=== PATIENT | female | born 1945 | race Caucasian/White ===

== ENCOUNTER → 2016-08-16 | Outpatient (CLI) | payer OTHER, MEDICARE ==
[~2016-08-16] MED LIST: ADVIN50050; ALBUAER2; ALL60; AMLO-110; ASPEC325; ATOR-26 PO; CARV12.52 PO; CHOL1000 PO; CLOP1TAB15 PO; CRDCD180; CZR50; EZET10TA38; HYDC25; HYDR25TA4 PO; INSU1INJ SC; INSUINJ; INSUINJ17; LSX20; LVMI; MAGN400T6; METH4PAK PO; NIAC1TAB59; NIFE30TA83 PO; POTASSIUM; PRLSR20 PO; SPIR25TA PO; SYN112
[2016-08-16 14:18] LABS: ALT/SGPT 31 U/L (12-78); AST/SGOT 19 U/L (15-37); BLOOD UREA NITROGEN 24 mg/dl (7-18); BUN/CREATININE RATIO 18.4 (10-20); CALCIUM 8.9 mg/dl (8.5-10.1); CARBON DIOXIDE 25 mmol/L (21-32); CHLORIDE 108 mmol/L (98-107); GLUCOSE 158 mg/dl (70-99); POTASSIUM 4.2 mmol/L (3.5-5.1); SODIUM 141 mmol/L (136-145)
[2016-08-16 14:29] LABS: ALB/GLOB RATIO 1.1 (0.9-2); ALKALINE PHOSPHATASE 123 U/L (45-117); CHOLESTEROL 162 mg/dl (0-200); CHOLESTEROL/HDL RATIO 3.6; HDL CHOLESTEROL 45 mg/dl; LDL CHOLESTEROL CALCULATED 88 mg/dl; TRIGLYCERIDES 143 mg/dl (0-150); VERY LOW DENSITY LIPOPROT CALC 29 mg/dl
[2016-08-16 14:35] LABS: ESTIMATED AVERAGE GLUCOSE 203 mg/dl; HA1C FLAG Normal (Normal)
== END | disposition home or self-care (01) ==
LOC: C.LABMFLN 08:12
PROVIDERS: ATTEND Family Medicine
DX: E11.51 Type 2 diabetes mellitus with diabetic peripheral angiopathy without gangrene (principal); E11.42 Type 2 diabetes mellitus with diabetic polyneuropathy; N18.3 Chronic kidney disease, stage 3 (moderate); I12.9 Hypertensive chronic kidney disease with stage 1 through stage 4 chronic kidney disease, or unspecified chronic kidney disease; E78.00 Pure hypercholesterolemia, unspecified; E03.9 Hypothyroidism, unspecified; E11.22 Type 2 diabetes mellitus with diabetic chronic kidney disease

== ENCOUNTER → 2016-09-17 | Outpatient (CLI) | payer OTHER, MEDICARE ==
[~2016-09-17] MED LIST changes: +AMOX875T PO; +CIPR-255 PO; +DOXY100C76 PO; +OXYC-57 PO
[2016-09-17 13:32] LABS: URINE APPEARANCE CLEAR (CLEAR); URINE BILIRUBIN NEG (NEG); URINE COLOR YELLOW; URINE NITRITE NEG (NEG); URINE SPECIFIC GRAVITY 1.013 (1.000-1.030); UROBILINOGEN NEG (NEG)
[2016-09-17 13:33] LABS: HEMATOCRIT 36.7 % (37-47); MEAN CELL VOLUME 93.9 fL (80-100); MEAN CORPUSCULAR HEMOGLOBIN 30.4 pg (25-34); MEAN CORPUSCULAR HGB CONC 32.4 g/dl (32-36); MEAN PLATELET VOLUME 10.9 fL (7.4-10.4); PLATELET COUNT 268 K/uL (130-400); RED BLOOD COUNT 3.91 M/uL (4.2-5.4); WHITE BLOOD COUNT 9.93 K/uL (4.8-10.8)
[2016-09-17 13:41] LABS: URINE PROTIEN/CREAT RATIO 0.1 (0-0.2); URINE TOTAL PROTEIN 10.9 mg/dl (0-11.9)
[2016-09-17 13:57] LABS: MANUAL MICROSCOPIC REQUIRED? NO; REVIEW REQ? NO
[2016-09-17 14:33] LABS: BLOOD UREA NITROGEN 28 mg/dl (7-18); BUN/CREATININE RATIO 20.3 (10-20); CALCIUM 9.1 mg/dl (8.5-10.1); CARBON DIOXIDE 23 mmol/L (21-32); CHLORIDE 105 mmol/L (98-107); GLUCOSE 206 mg/dl (70-99); PHOSPHORUS 3.8 mg/dl (2.5-4.9); POTASSIUM 4.3 mmol/L (3.5-5.1); SODIUM 139 mmol/L (136-145)
== END | disposition home or self-care (01) ==
LOC: C.LABMFLN 09:35
PROVIDERS: ATTEND Internal Medicine Nephrology
DX: N18.3 Chronic kidney disease, stage 3 (moderate) (principal)

== ENCOUNTER → 2016-12-03 | Outpatient (CLI) | payer OTHER, MEDICARE ==
[~2016-12-03] MED LIST changes: -AMOX875T PO; -CIPR-255 PO; -DOXY100C76 PO; -OXYC-57 PO
[2016-12-03 13:37] LABS: ESTIMATED AVERAGE GLUCOSE 192 mg/dl; HA1C FLAG Normal (Normal)
[2016-12-03 13:55] LABS: BLOOD UREA NITROGEN 26 mg/dl (7-18); BUN/CREATININE RATIO 19.8 (10-20); CARBON DIOXIDE 25 mmol/L (21-32); CHLORIDE 110 mmol/L (98-107); GLUCOSE 161 mg/dl (70-99); POTASSIUM 4.8 mmol/L (3.5-5.1); SODIUM 142 mmol/L (136-145)
== END | disposition home or self-care (01) ==
LOC: C.LABMFLN 08:36
PROVIDERS: ATTEND Family Medicine
DX: E11.9 Type 2 diabetes mellitus without complications (principal); E78.00 Pure hypercholesterolemia, unspecified; E03.9 Hypothyroidism, unspecified; E55.9 Vitamin D deficiency, unspecified

== ENCOUNTER → 2016-12-05 | Outpatient (CLI) | payer OTHER, MEDICARE ==
--- NOTE | 2016-12-05 15:51 | MAMMOGRAPHY REPORT ---
BILATERAL DIGITAL SCREENING MAMMOGRAM WITH CAD: 12/05/2016 CLINICAL HISTORY: Routine screening. Patient has no complaints. TECHNIQUE: Bilateral CC and MLO views were obtained. Current study was also evaluated with a Compute r Aided Detection (CAD) system. COMPARISON: Comparison is made to exams dated: 12/01/2015 mammogram, 11/09/2014 mammogram, 04/07/2013 ma mmogram, 04/03/2012 mammogram, 03/15/2011 mammogram, and 02/08/2010 mammogram - [facility] nter. BREAST COMPOSITION: There are scattered areas of fibroglandular density in both breasts. FINDINGS: There is mild vascular calcification in the breasts. Scattered benign-appearing coarse mumtaz cifications. No new suspicious mass, architectural distortion or cluster of microcalcifications is s een. IMPRESSION: ACR BI-RADS CATEGORY 1: NEGATIVE There is no mammographic evidence of malignancy. A 1 year screening mammogram is recommended. The pa tient will receive written notification of the results. Approximately 10% of breast cancers are not detected with mammography. A negative mammographic report should not delay biopsy if a clinically suggestive mass is present. Britt Akbar M.D. ay/:12/05/2016 12:49:10 Pesticide Use Medical Coordinator: Patricia BARRERA(R)(M), [facility] letter sent: Normal 1/2 BI-RADS Code: ACR BI-RADS Category 1: Negative
== END | disposition home or self-care (01) ==
LOC: C.MAMM 10:39
PROVIDERS: ATTEND Family Medicine
DX: Z12.31 Encounter for screening mammogram for malignant neoplasm of breast (principal)

== ENCOUNTER → 2016-12-06 | Outpatient (CLI) | payer OTHER, MEDICARE ==
[2016-12-06 13:34] LABS: BASO % 0.2 %; BASO ABS # 0.01 K/uL (0-0.2); COMPLETE YES; EOS % 3.2 %; HEMATOCRIT 35.3 % (37-47); IG% 0.2 %; LYMPH % 20.6 %; LYMPH ABS # 1.36 K/uL (1.2-3.4); MEAN CELL VOLUME 93.6 fL (80-100); MEAN CORPUSCULAR HEMOGLOBIN 30.8 pg (25-34); MEAN CORPUSCULAR HGB CONC 32.9 g/dl (32-36); MONO % 6.8 %; PLATELET COUNT 183 K/uL (130-400); RED BLOOD COUNT 3.77 M/uL (4.2-5.4)
[2016-12-06 14:25] LABS: AMYLASE 81 U/L (25-115)
== END | disposition home or self-care (01) ==
LOC: C.LABMFLN 09:34
PROVIDERS: ATTEND Family Medicine
DX: R10.12 Left upper quadrant pain (principal); R59.0 Localized enlarged lymph nodes

== ENCOUNTER → 2016-12-11 | Outpatient (CLI) | payer OTHER, MEDICARE ==
--- NOTE | 2016-12-11 07:44 | DIAGNOSTIC IMAGING REPORT ---
SOFT TISSUE NECK WITHOUT HISTORY:71 [id number] Cervical lymphadenopathy. Patient complains of pain within the region of the mandible for approximately 2 months. COMPARISON: Brain MR 01/30/2016. TECHNIQUE: Multiple axial CT images of the soft tissues of the neck were obtained without IV contrast. FINDINGS: There is a 2 x 2 mm calculus within the superficial lobe of the anterior left parotid gland nicely seen on image 28 of the axial series compatible with sialolith. No obstructing calculus is seen within Stensen's duct. No inflammatory changes or mass identified. Bilateral submandibular and sublingual glands appear unremarkable. The nasopharynx, oropharynx and hypopharynx appear unremarkable. The preglottic fat is maintained and appears normal. The vallecula and piriform sinuses are symmetric. No pathologic adenopathy of the neck identified. Extensive atherosclerotic plaquing of the bilateral carotid bulbs is seen. Thyroid is homogeneous. There is mild biapical centrilobular emphysema. There is a 4 mm groundglass nodule of the apical posterior segment left upper lobe. 4 mm ground glass nodule in the apical segment right upper lobe also noted. Moderate ethmoid and maxillary mucosal thickening is present. Bubbly secretions are present within the left sphenoid sinus. The sella appears to be partially empty. There is prominent atherosclerotic plaquing of the vertebral arteries. Prior bilateral cataract repair. Multilevel facet arthropathy and intervertebral disc space narrowing is seen within the cervical spine. Disc space narrowing is most pronounced at the C5-C6 and C6-C7 levels. There is 4 mm anterolisthesis of C4 on C5 which is likely degenerative. IMPRESSION: 1. 2 x 2 mm sialolith involves the superficial lobe of the anterior left parotid gland without obstructing calculus seen within the parotid duct. No associated inflammatory changes identified. 2. No adenopathy of the neck. 3. Moderate paranasal sinus disease as above. 4. Extensive atherosclerotic plaquing of the bilateral carotid bulbs. 5. Multilevel degenerative changes of the cervical spine, most pronounced at C5-C6 and C6-C7. The above report was generated using voice recognition software. It may contain grammatical, syntax or spelling errors. Electronically signed by: Nathan Bell 12/11/2016 7:43 AM Dictated Date/Time: 12/11/2016 7:29 AM
--- NOTE | 2016-12-11 07:47 | DIAGNOSTIC IMAGING REPORT ---
GI SERIES W/AIR ROUTINE CLINICAL HISTORY: R10.12 Abdominal pain, [facility] [phone] [id number] [id number] E [id number]. Nausea. COMPARISON STUDY: None FLUOROSCOPY TIME: 2.3 minutes. FINDINGS: Patient initiates swallowing function well. The esophagus is normal in course and caliber. Gas esophageal junction is normal. Size and configuration stomach are normal. Duodenal bulb fills well. Duodenal sweep is unremarkable. IMPRESSION: Normal study Electronically signed by: Hussain Wing M.D. 12/11/2016 7:46 AM Dictated Date/Time: 12/11/2016 7:39 AM
== END | disposition home or self-care (01) ==
LOC: C.CTS 06:36
PROVIDERS: ATTEND Family Medicine
DX: R59.0 Localized enlarged lymph nodes (principal); R10.12 Left upper quadrant pain; I65.23 Occlusion and stenosis of bilateral carotid arteries; M47.892 Other spondylosis, cervical region; K11.5 Sialolithiasis

== ENCOUNTER → 2016-12-18 | Outpatient (CLI) | payer OTHER, MEDICARE ==
[2016-12-18 13:22] LABS: HEMATOCRIT 38.3 % (37-47)
[2016-12-18 13:40] LABS: TOTAL IRON BINDING CAPACITY 286 mcg/dl (250-450)
--- NOTE | 2016-12-27 07:01 | CODING QUERY MEDICAL NECESSITY ---
CQSUPPORTING DIAGNOSIS NEEDED A supporting diagnosis is required for the test/procedure performed on this patient in order for us to be reimbursed by the patient's insurance. Please provide a supporting diagnosis for the following test/procedure listed below next to the test name along with your signature. *If there is no additional diagnosis for this patient that would support the following test/procedure please document that below next to the test/procedure. Test(s)/Procedure(s) that require a supporting diagnosis: DOS 12/18/16 VITAMIN B12 TEST FOLIC ACID TEST Provider Signature: Date: Thank you Concepcion Griffith Health Information Management Once completed, please kindly fax back to [phone] For questions please call [phone]
== END | disposition home or self-care (01) ==
LOC: C.LABMFLN 08:57
PROVIDERS: ATTEND Family Medicine
DX: D64.9 Anemia, unspecified (principal)

== ENCOUNTER → 2017-01-29 | Outpatient (CLI) | payer OTHER, MEDICARE ==
[~2017-01-29] MED LIST changes: +CLOPIDOGREL BISULFATE 300 MG TAB PO ONE; +HYDROCORTISONE SOD SUCCINATE 100 MG/2 ML VIAL ONE
--- NOTE | 2017-01-29 11:22 | DIAGNOSTIC IMAGING REPORT ---
(CHEST) THORAX WITHOUT CT DOSE: 317.63 mGycm HISTORY: SCLERODERMA-PT WENT TO [facility] TECHNIQUE: Multiaxial CT images of the chest were performed without contrast. A dose lowering technique was utilized adhering to the principles of ALARA. COMPARISON: Abdomen and pelvis CT 12/03/2006. FINDINGS: The central airways are patent. No pleural effusions. No pneumothorax. There are innumerable scattered pulmonary nodules most pronounced within the lower lobes. The majority of these are groundglass. Some of the groundglass nodules demonstrate central cavitation. Minimal nodular thickening along the fissures. Dominant solid nodule is seen within the left lower lobe on image 188 and measures 7 mm. Mild subpleural reticulation is seen within the lungs most pronounced within the lower lobes. No suspicious lytic or blastic osseous lesions. No mediastinal or hilar lymphadenopathy. The heart is normal in size. Limited views of the upper abdomen demonstrate a normal liver and spleen. The visualized adrenal glands are unremarkable. Cholecystectomy. Slightly distended and partially fluid-filled mid to distal esophagus. Mild calcified plaque within the normal caliber thoracic aorta. Densely calcified left axillary lymph node. IMPRESSION: 1. There are innumerable scattered subcentimeter pulmonary nodules most pronounced within the lower lobes. The majority of these are groundglass and some of these demonstrate central cavitation. These are nonspecific but favor chronic inflammatory/infectious change given the relative stability from a [address] The dominant solid nodule within the left lower lobe measures 7 mm. Please refer to the chart below for recommended follow-up. 2. Mildly distended and fluid-filled esophagus which is typically seen in a patient with a history of scleroderma. 3. Mild subpleural reticulation within the lungs and a few subpleural nodular densities suggestive of a nonspecific interstitial pneumonitis (NSIP). Please refer to below summary of Fleischner criteria recommendations for follow-up of incidental CT nodules (Sherry Adams, Guidelines for management of small pulmonary nodules detected on CT scans: A statement from the Fleischner Society, Radiology 237: [phone].) SOLID NODULES Solitary nodule size: <6 mm * Low risk patients: no follow-up needed * high risk patients: optional CT at 12 months Solitary nodule size: 6-8 mm * Low risk patients: follow-up at 6-12 months, then consider further follow-up at 18-24 months * high risk patients: initial follow-up CT at 6-12 months and then at 18-24 months if no change Solitary nodule size: >8 mm * either low or high risk patients - consider follow-up CT at 3 months, and/or CT-PET, and/or biopsy Multiple nodules size: <6 mm * Low risk patients: no routine follow-up * high risk patients: optional CT at 12 months Multiple nodules size: 6-8 mm * Low risk patients: follow-up at 3-6 months, then consider further follow-up at 18-24 months * high risk patients: follow-up at 3-6 months, then at 18-24 months if no change Multiple nodules size: >8 mm * Low risk patients: follow-up at 3-6 months, then consider further follow-up at 18-24 months * high risk patients: follow-up at 3-6 months, then at 18-24 months if no change Note: newly detected indeterminate nodule in persons 35 years of age or older. * Low risk patients: minimal or absent history of smoking and/or other known risk factors * high risk patients: history of smoking or of other known risk factors (e.g. first degree relative with lung cancer, or exposure to asbestos, radon, uranium) * if a nodule up to 8 mm is partly solid or is ground glass further follow-up is required after 24 months to exclude possible slow growing adenocarcinoma (ANUPAMA) SUBSOLID NODULES Solitary pure ground-glass nodule * nodule size <6 mm - no CT follow-up required * nodule size >=6 mm - follow-up CT at 6-12 months, then every 2 years until 5 years Solitary part-solid nodule * nodule size <6 mm - no CT follow-up required * nodule size >=6 mm - follow-up CT at 3-6 months. If unchanged, and solid component remains <6 mm, then annual follow-up for 5 years Multiple subsolid nodules * nodule size <6 mm - follow-up CT at 3-6 months, consider further follow-up at 2 and 4 years if stable * nodule size >=6 mm - follow-up CT at 3-6 months, subsequent management based on the most suspicious nodule(s) Electronically signed by: Severiano Brown M.D. 01/29/2017 2:10 PM Dictated Date/Time: 01/29/2017 11:13 AM
--- NOTE | 2017-01-29 17:40 | ECHOCARDIOGRAM REPORT ---
*NOTICE TO RECEIVING DEMOCRAT AGENCY This information is strictly Confidential and protected under [place] law. [place] law prohibits you from making any further disclosure of this information unless further disclosure is expressly permitted by the written consent of the person to whom it pertains or is authorized by law. A general authorization for the release of medical or other information is not sufficient for this purpose. Hospital accepts no responsibility if the information is made available to any other person, INCLUDING THE PATIENT. Interpretation Summary * Name: BARRON BOND Study Date: 01/29/2017 11:36 AM BP: 170/57 mmHg * Patient Location: [facility] HR: 59 * : 1945 (M/d/yyyy) Gender: Female Height: 65 in * Age: 71 yrs Ethnicity: CA Weight: 175 lb * Ordering Physician: Agustín Jarvis * Referring Physician: Agustín Jarvis * Performed By: Radha Krishnan RCS * * Reason For Study: SCLERADERMA * BSA: 1.9 m2 * Normal left ventricular systolic function. * Moderate concentric left venntricular hypertrophy. * Type II LV diastolic dysfunction. * Trace pulmonic, mitral, and tricuspid regurgitation. * -- Conclusions -- * Aortic valve sclerosis moderate, without significant aortic valvular stenosis. Procedure Details * A complete two-dimensional transthoracic echocardiogram was performed (2D, M-mode, Doppler and color flow Doppler). Left Ventricle * The left ventricle is normal in size. * There is moderate concentric left ventricular hypertrophy. * Left ventricular systolic function is normal. * Ejection Fraction = 55-60%. * A full diastolic examination was done with clinical findings of Class II diastolic dysfunction. * The left ventricular wall motion is normal. Right Ventricle * The right ventricle is normal in size and function. Atria * The left atrium is moderately dilated. * Right atrial size is normal. * No ASD detected; PFO is not assessed. Mitral Valve * The mitral valve is normal. * There is no mitral valve stenosis. * There is trace mitral regurgitation. Tricuspid Valve * The tricuspid valve is normal. * There is no tricuspid stenosis. * There is trace tricuspid regurgitation. Aortic Valve * Aortic valve sclerosis moderate, without significant aortic valvular stenosis. * No hemodynamically significant valvular aortic stenosis. * No aortic regurgitation is present. Pulmonic Valve * The pulmonary valve is inadequately visualized, but the Doppler data is adequate for interpretation. * There is no pulmonic valvular stenosis. * Trace pulmonic valvular regurgitation. Great Vessels * The aortic root is normal size. Pericardium/Pleural * There is no pericardial effusion. Great Vessels * Normal inferior vena cava diameter and respiratory variation suggests normal central venous pressure. MMode 2D Measurements and Calculations IVSd 1.6 cm IVSs 1.7 cm LVIDd 4.8 cm LVIDs 3.3 cm LVPWd 1.5 cm LVPWs 1.5 cm IVS/LVPW 1.1 FS 32.1 % EDV(Teich) 107.4 ml ESV(Teich) 42.7 ml EF(Teich) 60.2 % EDV(cubed) 110.5 ml ESV(cubed) 34.5 ml EF(cubed) 68.8 % % IVS thick 4.8 % % LVPW thick 1.1 % LV mass(C)d 323.9 grams LV mass(C)dI 173.3 grams/m\S\2 LV mass(C)s 198.6 grams LV mass(C)sI 106.3 grams/m\S\2 SV(Teich) 64.7 ml SI(Teich) 34.6 ml/m\S\2 SV(cubed) 75.9 ml SI(cubed) 40.6 ml/m\S\2 Ao root diam 3.0 cm Ao root area 6.9 cm\S\2 ACS 1.8 cm LA dimension 4.9 cm LA/Ao 1.6 LVOT diam 1.8 cm LVOT area 2.6 cm\S\2 LVAd ap4 33.9 cm\S\2 LVLd ap4 8.6 cm EDV(MOD-sp4) 113.6 ml EDV(sp4-el) 113.9 ml LVAs ap4 22.6 cm\S\2 LVLs ap4 7.1 cm ESV(MOD-sp4) 59.2 ml ESV(sp4-el) 61.2 ml EF(MOD-sp4) 47.9 % EF(sp4-el) 46.3 % LVAd ap2 31.0 cm\S\2 LVLd ap2 7.7 cm EDV(MOD-sp2) 100.1 ml EDV(sp2-el) 106.0 ml LVAs ap2 19.9 cm\S\2 LVLs ap2 6.7 cm ESV(MOD-sp2) 51.0 ml ESV(sp2-el) 50.7 ml EF(MOD-sp2) 49.0 % EF(sp2-el) 52.2 % LVLd %diff -11.11 % EDV(MOD-bp) 109.8 ml LVLs %diff -6.49 % ESV(MOD-bp) 56.4 ml EF(MOD-bp) 48.6 % SV(MOD-sp4) 54.4 ml SI(MOD-sp4) 29.1 ml/m\S\2 SV(MOD-sp2) 49.1 ml SI(MOD-sp2) 26.3 ml/m\S\2 SV(MOD-bp) 53.4 ml SI(MOD-bp) 28.5 ml/m\S\2 SV(sp4-el) 52.7 ml SI(sp4-el) 28.2 ml/m\S\2 SV(sp2-el) 55.3 ml SI(sp2-el) 29.6 ml/m\S\2 Doppler Measurements and Calculations MV E max elana 120.2 cm/sec MV A max elana 105.7 cm/sec MV E/A 1.1 MV P1/2t max elana 118.9 cm/sec MV P1/2t 71.2 msec MVA(P1/2t) 3.1 cm\S\2 MV dec slope 488.9 cm/sec\S\2 MV dec time 0.19 sec Ao V2 max 136.3 cm/sec Ao max PG 7.4 mmHg Ao max PG (full) 3.9 mmHg CHIQUI(V,A) 1.8 cm\S\2 CHIQUI(V,D) 1.8 cm\S\2 LV V1 max PG 3.6 mmHg LV V1 max 94.4 cm/sec PA V2 max 93.0 cm/sec PA max PG 3.5 mmHg
--- NOTE | 2017-01-30 16:52 | PULMONARY FUNCTION TEST ---
CLINICAL DATA: The patient is a 71-year-old female with height of 65 inches and a weight of [address] Agustín Jarvis for evaluation of scleroderma. Spirometry pre- and post-bronchodilator, lung volumes, and DLCO were performed. FINDINGS: Pre-bronchodilator spirometry demonstrates mild obstructive airways disease. FVC was 85% of predicted. FEV1 was 75% of predicted. [id number] was 46% of predicted. There was improvement after inhaled bronchodilator. FVC improved 2% to 87% predicted. FEV1 improved 1% to 76% of predicted. [id number] improved 19% to 55% of predicted. Lung volumes did not show significant restrictive lung disease. Residual volume is 93% of predicted. Diffusion capacity is moderately reduced at 58% of predicted with a normal DLCO/VA of 100% of predicted. IMPRESSION: Mild obstructive airways disease with improvement in smaller airway after inhaled bronchodilator. No evidence of restrictive lung disease on lung volumes. Moderate reduction in diffusion capacity. MTDD
== END | disposition home or self-care (01) ==
LOC: C.RC 09:49
PROVIDERS: ATTEND Family Medicine
DX: M34.9 Systemic sclerosis, unspecified (principal)

== ENCOUNTER 2017-02-15 06:56 | Inpatient (IN) | payer OTHER, MEDICARE ==
[~2017-02-15] VITALS: Ht 165.1 cm; Wt 79.3 kg
[2017-02-15] VITALS (20 sets, daily range): BP systolic 139–179; BP diastolic 66–96; PULSE 52–80; TEMP 36.4–36.7; O2SAT 92–99; Ht 165.1 cm; Wt 79.3 kg
[~2017-02-15 06:56] MED LIST changes: -ATOR-26 PO; -CARV12.52 PO; -CHOL1000 PO; -CLOP1TAB15 PO; -CLOPIDOGREL BISULFATE 300 MG TAB PO ONE; -HYDR25TA4 PO; -HYDROCORTISONE SOD SUCCINATE 100 MG/2 ML VIAL ONE; -INSU1INJ SC; -LVMI; -METH4PAK PO; -NIFE30TA83 PO; -PRLSR20 PO; -SPIR25TA PO
[2017-02-15] MEDS ORDERED: SODIUM CHLORIDE 0.9% 1000ML 1,000 ML IV SCH (07:19)
[2017-02-15] MEDS ORDERED: CEFAZOLIN 1000MG/55 ML D5W 55 ML IV SCH (07:30)
[2017-02-15] MEDS ORDERED: HYDR25TA4 PO (07:49)
[2017-02-15] MEDS ORDERED: ATOR-26 PO (07:49)
[2017-02-15] MEDS ORDERED: SPIR25TA PO ×2 (07:49→07:51)
[2017-02-15] MEDS ORDERED: NIFE30TA83 PO (07:49)
[2017-02-15] MEDS ORDERED: CHOL1000 PO (07:49)
[2017-02-15] MEDS ORDERED: LVMI (07:49)
[2017-02-15] MEDS ORDERED: CARV12.52 PO (07:49)
[2017-02-15] MEDS ORDERED: PRLSR20 PO (07:49)
[2017-02-15] MEDS ORDERED: CLOP1TAB15 PO (07:49)
[2017-02-15] MEDS ORDERED: INSU1INJ SC (07:53)
[2017-02-15] MEDS ORDERED: ATROPINE SULFATE 0.1 MG/ML 5ML SYR IV PRN (08:00)
[2017-02-15] MEDS ORDERED: FENTANYL CITRATE INJ 50 MCG/1 ML 2 ML VIAL IV PRN (08:00)
[2017-02-15] MEDS ORDERED: EpHEDrine SULFATE INJ 50 MG/ML AMP IV PRN (08:00)
[2017-02-15] MEDS ORDERED: ONDANSETRON INJ 2 MG/ML 2 ML VIAL IV PRN ×2 (08:00→11:30)
[2017-02-15 08:10] LABS: CREATININE 1.5 mg/dl (0.60-1.20)
--- NOTE | 2017-02-15 08:26 | History and Physical ---
History & Physical Date Feb 15, 2017. (Marzena Pastor, EDILIA) Chief Complaint RLE PAD with rest pain (Marzena Pastor, EDILIA) History of Present Illness The patient is a 71 year old female with hx of scleroderma, HTN, DMII on insulin , hx of L CEA and LLE fem-pop bypass in remote past, seen today for RLE PAD with rest pain. Pt has known PAD and underwent LLE fem-pop bypass at [facility] by Dr Radha Lopez. Pt states RLE became painful with ambulation about 2-3 weeks ago, but worsened to severe pain that has been keeping her awake at night for past few days, so she called our office. Pt denies QUINTERO, fever, chills, chest pain, SOB, abd pain, N/V, other ulcerations. Arterial US in office demonstrates severe disease RLE and ARABELLA of 0.2. (Marzena Pastor, EDILIA) Allergies Coded Allergies: Iodinated Diagnostic Agents (Verified Allergy, Intermediate, HIVES - IVP DYE, 02/15/17) CHECO Inhibitors (Unverified Allergy, Mild, 02/15/17) Insulin Aspart (Verified Allergy, Mild, UNKNOWN, 02/15/17) Insulin Glargine (Verified Allergy, Mild, UNKNOWN, 02/15/17) Enflurane (Verified Allergy, Unknown, 02/15/17) Home Medications Scheduled Atorvastatin (Lipitor), 80 MG PO DAILY Carvedilol (Coreg), 1 TAB PO BID Cholecalciferol (Vitamin D3), 1 TAB PO DAILY Clopidogrel (Plavix), 75 MG PO DAILY Hydrochlorothiazide (Hctz), 1 TAB PO DAILY Omeprazole (Prilosec), 20 MG PO DAILY Spironolactone (Aldactone), 25 MG PO BID Miscellaneous Medications Albuterol (Ventolin) Fluticasone Prop/Salmeterol (Advair Diskus 500/50 Mcg *) Furosemide (Lasix *) Insulin Detemir (Levemir), 32 Insulin Isophan/Regular (Humulin 70/30), 0 SC Levothyroxine (Synthroid *) Losartan Potassium (Cozaar *) Nifedipine Ext Rel (Procardia Xl Ext Rel), 30 MG PO Surgical / Medical History Past Medical/Surgical History: Diabetes, Hypertension (Marzena Pastor PA-C) Family History + DMII, HTN (Marzena Pastor PA-C) Social History Smoking Status: Never Smoker (Marzena Pastor PA-C) Review of Systems Constitutional: No chills, No fever, No malaise Skin: No change in color Eyes: No visual changes ENMT: No sore throat Respiratory: No cough, No PRATHER Cardiovascular: + intermittent claudication, No chest pain, No edema Gastrointestinal: No abdominal pain, No nausea, No vomiting Genitourinary - Female: No dysuria, No hematuria Neurologic: No dizziness, No headache, No numbness, No tingling (Marzena Pastor PA-C) Physical Exam Constitutional: General Apperance: heathly-appearing, well-nourished, well-developed Level of Distress: NAD Psychiatric: Mental Status: active & alert, normal mood, normal affect Orientation: oriented except where noted, to time, to place, to person Memory: recent memory normal, remote memory normal Head: normocephalic, atraumatic Eyes: EOM: EOMI ENMT: normal ENT inspection, hearing grossly normal Neck: supple, trachea midline Lungs: Respiratory effort: no dyspnea Auscultation: no rales/crackles, no rhonchi, decreased breath sounds Cardiovascular: Apical Impulse: not displaced Heart Auscultation: RRR, no rubs, no gallops Peripheral Pulses: Pulses: full and equal, in all extremities except if noted Bruits: none appreciated Carotid Pulse: normal on the left, normal on the right Brachial Pulses: normal on the left, normal on the right Radial Pulse: normal on the left, normal on the right Femoral Pulse: normal on the left, normal on the right Posterior Tibialis Pulse: decreased on the left, absent on the right Dorsalis Pedis Pulse: decreased on the left, absent on the right Abdomen: Bowel Sounds: normal Inspection & Palpation: soft, non-distended, no tenderness, guarding & rebound Musculoskeletal: normal strength (5/5 throughout), normal tone Extremities: Upper Right: no cyanosis, no edema, no varicosities Upper Left: no cyanosis, no edema, no varicosities Lower Right: no cyanosis, no edema, no varicosities Lower Left: no cyanosis, no edema, no varicosities Neurologic: Cranial Nerves: grossly intact (Marzena Pastor, PA-C) Assessment and Plan ASSESSMENT and PLAN: Severe PAD with rest pain RLE Pt for RLE angiogram with intervention and possible fem-pop bypass by Dr Christianson today. Procedure, risks, benefits, and alternatives discussed with pt, she expresses understanding and agreement. (Marzena Pastor, PA-C) Patient was seen, examined, and chart reviewed. Agree with exam and treatment plan of the Vascular PA. Patient for revascularization of the right lower extremity. I have discussed the risks options and benefits of the procedure with the patient. The patient understands the risks options and benefits and agrees to the procedure. (Wesley Christianson M.D.)
[2017-02-15 08:36] LABS: COMPLETE YES; EOS % 4.7 %; HEMATOCRIT 35.4 % (37-47); IG% 0.4 %; LYMPH % 32.1 %; LYMPH ABS # 1.71 K/uL (1.2-3.4); MEAN CELL VOLUME 93.9 fL (80-100); MEAN CORPUSCULAR HEMOGLOBIN 30.8 pg (25-34); MEAN CORPUSCULAR HGB CONC 32.8 g/dl (32-36); MEAN PLATELET VOLUME 10.5 fL (7.4-10.4); MONO % 8.6 %; NEUT % 54.2 %; PLATELET COUNT 164 K/uL (130-400); RED BLOOD COUNT 3.77 M/uL (4.2-5.4); WHITE BLOOD COUNT 5.32 K/uL (4.8-10.8)
[2017-02-15] MEDS ORDERED: DiphenhydrAMINE HCL 50 MG/ML VIAL ONE (08:36)
[2017-02-15] MEDS ORDERED: HYDROCORTISONE SOD SUCCINATE 100 MG/2 ML VIAL ONE (08:37)
[2017-02-15 08:45] LABS: BUN/CREATININE RATIO 20.3 (10-20); CALCIUM 9.5 mg/dl (8.5-10.1); CREATININE 1.5 mg/dl (0.60-1.20); POTASSIUM 4.4 mmol/L (3.5-5.1)
[2017-02-15] MEDS ORDERED: DiphenhydrAMINE INJ 50 MG in SYRINGE 0 ML IV SCH ×2 (08:45→14:00)
[2017-02-15] MEDS ORDERED: PROPOFOL IV EMULSION 10 MG/ML 20 ML VIAL IV ONE (09:12)
[2017-02-15] MEDS ORDERED: FENTANYL CITRATE INJ 50 MCG/1 ML 2 ML VIAL ONE (09:12)
[2017-02-15] MEDS ORDERED: LIDOCAINE HCL 2% 2 ML VIAL (20MG/ML) ONE (09:12)
[2017-02-15] MEDS ORDERED: MIDAZOLAM HCL 1 MG/ML 2ML VIAL ONE (09:12)
[2017-02-15] MEDS ORDERED: ROCURONIUM BROMIDE 10 MG/ML 5 ML VIAL IV ONE (09:12)
[2017-02-15] MEDS ORDERED: SCOPOLAMINE 1.5 MG TDSY TD ONE (09:14)
[2017-02-15] MEDS ORDERED: LIDOCAINE HCL 1% 20 ML VIAL ONE (09:20)
[2017-02-15] MEDS ORDERED: GELATIN SPONGE SZ 100 ONE (09:20)
[2017-02-15] MEDS ORDERED: IODIXANOL (VISIPAQUE) 270 MG/ML 50ML ONE (09:20)
[2017-02-15] MEDS ORDERED: BUPIVACAINE/EPINEPHRINE 0.5% MPF 1:200,000 30 ML VIAL ONE (09:20)
[2017-02-15] MEDS ORDERED: PAPAVERINE HCL INJ 30 MG/ML 2 ML VIAL ONE (09:21)
[2017-02-15] MEDS ORDERED: HEPARIN SOD (PORCINE) 1000 UNIT/ML 10 ML VIAL ONE ×2 (09:21→11:22)
[2017-02-15] MEDS ORDERED: THROMBIN 5000 UNITS KIT ONE (09:21)
[2017-02-15] MEDS ORDERED: CEFAZOLIN SOD 1 GM VIAL ONE (09:21)
[2017-02-15] MEDS ORDERED: NURSING VERBAL MED ORDER ONE (09:30)
[2017-02-15] MEDS ORDERED: HYDROCORTISONE IV 100 MG in SYRINGE 0 ML IV SCH ×2 (09:45→14:00)
[2017-02-15] MEDS ORDERED: HEPARIN 25000 UNIT/500 ML D5W ONE (10:57)
[2017-02-15] MEDS ORDERED: GLYCOPYRROLATE INJ 0.2 MG/ML VIAL ONE (11:01)
[2017-02-15] MEDS ORDERED: NEOSTIGMINE METHYLSULFATE 5 MG/5 ML SYR ONE (11:01)
[2017-02-15] MEDS ORDERED: ONDANSETRON INJ 2 MG/ML 2 ML VIAL ONE (11:01)
[2017-02-15] MEDS ORDERED: IODIXANOL (VISIPAQUE) 270 MG/ML 150ML IV ONE (11:16)
[2017-02-15] MEDS ORDERED: ALTEPLASE, RECOMBINANT 0 MG in SODIUM CHLORIDE 0.9% 250ML 250 ML IV ONE ×2 (11:20)
--- NOTE | 2017-02-15 11:20 | [facility] Post Operative Brief Note ---
Immediate Operative Summary Operative Date Feb 15, 2017. Pre-Operative Diagnosis Severe PAD with rest pain RLE Post-Operative Diagnosis Same Procedure(s) Performed Right Lower Extremity Angiogram Mechanical Atherectomy right popliteal Percutaneous Angioplasty Popliteal Artery Insertion of Infusion Catheter for Thrombolysis Surgeon Lyndsay Driller Helper Surgeon(s) None Estimated Blood Loss 10 Findings right pop occlusion, no residual stenosis, distal lower leg occlusion of all three vessels Specimens None Anesthesia Gen Complication(s) None Disposition Surgical ICU
[2017-02-15] MEDS ORDERED: GLUCOSE 40% GEL 15 GM TUBE PO PRN (11:30)
[2017-02-15] MEDS ORDERED: DEXTROSE 50% 50 ML SYR IV PRN (11:30)
[2017-02-15] MEDS ORDERED: GLUCAGON FOR INJ 1 MG VIAL SQ PRN (11:30)
[2017-02-15] MEDS ORDERED: GLUCOSE 10 TABS/TUBE PO PRN (11:30)
[2017-02-15] MEDS ORDERED: MoRPHine SULFATE 2 MG/ML CARP IV PRN (11:30)
--- NOTE | 2017-02-15 11:59 | Anesthesiology Progress Note ---
Anesthesia Post Op Note Date & Time Feb 15, 2017 at 11:58 Vital Signs Pain Intensity: 0 Vital Signs Past 12 Hours Date Time Temp Pulse Resp B/P (MAP) Pulse Ox O2 Delivery O2 Flow Rate FiO2 02/15/17 11:49 36.6 59 17 163/66 98 Oxymask 10 02/15/17 11:40 36.6 60 17 165/67 98 Oxymask 10 02/15/17 11:31 36.4 60 18 155/66 98 Oxymask 10 02/15/17 07:33 36.5 52 18 146/67 (93) 99 Room Air Notes Mental Status: alert / awake / arousable, participated in evaluation Pt Amnestic to Procedure: Yes Nausea / Vomiting: adequately controlled Pain: adequately controlled Airway Patency, RR, SpO2: stable & adequate BP & HR: stable & adequate Hydration State: stable & adequate Anesthetic Complications: no major complications apparent Pt was being taken straight to ICU for TPA management. Pt was stable intra- operatively. Pt was transported to the ICU with O2 and monitors. Report was given to the mold yarn supervisor. Care was transferred to the ICU team.
[2017-02-15 12:07] LABS: COMPLETE YES; EOS % 2.3 %; HEMATOCRIT 35.3 % (37-47); IG% 0.3 %; LYMPH % 20.8 %; LYMPH ABS # 1.25 K/uL (1.2-3.4); MEAN CELL VOLUME 93.4 fL (80-100); MEAN CORPUSCULAR HGB CONC 33.1 g/dl (32-36); MEAN PLATELET VOLUME 10.9 fL (7.4-10.4); MONO % 2.8 %; NEUT % 73.8 %; PLATELET COUNT 148 K/uL (130-400); RED BLOOD COUNT 3.78 M/uL (4.2-5.4)
[2017-02-15 12:43] LABS: PARTIAL THROMBOPLASTIN RATIO 4.7
[2017-02-15] MEDS ORDERED: RECOMBINANT IV SCH ×2 (13:00)
[2017-02-15] MEDS ORDERED: HEPARIN 25,000 UNIT/500ML D5W 500 ML IV SCH (13:00)
[2017-02-15] MEDS ORDERED: SODIUM CHLORIDE 0.9% IV SCH ×2 (13:00)
[2017-02-15] MEDS ORDERED: MoRPHine SULFATE 4 MG/ML 1 ML CARP\\VIAL IV PRN (13:00)
[2017-02-15] MEDS ORDERED: ALTEPLASE IV SCH ×2 (13:00)
--- NOTE | 2017-02-15 13:27 | Critical Care Consultation ---
Critical Care Consultation Date of Consultation: Feb 15, 2017. Attending Physician: Wesley Umana M.D. Reason for Consultation: Catheter directed TPA to the RLE Popliteal s/p RLE Angiogram with Mechanical Atherectomy to the RIGHT Popliteal Artery History of Present Illness Patient is a 71-year-old female admitted to the ICU status post RIGHT lower extremity angiogram with mechanical atherectomy with catheter placement for catheter directed TPA administration. Patient has a significant past medical history of coronary artery disease as well as peripheral artery disease. She has undergone bilateral CEA as well as femoropopliteal bypass to the LEFT lower extremity in the past. She reports no history of DC, ACS, or stenting of the coronary vessels. The patient has been experiencing claudication at rest to the RIGHT lower extremity which prompted evaluation and treatment. The patient was evaluated under general anesthesia with mechanical atherectomy of the RIGHT popliteal. In addition, catheter was placed for catheter directed TPA. She has regained some pulses to the RIGHT lower extremity. Upon arrival to the ICU, the patient denies any pain. She does report feeling drowsy from anesthesia. She denies any headaches, dizziness, lightheadedness, palpitations, shortness of breath, nausea, vomiting, abdominal pain, or extremity pain. Past Medical/Surgical History CAD PAD GERD Diabetes Hypertension Hypothyroidism Asthma Scleroderma Vertigo Ligament renal neoplasm with subsequent nephrectomy CEA (Bilateral) LEFT femoropopliteal bypass Social History Smoking Status: Never Smoker Smokeless Tobacco Use: No Alcohol Use: none Drug Use: none Marital Status: Housing Status: lives with family Occupation Status: retired Allergies Coded Allergies: Iodinated Diagnostic Agents (Verified Allergy, Intermediate, HIVES - IVP DYE, 02/15/17) CHECO Inhibitors (Unverified Allergy, Mild, 02/15/17) Insulin Aspart (Verified Allergy, Mild, UNKNOWN, 02/15/17) Insulin Glargine (Verified Allergy, Mild, UNKNOWN, 02/15/17) Enflurane (Verified Allergy, Unknown, 02/15/17) Home Medications Scheduled Atorvastatin (Lipitor), 80 MG PO DAILY Carvedilol (Coreg), 1 TAB PO BID Cholecalciferol (Vitamin D3), 1 TAB PO DAILY Clopidogrel (Plavix), 75 MG PO DAILY Hydrochlorothiazide (Hctz), 1 TAB PO DAILY Omeprazole (Prilosec), 20 MG PO DAILY Spironolactone (Aldactone), 25 MG PO BID Miscellaneous Medications Albuterol (Ventolin) Fluticasone Prop/Salmeterol (Advair Diskus 500/50 Mcg *) Furosemide (Lasix *) Insulin Detemir (Levemir), 32 Insulin Isophan/Regular (Humulin 70/30), 0 SC Levothyroxine (Synthroid *) Losartan Potassium (Cozaar *) Nifedipine Ext Rel (Procardia Xl Ext Rel), 30 MG PO Current Inpatient Medications Current Inpatient Medications Medications (Trade) Dose Ordered Sig/González Route Start Time Stop Time Status Last Admin Dose Admin Sodium Chloride 1,000 ml @ 100 mls/hr Q10H IV 02/15/17 07:19 02/15/17 17:18 02/15/17 07:31 100 MLS/HR Morphine Sulfate (MoRPHine SULFATE INJ) SEE LABEL COMMENTS Q2H PRN IV 02/15/17 11:30 03/01/17 11:29 Ondansetron HCl (Zofran Inj) 4 mg Q6H PRN IV 02/15/17 11:30 03/17/17 11:29 Heparin Sodium/ Dextrose 500 ml @ 12 mls/hr Q24H IV 02/15/17 13:00 03/17/17 11:29 Miscellaneous Information (Order Awaiting Action) 1 ea QS N/A 02/15/17 16:00 03/17/17 15:59 Atorvastatin Calcium (Lipitor Tab) 80 mg DAILY PO 02/16/17 09:00 03/18/17 08:59 Carvedilol (Coreg Tab) 12.5 mg BID PO 02/15/17 21:00 03/17/17 20:59 Cholecalciferol (Vitamin D Tab) 1,000 inter.unit DAILY PO 02/16/17 09:00 03/18/17 08:59 Clopidogrel Bisulfate (plAVix TAB) 75 mg DAILY PO 02/16/17 09:00 03/18/17 08:59 Miscellaneous Information (Order Awaiting Action) 1 ea QS N/A 02/15/17 16:00 03/17/17 15:59 Furosemide (Lasix Tab) 20 mg DAILY PO 02/16/17 09:00 03/18/17 08:59 Hydrochlorothiazide (Hydrochlorothiazide Tab) 25 mg DAILY PO 02/16/17 09:00 03/18/17 08:59 Levothyroxine Sodium (Synthroid Tab) 112 mcg DAILYBB PO 02/16/17 06:00 03/18/17 05:59 Losartan Potassium (coZAAR TAB) 100 mg DAILY PO 02/16/17 09:00 03/18/17 08:59 Nifedipine (Procardia Xl Tab) 30 mg DAILY PO 02/16/17 09:00 03/18/17 08:59 Spironolactone (Aldactone Tab) 25 mg BID PO 02/15/17 21:00 03/17/17 20:59 Pantoprazole Sodium (Protonix Tab) 40 mg QAM PO 02/16/17 09:00 03/18/17 08:59 Glucose (Glucose 40% Gel) 15-30 GRAMS 15 GRAMS... UD PRN PO 02/15/17 11:30 03/17/17 11:29 Glucose (Glucose Chew Tab) 4-8 Tablets 4 Tabl... UD PRN PO 02/15/17 11:30 03/17/17 11:29 Dextrose (Dextrose 50% 50ML Syringe) 25-50ML OF 50% DW IV FOR... UD PRN IV 02/15/17 11:30 03/17/17 11:29 Glucagon (Glucagon Inj) 1 mg UD PRN SQ 02/15/17 11:30 03/17/17 11:29 Insulin Human Regular (novoLIN-R) SLIDING SCALE IF C... ACHS SC 02/15/17 16:00 03/17/17 15:59 Alteplase, Recombinant 25 mg/ Sodium Chloride 250 ml @ 20 mls/hr [id number] IV 02/15/17 13:00 02/15/17 16:59 Miscellaneous (Stop Order) 1 ea TODAY@1659 ONCE N/A 02/15/17 16:59 02/15/17 17:00 Morphine Sulfate (MoRPHine SULFATE INJ) SEE LABEL COMMENTS Q2H PRN IV 02/15/17 13:00 03/01/17 12:59 Review of Systems A complete 10-point Review of Systems was discussed with the patient, with pertinent positives and negatives listed in the History of Present Illness. All remaining Review of Systems questions can be considered negative unless otherwise specified. Physical Exam Date Time Temp Pulse Resp B/P (MAP) Pulse Ox O2 Delivery O2 Flow Rate FiO2 02/15/17 12:31 36.6 61 16 164/74 (104) 92 Nasal Cannula 2.0 02/15/17 12:26 59 15 163/75 (104) 96 Nasal Cannula 2.0 02/15/17 12:21 60 21 157/69 (98) 94 Nasal Cannula 2.0 02/15/17 12:16 36.6 60 16 156/70 (98) 93 Nasal Cannula 2.0 02/15/17 12:10 36.7 62 18 168/71 92 Nasal Cannula 2 02/15/17 12:04 36.6 63 17 155/67 93 Nasal Cannula 2 02/15/17 11:58 36.7 59 13 159/68 92 Nasal Cannula 2 02/15/17 11:49 36.6 59 17 163/66 98 Oxymask 10 02/15/17 11:40 36.6 60 17 165/67 98 Oxymask 10 02/15/17 11:31 36.4 60 18 155/66 98 Oxymask 10 02/15/17 07:33 36.5 52 18 146/67 (93) 99 Room Air VITAL SIGNS - Vital signs and nursing notes were reviewed. GENERAL - 71-year-old female appearing her stated age who is in no acute distress. Communicates well with provider and answers questions appropriately. SKIN - Without rashes. HEAD - NC/AT. EYES - PERRL with EOMI bilaterally. Sclera anicteric. Palpebral conjunctiva pink and moist with no injection noted. EARS - No deformities of external structures noted on gross examination bilaterally. No pain elicited with palpation of the tragus bilaterally. External auditory canals without discharge or otorrhea. Tympanic membranes pearly celaya without retraction or bulging. No fluid or purulent material visualized behind the TM. Handle of malleus, umbo, cone of light, pars tensa/ flaccid all easily visualized. NOSE - Midline and without cyanosis. No epistaxis or purulent drainage noted. Septum midline without deviation or septal hematoma noted. MOUTH/OROPHARYNX - Without perioral cyanosis. Buccal mucosa pink and moist and without leukoplakia. Tongue midline with equal elevation of palate bilaterally. No tonsillar hypertrophy, erythema, or exudates noted. Good dentition noted. NECK - Neck with FROM. Supple to palpation. LUNGS - Chest wall symmetric without accessory muscle use, intercostals retractions, or central cyanosis. Normal vesicular breath sounds CTA B/L. No wheezes, rales, or rhonchi appreciated. CARDIAC - RRR with S1/S2. No murmur, rubs, or gallops appreciated. ABDOMEN - Abdominal contour flat without pulsations or visible masses. BS normoactive all four quadrants. No tenderness, palpable masses, hepatosplenomegaly, or ascites noted. EXTREMITIES - No clubbing or peripheral cyanosis. No pretibial edema present. Catheter in place to the LEFT groin. +3/5 dorsalis pedis pulses palpated to the LLE. Pulses Dopplered to the dorsalis pedis and posterior tibial areas. +5/5 strength noted in UE/LE bilaterally. NEUROLOGIC - Cranial nerves II through XII grossly intact. Sensory intact to light touch throughout. PSYCH - A&Ox3 and cooperates fully with examiner. Pt is very pleasant and interacts well with examiner. Laboratory Results Last 24 Hours Test 02/15/17 07:24 02/15/17 07:28 02/15/17 08:28 02/15/17 11:54 Bedside Glucose 175 mg/dl Sodium Level 140 mmol/L Potassium Level 4.4 mmol/L Chloride Level 108 mmol/L Carbon Dioxide Level 26 mmol/L Anion Gap 6.0 mmol/L Blood Urea Nitrogen 30 mg/dl Creatinine 1.50 mg/dl Est Creatinine Clear Calc Drug Dose 36.3 ml/min Estimated GFR () 40.5 Estimated GFR (Non- 34.9 BUN/Creatinine Ratio 20.3 Random Glucose 137 mg/dl Calcium Level 9.5 mg/dl White Blood Count 5.32 K/uL 6.00 K/uL Red Blood Count 3.77 M/uL 3.78 M/uL Hemoglobin 11.6 g/dL 11.7 g/dL Hematocrit 35.4 % 35.3 % Mean Corpuscular Volume 93.9 fL 93.4 fL Mean Corpuscular Hemoglobin 30.8 pg 31.0 pg Mean Corpuscular Hemoglobin Concent 32.8 g/dl 33.1 g/dl Platelet Count 164 K/uL 148 K/uL Mean Platelet Volume 10.5 fL 10.9 fL Neutrophils (%) (Auto) 54.2 % 73.8 % Lymphocytes (%) (Auto) 32.1 % 20.8 % Monocytes (%) (Auto) 8.6 % 2.8 % Eosinophils (%) (Auto) 4.7 % 2.3 % Basophils (%) (Auto) 0.0 % 0.0 % Neutrophils # (Auto) 2.88 K/uL 4.42 K/uL Lymphocytes # (Auto) 1.71 K/uL 1.25 K/uL Monocytes # (Auto) 0.46 K/uL 0.17 K/uL Eosinophils # (Auto) 0.25 K/uL 0.14 K/uL Basophils # (Auto) 0.00 K/uL 0.00 K/uL RDW Standard Deviation 44.9 fL 44.8 fL RDW Coefficient of Variation 13.2 % 13.1 % Immature Granulocyte % (Auto) 0.4 % 0.3 % Immature Granulocyte # (Auto) 0.02 K/uL 0.02 K/uL Activated Partial Thromboplast Time 121.1 SECONDS Partial Thromboplastin Ratio 4.7 Fibrinogen 332 mg/dl Test 02/15/17 12:41 Bedside Glucose 115 mg/dl Assessment & Plan Reason Critically Ill: 71-year-old female with significant peripheral arterial disease with multiple interventions who is status post RIGHT lower extremity angiogram with mechanical atherectomy with catheter directed TPA to the RLE. Neuro - * CAM ICU: NEGATIVE. * Pain s/p Surgery: Morphine as needed. * Neuro check per nursing protocol in the setting of catheter directed TPA. Cardiac - * History of Hypertension and CAD: * Continue home Rx. * Monitor on Telemetry. * EKGs for any chest pain. Respiratory - * History of asthma. * Monitor for any s/s. Would recommend rescue inhaler as needed. * Continue to monitor pulse oximetry. GI - * History of GERD. Meds as needed. RENAL/LYTES - * Monitor daily lytes - replace appropriately. - * Lassiter Catheter. * Remove when able to ambulate. ENDO - * DM: * Requires insulin at home. * ISS at this point. * Insulin gtt w/ BSGs >249. * Hypothyroidism: * Continue Levothyroxine. HEME - * Stable H&H in the outpatient setting. * Will monitor. * Catheter Directed TPA to the RIGHT Lower Extremity: * Will monitor closely for any bleeding. ID - * No concern for infection at this time. * Monitor fever curve. LINES/IV ACCESS - * PIVs. * LEFT Femoral Cath - TPA. DVT PROPHYLAXIS - * Currently receiving catheter directed TPA. * Received Heparin bolus in surgery. * Defer to attending surgeon. Thank you for this consultation allow us to be part of this patient's care. Please refer to my attending physician's documentation for any further recommendations. Assessment and Plan Asked to be aware of patient's status in the ICU. Undergoing TPN infusion secondary to worsening vascular status. I spoke with vascular surgery and anesthesia about the case. She is doing ok. No cardiopulmonary concerns. No GI/ concerns. She is tolerating Rx well. Right leg pain is about the same at the time of my interview PMHx-- -PVD -CREST -Asthma -CKD PE: HEENT--sclera pale Pulmonary--exchange is good Cardio--rate and volume ok GI--functional and nontender Neuro--no focal changes Musculo/vascular--right LE warm Imp/Rec:--Will track patient status while in the ICU. Patient is stable from cardiopulmonary standpoint.
[2017-02-15] MEDS ORDERED: HYDROCORTISONE SOD SUCCINATE 100 MG/2 ML VIAL IV STA (15:33)
[2017-02-15] MEDS ORDERED: LIDOCAINE HCL 1% 20 ML VIAL INFIL ONE (15:34)
[2017-02-15] MEDS ORDERED: IODIXANOL (VISIPAQUE) 270 MG/ML 50ML IV ONE (15:34)
--- NOTE | 2017-02-15 15:40 | [facility] Post Operative Brief Note ---
Immediate Operative Summary Operative Date Feb 15, 2017. Pre-Operative Diagnosis Ischemic Right Leg TPA Infusion Post-Operative Diagnosis Same Procedure(s) Performed Recheck of TPA infusion and completion Mechanical Closure of Left Femoral Artery Surgeon Lyndsay Manager Employment Surgeon(s) None Estimated Blood Loss 2 Findings patent peroneal to distal leg, reconstitution of ant tib mid calf to dp Specimens None Anesthesia Local Complication(s) None Disposition Surgical ICU
[2017-02-15] MEDS ORDERED: OXYCODONE/ACETAMINOPHEN 5-325 TAB PO PRN (15:45)
[2017-02-15] MEDS ORDERED: LACTATED RINGER'S 1000ML 1,000 ML IV SCH (15:45)
[2017-02-15] MEDS ORDERED: CLOPIDOGREL BISULFATE 300 MG TAB PO STA (15:50)
[2017-02-15] MEDS ORDERED: METH4PAK PO (15:51)
--- NOTE | 2017-02-15 15:53 | Discharge Instructions ---
Discharge Instructions Date of Service Feb 15, 2017. Visit Reason for Visit: Right Superficial Femoral Artery & Popliteal Occlu Discharge Discharge Diagnosis / Problem: Ischemic right foot with popliteal artery and infrapopliteal artery occlusi Discharge Goals Goal(s): Therapeutic intervention Activity Recommendations Activity Limitations: per Instructions/Follow-up section Anesthesia . Post Anesthesia Instructions: If you have had General Anesthesia or IV Sedation: * Do not drive today. * Resume driving when surgeon permits. * Do not make important decisions or sign legal documents today. * Call surgeon for: 1. Temperature elevations greater than 101 degrees F. 2. Uncontrollable pain. 3. Excessive bleeding. 4. Persistent nausea and vomiting. 5. Medication intolerance (nausea, vomiting or rash). * For nausea and vomiting use only clear liquids such as: tea, soda, bouillon until nausea subsides, then gradually increase diet as tolerated. * If you have any concerns or questions, call your surgeon's office. If physician is unavailable and it is an emergency, call 911 or go to the nearest emergency room. . Instructions / Follow-Up Instructions / Follow-Up Call [phone] to schedule a follow up appointment if one not already scheduled. SPECIAL CARE INSTRUCTIONS: Medications: * Continue to take your medications as directed. If you have been given a prescription for Plavix, please fill it immediately and take as directed. Incision Care: * Your puncture site may have some bruising and minor swelling for about one week. * You will have a small dressing covering your puncture site. You may remove the dressing after 24 hours and shower. You may let the warm soapy water run over it, but be sure to dry the puncture site well and keep it dry. * DO NOT IMMERSE THE INCISION IN A TUB/POOL/etc. UNTIL HEALED. * Puncture sites should be kept covered with a band-aid until it begins to heal. Restrictions: * Depending on whether you leg or arm was punctured to access the arteries, you will be required to lay flat, hold your arm still, or both, for about 4 hours after the procedure to prevent bleeding. * Limit your activity for the first 48 hours. You may walk and go up and down steps. Avoid excessive bending or movement at the puncture site. Possible Complications: * Excessive Swelling - after blood flow is improved you may notice increased swelling in the lower legs. This is a normal response. This usually depends on the amount of blockages in the leg, how long they have been there prior to your procedure and how much blood flow was restored. Elevating your legs will help to improve this. Please notify our office ([phone] ) if the swelling does not go away after lying in bed overnight. * Infection/Drainage/Bleeding - Drainage or bleeding from the puncture site should be minimal. If you have excessive bleeding or drainage, call our office ([phone]) right away. * Pain - You may experience some mild pain or soreness at your puncture site. If your pain does not improve, please contact our office ([phone]). Call your doctor and seek emergent treatment if you develop: * Temperature above 101 degrees * Any fever or chills * Any redness or purulent drainage from the puncture site * Any new dusky/blue colored toes or feet with coolness or sharp or aching pain. SKIN IRRITATION: * You may experience some redness and/or swelling in the area where radiation was administered. If any skin irritation occurs, please contact your family physician. FOLLOW UP VISIT: Keep any scheduled doctor appointments. Diet Recommendations Recommended Home Diet: resume previous diet Procedures Procedures Performed: Mechanical atherectomy right popliteal artery, SOCIAL WORK MSW of right popliteal artery, TPA infusion right infrapopliteal arteries Recheck of TPA infusion and completion Mechanical Closure of Left Femoral Artery Pending Studies Studies pending at discharge: no Medical Emergencies . Who to Call and When: Medical Emergencies: If at any time you feel your situation is an emergency, please call 911 immediately. . Non-Emergent Contact Non-Emergency issues call your: Surgeon . . "Provider Documentation" section prepared by Wesley Umana. .
[2017-02-15] MEDS ORDERED: INSULIN HUMAN REGULAR SC SCH (16:00)
[2017-02-15] MEDS ORDERED: CARVEDILOL 12.5 MG TAB PO SCH (21:00)
[2017-02-15] MEDS ORDERED: SPIRONOLACTONE 25 MG TAB PO SCH (21:00)
[2017-02-16] MEDS ORDERED: LEVOTHYROXINE 112 MCG TAB PO SCH (06:00)
[2017-02-16] MEDS ORDERED: PANTOprazole SOD 40 MG TAB PO SCH (09:00)
[2017-02-16] MEDS ORDERED: ATORVASTATIN 40 MG TAB PO SCH (09:00)
[2017-02-16] MEDS ORDERED: FUROSEMIDE 20 MG TAB PO SCH (09:00)
[2017-02-16] MEDS ORDERED: LOSARTAN POTASSIUM 50 MG TAB PO SCH (09:00)
[2017-02-16] MEDS ORDERED: NIFEdipine 30 MG CR TAB PO SCH (09:00)
[2017-02-16] MEDS ORDERED: HYDROCHLOROTHIAZIDE 25 MG TAB PO SCH (09:00)
[2017-02-16] MEDS ORDERED: CHOLECALCIFEROL 1000 INTER.UNIT TAB PO SCH (09:00)
[2017-02-16] MEDS ORDERED: CLOPIDOGREL BISULFATE 75 MG TAB PO SCH (09:00)
--- NOTE | 2017-02-22 15:48 | DISCHARGE SUMMARY ---
ADMISSION DIAGNOSIS: Right lower extremity ischemia and rest pain. DISCHARGE DIAGNOSES: 1. Status post right lower extremity angiography with mechanical atherectomy of the right popliteal and percutaneous angioplasty of the right popliteal as well as thrombolysis via a TPA infusion. 2. Severe ischemia of the right lower extremity with rest pain. DISCHARGE CONDITION: Stable. CONSULTATIONS IN THE HOSPITAL: Included critical care during her short ICU stay. PROCEDURES IN THE HOSPITAL: Included her right lower extremity angiography with mechanical atherectomy and OUTPATIENT COORDINATOR of the right popliteal artery. An insertion of an infusion catheter for thrombolysis. Few hours later, she underwent a recheck of her TPA infusion and completion study. HISTORY OF PRESENT ILLNESS: Mrs. Almaraz is a 71-year-old female with a history of significant peripheral arterial disease, having undergone carotid endarterectomy and left lower extremity fem-pop bypass in the past, who is followed by Dr. Umana for her peripheral arterial disease. She called the office, stating that she had significant discomfort in her right lower extremity about 2-3 weeks prior, which worsened 1-2 days prior to calling the office. She underwent an ultrasound evaluation which demonstrated an ARABELLA of 0.2 and a near complete occlusion of her lower extremity distal arteries. At that point, she was recommended to come to the hospital to undergo urgent revascularization. HOSPITAL COURSE: The patient was admitted on 02/15/2017 after undergoing her initial procedure of right leg angiography and mechanical atherectomy and OUTPATIENT COORDINATOR of the popliteal artery. She had the infusion catheter for thrombolysis inserted at the time and was admitted for the infusion. She was monitored closely in the ICU and remained essentially stable. She then underwent a recheck of the right lower extremity after the TPA infusion, which demonstrated patent distal artery. Her discomfort in her right foot was relieved and as she continued to do well perioperatively, she was felt to be stable enough for discharge. PHYSICAL EXAMINATION: VITAL SIGNS: On day of discharge, her vital signs were as follows: Pulse 75, respiratory rate of 19, blood pressure of 175/89 with pulse oximetry of 93% on room air. CONSTITUTIONAL AND GENERAL: The patient is a chronically ill appearing elderly female in no acute distress. She ambulated without assistance and was active, alert and oriented x4. HEAD: Normocephalic and atraumatic. EYES: EOMI. ENMT: Exam demonstrated no rhinorrhea or erythema. NECK: Supple, nontender with midline trachea. HEART: Demonstrates a regular rate and rhythm. LUNGS: Decreased somewhat but clear. ABDOMEN: Soft, nontender with normoactive bowel sounds in all 4 quadrants. EXTREMITIES: Right lower extremity puncture site had the dressing in place. There was no sign of large hematoma. Her left groin puncture site also did well. Her left lower extremity distal pulses were +1 brisk capillary refill. Her right foot demonstrated dopplerable distal pulses. Her foot was warm and pink with brisk capillary refill to the toes. There was no sign of distal ischemia at the time. Bilateral upper extremities demonstrate no cyanosis, edema, clubbing, varicosities or ulcers. Bilateral lower extremities demonstrate no cyanosis, edema, clubbing, varicosities or ulcers. NEUROLOGIC: She had grossly intact cranial nerves and grossly intact sensation. DIET UPON DISCHARGE: Should be a low-cholesterol AHA diet. MEDICATIONS: Reconciled on the chart and are as per her discharge instructions. FOLLOWUP: Should be with Dr. Umana or his PA Marzena Pastor, within 2 weeks for reevaluation. She is advised to call the office with any other questions.
== END 2017-02-15 19:20 | disposition home or self-care (01) | DRG 272 ==
LOC: C.ACU 06:56 → C.MSICU 11:38
PROVIDERS: ADMIT Surgery Vascular Surgery; ATTEND Surgery Vascular Surgery
PROC: 3E05317 Introduction of Other Thrombolytic into Peripheral Artery, Percutaneous Approach (ICD-10-PCS; principal; 2017-02-15 09:45)
PROC: 04CM3ZZ Extirpation of Matter from Right Popliteal Artery, Percutaneous Approach (ICD-10-PCS; principal; 2017-02-15 09:45)
PROC: 047M3ZZ Dilation of Right Popliteal Artery, Percutaneous Approach (ICD-10-PCS; principal; 2017-02-15 09:45)
DX: I70.221 Atherosclerosis of native arteries of extremities with rest pain, right leg (principal); I25.10 Atherosclerotic heart disease of native coronary artery without angina pectoris; I65.29 Occlusion and stenosis of unspecified carotid artery; M34.1 CR(E)ST syndrome; I12.9 Hypertensive chronic kidney disease with stage 1 through stage 4 chronic kidney disease, or unspecified chronic kidney disease; E11.42 Type 2 diabetes mellitus with diabetic polyneuropathy; E11.22 Type 2 diabetes mellitus with diabetic chronic kidney disease; N18.9 Chronic kidney disease, unspecified; D64.9 Anemia, unspecified; J45.909 Unspecified asthma, uncomplicated; K21.9 Gastro-esophageal reflux disease without esophagitis; E78.5 Hyperlipidemia, unspecified; E03.9 Hypothyroidism, unspecified; Z95.820 Peripheral vascular angioplasty status with implants and grafts; Z90.5 Acquired absence of kidney; Z79.02 Long term (current) use of antithrombotics/antiplatelets; Z79.51 Long term (current) use of inhaled steroids; Z79.4 Long term (current) use of insulin; Z79.899 Other long term (current) drug therapy

== ENCOUNTER → 2017-03-12 | Outpatient (CLI) | payer OTHER, MEDICARE ==
[~2017-03-12] MED LIST changes: -ALL60; -AMLO-110; -ASPEC325; +ATOR-26 PO; +CARV12.52 PO; +CHOL1000 PO; +CLOP1TAB15 PO; -CRDCD180; -EZET10TA38; -HYDC25; +HYDR25TA4 PO; +INSU1INJ SC; -INSUINJ; -INSUINJ17; +LVMI; -MAGN400T6; -NIAC1TAB59; +NIFE30TA83 PO; -POTASSIUM; +PRLSR20 PO; +SPIR25TA PO
[2017-03-12 13:14] LABS: ESTIMATED AVERAGE GLUCOSE 192 mg/dl; HA1C FLAG Normal (Normal)
[2017-03-12 13:59] LABS: ALT/SGPT 28 U/L (12-78); AST/SGOT 19 U/L (15-37); BLOOD UREA NITROGEN 22 mg/dl (7-18); BUN/CREATININE RATIO 18.7 (10-20); CALCIUM 8.9 mg/dl (8.5-10.1); CARBON DIOXIDE 25 mmol/L (21-32); CHLORIDE 109 mmol/L (98-107); GLUCOSE 82 mg/dl (70-99); SODIUM 141 mmol/L (136-145)
[2017-03-12 14:10] LABS: CHOLESTEROL 152 mg/dl (0-200); CHOLESTEROL/HDL RATIO 3.5; HDL CHOLESTEROL 44 mg/dl; LDL CHOLESTEROL CALCULATED 77 mg/dl; PHOSPHORUS 3.5 mg/dl (2.5-4.9); THYROID STIMULATING HORMONE 0.058 uIu/ml (0.300-4.500); TRIGLYCERIDES 153 mg/dl (0-150); VERY LOW DENSITY LIPOPROT CALC 31 mg/dl
== END | disposition home or self-care (01) ==
LOC: C.LABMFLN 09:13
PROVIDERS: ATTEND Internal Medicine Nephrology
DX: I12.9 Hypertensive chronic kidney disease with stage 1 through stage 4 chronic kidney disease, or unspecified chronic kidney disease (principal); E03.9 Hypothyroidism, unspecified; E10.22 Type 1 diabetes mellitus with diabetic chronic kidney disease; N18.3 Chronic kidney disease, stage 3 (moderate)

== ENCOUNTER → 2017-04-16 | Outpatient (CLI) | payer OTHER, MEDICARE ==
[~2017-04-16] MED LIST changes: +DOXY100C76 PO
--- NOTE | 2017-04-16 16:27 | DIAGNOSTIC IMAGING REPORT ---
R FOOT MIN 3 VIEWS ROUTINE CLINICAL HISTORY: 71 years-old Female presenting with NON-HEALING WOUND. TECHNIQUE: Frontal, oblique, and lateral views of the right foot were obtained. COMPARISON: None. FINDINGS: Heterogeneity of bone marrow in the mid tarsus primarily involving the navicular and cuneiforms. Osteophytosis is suggested along the medial aspect of the midfoot. Overall osteopenia noted. No acute fracture or malalignment. A focal site of the reported nonhealing wound is suggested over the lateral aspect of the foot at the level of the fifth metatarsophalangeal joint. No subjacent osseous dissolution or periosteal reaction to suggest osteomyelitis. IMPRESSION: 1. No radiographic findings of osteomyelitis subjacent to the nonhealing ulceration over the fifth metatarsophalangeal joint. If there is continuing clinical concern, noncontrast MR could be obtained. 2. Severe degenerative change in the medial midfoot. Electronically signed by: Gustavo Macedo M.D. 04/16/2017 4:26 PM Dictated Date/Time: 04/16/2017 4:23 PM
== END | disposition home or self-care (01) ==
LOC: C.RAD 15:47
PROVIDERS: ATTEND Emergency Medicine
DX: S91.301A Unspecified open wound, right foot, initial encounter (principal); X58.XXXA Exposure to other specified factors, initial encounter; M19.071 Primary osteoarthritis, right ankle and foot

== ENCOUNTER → 2017-04-22 | Outpatient (CLI) | payer OTHER, MEDICARE ==
--- NOTE | 2017-04-22 21:03 | DIAGNOSTIC IMAGING REPORT ---
R LOWER EXT NONJOINT W/O CLINICAL HISTORY: R LATERAL FT NON HEALING WOUND infection TECHNIQUE: Multiaxial MRI acquisition COMPARISON STUDY: Routine right foot 04/16/2017 FINDINGS: Moderate generalized soft tissue edema and/or cellulitis involving the mid to distal aspect of the foot. This is seen primarily laterally. Bony mineralization is somewhat heterogeneous throughout. This primarily is a degenerative configuration. A significant component of bone marrow marrow replacement at the lateral point of ulceration is at not felt to be present. There is no evidence for drainable abscess or collection. There are diffuse degenerative changes of the metatarsophalangeal joints as well as intertarsal and tarsometatarsal joints. All findings again are felt to be primarily degenerative. No well-defined bony erosive changes appreciated. All major ligamentous and tendinous structures appear to be intact. IMPRESSION: 1. Generalized degenerative change 2. Mild generalized mid and lateral foot cellulitis. 3. No evidence for osteomyelitis based on the current exam. 4. No evidence for abscess or drainable collection. The above report was generated using voice recognition software. It may contain grammatical, syntax or spelling errors. Electronically signed by: Hussain Wing M.D. 04/22/2017 9:02 PM Dictated Date/Time: 04/22/2017 8:59 PM
== END | disposition home or self-care (01) ==
LOC: C.MRI 19:34
PROVIDERS: ATTEND Emergency Medicine
DX: S91.301A Unspecified open wound, right foot, initial encounter (principal); X58.XXXA Exposure to other specified factors, initial encounter; M19.071 Primary osteoarthritis, right ankle and foot

== ENCOUNTER → 2017-04-23 | Outpatient (CLI) | payer OTHER, MEDICARE ==
--- NOTE | 2017-04-23 15:43 | DIAGNOSTIC IMAGING REPORT ---
RIGHT LOWER EXTREMITY ARTERIAL DOPPLER STUDY CLINICAL HISTORY: RT LEG NON HEALING WOUND EXPOSED BONE COMPARISON STUDY: None. FINDINGS: The right ankle-brachial index was unable to be obtained. However, the right digit waveforms are diffusely dampened consistent with peripheral arterial disease. The left ankle-brachial measure with the posterior tibial artery was 0.62 and the dorsalis pedis artery was 0.80. Calcified plaque within the right common femoral artery with a peak systolic velocity of 198 cm/s. There are areas of 50-70% stenosis within the right common femoral artery on the provided images. There are triphasic waveforms but elevated peak systolic velocities within the proximal superficial femoral artery measuring 256 cm/s. This is consistent with an area of stenosis. Normal velocity monophasic waveform seen within the proximal and mid popliteal artery. The distal posterior artery is now well-visualized due to the calcified plaque. There are monophasic normal to low velocity waveforms seen within the posterior tibial, anterior tibial, peroneal, and dorsalis pedis arteries. IMPRESSION: 1. There are areas of hemodynamically significant stenosis seen within the common femoral artery and proximal superficial femoral artery. 2. The distal popliteal artery is not well visualized due to the calcified plaque but likely represents an additional area of stenosis. This likely accounts for the monophasic waveforms throughout the right calf vessels. Electronically signed by: Severiano Brown M.D. 04/23/2017 3:41 PM Dictated Date/Time: 04/23/2017 3:33 PM
== END | disposition home or self-care (01) ==
LOC: C.ULTR 12:58
PROVIDERS: ATTEND Emergency Medicine
DX: S91.301A Unspecified open wound, right foot, initial encounter (principal); X58.XXXA Exposure to other specified factors, initial encounter; I70.335 Atherosclerosis of unspecified type of bypass graft(s) of the right leg with ulceration of other part of foot

== ENCOUNTER → 2017-04-29 | Outpatient (CLI) | payer OTHER, MEDICARE ==
[2017-04-29 16:32] LABS: COMPLETE YES; EOS % 0.9 %; HEMATOCRIT 34.1 % (37-47); IG% 0.3 %; LYMPH ABS # 1.72 K/uL (1.2-3.4); MEAN CELL VOLUME 93.4 fL (80-100); MEAN CORPUSCULAR HEMOGLOBIN 31.5 pg (25-34); MEAN CORPUSCULAR HGB CONC 33.7 g/dl (32-36); MEAN PLATELET VOLUME 11.6 fL (7.4-10.4); MONO % 5.8 %; PLATELET COUNT 218 K/uL (130-400); RED BLOOD COUNT 3.65 M/uL (4.2-5.4); WHITE BLOOD COUNT 11.44 K/uL (4.8-10.8)
[2017-04-29 16:40] LABS: INR 1.1 (0.9-1.1); PARTIAL THROMBOPLASTIN RATIO 1.2; PROTHROMBIN TIME (PATIENT) 11.5 SECONDS (9.0-12.0)
[2017-04-29 16:57] LABS: BLOOD UREA NITROGEN 26 mg/dl (7-18); BUN/CREATININE RATIO 17.6 (10-20); CALCIUM 9.1 mg/dl (8.5-10.1); CARBON DIOXIDE 25 mmol/L (21-32); CHLORIDE 102 mmol/L (98-107); CREATININE 1.45 mg/dl (0.60-1.20); GLUCOSE 122 mg/dl (70-99); POTASSIUM 4.2 mmol/L (3.5-5.1); SODIUM 136 mmol/L (136-145)
== END | disposition home or self-care (01) ==
LOC: C.CPL 15:07
PROVIDERS: ATTEND Surgery Vascular Surgery
DX: Z01.810 Encounter for preprocedural cardiovascular examination (principal); Z01.812 Encounter for preprocedural laboratory examination; E03.9 Hypothyroidism, unspecified

== ENCOUNTER 2017-06-14 07:20 | Day surgery (SDC) | payer OTHER, MEDICARE ==
[2017-06-13 15:40] VITALS: BMI 28.0
[~2017-06-14] VITALS: Ht 162.6 cm; Wt 75.0 kg
[2017-06-14] VITALS (7 sets, daily range): BP systolic 147–168; BP diastolic 63–74; PULSE 68–79; TEMP 36.6–36.8; O2SAT 96–99; Ht 162.6 cm; Wt 75.0 kg
--- NOTE | 2017-06-14 05:59 | History and Physical ---
History & Physical Date of Service Jun 14, 2017. History & Physical Chief Complaint RLE PAD with gangrene plantar aspect of right foot History of Present Illness The patient is a 71 year old female with hx of scleroderma, HTN, DMII on insulin , hx of L CEA and LLE fem-pop bypass in remote past, who underwent limb salvage intervention in Feb. She developed a gangrenous ulcer on the plantar aspect of her right foot and underwent an open 5th toe amputation. The amputation site is now nonhealing and has gangrenous changes. 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 Pt denies QUINTERO , fever, chills, chest pain, SOB, abd pain, N/V, other ulcerations. Home Medications Scheduled Atorvastatin (Lipitor), 80 MG PO DAILY Carvedilol (Coreg), 1 TAB PO BID Cholecalciferol (Vitamin D3), 1 TAB PO DAILY Clopidogrel (Plavix), 75 MG PO DAILY Hydrochlorothiazide (Hctz), 1 TAB PO DAILY Omeprazole (Prilosec), 20 MG PO DAILY Spironolactone (Aldactone), 25 MG PO BID Miscellaneous Medications Albuterol (Ventolin) Fluticasone Prop/Salmeterol (Advair Diskus 500/50 Mcg *) Furosemide (Lasix *) Insulin Detemir (Levemir), 32 Insulin Isophan/Regular (Humulin 70/30), 0 SC Levothyroxine (Synthroid *) Losartan Potassium (Cozaar *) Nifedipine Ext Rel (Procardia Xl Ext Rel), 30 MG PO Allergies: eflurane alejo inhibitors contrast Surgical / Medical History Past Medical/Surgical History: Diabetes, Hypertension Family History + DMII, HTN Social History Smoking Status: Never Smoker Review of Systems Constitutional: No chills, No fever, No malaise Skin: No change in color Eyes: No visual changes ENMT: No sore throat Respiratory: No cough, No PRATHER Cardiovascular: + intermittent claudication, No chest pain, No edema Gastrointestinal: No abdominal pain, No nausea, No vomiting Genitourinary - Female: No dysuria, No hematuria Neurologic: No dizziness, No headache, No numbness, No tingling Physical Exam Constitutional: General Apperance: heathly-appearing, well-nourished, well-developed Level of Distress: NAD Psychiatric: Mental Status: active & alert, normal mood, normal affect Orientation: oriented except where noted, to time, to place, to person Memory: recent memory normal, remote memory normal Head: normocephalic, atraumatic Eyes: EOM: EOMI ENMT: normal ENT inspection, hearing grossly normal Neck: supple, trachea midline Lungs: Respiratory effort: no dyspnea Auscultation: no rales/crackles, no rhonchi, decreased breath sounds Cardiovascular: Apical Impulse: not displaced Heart Auscultation: RRR, no rubs, no gallops Peripheral Pulses: Pulses: full and equal, in all extremities except if noted Bruits: none appreciated Carotid Pulse: normal on the left, normal on the right Brachial Pulses: normal on the left, normal on the right Radial Pulse: normal on the left, normal on the right Femoral Pulse: normal on the left, normal on the right Posterior Tibialis Pulse: decreased on the left, absent on the right Dorsalis Pedis Pulse: decreased on the left, absent on the right Abdomen: Bowel Sounds: normal Inspection & Palpation: soft, non-distended, no tenderness, guarding & rebound Musculoskeletal: normal strength (5/5 throughout), normal tone Extremities: Upper Right: no cyanosis, no edema, no varicosities Upper Left: no cyanosis, no edema, no varicosities Lower Right: no cyanosis, no edema, no varicosities, gangrenous ulcer plantar aspect of foot Lower Left: no cyanosis, no edema, no varicosities Neurologic: Cranial Nerves: grossly intact Assessment and Plan ASSESSMENT: Severe PAD with nonhealing and gangrenous amputation site of the right foot Plan: Patient is admitted for arteriography with possible intervention. I have discussed the risks options and benefits of the procedure with the patient. The patient understands the risks options and benefits and agrees to the procedure.
[~2017-06-14 07:20] MED LIST changes: +ADVIN25/60 INH; -ADVIN50050; -ALBUAER2; +ALBUTEROL; +AMOX1TAB42 PO; +CIMETIDINE 300 MG TAB PO SCH; +CIPR1TAB11 PO; -CZR50; -DOXY100C76 PO; +INSU100I SC; -INSU1INJ SC; +LACTATED RINGER'S 1000ML 1,000 ML IV SCH; +LEVO112T4 PO; +LOSA1TAB38 PO; -LSX20; -LVMI; +LVMI SC; +MISCCAP80 PO; +OXYC-57 PO; +PRED50TA PO; +SODIUM CHLORIDE 0.9% 1000ML IV SCH; -SYN112; +VNTHFA/IN INH
[2017-06-14 08:00] LABS: HEMATOCRIT 32.8 % (37-47); HEMOGLOBIN 11.1 g/dL (12.0-16.0); MEAN CELL VOLUME 90.4 fL (80-100); MEAN CORPUSCULAR HEMOGLOBIN 30.6 pg (25-34); MEAN PLATELET VOLUME 10.9 fL (7.4-10.4); PLATELET COUNT 258 K/uL (130-400); RED CELL DISTRIBUTION WIDTH CV 13.4 % (11.5-14.5); RED CELL DISTRIBUTION WIDTH SD 44.5 fL (36.4-46.3); WHITE BLOOD COUNT 14.67 K/uL (4.8-10.8)
[2017-06-14] MEDS ORDERED: ATROPINE SULFATE 0.1 MG/ML 5ML SYR IV PRN (08:15)
[2017-06-14] MEDS ORDERED: PHENYLEPHRINE 100MCG/ML 5ML SYR IV PRN (08:15)
[2017-06-14] MEDS ORDERED: EpHEDrine SULFATE INJ 50 MG/ML AMP IV PRN (08:15)
[2017-06-14] MEDS ORDERED: MEPERIDINE HCL 25 MG/ML CARP IV PRN (08:15)
[2017-06-14] MEDS ORDERED: NALOXONE HCL 0.4 MG/1 ML VIAL/CARP IV PRN (08:15)
[2017-06-14] MEDS ORDERED: FENTANYL CITRATE INJ 50 MCG/1 ML 2 ML VIAL IV PRN (08:15)
[2017-06-14] MEDS ORDERED: LABETALOL HCL IV 5 MG/ML 20ML IV PRN (08:15)
[2017-06-14] MEDS ORDERED: HYDROmorphone INJ 2 MG/ML SYR/VIAL IV PRN (08:15)
[2017-06-14] MEDS ORDERED: ONDANSETRON INJ 2 MG/ML 2 ML VIAL IV PRN (08:15)
[2017-06-14] MEDS ORDERED: FLUMAZENIL 0.1 MG/1 ML 10 ML VIAL IV PRN (08:15)
[2017-06-14 08:21] LABS: CALCIUM 9.5 mg/dl (8.5-10.1); CREATININE 1.5 mg/dl (0.60-1.20); POTASSIUM 4.1 mmol/L (3.5-5.1)
[2017-06-14] MEDS ORDERED: NovoLIN-R INSULIN PER UNIT CHARGE ONE ×5 (08:24→10:42)
[2017-06-14] MEDS ORDERED: NURSING VERBAL MED ORDER ONE ×4 (08:30→10:45)
[2017-06-14 08:38] LABS: MEAN CORPUSCULAR HGB CONC 33.8 g/dl (32-36)
[2017-06-14] MEDS ORDERED: FENTANYL CITRATE INJ 50 MCG/1 ML 2 ML VIAL ONE ×2 (09:39→11:53)
[2017-06-14] MEDS ORDERED: MIDAZOLAM HCL 1 MG/ML 2ML VIAL ONE (09:39)
--- NOTE | 2017-06-14 10:35 | History & Physical Bridge Note ---
H&P Re-Evaluation Bridge Note: I have examined the patient, reviewed the History & Physical and in the interval since the performance of the History & Physical I have noted the following changes of clinical significance: No changes noted
[2017-06-14] MEDS: CEFAZOLIN 1000MG IV PUSH 5 ML IV SCH ×3 (10:56→11:14)
[2017-06-14] MEDS ORDERED: PROPOFOL IV EMULSION 10 MG/ML 20 ML VIAL IV ONE (11:05)
[2017-06-14] MEDS ORDERED: LIDOCAINE HCL 1% 20 ML VIAL INFIL ONE (11:11)
[2017-06-14] MEDS ORDERED: HEPARIN SOD (PORCINE) 1000 UNIT/ML 10 ML VIAL ONE (11:33)
[2017-06-14] MEDS ORDERED: OXYCODONE/ACETAMINOPHEN 5-325 TAB PO PRN (12:00)
--- NOTE | 2017-06-14 12:00 | [facility] Post Operative Brief Note ---
Immediate Operative Summary Operative Date Jun 14, 2017. Pre-Operative Diagnosis Severe PAD with nonhealing and gangrenous amputation site of the right foot Post-Operative Diagnosis Same Procedure(s) Performed Right Lower Extremity Angiogram Percutaneous Transluminal Angioplasty/Stent Right Popliteal Percutaneous Transluminal Angioplasty Peroneal Mechanical Closure of Left Femoral Artery. Surgeon Lyndsay Pai Gow Manager Surgeon(s) None Estimated Blood Loss 10 Findings steonsis of popliteal artery and peroneal origin Specimens None Anesthesia Local with sedation Complication(s) None Disposition
[2017-06-14] MEDS ORDERED: IODIXANOL (VISIPAQUE) 270 MG/ML 150ML XX ONE (12:03)
--- NOTE | 2017-06-14 12:04 | Discharge Instructions ---
Discharge Instructions Date of Service Jun 14, 2017. Visit Reason for Visit: Peripheral Arterial Disease Discharge Discharge Diagnosis / Problem: Gangrenous wound right foot Discharge Goals Goal(s): Therapeutic intervention Activity Recommendations Activity Limitations: per Instructions/Follow-up section Call [phone] to schedule a follow up appointment if one not already scheduled. SPECIAL CARE INSTRUCTIONS: Medications: * Continue to take your medications as directed. If you have been given a prescription for Plavix, please fill it immediately and take as directed. Incision Care: * Your puncture site may have some bruising and minor swelling for about one week. * You will have a small dressing covering your puncture site. You may remove the dressing after 24 hours and shower. You may let the warm soapy water run over it, but be sure to dry the puncture site well and keep it dry. * DO NOT IMMERSE THE INCISION IN A TUB/POOL/etc. UNTIL HEALED. * Puncture sites should be kept covered with a band-aid until it begins to heal. Restrictions: * Depending on whether you leg or arm was punctured to access the arteries, you will be required to lay flat, hold your arm still, or both, for about 4 hours after the procedure to prevent bleeding. * Limit your activity for the first 48 hours. You may walk and go up and down steps. Avoid excessive bending or movement at the puncture site. Possible Complications: * Excessive Swelling - after blood flow is improved you may notice increased swelling in the lower legs. This is a normal response. This usually depends on the amount of blockages in the leg, how long they have been there prior to your procedure and how much blood flow was restored. Elevating your legs will help to improve this. Please notify our office ([phone] ) if the swelling does not go away after lying in bed overnight. * Infection/Drainage/Bleeding - Drainage or bleeding from the puncture site should be minimal. If you have excessive bleeding or drainage, call our office ([phone]) right away. * Pain - You may experience some mild pain or soreness at your puncture site. If your pain does not improve, please contact our office ([phone]). Call your doctor and seek emergent treatment if you develop: * Temperature above 101 degrees * Any fever or chills * Any redness or purulent drainage from the puncture site * Any new dusky/blue colored toes or feet with coolness or sharp or aching pain. SKIN IRRITATION: * You may experience some redness and/or swelling in the area where radiation was administered. If any skin irritation occurs, please contact your family physician. FOLLOW UP VISIT: Keep any scheduled doctor appointments. Anesthesia . Post Anesthesia Instructions: If you have had General Anesthesia or IV Sedation: * Do not drive today. * Resume driving when surgeon permits. * Do not make important decisions or sign legal documents today. * Call surgeon for: 1. Temperature elevations greater than 101 degrees F. 2. Uncontrollable pain. 3. Excessive bleeding. 4. Persistent nausea and vomiting. 5. Medication intolerance (nausea, vomiting or rash). * For nausea and vomiting use only clear liquids such as: tea, soda, bouillon until nausea subsides, then gradually increase diet as tolerated. * If you have any concerns or questions, call your surgeon's office. If physician is unavailable and it is an emergency, call 911 or go to the nearest emergency room. . Diet Recommendations Recommended Home Diet: resume previous diet Procedures Procedures Performed: Right Lower Extremity Angiogram Percutaneous Transluminal Angioplasty/Stent Right Popliteal Percutaneous Transluminal Angioplasty Peroneal Mechanical Closure of Left Femoral Artery. Pending Studies Studies pending at discharge: no Medical Emergencies . Who to Call and When: Medical Emergencies: If at any time you feel your situation is an emergency, please call 911 immediately. . Non-Emergent Contact Non-Emergency issues call your: Surgeon . . "Provider Documentation" section prepared by Wesley Umana. .
--- NOTE | 2017-06-14 12:12 | [facility] Operative Report ---
Operative Report Operative Date Jun 14, 2017. Pre-Operative Diagnosis Severe PAD with nonhealing and gangrenous amputation site of the right foot Post-Operative Diagnosis Same Procedure(s) Performed Right Lower Extremity Angiogram Percutaneous Transluminal Angioplasty/Stent Right Popliteal Percutaneous Transluminal Angioplasty Peroneal Mechanical Closure of Left Femoral Artery. Surgeon Lyndsay Cracker Sprayer Surgeon(s) None Estimated Blood Loss 10 Findings stenosis of peroneal artery and popliteal artery Specimens None Anesthesia Local with sedation Complication(s) None Disposition Indications This is a 71-year-old female who had an open amputation of her right fifth toe. She is developed gangrene of the amputation site as well as the plantar surface of the foot. Duplex showed a popliteal artery stenoses. Arteriography with intervention was recommended. I have discussed the risks options and benefits of the procedure with the patient. The patient understands the risks options and benefits and agrees to the procedure. Description of Procedure The patient was taken to the angiogram suite and placed in the supine position. Local anesthetic was administered to the left groin after it was prepped and draped. A puncture was made a left common femoral artery and an 035 wire was passed centrally. A 5 Yemeni sheath was inserted over the wire. Using a rim catheter and an 035 wire the right iliac was cannulated from left side and the rim catheter passed down to the common femoral artery. Arteriography showed the common femoral artery and the distal external iliac to be widely patent. The profunda and superficial femoral arteries are patent. The superficial femoral artery was patent down to the popliteal artery where a severe stenosis was noted for an approximately 8 cm length. There was a short total occlusion of the peroneal artery origin. Anterior tibial and posterior tibial arteries were not seen. Next the stiffened 035 wire was insertied. This was passed down through the right side through the lesion into the peroneal artery. A 6 Yemeni destination sheath was then exchanged for a 5 Yemeni sheath over the stiffened Glidewire. A quickcross was inserted. This passed all the way down to the peroneal. Confirmation was done with hand injection which showed the quick cross to be in the peroneal artery and in the true lumen. At that point an 014 command wire was inserted and the quick cross was removed. Using a 3 x 120 balloon the peroneal artery was ballooned. without difficulty. Good results were seen. We then used a 6 x 100 balloon on the popliteal artery. An area of narrowing persisted in the mid popliteal. This area was stented with a 6 x 10 Vivatron Post stenting diliatation of the stent with a 6 x 100 balloon was done. Completion anginography showed excellent results with no residual stenosis in the popliteal and good flow down through the peroneal. The destination was pulled over to left side. Hand injection showed the puncture to be in the common femoral artery. An 035 wire was then inserted into the destination after the 014 was removed. The puncture site was then closed with a Star closure device without difficulty. Adequate hemostasis was noted. The wound was then dressed in a sterile manner. Patient left the Angio suite in good condition and tolerated the procedure well. I attest to the content of the Intraoperative Record and any orders documented therein. Any exceptions are noted below.
--- NOTE | 2017-06-14 12:17 | Anesthesiology Progress Note ---
Anesthesia Post Op Note Date & Time Jun 14, 2017 at 12:17 Vital Signs Pain Intensity: 1 Vital Signs Past 12 Hours Date Time Temp Pulse Resp B/P (MAP) Pulse Ox O2 Delivery O2 Flow Rate FiO2 06/14/17 08:36 36.8 68 20 147/68 (94) 98 Room Air Notes Mental Status: alert / awake / arousable, participated in evaluation Pt Amnestic to Procedure: Yes Nausea / Vomiting: adequately controlled Pain: adequately controlled Airway Patency, RR, SpO2: stable & adequate BP & HR: stable & adequate Hydration State: stable & adequate Anesthetic Complications: no major complications apparent The patient did well. She received preoperative insulin due to hyperglycemia. Her postop BSG was 136.
[2017-06-17] MEDS ORDERED: VNTHFA/IN INH (16:14)
[2017-06-17] MEDS ORDERED: SYMIN160 INH (16:16)
[2017-07-01] MEDS ORDERED: AMOX1TAB42 PO (14:50)
[2017-07-01] MEDS ORDERED: CIPR1TAB11 PO (14:50)
[2017-07-03] MEDS ORDERED: AMOX1TAB42 PO (09:54)
== END 2017-06-14 15:15 | disposition home or self-care (01) ==
LOC: C.ACU 07:20
PROVIDERS: ATTEND Surgery Vascular Surgery
DX: I70.261 Atherosclerosis of native arteries of extremities with gangrene, right leg (principal); L97.511 Non-pressure chronic ulcer of other part of right foot limited to breakdown of skin; I10 Essential (primary) hypertension; E11.9 Type 2 diabetes mellitus without complications; Z79.4 Long term (current) use of insulin; Z89.421 Acquired absence of other right toe(s); Z83.3 Family history of diabetes mellitus; Z82.49 Family history of ischemic heart disease and other diseases of the circulatory system; Z90.49 Acquired absence of other specified parts of digestive tract; J44.9 Chronic obstructive pulmonary disease, unspecified; I25.10 Atherosclerotic heart disease of native coronary artery without angina pectoris; K21.9 Gastro-esophageal reflux disease without esophagitis; E03.9 Hypothyroidism, unspecified; Z90.5 Acquired absence of kidney; Z85.528 Personal history of other malignant neoplasm of kidney; E66.9 Obesity, unspecified

== ENCOUNTER 2017-06-19 10:25 | Inpatient (IN) | payer OTHER, MEDICARE ==
[2017-06-17 16:17] VITALS: BMI 28.0
[~2017-06-19] VITALS: Ht 162.6 cm; Wt 75.0 kg
[2017-06-19] VITALS (8 sets, daily range): BP systolic 133–211; BP diastolic 58–81; PULSE 60–79; TEMP 36.4–37.1; O2SAT 94–99; BMI 28.0
--- NOTE | 2017-06-19 08:22 | History and Physical ---
History & Physical Date of Service Jun 19, 2017. History & Physical Chief Complaint RLE PAD with gangrene plantar aspect of right foot History of Present Illness The patient is a 71 year old female with hx of scleroderma, HTN, DMII on insulin , hx of L CEA and LLE fem-pop bypass in remote past, who underwent limb salvage intervention in Feb. She developed a gangrenous ulcer on the plantar aspect of her right foot and underwent an open 5th toe amputation. The amputation site is now nonhealing and has gangrenous changes. 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 She underwent endovascular intervention on these lesions last week with good results. Pt denies QUINTERO, fever, chills, chest pain, SOB, abd pain, N/V, other ulcerations. Home Medications Scheduled Atorvastatin (Lipitor), 80 MG PO DAILY Carvedilol (Coreg), 1 TAB PO BID Cholecalciferol (Vitamin D3), 1 TAB PO DAILY Clopidogrel (Plavix), 75 MG PO DAILY Hydrochlorothiazide (Hctz), 1 TAB PO DAILY Omeprazole (Prilosec), 20 MG PO DAILY Spironolactone (Aldactone), 25 MG PO BID Miscellaneous Medications Albuterol (Ventolin) Fluticasone Prop/Salmeterol (Advair Diskus 500/50 Mcg *) Furosemide (Lasix *) Insulin Detemir (Levemir), 32 Insulin Isophan/Regular (Humulin 70/30), 0 SC Levothyroxine (Synthroid *) Losartan Potassium (Cozaar *) Nifedipine Ext Rel (Procardia Xl Ext Rel), 30 MG PO Allergies: eflurane alejo inhibitors contrast Surgical / Medical History Past Medical/Surgical History: Diabetes, Hypertension Family History + DMII, HTN Social History Smoking Status: Never Smoker Review of Systems Constitutional: No chills, No fever, No malaise Skin: No change in color Eyes: No visual changes ENMT: No sore throat Respiratory: No cough, No PRATHER Cardiovascular: + intermittent claudication, No chest pain, No edema Gastrointestinal: No abdominal pain, No nausea, No vomiting Genitourinary - Female: No dysuria, No hematuria Neurologic: No dizziness, No headache, No numbness, No tingling Physical Exam Constitutional: General Apperance: heathly-appearing, well-nourished, well-developed Level of Distress: NAD Psychiatric: Mental Status: active & alert, normal mood, normal affect Orientation: oriented except where noted, to time, to place, to person Memory: recent memory normal, remote memory normal Head: normocephalic, atraumatic Eyes: EOM: EOMI ENMT: normal ENT inspection, hearing grossly normal Neck: supple, trachea midline Lungs: Respiratory effort: no dyspnea Auscultation: no rales/crackles, no rhonchi, decreased breath sounds Cardiovascular: Apical Impulse: not displaced Heart Auscultation: RRR, no rubs, no gallops Peripheral Pulses: Pulses: full and equal, in all extremities except if noted Bruits: none appreciated Carotid Pulse: normal on the left, normal on the right Brachial Pulses: normal on the left, normal on the right Radial Pulse: normal on the left, normal on the right Femoral Pulse: normal on the left, normal on the right Posterior Tibialis Pulse: decreased on the left, absent on the right Dorsalis Pedis Pulse: decreased on the left, absent on the right Abdomen: Bowel Sounds: normal Inspection & Palpation: soft, non-distended, no tenderness, guarding & rebound Musculoskeletal: normal strength (5/5 throughout), normal tone Extremities: Upper Right: no cyanosis, no edema, no varicosities Upper Left: no cyanosis, no edema, no varicosities Lower Right: no cyanosis, no edema, no varicosities, gangrenous ulcer plantar aspect of foot Lower Left: no cyanosis, no edema, no varicosities Neurologic: Cranial Nerves: grossly intact Assessment and Plan ASSESSMENT: Severe PAD with nonhealing and gangrenous amputation site of the right foot Plan: Patient is admitted for debridement of her right foot. I have discussed the risks options and benefits of the procedure with the patient. The patient understands the risks options and benefits and agrees to the procedure.
[~2017-06-19 10:25] MED LIST changes: -ADVIN25/60 INH; -ALBUTEROL; +CEFAZOLIN 1000MG IV PUSH 5 ML IV SCH; -CIMETIDINE 300 MG TAB PO SCH; -PRED50TA PO; +SYMIN160 INH
[2017-06-19] MEDS ORDERED: LIDOCAINE HCL 1% 20 ML VIAL ONE (12:12)
[2017-06-19] MEDS ORDERED: EpINEphrine HCL INJ 1 MG/ML 5ML SYRINGE ONE (12:14)
[2017-06-19] MEDS ORDERED: BUPIVACAINE 0.5 % 5 MG/1 ML MPF 30ML VIAL ONE (12:14)
[2017-06-19] MEDS ORDERED: FENTANYL CITRATE INJ 50 MCG/1 ML 2 ML VIAL ONE (12:40)
[2017-06-19] MEDS ORDERED: PROPOFOL IV EMULSION 10 MG/ML 20 ML VIAL IV ONE (12:40)
[2017-06-19] MEDS ORDERED: MIDAZOLAM HCL 1 MG/ML 2ML VIAL ONE (12:40)
[2017-06-19] MEDS ORDERED: SCOPOLAMINE 1.5 MG TDSY TD ONE (13:16)
[2017-06-19] MEDS ORDERED: ONDANSETRON INJ 2 MG/ML 2 ML VIAL ONE ×2 (13:40→13:57)
[2017-06-19] MEDS ORDERED: SUCCINYLCHOLINE 100MG/5ML SYR IV ONE (13:40)
[2017-06-19] MEDS ORDERED: ROCURONIUM BROMIDE 10 MG/ML 5 ML VIAL IV ONE (13:40)
[2017-06-19] MEDS ORDERED: EpHEDrine SULFATE INJ 50 MG/ML AMP ONE (13:46)
--- NOTE | 2017-06-19 14:01 | [facility] Post Operative Brief Note ---
Immediate Operative Summary Operative Date Jun 19, 2017. Pre-Operative Diagnosis Non Healing and Gangrenous Amputation Site of Right Foot Post-Operative Diagnosis Non Healing and Gangrenous Amputation Site of Right Foot Procedure(s) Performed Debridement Right Foot Wound; Transmetatarsal Amputation of Right Fourth Toe; Excision of Third Metatarsal and proximal phanlynx Surgeon Dr Umana Sign Letterer Surgeon(s) None Estimated Blood Loss 50CC Findings good bleeding tissue beneath Specimens A: Right Foot Tissue Anesthesia Gen Complication(s) None Disposition Recovery Room / PACU
[2017-06-19] MEDS ORDERED: ONDANSETRON INJ 2 MG/ML 2 ML VIAL IV PRN ×2 (14:15→15:00)
[2017-06-19] MEDS ORDERED: OXYCODONE/ACETAMINOPHEN 5-325 TAB PO PRN ×2 (14:15)
[2017-06-19] MEDS ORDERED: DEXTROSE 50% 50 ML SYR IV PRN (14:15)
[2017-06-19] MEDS ORDERED: GLUCOSE 40% GEL 15 GM TUBE PO PRN (14:15)
[2017-06-19] MEDS ORDERED: BUDESONIDE/FORMOTEROL FUMARATE 160/4.5 60 PUFFS/INHALER INH PRN (14:15)
[2017-06-19] MEDS ORDERED: MoRPHine SULFATE 2 MG/ML CARP IV PRN (14:15)
[2017-06-19] MEDS ORDERED: GLUCAGON FOR INJ 1 MG VIAL SQ PRN (14:15)
[2017-06-19] MEDS ORDERED: ALBUTEROL HFA 8 GM INHALER INH PRN (14:15)
[2017-06-19] MEDS ORDERED: GLUCOSE 10 TABS/TUBE PO PRN (14:15)
--- NOTE | 2017-06-19 14:50 | Anesthesiology Progress Note ---
Anesthesia Post Op Note Date & Time Jun 19, 2017 at 14:50 Vital Signs Pain Intensity: 0 Vital Signs Past 12 Hours Date Time Temp Pulse Resp B/P (MAP) Pulse Ox O2 Delivery O2 Flow Rate FiO2 06/19/17 14:40 66 14 168/71 98 Room Air 06/19/17 14:30 65 16 148/84 98 Room Air 06/19/17 14:20 65 18 172/73 100 Oxymask 8 06/19/17 14:14 36 66 16 172/69 100 Oxymask 8 06/19/17 11:02 37.1 62 20 153/58 (89) 98 Room Air Notes Mental Status: alert / awake / arousable, participated in evaluation Pt Amnestic to Procedure: Yes Nausea / Vomiting: adequately controlled Pain: adequately controlled Airway Patency, RR, SpO2: stable & adequate BP & HR: stable & adequate Hydration State: stable & adequate Anesthetic Complications: no major complications apparent
--- NOTE | 2017-06-19 14:59 | OPERATIVE REPORT ---
DATE OF OPERATION: 06/19/2017 PREOPERATIVE DIAGNOSIS: Nonhealing gangrenous amputation site, right foot. POSTOPERATIVE DIAGNOSIS: Same. PROCEDURE: Debridement of right foot wound of skin and subcutaneous tissue, transmetatarsal amputation right fourth toe and excision of third metatarsal head and proximal phalanx. SURGEON: Dr. Umana. ANESTHETIC: General endotracheal. PROCEDURE INDICATIONS: The patient is a 71-year-old female who had gangrene in her right foot and had amputation of fifth toe. The wound worsened to include the entire lateral aspect of the foot. This was from the metatarsal forward. She underwent endovascular revascularization and now is here for debridement of the foot. I also recommend that we take any exposed bone. She understood the risks, options and benefits and agreed to have this procedure. The patient was taken to the operating room and placed in supine position, general anesthesia was accomplished. The right foot was then prepped and draped in a sterile manner. An incision was made along the entire eschar that was present. The eschar was lifted up. There was good viable tissue beneath. The eschar was totally removed. The fourth digit was necrotic and gangrenous. We ended up taking the fourth toe along with the metatarsal bone. The third metatarsal head was exposed as well as the proximal portion of the proximal phalanx of the 3rd toe. The proximal phalanx of the third toe along with the metatarsal of the third toe were also removed. Good bleeding was seen. We then loosely approximated the wound so that we could eliminate the space in the deep parts of the wound. Sterile dressings were then applied. The patient left the operating room in satisfactory condition and tolerated the procedure well. I attest to the content of the Intraoperative Record and any orders documented therein. Any exception s are noted below.
[2017-06-19] MEDS ORDERED: FENTANYL CITRATE INJ 50 MCG/1 ML 2 ML VIAL IV PRN (15:00)
[2017-06-19] MEDS ORDERED: ATROPINE SULFATE 0.1 MG/ML 5ML SYR IV PRN (15:00)
[2017-06-19] MEDS ORDERED: EpHEDrine SULFATE INJ 50 MG/ML AMP IV PRN (15:00)
[2017-06-19] MEDS ORDERED: MoRPHine SULFATE 4 MG/ML 1 ML CARP\\VIAL IV PRN (16:00)
[2017-06-19] MEDS: INSULIN HUMAN REGULAR SC SCH ×2 (18:09→21:00)
[2017-06-19 18:40] LABS: INR 1.1 (0.9-1.1)
[2017-06-19 19:05] LABS: CREATININE 1.33 mg/dl (0.60-1.20)
[2017-06-19] MEDS ORDERED: NURSING VERBAL MED ORDER ONE (21:00)
[2017-06-19] MEDS ORDERED: LORAZEPAM 0.5 MG TAB PO PRN (21:15)
[2017-06-19] MEDS: PANTOprazole SOD 40 MG TAB PO SCH (21:48)
[2017-06-19] MEDS: CHOLECALCIFEROL 1000 INTER.UNIT TAB PO SCH (21:48)
[2017-06-19] MEDS: SPIRONOLACTONE 25 MG TAB PO SCH (21:49)
[2017-06-19] MEDS: NIFEdipine 30 MG CR TAB PO SCH (21:49)
[2017-06-19] MEDS: AMOXICILLIN/CLAVULANATE TAB 875 MG TAB PO SCH (21:49)
[2017-06-19] MEDS: ATORVASTATIN 40 MG TAB PO SCH (21:50)
[2017-06-19] MEDS: CIPROFLOXACIN 500 MG TAB PO SCH (21:50)
[2017-06-19] MEDS: CARVEDILOL 12.5 MG TAB PO SCH (21:51)
[2017-06-20 03:41] VITALS: BP 132/72; PULSE 58; TEMP 36.8; O2SAT 95
[2017-06-20] MEDS: LEVOTHYROXINE 112 MCG TAB PO SCH (05:38)
[2017-06-20 07:10] VITALS: BP 126/67; PULSE 61; TEMP 36.7; O2SAT 93
[2017-06-20 07:23] LABS: BASO % 0.1 %; BASO ABS # 0.01 K/uL (0-0.2); EOS % 1.6 %; EOS ABS # 0.12 K/uL (0-0.5); HEMATOCRIT 28.1 % (37-47); HEMOGLOBIN 9.2 g/dL (12.0-16.0); IG# 0.11 K/uL (0.00-0.02); LYMPH % 20.5 %; LYMPH ABS # 1.51 K/uL (1.2-3.4); MEAN CELL VOLUME 92.4 fL (80-100); MEAN CORPUSCULAR HEMOGLOBIN 30.3 pg (25-34); MEAN CORPUSCULAR HGB CONC 32.7 g/dl (32-36); MEAN PLATELET VOLUME 10.5 fL (7.4-10.4); MONO % 8.4 %; MONO ABS # 0.62 K/uL (0.11-0.59); NEUT % 67.9 %; NEUT ABS # 5.01 K/uL (1.4-6.5); PLATELET COUNT 234 K/uL (130-400); RED CELL DISTRIBUTION WIDTH CV 13.7 % (11.5-14.5); RED CELL DISTRIBUTION WIDTH SD 45.7 fL (36.4-46.3); WHITE BLOOD COUNT 7.38 K/uL (4.8-10.8)
[2017-06-20 07:41] LABS: CALCIUM 8.5 mg/dl (8.5-10.1); CREATININE 1.34 mg/dl (0.60-1.20); POTASSIUM 4.1 mmol/L (3.5-5.1)
[2017-06-20] MEDS: CHOLECALCIFEROL 1000 INTER.UNIT TAB PO SCH ×2 (09:36→22:04)
[2017-06-20] MEDS: AMOXICILLIN/CLAVULANATE TAB 875 MG TAB PO SCH ×2 (09:36→22:11)
[2017-06-20] MEDS: PANTOprazole SOD 40 MG TAB PO SCH ×2 (09:36→22:10)
[2017-06-20] MEDS: CARVEDILOL 12.5 MG TAB PO SCH ×2 (09:37→22:04)
[2017-06-20] MEDS: LACTOBACILLUS ACIDOPHILUS (FLORANEX) TAB PO SCH (09:37)
[2017-06-20] MEDS: SPIRONOLACTONE 25 MG TAB PO SCH ×2 (09:37→22:10)
[2017-06-20] MEDS: CLOPIDOGREL BISULFATE 75 MG TAB PO SCH (09:37)
[2017-06-20] MEDS: ENOXAPARIN 30 MG/0.3 ML SYR SQ SCH ×2 (09:38→22:08)
[2017-06-20] MEDS: HYDROCHLOROTHIAZIDE 25 MG TAB PO SCH (09:38)
[2017-06-20] MEDS: CIPROFLOXACIN 500 MG TAB PO SCH ×2 (09:38→22:11)
[2017-06-20] MEDS: LOSARTAN POTASSIUM 50 MG TAB PO SCH (09:38)
[2017-06-20] MEDS: INSULIN HUMAN REGULAR SC SCH ×5 (09:45→22:08)
--- NOTE | 2017-06-20 10:57 | Anesthesiology Progress Note ---
Anesthesia Post Op Note Date & Time Jun 20, 2017 at 10:56 Vital Signs Vital Signs Past 12 Hours Date Time Temp Pulse Resp B/P (MAP) Pulse Ox O2 Delivery O2 Flow Rate FiO2 06/20/17 10:33 Room Air 06/20/17 07:10 36.7 61 16 126/67 (86) 93 Room Air 06/20/17 03:41 36.8 58 16 132/72 (92) 95 Room Air 06/19/17 23:10 Room Air 06/19/17 23:10 36.8 65 16 133/75 (94) 94 Room Air Notes Mental Status: alert / awake / arousable, participated in evaluation Pt Amnestic to Procedure: Yes Nausea / Vomiting: adequately controlled Pain: adequately controlled Airway Patency, RR, SpO2: stable & adequate BP & HR: stable & adequate Hydration State: stable & adequate Anesthetic Complications: no major complications apparent
[2017-06-20 12:22] VITALS: BP 117/67; PULSE 68; O2SAT 97
--- NOTE | 2017-06-20 13:57 | Wound Progress Note: Inpatient ---
Wound Progress Note Date of Service Jun 20, 2017. Subjective Pt evaluation today including: conversation w/ patient, physical exam, chart review, conversation w/ business analysis consultant Patient seen today for postoperative evaluation following surgical removal for gangrenous changes to the right foot. Patient is well-known to the wound center and has been under our care prior to recent hospitalization. Patient denies any significant pain today. Patient denies any fever chills or night sweats. Patient denies any chest pain shortness of breath abdominal discomfort nausea or vomiting. Patient denies any other systemic complaints. Objective Vital Signs Date Time Temp Pulse Resp B/P (MAP) Pulse Ox O2 Delivery O2 Flow Rate FiO2 06/20/17 10:33 Room Air 06/20/17 07:10 36.7 61 16 126/67 (86) 93 Room Air 06/20/17 03:41 36.8 58 16 132/72 (92) 95 Room Air 06/19/17 23:10 Room Air 06/19/17 23:10 36.8 65 16 133/75 (94) 94 Room Air 06/19/17 21:07 36.8 72 18 136/64 (88) 96 Room Air 06/19/17 20:02 36.8 73 16 136/70 (92) 95 Room Air 06/19/17 18:57 36.8 77 18 156/71 (99) 97 Room Air 06/19/17 17:52 36.7 79 18 211/81 (124) 98 Room Air 06/19/17 17:24 36.4 60 18 165/74 (104) 99 Room Air 06/19/17 16:50 96 Room Air 06/19/17 16:50 36.7 66 16 171/70 (103) 96 Room Air 06/19/17 16:50 96 Room Air 06/19/17 16:30 63 20 173/68 96 Room Air 06/19/17 16:15 64 14 117/63 92 Room Air 06/19/17 16:00 60 15 151/71 100 Room Air 06/19/17 15:45 64 14 163/59 100 Room Air 06/19/17 15:30 61 18 136/65 95 Room Air 06/19/17 15:15 63 18 153/70 100 Room Air 06/19/17 15:05 36.7 62 16 150/73 98 Room Air 06/19/17 14:50 62 15 152/72 98 Room Air 06/19/17 14:40 66 14 168/71 98 Room Air 06/19/17 14:30 65 16 148/84 98 Room Air 06/19/17 14:20 65 18 172/73 100 Oxymask 8 06/19/17 14:14 36 66 16 172/69 100 Oxymask 8 Physical Exam Notes: Patients vital signs were reviewed and found to be unremarkable patient is afebrile the wound site today measures 11.5 x 3 x 0.7 cm. There are [address] No active drainage or bleeding noted. No periwound erythema or edema noted. Improved capillary refill is noted. Laboratory Results Last 24 Hours Test 06/19/17 14:14 06/19/17 17:14 06/19/17 17:53 06/19/17 20:44 Bedside Glucose 113 mg/dl 96 mg/dl 149 mg/dl Prothrombin Time 11.3 SECONDS Prothromb Time International Ratio 1.1 Creatinine 1.33 mg/dl Est Creatinine Clear Calc Drug Dose 39.0 ml/min Estimated GFR () 46.8 Estimated GFR (Non- 40.4 Test 06/20/17 06:42 06/20/17 08:08 06/20/17 12:14 White Blood Count 7.38 K/uL Red Blood Count 3.04 M/uL Hemoglobin 9.2 g/dL Hematocrit 28.1 % Mean Corpuscular Volume 92.4 fL Mean Corpuscular Hemoglobin 30.3 pg Mean Corpuscular Hemoglobin Concent 32.7 g/dl Platelet Count 234 K/uL Mean Platelet Volume 10.5 fL Neutrophils (%) (Auto) 67.9 % Lymphocytes (%) (Auto) 20.5 % Monocytes (%) (Auto) 8.4 % Eosinophils (%) (Auto) 1.6 % Basophils (%) (Auto) 0.1 % Neutrophils # (Auto) 5.01 K/uL Lymphocytes # (Auto) 1.51 K/uL Monocytes # (Auto) 0.62 K/uL Eosinophils # (Auto) 0.12 K/uL Basophils # (Auto) 0.01 K/uL RDW Standard Deviation 45.7 fL RDW Coefficient of Variation 13.7 % Immature Granulocyte % (Auto) 1.5 % Immature Granulocyte # (Auto) 0.11 K/uL Sodium Level 137 mmol/L Potassium Level 4.1 mmol/L Chloride Level 105 mmol/L Carbon Dioxide Level 26 mmol/L Anion Gap 6.0 mmol/L Blood Urea Nitrogen 25 mg/dl Creatinine 1.34 mg/dl Est Creatinine Clear Calc Drug Dose 38.8 ml/min Estimated GFR () 46.4 Estimated GFR (Non- 40.0 BUN/Creatinine Ratio 18.3 Random Glucose 126 mg/dl Calcium Level 8.5 mg/dl Bedside Glucose 134 mg/dl 247 mg/dl Assessment and Plan Assessment: Postoperative nonhealing wound to right foot Peripheral vascular disease Plan: Following dressing removal no debridement is indicated. The site will continue be dressed with Aquacel Ag and gauze changed on a daily basis. Patient 's therapy was discussed with Dr. Umana and it is felt best to leave the sutures in place at the current time as they help to cover the underlying bone found during surgery. No evidence of any osteolytic changes in that bone. We will continue to monitor the patient and evaluate and treat on an outpatient basis upon discharge.
--- NOTE | 2017-06-20 14:16 | Progress Note ---
Progress Note Date of Service: Jun 20, 2017. Subjective No complaints Objective Vital Signs Vital Signs Past 12 Hours Date Time Temp Pulse Resp B/P (MAP) Pulse Ox O2 Delivery O2 Flow Rate FiO2 06/20/17 10:33 Room Air 06/20/17 07:10 36.7 61 16 126/67 (86) 93 Room Air 06/20/17 03:41 36.8 58 16 132/72 (92) 95 Room Air Exam Awake and alert VSS Afebrile Dressing intact Changed by wound care earlier today Intake & Output 8-Hour Column 06/20/17 06/21/17 06/21/17 16:00 00:00 08:00 Intake Total 275 ml Balance 275 ml 24-Hour Column 06/21/17 08:00 Intake Total 275 ml Balance 275 ml Laboratory and Microbiology Results Past 24 Hours Test 06/19/17 17:14 06/19/17 17:53 06/19/17 20:44 06/20/17 06:42 Range/Units Bedside Glucose 96 149 70-90 mg/dl Prothrombin Time 11.3 9.0-12.0 SECONDS Prothromb Time International Ratio 1.1 0.9-1.1 Creatinine 1.33 1.34 0.60-1.20 mg/dl Est Creatinine Clear Calc Drug Dose 39.0 38.8 ml/min Estimated GFR () 46.8 46.4 Estimated GFR (Non- 40.4 40.0 White Blood Count 7.38 4.8-10.8 K/uL Red Blood Count 3.04 4.2-5.4 M/uL Hemoglobin 9.2 12.0-16.0 g/dL Hematocrit 28.1 37-47 % Mean Corpuscular Volume 92.4 80-100 fL Mean Corpuscular Hemoglobin 30.3 25-34 pg Mean Corpuscular Hemoglobin Concent 32.7 32-36 g/dl Platelet Count 234 130-400 K/uL Mean Platelet Volume 10.5 7.4-10.4 fL Neutrophils (%) (Auto) 67.9 % Lymphocytes (%) (Auto) 20.5 % Monocytes (%) (Auto) 8.4 % Eosinophils (%) (Auto) 1.6 % Basophils (%) (Auto) 0.1 % Neutrophils # (Auto) 5.01 1.4-6.5 K/uL Lymphocytes # (Auto) 1.51 1.2-3.4 K/uL Monocytes # (Auto) 0.62 0.11-0.59 K/uL Eosinophils # (Auto) 0.12 0-0.5 K/uL Basophils # (Auto) 0.01 0-0.2 K/uL RDW Standard Deviation 45.7 36.4-46.3 fL RDW Coefficient of Variation 13.7 11.5-14.5 % Immature Granulocyte % (Auto) 1.5 % Immature Granulocyte # (Auto) 0.11 0.00-0.02 K/uL Sodium Level 137 136-145 mmol/L Potassium Level 4.1 3.5-5.1 mmol/L Chloride Level 105 98-107 mmol/L Carbon Dioxide Level 26 21-32 mmol/L Anion Gap 6.0 3-11 mmol/L Blood Urea Nitrogen 25 7-18 mg/dl BUN/Creatinine Ratio 18.3 10-20 Random Glucose 126 70-99 mg/dl Calcium Level 8.5 8.5-10.1 mg/dl Test 06/20/17 08:08 06/20/17 12:14 Range/Units Bedside Glucose 134 247 70-90 mg/dl Imp: Post right foot debridement Plan: Will do local wound care. Can d/c tomorrow if home health care arranged.
[2017-06-20 15:49] VITALS: BP 138/64; PULSE 69; TEMP 36.9; O2SAT 94
[2017-06-20 15:57] VITALS: Ht 162.6 cm; Wt 75.0 kg
[2017-06-20] MEDS: NIFEdipine 30 MG CR TAB PO SCH (21:00)
[2017-06-20] MEDS: ATORVASTATIN 40 MG TAB PO SCH (21:00)
[2017-06-20 23:05] VITALS: BP 126/65; PULSE 65; TEMP 36.7; O2SAT 96
[2017-06-21] MEDS: LEVOTHYROXINE 112 MCG TAB PO SCH (05:18)
[2017-06-21 06:57] VITALS: BP 158/70; PULSE 63; TEMP 36.8; O2SAT 96
[2017-06-21] MEDS ORDERED: AMOX1TAB42 PO (09:16)
[2017-06-21] MEDS ORDERED: MISC-573 (09:16)
--- NOTE | 2017-06-21 09:22 | Discharge Instructions ---
Discharge Instructions Date of Service Jun 21, 2017. Admission Reason for Admission: Gangrene Right Foot Wound Discharge Discharge Diagnosis / Problem: post R foot debridement and 4th toe amputation, R foot gangrene Discharge Goals Goal(s): Therapeutic intervention, Prevent Disease Progression Activity Recommendations Activity Limitations: per Instructions/Follow-up section Use post op boot when ambulating. Elevate R foot when resting. . Instructions / Follow-Up Instructions / Follow-Up Do not get R foot wet when showering or bathing. Current Hospital Diet Patient's current hospital diet: Diabetes Type 2 Diet, AHA Diet (Heart Healthy) Discharge Diet Recommended Diet: AHA Diet (Heart Healthy), Diabetes Type 2 Diet Procedures Procedures Performed: Debridement Right Foot Wound; Transmetatarsal Amputation of Right Fourth Toe; Excision of Third Metatarsal and proximal phanlynx Pending Studies Studies pending at discharge: no Medical Emergencies . Who to Call and When: Medical Emergencies: If at any time you feel your situation is an emergency, please call 911 immediately. . Non-Emergent Contact Non-Emergency issues call your: Primary Care Provider . "Provider Documentation" section prepared by Marzena Pastor. . VTE Core Measure Inpt VTE Proph given/why not?: Enoxaparin (Lovenox)SQ
--- NOTE | 2017-06-21 09:44 | Progress Note ---
Progress Note Date of Service: Jun 21, 2017. Subjective 71 yo f s/p R foot debridement and 4h toe amputation, seen in f/u today. Pt states pain well controlled, minimal medication requirement. Ambulating in room with walker and cam boot. Denies other complaints. Objective Vital Signs Vital Signs Past 12 Hours Date Time Temp Pulse Resp B/P (MAP) Pulse Ox O2 Delivery O2 Flow Rate FiO2 06/21/17 06:57 36.8 63 18 158/70 (99) 96 Room Air 06/20/17 23:45 Room Air 06/20/17 23:05 36.7 65 16 126/65 (85) 96 Room Air Exam CONST: A&O x3, NAD, mildly chronically ill appearing female CHEST: RRR lungs ctab ABD: soft, nontender, + bs x 4 quad EXT: RLE debridement site with healthy, pink granulation noted in shallow wound bed. Minimal bloody drainage noted. Remaining toes with brisk cap refill. Laboratory and Microbiology Results Past 24 Hours Test 06/20/17 12:14 06/20/17 16:55 06/20/17 20:49 Range/Units Bedside Glucose 247 195 233 70-90 mg/dl ASSESSMENT and PLAN: s/p RLE foot debridement and 4th toe amputation R foot wound gangrene Pt doing well post op. OK for d/c home with home nursing for dressing changes daily. Dylan see in office next week. ALso to see wound clinic next week.
[2017-06-21] MEDS: LACTOBACILLUS ACIDOPHILUS (FLORANEX) TAB PO SCH (10:51)
[2017-06-21] MEDS: LOSARTAN POTASSIUM 50 MG TAB PO SCH (10:51)
[2017-06-21] MEDS: INSULIN HUMAN REGULAR SC SCH (10:52)
[2017-06-21] MEDS: CLOPIDOGREL BISULFATE 75 MG TAB PO SCH (10:52)
[2017-06-21] MEDS: CHOLECALCIFEROL 1000 INTER.UNIT TAB PO SCH (10:52)
[2017-06-21] MEDS: ENOXAPARIN 30 MG/0.3 ML SYR SQ SCH (10:53)
[2017-06-21] MEDS: HYDROCHLOROTHIAZIDE 25 MG TAB PO SCH (10:53)
[2017-06-21 11:50] VITALS: BP 158/70; PULSE 63; TEMP 36.8; O2SAT 96
== END 2017-06-21 12:16 | disposition home health service (06) | DRG 504 ==
LOC: C.ACU 10:25 → C.MSW 11:00 → EDBEDREQ 15:04 → ENRESERV 15:14 → CANRESERV 15:14 → ENRESERV 16:33
PROVIDERS: ADMIT Surgery Vascular Surgery; ATTEND Surgery Vascular Surgery
PROC: 0Y6T0Z2 Detachment at Right 3rd Toe, Mid, Open Approach (ICD-10-PCS; principal; 2017-06-19 13:00)
DX: T87.89 Other complications of amputation stump (principal); I70.268 Atherosclerosis of native arteries of extremities with gangrene, other extremity; I10 Essential (primary) hypertension; E11.9 Type 2 diabetes mellitus without complications; Z79.4 Long term (current) use of insulin; Z83.3 Family history of diabetes mellitus; Z82.49 Family history of ischemic heart disease and other diseases of the circulatory system

== ENCOUNTER 2017-07-12 09:34 | Day surgery (SDC) | payer OTHER, MEDICARE ==
[2017-07-10 08:16] VITALS: BMI 28.0
[~2017-07-12] VITALS: Ht 162.6 cm; Wt 75.0 kg
--- NOTE | 2017-07-12 06:01 | History and Physical ---
History & Physical Date of Service Jul 12, 2017. History & Physical Chief Complaint RLE PAD with slowly healing wound of right foot History of Present Illness The patient is a 71 year old female with hx of scleroderma, HTN, DMII on insulin , hx of L CEA and LLE fem-pop bypass in remote past, who underwent limb salvage intervention in Feb. She developed a gangrenous ulcer on the plantar aspect of her right foot and underwent an open 5th toe amputation. The amputation site is now nonhealing and has gangrenous changes. 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 She underwent endovascular intervention on these lesions last week with good results. She underwent amputation of the 5th and 4th toes along with debridement of the lateral aspect of the foot with removal of the 3rd metatarsal. She is being treated with a wound vac however due to the floppy 3rd toe the wound vac is not getting a good seal. It was recommended to remove the third toe to get better results from the vac. Pt denies QUINTERO, fever, chills, chest pain, SOB, abd pain, N/V, other ulcerations. Home Medications Scheduled Atorvastatin (Lipitor), 80 MG PO DAILY Carvedilol (Coreg), 1 TAB PO BID Cholecalciferol (Vitamin D3), 1 TAB PO DAILY Clopidogrel (Plavix), 75 MG PO DAILY Hydrochlorothiazide (Hctz), 1 TAB PO DAILY Omeprazole (Prilosec), 20 MG PO DAILY Spironolactone (Aldactone), 25 MG PO BID Miscellaneous Medications Albuterol (Ventolin) Fluticasone Prop/Salmeterol (Advair Diskus 500/50 Mcg *) Furosemide (Lasix *) Insulin Detemir (Levemir), 32 Insulin Isophan/Regular (Humulin 70/30), 0 SC Levothyroxine (Synthroid *) Losartan Potassium (Cozaar *) Nifedipine Ext Rel (Procardia Xl Ext Rel), 30 MG PO Allergies: eflurane alejo inhibitors contrast Surgical / Medical History Past Medical/Surgical History: Diabetes, Hypertension Family History + DMII, HTN Social History Smoking Status: Never Smoker Review of Systems Constitutional: No chills, No fever, No malaise Skin: No change in color Eyes: No visual changes ENMT: No sore throat Respiratory: No cough, No PRATHER Cardiovascular: + intermittent claudication, No chest pain, No edema Gastrointestinal: No abdominal pain, No nausea, No vomiting Genitourinary - Female: No dysuria, No hematuria Neurologic: No dizziness, No headache, No numbness, No tingling Physical Exam Constitutional: General Apperance: heathly-appearing, well-nourished, well-developed Level of Distress: NAD Psychiatric: Mental Status: active & alert, normal mood, normal affect Orientation: oriented except where noted, to time, to place, to person Memory: recent memory normal, remote memory normal Head: normocephalic, atraumatic Eyes: EOM: EOMI ENMT: normal ENT inspection, hearing grossly normal Neck: supple, trachea midline Lungs: Respiratory effort: no dyspnea Auscultation: no rales/crackles, no rhonchi, decreased breath sounds Cardiovascular: Apical Impulse: not displaced Heart Auscultation: RRR, no rubs, no gallops Peripheral Pulses: Pulses: full and equal, in all extremities except if noted Bruits: none appreciated Carotid Pulse: normal on the left, normal on the right Brachial Pulses: normal on the left, normal on the right Radial Pulse: normal on the left, normal on the right Femoral Pulse: normal on the left, normal on the right Posterior Tibialis Pulse: decreased on the left, absent on the right Dorsalis Pedis Pulse: decreased on the left, absent on the right Abdomen: Bowel Sounds: normal Inspection & Palpation: soft, non-distended, no tenderness, guarding & rebound Musculoskeletal: normal strength (5/5 throughout), normal tone Extremities: Upper Right: no cyanosis, no edema, no varicosities Upper Left: no cyanosis, no edema, no varicosities Lower Right: no cyanosis, no edema, no varicosities, healing wound of plantar aspect of foot, floppy third toe Lower Left: no cyanosis, no edema, no varicosities Neurologic: Cranial Nerves: grossly intact Assessment and Plan ASSESSMENT: Severe PAD with healing amputation site of the right foot Plan: Patient is admitted for third toe amputation of her right foot. I have discussed the risks options and benefits of the procedure with the patient. The patient understands the risks options and benefits and agrees to the procedure.
[~2017-07-12 09:34] MED LIST changes: -CEFAZOLIN 1000MG IV PUSH 5 ML IV SCH; +Cysto-Conray II 17.2% 250ML BOTTLE ONE; -OXYC-57 PO; +SODIUM CHLORIDE 0.9% 1000ML 1,000 ML IV SCH; -SODIUM CHLORIDE 0.9% 1000ML IV SCH
[2017-07-12] MEDS ORDERED: CIPR1TAB11 PO (10:10)
[2017-07-12] MEDS ORDERED: AMOX1TAB43 PO (10:10)
[2017-07-12 10:20] VITALS: BP 147/71; PULSE 59; TEMP 36.7; O2SAT 97; Ht 162.6 cm; Wt 75.0 kg
[2017-07-12] MEDS ORDERED: LIDOCAINE HCL 1% 20 ML VIAL ONE (10:29)
--- NOTE | 2017-07-12 10:55 | [facility] Post Operative Brief Note ---
Immediate Operative Summary Operative Date Jul 12, 2017. Pre-Operative Diagnosis Open right foot wound Post-Operative Diagnosis Open right foot wound Procedure(s) Performed Amputation right 3rd toe Surgeon julien Bike Mechanic Surgeon(s) Vanesa Neumann MD, Marzena Pastor,PAC Estimated Blood Loss 0 Findings Consistent with Post-Op Diagnosis Specimens right third toe Drains None Anesthesia Type Local Complication(s) none Disposition Accompanied Pt To Recover: no Disposition:
--- NOTE | 2017-07-12 11:02 | Discharge Instructions ---
Discharge Instructions Date of Service Jul 12, 2017. Visit Reason for Visit: Non-Healing Right Foot 3RD Toe Ulcer Discharge Discharge Diagnosis / Problem: Third toe amputation Discharge Goals Goal(s): Therapeutic intervention Activity Recommendations Activity Limitations: per Instructions/Follow-up section Anesthesia . Post Anesthesia Instructions: If you have had General Anesthesia or IV Sedation: * Do not drive today. * Resume driving when surgeon permits. * Do not make important decisions or sign legal documents today. * Call surgeon for: 1. Temperature elevations greater than 101 degrees F. 2. Uncontrollable pain. 3. Excessive bleeding. 4. Persistent nausea and vomiting. 5. Medication intolerance (nausea, vomiting or rash). * For nausea and vomiting use only clear liquids such as: tea, soda, bouillon until nausea subsides, then gradually increase diet as tolerated. * If you have any concerns or questions, call your surgeon's office. If physician is unavailable and it is an emergency, call 911 or go to the nearest emergency room. . Instructions / Follow-Up Instructions / Follow-Up Call [phone] to schedule a follow up appointment if one not already scheduled. ACTIVITY RECOMMENDATIONS: See Above SPECIAL CARE INSTRUCTIONS: Call your doctor if: * Temperature above 101 degrees * Pain not relieved by pain medicine ordered * There is increased drainage or redness from any incision * You have any unanswered questions or concerns. Diet Recommendations Recommended Home Diet: resume previous diet Procedures Procedures Performed: Amputation right 3rd toe Pending Studies Studies pending at discharge: no Medical Emergencies . Who to Call and When: Medical Emergencies: If at any time you feel your situation is an emergency, please call 911 immediately. . Non-Emergent Contact Non-Emergency issues call your: Surgeon . . "Provider Documentation" section prepared by Wesley Umana. .
[2017-07-12 11:05] VITALS: BP 151/73; PULSE 63; TEMP 37.1; O2SAT 96
[2017-07-12 11:35] VITALS: BP 171/68; PULSE 60; TEMP 36.6; O2SAT 95
--- NOTE | 2017-07-12 18:17 | OPERATIVE REPORT ---
DATE OF OPERATION: 07/12/2017 PREOPERATIVE DIAGNOSIS: Open right foot wound. POSTOPERATIVE DIAGNOSIS: Open right foot wound. PROCEDURE: Amputation of right third toe. SURGEON: Dr. Wesley Umana. DAIRY NUTRITION SPECIALIST: Dr. Vanesa Neumann and Marzena Pastor PA-C. ESTIMATED BLOOD LOSS: 0 mL SPECIMEN: Right third toe. ANESTHESIA: Local. COMPLICATIONS: None. INDICATIONS: Mrs. Trista Almaraz is a 71-year-old woman with history of scleroderma, hypertension, type 2 diabetes, peripheral arterial disease, status post left carotid endarterectomy and left lower extremity femoral popliteal bypass. She developed a gangrenous ulcer on the plantar aspect of her right foot and underwent amputations of her fourth and fifth toes. She has undergone several debridements of her right lateral foot including removal of the third metatarsal. The wound was being treated with a wound VAC; however, after removal of the third metatarsal, increased mobility in the right third toe made wound VAC difficult to apply. For this reason, she was recommended to undergo a right third toe amputation. Risks, benefits and alternatives were discussed with the patient and she consented to the procedure. DESCRIPTION OF PROCEDURE: The patient was taken to the operating room and placed in supine position. The right foot was prepped and draped in the usual sterile fashion. A safety timeout was performed, and the patient, procedure and sidedness were correctly identified. Local anesthesia was used to perform digital nerve block of the right third toe. A 15 blade scalpel was then used to remove the third toe in its entirety. The incision was extended to the previous site of metatarsal removal. Hemostasis was achieved with electrocautery. Wound was irrigated. A piece of Aquacel was cut to fit the area of the wound and applied. 4 x 4's and Kerlix were used to dress the wound. The patient tolerated the procedure well and there were no immediate complications. She was transferred to the recovery area in stable condition. Dr. Wesley Umana was present for the entire procedure. I attest to the content of the Intraoperative Record and any orders documented therein. Any exception s are noted below.
== END 2017-07-12 11:44 | disposition home or self-care (01) ==
LOC: C.ACU 09:34
PROVIDERS: ATTEND Surgery Vascular Surgery
DX: I73.9 Peripheral vascular disease, unspecified (principal); E11.51 Type 2 diabetes mellitus with diabetic peripheral angiopathy without gangrene; I10 Essential (primary) hypertension; Z79.02 Long term (current) use of antithrombotics/antiplatelets; Z79.4 Long term (current) use of insulin; Z79.899 Other long term (current) drug therapy

== ENCOUNTER → 2017-08-06 | Outpatient (CLI) | payer OTHER, MEDICARE ==
[~2017-08-06] MED LIST changes: -AMOX1TAB42 PO; +AMOX1TAB43 PO; -Cysto-Conray II 17.2% 250ML BOTTLE ONE; -LACTATED RINGER'S 1000ML 1,000 ML IV SCH; -SODIUM CHLORIDE 0.9% 1000ML 1,000 ML IV SCH
[2017-08-06 13:33] LABS: HEMOGLOBIN A1C 7.7 % (4.5-5.6)
[2017-08-06 14:07] LABS: ALBUMIN 3.2 gm/dl (3.4-5.0); ALKALINE PHOSPHATASE 149 U/L (45-117); ALT/SGPT 18 U/L (12-78); AST/SGOT 14 U/L (15-37); BLOOD UREA NITROGEN 21 mg/dl (7-18); CALCIUM 9.2 mg/dl (8.5-10.1); CARBON DIOXIDE 28 mmol/L (21-32); CHOLESTEROL 162 mg/dl (0-200); CREATININE 0.99 mg/dl (0.60-1.20); GLUCOSE 100 mg/dl (70-99); POTASSIUM 3.8 mmol/L (3.5-5.1); SODIUM 137 mmol/L (136-145); TOTAL PROTEIN 7.4 gm/dl (6.4-8.2)
[2017-08-06 14:08] LABS: LDL CHOLESTEROL CALCULATED 93 mg/dl
== END | disposition home or self-care (01) ==
LOC: C.LABMFLN 09:20
PROVIDERS: ATTEND Family Medicine
DX: I10 Essential (primary) hypertension (principal); E03.9 Hypothyroidism, unspecified; E10.21 Type 1 diabetes mellitus with diabetic nephropathy; E55.9 Vitamin D deficiency, unspecified

== ENCOUNTER → 2017-08-08 | Outpatient (CLI) | payer OTHER, MEDICARE ==
[2017-08-15 02:30] LABS: ANA SCREEN TC 249X POSITIVE (NEGATIVE); ANTI-SS-A <1.0 NEG AI (<1.0 NEG); ANTI-SS-B <1.0 NEG AI (<1.0 NEG); COMPLEMENT C3 TC 44859W 145 MG/DL (90-180); COMPLEMENT C4 TC 44982E 24 MG/DL (16-47)
[2017-08-16 14:33] LABS: ANA TITER > OR = 1:1280 TITER (<1:40)
== END | disposition home or self-care (01) ==
LOC: C.LABMFLN 10:57
PROVIDERS: ATTEND Internal Medicine Rheumatology
DX: I73.00 Raynaud's syndrome without gangrene (principal)

== ENCOUNTER → 2017-09-06 | Outpatient (CLI) | payer OTHER, MEDICARE ==
[2017-09-06 15:03] LABS: ALBUMIN 3.2 gm/dl (3.4-5.0); BLOOD UREA NITROGEN 20 mg/dl (7-18); CALCIUM 9.1 mg/dl (8.5-10.1); CARBON DIOXIDE 25 mmol/L (21-32); CREATININE 1.05 mg/dl (0.60-1.20); GLUCOSE 208 mg/dl (70-99); PHOSPHORUS 3.3 mg/dl (2.5-4.9); SODIUM 137 mmol/L (136-145)
== END | disposition home or self-care (01) ==
LOC: C.LABMFLN 09:10
PROVIDERS: ATTEND Internal Medicine Nephrology
DX: N18.3 Chronic kidney disease, stage 3 (moderate) (principal)

== ENCOUNTER → 2017-09-16 | Day surgery (SDC) | payer OTHER, MEDICARE ==
[~2017-09-16] VITALS: Ht 165.1 cm; Wt 72.8 kg
[2017-09-16] VITALS (10 sets, daily range): BP systolic 119–171; BP diastolic 58–82; PULSE 67–84; TEMP 36.4–37; O2SAT 95–99; Ht 165.1 cm; Wt 72.8 kg
[~2017-09-16] MED LIST changes: +CEFAZOLIN 1000MG IV PUSH 7.5 ML IV SCH; +CIMETIDINE 300 MG TAB PO SCH; +FENTANYL CITRATE INJ 50 MCG/1 ML 2 ML VIAL IV ONE; +FENTANYL CITRATE INJ 50 MCG/1 ML 2 ML VIAL ONE; +HEPARIN SOD (PORCINE) 1000 UNIT/ML 10 ML VIAL IV ONE; +HEPARIN SOD (PORCINE) 1000 UNIT/ML 10 ML VIAL ONE; +IODIXANOL (VISIPAQUE) 270 MG/ML 150ML FLUSH ONE; +MIDAZOLAM HCL 1 MG/ML 2ML VIAL IV ONE; +MIDAZOLAM HCL 1 MG/ML 2ML VIAL ONE; +NURSING VERBAL MED ORDER ONE; +NovoLIN-R INSULIN PER UNIT CHARGE ONE; +NovoLIN-R INSULIN PER UNIT CHARGE SQ ONE; +NovoLOG PER UNIT CHARGE SC ONE; +OXYCODONE/ACETAMINOPHEN 5-325 TAB PO PRN; +SODIUM CHLORIDE 0.9% 1000ML IV SCH
--- NOTE | 2017-09-16 06:27 | History and Physical ---
History & Physical Date of Service Sep 16, 2017. History & Physical Chief Complaint RLE PAD with nonhealing wound of right foot History of Present Illness Ms. Almaraz is a 72 year old female who with treated for occlusive disease of her right leg in the past. Her wounds are progressing nicely but extremely slow; however, on noninvasive, she has an occlusion of her distal popliteal proximal peroneal artery. The stent above there is widely patent. This area is most likely the area of prior dilatation. Her index in that leg is only 0.51. She has no rest pain and does not walk far or fast enough to claudicate. Pt denies QUINTERO, fever, chills, chest pain, SOB, abd pain, N/V, other ulcerations. Home Medications Scheduled Atorvastatin (Lipitor), 80 MG PO DAILY Carvedilol (Coreg), 1 TAB PO BID Cholecalciferol (Vitamin D3), 1 TAB PO DAILY Clopidogrel (Plavix), 75 MG PO DAILY Hydrochlorothiazide (Hctz), 1 TAB PO DAILY Omeprazole (Prilosec), 20 MG PO DAILY Spironolactone (Aldactone), 25 MG PO BID Miscellaneous Medications Albuterol (Ventolin) Fluticasone Prop/Salmeterol (Advair Diskus 500/50 Mcg *) Furosemide (Lasix *) Insulin Detemir (Levemir), 32 Insulin Isophan/Regular (Humulin 70/30), 0 SC Levothyroxine (Synthroid *) Losartan Potassium (Cozaar *) Nifedipine Ext Rel (Procardia Xl Ext Rel), 30 MG PO Allergies: eflurane alejo inhibitors contrast Surgical / Medical History Past Medical/Surgical History: Diabetes, Hypertension Family History + DMII, HTN Social History Smoking Status: Never Smoker Review of Systems Constitutional: No chills, No fever, No malaise Skin: No change in color Eyes: No visual changes ENMT: No sore throat Respiratory: No cough, No PRATHER Cardiovascular: + intermittent claudication, No chest pain, No edema Gastrointestinal: No abdominal pain, No nausea, No vomiting Genitourinary - Female: No dysuria, No hematuria Neurologic: No dizziness, No headache, No numbness, No tingling Physical Exam Constitutional: General Apperance: heathly-appearing, well-nourished, well-developed Level of Distress: NAD Psychiatric: Mental Status: active & alert, normal mood, normal affect Orientation: oriented except where noted, to time, to place, to person Memory: recent memory normal, remote memory normal Head: normocephalic, atraumatic Eyes: EOM: EOMI ENMT: normal ENT inspection, hearing grossly normal Neck: supple, trachea midline Lungs: Respiratory effort: no dyspnea Auscultation: no rales/crackles, no rhonchi, decreased breath sounds Cardiovascular: Apical Impulse: not displaced Heart Auscultation: RRR, no rubs, no gallops Peripheral Pulses: Pulses: full and equal, in all extremities except if noted Bruits: none appreciated Carotid Pulse: normal on the left, normal on the right Brachial Pulses: normal on the left, normal on the right Radial Pulse: normal on the left, normal on the right Femoral Pulse: normal on the left, normal on the right Posterior Tibialis Pulse: decreased on the left, absent on the right Dorsalis Pedis Pulse: decreased on the left, absent on the right Abdomen: Bowel Sounds: normal Inspection & Palpation: soft, non-distended, no tenderness, guarding & rebound Musculoskeletal: normal strength (5/5 throughout), normal tone Extremities: Upper Right: no cyanosis, no edema, no varicosities Upper Left: no cyanosis, no edema, no varicosities Lower Right: no cyanosis, no edema, no varicosities, gangrenous ulcer plantar aspect of foot Lower Left: no cyanosis, no edema, no varicosities Neurologic: Cranial Nerves: grossly intact Assessment and Plan ASSESSMENT: Severe PAD with nonhealing wound of the right foot Plan: Patient is admitted for arteriography with possible intervention. I have discussed the risks options and benefits of the procedure with the patient. The patient understands the risks options and benefits and agrees to the procedure.
[2017-09-16 06:59] LABS: CREATININE 1.38 mg/dl (0.60-1.20)
--- NOTE | 2017-09-16 07:39 | Pre Sedation Assessment ---
Pre Sedation Assessment General Date of Sedation: Sep 16, 2017. Vital Signs Past 12 Hours Date Time Temp Pulse Resp B/P (MAP) Pulse Ox O2 Delivery O2 Flow Rate FiO2 09/16/17 06:29 36.4 67 18 119/58 (78) 98 Room Air Review Cardiovascular: regular rate, rhythm Lungs: lungs clear Pre-Sedation Airway Assessment Smoking Status: Never Smoker Hx of Sleep Apnea: No Short Thick Neck: No Thyro-mental Distance: > 3 Finger Breadths Oral Cavity: Capped Teeth Mallampati Classification: Class II ASA Classification: Class III NPO Status Date of Last Intake of Fluids: Sep 15, 2017 Time of Last Intake of Fluids: 2200 Date of Last Intake of Solids: Sep 15, 2017 Time of Last Intake of Solids: 1700 Procedure Planning Contraindications for Sedation: None Current Medications Reviewed: Yes Notes The planned sedation has been discussed with the patient. Informed Consent was obtained. I have identified the patient, determined the appropriateness of sedation and have assessed the patient immediately prior to the procedure. All medicine(s) and interventions are by my order.
--- NOTE | 2017-09-16 09:42 | Post Sedation Assessment ---
Post Sedation Assessment General Date of Sedation Sep 16, 2017. Vital Signs: Vital Signs Past 12 Hours Date Time Temp Pulse Resp B/P (MAP) Pulse Ox O2 Delivery O2 Flow Rate FiO2 09/16/17 09:35 69 18 126/55 98 Room Air 09/16/17 09:30 Mask 4 09/16/17 09:25 Mask 4 09/16/17 09:20 Mask 4 09/16/17 09:15 Mask 4 09/16/17 09:10 Mask 4 09/16/17 09:05 Mask 4 09/16/17 09:00 Mask 4 09/16/17 08:55 Mask 4 09/16/17 08:50 Mask 4 09/16/17 08:45 72 18 Mask 4 09/16/17 08:37 72 18 163/77 100 Mask 4 09/16/17 06:29 36.4 67 18 119/58 (78) 98 Room Air Post Procedure Recovery Score Activity: (2) Moves 4 extremities * Respiration: (2) Deep breath/cough Circulation: (1) +/-20-49% PreAnes Jessenia Consciousness: (2) Fully Awake Oxygen Saturation: (2) > 92% On Room Air Post Anesthesia Score: 9 Discharge Sedation Level of Care: Fast Track Phase II Post Sedation Plan On clinical assessment, the patient appears to have tolerated the sedation without complications. Patient is recovering as anticipated. Patient will continue to be monitored by nursing and may be discharged when sedation discharge criteria are met per below protocol. Upon Completions of procedure and additional 15 minutes continue every 5 minute vital signs and the P.A.R. score; then discharge to a Phase I or Fast Track to Phase II per the following guidelines: * Discharge Patient to appropriate Phase II area if PAR is 8 or greater or return to pre- procedure baseline. The post - procedure orders will be as directed. * If PAR score is less than 8 or not return to pre-procedure baseline then patient will follow Phase I monitoring till PAR is reached for Phase II. The Phase I may be done in procedure room or may call to secure a Phase I area. * If naloxone or flumazenil are used for reversal, hold in Phase I for an additional 60 -120 minutes before discharge to Phase II. Please call the Sedation Physician to re-evaluate and complete post-note for discharge to Phase II area. Do NOT discharge from procedure sedation or Phase 1 until post- sedation evaluation note is complete by procedure /sedation MD Sedation Discharge Instructions to be given to the patient at discharge to home.
--- NOTE | 2017-09-16 09:42 | [facility] Post Operative Brief Note ---
Immediate Operative Summary Operative Date Sep 16, 2017. Pre-Operative Diagnosis Right Lower Extremity Peripheral Arterial Disease with nonhealing wound of right foot Post-Operative Diagnosis Right peroneal artery occlusion Procedure(s) Performed Right Lower Extremity Angiogram, percutaneous balloon angioplasty of peroneal and popliteal artery right lower extremity, Mechanical closure left femoral artery, Moderate conscious sedation ([id number]) Surgeon Dr. Umana Biological Technician Surgeon(s) Dr. Neumann Estimated Blood Loss 5cc Findings Consistent with Post-Op Diagnosis Specimens None Drains None Anesthesia Type IV Sedat Cons RN Only Complication(s) none Disposition Accompanied Pt To Recover: no Disposition:
--- NOTE | 2017-09-16 09:44 | Discharge Instructions ---
Discharge Instructions Date of Service Sep 16, 2017. Visit Reason for Visit: Right Peroneal Occlusion Discharge Discharge Diagnosis / Problem: Right peroneal artery occlusion Discharge Goals Goal(s): Therapeutic intervention Activity Recommendations Activity Limitations: per Instructions/Follow-up section Anesthesia . Post Anesthesia Instructions: If you have had General Anesthesia or IV Sedation: * Do not drive today. * Resume driving when surgeon permits. * Do not make important decisions or sign legal documents today. * Call surgeon for: 1. Temperature elevations greater than 101 degrees F. 2. Uncontrollable pain. 3. Excessive bleeding. 4. Persistent nausea and vomiting. 5. Medication intolerance (nausea, vomiting or rash). * For nausea and vomiting use only clear liquids such as: tea, soda, bouillon until nausea subsides, then gradually increase diet as tolerated. * If you have any concerns or questions, call your surgeon's office. If physician is unavailable and it is an emergency, call 911 or go to the nearest emergency room. . Instructions / Follow-Up Instructions / Follow-Up Call [phone] to schedule a follow up appointment if one not already scheduled. SPECIAL CARE INSTRUCTIONS: Medications: * Continue to take your medications as directed. If you have been given a prescription for Plavix, please fill it immediately and take as directed. Incision Care: * Your puncture site may have some bruising and minor swelling for about one week. * You will have a small dressing covering your puncture site. You may remove the dressing after 24 hours and shower. You may let the warm soapy water run over it, but be sure to dry the puncture site well and keep it dry. * DO NOT IMMERSE THE INCISION IN A TUB/POOL/etc. UNTIL HEALED. * Puncture sites should be kept covered with a band-aid until it begins to heal. Restrictions: * Depending on whether you leg or arm was punctured to access the arteries, you will be required to lay flat, hold your arm still, or both, for about 4 hours after the procedure to prevent bleeding. * Limit your activity for the first 48 hours. You may walk and go up and down steps. Avoid excessive bending or movement at the puncture site. Possible Complications: * Excessive Swelling - after blood flow is improved you may notice increased swelling in the lower legs. This is a normal response. This usually depends on the amount of blockages in the leg, how long they have been there prior to your procedure and how much blood flow was restored. Elevating your legs will help to improve this. Please notify our office ([phone] ) if the swelling does not go away after lying in bed overnight. * Infection/Drainage/Bleeding - Drainage or bleeding from the puncture site should be minimal. If you have excessive bleeding or drainage, call our office ([phone]) right away. * Pain - You may experience some mild pain or soreness at your puncture site. If your pain does not improve, please contact our office ([phone]). Call your doctor and seek emergent treatment if you develop: * Temperature above 101 degrees * Any fever or chills * Any redness or purulent drainage from the puncture site * Any new dusky/blue colored toes or feet with coolness or sharp or aching pain. SKIN IRRITATION: * You may experience some redness and/or swelling in the area where radiation was administered. If any skin irritation occurs, please contact your family physician. FOLLOW UP VISIT: Keep any scheduled doctor appointments. Diet Recommendations Recommended Home Diet: resume previous diet Procedures Procedures Performed: Right Lower Extremity Angiogram, percutaneous balloon angioplasty of peroneal and popliteal artery right lower extremity, Mechanical closure left femoral artery, Moderate conscious sedation ([id number]) Pending Studies Studies pending at discharge: no Medical Emergencies . Who to Call and When: Medical Emergencies: If at any time you feel your situation is an emergency, please call 911 immediately. . Non-Emergent Contact Non-Emergency issues call your: Surgeon . . "Provider Documentation" section prepared by Wesley Umana. .
--- NOTE | 2017-09-16 11:26 | DIAGNOSTIC IMAGING REPORT ---
DATE OF PROCEDURE: 09/16/2017 PREOPERATIVE DIAGNOSIS: Right lower extremity peripheral arterial disease with a nonhealing right foot wound. POSTOPERATIVE DIAGNOSIS: Right lower extremity peripheral arterial disease with a nonhealing right foot wound and right peroneal artery occlusion. PROCEDURES: Left femoral access, right lower extremity angiogram, percutaneous angioplasty of right peroneal, tibioperoneal trunk, and below-knee popliteal artery. Mechanical closure of the femoral artery, moderate sedation 49 minutes. SURGEON: Dr. Wesley Umana COSMETIC SALES: Dr. Vanesa Neumann ESTIMATED BLOOD LOSS: 5 mL. ANESTHESIA: Monitored sedation plus local. SPECIMENS: None. COMPLICATIONS: None. INDICATIONS: Mrs. Trista Almaraz is a 72-year-old woman with a history of peripheral vascular disease and a nonhealing wound of her right lower extremity. She has previously undergone several toe amputations. She underwent a duplex which showed an occlusion of the distal popliteal and proximal peroneal arteries. For this reason, she was recommended to undergo a right lower extremity angiogram for limb salvage and to assist with wound healing. The risks, benefits, and alternatives were discussed with the patient and she consented to the procedure. DESCRIPTION OF PROCEDURE: The patient was taken to the endovascular suite and placed in supine position. Her bilateral groins were prepped and draped in the usual sterile fashion. A safety timeout was performed and the patient, procedure, and sidedness were correctly identified. The left femoral artery was identified with palpation and had a strong palpable pulse. Hemostat was placed over the area where the pulse was appreciated and imaging confirmed this to be over the femoral head. Local anesthesia was used to anesthetize the skin overlying the left femoral artery. The left femoral artery was accessed with an 18-gauge access needle and a short J-wire was placed through the needle and into the left iliac system. A small skin fabiano was made. The wire was removed and a 5-Slovenian sheath was placed over the wire up the left side. The dilator and wire were removed. An 0.035 Glidewire was placed up the left side into the distal aorta. A rim catheter was placed over the wire and used to cross the aortic bifurcation. This was advanced down the right iliac system. A right lower extremity angiogram was obtained and showed the previously placed right popliteal stent to be patent. There was an area of the peroneal occlusion at the proximal aspect of the peroneal and tibioperoneal trunk. The right SFA was then selected with a 0.035 Glidewire. A long 0.035 Glidewire and a 6 x 45 destination sheath were placed. The wire was advanced into the distal popliteal artery. An 0.035 Quick-Cross catheter was placed over the wire and the wire was advanced across the peroneal occlusion and into the portion of the peroneal artery that reconstituted. The Quick-Cross was advanced across the occlusion and the wire was removed. An angiogram was obtained and confirmed our positioning in the peroneal artery. An 0.014 Command wire was then placed through the Quick-Cross catheter and down to the distal peroneal artery. The Quick-Cross was removed and a 3 x 60 angioplasty balloon was brought onto the sterile field. This was advanced over the wire into the area of proximal peroneal occlusion. This was inflated across the proximal peroneal, tibioperoneal trunk, and distal below-knee popliteal artery. A completion angiogram was obtained and showed resolution of the occlusion following angioplasty. All wires, sheaths, and catheters were removed and a StarClose closure device was used to close the left femoral arterial access. Manual pressure was held over the access site following the StarClose deployment for several minutes with good hemostasis. The patient had a strong Doppler DP and peroneal signal in the right at the completion of the case. The patient was transferred to the recovery area in stable condition and there were no immediate complications. She tolerated the procedure well. Dr. Wesley Umana was present for the entire procedure.
== END | disposition home or self-care (01) ==
LOC: C.ACU 05:40
PROVIDERS: ATTEND Surgery Vascular Surgery
DX: I70.234 Atherosclerosis of native arteries of right leg with ulceration of heel and midfoot (principal); L97.511 Non-pressure chronic ulcer of other part of right foot limited to breakdown of skin; E11.52 Type 2 diabetes mellitus with diabetic peripheral angiopathy with gangrene; E11.621 Type 2 diabetes mellitus with foot ulcer; I10 Essential (primary) hypertension; Z79.02 Long term (current) use of antithrombotics/antiplatelets; Z79.899 Other long term (current) drug therapy; Z79.4 Long term (current) use of insulin; Z88.8 Allergy status to other drugs, medicaments and biological substances; Z83.3 Family history of diabetes mellitus; Z82.49 Family history of ischemic heart disease and other diseases of the circulatory system

== ENCOUNTER → 2018-01-07 | Outpatient (CLI) | payer OTHER, MEDICARE ==
[~2018-01-07] MED LIST changes: -AMOX1TAB43 PO; -CEFAZOLIN 1000MG IV PUSH 7.5 ML IV SCH; -CIMETIDINE 300 MG TAB PO SCH; -CIPR1TAB11 PO; -FENTANYL CITRATE INJ 50 MCG/1 ML 2 ML VIAL IV ONE; -FENTANYL CITRATE INJ 50 MCG/1 ML 2 ML VIAL ONE; -HEPARIN SOD (PORCINE) 1000 UNIT/ML 10 ML VIAL IV ONE; -HEPARIN SOD (PORCINE) 1000 UNIT/ML 10 ML VIAL ONE; -IODIXANOL (VISIPAQUE) 270 MG/ML 150ML FLUSH ONE; -MIDAZOLAM HCL 1 MG/ML 2ML VIAL IV ONE; -MIDAZOLAM HCL 1 MG/ML 2ML VIAL ONE; -NURSING VERBAL MED ORDER ONE; -NovoLIN-R INSULIN PER UNIT CHARGE ONE; -NovoLIN-R INSULIN PER UNIT CHARGE SQ ONE; -NovoLOG PER UNIT CHARGE SC ONE; -OXYCODONE/ACETAMINOPHEN 5-325 TAB PO PRN; -SODIUM CHLORIDE 0.9% 1000ML IV SCH
--- NOTE | 2018-01-07 12:46 | DIAGNOSTIC IMAGING REPORT ---
L-SPINE MIN 4 VIEWS ROUTINE HISTORY: Pain R10.9 Right flank [id number] COMPARISON: None. FINDINGS: Mild wedge deformity superior endplate L3 considered old. Mild degenerative disc change throughout. Moderate degenerative change posterior elements. Mild scoliosis. Atherosclerotic change abdominal aorta as well as iliac vasculature. No subluxation. Disc spaces are preserved. IMPRESSION: Mild scoliosis. Moderate degenerative disc change throughout. Slight wedge deformity superior endplate L3 considered old. The above report was generated using voice recognition software. It may contain grammatical, syntax or spelling errors. Electronically signed by: Hussain Wing M.D. 01/07/2018 12:45 PM Dictated Date/Time: 01/07/2018 12:44 PM
[2018-01-07 14:18] LABS: BASO % 0.1 %; BASO ABS # 0.01 K/uL (0-0.2); EOS % 2.1 %; EOS ABS # 0.17 K/uL (0-0.5); IG# 0.02 K/uL (0.00-0.02); LYMPH % 26.7 %; LYMPH ABS # 2.16 K/uL (1.2-3.4); MEAN CELL VOLUME 88.6 fL (80-100); MEAN CORPUSCULAR HGB CONC 31.6 g/dl (32-36); MEAN PLATELET VOLUME 11.4 fL (7.4-10.4); MONO % 5.4 %; MONO ABS # 0.44 K/uL (0.11-0.59); NEUT % 65.5 %; NEUT ABS # 5.28 K/uL (1.4-6.5); PLATELET COUNT 251 K/uL (130-400); RED CELL DISTRIBUTION WIDTH CV 14.8 % (11.5-14.5); RED CELL DISTRIBUTION WIDTH SD 47.8 fL (36.4-46.3); WHITE BLOOD COUNT 8.08 K/uL (4.8-10.8)
[2018-01-07 14:33] LABS: ALBUMIN 3.4 gm/dl (3.4-5.0); ALKALINE PHOSPHATASE 144 U/L (45-117); ALT/SGPT 27 U/L (12-78); AST/SGOT 24 U/L (15-37); BLOOD UREA NITROGEN 22 mg/dl (7-18); CALCIUM 9.3 mg/dl (8.5-10.1); CARBON DIOXIDE 25 mmol/L (21-32); CREATININE 1.15 mg/dl (0.60-1.20); GLUCOSE 97 mg/dl (70-99); LIPASE 177 U/L (73-393); SODIUM 137 mmol/L (136-145); TOTAL PROTEIN 6.9 gm/dl (6.4-8.2)
--- NOTE | 2018-01-07 14:49 | DIAGNOSTIC IMAGING REPORT ---
ABD/PELVIS ORAL CONT ONLY CLINICAL HISTORY: 72 years-old Female presenting with R10.9 Right flank painR10.811 Abdominal tenderness, right upper. TECHNIQUE: Multidetector CT of the abdomen and pelvis was performed after the administration of oral contrast only. IV contrast: None. A dose lowering technique was used consistent with the principles of ALARA (as low as reasonably achievable). COMPARISON: 05/20/2007. CT DOSE (mGy.cm): The estimated cumulative dose is 310.03 mGy.cm. FINDINGS: [employer] topogram: Cholecystectomy clips. Lung bases: Centrilobular groundglass nodules dependently at the lung bases. Additionally, solid peripheral 4 mm nodule in the lateral basal right lower lobe (series 3 image 29). Solid peripheral 4 mm nodule in the medial basal left lower lobe (series 3 image 29). Normal heart size. Coronary artery and aortic valve calcification. No pericardial or pleural effusion. Liver: Normal morphology. Normal density. Biliary: Mild biliary ductal prominence likely a reservoir effect in the post cholecystectomy state. Gallbladder surgically absent. Pancreas: Normal noncontrast appearance. Spleen: Normal noncontrast appearance. Adrenal glands: Normal noncontrast appearance. Kidneys and ureters: Right kidney absent. No suspicious nodular soft tissue in the right nephrectomy bed allowing for the absence of intravenous contrast. Allowing for the lack of intravenous contrast, normal appearance of the left kidney. No hydronephrosis. Normal left ureter. Bladder: Incompletely evaluated secondary to underdistention. Pelvic organs: Uterus surgically absent. No adnexal masses. Low-density focus at the left aspect of the vaginal cuff (series 3 image 372), unchanged. Bowel: Limited diverticulosis of the proximal to mid sigmoid colon. Mild diffuse colonic wall thickening primarily involving the transverse colon to the rectum. Pericolonic inflammatory change. No bowel obstruction. Peritoneal cavity: No free fluid or intraperitoneal gas. Lymph nodes: No gross lymphadenopathy allowing for noncontrast technique. Vasculature: Dense calcified atherosclerotic plaque throughout the abdominal aorta and origins of the major branch vessels. Abdominal wall: Calcified nodular abnormal soft tissue in the bilateral ventral abdominal wall has increased since the prior exam and is likely related to medication administration. Musculoskeletal: Concavity of the superior endplate of L3. This is unchanged since 2006. IMPRESSION: 1. Mild diffuse colonic wall thickening may indicate mild colitis though this could be due to underdistention. No other evidence of acute intra-abdominal pathology. 2. Postsurgical changes of right nephrectomy. Allowing for the absence of intravenous contrast, no evidence of recurrent disease. 3. Chronic peripheral and basilar predominant centrilobular groundglass nodularity at the lung bases, which could indicate chronic aspiration among other etiologies. 4. Solid 4 mm lower lobe nodules. Attention on follow-up. Fay Society 2017 recommendations do not apply in setting of known malignancy. Electronically signed by: Gustavo Macedo M.D. 01/07/2018 2:48 PM Dictated Date/Time: 01/07/2018 2:37 PM
== END | disposition home or self-care (01) ==
LOC: C.CTS 11:53
PROVIDERS: ATTEND Family Medicine
DX: M51.36 Other intervertebral disc degeneration, lumbar region (principal); Z90.5 Acquired absence of kidney; R10.811 Right upper quadrant abdominal tenderness

== ENCOUNTER 2018-01-15 09:09 | Emergency (ER) | payer OTHER, MEDICARE ==
[~2018-01-15] VITALS: Ht 165.1 cm; Wt 69.9 kg
[2018-01-15 09:16] VITALS: TEMP 36.6; Ht 165.1 cm; Wt 69.9 kg
[2018-01-15] MEDS ORDERED: ONDANSETRON INJ 2 MG/ML 2 ML VIAL IV STA (09:33)
[2018-01-15] MEDS ORDERED: HYDROmorphone INJ 0.5 MG/0.5 ML SYR IV STA ×2 (09:33→12:25)
--- NOTE | 2018-01-15 09:34 | EMERGENCY ROOM VISIT NOTE ---
History Report prepared by Bowen: Sis Hernández Under the Supervision of: Dr. Cristofer Young M.D. First contact with patient: 09:25 Chief Complaint: FLANK PAIN Stated Complaint: RIGHT BACK - FLANK PAIN History of Present Illness The patient is a 72 year old female who presents to the Emergency Room with complaints of persistent right lower back pain that started 2 weeks ago. The patient rates her pain a 10/10 in severity. She states she saw her PCP and was sent to the ED for a CT scan. She notes she was told it may be diverticulitis and was prescribed Flagyl and Cipro. She reports she went back to her PCP because her pain was not any better. She states she was scheduled for a MRI of her lower spine and a MRA of abdomen next week. The patient denies rash or abdominal pain. She reports she takes Plavix. The patient is a non-smoker. Source of History: patient Onset: 2 weeks ago Position: back (lower) Symptom Intensity: 10/10 Timing: other (persistent) Associated Symptoms: No abdominal pain, No rash Review of Systems See HPI for pertinent positives & negatives. A total of 10 systems reviewed and were otherwise negative. Past Medical & Surgical Medical Problems: (1) Diabetic foot ulcer associated with type 1 diabetes mellitus (2) Diabetic peripheral neuropathy associated with type 1 diabetes mellitus (3) Foot deformity (4) Gangrene of right foot (5) Gangrene of toe of left foot (6) Gangrene of toe of right foot (7) Ischemic pain of foot at rest (8) Loss of sensation (9) Peripheral vascular disease (10) Status post partial amputation of foot Family History Cancer Diabetes mellitus Heart disease Hypertension Lung disease Social History Smoking Status: Never Smoker Drug Use: none Marital Status: Housing Status: lives with family Occupation Status: retired Current/Historical Medications Scheduled Atorvastatin (Lipitor), 80 MG PO QPM Carvedilol (Coreg), 1 TAB PO BID Cholecalciferol (Vitamin D3), 1 TAB PO BID Clopidogrel (Plavix), 75 MG PO QAM Docusate Sodium (Colace), 1 CAP PO BID Hydrochlorothiazide (Hctz), 1 TAB PO QAM Insulin Detemir (Levemir), 36 UNITS SC QPM Levothyroxine Sodium (Levothyroxine Sodium), 1 TAB PO QAM Losartan Potassium (Cozaar), 100 MG PO QAM Nifedipine Ext Rel (Procardia Xl Ext Rel), 30 MG PO QPM Omeprazole (Prilosec), 20 MG PO QPM Probiotic Product (Probiotic), 1 TAB PO QAM Sennosides (Senokot), 8.6 MG PO HS Spironolactone (Aldactone), 25 MG PO BID Scheduled PRN Albuterol Hfa (Ventolin Hfa), 2-4 PUFFS INH Q6H PRN for SOB/Wheezing Budesonide/Formoterol Fumarate (Symbicort 160/4.5 Inhaler ), 2 PUFFS INH BID PRN for SOB/Wheezing Oxycodone Immediate Rel Tab (Roxicodone Ir), 1-2 TAB PO Q4H PRN for Severe Pain Miscellaneous Medications Insulin Lispro (Human) (Humalog), SC Allergies Coded Allergies: Enflurane (Verified Allergy, Intermediate, sick, jaundiced, 11/25/17) Iodinated Diagnostic Agents (Verified Allergy, Intermediate, HIVES - IVP DYE, 11/25/17) CHECO Inhibitors (Verified Allergy, Mild, hives, 11/25/17) Physical Exam Vital Signs Date Time Temp Pulse Resp B/P (MAP) Pulse Ox O2 Delivery O2 Flow Rate FiO2 01/15/18 12:54 60 16 156/66 96 Room Air 01/15/18 12:24 64 20 170/74 97 Room Air 01/15/18 10:55 56 20 149/66 95 Room Air 01/15/18 10:25 56 01/15/18 10:15 62 18 162/76 99 Room Air 01/15/18 09:16 36.6 74 20 166/77 96 Room Air Physical Exam GENERAL: Awake, alert, well-appearing, in no acute distress HENT: Normocephalic, atraumatic. Oropharynx unremarkable. EYES: Normal conjunctiva. Sclera non-icteric. NECK: Supple. No nuchal rigidity. FROM. No JVD. RESPIRATORY: Clear to auscultation. CARDIAC: Regular rate, normal rhythm. Extremities warm and well perfused. Pulses equal. ABDOMEN: Soft, non-distended. No tenderness to palpation. No rebound or guarding. No masses. RECTAL: Deferred. MUSCULOSKELETAL: Chest examination reveals no tenderness. The back is symmetrical on inspection without obvious abnormality. There is no CVA tenderness to palpation. No joint edema. Patient is complaining of pain in right side. LOWER EXTREMITIES: Calves are equal size bilaterally and non-tender. No edema. No discoloration. NEURO: Normal sensorium. No sensory or motor deficits noted. SKIN: No rash or jaundice noted. Medical Decision & Procedures ER Provider Diagnostic Interpretation: Radiology results as stated below per my review and radiologist interpretation: SINGLE VIEW CHEST CLINICAL HISTORY: Right flank pain. FINDINGS: An AP, portable, upright chest radiograph is compared to study dated 06/12/2006 and correlated with chest CT dated 07/24/2017. The examination is degraded by portable technique and patient rotation. The cardiomediastinal silhouette is unremarkable noting atherosclerotic calcification of the thoracic aorta. The lungs and pleural spaces are clear. No pneumothorax is seen. The skeletal structures are osteopenic. The bony thorax is grossly intact. A calcified left axillary lymph node is similar to previous. IMPRESSION: No active disease in the chest. Electronically signed by: Agustín Gregg M.D. 01/15/2018 9:51 AM Dictated Date/Time: 01/15/2018 9:50 AM MRI OF THE LUMBAR SPINE WITHOUT IV CONTRAST CLINICAL HISTORY: Right flank pain. COMPARISON STUDY: Radiographs of the lumbar spine dated 01/07/2018. Abdominal CT dated 01/07/2018. TECHNIQUE: MRI of the lumbar spine is performed utilizing various T1 and T2-weighted sequences in the axial and sagittal planes. IV contrast was not administered for this examination. FINDINGS: Lumbar spine: There is a mild chronic superior endplate compression deformity of L3. Vertebral body height is otherwise maintained throughout the lumbar spine. Alignment is preserved. Tiny anterior osteophytes are seen throughout. The transverse and spinous processes appear intact. There is no evidence of spondylolysis. No destructive bony lesion is seen. Chronic degenerative endplate change/sclerosis and a small Schmorl's node are present in the inferior endplate of L2. Mild degenerative endplate edema is noted at L4-L5. Intervertebral discs: There is degenerative disc desiccation and minimal loss of height seen throughout the lumbar spine. Spinal cord: The visualized spinal cord is normal in morphology and signal intensity. The conus medullaris terminates at the L1-L2 interspace. The nerve roots of the cauda equina are normal in morphology. L1-L2: Unremarkable. L2-L3: There is broad-based posterior disc bulge with annular fissure. In conjunction with hypertrophy of the ligamentum flavum, there is mild central canal stenosis at this level with a minimum AP diameter of 8.5 mm. There is bilateral subarticular stenosis. The disc bulge abuts the exiting bilateral L2 and the transiting bilateral L3 nerve roots. The neural foramina are patent. L3-L4: There is minimal posterior disc bulge eccentric to the left with annular fissure. In conjunction with hypertrophy of the ligamentum flavum, there is minimal acquired compromise of the central canal with a minimum AP diameter of 10.5 mm. There is bilateral subarticular stenosis, left greater than left. The disc bulge likely abuts the exiting left L3 and the transiting bilateral L4 nerve roots. Facet arthropathy causes minimal bilateral neural foraminal stenosis. L4-L5: There is minimal posterior disc bulge. The central canal is clear. There is bilateral subarticular stenosis, and the disc bulge likely abuts the transiting bilateral L5 nerve roots. Facet arthropathy causes mild bilateral neural foraminal stenosis. L5-S1: Unremarkable. Sacrum: The visualized sacrum is normal in morphology and signal intensity. Soft tissues: There is fatty atrophy of the paraspinous musculature. The right kidney is surgically absent. A small cyst is noted in the left kidney. No retroperitoneal adenopathy is seen. IMPRESSION: 1. There is a mild chronic superior endplate compression deformity of L3. 2. No acute bony abnormality is identified. 3. Lumbosacral spondylosis as detailed above with minimal acquired compromise in the central canal at L2-L3 and L3-L4. See discussion for detailed [id number] analysis. Dictated: 01/15/2018 12:20 PM Transcribed: 01/15/2018 12:33 PM [facility] MRA ABDOMEN COMBO CLINICAL HISTORY: 72 years-old Female presenting with peripheral artery disease, right flank pain for 2 weeks, history of renal cancer status post right nephrectomy. TECHNIQUE: MR angiography of the abdomen was performed before and after the administration of intravenous contrast. 3-D volumetric and/or maximum intensity projection (MIP) images were subsequently reconstructed for review. IV contrast: 7 mL of Gadavist. Stenosis measurements were based on NASCET-like criteria. COMPARISON: 01/07/2018. FINDINGS: Localizer images: Unremarkable. Lung bases: Lungs and pleural spaces clear. Normal heart size. No pericardial or pleural effusion. Liver: Normal morphology. No liver lesion. Patent hepatic vasculature. Biliary: Mild biliary ductal prominence likely a reservoir effect in the post cholecystectomy state. Gallbladder surgically absent. Pancreas: Normal. Spleen: Normal. Adrenal glands: Normal. Kidneys and ureters: Right kidney absent. No suspicious soft tissue nodularity in the operative bed. Left kidney normal. No hydronephrosis. Parapelvic cysts suggested at the lower pole of the left kidney in addition to few small cortical cysts. Bowel: Normal. No bowel obstruction. Peritoneal cavity: No free fluid. Lymph nodes: No enlarged lymph nodes in the abdomen. Vasculature: Significant atherosclerotic plaque throughout the normal caliber abdominal aorta results in luminal irregularity. Origin of the celiac artery appears patent. Conventional hepatic arterial anatomy. At least 50% stenosis of the origin of the superior mesenteric artery. Atherosclerotic plaque along the proximal left renal artery suggested by irregularity of the lumen. At least 50% stenosis of the bilateral common iliac arteries noted in a very proximal location on the right (series 901 image 47), and the proximal to mid portion on the left (series 901 image 56). On the left is multifocal with a second lesser degree of stenosis in the mid to distal left common iliac artery (series 901 image 62). IVC patent. Abdominal wall: Postsurgical changes of the right mid abdominal wall. Nodularity in the anterior abdominal wall likely from medication administration. Musculoskeletal: Degenerative changes of the spine. IMPRESSION: 1. Significant atherosclerotic disease with at least 50% stenosis of the bilateral common iliac arteries as well as at least 50% stenosis of the origin of the superior mesenteric artery. No abdominal aortic aneurysm. 2. Suspected stenosis of the proximal left renal artery. This may be better characterized with Doppler ultrasound of the left renal artery. 3. Postsurgical changes of right nephrectomy. Electronically signed by: Gustavo Macedo M.D. 01/15/2018 12:30 PM Dictated Date/Time: 01/15/2018 12:21 PM Laboratory Results 01/15/18 10:00 Red Blood Count 4.21, Mean Corpuscular Volume 89.1, Mean Corpuscular Hemoglobin 30.2, Mean Corpuscular Hemoglobin Concent 33.9, Mean Platelet Volume 10.7, Neutrophils (%) (Auto) 79.2, Lymphocytes (%) (Auto) 15.1, Monocytes (%) (Auto) 4.6, Eosinophils (%) (Auto) 0.7, Basophils (%) (Auto) 0.1, Neutrophils # (Auto) 7.86, Lymphocytes # (Auto) 1.50, Monocytes # (Auto) 0.46, Eosinophils # (Auto) 0.07, Basophils # (Auto) 0.01 01/15/18 10:00 Test 01/15/18 09:50 01/15/18 10:00 Urine Color DK YELLOW Urine Appearance CLEAR (CLEAR) Urine pH 5.0 (4.5-7.5) Urine Specific [place] 1.026 (1.000-1.030) Urine Protein NEG (NEG) Urine Glucose (UA) 3+ (NEG) Urine Ketones 1+ (NEG) Urine Occult Blood NEG (NEG) Urine Nitrite NEG (NEG) Urine Bilirubin NEG (NEG) Urine Urobilinogen NEG (NEG) Urine Leukocyte Esterase TRACE (NEG) Urine WBC (Auto) 1-5 /hpf (0-5) Urine RBC (Auto) 0-4 /hpf (0-4) Urine Hyaline Casts (Auto) 1-5 /lpf (0-5) Urine Epithelial Cells (Auto) 10-20 /lpf (0-5) Urine Bacteria (Auto) NEG (NEG) White Blood Count 9.93 K/uL (4.8-10.8) Red Blood Count 4.21 M/uL (4.2-5.4) Hemoglobin 12.7 g/dL (12.0-16.0) Hematocrit 37.5 % (37-47) Mean Corpuscular Volume 89.1 fL (80-100) Mean Corpuscular Hemoglobin 30.2 pg (25-34) Mean Corpuscular Hemoglobin Concent 33.9 g/dl (32-36) Platelet Count 264 K/uL (130-400) Mean Platelet Volume 10.7 fL (7.4-10.4) Neutrophils (%) (Auto) 79.2 % Lymphocytes (%) (Auto) 15.1 % Monocytes (%) (Auto) 4.6 % Eosinophils (%) (Auto) 0.7 % Basophils (%) (Auto) 0.1 % Neutrophils # (Auto) 7.86 K/uL (1.4-6.5) Lymphocytes # (Auto) 1.50 K/uL (1.2-3.4) Monocytes # (Auto) 0.46 K/uL (0.11-0.59) Eosinophils # (Auto) 0.07 K/uL (0-0.5) Basophils # (Auto) 0.01 K/uL (0-0.2) RDW Standard Deviation 48.4 fL (36.4-46.3) RDW Coefficient of Variation 14.8 % (11.5-14.5) Immature Granulocyte % (Auto) 0.3 % Immature Granulocyte # (Auto) 0.03 K/uL (0.00-0.02) Anion Gap 10.0 mmol/L (3-11) Est Creatinine Clear Calc Drug Dose 37.5 ml/min Estimated GFR () 45.7 Estimated GFR (Non- 39.4 BUN/Creatinine Ratio 15.2 (10-20) Calcium Level 9.2 mg/dl (8.5-10.1) Total Bilirubin 0.5 mg/dl (0.2-1) Direct Bilirubin 0.2 mg/dl (0-0.2) Aspartate Amino Transf (AST/SGOT) 36 U/L (15-37) Alanine Aminotransferase (ALT/SGPT) 44 U/L (12-78) Alkaline Phosphatase 211 U/L (45-117) Total Protein 7.6 gm/dl (6.4-8.2) Albumin 3.6 gm/dl (3.4-5.0) Lipase 187 U/L (73-393) Labs reviewed by ED physician. Medications Administered Medications (Trade) Dose Ordered Sig/González Route Start Time Stop Time Status Last Admin Dose Admin Hydromorphone HCl (Dilaudid Inj) 0.5 mg NOW STAT IV 01/15/18 09:33 01/15/18 09:35 DC 01/15/18 10:13 0.5 MG Ondansetron HCl (Zofran Inj) 4 mg NOW STAT IV 01/15/18 09:33 01/15/18 09:36 DC 01/15/18 10:15 4 MG Lidocaine (Lidoderm Patch 5%) 1 patch NOW STAT TD 01/15/18 09:37 01/15/18 09:38 DC 01/15/18 10:14 1 PATCH Sodium Chloride 500 ml @ 999 mls/hr Q31M STAT IV 01/15/18 12:25 01/15/18 12:55 DC 01/15/18 12:58 999 MLS/HR Hydromorphone HCl (Dilaudid Inj) 0.5 mg NOW STAT IV 01/15/18 12:25 01/15/18 12:26 DC 01/15/18 12:58 0.5 MG Acetaminophen (Tylenol Tab) 1,000 mg NOW STAT PO 01/15/18 12:25 01/15/18 12:26 DC 01/15/18 12:58 1,000 MG ED Course 0925: Past medical records reviewed. The patient was evaluated in room A10. A complete history and physical examination was performed. 0105: Upon reexamination the patient is resting comfortably. I discussed results and treatment plan with the patient. She verbalizes agreement and understanding. The patient is ready for discharge. Medical Decision Differential diagnosis: Etiologies such as musculoskeletal, disc herniation, fracture, aortic disease, metastatic disease, cord compression, discitis, infection, renal colic, gastrointestinal, acute exacerbation of chronic back pain, sciatica, cauda equina, as well as others were entertained. This is a 72-year-old female who presents emergency department complaining of flank pain. The patient was sent into the emergency department for an MRI of her back as well as an MRA due to the fact that she is allergic to contrast from CT. MRA shows stenosis of some vessels however I do not feel that the patient is experiencing any ischemic gut. MRI of her lower back shows several slipped disks and I believe she may be experiencing some nerve pain from this. Her pain was controlled with Dilaudid here in the emergency department. I do feel that the patient is well enough to be discharged home for follow-up with her primary care physician. Patient was in agreement with the treatment plan. Medication Reconcilliation Current Medication List: was personally reviewed by me Blood Pressure Screening Patient's blood pressure: Elevated blood pressure Blood pressure disposition: Elevated BP felt to be situational Impression Primary Impression: Flank pain Scribe Attestation The scribe's documentation has been prepared under my direction and personally reviewed by me in its entirety. I confirm that the note above accurately reflects all work, treatment, procedures, and medical decision making performed by me. Departure Information Dispostion Home / Self-Care Prescriptions Docusate Sodium (COLACE) 100 Mg Cap 1 CAP PO BID for 30 Days, #60 CAP Prov: Cristofer Young MD 01/15/18 Sennosides (SENOKOT) 8.6 Mg Tab 8.6 MG PO HS for 30 Days, #30 TAB Prov: Cristofer Young MD 01/15/18 Oxycodone Immediate Rel Tab (ROXICODONE IR) 5 Mg Tab 1-2 TAB PO Q4H Y for Severe Pain, #24 TAB Prov: Cristofer Young MD 01/15/18 Referrals Agustín Jarvis M.D. (PCP) Patient Instructions [facility] Additional Instructions Follow up with Dr Garcia's office You received narcotic or benzodiazepene medication while in the emergency room today. This is an addictive medication that may cause drowziness as well as constipation. Do not drive, operate heavy machinery, or drink alcohol under the influence of this medication. Take 1000 mg Tylenol every 6 hours Take Oxy IR for breakthrough pain You have been examined and treated today on an emergency basis only. This is not a substitute for, or an effort to provide, complete comprehensive medical care. It is impossible to recognize and treat all injuries or illnesses in a single emergency department visit. It is therefore important that you follow up closely with Dr Jarvis. Call as soon as possible for an appointment. Thank you for your time and consideration. I look forward to speaking with you again soon. Please don't hesitate to call us if you have any questions.
[2018-01-15] MEDS ORDERED: LIDODERM (LIDOCAINE) PATCH 5% TD STA (09:37)
--- NOTE | 2018-01-15 09:52 | DIAGNOSTIC IMAGING REPORT ---
SINGLE VIEW CHEST CLINICAL HISTORY: Right flank pain. FINDINGS: An AP, portable, upright chest radiograph is compared to study dated 06/12/2006 and correlated with chest CT dated 07/24/2017. The examination is degraded by portable technique and patient rotation. The cardiomediastinal silhouette is unremarkable noting atherosclerotic calcification of the thoracic aorta. The lungs and pleural spaces are clear. No pneumothorax is seen. The skeletal structures are osteopenic. The bony thorax is grossly intact. A calcified left axillary lymph node is similar to previous. IMPRESSION: No active disease in the chest. Electronically signed by: Agustín Gregg M.D. 01/15/2018 9:51 AM Dictated Date/Time: 01/15/2018 9:50 AM
[2018-01-15 10:21] LABS: BASO % 0.1 %; BASO ABS # 0.01 K/uL (0-0.2); EOS % 0.7 %; EOS ABS # 0.07 K/uL (0-0.5); HEMATOCRIT 37.5 % (37-47); HEMOGLOBIN 12.7 g/dL (12.0-16.0); IG# 0.03 K/uL (0.00-0.02); LYMPH % 15.1 %; MEAN CELL VOLUME 89.1 fL (80-100); MEAN CORPUSCULAR HEMOGLOBIN 30.2 pg (25-34); MEAN CORPUSCULAR HGB CONC 33.9 g/dl (32-36); MEAN PLATELET VOLUME 10.7 fL (7.4-10.4); MONO % 4.6 %; MONO ABS # 0.46 K/uL (0.11-0.59); NEUT % 79.2 %; NEUT ABS # 7.86 K/uL (1.4-6.5); PLATELET COUNT 264 K/uL (130-400); RED CELL DISTRIBUTION WIDTH CV 14.8 % (11.5-14.5); RED CELL DISTRIBUTION WIDTH SD 48.4 fL (36.4-46.3); WHITE BLOOD COUNT 9.93 K/uL (4.8-10.8)
[2018-01-15 10:43] LABS: ALBUMIN 3.6 gm/dl (3.4-5.0); CALCIUM 9.2 mg/dl (8.5-10.1); CREATININE 1.35 mg/dl (0.60-1.20); POTASSIUM 4.3 mmol/L (3.5-5.1); TOTAL PROTEIN 7.6 gm/dl (6.4-8.2)
[2018-01-15] MEDS ORDERED: GADAVIST IV PRN (12:15)
[2018-01-15] MEDS ORDERED: ACETAMINOPHEN 500 MG TAB PO STA (12:25)
[2018-01-15] MEDS ORDERED: SODIUM CHLORIDE 0.9% 500ML 500 ML IV STA (12:25)
--- NOTE | 2018-01-15 12:31 | DIAGNOSTIC IMAGING REPORT ---
MRA ABDOMEN COMBO CLINICAL HISTORY: 72 years-old Female presenting with peripheral artery disease, right flank pain for 2 weeks, history of renal cancer status post right nephrectomy. TECHNIQUE: MR angiography of the abdomen was performed before and after the administration of intravenous contrast. 3-D volumetric and/or maximum intensity projection (MIP) images were subsequently reconstructed for review. IV contrast: 7 mL of Gadavist. Stenosis measurements were based on NASCET-like criteria. COMPARISON: 01/07/2018. FINDINGS: Localizer images: Unremarkable. Lung bases: Lungs and pleural spaces clear. Normal heart size. No pericardial or pleural effusion. Liver: Normal morphology. No liver lesion. Patent hepatic vasculature. Biliary: Mild biliary ductal prominence likely a reservoir effect in the post cholecystectomy state. Gallbladder surgically absent. Pancreas: Normal. Spleen: Normal. Adrenal glands: Normal. Kidneys and ureters: Right kidney absent. No suspicious soft tissue nodularity in the operative bed. Left kidney normal. No hydronephrosis. Parapelvic cysts suggested at the lower pole of the left kidney in addition to few small cortical cysts. Bowel: Normal. No bowel obstruction. Peritoneal cavity: No free fluid. Lymph nodes: No enlarged lymph nodes in the abdomen. Vasculature: Significant atherosclerotic plaque throughout the normal caliber abdominal aorta results in luminal irregularity. Origin of the celiac artery appears patent. Conventional hepatic arterial anatomy. At least 50% stenosis of the origin of the superior mesenteric artery. Atherosclerotic plaque along the proximal left renal artery suggested by irregularity of the lumen. At least 50% stenosis of the bilateral common iliac arteries noted in a very proximal location on the right (series 901 image 47), and the proximal to mid portion on the left (series 901 image 56). On the left is multifocal with a second lesser degree of stenosis in the mid to distal left common iliac artery (series 901 image 62). IVC patent. Abdominal wall: Postsurgical changes of the right mid abdominal wall. Nodularity in the anterior abdominal wall likely from medication administration. Musculoskeletal: Degenerative changes of the spine. IMPRESSION: 1. Significant atherosclerotic disease with at least 50% stenosis of the bilateral common iliac arteries as well as at least 50% stenosis of the origin of the superior mesenteric artery. No abdominal aortic aneurysm. 2. Suspected stenosis of the proximal left renal artery. This may be better characterized with Doppler ultrasound of the left renal artery. 3. Postsurgical changes of right nephrectomy. Electronically signed by: Gustavo Macedo M.D. 01/15/2018 12:30 PM Dictated Date/Time: 01/15/2018 12:21 PM
--- NOTE | 2018-01-15 12:33 | DIAGNOSTIC IMAGING REPORT ---
MRI OF THE LUMBAR SPINE WITHOUT IV CONTRAST CLINICAL HISTORY: Right flank pain. COMPARISON STUDY: Radiographs of the lumbar spine dated 01/07/2018. Abdominal CT dated 01/07/2018. TECHNIQUE: MRI of the lumbar spine is performed utilizing various T1 and T2-weighted sequences in the axial and sagittal planes. IV contrast was not administered for this examination. FINDINGS: Lumbar spine: There is a mild chronic superior endplate compression deformity of L3. Vertebral body height is otherwise maintained throughout the lumbar spine. Alignment is preserved. Tiny anterior osteophytes are seen throughout. The transverse and spinous processes appear intact. There is no evidence of spondylolysis. No destructive bony lesion is seen. Chronic degenerative endplate change/sclerosis and a small Schmorl's node are present in the inferior endplate of L2. Mild degenerative endplate edema is noted at L4-L5. Intervertebral discs: There is degenerative disc desiccation and minimal loss of height seen throughout the lumbar spine. Spinal cord: The visualized spinal cord is normal in morphology and signal intensity. The conus medullaris terminates at the L1-L2 interspace. The nerve roots of the cauda equina are normal in morphology. L1-L2: Unremarkable. L2-L3: There is broad-based posterior disc bulge with annular fissure. In conjunction with hypertrophy of the ligamentum flavum, there is mild central canal stenosis at this level with a minimum AP diameter of 8.5 mm. There is bilateral subarticular stenosis. The disc bulge abuts the exiting bilateral L2 and the transiting bilateral L3 nerve roots. The neural foramina are patent. L3-L4: There is minimal posterior disc bulge eccentric to the left with annular fissure. In conjunction with hypertrophy of the ligamentum flavum, there is minimal acquired compromise of the central canal with a minimum AP diameter of 10.5 mm. There is bilateral subarticular stenosis, left greater than right. The disc bulge likely abuts the exiting left L3 and the transiting bilateral L4 nerve roots. Facet arthropathy causes minimal bilateral neural foraminal stenosis. L4-L5: There is minimal posterior disc bulge. The central canal is clear. There is bilateral subarticular stenosis, and the disc bulge likely abuts the transiting bilateral L5 nerve roots. Facet arthropathy causes mild bilateral neural foraminal stenosis. L5-S1: Unremarkable. Sacrum: The visualized sacrum is normal in morphology and signal intensity. Soft tissues: There is fatty atrophy of the paraspinous musculature. The right kidney is surgically absent. A small cyst is noted in the left kidney. No retroperitoneal adenopathy is seen. IMPRESSION: 1. There is a mild chronic superior endplate compression deformity of L3. 2. No acute bony abnormality is identified. 3. Lumbosacral spondylosis as detailed above with minimal acquired compromise in the central canal at L2-L3 and L3-L4. See discussion for detailed qyozs-ol-gyois analysis. Dictated: 01/15/2018 12:20 PM Transcribed: 01/15/2018 12:33 PM [facility] Electronically signed by: Agustín Gregg M.D. 01/15/2018 12:41 PM Dictated Date/Time: 01/15/2018 12:20 PM
[2018-01-15 12:54] VITALS: BP 156/66; PULSE 60; O2SAT 96
[2018-01-15] MEDS ORDERED: DOCU-94 PO (12:56)
[2018-01-15] MEDS ORDERED: SENN1TAB77 PO (12:56)
[2018-01-15] MEDS ORDERED: OXYC-737 PO (12:56)
== END 2018-01-15 13:20 | disposition home or self-care (01) ==
LOC: C.EDB 09:10 → C.EDA 13:20
DX: R10.9 Unspecified abdominal pain (principal); R03.0 Elevated blood-pressure reading, without diagnosis of hypertension; E10.43 Type 1 diabetes mellitus with diabetic autonomic (poly)neuropathy; Z79.899 Other long term (current) drug therapy; Z91.041 Radiographic dye allergy status; Z88.8 Allergy status to other drugs, medicaments and biological substances

== ENCOUNTER → 2018-01-24 | Outpatient (CLI) | payer OTHER, MEDICARE ==
[~2018-01-24] MED LIST changes: +DOCU-94 PO; +OXYC-737 PO; +SENN1TAB77 PO
== END | disposition home or self-care (01) ==
LOC: C.LABMFLN 07:28
PROVIDERS: ATTEND Family Medicine
DX: E03.9 Hypothyroidism, unspecified (principal)

== ENCOUNTER → 2018-01-27 | Outpatient (CLI) | payer OTHER, MEDICARE ==
--- NOTE | 2018-01-27 16:59 | DIAGNOSTIC IMAGING REPORT ---
RIGHT LOWER EXTREMITY VENOUS DOPPLER CLINICAL HISTORY: Right calf pain. COMPARISON STUDY: Right lower extremity venous Doppler November 25 2017. TECHNIQUE: Sonography of the deep venous system of the right lower extremity was performed. Compression and augmentation were evaluated. FINDINGS: The right common femoral, superficial femoral and popliteal veins are patent. Minimal echogenic material within the right popliteal vein favors minimal chronic thrombus. One of 2 right anterior tibial veins is noncompressible. The sonographic appearance favors chronic thrombus however this thrombus was not evident on exam of November 25, 2017. IMPRESSION: 1. Deep venous thrombus within the right anterior tibial vein. The sonographic appearance favors chronic thrombus however this thrombus was not evident on ultrasound of November 25, 2017 and is therefore age indeterminate. 2. Minimal thrombus within the right popliteal vein which suggests minimal chronic thrombus. Electronically signed by: Wing Coughlin M.D. 01/27/2018 4:57 PM Dictated Date/Time: 01/27/2018 4:53 PM
--- NOTE | 2018-01-27 17:23 | DIAGNOSTIC IMAGING REPORT ---
R ART DOP DUPLEX LWR EXT UNI HISTORY: 72 years-old Female M79.[address] Jarvis at [phone] with resu acute right calf pain COMPARISON: Duplex venous Doppler study of the right lower extremity of same day TECHNIQUE: Multiple real-time sonographic images of the right lower extremity arterial structures were obtained assessing grayscale appearance, color and spectral flow. Segmental pressures about the right lower extremity were also obtained. FINDINGS: SEGMENTAL PRESSURES: Brachial-175 (index) Posterior tibial artery-114 (0.65) Dorsalis pedis-94 (0.54) Triphasic waveforms within the common femoral artery with peak systolic velocities measuring up to 163 cm/s. Moderate atherosclerosis noted within the common femoral artery. The profunda femoris is patent with triphasic waveforms. Elevated peak systolic velocities measuring up to 204 cm/s are noted within the superficial femoral artery. Mildly blunted biphasic waveforms are noted within the proximal SFA. Patent arterial stent within the popliteal artery demonstrating blunted monophasic waveforms with diminished peak systolic velocities measuring as low as 19 cm/s. No flow identified within the proximal or distal portions of the posterior tibial artery. Blunted monophasic waveforms are seen within the mid posterior tibial artery with diminished peak systolic velocity measuring up to 19 cm/s. Patent peroneal artery demonstrating monophasic waveforms. Monophasic waveforms are also noted within the anterior tibial and dorsalis pedis arteries with spectral broadening and blunted waveforms within the anterior tibial artery. IMPRESSION: 1. Patent popliteal arterial stent graft with blunted monophasic waveforms and diminished peak systolic velocities suggesting stent stenosis. 2. Inflow disease with elevated peak systolic velocities about the patent superficial femoral artery. 3. No flow identified within the proximal or distal posterior tibial artery with minimal flow seen within the midportion of the vessel suggesting high-grade stenosis. 4. Monophasic waveforms noted throughout the right lower extremity as above with decreased ankle-brachial indices. The above report was generated using voice recognition software. It may contain grammatical, syntax or spelling errors. Electronically signed by: Nathan Bell M.D. 01/27/2018 5:21 PM Dictated Date/Time: 01/27/2018 5:12 PM
== END | disposition home or self-care (01) ==
LOC: C.ULTR 15:24
PROVIDERS: ATTEND Family Medicine
DX: M79.661 Pain in right lower leg (principal)

== ENCOUNTER 2019-04-17 06:28 | Inpatient (IN) ==
--- NOTE | 2019-04-07 12:06 | Anesthesiology Consultation ---
Date of Service April 07, 2019 Assessment & Plan (1) Encounter for pre-operative examination: Chart Review Chart Review: Acceptable Risk for Surgery and Patient NOT seen in Pre Admission Testing will order ECG, BMP and CBC for AM of surgery unless patient gets this done today. Consults Requested none History Surgery Operation Date: 04/08/19 13:00 Proposed Procedures p Right Femoral Anterior Tibial Insitu [facility] - Wesley Umana MD Height/Weight Height: 5 ft 5 in Weight: 68.039 kg Allergies Allergy/AdvReac Type Severity Reaction Status Date / Time CHECO Inhibitors Allergy Unknown hives Verified 04/06/19 13:58 enflurane Allergy Unknown NAUSEA, Verified 04/06/19 13:58 jaundiced Iodinated Contrast Media Allergy Unknown HIVES - Verified 04/06/19 13:58 IVP DYE nickel Allergy Unknown REDNESS Verified 04/06/19 13:58 AND ITCHING liraglutide [From Victoza] AdvReac Unknown SEVERE Verified 04/06/19 13:58 NAUSEA Medications Home Medications Medication Instructions Recorded Confirmed Last Taken albuterol sulfate HFA 90 2 puffs INHALATION Q4H PRN #18 gm 12/08/18 04/06/19 Unknown mcg/actuation aerosol inhaler atorvastatin 80 mg tablet 80 mg PO QAM #90 tab 12/08/18 04/06/19 04/06/19 carvedilol 25 mg tablet 25 mg PO HS #90 tab 12/08/18 04/06/19 04/02/19 21:00 clopidogrel 75 mg tablet 75 mg PO QAM #90 tab 12/08/18 04/06/19 04/05/19 losartan 100 mg tablet 100 mg PO QAM #90 tab 12/08/18 04/06/19 04/06/19 nifedipine ER 30 mg 30 mg PO HS #90 tab 12/08/18 04/06/19 04/05/19 tablet,extended release budesonide-formoterol 2 puffs INHALATION BID PRN 12/31/18 04/06/19 Unknown carvedilol 12.5 mg PO QAM 12/31/18 04/06/19 04/06/19 insulin detemir (U- 100) 100 30 units SQ QPM #30 ml 02/18/19 04/06/19 04/05/19 unit/mL subcutaneous solution insulin lispro (U- 100) 100 See Rx Instructions .ROUTE 02/27/19 04/06/19 04/02/19 18:00 unit/mL subcutaneous solution .COMPLEX #40 ml 10 units spironolactone 25 mg tablet 25 mg PO BID #180 tab 03/02/19 04/06/19 04/06/19 cholecalciferol (vitamin D3) 1 unit PO DAILY 04/03/19 04/06/19 04/02/19 09:00 [Vitamin D3] oxycodone-acetaminophen [Percocet] 1 tab PO Q6H PRN 04/03/19 04/06/19 04/02/19 15:00 levothyroxine 175 mcg PO QAM 04/06/19 04/06/19 04/06/19 omeprazole 40 mg PO QAM 04/06/19 04/06/19 04/06/19 Past Medical History Medical History History of amputation of right great toe (Acute) PAD (peripheral artery disease) (Acute) Anemia CHRONIC; BASELINE HGB STABLE AT 9-10 RANGE PER CHART REVIEW Asthma CONTROLLED/LAST USE OF INHALER 1 YR AGO CREST syndrome Chronic kidney disease STAGE III Coronary artery disease NON-OBSTRUCTIVE Diverticular disease GERD (gastroesophageal reflux disease) History of MRSA infection [id number] RIGHT FOOT Hx of carotid stenosis BOTH SIDES - HAD CORRECTIVE SURGERY Hx of deep venous thrombosis 2017 R LE - NO LONGER ON XARALTO Hx of renal cell cancer R RENAL (2012) S/O R NEPHRECTOMY - NO RADIATION NO CHEMO Hyperlipidemia Hypertension Hypothyroidism Peripheral neuropathy BILATERAL FEET AND LEGS Peripheral vascular disease Renal artery stenosis RIGHT KIDNEY STENT ATTEMPTED 2010; S/P RIGHT NEPHRECTOMY 2012 Type II diabetes mellitus Ulcer of right midfoot CURRENT OPEN ULCER - DENIES KNOWN INFECTION OF Past Family History Family History Father Family hx of colon cancer Family history of diabetes mellitus Past Surgical History Surgical History H/O carotid endarterectomy LEFT (2002), RIGHT (1995) History of amputation of lesser toe of right foot MULTIPLE TOE AMPUTATIONS/I&D (RIGHT 4TH TOE, 3RD METATARSAL EXCISION) History of angioplasty MULTIPLE History of appendectomy OPEN History of atherectomy (Unknown) LEFT (02/2017) History of cardiac cath 2011= NO STENTS History of cataract surgery BILATERAL History of cholecystectomy OPEN History of colonoscopy History of endoscopic sinus surgery History of hysterectomy MERYL W/ BSO History of nephrectomy RIGHT (2012) History of procedure for peripheral vascular disease LEFT POPLITEAL S/P PERONEAL ARTERY BYPASS 2010; RLE ANGIO WITH INTERVENTION 06/2017 History of tonsillectomy Hx of lumpectomy LEFT BREAST (BENIGN) Nausea and vomiting after administration of anesthetic agent Revision amputation 11/2018. LMA #4 with SEVO. no issues. Social History Smoking Status: Never smoker Do You Dip or Chew Tobacco: No Hx Alcohol Use: No Hx Substance Use: No substance use type: prescription drug Testing Electrocardiogram Date: 02/27/18 NSR at 63bpm. PRWP, consider anterior NM vs. lead placement vs. LVH. No significant change compared to 02/15/17 per cardio. Echocardiogram 02/24/2019: Normal ventricular size with hyperdynamic systolic function. EF >70%. No RWMA. Moderate LVH No
--- NOTE | 2019-04-08 06:34 | History & Physical Report ---
Date of Service April 08, 2019 History of Present Illness Primary Care Provider: Agustín Jarvis MD Date of Service April 03, 2019 Assessment & Plan (1) Peripheral vascular disease: Patient is admitted for arteriography with possible intervention. I have discussed the risks options and benefits of the procedure with the patient. The patient understands the risks options and benefits and agrees to the procedure. History of Present Illness Chief Complaint: Open wound right foot, occluded femoral artery stents Primary Care Provider: Agustín Jarvis MD Patient is a 73 year old female who had stents of her right leg for non healing amputation of her right foot. The foot had almost healed but now has gotten worse since her stents have occluded. She is admitted today for reintervention of her right lower extremity. Allergies Allergy/AdvReac Type Severity Reaction Status Date / Time enflurane Allergy Intermediate sick, Verified 03/30/19 11:00 jaundiced Iodinated Contrast Media Allergy Intermediate HIVES - Verified 03/30/19 11:00 IVP DYE CHECO Inhibitors Allergy Mild hives Verified 03/30/19 11:00 nickel Allergy Mild REDNESS Verified 03/30/19 11:00 AND ITCHING liraglutide [From Victoza] AdvReac Intermediate SEVERE Verified 03/30/19 11:00 NAUSEA Home Medications Home Medications Medication Instructions Recorded Confirmed Type albuterol sulfate HFA 90 2 puffs INHALATION Q4H PRN #18 gm 12/08/18 03/31/19 Rx mcg/actuation aerosol inhaler atorvastatin 80 mg tablet 80 mg PO QAM #90 tab 12/08/18 03/31/19 Rx carvedilol 25 mg tablet 25 mg PO HS #90 tab 12/08/18 03/31/19 Rx clopidogrel 75 mg tablet 75 mg PO QAM #90 tab 12/08/18 03/31/19 Rx losartan 100 mg tablet 100 mg PO QAM #90 tab 12/08/18 03/31/19 Rx nifedipine ER 30 mg 30 mg PO HS #90 tab 12/08/18 03/31/19 Rx tablet,extended release omeprazole 40 mg capsule,delayed 40 mg PO DAILY #90 cap 12/08/18 03/31/19 Rx release budesonide-formoterol 2 puffs INHALATION BID PRN 12/31/18 03/31/19 History carvedilol 12.5 mg PO QAM 12/31/18 03/31/19 History levothyroxine 175 mcg tablet 175 mcg PO DAILY #30 tab 01/07/19 03/31/19 Rx insulin detemir (U- 100) 100 30 units SQ QPM #30 ml 02/18/19 03/31/19 Rx unit/mL subcutaneous solution insulin lispro (U- 100) 100 See Rx Instructions .ROUTE 02/27/19 03/31/19 Rx unit/mL subcutaneous solution .COMPLEX #40 ml spironolactone 25 mg tablet 25 mg PO BID #180 tab 03/02/19 03/31/19 Rx Past Med/Surg History Medical History Osteomyelitis REASON FOR UPCOMING SURGERY Asthma Hypertension Hyperlipidemia Peripheral neuropathy BILATERAL FEET AND LEGS Chronic kidney disease STAGE III Hypothyroidism GERD (gastroesophageal reflux disease) Diverticular disease Renal artery stenosis RIGHT KIDNEY STENT ATTEMPTED 2010; S/P RIGHT NEPHRECTOMY 2012 History of MRSA infection [id number] RIGHT FOOT PAD (peripheral artery disease) (Acute) Type II diabetes mellitus Coronary artery disease NON-OBSTRUCTIVE CREST syndrome Peripheral vascular disease Acquired claw toe of left foot (Acute) Diabetes mellitus with diabetic polyneuropathy (Acute) History of amputation of right great toe (Acute) Type 2 diabetes mellitus with diabetic peripheral angiopathy without gangrene (Acute) Anemia CHRONIC; BASELINE HGB STABLE AT 9-10 RANGE PER CHART REVIEW Hx of carotid stenosis BOTH SIDES - HAD CORRECTIVE SURGERY Hx of deep venous thrombosis 2018 R LE - NO LONGER ON XARALTO Hx of renal cell cancer R RENAL (2012) S/O R NEPHRECTOMY - NO RADIATION NO CHEMO Ulcer of right midfoot Surgical History History of tonsillectomy History of cataract surgery BILATERAL History of endoscopic sinus surgery History of colonoscopy History of cholecystectomy OPEN History of appendectomy OPEN History of nephrectomy RIGHT (2012) History of hysterectomy MERYL W/ BSO Hx of lumpectomy LEFT BREAST (BENIGN) Nausea and vomiting after administration of anesthetic agent History of cardiac cath 2011= NO STENTS History of amputation of lesser toe of right foot MULTIPLE TOE AMPUTATIONS/I&D (RIGHT 4TH TOE, 3RD METATARSAL EXCISION) History of atherectomy (Unknown) LEFT (02/2017) H/O carotid endarterectomy LEFT (2002), RIGHT (1995) History of procedure for peripheral vascular disease LEFT POPLITEAL S/P PERONEAL ARTERY BYPASS 2010; RLE ANGIO WITH INTERVENTION 06/2017 Family History Father Family hx of colon cancer Family history of diabetes mellitus Social History Preferred Language: [place] Communication Ability: Effective Visual Impairment: No Limitations Electric Wheelchair Repairer Required: No Beliefs That Will Affect Care: None marital status: Current Living Situation: Spouse current occupational status: retired Feels Safe at Home: Yes Smoking Status: Never smoker Second Hand Exposure: No ; Hx Alcohol Use: No Hx Substance Use: No during the past year weight has: remained stable Review of Systems All systems reviewed & are unremarkable except as noted in HPI & below Physical Exam Physical Exam: Constitutional: WD/WN, vitals as above Respiratory: normal respiratory effort, lungs clear to auscultation Cardiovascular: RRR, no murmur, no edema, weak doppler pulse right foot Gastrointestinal (Abdomen): normal bowel sounds, soft, nontender, no hepatosplenomegaly Musculoskeletal: open wound of lateral aspect of right foot Neurologic: patellar DTR's 2+ bilat, sensation intact and PERRL, EOMI, accommodation nl, no face palsy, no dysarthria Psychiatric: A+Ox3, euthymic affect Signed By: <Electronically signed by Wesley Umana MD> 04/03/19615 Created: 04/03/19610 The status of this report is Signed. Draft = Not yet reviewed or approved by Medical Physician. Signed = Reviewed and approved by Medical Physician. Allergies Allergy/AdvReac Type Severity Reaction Status Date / Time CHECO Inhibitors Allergy Unknown hives Verified 04/06/19 13:58 enflurane Allergy Unknown NAUSEA, Verified 04/06/19 13:58 jaundiced Iodinated Contrast Media Allergy Unknown HIVES - Verified 04/06/19 13:58 IVP DYE nickel Allergy Unknown REDNESS Verified 04/06/19 13:58 AND ITCHING liraglutide [From Victoza] AdvReac Unknown SEVERE Verified 04/06/19 13:58 NAUSEA Home Medications Home Medications Medication Instructions Recorded Confirmed Type albuterol sulfate HFA 90 2 puffs INHALATION Q4H PRN #18 gm 12/08/18 04/06/19 Rx mcg/actuation aerosol inhaler atorvastatin 80 mg tablet 80 mg PO QAM #90 tab 12/08/18 04/06/19 Rx carvedilol 25 mg tablet 25 mg PO HS #90 tab 12/08/18 04/06/19 Rx clopidogrel 75 mg tablet 75 mg PO QAM #90 tab 12/08/18 04/06/19 Rx losartan 100 mg tablet 100 mg PO QAM #90 tab 12/08/18 04/06/19 Rx nifedipine ER 30 mg 30 mg PO HS #90 tab 12/08/18 04/06/19 Rx tablet,extended release budesonide-formoterol 2 puffs INHALATION BID PRN 12/31/18 04/06/19 History carvedilol 12.5 mg PO QAM 12/31/18 04/06/19 History insulin detemir (U- 100) 100 30 units SQ QPM #30 ml 02/18/19 04/06/19 Rx unit/mL subcutaneous solution insulin lispro (U- 100) 100 See Rx Instructions .ROUTE 02/27/19 04/06/19 Rx unit/mL subcutaneous solution .COMPLEX #40 ml spironolactone 25 mg tablet 25 mg PO BID #180 tab 03/02/19 04/06/19 Rx cholecalciferol (vitamin D3) 1 unit PO DAILY 04/03/19 04/06/19 History [Vitamin D3] oxycodone-acetaminophen [Percocet] 1 tab PO Q6H PRN 04/03/19 04/06/19 History levothyroxine 175 mcg PO QAM 04/06/19 04/06/19 History omeprazole 40 mg PO QAM 04/06/19 04/06/19 History Past Med/Surg History Medical History History of amputation of right great toe (Acute) PAD (peripheral artery disease) (Acute) Anemia CHRONIC; BASELINE HGB STABLE AT 9-10 RANGE PER CHART REVIEW Asthma CONTROLLED/LAST USE OF INHALER 1 YR AGO CREST syndrome Chronic kidney disease STAGE III Coronary artery disease NON-OBSTRUCTIVE Diverticular disease GERD (gastroesophageal reflux disease) History of MRSA infection [id number] RIGHT FOOT Hx of carotid stenosis BOTH SIDES - HAD CORRECTIVE SURGERY Hx of deep venous thrombosis 2018 R LE - NO LONGER ON XARALTO Hx of renal cell cancer R RENAL (2012) S/O R NEPHRECTOMY - NO RADIATION NO CHEMO Hyperlipidemia Hypertension Hypothyroidism Peripheral neuropathy BILATERAL FEET AND LEGS Peripheral vascular disease Renal artery stenosis RIGHT KIDNEY STENT ATTEMPTED 2010; S/P RIGHT NEPHRECTOMY 2012 Type II diabetes mellitus Ulcer of right midfoot CURRENT OPEN ULCER - DENIES KNOWN INFECTION OF Surgical History H/O carotid endarterectomy LEFT (2002), RIGHT (1995) History of amputation of lesser toe of right foot MULTIPLE TOE AMPUTATIONS/I&D (RIGHT 4TH TOE, 3RD METATARSAL EXCISION) History of angioplasty MULTIPLE History of appendectomy OPEN History of atherectomy (Unknown) LEFT (02/2017) History of cardiac cath 2012= NO STENTS History of cataract surgery BILATERAL History of cholecystectomy OPEN History of colonoscopy History of endoscopic sinus surgery History of hysterectomy MERYL W/ BSO History of nephrectomy RIGHT (2012) History of procedure for peripheral vascular disease LEFT POPLITEAL S/P PERONEAL ARTERY BYPASS 2010; RLE ANGIO WITH INTERVENTION 06/2017 History of tonsillectomy Hx of lumpectomy LEFT BREAST (BENIGN) Nausea and vomiting after administration of anesthetic agent Family History Father Family hx of colon cancer Family history of diabetes mellitus Social History Preferred Language: [place] Communication Ability: Effective Visual Impairment: No Limitations Electric Wheelchair Repairer Required: No Beliefs That Will Affect Care: None marital status: Current Living Situation: Spouse current occupational status: retired Other Information That Helps Us Care for You: No Feels Safe at Home: Yes Smoking Status: Never smoker Do You Dip or Chew Tobacco: No ; Second Hand Exposure: No ; Hx Alcohol Use: No Hx Substance Use: No during the past year weight has: remained stable
--- NOTE | 2019-04-17 06:20 | History & Physical Report ---
Date of Service April 17, 2019 History of Present Illness Primary Care Provider: Agustín Jarvis MD Addendum April 08, 2019 06:34 Patient did undergo arteriography and was found to have severe infrapopliteal and popliteal occlusions. The stents were patent. Due to the location and extent of the occlusions, endovascular intervention could not be done. She is therefore admitted at this time for a bypass of the right lower extremity for worsening ulcers of her right foot. Rest of the H and P is unchanged. Addendum Signed By: <Electronically signed by Wesley Umana MD> 04/08/19635 Addendum Cosigned By: Created: 04/08/1911/20/635 Date of Service April 08, 2019 History of Present Illness Primary Care Provider: Agustín Jarvis MD Date of Service April 03, 2019 Assessment & Plan (1) Peripheral vascular disease: Patient is admitted for arteriography with possible intervention. I have discussed the risks options and benefits of the procedure with the patient. The patient understands the risks options and benefits and agrees to the procedure. History of Present Illness Chief Complaint: Open wound right foot, occluded femoral artery stents Primary Care Provider: Agustín Jarvis MD Patient is a 73 year old female who had stents of her right leg for non healing amputation of her right foot. The foot had almost healed but now has gotten worse since her stents have occluded. She is admitted today for reintervention of her right lower extremity. Allergies Allergy/AdvReac Type Severity Reaction Status Date / Time enflurane Allergy Intermediate sick, Verified 03/30/19 11:00 jaundiced Iodinated Contrast Media Allergy Intermediate HIVES - Verified 03/30/19 11:00 IVP DYE CHECO Inhibitors Allergy Mild hives Verified 03/30/19 11:00 nickel Allergy Mild REDNESS Verified 03/30/19 11:00 AND ITCHING liraglutide [From Victoza] AdvReac Intermediate SEVERE Verified 03/30/19 11:00 NAUSEA Home Medications Home Medications Medication Instructions Recorded Confirmed Type albuterol sulfate HFA 90 2 puffs INHALATION Q4H PRN #18 gm 12/08/18 03/31/19 Rx mcg/actuation aerosol inhaler atorvastatin 80 mg tablet 80 mg PO QAM #90 tab 12/08/18 03/31/19 Rx carvedilol 25 mg tablet 25 mg PO HS #90 tab 12/08/18 03/31/19 Rx clopidogrel 75 mg tablet 75 mg PO QAM #90 tab 12/08/18 03/31/19 Rx losartan 100 mg tablet 100 mg PO QAM #90 tab 12/08/18 03/31/19 Rx nifedipine ER 30 mg 30 mg PO HS #90 tab 12/08/18 03/31/19 Rx tablet,extended release omeprazole 40 mg capsule,delayed 40 mg PO DAILY #90 cap 12/08/18 03/31/19 Rx release budesonide-formoterol 2 puffs INHALATION BID PRN 12/31/18 03/31/19 History carvedilol 12.5 mg PO QAM 12/31/18 03/31/19 History levothyroxine 175 mcg tablet 175 mcg PO DAILY #30 tab 01/07/19 03/31/19 Rx insulin detemir (U- 100) 100 30 units SQ QPM #30 ml 02/18/19 03/31/19 Rx unit/mL subcutaneous solution insulin lispro (U- 100) 100 See Rx Instructions .ROUTE 02/27/19 03/31/19 Rx unit/mL subcutaneous solution .COMPLEX #40 ml spironolactone 25 mg tablet 25 mg PO BID #180 tab 03/02/19 03/31/19 Rx Past Med/Surg History Medical History Osteomyelitis REASON FOR UPCOMING SURGERY Asthma Hypertension Hyperlipidemia Peripheral neuropathy BILATERAL FEET AND LEGS Chronic kidney disease STAGE III Hypothyroidism GERD (gastroesophageal reflux disease) Diverticular disease Renal artery stenosis RIGHT KIDNEY STENT ATTEMPTED 2010; S/P RIGHT NEPHRECTOMY 2012 History of MRSA infection [id number] RIGHT FOOT PAD (peripheral artery disease) (Acute) Type II diabetes mellitus Coronary artery disease NON-OBSTRUCTIVE CREST syndrome Peripheral vascular disease Acquired claw toe of left foot (Acute) Diabetes mellitus with diabetic polyneuropathy (Acute) History of amputation of right great toe (Acute) Type 2 diabetes mellitus with diabetic peripheral angiopathy without gangrene (Acute) Anemia CHRONIC; BASELINE HGB STABLE AT 9-10 RANGE PER CHART REVIEW Hx of carotid stenosis BOTH SIDES - HAD CORRECTIVE SURGERY Hx of deep venous thrombosis 2018 R LE - NO LONGER ON XARALTO Hx of renal cell cancer R RENAL (2012) S/O R NEPHRECTOMY - NO RADIATION NO CHEMO Ulcer of right midfoot Surgical History History of tonsillectomy History of cataract surgery BILATERAL History of endoscopic sinus surgery History of colonoscopy History of cholecystectomy OPEN History of appendectomy OPEN History of nephrectomy RIGHT (2012) History of hysterectomy MERYL W/ BSO Hx of lumpectomy LEFT BREAST (BENIGN) Nausea and vomiting after administration of anesthetic agent History of cardiac cath 2011= NO STENTS History of amputation of lesser toe of right foot MULTIPLE TOE AMPUTATIONS/I&D (RIGHT 4TH TOE, 3RD METATARSAL EXCISION) History of atherectomy (Unknown) LEFT (02/2017) H/O carotid endarterectomy LEFT (2002), RIGHT (1995) History of procedure for peripheral vascular disease LEFT POPLITEAL S/P PERONEAL ARTERY BYPASS 2010; RLE ANGIO WITH INTERVENTION 06/2017 Family History Father Family hx of colon cancer Family history of diabetes mellitus Social History Preferred Language: Turkmen Communication Ability: Effective Visual Impairment: No Limitations Marketing Analytics Analyst Required: No Beliefs That Will Affect Care: None marital status: Current Living Situation: Spouse current occupational status: retired Feels Safe at Home: Yes Smoking Status: Never smoker Second Hand Exposure: No ; Hx Alcohol Use: No Hx Substance Use: No during the past year weight has: remained stable Review of Systems All systems reviewed & are unremarkable except as noted in HPI & below Physical Exam Physical Exam: Constitutional: WD/WN, vitals as above Respiratory: normal respiratory effort, lungs clear to auscultation Cardiovascular: RRR, no murmur, no edema, weak doppler pulse right foot Gastrointestinal (Abdomen): normal bowel sounds, soft, nontender, no hepatosplenomegaly Musculoskeletal: open wound of lateral aspect of right foot Neurologic: patellar DTR's 2+ bilat, sensation intact and PERRL, EOMI, accommodation nl, no face palsy, no dysarthria Psychiatric: A+Ox3, euthymic affect Signed By: <Electronically signed by Wesley Umana MD> 04/03/19615 Created: 04/03/19610 The status of this report is Signed. Draft = Not yet reviewed or approved by Medical Physician. Signed = Reviewed and approved by Medical Physician. Allergies Allergy/AdvReac Type Severity Reaction Status Date / Time CHECO Inhibitors Allergy Unknown hives Verified 04/06/19 13:58 enflurane Allergy Unknown NAUSEA, Verified 04/06/19 13:58 jaundiced Iodinated Contrast Media Allergy Unknown HIVES - Verified 04/06/19 13:58 IVP DYE nickel Allergy Unknown REDNESS Verified 04/06/19 13:58 AND ITCHING liraglutide [From Victoza] AdvReac Unknown SEVERE Verified 04/06/19 13:58 NAUSEA Home Medications Home Medications Medication Instructions Recorded Confirmed Type albuterol sulfate HFA 90 2 puffs INHALATION Q4H PRN #18 gm 12/08/18 04/06/19 Rx mcg/actuation aerosol inhaler atorvastatin 80 mg tablet 80 mg PO QAM #90 tab 12/08/18 04/06/19 Rx carvedilol 25 mg tablet 25 mg PO HS #90 tab 12/08/18 04/06/19 Rx clopidogrel 75 mg tablet 75 mg PO QAM #90 tab 12/08/18 04/06/19 Rx losartan 100 mg tablet 100 mg PO QAM #90 tab 12/08/18 04/06/19 Rx nifedipine ER 30 mg 30 mg PO HS #90 tab 12/08/18 04/06/19 Rx tablet,extended release budesonide-formoterol 2 puffs INHALATION BID PRN 12/31/18 04/06/19 History carvedilol 12.5 mg PO QAM 12/31/18 04/06/19 History insulin detemir (U- 100) 100 30 units SQ QPM #30 ml 02/18/19 04/06/19 Rx unit/mL subcutaneous solution insulin lispro (U- 100) 100 See Rx Instructions .ROUTE 02/27/19 04/06/19 Rx unit/mL subcutaneous solution .COMPLEX #40 ml spironolactone 25 mg tablet 25 mg PO BID #180 tab 03/02/19 04/06/19 Rx cholecalciferol (vitamin D3) 1 unit PO DAILY 04/03/19 04/06/19 History [Vitamin D3] oxycodone-acetaminophen [Percocet] 1 tab PO Q6H PRN 04/03/19 04/06/19 History levothyroxine 175 mcg PO QAM 04/06/19 04/06/19 History omeprazole 40 mg PO QAM 04/06/19 04/06/19 History Past Med/Surg History Medical History History of amputation of right great toe (Acute) PAD (peripheral artery disease) (Acute) Anemia CHRONIC; BASELINE HGB STABLE AT 9-10 RANGE PER CHART REVIEW Asthma CONTROLLED/LAST USE OF INHALER 1 YR AGO CREST syndrome Chronic kidney disease STAGE III Coronary artery disease NON-OBSTRUCTIVE Diverticular disease GERD (gastroesophageal reflux disease) History of MRSA infection [id number] RIGHT FOOT Hx of carotid stenosis BOTH SIDES - HAD CORRECTIVE SURGERY Hx of deep venous thrombosis 2018 R LE - NO LONGER ON XARALTO Hx of renal cell cancer R RENAL (2012) S/O R NEPHRECTOMY - NO RADIATION NO CHEMO Hyperlipidemia Hypertension Hypothyroidism Peripheral neuropathy BILATERAL FEET AND LEGS Peripheral vascular disease Renal artery stenosis RIGHT KIDNEY STENT ATTEMPTED 2010; S/P RIGHT NEPHRECTOMY 2012 Type II diabetes mellitus Ulcer of right midfoot CURRENT OPEN ULCER - DENIES KNOWN INFECTION OF Surgical History H/O carotid endarterectomy LEFT (2002), RIGHT (1995) History of amputation of lesser toe of right foot MULTIPLE TOE AMPUTATIONS/I&D (RIGHT 4TH TOE, 3RD METATARSAL EXCISION) History of angioplasty MULTIPLE History of appendectomy OPEN History of atherectomy (Unknown) LEFT (02/2017) History of cardiac cath 2011= NO STENTS History of cataract surgery BILATERAL History of cholecystectomy OPEN History of colonoscopy History of endoscopic sinus surgery History of hysterectomy MERYL W/ BSO History of nephrectomy RIGHT (2012) History of procedure for peripheral vascular disease LEFT POPLITEAL S/P PERONEAL ARTERY BYPASS 2010; RLE ANGIO WITH INTERVENTION 06/2017 History of tonsillectomy Hx of lumpectomy LEFT BREAST (BENIGN) Nausea and vomiting after administration of anesthetic agent Family History Father Family hx of colon cancer Family history of diabetes mellitus Social History Preferred Language: Turkmen Communication Ability: Effective Visual Impairment: No Limitations Marketing Analytics Analyst Required: No Beliefs That Will Affect Care: None marital status: Current Living Situation: Spouse current occupational status: retired Other Information That Helps Us Care for You: No Feels Safe at Home: Yes Smoking Status: Never smoker Do You Dip or Chew Tobacco: No ; Second Hand Exposure: No ; Hx Alcohol Use: No Hx Substance Use: No during the past year weight has: remained stable Signed By: <Electronically signed by Wesley Umana MD> 04/08/19633 Created: 04/08/19 0633 The status of this report is Signed. Draft = Not yet reviewed or approved by Medical Physician. Signed = Reviewed and approved by Medical Physician. Allergies Allergy/AdvReac Type Severity Reaction Status Date / Time CHECO Inhibitors Allergy Unknown hives Verified 04/06/19 13:58 enflurane Allergy Unknown NAUSEA, Verified 04/06/19 13:58 jaundiced Iodinated Contrast Media Allergy Unknown HIVES - Verified 04/06/19 13:58 IVP DYE nickel Allergy Unknown REDNESS Verified 04/06/19 13:58 AND ITCHING liraglutide [From Victoza] AdvReac Unknown SEVERE Verified 04/06/19 13:58 NAUSEA Home Medications Home Medications Medication Instructions Recorded Confirmed Type albuterol sulfate 90 mcg/actuation 2 puffs INHALATION Q4H PRN #18 gm 12/08/18 04/06/19 Rx aerosol inhaler atorvastatin 80 mg tablet 80 mg PO QAM #90 tab 12/08/18 04/06/19 Rx carvedilol 25 mg tablet 25 mg PO HS #90 tab 12/08/18 04/06/19 Rx clopidogrel 75 mg tablet 75 mg PO QAM #90 tab 12/08/18 04/06/19 Rx losartan 100 mg tablet 100 mg PO QAM #90 tab 12/08/18 04/06/19 Rx nifedipine 30 mg tablet,extended 30 mg PO HS #90 tab 12/08/18 04/06/19 Rx release budesonide-formoterol 2 puffs INHALATION BID PRN 12/31/18 04/06/19 History carvedilol 12.5 mg PO QAM 12/31/18 04/06/19 History insulin detemir U-100 100) 100 30 units SQ QPM #30 ml 02/18/19 04/06/19 Rx unit/mL subcutaneous solution insulin lispro 100) 100 unit/mL See Rx Instructions .ROUTE 02/27/19 04/06/19 Rx subcutaneous solution .COMPLEX #40 ml spironolactone 25 mg tablet 25 mg PO BID #180 tab 03/02/19 04/06/19 Rx cholecalciferol (vitamin D3) 1 unit PO DAILY 04/03/19 04/06/19 History [Vitamin D3] oxycodone-acetaminophen [Percocet] 1 tab PO Q6H PRN 04/03/19 04/06/19 History omeprazole 40 mg PO QAM 04/06/19 04/06/19 History levothyroxine 175 mcg tablet 175 mcg PO QAM #90 tab 04/09/19 Rx Past Med/Surg History Medical History History of amputation of right great toe (Acute) PAD (peripheral artery disease) (Acute) Anemia CHRONIC; BASELINE HGB STABLE AT 9-10 RANGE PER CHART REVIEW Asthma CONTROLLED/LAST USE OF INHALER 1 YR AGO CREST syndrome Chronic kidney disease STAGE III Coronary artery disease NON-OBSTRUCTIVE Diverticular disease GERD (gastroesophageal reflux disease) History of MRSA infection [id number] RIGHT FOOT Hx of carotid stenosis BOTH SIDES - HAD CORRECTIVE SURGERY Hx of deep venous thrombosis 2017 R LE - NO LONGER ON XARALTO Hx of renal cell cancer R RENAL (2012) S/O R NEPHRECTOMY - NO RADIATION NO CHEMO Hyperlipidemia Hypertension Hypothyroidism Peripheral neuropathy BILATERAL FEET AND LEGS Peripheral vascular disease Renal artery stenosis RIGHT KIDNEY STENT ATTEMPTED 2010; S/P RIGHT NEPHRECTOMY 2012 Type II diabetes mellitus Ulcer of right midfoot CURRENT OPEN ULCER - DENIES KNOWN INFECTION OF Surgical History H/O carotid endarterectomy LEFT (2002), RIGHT (1995) History of amputation of lesser toe of right foot MULTIPLE TOE AMPUTATIONS/I&D (RIGHT 4TH TOE, 3RD METATARSAL EXCISION) History of angioplasty MULTIPLE History of appendectomy OPEN History of atherectomy (Unknown) LEFT (02/2017) History of cardiac cath 2012= NO STENTS History of cataract surgery BILATERAL History of cholecystectomy OPEN History of colonoscopy History of endoscopic sinus surgery History of hysterectomy MERYL W/ BSO History of nephrectomy RIGHT (2012) History of procedure for peripheral vascular disease LEFT POPLITEAL S/P PERONEAL ARTERY BYPASS 2010; RLE ANGIO WITH INTERVENTION 06/2017 History of tonsillectomy Hx of lumpectomy LEFT BREAST (BENIGN) Nausea and vomiting after administration of anesthetic agent Family History Father Family hx of colon cancer Family history of diabetes mellitus Social History Preferred Language: Turkmen Communication Ability: Effective Visual Impairment: No Limitations Marketing Analytics Analyst Required: No Beliefs That Will Affect Care: None marital status: Current Living Situation: Spouse current occupational status: retired Other Information That Helps Us Care for You: No Feels Safe at Home: Yes Smoking Status: Never smoker Do You Dip or Chew Tobacco: No ; Second Hand Exposure: No ; Hx Alcohol Use: No Hx Substance Use: No during the past year weight has: remained stable
[~2019-04-17 06:28] MED LIST changes: -ATOR-26 PO; -CARV12.52 PO; +CEFAZOLIN 1000MG 1,000 MG/7.5 ML SYR IV SCH; -CHOL1000 PO; -CLOP1TAB15 PO; -DOCU-94 PO; -HYDR25TA4 PO; +HYDROCORTISONE SOD 100 MG in SYRINGE 0 ML IV SCH; +HYDROCORTISONE SOD SUCCINATE 100 MG/2 ML VIAL IV SCH; -INSU100I SC; -LEVO112T4 PO; -LOSA1TAB38 PO; +LR 15ML/HR IV SCH; -LVMI SC; -MISCCAP80 PO; -NIFE30TA83 PO; -OXYC-737 PO; -PRLSR20 PO; -SENN1TAB77 PO; +SODIUM CHLORIDE 0.9% 1000ML IV SCH; -SPIR25TA PO; -SYMIN160 INH; -VNTHFA/IN INH; +raNITIdine HCl 25 MG/ML VIAL IV SCH
[2019-04-17 07:14] LABS: Hematocrit (blood only) 33.5 % (37-47); Hemoglobin 10.8 g/dL (12.0-16.0); Mean Corpuscular Hemoglobin 28.3 pg (25-34); Mean Corpuscular Volume 87.9 fL (80-100); Mean Platelet Volume 10.5 fL (7.4-10.4); Platelet Count 210 K/uL (130-400); RDW Coefficient of Variation 14.3 % (11.5-14.5); RDW Standard Deviation 45.7 fL (36.4-46.3); Red Blood Count 3.81 M/uL (4.2-5.4); White Blood Count 10.49 K/uL (4.8-10.8)
[2019-04-17] MEDS ORDERED: ONDANSETRON INJ 2 MG/ML 2 ML VIAL ONE (07:17)
[2019-04-17] MEDS ORDERED: GLYCOPYRROLATE 0.2 MG/ML VIAL ONE (07:17)
[2019-04-17] MEDS ORDERED: DEXAMETHASONE SOD INJ 4 MG/ML VIAL ONE (07:17)
[2019-04-17] MEDS ORDERED: ROCURONIUM BROMIDE 10 MG/ML 5 ML VIAL ONE ×2 (07:17→14:17)
[2019-04-17] MEDS ORDERED: LIDOCAINE HCL 2% 2 ML VIAL/AMP(20MG/ML) INFIL ONE (07:17)
[2019-04-17] MEDS ORDERED: fentaNYL citrate 100 MCG/2 ML VIAL ONE ×3 (07:17→14:10)
[2019-04-17] MEDS ORDERED: PROPOFOL IV EMULSION 10 MG/ML 20 ML VIAL IV ONE (07:17)
[2019-04-17] MEDS ORDERED: NEOSTIGMINE METHYLSULFATE 5 MG/5 ML SYR ONE (07:17)
[2019-04-17 07:23] LABS: Mean Corpuscular Hgb Conc 32.2 g/dL (32-36)
[2019-04-17] MEDS ORDERED: PAPAVERINE HCL INJ 30 MG/ML 2 ML VIAL ONE (07:23)
[2019-04-17] MEDS ORDERED: HEPARIN (PORCINE) 1000 UNIT/ML 10 ML (CATH LAB USE ONLY) ONE (07:23)
[2019-04-17] MEDS ORDERED: IODIXANOL (VISIPAQUE) 270 MG/ML 50ML ONE (07:24)
[2019-04-17] MEDS ORDERED: LIDOCAINE HCL 1% 20 ML VIAL ONE (07:24)
[2019-04-17] MEDS ORDERED: CEFAZOLIN 250 MG/ML 1 GM VIAL ONE ×2 (07:24→14:08)
[2019-04-17] MEDS ORDERED: GELATIN SPONGE SZ 100 ONE (07:24)
[2019-04-17] MEDS ORDERED: THROMBIN FOR SOLN 20000 UNIT KIT ONE (07:25)
[2019-04-17] MEDS ORDERED: BUPIVACAINE 0.5 % 5 MG/1 ML MPF 30ML VIAL ONE (07:25)
[2019-04-17 07:27] LABS: INR 1.1 (0.9-1.1); Partial Thromboplastin Time 27.4 Seconds (21.0-31.0)
[2019-04-17 07:44] LABS: BUN Creatinine Ratio 21.9 (10-20); Calcium 9.5 mg/dl (8.5-10.1); Creatinine Clr Calc Pharmacy 40.1 ml/min; Est GFR (African American) 55.6; Potassium 4.3 mmol/L (3.5-5.1)
--- NOTE | 2019-04-17 07:46 | History & Physical Bridge Note ---
Date of Service April 17, 2019 History & Physical Bridge Note I have examined the patient, reviewed the History & Physical and in the interval since the performance of the History & Physical I have noted the following changes of clinical significance: no changes noted
[2019-04-17] MEDS ORDERED: PROMETHAZINE HCL 12.5 MG in SODIUM CHLORIDE 0.9% 50 ML IV PRN (08:52)
[2019-04-17] MEDS ORDERED: FLUMAZENIL 0.1 MG/1 ML 10 ML VIAL IV PRN (08:52)
[2019-04-17] MEDS ORDERED: NALOXONE HCL 0.4 MG/1 ML VIAL/CARP IV PRN (08:52)
[2019-04-17] MEDS ORDERED: LABETALOL HCL IV 5 MG/ML 20ML IV PRN (08:52)
[2019-04-17] MEDS ORDERED: ATROPINE SULFATE 0.1 MG/ML 10ML SYR IV PRN (08:52)
[2019-04-17] MEDS ORDERED: ePHEDrine sulfate 50 MG/ML AMP IV PRN (08:52)
[2019-04-17] MEDS ORDERED: ONDANSETRON INJ 2 MG/ML 2 ML VIAL IV PRN ×2 (08:52→16:23)
[2019-04-17] MEDS ORDERED: HEPARIN SOD (PORCINE) 1000 UNIT/ML 10 ML VIAL ONE ×2 (10:46→12:47)
--- NOTE | 2019-04-17 13:46 | Post Operative Brief Note ---
Immediate Post Op Note v1 Date of Surgery April 17, 2019 Pre & Post Diagnosis Operation Date: 04/17/19 08:00 Pre-Op Diagnosis: Non healing ulcer right foot, right popliteal and infrapopliteal artery occlusion Post-Op Diagnosis: Non healing ulcer right foot, right popliteal and infrapopliteal artery occlusion I identified the patient and participated in the time-out.: Yes Procedure Operation Date: 04/17/19 08:00 Actual Procedures p Right Common Femoral Endartectomy with patch, Right Femoral to Distal Anterior Tibial Insitu Bybass, Insertion of Stent Distal Bypass(Right) - Wesley Umana MD Surgeon Wesley Umana MD Trim Setter Devante,PAC Estimated Blood Loss 250 Findings Consistent with Post-Op Diagnosis Drains Lassiter Catheter Anesthesia Type General Complications none Disposition Accompanied Patient To Recovery: No Disposition: Recovery Room
[2019-04-17] MEDS: fentaNYL citrate 100 MCG/2 ML VIAL IV PRN ×4 (14:10→14:25)
[2019-04-17] MEDS ORDERED: HYDROmorphone INJ 1 MG/ML SYRINGE ONE (14:10)
[2019-04-17] MEDS: HYDROmorphone INJ 1 MG/ML SYRINGE IV PRN ×8 (14:30→15:05)
[2019-04-17 14:58] LABS: Hemoglobin 8.9 g/dL (12.0-16.0); Immature Granulocytes # (auto) 0.04 K/uL (0.00-0.02); Immature Granulocytes % (auto) 0.4 %; Lymphocytes # (auto) 1.33 K/uL (1.2-3.4); Mean Corpuscular Volume 87.9 fL (80-100); Mean Platelet Volume 10.2 fL (7.4-10.4); Monocytes # (auto) 0.12 K/uL (0.11-0.59); Monocytes % (auto) 1.1 %; Neutrophils # (auto) 9.61 K/uL (1.4-6.5); Neutrophils % (auto) 86.5 %; Platelet Count 177 K/uL (130-400); RDW Coefficient of Variation 14.2 % (11.5-14.5); RDW Standard Deviation 45.7 fL (36.4-46.3); Red Blood Count 3.07 M/uL (4.2-5.4)
[2019-04-17] MEDS: HYDROmorphone INJ 0.5 MG/0.5 ML SYR IV PRN ×3 (15:10→15:20)
--- NOTE | 2019-04-17 15:33 | Anesthesiology Progress Note ---
Date of Service April 17, 2019 Anesthesia Post Procedure Vital Signs Vital Signs: Temp Pulse Pulse Resp BP Pulse Ox 04/17/19 15:20 36.8 C 60 16 123/51 L 100 04/17/19 15:10 60 16 131/59 L 100 04/17/19 15:00 58 L 16 148/58 H 100 04/17/19 14:50 60 16 157/65 H 100 04/17/19 14:40 59 L 16 161/60 H 100 04/17/19 14:30 60 14 145/62 H 100 04/17/19 14:20 60 14 154/58 H 100 04/17/19 14:10 61 14 169/63 H 100 04/17/19 14:02 36.5 C 63 14 171/63 H 100 04/17/19 07:08 36.8 C 55 L 18 148/65 H 97 Pain Intensity Right Foot: Pain Intensity: 4 Transfer of Care Handoff Completed per policy Notes Mental Status: alert / awake / arousable Patient Amnestic to Procedure: Yes Nausea / Vomiting: adequately controlled Pain: adequately controlled Airway Patency, RR, SpO2: stable & adequate BP & HR: stable & adequate Hydration State: stable & adequate Anesthetic Complications: no major complications apparent
[2019-04-17] MEDS ORDERED: ALBUTEROL HFA 8 GM INHALER INH PRN (16:23)
[2019-04-17] MEDS ORDERED: BUDESONIDE/FORMOTEROL FUMARATE 160/4.5 60 PUFFS/INHALER INH PRN (16:23)
[2019-04-17] MEDS: MoRPHine SULFATE 4 MG/ML 1 ML CARP\\VIAL IV PRN ×3 (17:28→22:18)
[2019-04-17] MEDS ORDERED: GLUCOSE 40% GEL 15 GM TUBE PO PRN (17:30)
[2019-04-17] MEDS ORDERED: GLUCOSE 10 TABS/TUBE PO PRN (17:30)
[2019-04-17] MEDS ORDERED: GLUCAGON FOR INJ 1 MG VIAL IM PRN (17:30)
[2019-04-17] MEDS ORDERED: DEXTROSE 50% 50 ML SYRINGE IV PRN (17:30)
[2019-04-17] MEDS: SODIUM CHLORIDE 0.9% 1000ML 1,000 ML IV SCH (17:32)
[2019-04-17] MEDS: INSULIN ASPART 100 UNITS/ML 3 ML PEN SC SCH ×2 (18:04→21:00)
[2019-04-17] MEDS: OXYCODONE/ACETAMINOPHEN 5mg/325mg TAB PO PRN ×2 (18:10→23:35)
[2019-04-17] MEDS: CEFAZOLIN 1000MG 1,000 MG/7.5 ML SYR IV SCH (19:03)
[2019-04-17] MEDS: SPIRONOLACTONE 25 MG TAB PO SCH (20:11)
[2019-04-17] MEDS: ATORVASTATIN 40 MG TAB PO SCH (20:11)
[2019-04-17] MEDS: NIFEdipine EXTENDED REL 30 MG TABCR PO SCH (20:11)
[2019-04-17] MEDS: carvediloL 25 MG TAB PO SCH (20:11)
[2019-04-17] MEDS: INSULIN DETEMIR FLEXPEN/FLEX TOUCH 100 UNITS/ML 3ML SQ SCH (21:00)
[2019-04-18] MEDS: MoRPHine SULFATE 4 MG/ML 1 ML CARP\\VIAL IV PRN ×5 (00:11→08:45)
[2019-04-18] MEDS: SODIUM CHLORIDE 0.9% 1000ML 1,000 ML IV SCH (01:30)
[2019-04-18] MEDS: CEFAZOLIN 1000MG 1,000 MG/7.5 ML SYR IV SCH (02:11)
[2019-04-18] MEDS: OXYCODONE/ACETAMINOPHEN 5mg/325mg TAB PO PRN ×3 (05:27→23:36)
[2019-04-18] MEDS ORDERED: INFLUENZA ADMINISTRATION CHARGE ONE (05:30)
[2019-04-18] MEDS ORDERED: INFLUENZA VACCINE HIGH DOSE 65+ 0.5 ML SYR IM ONE (05:30)
[2019-04-18] MEDS: LEVOTHYROXINE SODIUM 175 MCG TABLET PO SCH (06:26)
[2019-04-18 06:47] LABS: Hematocrit (blood only) 18.2 % (37-47); Mean Corpuscular Volume 87.9 fL (80-100); Mean Platelet Volume 10.2 fL (7.4-10.4); Platelet Count 210 K/uL (130-400); RDW Coefficient of Variation 14.4 % (11.5-14.5); RDW Standard Deviation 46.4 fL (36.4-46.3); Red Blood Count 2.07 M/uL (4.2-5.4); White Blood Count 10.16 K/uL (4.8-10.8)
[2019-04-18] MEDS ORDERED: SODIUM CHLORIDE 0.9% 250 ML IV PRN (06:52)
[2019-04-18 07:02] LABS: Basophils # (auto) 0.01 K/uL (0-0.2); Basophils % (auto) 0.1 %; Eosinophils # (auto) 0.01 K/uL (0-0.5); Eosinophils % (auto) 0.1 %; Immature Granulocytes # (auto) 0.03 K/uL (0.00-0.02); Immature Granulocytes % (auto) 0.3 %; Lymphocytes # (auto) 2.64 K/uL (1.2-3.4); Monocytes # (auto) 1.02 K/uL (0.11-0.59); Neutrophils # (auto) 6.45 K/uL (1.4-6.5); Neutrophils % (auto) 63.5 %; RBC Morphology Unremarkable
[2019-04-18 07:12] LABS: BUN Creatinine Ratio 25.2 (10-20); Calcium 7.7 mg/dl (8.5-10.1); Creatinine Clr Calc Pharmacy 36.9 ml/min; Est GFR (African American) 50.3; Est GFR (Non-African American) 43.4; Potassium 4.6 mmol/L (3.5-5.1)
--- NOTE | 2019-04-18 07:18 | Surgery Progress Note ---
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 Hemoglobin was low today. This was secondary to blood loss anemia from surgery. She will be transfused 2 units of blood today. We will repeat the hemoglobin in the a.m. Subjective Patient is complaining of some incisional pain in the right lower extremity. It was worse during the night but improving this morning. It is responding to the pain medication. Physical Exam Physical Exam: On exam the dressings are intact in the lower extremities. There there is not been any significant bleeding. There is a Doppler signal heard in the dorsalis pedis of the right foot. Constitutional: WD/WN, vitals as above Results & Data Vital Signs (Past 12 Hours) Vital Signs Temp Pulse Resp BP Pulse Ox 04/18/19 04:27 36.7 C 79 15 134/63 95 04/17/19 23:24 36.6 C 79 18 147/68 H 95
[2019-04-18] MEDS: SPIRONOLACTONE 25 MG TAB PO SCH ×2 (08:43→21:01)
[2019-04-18] MEDS: CLOPIDOGREL BISULFATE 75 MG TAB PO SCH (08:44)
[2019-04-18] MEDS: carvediloL 12.5 MG TAB PO SCH (08:44)
[2019-04-18] MEDS: LOSARTAN POTASSIUM 50 MG TAB PO SCH (08:44)
[2019-04-18] MEDS: PANTOprazole 40 MG TAB PO SCH (08:44)
[2019-04-18] MEDS: CHOLECALCIFEROL 1,000 UNITS TAB PO SCH (08:45)
[2019-04-18] MEDS: INSULIN ASPART 100 UNITS/ML 3 ML PEN SC SCH ×4 (08:59→21:04)
[2019-04-18] MEDS: ATORVASTATIN 40 MG TAB PO SCH (21:01)
[2019-04-18] MEDS: NIFEdipine EXTENDED REL 30 MG TABCR PO SCH (21:01)
[2019-04-18] MEDS: carvediloL 25 MG TAB PO SCH (21:01)
[2019-04-18] MEDS: INSULIN DETEMIR FLEXPEN/FLEX TOUCH 100 UNITS/ML 3ML SQ SCH (21:02)
[2019-04-19] MEDS: LEVOTHYROXINE SODIUM 175 MCG TABLET PO SCH (05:34)
[2019-04-19] MEDS: OXYCODONE/ACETAMINOPHEN 5mg/325mg TAB PO PRN ×3 (05:35→21:36)
[2019-04-19] MEDS: MoRPHine SULFATE 4 MG/ML 1 ML CARP\\VIAL IV PRN ×3 (07:42→23:48)
[2019-04-19] MEDS ORDERED: SODIUM CHLORIDE 0.9% 250 ML IV PRN (08:33)
--- NOTE | 2019-04-19 08:33 | Surgery Progress Note ---
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 Wound shows no sign of necrosis. Her acute blood loss anemia still persists after 2 units. Hemoglobin today is 7.8 and we will transfuse her with another 2 units. Subjective Patient is complaining of calf discomfort. Is controlled with the morphine. She denies any pain in her foot. Physical Exam Physical Exam: Incisions are well approximated. There is a Doppler signal heard in the right foot. The foot wound itself has good granulation tissue and may have decreased in size. Edges are viable. Constitutional: WD/WN, vitals as above Results & Data Vital Signs (Past 12 Hours) Vital Signs Temp Pulse Resp BP Pulse Ox 04/19/19 07:20 37 C 60 16 104/57 L 92 04/18/19 22:55 37.0 C 64 17 153/64 H 91 04/18/19 21:01 143/69 H
[2019-04-19] MEDS: INSULIN ASPART 100 UNITS/ML 3 ML PEN SC SCH ×4 (09:40→21:38)
[2019-04-19] MEDS: SPIRONOLACTONE 25 MG TAB PO SCH ×2 (09:41→21:46)
[2019-04-19] MEDS: PANTOprazole 40 MG TAB PO SCH (09:41)
[2019-04-19] MEDS: CHOLECALCIFEROL 1,000 UNITS TAB PO SCH (09:42)
[2019-04-19] MEDS: CLOPIDOGREL BISULFATE 75 MG TAB PO SCH (09:42)
[2019-04-19] MEDS: carvediloL 12.5 MG TAB PO SCH (13:00)
[2019-04-19] MEDS: LOSARTAN POTASSIUM 50 MG TAB PO SCH (13:00)
[2019-04-19] MEDS: INSULIN DETEMIR FLEXPEN/FLEX TOUCH 100 UNITS/ML 3ML SQ SCH (21:38)
[2019-04-19] MEDS: ATORVASTATIN 40 MG TAB PO SCH (21:46)
[2019-04-19] MEDS: carvediloL 25 MG TAB PO SCH (21:46)
[2019-04-19] MEDS: NIFEdipine EXTENDED REL 30 MG TABCR PO SCH (21:46)
[2019-04-20 05:27] LABS: Basophils # (auto) 0.01 K/uL (0-0.2); Basophils % (auto) 0.1 %; Eosinophils # (auto) 0.07 K/uL (0-0.5); Eosinophils % (auto) 0.8 %; Hematocrit (blood only) 29.2 % (37-47); Hemoglobin 9.8 g/dL (12.0-16.0); Immature Granulocytes # (auto) 0.02 K/uL (0.00-0.02); Immature Granulocytes % (auto) 0.2 %; Lymphocytes # (auto) 1.92 K/uL (1.2-3.4); Lymphocytes % (auto) 22.6 %; Mean Corpuscular Hemoglobin 29.6 pg (25-34); Mean Corpuscular Hgb Conc 33.6 g/dL (32-36); Mean Corpuscular Volume 88.2 fL (80-100); Mean Platelet Volume 10.5 fL (7.4-10.4); Monocytes # (auto) 0.99 K/uL (0.11-0.59); Monocytes % (auto) 11.6 %; Neutrophils # (auto) 5.49 K/uL (1.4-6.5); Neutrophils % (auto) 64.7 %; Platelet Count 135 K/uL (130-400); RDW Coefficient of Variation 14.6 % (11.5-14.5); RDW Standard Deviation 47.4 fL (36.4-46.3); Red Blood Count 3.31 M/uL (4.2-5.4)
[2019-04-20 05:31] LABS: BUN Creatinine Ratio 20.2 (10-20); Calcium 8.1 mg/dl (8.5-10.1); Creatinine Clr Calc Pharmacy 39.1 ml/min; Est GFR (African American) 53.9; Est GFR (Non-African American) 46.5; Potassium 4.5 mmol/L (3.5-5.1)
[2019-04-20] MEDS: LEVOTHYROXINE SODIUM 175 MCG TABLET PO SCH (06:13)
[2019-04-20] MEDS: OXYCODONE/ACETAMINOPHEN 5mg/325mg TAB PO PRN ×2 (08:11→14:08)
[2019-04-20] MEDS: PANTOprazole 40 MG TAB PO SCH (08:12)
[2019-04-20] MEDS: CLOPIDOGREL BISULFATE 75 MG TAB PO SCH (08:12)
[2019-04-20] MEDS: carvediloL 12.5 MG TAB PO SCH (08:12)
[2019-04-20] MEDS: CHOLECALCIFEROL 1,000 UNITS TAB PO SCH (08:12)
[2019-04-20] MEDS: LOSARTAN POTASSIUM 50 MG TAB PO SCH (08:12)
[2019-04-20] MEDS: SPIRONOLACTONE 25 MG TAB PO SCH ×2 (08:13→22:00)
--- NOTE | 2019-04-20 09:33 | Surgery Progress Note ---
Date of Service April 20, 2019 Assessment & Plan (1) S/P femoral-tibial bypass: Pt doing well post op. Incisions looking well. Doppler pulse in ant tib. Anemia improved since transfusion, hgb 9.8 today. Will continue PT/OT and pain control. Consult wound care provider and RN for foot wound, as they had been following as outpt. Present on Admission?: Yes Supervising Physician Co-Signing Physician Notes I was added to this document BY EHR and IS is unable to remove my name from the document. My consult is separate from this document. I am not cosigning for Dr. Umana. I am signing this document to remove it from the sign que. Subjective 73 yo f POD #3 after RLE comm fem endarterectomy and fem-ant tib in situ bypass, seen in follow up today. Pt states she has pain in RLE, at incisions as well as occasional pain in R calf and foot. Pain relieved with medications. Pt admits fatigue/malaise. Denies N/V, chest pain, SOB, abd pain, other complaints. Review of Systems Review of Systems: All systems reviewed & are unremarkable except as noted in HPI & below Physical Exam Constitutional: WD/WN, vitals as above Respiratory: normal respiratory effort, lungs clear to auscultation Cardiovascular: Rate/Rhythm: regular rate and regular rhythm Vessels: posterior tibial pulses present (in RLE with doppler) and dorsalis pedis pulses present (NO DP signal, however, distal ant tib excellent doppler signal.); + abnormal peripheral pulses Extremities: normal capillary refill and + edema (RLE +2, soft) Gastrointestinal (Abdomen): normal bowel sounds, soft, nontender, no hepatosplenomegaly Musculoskeletal: Extremities: strength 5/5 throughout Skin: + wound (RLE foot wound with slough and granulation) and + incision (C/D/I with talita, +tender, -erythema/ecchymosis) Psychiatric: A+Ox3, euthymic affect Results & Data Vital Signs (Past 12 Hours) Vital Signs Temp Pulse Pulse Resp BP Pulse Ox 04/20/19 08:10 95 04/20/19 07:45 37.4 C 68 18 148/60 H 95 04/20/19 03:31 37.3 C 63 16 141/59 H 95 04/19/19 23:57 37.5 C 68 15 159/61 H 95 04/19/19 22:55 37.8 C H 74 16 153/56 H 91 04/19/19 21:43 64 167/64 H
[2019-04-20] MEDS: INSULIN ASPART 100 UNITS/ML 3 ML PEN SC SCH ×4 (09:41→22:08)
--- NOTE | 2019-04-20 15:02 | Wound Consultation ---
Date of Consultation April 20, 2019 Assessment & Plan (1) Diabetic foot ulcer associated with type 2 diabetes mellitus: Wound needed debridement. After obtaining permission topical Xylocaine was applied. Using scissors callus, fibrin and slough were removed. There is no bleeding. Patient tolerated the procedure well with no complications. This represents a non-excisional debridement less than 20 cm. Wound will be dressed with Grace and changed every other day. We will continue to follow. History of Present Illness Reason for Consultation: diabetic foot ulcer Attending Physician: Wesley Umana MD History of Present Illness This is a 73-year-old female who is well-known to the wound clinic and has a history of crest syndrome, GERD, diabetic neuropathy, dyslipidemia, hypertension, hypothyroidism, rainouts syndrome, renal cell carcinoma, vitamin D deficiency, chronic refractory osteomyelitis, DVT and peripheral arterial disease. She is postop day #3 status post common femoral endarterectomy and femoral - anterior tib in situ bypass by Dr. Umana. I am being consulted for patient's chronic diabetic foot ulcer. Patient denies fevers or chills. Allergies Allergy/AdvReac Type Severity Reaction Status Date / Time CHECO Inhibitors Allergy Unknown hives Verified 04/17/19 06:57 enflurane Allergy Unknown NAUSEA, Verified 04/17/19 06:57 jaundiced Iodinated Contrast Media Allergy Unknown HIVES - Verified 04/17/19 06:57 IVP DYE nickel Allergy Unknown REDNESS Verified 04/17/19 06:57 AND ITCHING liraglutide [From Victoza] AdvReac Unknown SEVERE Verified 04/17/19 06:57 NAUSEA Home Medications Home Medications Medication Instructions Recorded Confirmed Type albuterol sulfate 90 mcg/actuation 2 puffs INHALATION Q4H PRN #18 gm 12/08/18 04/17/19 Rx aerosol inhaler carvedilol 25 mg tablet 25 mg PO HS #90 tab 12/08/18 04/17/19 Rx clopidogrel 75 mg tablet 75 mg PO QAM #90 tab 12/08/18 04/17/19 Rx losartan 100 mg tablet 100 mg PO QAM #90 tab 12/08/18 04/17/19 Rx nifedipine 30 mg tablet,extended 30 mg PO HS #90 tab 12/08/18 04/17/19 Rx release budesonide-formoterol 2 puffs INHALATION BID PRN 12/31/18 04/17/19 History carvedilol 12.5 mg PO QAM 12/31/18 04/17/19 History insulin detemir U-100 100) 100 30 units SQ QPM #30 ml 02/18/19 04/17/19 Rx unit/mL subcutaneous solution insulin lispro 100) 100 unit/mL See Rx Instructions .ROUTE 02/27/19 04/17/19 Rx subcutaneous solution .COMPLEX #40 ml spironolactone 25 mg tablet 25 mg PO BID #180 tab 03/02/19 04/17/19 Rx cholecalciferol (vitamin D3) 1,000 unit PO DAILY 04/03/19 04/17/19 History [Vitamin D3] oxycodone-acetaminophen [Percocet] 1 tab PO Q6H PRN 04/03/19 04/17/19 History omeprazole 20 mg PO QAM 04/06/19 04/17/19 History levothyroxine 175 mcg tablet 175 mcg PO QAM #90 tab 04/09/19 04/17/19 Rx atorvastatin 80 mg PO QPM 04/17/19 04/17/19 History Patient History Medical History Anemia CHRONIC; BASELINE HGB STABLE AT 9-10 RANGE PER CHART REVIEW Asthma CONTROLLED/LAST USE OF INHALER 1 YR AGO Chronic kidney disease STAGE III Coronary artery disease NON-OBSTRUCTIVE CREST syndrome Diverticular disease GERD (gastroesophageal reflux disease) History of amputation of right great toe (Acute) History of MRSA infection [id number] RIGHT FOOT Hx of carotid stenosis BOTH SIDES - HAD CORRECTIVE SURGERY Hx of deep venous thrombosis 2017 R LE - NO LONGER ON XARALTO Hx of renal cell cancer R RENAL (2012) S/O R NEPHRECTOMY - NO RADIATION NO CHEMO Hyperlipidemia Hypertension Hypothyroidism PAD (peripheral artery disease) (Acute) Peripheral neuropathy BILATERAL FEET AND LEGS Peripheral vascular disease Renal artery stenosis RIGHT KIDNEY STENT ATTEMPTED 2010; S/P RIGHT NEPHRECTOMY 2012 Type II diabetes mellitus Ulcer of right midfoot CURRENT OPEN ULCER - DENIES KNOWN INFECTION OF Surgical History H/O carotid endarterectomy LEFT (2002), RIGHT (1995) History of amputation of lesser toe of right foot MULTIPLE TOE AMPUTATIONS/I&D (RIGHT 4TH TOE, 3RD METATARSAL EXCISION) History of angioplasty MULTIPLE History of appendectomy OPEN History of atherectomy (Unknown) LEFT (02/2017) History of cardiac cath 2012= NO STENTS History of cataract surgery BILATERAL History of cholecystectomy OPEN History of colonoscopy History of endoscopic sinus surgery History of hysterectomy MERYL W/ BSO History of nephrectomy RIGHT (2012) History of procedure for peripheral vascular disease LEFT POPLITEAL S/P PERONEAL ARTERY BYPASS 2010; RLE ANGIO WITH INTERVENTION 06/2017 History of tonsillectomy Hx of lumpectomy LEFT BREAST (BENIGN) Nausea and vomiting after administration of anesthetic agent S/P femoral-tibial bypass Family History Father Family hx of colon cancer Family history of diabetes mellitus Social History Preferred Language: Bol[place]ian Communication Ability: Effective Visual Impairment: No Limitations Community Services Officer Required: No Beliefs That Will Affect Care: None marital status: Current Living Situation: Spouse current occupational status: retired Other Information That Helps Us Care for You: No Feels Safe at Home: Yes Smoking Status: Never smoker Do You Dip or Chew Tobacco: No ; Second Hand Exposure: No ; Hx Alcohol Use: No Hx Substance Use: No during the past year weight has: remained stable Review of Systems Review of Systems: All systems reviewed & are unremarkable except as noted in HPI & below Physical Exam Skin: Right lateral plantar foot wound measuring 1.7 x 0.4 x 0.1 cm. Wound is covered with fibrin and slough. Periwound is intact with callus formation. There is minimal drainage and no foul odor. Right plantar foot wound measuring 0.9 x 1.2 x 0.3 cm. Wound is covered with fibrin and slough. Periwound is intact with callus formation. There is minimal drainage no foul odor. Neurologic: awake; not confused Psychiatric: A+Ox3, euthymic affect Results & Data Vital Signs (Past 12 Hours) Vital Signs Temp Pulse Pulse Resp BP Pulse Ox 04/20/19 11:15 37.1 C 04/20/19 09:40 37.7 C H 04/20/19 08:10 95 04/20/19 07:45 37.4 C 68 18 148/60 H 95 04/20/19 03:31 37.3 C 63 16 141/59 H 95 PG Care Time/CCT Total # of Minutes Spent Total Time Spent with Patient: Total time spent is greater than 50% in coordination of care (as documented) at patient's floor/unit and/or counseling patient: (1) Diabetic foot ulcer associated with type 2 diabetes mellitus Diabetic foot ulcer location: midfoot Laterality: right Non-pressure ulcer stage: with other severity Qualified Code(s): E11.621 - Type 2 diabetes mellitus with foot ulcer; L97.418 - Non-pressure chronic ulcer of right heel and midfoot with other specified severity
[2019-04-20] MEDS: carvediloL 25 MG TAB PO SCH (22:00)
[2019-04-20] MEDS: ATORVASTATIN 40 MG TAB PO SCH (22:01)
[2019-04-20] MEDS: NIFEdipine EXTENDED REL 30 MG TABCR PO SCH (22:01)
[2019-04-20] MEDS: INSULIN DETEMIR FLEXPEN/FLEX TOUCH 100 UNITS/ML 3ML SQ SCH (22:04)
[2019-04-21] MEDS: OXYCODONE/ACETAMINOPHEN 5mg/325mg TAB PO PRN ×3 (06:05→22:37)
[2019-04-21] MEDS: LEVOTHYROXINE SODIUM 175 MCG TABLET PO SCH (06:05)
[2019-04-21] MEDS: CARBOHYDRATES FOR HYPOGLYCEMIA PO PRN (08:02)
[2019-04-21] MEDS: carvediloL 12.5 MG TAB PO SCH (09:17)
[2019-04-21] MEDS: PANTOprazole 40 MG TAB PO SCH (09:17)
[2019-04-21] MEDS: CHOLECALCIFEROL 1,000 UNITS TAB PO SCH (09:17)
[2019-04-21] MEDS: LOSARTAN POTASSIUM 50 MG TAB PO SCH (09:17)
[2019-04-21] MEDS: SPIRONOLACTONE 25 MG TAB PO SCH ×2 (09:17→22:32)
[2019-04-21] MEDS: CLOPIDOGREL BISULFATE 75 MG TAB PO SCH (09:17)
[2019-04-21] MEDS: INSULIN ASPART 100 UNITS/ML 3 ML PEN SC SCH ×4 (09:31→22:28)
--- NOTE | 2019-04-21 12:05 | Surgery Progress Note ---
Date of Service April 21, 2019 Assessment & Plan (1) S/P femoral-tibial bypass: Pt doing well post op. Incisions looking well. Doppler pulse in ant tib and in bypass. Will continue PT/OT. Pain control with option for 2 percocet if needed. Pt without BM since admission, no abd pain and is passing some flatus. Will add miralax and colace. Possible d/c in 1-2 days. Present on Admission?: Yes Subjective 73 yo f POD #4 after RLE comm fem endarterectomy and fem-ant tib in situ bypass, seen in follow up today. Pt states she has pain in RLE, at incisions as well as occasional pain in R calf and foot. Pain decreased with single oral percocet, however, not completely relieved. Pt does not want to take IV pain med. Pt admits fatigue/malaise,but has been able to ambulate more today. Passing flatus, but has not had BM since before admission. Denies N/V, chest pain, SOB, abd pain, other complaints. Review of Systems Review of Systems: All systems reviewed & are unremarkable except as noted in HPI & below Physical Exam Constitutional: WD/WN, vitals as above Respiratory: normal respiratory effort, lungs clear to auscultation Cardiovascular: Rate/Rhythm: regular rate and regular rhythm Vessels: posterior tibial pulses present (in RLE with doppler) and dorsalis pedis pulses present (NO DP signal, however, distal ant tib excellent doppler signal.); + abnormal peripheral pulses Extremities: normal capillary refill and + edema (RLE +2, soft) Gastrointestinal (Abdomen): normal bowel sounds, soft, nontender, no hepatosplenomegaly Musculoskeletal: Extremities: strength 5/5 throughout Skin: + wound (RLE foot wound with slough and granulation) and + incision (C/D/I with talita, +tender, -erythema/ecchymosis) Psychiatric: A+Ox3, euthymic affect Results & Data Vital Signs (Past 12 Hours) Vital Signs Temp Pulse Pulse Resp BP Pulse Ox 04/21/19 11:32 37 C 62 16 122/62 91 04/21/19 08:08 36.9 C 62 16 120/60 91 04/21/19 07:43 36.8 C 61 16 119/56 L 91
[2019-04-21] MEDS: DOCUSATE SODIUM 100 MG CAP PO SCH ×2 (13:12→22:29)
[2019-04-21] MEDS: POLYETHYLENE (MIRALAX) 17 GM PACK PO SCH (13:12)
[2019-04-21] MEDS: INSULIN DETEMIR FLEXPEN/FLEX TOUCH 100 UNITS/ML 3ML SQ SCH (22:28)
[2019-04-21] MEDS: ATORVASTATIN 40 MG TAB PO SCH (22:31)
[2019-04-21] MEDS: carvediloL 25 MG TAB PO SCH (22:32)
[2019-04-21] MEDS: NIFEdipine EXTENDED REL 30 MG TABCR PO SCH (22:32)
[2019-04-22] MEDS: LEVOTHYROXINE SODIUM 175 MCG TABLET PO SCH (06:04)
[2019-04-22] MEDS: OXYCODONE/ACETAMINOPHEN 5mg/325mg TAB PO PRN ×2 (09:10→21:33)
[2019-04-22] MEDS: DOCUSATE SODIUM 100 MG CAP PO SCH ×2 (09:12→21:41)
[2019-04-22] MEDS: LOSARTAN POTASSIUM 50 MG TAB PO SCH (09:12)
[2019-04-22] MEDS: CHOLECALCIFEROL 1,000 UNITS TAB PO SCH (09:12)
[2019-04-22] MEDS: CLOPIDOGREL BISULFATE 75 MG TAB PO SCH (09:12)
[2019-04-22] MEDS: SPIRONOLACTONE 25 MG TAB PO SCH ×2 (09:13→21:41)
[2019-04-22] MEDS: PANTOprazole 40 MG TAB PO SCH (09:13)
[2019-04-22] MEDS: POLYETHYLENE (MIRALAX) 17 GM PACK PO SCH (09:13)
[2019-04-22] MEDS: carvediloL 12.5 MG TAB PO SCH (09:13)
[2019-04-22] MEDS: INSULIN ASPART 100 UNITS/ML 3 ML PEN SC SCH ×4 (09:15→21:34)
--- NOTE | 2019-04-22 14:18 | Surgery Progress Note ---
Date of Service April 22, 2019 Assessment & Plan (1) S/P femoral-tibial bypass: Pt doing well post op. Incisions looking well. Doppler pulse in ant tib and in bypass. Will continue PT/OT and stool softeners. D/C to rehab when bed available. Subjective 73 yo f POD #5 after RLE comm fem endarterectomy and fem-ant tib in situ bypass, seen in follow up today. Pt states pain control is improving and she is able to increase activity slightly. Continues to pass flatus, no BM. Denies N/V, chest pain, SOB, abd pain, other complaints. Review of Systems Review of Systems: All systems reviewed & are unremarkable except as noted in HPI & below Physical Exam Constitutional: WD/WN, vitals as above Respiratory: normal respiratory effort, lungs clear to auscultation Cardiovascular: Rate/Rhythm: regular rate and regular rhythm Vessels: posterior tibial pulses present (in RLE with doppler) and dorsalis pedis pulses present (NO DP signal, however, distal ant tib excellent doppler signal.); + abnormal peripheral pulses Extremities: normal capillary refill and + edema (RLE +2, soft) Gastrointestinal (Abdomen): normal bowel sounds, soft, nontender, no hepatosplenomegaly Musculoskeletal: Extremities: strength 5/5 throughout Skin: + wound (RLE foot wound with slough and granulation) and + incision (C/D/I with talita, +tender, -erythema/ecchymosis) Psychiatric: A+Ox3, euthymic affect Results & Data Vital Signs (Past 12 Hours) Vital Signs Temp Pulse Pulse Resp BP Pulse Ox 04/22/19 09:10 63 148/61 H 04/22/19 08:00 36.7 C 60 18 129/62 95
[2019-04-22] MEDS: INSULIN DETEMIR FLEXPEN/FLEX TOUCH 100 UNITS/ML 3ML SQ SCH (21:34)
[2019-04-22] MEDS: NIFEdipine EXTENDED REL 30 MG TABCR PO SCH (21:41)
[2019-04-22] MEDS: carvediloL 25 MG TAB PO SCH (21:41)
[2019-04-22] MEDS: ATORVASTATIN 40 MG TAB PO SCH (21:41)
[2019-04-23] MEDS: LEVOTHYROXINE SODIUM 175 MCG TABLET PO SCH (06:06)
[2019-04-23] MEDS: CARBOHYDRATES FOR HYPOGLYCEMIA PO PRN ×3 (06:33→07:10)
[2019-04-23] MEDS: OXYCODONE/ACETAMINOPHEN 5mg/325mg TAB PO PRN (07:56)
[2019-04-23] MEDS: SPIRONOLACTONE 25 MG TAB PO SCH (07:57)
[2019-04-23] MEDS: carvediloL 12.5 MG TAB PO SCH (07:58)
[2019-04-23] MEDS: DOCUSATE SODIUM 100 MG CAP PO SCH (07:58)
[2019-04-23] MEDS: CLOPIDOGREL BISULFATE 75 MG TAB PO SCH (07:59)
[2019-04-23] MEDS: PANTOprazole 40 MG TAB PO SCH (07:59)
[2019-04-23] MEDS: CHOLECALCIFEROL 1,000 UNITS TAB PO SCH (07:59)
[2019-04-23] MEDS: LOSARTAN POTASSIUM 50 MG TAB PO SCH (07:59)
[2019-04-23] MEDS: INSULIN ASPART 100 UNITS/ML 3 ML PEN SC SCH ×2 (09:00→13:57)
[2019-04-23] MEDS: POLYETHYLENE (MIRALAX) 17 GM PACK PO SCH (13:59)
--- NOTE | 2019-04-23 16:16 | Surgery Progress Note ---
Date of Service April 23, 2019 Assessment & Plan (1) S/P femoral-tibial bypass: Pt doing well post op. Incisions looking well. Doppler pulse in ant tib and in bypass. D/C to rehab when bed available. Subjective 73 yo f POD #6 after RLE comm fem endarterectomy and fem-ant tib in situ bypass, seen in follow up today. Pt states pain control is good and looking forward to D/C. No new complaints. Physical Exam Constitutional: WD/WN, vitals as above Respiratory: normal respiratory effort, lungs clear to auscultation Cardiovascular: Rate/Rhythm: regular rate and regular rhythm Vessels: posterior tibial pulses present (in RLE with doppler) and dorsalis pedis pulses present (NO DP signal, however, distal ant tib excellent doppler signal.); + abnormal peripheral pulses Extremities: normal capillary refill and + edema (RLE +2, soft) Gastrointestinal (Abdomen): normal bowel sounds, soft, nontender, no hepatosplenomegaly Musculoskeletal: Extremities: strength 5/5 throughout Skin: + wound (RLE foot wound with slough and granulation) and + incision (C/D/I with talita, +tender, -erythema/ecchymosis) Psychiatric: A+Ox3, euthymic affect Results & Data Vital Signs (Past 12 Hours) Vital Signs Temp Pulse Pulse Resp BP Pulse Ox 04/23/19 15:29 37.0 C 61 18 157/69 H 93 04/23/19 12:51 36.3 C L 60 70 17 152/65 H 96 04/23/19 11:22 36.3 C L 70 17 152/65 H 96 04/23/19 07:33 36.7 C 62 18 133/66 96
--- NOTE | 2019-04-24 09:48 | Discharge Summary ---
Date of Service April 24, 2019 Admission HPI Per Admitting Provider Addendum April 08, 2019 06:34 Patient did undergo arteriography and was found to have severe infrapopliteal and popliteal occlusions. The stents were patent. Due to the location and extent of the occlusions, endovascular intervention could not be done. She is therefore admitted at this time for a bypass of the right lower extremity for worsening ulcers of her right foot. Rest of the H and P is unchanged. Date of Service April 08, 2019 History of Present Illness Primary Care Provider: Agustín Jarvis MD Date of Service April 03, 2019 Assessment & Plan (1) Peripheral vascular disease: Patient is admitted for arteriography with possible intervention. I have discussed the risks options and benefits of the procedure with the patient. The patient understands the risks options and benefits and agrees to the procedure. History of Present Illness Chief Complaint: Open wound right foot, occluded femoral artery stents Primary Care Provider: Agustín Jarvis MD Patient is a 73 year old female who had stents of her right leg for non healing amputation of her right foot. The foot had almost healed but now has gotten worse since her stents have occluded. She is admitted today for reintervention of her right lower extremity. Allergies Admission Exam Per Admitting Provider Physical Exam: Constitutional: WD/WN, vitals as above Respiratory: normal respiratory effort, lungs clear to auscultation Cardiovascular: RRR, no murmur, no edema, weak doppler pulse right foot Gastrointestinal (Abdomen): normal bowel sounds, soft, nontender, no hepatosplenomegaly Musculoskeletal: open wound of lateral aspect of right foot Neurologic: patellar DTR's 2+ bilat, sensation intact and PERRL, EOMI, accommodation nl, no face palsy, no dysarthria Psychiatric: A+Ox3, euthymic affect Principal Diagnosis 1. s/p RLE common fem endarterectomy with bovine patch and femoral to ant tib in situ bypass 2. Severe PAD with nonhealing wound RLE Discharge Exam Constitutional WD/WN, vitals as above Respiratory normal respiratory effort, lungs clear to auscultation Cardiovascular Rate/Rhythm: regular rate and regular rhythm Vessels: posterior tibial pulses present (in RLE with doppler) and dorsalis pedis pulses present (NO DP signal, however, distal ant tib excellent doppler si gnal.); + abnormal peripheral pulses Extremities: normal capillary refill and + edema (RLE +2, soft) Gastrointestinal (Abdomen) normal bowel sounds, soft, nontender, no hepatosplenomegaly Musculoskeletal Extremities: strength 5/5 throughout Skin + wound (RLE foot wound with slough and granulation) and + incision (C/D/I with talita, +tender, -erythema/ecchymosis) Psychiatric A+Ox3, euthymic affect Discharge Data Allergies Allergy/AdvReac Type Severity Reaction Status Date / Time CHECO Inhibitors Allergy Unknown hives Verified 04/17/19 06:57 enflurane Allergy Unknown NAUSEA, Verified 04/17/19 06:57 jaundiced Iodinated Contrast Media Allergy Unknown HIVES - Verified 04/17/19 06:57 IVP DYE nickel Allergy Unknown REDNESS Verified 04/17/19 06:57 AND ITCHING liraglutide [From Victoza] AdvReac Unknown SEVERE Verified 04/17/19 06:57 NAUSEA Consultations 04/18/19 08:00 Consult Case Management - Discharge Planning Routine 04/20/19 09:18 Consult Wound Care Provider Routine Procedures Performed Operation Date: 04/17/19 08:00 Actual Procedures p Right Common Femoral Endartectomy with patch, Right Femoral to Distal Anterior Tibial Insitu Bybass, Insertion of Stent Distal Bypass(Right) - Wesley Umana MD Ordered Studies 04/17/19 07:54 EV angio LE RT Routine Hospital Course (1) S/P femoral-tibial bypass: Pt doing well post op day #6. Incisions looking well. Doppler pulse in ant tib and in bypass. D/C to rehab when bed available. Total Time Total Time Spent Total Time Spent (In Minutes): 15 minutes Total Time Includes: Examination of the Patient, Discharge Planning and Medication Reconciliation Discharge Plan Discharge Items Patient Disposition: Transfer Longterm Fac Reason For Visit: Popliteal Artery Occlusion Discharge Diagnosis: Non healing ulcer right foot, post right lower extremity bypass Activity: Per Instructions section Lifting: Gradually increase as tolerated Bathing: May shower/bathe in 3 days Exercise/Sports: Gradually increase as tolerated Weightbearing: Full weightbearing Non-emergency contact: Surgeon Call non-emergency contact if: you have any medication questions, your symptoms worsen, your pain is not controlled, your pain is unusual for you, your pain is concerning for you, your temperature is above 101.5, your wound has increased redness, your wound has increased drainage and your wound pain has increased Follow-up/Referrals: Agustín Jarvis MD [Primary Care Provider] - Wesley Umana MD [Physician] - (follow up in one week from now, please call for an appointment) Arjun Ramos DO [Physician] - (follow up with wound care clinic one week) Diet: Carb Consistent or DM2 and Heart Healthy Addtl Attending Provider Instructions: ACTIVITY RECOMMENDATIONS: See Above SPECIAL CARE INSTRUCTIONS: Call your doctor if: * Temperature above 101 degrees * Pain not relieved by pain medicine ordered * There is increased drainage or redness from any incision * You have any unanswered questions or concerns. Call [phone] to schedule a follow up appointment if one not already scheduled. 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 Instructions: daily wound changes with aquacel ag to wound Pending Studies at Discharge: No Stand-Alone Forms: My [employer] Skilled Items Patient informed of condition?: Yes DNR: No Discharge Level of Care: Skilled Communicable Disease: No Discharge Prognosis: Improving Lines: None Urinary Catheter: No Medications and DC Order Prescriptions: New oxycodone-acetaminophen [Percocet] 5-325 mg tablet 1 tab PO Q6H PRN (Reason: pain) Qty: 30 RF: 0 Continued Levemir U-100 Insulin 100 unit/mL solution 30 units SQ QPM Qty: 30 RF: 3 insulin lispro 100 unit/mL solution See Patient Comments .ROUTE .COMPLEX Qty: 40 RF: 3 spironolactone 25 mg tablet 25 mg PO BID Qty: 180 RF: 3 levothyroxine 175 mcg tablet 175 mcg PO QAM Qty: 90 RF: 3 albuterol sulfate 90 mcg/actuation HFA aerosol inhaler 2 puffs inhalation Q4H PRN (Reason: shortness of breath or wheezing) Qty: 18 RF: 3 carvedilol [Coreg] 25 mg tablet 25 mg PO HS Qty: 90 RF: 3 clopidogrel [Plavix] 75 mg tablet 75 mg PO QAM Qty: 90 RF: 3 losartan 100 mg tablet 100 mg PO QAM Qty: 90 RF: 3 nifedipine 30 mg tablet extended release 30 mg PO HS Qty: 90 RF: 3 cholecalciferol (vitamin D3) [Vitamin D3] 1,000 unit Tablet,Chewable 1,000 unit PO DAILY RF: 0 carvedilol 25 mg Tablet 12.5 mg PO QAM RF: 0 budesonide-formoterol 160-4.5 mcg/actuation HFA aerosol inhaler 2 puffs inhalation BID PRN (Reason: Shortness Of Breath Or Wheezing) RF: 0 omeprazole 40 mg capsule,delayed release(DR/EC) 20 mg PO QAM RF: 0 atorvastatin 80 mg tablet 80 mg PO QPM RF: 0 Discontinued oxycodone-acetaminophen [Percocet] 5-325 mg Tablet 1 tab PO Q6H PRN (Reason: Pain) RF: 0 Discharge Orders: Discharge Order (Routine); Ordered 04/23/19 Ordered By: Wesley Umana Admission Data Admit Date/Time: 04/17/19 07:45 Attending Provider: Wesley Umana Admit Provider: Wesley Umana Primary Care Provider: Agustín Jarvis Other Providers: Arjun Ramos Other Interventions: Discharge Summary Assessment (RN) Last Done: 04/23/19 12:51 DC Date/Time DO NOT enter until pt leaves facility: 04/23/19 16:10
--- NOTE | 2019-05-08 07:44 | Operative Report ---
Post Operative Report Pre & Post Diagnosis Operation Date: 04/17/19 08:00 Pre-Op Diagnosis: Non healing ulcer right foot, right popliteal and infrapopliteal artery occlusion Post-Op Diagnosis: Non healing ulcer right foot, right popliteal and infrapopliteal artery occl usion I identified the patient and participated in the time-out.: Yes Procedure Operation Date: 04/17/19 08:00 Actual Procedures p Right Common Femoral Endartectomy with patch, Right Femoral to Distal Anterior Tibial Insitu Bybass, Insertion of Stent Distal Bypass(Right) - Wesley Umana MD Surgeon Wesley Umana MD Cooker Loader Devante,PAC Estimated Blood Loss 250 Findings Consistent with Post-Op Diagnosis Specimens None Anesthesia Type General Complications none Disposition Accompanied Patient To Recovery: No Disposition: Recovery Room Indications This is a 73-year-old female who had multiple procedures on her right lower extremity for nonhealing ulcer of the foot. Her lower extremity arterial system is again occluded. This cannot be treated endovascularly. Bypass was recommended for the nonhealing ulcer of the right TMA site. I have discussed the risks options and benefits of the procedure with the patient. The patient understands the risks options and benefits and agrees to the procedure. Description of Procedure Patient was taken the operating placed in the supine position. After general anesthesia was accomplished the right leg was prepped and draped in a sterile manner. Patient was identified and a timeout was performed. Longitudinal incision was made in the right groin. This carried down through the common femoral artery was identified. It was fairly calcified. Another incision was then made at the distal lateral leg of the anterior tibial artery. Anterior tibial artery was dissected free approximately a third of the distance from the ankle. It was soft and usable at that level. We then made an incision over the saphenous vein in the medial aspect of the calf at the lowest point where it ended from previous harvest. It was freed up from that level up to the knee is of good caliber. We then found the saphenous vein in the groin. This was isolated. The saphenofemoral junction was clamped. Separately was divided and the junction oversewn with 5-0 Prolene. The first valve of the saphenous vein was then dissected and excised under direct vision. The patient was heparinized. The common femoral profundofemoral and superficial femoral arteries were clamped. Longitudinal arteriotomy was started on the common femoral artery extended downward to the origin of the superficial femoral artery there is a fair amount of plaque on the common femoral artery that at that level endarterectomy was then performed. This was done in the appropriate plane we then closed the endarterectomy site with a bovine patch. Once this was completed this abdomen is brought over to the patch with a longitudinal incision was made in the patch and the sinus most was accomplished with a 5-0 Prolene suture in the usual vascular fashion. Clamps were then removed. Excellent flow was seen down to the first valve. The distal end of the saphenous vein was then transected. It was gently dilated with heparinized saline the Intralign valve cutters were then used and the valves of the saphenous vein were then cut without difficulty. Good flow was seen through the valve at that time. The vein was then passed through a tunnel made through the interosseous membrane from the medial to lateral leg. The anterior tibial artery was then clamped. Longitudinal arteriotomy was then performed. A Florastor was placed in the artery and the clamps were removed. Anastomosis was then performed between the saphenous vein and the anterior tibial artery using a running 6-0 Prolene suture in usual vascular fashion. Prior to completing the closure backbleeding for bleeding was allowed to occur to find a few sutures were then placed and secur yanet tied. Clamps were then removed. Good flow was seen distally. We then punctured the sidebranch of the saphenous vein in the groin with a micropuncture technique. Arteriogram was then performed. There were 4 large side branches seen which were marked on the skin. There is also a defect in the distal saphenous vein which showed because the significant narrowing. The micropuncture catheter was then exchanged for a 5 Nigerien sheath. We then inserted a 5 x 4 stent in that area and stented the greater saphenous vein. Completion angios done at that time showed the vein to be widely patent with good flow down to the foot. The sheath removed the same branch was ligated. We then made separate incisions over the large side branches and these were ligated in situ. After hemostasis was noted of all the wounds appear wounds were then closed in usual fashion using running 3-0 Vicryl suture for subcutaneous layer a running 2-0 Vicryl for the femoral sheath and talita for the skin. Sterile dressings were applied to the wound.The patient left the operation room in satisfactory condition and tolerated the procedure well. All needle and sponge counts were correct at the end of the procedure. Marzena Pastor Pac assisted due to lack of resident availability and was necessary for positioning, draping, retraction, wound closure deep layers, subcutaneous tissue, and skin closure and was necessary for assisting with the case. I attest to the content of the Intraoperative Record and any orders documented therein. Any exceptions are noted below.
== END 2019-04-23 16:10 | DRG 253 ==
LOC: ASU 06:28 → 3W 07:45

== ENCOUNTER 2019-09-02 05:52 | Inpatient (IN) ==
--- NOTE | 2019-08-31 08:32 | Anesthesiology Consultation ---
Date of Service August 31, 2019 Assessment & Plan (1) Encounter for pre-operative examination: Chart Review Chart Review: Acceptable Risk for Surgery (pending DOS labs ) and Patient NOT seen in Pre Admission Testing Per Dr. Umana orders, will order preop labs AM of surgery (CBC and BMP ordered by anesthesia). Will leave to anesthesiologist discretion if CXR needed - Check BSG AM DOS Left LE angioplasty with SYSTEM AUDITOR I peroneal and stent I common iliac artery 07/15/19 (by Dr. Umana) Right femoral tibial bypass 04/17/19= GA- Grade 1 view with MAC #3 and ETT # 7.5- no issues per anesthesia record Last seen by PCP 06/12/19- ongoing slowly healing right foot partial amputation- continue with [facility]. Constipation controlled with laxative. Diabetes un tita good control with Hgb A1C of 7.0. Follows with nephro for kidneys. BP controlled. Levothyroxine dose decreased in May. Breathing stable- takes Symbicort. Slight anemia. CREST syndrome had unremarkable Feb 2019 ECHO. F/u three months History Surgery Operation Date: 09/02/19 07:15 Proposed Procedures p Right Lower Extremity Below Knee Amputation - Wesley Umana MD Height/Weight Height: 5 ft 5 in Weight: 63.503 kg Allergies Allergy/AdvReac Type Severity Reaction Status Date / Time enflurane Allergy Severe NAUSEA, Verified 08/28/19 14:16 jaundiced Iodinated Contrast Media Allergy Intermediate HIVES - Verified 08/28/19 14:16 IVP DYE CHECO Inhibitors Allergy Mild hives Verified 08/28/19 14:16 nickel Allergy Mild REDNESS Verified 08/28/19 14:16 AND ITCHING liraglutide [From Victoza] AdvReac Mild SEVERE Verified 08/28/19 14:16 NAUSEA Medications Home Medications Medication Instructions Recorded Confirmed Last Taken albuterol sulfate 90 mcg/actuation 2 puffs INHALATION Q4H PRN #18 gm 12/08/18 08/28/19 Unknown aerosol inhaler insulin lispro 100 unit/mL See Rx Instructions .ROUTE 02/27/19 08/28/19 07/24/19 subcutaneous solution .COMPLEX #40 ml 10 UNITS spironolactone 25 mg tablet 25 mg PO BID #180 tab 03/02/19 08/28/19 07/24/19 cholecalciferol (vitamin D3) 1,000 unit PO DAILY 04/03/19 08/28/19 07/23/19 [Vitamin D3] levothyroxine 150 mcg tablet 150 mcg PO QAM #90 tab 05/18/19 08/28/19 07/24/19 Advair HFA 1 puff INHALATION Q4 PRN 07/06/19 08/28/19 Unknown Levemir U-100 Insulin 30 units SQ QPM 07/06/19 08/28/19 07/23/19 cephalexin 500 mg capsule 500 mg PO qid 14 Days #56 cap 08/28/19 Unknown cholecalciferol (vitamin D3) 25 mcg PO HS 08/28/19 08/28/19 Unknown [Vitamin D3] atorvastatin 80 mg tablet 80 mg PO QPM #90 tab 08/31/19 Unknown carvedilol 25 mg tablet See Rx Instructions PO DAILY #135 08/31/19 Unknown tab clopidogrel 75 mg tablet 75 mg PO QAM #90 tab 08/31/19 Unknown losartan 100 mg tablet 100 mg PO QAM #90 tab 08/31/19 Unknown nifedipine 30 mg tablet,extended 30 mg PO HS #90 tab 08/31/19 Unknown release omeprazole 20 mg capsule,delayed 20 mg PO HS #90 cap 08/31/19 Unknown release Past Medical History Medical History (Updated 08/31/19 @ 08:58 by Cheryl Lao PA-C) Anemia CHRONIC; BASELINE HGB STABLE AT 9-10 RANGE PER CHART REVIEW Asthma CONTROLLED/LAST USE OF INHALER "A LONG TIME AGO" Chronic kidney disease STAGE III - FOLLOWS WITH NEPHRO- CREATINE USUALLY 1.3-1.5 Coronary artery disease NON-OBSTRUCTIVE CREST syndrome Diverticular disease GERD (gastroesophageal reflux disease) History of MRSA infection Hx of carotid stenosis BOTH SIDES - HAD LEFT CEA 2002 AND RIGHT CEA 1995 Hx of deep venous thrombosis 2017 R LE Hx of renal cell cancer R RENAL (2012) S/P R NEPHRECTOMY - NO RADIATION NO CHEMO Hyperlipidemia Hypertension Hypothyroidism PAD (peripheral artery disease) Peripheral neuropathy BILATERAL FEET AND LEGS Peripheral vascular disease Renal artery stenosis RIGHT KIDNEY STENT ATTEMPTED 2010; S/P RIGHT NEPHRECTOMY 2012 Type II diabetes mellitus INSULIN DEPENDENT Unstageable pressure ulcer of left heel (Acute) Wound infection RT FOOT Past Family History Family History Father Family hx of colon cancer Family history of diabetes mellitus Past Surgical History Surgical History (Updated 08/31/19 @ 08:38 by Cheryl Lao PA-C) H/O carotid endarterectomy LEFT (2002), RIGHT (1995) History of amputation of lesser toe of right foot MULTIPLE TOE AMPUTATIONS/I&D (ALL RT TOES) History of angioplasty MULTIPLE OF LE'S WITH STENTS TO LOWER EXTREMITIES PLACED History of appendectomy History of atherectomy LEFT (02/2017) History of cardiac cath 2011= NO STENTS History of cataract surgery RT/LEFT History of cholecystectomy History of colonoscopy History of endoscopic sinus surgery History of hysterectomy MERYL W/ BSO History of nephrectomy RIGHT (2012) History of procedure for peripheral vascular disease LEFT POPLITEAL S/P PERONEAL ARTERY BYPASS 2012; RLE ANGIO WITH INTERVENTION 06/2017 History of tonsillectomy Hx of lumpectomy LEFT BREAST (BENIGN) Nausea and vomiting after administration of anesthetic agent S/P femoral-tibial bypass Social History Smoking Status: Never smoker Do You Dip or Chew Tobacco: No Hx Alcohol Use: No Hx Substance Use: No substance use type: does not use Testing Laboratory Results 07/24/19= WBC: 7.45 H/H: 12.2/37.1 PLATELETS: 215 SODIUM: 140 POTASSIUM: 4.1 CHLORIDE: 109 CO2: 28 BUN: 23 CREATININE: 1.07 GLUCOSE: 57 HGB A1C: 7.0 Electrocardiogram Date: 04/17/19 Findings: + SB @ (55) Compared to EKG from Feb 27, 2018- NS TWA no longer evident in anterior leads Echocardiogram Date: 02/24/19 EF: >70% LV Function: Hyperdynamic RWMA: + none Other Findings: + LVH (Moderate/concentric ) AV sclerosis without significant stenosis. Type I diastolic dysfunction Other Testing Carotid doppler 01/09/16= Patent bilateral carotid endarterectomies with on significant restenosis; less than 50% bilaterally.
--- NOTE | 2019-09-01 12:40 | History & Physical Report ---
Date of Service September 01, 2019 Assessment & Plan (1) Atherosclerosis of artery of extremity with rest pain: Patient is admitted at this time for a right below the knee amputation. I have discussed the risks options and benefits of the procedure with the patient. The patient understands the risks options and benefits and agrees to the procedure. History of Present Illness Chief Complaint: Infected right foot wound with intractable pain Primary Care Provider: Agustín Jarvis MD This is a 74 yo f with multiple medical problems, including CAD, DMII, carotid stenosis, hx of HTN, dyslipidemia, renal cell ca, CREST syndrome, and severe PAD requiring multiple revascularization procedures. She has had multiple procedures of revascularization, most recently with L iliac and peroneal art angio with stenting. Most recent open procedure was RLE fem-tib insitu bypass done in May 2019 which was noted to be occluded at follow up visit at the end of June 2019. Pt has been advised that there are no further options available for revasc of RLE and that local wound care is recommended. She now has developed MRSA infection of the open foot wound and intractable pain. We recommended a right BKA which can not wait due to the intractable pain and infected wound. Pt denies any other complaints Allergies Allergy/AdvReac Type Severity Reaction Status Date / Time enflurane Allergy Severe NAUSEA, Verified 08/28/19 14:16 jaundiced Iodinated Contrast Media Allergy Intermediate HIVES - Verified 08/28/19 14:16 IVP DYE CHECO Inhibitors Allergy Mild hives Verified 08/28/19 14:16 nickel Allergy Mild REDNESS Verified 08/28/19 14:16 AND ITCHING liraglutide [From Victoza] AdvReac Mild SEVERE Verified 08/28/19 14:16 NAUSEA Home Medications Home Medications Medication Instructions Recorded Confirmed Type albuterol sulfate 90 mcg/actuation 2 puffs INHALATION Q4H PRN #18 gm 12/08/18 08/28/19 Rx aerosol inhaler insulin lispro 100 unit/mL See Rx Instructions .ROUTE 02/27/19 08/28/19 Rx subcutaneous solution .COMPLEX #40 ml spironolactone 25 mg tablet 25 mg PO BID #180 tab 03/02/19 08/28/19 Rx cholecalciferol (vitamin D3) 1,000 unit PO DAILY 04/03/19 08/28/19 History [Vitamin D3] levothyroxine 150 mcg tablet 150 mcg PO QAM #90 tab 05/18/19 08/28/19 Rx Advair HFA 1 puff INHALATION Q4 PRN 07/06/19 08/28/19 History Levemir U-100 Insulin 30 units SQ QPM 07/06/19 08/28/19 History cephalexin 500 mg capsule 500 mg PO qid 14 Days #56 cap 08/28/19 Rx cholecalciferol (vitamin D3) 25 mcg PO HS 08/28/19 08/28/19 History [Vitamin D3] atorvastatin 80 mg tablet 80 mg PO QPM #90 tab 08/31/19 Rx carvedilol 25 mg tablet See Rx Instructions PO DAILY #135 08/31/19 Rx tab clindamycin HCl 300 mg capsule 300 mg PO tid #30 cap 08/31/19 08/31/19 Rx clopidogrel 75 mg tablet 75 mg PO QAM #90 tab 08/31/19 Rx losartan 100 mg tablet 100 mg PO QAM #90 tab 08/31/19 Rx nifedipine 30 mg tablet,extended 30 mg PO HS #90 tab 08/31/19 Rx release omeprazole 20 mg capsule,delayed 20 mg PO HS #90 cap 08/31/19 Rx release Past Med/Surg History Medical History (Updated 09/01/19 @ 12:43 by Wesley Umana MD) Anemia CHRONIC; BASELINE HGB STABLE AT 9-10 RANGE PER CHART REVIEW Asthma CONTROLLED/LAST USE OF INHALER "A LONG TIME AGO" Chronic kidney disease STAGE III - FOLLOWS WITH NEPHRO- CREATINE USUALLY 1.3-1.5 Coronary artery disease NON-OBSTRUCTIVE CREST syndrome Diverticular disease GERD (gastroesophageal reflux disease) History of MRSA infection Hx of carotid stenosis BOTH SIDES - HAD LEFT CEA 2002 AND RIGHT CEA 1995 Hx of deep venous thrombosis 2018 R LE Hx of renal cell cancer R RENAL (2012) S/P R NEPHRECTOMY - NO RADIATION NO CHEMO Hyperlipidemia Hypertension Hypothyroidism PAD (peripheral artery disease) Peripheral neuropathy BILATERAL FEET AND LEGS Peripheral vascular disease Renal artery stenosis RIGHT KIDNEY STENT ATTEMPTED 2010; S/P RIGHT NEPHRECTOMY 2012 Type II diabetes mellitus INSULIN DEPENDENT Unstageable pressure ulcer of left heel (Acute) Wound infection RT FOOT Surgical History (Updated 08/31/19 @ 08:38 by Cheryl Lao PA-C) H/O carotid endarterectomy LEFT (2002), RIGHT (1995) History of amputation of lesser toe of right foot MULTIPLE TOE AMPUTATIONS/I&D (ALL RT TOES) History of angioplasty MULTIPLE OF LE'S WITH STENTS TO LOWER EXTREMITIES PLACED History of appendectomy History of atherectomy LEFT (02/2017) History of cardiac cath 2011= NO STENTS History of cataract surgery RT/LEFT History of cholecystectomy History of colonoscopy History of endoscopic sinus surgery History of hysterectomy MERYL W/ BSO History of nephrectomy RIGHT (2012) History of procedure for peripheral vascular disease LEFT POPLITEAL S/P PERONEAL ARTERY BYPASS 2012; RLE ANGIO WITH INTERVENTION 06/2017 History of tonsillectomy Hx of lumpectomy LEFT BREAST (BENIGN) Nausea and vomiting after administration of anesthetic agent S/P femoral-tibial bypass Family History Father Family hx of colon cancer Family history of diabetes mellitus Social History Preferred Language: Armenian Communication Ability: Effective Visual Impairment: No Limitations It Help Desk Technician Required: No Beliefs That Will Affect Care: None marital status: Current Living Situation: Spouse current occupational status: retired Feels Safe at Home: Yes Safety Concerns: Feels Safe At This Time Smoking Status: Never smoker Do You Dip or Chew Tobacco: No ; Second Hand Exposure: Yes ( A CHILD) ; Tobacco Cessation Education Requested by Patient: No Hx Alcohol Use: No Hx Substance Use: No during the past year weight has: remained stable Seatbelt Use: always Review of Systems All systems reviewed & are unremarkable except as noted in HPI & below Physical Exam Physical Exam: Constitutional: WD/WN, vitals as above healthy appearing Respiratory: normal respiratory effort, lungs clear to auscultation Cardiovascular: RRR, no murmur, no edema Vessels: posterior tibial pulses present (with doppler RLE) and dorsalis pedis pulses present (with doppler RLE); + abnormal peripheral pulses Extremities: normal capillary refill; no edema Gastrointestinal (Abdomen): normal bowel sounds, soft, nontender, no hepatosplenomegaly Musculoskeletal: Extremities: strength 5/5 throughout Skin: + wound (R plantar wound dry, pale pink tissue noted. No granualtion tissue seen. Severe local tenderness Heel eschar dry.) Neurologic: moves all extremities; no focal motor deficits Psychiatric: A+Ox3, euthymic affect
[2019-09-02] MEDS ORDERED: CEFAZOLIN 1000MG 1,000 MG/7.5 ML SYR IV SCH (06:00)
[2019-09-02] MEDS ORDERED: SODIUM CHLORIDE 0.9% 1000ML IV SCH (06:00)
--- NOTE | 2019-09-02 06:39 | XRay Report ---
XR chest 1V portable CLINICAL HISTORY: 74 years-old Female presenting with preop. TECHNIQUE: Portable upright AP view of the chest was obtained. COMPARISON: 01/15/[address] from 07/25/2018. FINDINGS: Atherosclerosis of the aortic arch. Cardiac silhouette top normal in size. No focal opacity. The pres ence of subsolid pulmonary nodules is better appreciated on prior chest CT from 07/25/2018. No large e ffusion or pneumothorax. Degenerative changes of the thoracic spine. Calcification in the left axilla unchanged, likely calcified lymph node. Upper abdomen normal. IMPRESSION: 1. No acute cardiopulmonary disease. 2. Subsolid pulmonary nodules on chest CT from 2019 not evident by radiograph. ACT 112: Negative or not required by law. Electronically signed by: Gustavo Macedo M.D. 09/02/2019 6:37 AM
[2019-09-02 06:44] LABS: Hematocrit (blood only) 32.9 % (37-47); Hemoglobin 10.8 g/dL (12.0-16.0); Mean Corpuscular Hemoglobin 30.1 pg (25-34); Mean Corpuscular Volume 91.6 fL (80-100); Mean Platelet Volume 9.8 fL (7.4-10.4); Platelet Count 281 K/uL (130-400); RDW Coefficient of Variation 13.4 % (11.5-14.5); RDW Standard Deviation 44.8 fL (36.4-46.3); Red Blood Count 3.59 M/uL (4.2-5.4); White Blood Count 9.83 K/uL (4.8-10.8)
[2019-09-02 06:59] LABS: BUN Creatinine Ratio 16.6 (10-20); Calcium 9.2 mg/dl (8.5-10.1); Creatinine Clr Calc Pharmacy 39.9 ml/min; Est GFR (African American) 55.8; Est GFR (Non-African American) 48.2; Potassium 4.4 mmol/L (3.5-5.1)
[2019-09-02 07:00] LABS: Mean Corpuscular Hgb Conc 32.8 g/dL (32-36)
[2019-09-02] MEDS ORDERED: ePHEDrine sulfate 50 MG/ML AMP IV PRN (07:00)
[2019-09-02] MEDS ORDERED: MEPERIDINE HCL 25 MG/ML CARP/VIAL IV PRN (07:00)
[2019-09-02] MEDS ORDERED: LABETALOL HCL IV 5 MG/ML 20ML IV PRN (07:00)
[2019-09-02] MEDS ORDERED: ATROPINE SULFATE 0.1 MG/ML 10ML SYR IV PRN (07:00)
[2019-09-02] MEDS ORDERED: fentaNYL citrate 100 MCG/2 ML VIAL IV PRN (07:00)
[2019-09-02] MEDS ORDERED: PHENYLEPHRINE 100MCG/ML 5ML SYR IV PRN (07:00)
[2019-09-02] MEDS ORDERED: ONDANSETRON INJ 2 MG/ML 2 ML VIAL IV PRN ×2 (07:00→10:29)
[2019-09-02] MEDS ORDERED: HYDROmorphone INJ 1 MG/ML SYRINGE IV PRN (07:00)
[2019-09-02] MEDS ORDERED: ROPIVACAINE 0.5% 5 MG/ML 30 ML VIAL ONE (07:02)
[2019-09-02] MEDS ORDERED: MIDAZOLAM HCL 1 MG/ML 2ML VIAL ONE (07:03)
[2019-09-02] MEDS ORDERED: fentaNYL citrate 100 MCG/2 ML VIAL ONE (07:04)
--- NOTE | 2019-09-02 07:09 | History & Physical Bridge Note ---
Date of Service September 02, 2019 History & Physical Bridge Note I have examined the patient, reviewed the History & Physical and in the interval since the performance of the History & Physical I have noted the following changes of clinical significance: no changes noted
[2019-09-02 07:30] LABS: INR 1.1 (0.9-1.1); Prothrombin Time 11.9 Seconds (9.0-12.0)
[2019-09-02] MEDS ORDERED: LIDOCAINE HCL 2% 2 ML VIAL/AMP(20MG/ML) INFIL ONE (08:44)
[2019-09-02] MEDS ORDERED: ONDANSETRON INJ 2 MG/ML 2 ML VIAL ONE (08:44)
[2019-09-02] MEDS ORDERED: ePHEDrine sulfate 50 MG/ML SYR ONE (08:44)
[2019-09-02] MEDS ORDERED: PROPOFOL IV EMULSION 10 MG/ML 20 ML VIAL IV ONE (08:44)
--- NOTE | 2019-09-02 09:03 | Operative Report ---
Post Operative Report Pre & Post Diagnosis Operation Date: 09/02/19 07:30 Pre-Op Diagnosis: Infected right foot wound with intractable pain Post-Op Diagnosis: Infected right foot wound with intractable pain I identified the patient and participated in the time-out.: Yes Procedure Operation Date: 09/02/19 07:30 Actual Procedures p Right Lower Extremity Below Knee Amputation(Right) - Wesley Umana MD Surgeon Wesley Umana MD Jockey Room Custodian None Estimated Blood Loss 100 Findings Consistent with Post-Op Diagnosis Specimens Right lower leg Anesthesia Type General Complications none Disposition Accompanied Patient To Recovery: No Disposition: Recovery Room Indications This is a 74-year-old female with an open wound of the plantar surface of her right foot that we have been treated for the last couple years with multiple vascular interventions and multiple debridements and amputations of the foot. She now has intractable pain and had a MRSA infection of the right foot. Involves most of the plantar aspect. At this point a below-knee amputation was recommended. I have discussed the risks options and benefits of the procedure with the patient. The patient understands the risks options and benefits and agrees to the procedure. Description of Procedure The patient was taken to the operating room and placed in the supine position. After general anesthesia was accomplished the right lower extremity was prepped and draped in a sterile manner. Patient was identified and a timeout was performed. The usual below-knee amputation was then made forming a posterior flap using the gastroc and the soleus muscles. The anterior compartment muscles were divided. They were viable and normal in appearance. The fibula was then divided with the power saw. Peroneal artery was clamped and divided and later tied. Tibia was then transected using a Gigli saw approximately 2 cm below the fibula. The anterior surface of the tibia was beveled upward no sharp edges were felt. Using the amputation knife the posterior flap was then performed using the gastroc and soleus as the flap. The soleus was slightly pale looking and most of this was debrided. Due to viability the flap from posterior was slightly rotated medially. Adequate hemostasis was then obtained. The flap fascia was then approximated to the anterior leg fascia using 3-0 Vicryl's. The medial dogear was then trimmed. This was then closed with 3-0 Vicryl after adequate hemostasis was obtained.. A flat Heather drain was placed in the depths of the wound and brought out through a separate stab wound. Skin edges were then approximated using stapling device. Sterile dressings were then applied. The patient left the operation room in satisfactory condition and tolerated the procedure well. All needle and sponge counts were correct at the end of the procedure. I attest to the content of the Intraoperative Record and any orders documented therein. Any exceptions are noted below.
--- NOTE | 2019-09-02 09:36 | Anesthesiology Progress Note ---
Date of Service September 02, 2019 Anesthesia Post Procedure Vital Signs Vital Signs: Temp Pulse Pulse Resp BP BP Pulse Ox 09/02/19 09:25 62 17 141/64 H 100 09/02/19 09:15 62 16 151/65 H 100 09/02/19 09:06 36.9 C 67 16 153/68 H 100 09/02/19 06:50 146/55 H 09/02/19 06:03 37.1 C 60 18 140/56 L 97 Pain Intensity Right Foot: Pain Intensity: 1 Transfer of Care Handoff Completed per policy Notes Mental Status: alert / awake / arousable Patient Amnestic to Procedure: Yes Nausea / Vomiting: adequately controlled Pain: adequately controlled Airway Patency, RR, SpO2: stable & adequate BP & HR: stable & adequate Hydration State: stable & adequate Anesthetic Complications: no major complications apparent and Pt Satisfied with anesthetic care
[2019-09-02] MEDS ORDERED: ALBUTEROL HFA 8 GM INHALER INH PRN (10:29)
[2019-09-02] MEDS ORDERED: CARBOHYDRATES FOR HYPOGLYCEMIA PO PRN (10:29)
[2019-09-02] MEDS ORDERED: GLUCOSE 10 TABS/TUBE PO PRN (10:29)
[2019-09-02] MEDS ORDERED: PHARMACY GLYCEMIC MGMT CONSULT PRN (10:29)
[2019-09-02] MEDS ORDERED: GLUCOSE 40% GEL 15 GM TUBE PO PRN (10:29)
[2019-09-02] MEDS ORDERED: GLUCAGON FOR INJ 1 MG VIAL SQ PRN (10:29)
[2019-09-02] MEDS ORDERED: DEXTROSE 50% 50 ML SYRINGE IV PRN (10:29)
[2019-09-02] MEDS: SODIUM CHLORIDE 0.9% 1000ML 1,000 ML IV SCH ×2 (10:31→17:37)
--- NOTE | 2019-09-02 11:12 | Pharmacy Report ---
Glycemic Control Consultation - Date of Service September 02, 2019 - Scope Scope: Glycemic Pharmacist consulted for glycemic control and to write orders per [facility] inpatient glycemic control protocol. - Objective Weight: 64.728 kg Accuchecks BSG (last 24hrs): 09/02/19 09/02/19 09/02/19 06:16 06:25 09:09 Glucose 157 H POC Glucose 130 H 169 H Laboratory Data (last 24hrs): 09/02/19 06:25 Potassium 4.4 Carbon Dioxide 26 Anion Gap 5.0 Creatinine 1.13 Est Cr Clr Drug Dosing 39.9 - Recent Pertinent Medications Outpatient Anti-diabetic Regimen: * Levemir 30 units Qpm, Lispro AC with CF of 30 CR of 5-7 * A1c = 7.0 % 05/15/19 Risk Factors for Insulin Resistance: * Recent Surgery: POD 0 * Diet: T2DM - Assessment & Plan Assessment & Plan: ASSESSMENT: * 74 year old with PMHx significant for CAD, DM2, ht, hld, renal cell CA, severe PAD. Now with foot infection requiring BKA. * Pharmacy consulted for glycemic management postop - Patient managed on levemir and lispro at home / confirmed dosing * Will start basal/bolus insulin postop. Patient reports 15 units of basal last evening (half of home dose) - fasting 130 mg/dL * Prior admissions indicate patient typically requires much less insulin while hospitalized. Therefore will hold further basal and add scale for this evening * Will utilize similar novolog parameters for CF/CR based upon other admissions - may need to titrate further PLAN FOR INPATIENT GLYCEMIC CONTROL: * Basal insulin * Levemir HS per scale (15-20 units based upon BSG scale) * Bolus insulin * NovoLog per scale ACHS or Q6hrs while NPO * Goal Range: Low 110 mg/dL - High 150 mg/dL * Correction Factor: 30 mg/dL/unit - loosened to 50 for HS time d/t concern for BSGs dropping overnight * Nutritional / Prandial insulin per carb ratio of 1 unit per 9 grams CHO consumed * Please note that the plan above was derived based on current level of insulin resistance and hospital stress. These recommendations are appropriate for inpatient admission only. Plan of care upon discharge will need to be reassessed to avoid potential outpatient hypo/hyperglycemia. Thank you.
[2019-09-02] MEDS: CLINDAMYCIN HCL 150 MG CAP PO SCH ×2 (12:15→20:18)
[2019-09-02] MEDS: INSULIN ASPART 100 UNITS/ML 3 ML PEN SC SCH ×3 (12:26→21:06)
[2019-09-02] MEDS: SPIRONOLACTONE 25 MG TAB PO SCH (17:11)
[2019-09-02] MEDS: HYDROmorphone INJ 0.5 MG/0.5 ML SYR IV PRN ×2 (17:41→20:15)
[2019-09-02] MEDS: carvediloL 25 MG TAB PO SCH (20:18)
[2019-09-02] MEDS: cephALEXin 500 MG CAP PO SCH (20:19)
[2019-09-02] MEDS: ATORVASTATIN 40 MG TAB PO SCH (20:20)
[2019-09-02] MEDS: NIFEdipine EXTENDED REL 30 MG TABCR PO SCH (20:20)
[2019-09-02] MEDS: PANTOprazole 40 MG TAB PO SCH (20:22)
[2019-09-02] MEDS: CHOLECALCIFEROL 1,000 UNITS 25 MCG TAB PO SCH (20:23)
[2019-09-02] MEDS ORDERED: HYDROmorphone INJ 0.5 MG/0.5 ML SYR ONE (20:45)
[2019-09-02] MEDS ORDERED: INSULIN DETEMIR SQ SCH (21:00)
[2019-09-02] MEDS: INSULIN DETEMIR FLEXPEN/FLEX TOUCH 100 UNITS/ML 3ML SC SCH (21:05)
[2019-09-02] MEDS: HYDROmorphone INJ 1 MG/ML SYRINGE IV PRN (22:51)
[2019-09-03] MEDS: HYDROmorphone INJ 1 MG/ML SYRINGE IV PRN ×9 (01:13→23:52)
[2019-09-03] MEDS ORDERED: HydrALAZINE HCL 20 MG/ML VIAL IV STA (03:32)
[2019-09-03] MEDS: LEVOTHYROXINE SODIUM 150 MCG TABLET PO SCH (06:06)
[2019-09-03 06:59] LABS: Estimated Average Glucose 186 mg/dl; Hemoglobin A1C 8.1 % (4.5-5.6)
[2019-09-03 07:11] LABS: Creatinine Clr Calc Pharmacy 44.2 ml/min; Est GFR (African American) 63.2; Est GFR (Non-African American) 54.5
[2019-09-03] MEDS: LOSARTAN POTASSIUM 50 MG TAB PO SCH (08:21)
[2019-09-03] MEDS: cephALEXin 500 MG CAP PO SCH ×2 (08:21→20:46)
[2019-09-03] MEDS: CLOPIDOGREL BISULFATE 75 MG TAB PO SCH (08:21)
[2019-09-03] MEDS: CLINDAMYCIN HCL 150 MG CAP PO SCH ×3 (08:22→20:46)
[2019-09-03] MEDS: carvediloL 25 MG TAB PO SCH ×2 (08:22→20:52)
[2019-09-03] MEDS: SPIRONOLACTONE 25 MG TAB PO SCH ×2 (08:23→18:02)
[2019-09-03] MEDS: INSULIN ASPART 100 UNITS/ML 3 ML PEN SC SCH ×4 (08:24→20:43)
[2019-09-03] MEDS ORDERED: FLUTICASONE/VILANTEROL 100/25MCG 14 PUFFS/INHALER INH PRN (09:00)
--- NOTE | 2019-09-03 11:57 | Surgery Progress Note ---
Date of Service September 03, 2019 Assessment & Plan (1) Atherosclerosis of artery of extremity with rest pain: This patient is 1 day after below-knee amputation of the right lower extremity. Drain has minimal drainage seen. We will change the dressing tomorrow and examined the incision site. Subjective This patient did have pain immediately postoperative but feels much better today. The pain is tolerable and manageable with her pain medication. Physical Exam Musculoskeletal: Her right stump dressing is intact. There is no evidence of bleeding. It is not tight on exam. Results & Data Vital Signs (Past 12 Hours) Vital Signs Temp Pulse Resp BP BP Pulse Ox 09/03/19 11:19 36.8 C 63 20 132/60 96 09/03/19 07:17 36.9 C 75 18 171/69 H 92 09/03/19 05:00 165/64 H 09/03/19 03:20 196/78 H 09/03/19 03:08 36.7 C 75 16 204/75 H 93
--- NOTE | 2019-09-03 13:06 | Pharmacy Report ---
Pharmacy Glycemic Short Note 2 - Date of Service September 03, 2019 - Glycemic Short BSG Results (Last 24 hours): 09/02/19 09/02/19 09/03/19 16:49 21:04 08:01 POC Glucose 258 H 182 H 262 H 09/03/19 11:59 POC Glucose 184 H OUTPATIENT ANTIDIABETIC REGIMEN: * Insulin Levemir 30 units QPM * Insulin Lispro CF = 30, CR 5-7 before meals ASSESSMENT: * 74 y/o patient admitted for R BKA. Today is post op day 1. Patient w/ history of Type 2 DM managed at home with insulins Levemir and Lispro. * Yesterday, patient received 20 units of basal Levemir and 11 units of bolus Novolog= total 31 units. * Fasting BSG this AM reported to be 262. I checked with the nurse who asked the patient if she had anything to eat before breakfast. Patient denied it. It would have been good to re-check the BSG this morning to confirm the high number, but patient had already eaten her breakfast by the time I called. * Lunch BSG is more reasonable at 184. Post-prandials BSGs were at dinner yesterday was elevated as well. * Novolog carb ratio was tightened to 8 with lunch today. PLAN FOR INPATIENT GLYCEMIC CONTROL: * Basal insulin * Levemir 15 or 20 units SQ HS based on BSG scale. Scale was tightened today. * Bolus insulin: tightened CR * NovoLog per scale ACHS or Q6hrs while NPO * Goal Range: Low 110 mg/dL - High 150 mg/dL * Correction Factor: 30 mg/dL/unit * Nutritional / Prandial insulin per carb ratio of 1 unit per 8 grams CHO consumed PLAN FOR DISCHARGE: * HbA1c = 8.1% on 09/03/19 * Goal A1c can be less than 8% given patient's age and co-morbidities. Recommend continue current anti-diabetic meds with Insulin Levemir at HS and Lispro before meals. * Levemir 20 to 30 units based on a BSG scale. Would emphasize importance of SMBG and taking Lispro doses AC based on BSGs.
[2019-09-03] MEDS: INSULIN DETEMIR FLEXPEN/FLEX TOUCH 100 UNITS/ML 3ML SC SCH (20:42)
[2019-09-03] MEDS: CHOLECALCIFEROL 1,000 UNITS 25 MCG TAB PO SCH (20:46)
[2019-09-03] MEDS: ATORVASTATIN 40 MG TAB PO SCH (20:46)
[2019-09-03] MEDS: PANTOprazole 40 MG TAB PO SCH (20:46)
[2019-09-03] MEDS: NIFEdipine EXTENDED REL 30 MG TABCR PO SCH (20:47)
[2019-09-04] MEDS: HYDROmorphone INJ 1 MG/ML SYRINGE IV PRN ×2 (03:19→07:32)
[2019-09-04 05:46] LABS: Creatinine Clr Calc Pharmacy 41.4 ml/min; Est GFR (African American) 58.3; Est GFR (Non-African American) 50.3
[2019-09-04] MEDS: LEVOTHYROXINE SODIUM 150 MCG TABLET PO SCH (06:30)
[2019-09-04] MEDS: SPIRONOLACTONE 25 MG TAB PO SCH ×2 (08:10→18:00)
[2019-09-04] MEDS: CLOPIDOGREL BISULFATE 75 MG TAB PO SCH (08:10)
[2019-09-04] MEDS: cephALEXin 500 MG CAP PO SCH ×2 (08:10→21:10)
[2019-09-04] MEDS: LOSARTAN POTASSIUM 50 MG TAB PO SCH (08:10)
[2019-09-04] MEDS: carvediloL 25 MG TAB PO SCH ×2 (08:10→21:10)
[2019-09-04] MEDS: CLINDAMYCIN HCL 150 MG CAP PO SCH ×3 (08:11→21:09)
[2019-09-04] MEDS: INSULIN ASPART 100 UNITS/ML 3 ML PEN SC SCH ×4 (08:25→21:17)
--- NOTE | 2019-09-04 09:00 | Pharmacy Report ---
Pharmacy Glycemic Short Note 2 - Date of Service September 04, 2019 - Glycemic Short BSG Results (Last 24 hours): 09/03/19 09/03/19 09/03/19 11:59 17:00 20:32 POC Glucose 184 H 178 H 282 H 09/04/19 08:02 POC Glucose 125 H OUTPATIENT ANTIDIABETIC REGIMEN: * Insulin Levemir 30 units QPM * Insulin Lispro CF = 30, CR 5-7 before meals ASSESSMENT: * 74 y/o patient admitted for R BKA. Today is post op day 2. Patient w/ history of Type 2 DM managed at home with insulins Levemir and Lispro. * Yesterday, patient received 20 units of basal Levemir and 23 units of bolus Novolog= total 43 units. * Fasting BSG this AM rin goal range with current basal orders of Levemir 20 units SQ HS (slightly reduced outpatient dosing d/t controlled CHO intake in house) * Post-prandial BSGs slightly elevated yesterday but Novolog carb ratio was tightened to 8 with lunch yesterday. Should see an improvement today. If not, will further tighten CR to 7. PLAN FOR INPATIENT GLYCEMIC CONTROL: * Basal insulin * Levemir 15 or 20 units SQ HS based on BSG scale. * BSG < 140 give Levemir 15 units * BSG 140 or above give Levemir 20 units * Bolus insulin: will further tighten CR to 7 if lunch BSG > 180 * NovoLog per scale ACHS or Q6hrs while NPO * Goal Range: Low 110 mg/dL - High 150 mg/dL * Correction Factor: 30 mg/dL/unit * Nutritional / Prandial insulin per carb ratio of 1 unit per 8 grams CHO consumed PLAN FOR DISCHARGE: * HbA1c = 8.1% on 09/03/19 * Goal A1c can be less than 8% given patient's age and co-morbidities. Recommend continue current anti-diabetic meds with Insulin Levemir at HS and Lispro before meals. * Levemir 20 to 30 units based on a BSG scale. Would emphasize importance of SMBG and taking Lispro doses AC based on BSGs.
--- NOTE | 2019-09-04 09:37 | Surgery Progress Note ---
Date of Service September 04, 2019 Assessment & Plan (1) Below knee amputation: Stump healing nicely. It is viable with no drainage. J-P drain removed. Will send to rehab tomorrow if she can be on oral pain meds. Subjective Pain improving. Would like to go to rehab when possible Physical Exam Constitutional: WD/WN, vitals as above Respiratory: normal respiratory effort, lungs clear to auscultation Cardiovascular: RRR, no murmur, no edema Musculoskeletal: Right stump incision dry and clean. No ischemia noted. No drainage from drain Results & Data Vital Signs (Past 12 Hours) Vital Signs Temp Pulse Pulse Pulse Resp BP Pulse Ox 09/04/19 07:30 36.7 C 62 16 131/63 94 09/04/19 01:07 62 143/66 H 09/03/19 23:28 37.1 C 63 16 182/66 H 93
[2019-09-04] MEDS ORDERED: HYDROmorphone INJ 1 MG/ML SYRINGE IV PRN (09:40)
[2019-09-04] MEDS: OXYCODONE/ACETAMINOPHEN 5mg/325mg TAB PO PRN ×3 (10:03→17:59)
[2019-09-04] MEDS: ATORVASTATIN 40 MG TAB PO SCH (21:11)
[2019-09-04] MEDS: NIFEdipine EXTENDED REL 30 MG TABCR PO SCH (21:11)
[2019-09-04] MEDS: CHOLECALCIFEROL 1,000 UNITS 25 MCG TAB PO SCH (21:12)
[2019-09-04] MEDS: PANTOprazole 40 MG TAB PO SCH (21:12)
[2019-09-04] MEDS: INSULIN DETEMIR FLEXPEN/FLEX TOUCH 100 UNITS/ML 3ML SC SCH (21:18)
[2019-09-05] MEDS: OXYCODONE/ACETAMINOPHEN 5mg/325mg TAB PO PRN ×3 (01:24→13:12)
[2019-09-05 05:52] LABS: Creatinine Clr Calc Pharmacy 37.6 ml/min; Est GFR (African American) 51.9; Est GFR (Non-African American) 44.8
[2019-09-05] MEDS: LEVOTHYROXINE SODIUM 150 MCG TABLET PO SCH (06:10)
[2019-09-05] MEDS ORDERED: bisacodyL 10 MG SUPP PR STA (08:34)
--- NOTE | 2019-09-05 08:34 | Surgery Progress Note ---
Date of Service September 05, 2019 Assessment & Plan (1) Below knee amputation: Stump healing nicely. To go to rehab today. Subjective Pain improving. Controlled with oral pain meds Physical Exam Constitutional: WD/WN, vitals as above Respiratory: normal respiratory effort, lungs clear to auscultation Cardiovascular: RRR, no murmur, no edema Musculoskeletal: Stump incision dry and clean. Results & Data Vital Signs (Past 12 Hours) Vital Signs Temp Pulse Pulse Resp BP BP Pulse Ox 09/05/19 07:39 36.7 C 58 L 16 122/66 95 09/05/19 00:48 36.7 C 60 15 154/70 H 96
[2019-09-05] MEDS: CLINDAMYCIN HCL 150 MG CAP PO SCH ×2 (10:03→13:12)
[2019-09-05] MEDS: CLOPIDOGREL BISULFATE 75 MG TAB PO SCH (10:04)
[2019-09-05] MEDS: LOSARTAN POTASSIUM 50 MG TAB PO SCH (10:04)
[2019-09-05] MEDS: SPIRONOLACTONE 25 MG TAB PO SCH (10:04)
[2019-09-05] MEDS: cephALEXin 500 MG CAP PO SCH (10:04)
[2019-09-05] MEDS: INSULIN ASPART 100 UNITS/ML 3 ML PEN SC SCH ×2 (10:06→13:13)
[2019-09-05] MEDS: carvediloL 25 MG TAB PO SCH (10:06)
--- NOTE | 2019-09-07 10:12 | Discharge Summary ---
Date of Service September 07, 2019 Admission HPI Per Admitting Provider This is a 74 yo f with multiple medical problems, including CAD, DMII, carotid stenosis, hx of HTN, dyslipidemia, renal cell ca, CREST syndrome, and severe PAD requiring multiple revascularization procedures. She has had multiple procedures of revascularization, most recently with L iliac and peroneal art angio with stenting. Most recent open procedure was RLE fem-tib insitu bypass done in May 2019 which was noted to be occluded at follow up visit at the end of June 2019. Pt has been advised that there are no further options available for revasc of RLE and that local wound care is recommended. She now has developed MRSA infection of the open foot wound and intractable pain. We recommended a right BKA which can not wait due to the intractable pain and infected wound. Pt denies any other complaints Admission Exam Per Admitting Provider Constitutional: WD/WN, vitals as above healthy appearing Respiratory: normal respiratory effort, lungs clear to auscultation Cardiovascular: RRR, no murmur, no edema Vessels: posterior tibial pulses present (with doppler RLE) and dorsalis pedis pulses present (with doppler RLE); + abnormal peripheral pulses Extremities: normal capillary refill; no edema Gastrointestinal (Abdomen): normal bowel sounds, soft, nontender, no hepatosplenomegaly Musculoskeletal: Extremities: strength 5/5 throughout Skin: + wound (R plantar wound dry, pale pink tissue noted. No granualtion tissue seen. Severe local tenderness Heel eschar dry.) Neurologic: moves all extremities; no focal motor deficits Psychiatric: A+Ox3, euthymic affect Principal Diagnosis 1. s/p RLE BKA 2. Severe RLE PAD with rest pain and infected nonhealing wounds Discharge Exam Constitutional WD/WN, vitals as above Respiratory normal respiratory effort, lungs clear to auscultation Cardiovascular Rate/Rhythm: regular rate and regular rhythm Skin + incision (RLE BKA C/I, minimal bloody drainage. +tender, mild local edema) Discharge Data Allergies Allergy/AdvReac Type Severity Reaction Status Date / Time enflurane Allergy Severe NAUSEA, Verified 09/02/19 06:23 jaundiced Iodinated Contrast Media Allergy Intermediate HIVES - Verified 09/02/19 06:23 IVP DYE CHECO Inhibitors Allergy Mild hives Verified 09/02/19 06:23 nickel Allergy Mild REDNESS Verified 09/02/19 06:23 AND ITCHING liraglutide [From Victoza] AdvReac Mild SEVERE Verified 09/02/19 06:23 NAUSEA Consultations 09/02/19 10:29 Consult Case Management - Discharge Planning Routine Procedures Performed Operation Date: 09/02/19 07:30 Actual Procedures p Right Lower Extremity Below Knee Amputation(Right) - Wesley Umana MD Ordered Studies 09/02/19 07:01 US - OR guided needle placemen Routine Hospital Course (1) Below knee amputation: Stump healing nicely. Pt d/c to rehab POD #3. Total Time Total Time Spent Total Time Spent (In Minutes): 0 Discharge Plan Discharge Items Patient Disposition: Transfer Inpatient Rehab Fac Reason For Visit: Right Lower Extremity Infunction/Rest Pain Discharge Diagnosis: Right below the knee amputation Activity: Per Instructions section Lifting: None Bathing: May shower/bathe in 3 days Weightbearing: Full weightbearing Non-emergency contact: Surgeon Call non-emergency contact if: you have any medication questions, your symptoms worsen, your pain is not controlled, your pain is worsening, your pain is concerning for you, your wound has increased redness, your wound has increased drainage and your wound pain has increased Follow-up/Referrals: Agustín Jarvis MD [Primary Care Provider] - Diet: Carb Consistent or DM2 and Heart Healthy Addtl Attending Provider Instructions: ACTIVITY RECOMMENDATIONS: See Above SPECIAL CARE INSTRUCTIONS: Call your doctor if: * Temperature above 101 degrees * Pain not relieved by pain medicine ordered * There is increased drainage or redness from any incision * You have any unanswered questions or concerns. Call [phone] to schedule a follow up appointment if one not already scheduled. Pending Studies at Discharge: No Stand-Alone Forms: [facility] Skilled Items Patient informed of condition?: Yes DNR: No Discharge Level of Care: Acute rehab Communicable Disease: No Discharge Prognosis: Improving Lines: None Urinary Catheter: No Medications and DC Order Prescriptions: New oxycodone-acetaminophen [Percocet] 5-325 mg Tablet 2 tab PO Q4H PRN (Reason: pain) Qty: 60 RF: 0 Continued clindamycin HCl 300 mg capsule 300 mg PO tid Qty: 30 RF: 0 insulin lispro 100 unit/mL solution See Patient Comments .ROUTE .COMPLEX Qty: 40 RF: 3 spironolactone 25 mg tablet 25 mg PO BID Qty: 180 RF: 3 cephalexin [Keflex] 500 mg capsule 500 mg PO qid 14 Days Qty: 56 RF: 0 omeprazole 20 mg capsule,delayed release(DR/EC) 20 mg PO HS Qty: 90 RF: 3 nifedipine 30 mg tablet extended release 30 mg PO HS Qty: 90 RF: 3 clopidogrel [Plavix] 75 mg tablet 75 mg PO QAM Qty: 90 RF: 3 losartan 100 mg tablet 100 mg PO QAM Qty: 90 RF: 3 carvedilol [Coreg] 25 mg tablet See Rx Instructions PO DAILY Qty: 135 RF: 3 atorvastatin 80 mg tablet 80 mg PO QPM Qty: 90 RF: 3 albuterol sulfate 90 mcg/actuation HFA aerosol inhaler 2 puffs inhalation Q4H PRN (Reason: shortness of breath or wheezing) Qty: 18 RF: 3 levothyroxine 150 mcg tablet 150 mcg PO QAM Qty: 90 RF: 3 Advair HFA 45-21 mcg/actuation Hfa Aerosol Inhaler 1 puff INHALATION Q4 PRN (Reason: Shortness Of Breath) RF: 0 Levemir U-100 Insulin 100 unit/mL solution 30 units SQ QPM RF: 0 cholecalciferol (vitamin D3) [Vitamin D3] 25 mcg (1,000 unit) Tablet 25 mcg PO HS RF: 0 Discharge Orders: Discharge Order (Routine); Ordered 09/05/19 Ordered By: Wesley Umana Admission Data Admit Date/Time: 09/02/19 10:41 Attending Provider: Wesley Umana Admit Provider: Wesley Umana Primary Care Provider: Agustín Jarvis Other Providers: Berkley Kenyon Other Interventions: Discharge Summary Assessment (RN) Last Done: 09/05/19 11:17 DC Date/Time DO NOT enter until pt leaves facility: 09/05/19 14:03
== END 2019-09-05 14:03 | DRG 241 ==
LOC: ASU 05:52 → 3E 10:41

== ENCOUNTER 2022-12-20 12:08 | Inpatient (IN) ==
--- NOTE | 2022-12-20 13:17 | Emergency Department Note ---
History of Present Illness General Chief complaint: Leg Injury/Pain Stated complaint: REF BY DOC; LEFT FOOT/LEG PAIN Time Seen by Provider: 12/20/22 13:11 History of Present Illness Maximum Pain Intensity: 8 This 77-year-old female patient presents to the emergency department for evaluation of left foot and leg pain. History of crest syndrome, Raynaud's, diabetes, renal cell carcinoma, chronic refractory osteomyelitis severe PAD with prior BKA amputation on the right. She states that she was sent over from the wound care center. Wounds are currently being dressed with Betadine eschar and Aquacel Ag to open areas. She has been having issues with her left toes, foot, and leg for the past 3 weeks. The patient is concerned for circulation issues or gangrene. The patient has wounds on her left great toe as well as her third, fourth, and fifth toes. The wound care clinic thinks her wounds are worsening per patient. She denies any fevers or chills. There has been some intermittent drainage. She was prescribed clindamycin 2.5 days ago. Noticed mild improvement of the redness to her left leg, but no change in the left foot. Rates her discomfort as 8/10. She has been Tramadol with improvement of her pain. She is on Plavix currently. She denies any chest pain or shortness of breath. No cough or URI symptoms. Denies any abdominal pain, nausea, or vomiting. She follows with Dr. Umana regarding arterial status. Her last arterial ultrasound was October 18, 2022 which showed a 75 to 99% stenosis of the outflow peroneal artery just distal to the anastomosis, but no significant change compared to 06/14/2022. Last note from Dr. Umana's office on 11/13/2022 which r ecommended 6-month repeat ultrasound and follow-up. She states she called Dr. Umana's office regarding the poor healing of her wounds and was seen 2 days ago, but I do not have access to those records at this time. Patient was apparently placed on a course of clindamycin for cellulitis, and is scheduled to follow-up with him again next week. Per the patient, if the wounds do not improve she may need an angiogram. She denies any imaging or vascular studies performed at her visit 2 days ago, but I do not have records to confirm. She was seen by the wound clinic today for her diabetic foot ulcers that have deteriorated in the setting of peripheral arterial disease with development of gangrene of the toes. Per wound care note, they were concerned for limb threatening disease and deterioration of the foot and referred her to the emergency department. Home Medications Medication Instructions Recorded Confirmed Type blood sugar diagnostic (Contour #[id number] ea 08/08/20 12/05/22 Rx Test Strips) glucagon HCl 1 mg solution for 1 mg subcut Q20M PRN hypoglycemia 06/29/21 12/20/22 Rx injection (Glucagon (HCl) #1 ea Emergency Kit) albuterol sulfate 90 mcg/actuation 2 puff inhalation Q4H PRN 07/03/21 12/20/22 Rx aerosol inhaler shortness of breath or wheezing #18 grams insulin detemir U-100 100 unit/mL See Rx Instructions subcut QPM #4 07/05/21 12/20/22 Rx subcutaneous solution (Levemir vials U-100 Insulin) Prosthetic gel liners #2 ea 12/11/21 12/05/22 Rx Suspension sleeves #2 ea 12/11/21 12/05/22 Rx omeprazole 20 mg capsule,delayed 20 mg PO HS #90 caps 01/01/22 12/20/22 Rx release insulin lispro 100 unit/mL 1 sliding scale dose subcut 02/16/22 12/20/22 History subcutaneous solution (Humalog USEASDIRECTD U-100 Insulin) atorvastatin 80 mg tablet 80 mg PO QPM #90 tabs 02/23/22 12/20/22 Rx cholecalciferol (vitamin D3) 25 1,000 unit PO DAILY 06/19/22 12/20/22 History mcg (1,000 unit) capsule (Vitamin D3) losartan 100 mg tablet (Cozaar) 100 mg PO QAM 06/25/22 12/20/22 History clopidogrel 75 mg tablet (Plavix) 75 mg PO QAM #90 tabs 07/12/22 12/20/22 Rx levothyroxine 100 mcg tablet 100 mcg PO DAILY #90 tabs 09/17/22 12/20/22 Rx docusate sodium 100 mg capsule 100 mg PO DAILY 10/25/22 12/20/22 History (Dulcolax Stool Softener (docusate)) nifedipine 60 mg tablet,extended 60 mg PO HS #90 tabs 10/31/22 12/20/22 Rx release tramadol 50 mg tablet See Rx Instructions PO QID PRN 11/14/22 12/20/22 Rx pain #40 tabs R BKA prosthesis S88.111A #1 ea 11/27/22 12/05/22 Rx carvedilol 25 mg tablet (Coreg) 25 mg PO BID 11/28/22 12/20/22 History gabapentin 100 mg capsule 100 mg PO .COMPLEX #270 caps 12/05/22 12/20/22 Rx clindamycin HCl 300 mg capsule 300 mg PO QID 12/20/22 12/20/22 History mometasone-formoterol HFA 200 2 puff inhalation BID PRN Other 12/20/22 12/20/22 History mcg-5 mcg/actuation aerosol inhaler (Dulera) spironolactone 25 mg tablet 25 mg PO BID 12/20/22 12/20/22 History Allergies Allergy/AdvReac Type Severity Reaction Status Date / Time enflurane Allergy Severe NAUSEA, Verified 12/20/22 11:22 jaundiced Iodinated Contrast Media Allergy Intermediate HIVES - Verified 12/20/22 11:22 IVP DYE CHECO Inhibitors Allergy Mild hives Verified 12/20/22 11:22 nickel Allergy Mild REDNESS Verified 12/20/22 11:22 AND ITCHING liraglutide [From Victoza] AdvReac Mild SEVERE Verified 12/20/22 11:22 NAUSEA Past Med/Surg History Medical History Anemia CHRONIC; BASELINE HGB STABLE AT 9-10 RANGE PER CHART REVIEW Asthma CONTROLLED/LAST USE OF INHALER "A LONG TIME AGO" Below-knee amputation of right lower extremity Cerebral aneurysm Chronic kidney disease STAGE III - FOLLOWS WITH NEPHRO- CREATINE USUALLY 1.3-1.5 Conductive hearing loss of right ear Constipation CREST syndrome Deep vein thrombosis RLE DVT DX'D 01/2018; CHRONIC-- ON XARELTO BID (PCP/VASCULAR MONITORING) Diabetes IDDM Diverticular disease GERD (gastroesophageal reflux disease) History of MRSA infection April 2017 (right foot - has since been amputated) --> no active infection. Hx of carotid stenosis BOTH SIDES - HAD LEFT CEA 2002 AND RIGHT CEA 1995 Hx of deep venous thrombosis 2017 R LE Hx of renal cell cancer R RENAL (2012) S/P R NEPHRECTOMY - NO RADIATION NO CHEMO Hyperkalemia Hyperlipidemia Hypertension Hypertensive urgency Hypothyroidism Occlusion and stenosis of carotid artery with cerebral infarction On anticoagulant therapy Osteoporosis Otalgia, left ear PAD (peripheral artery disease) Pressure ulcer of right foot, stage 2 Raynauds syndrome Renal artery stenosis RIGHT KIDNEY STENT ATTEMPTED 2010; S/P RIGHT NEPHRECTOMY 2012 Right lumbar radiculitis S/P angiogram of extremity left leg Scleroderma TMJ derangement Tympanic membrane perforation Vertigo Surgical History H/O carotid endarterectomy LEFT (2002), RIGHT (1995) H/O sinus surgery History of amputation of lesser toe of right foot MULTIPLE TOE AMPUTATIONS/I&D (ALL RT TOES) History of angioplasty MULTIPLE OF LE'S WITH STENTS TO LOWER EXTREMITIES PLACED History of appendectomy History of atherectomy LEFT (02/2017) History of cardiac cath 2011= NO STENTS (C) History of carpal tunnel surgery RIGHT HAND, TRIGGER RIGHT FINGER History of cataract surgery RT/LEFT History of cholecystectomy History of colonoscopy History of endoscopic sinus surgery History of esophagogastroduodenoscopy (EGD) History of hysterectomy MERYL W/ BSO History of left breast biopsy 1998 History of nephrectomy RIGHT (2012) History of oophorectomy B/L OVARIES History of procedure for peripheral vascular disease LEFT POPLITEAL S/P PERONEAL ARTERY BYPASS 2012; RLE ANGIO WITH INTERVENTION 06/2017 History of tonsillectomy Hx of lumpectomy LEFT BREAST (BENIGN) Nausea and vomiting after administration of anesthetic agent S/P amputation right Below the knee amputation Family History Father Family hx of colon cancer Family history of diabetes mellitus Mother Lung cancer Stroke Unknown Rheumatoid arthritis Other No family history of adverse response to anesthesia No family history of bleeding disorder Social History Smoking Status: Never smoker Second Hand Exposure: No; Do You Dip or Chew Tobacco: No; Hx Alcohol Use: No Hx Substance Use: No Preferred Language: Faroese Communication Ability: Effective Visual Impairment: No Limitations Hearing Ability: Normal Pattern Hand Required: No Beliefs That Will Affect Care: None marital status: Current Living Situation: Spouse current occupational status: retired How many Children do You have: 0 How many Children do You have Comment: able to assist with care as needed. Feels Safe at Home: Yes Diet: diabetic during the past year weight has: decreased > 10 lbs Seatbelt Use: always Do you think of yourself as: straight/heterosexual Gender Identity: Female Assistive Devices: Glasses, Prosthesis, Walker and Wheelchair Review of Systems See HPI for pertinent positives & negatives. Physical Exam Vital Signs Vital Signs - 24 hr 12/20/22 12:24 12/20/22 12:29 12/20/22 14:05 Temperature 36.8 C Temperature Source Temporal Artery Scan Pulse Rate 62 59 L 62 Pulse Rate from SpO2 Sensor Pulse Rhythm Regular Pulse Strength Normal Respiratory Rate 18 Respiratory Effort / Characteristics Non-Labored Spontaneous Respiratory Depth Normal Respiratory Pattern Regular Blood Pressure 175/111 H Blood Pressure Mean 132 Blood Pressure Position Sitting Pulse Oximetry 99 Oxygen Delivery Method Room Air Room Air Sepsis Recent Fever Within 48 Hours No Sepsis New/Unexplained Change in Mental Status No Sepsis Action Taken by Nursing No Action Required 12/20/22 13:51 12/20/22 13:52 12/20/22 13:52 Temperature Temperature Source Pulse Rate 60 62 Pulse Rate from SpO2 Sensor Pulse Rhythm Pulse Strength Respiratory Rate 21 14 Respiratory Effort / Characteristics Respiratory Depth Respiratory Pattern Blood Pressure 178/79 H Blood Pressure Mean 141 Blood Pressure Position Pulse Oximetry 95 Oxygen Delivery Method Sepsis Recent Fever Within 48 Hours Sepsis New/Unexplained Change in Mental Status Sepsis Action Taken by Nursing 12/20/22 14:00 12/20/22 14:10 12/20/22 14:20 Temperature Temperature Source Pulse Rate 60 59 L 60 Pulse Rate from SpO2 Sensor 59 L 57 L 58 L Pulse Rhythm Pulse Strength Respiratory Rate 22 10 L 18 Respiratory Effort / Characteristics Respiratory Depth Respiratory Pattern Blood Pressure Blood Pressure Mean Blood Pressure Position Pulse Oximetry 100 97 96 Oxygen Delivery Method Sepsis Recent Fever Within 48 Hours Sepsis New/Unexplained Change in Mental Status Sepsis Action Taken by Nursing 12/20/22 14:30 12/20/22 14:40 12/20/22 15:54 Temperature Temperature Source Pulse Rate 57 L 56 L 60 Pulse Rate from SpO2 Sensor 57 L Pulse Rhythm Pulse Strength Respiratory Rate 22 19 115 H Respiratory Effort / Characteristics Respiratory Depth Respiratory Pattern Blood Pressure Blood Pressure Mean Blood Pressure Position Pulse Oximetry 95 Oxygen Delivery Method Sepsis Recent Fever Within 48 Hours Sepsis New/Unexplained Change in Mental Status Sepsis Action Taken by Nursing 12/20/22 16:00 12/20/22 16:00 12/20/22 16:10 Temperature Temperature Source Pulse Rate 56 L 56 L Pulse Rate from SpO2 Sensor 57 L 56 L Pulse Rhythm Pulse Strength Respiratory Rate 16 15 Respiratory Effort / Characteristics Respiratory Depth Respiratory Pattern Blood Pressure 197/70 H Blood Pressure Mean 95 Blood Pressure Position Pulse Oximetry 96 93 Oxygen Delivery Method Sepsis Recent Fever Within 48 Hours Sepsis New/Unexplained Change in Mental Status Sepsis Action Taken by Nursing 12/20/22 16:20 12/20/22 16:30 12/20/22 16:30 Temperature Temperature Source Pulse Rate 59 L 59 L Pulse Rate from SpO2 Sensor 59 L 60 Pulse Rhythm Pulse Strength Respiratory Rate 18 17 Respiratory Effort / Characteristics Respiratory Depth Respiratory Pattern Blood Pressure 196/96 H Blood Pressure Mean 152 Blood Pressure Position Pulse Oximetry 97 97 Oxygen Delivery Method Sepsis Recent Fever Within 48 Hours Sepsis New/Unexplained Change in Mental Status Sepsis Action Taken by Nursing 12/20/22 16:40 12/20/22 16:50 12/20/22 17:00 Temperature Temperature Source Pulse Rate 64 58 L Pulse Rate from SpO2 Sensor 59 L 59 L Pulse Rhythm Pulse Strength Respiratory Rate 17 19 Respiratory Effort / Characteristics Respiratory Depth Respiratory Pattern Blood Pressure 184/110 H Blood Pressure Mean 141 Blood Pressure Position Pulse Oximetry 96 97 Oxygen Delivery Method Sepsis Recent Fever Within 48 Hours Sepsis New/Unexplained Change in Mental Status Sepsis Action Taken by Nursing 12/20/22 17:00 12/20/22 17:10 12/20/22 17:20 Temperature Temperature Source Pulse Rate 60 70 58 L Pulse Rate from SpO2 Sensor 60 70 58 L Pulse Rhythm Pulse Strength Respiratory Rate 19 13 19 Respiratory Effort / Characteristics Respiratory Depth Respiratory Pattern Blood Pressure Blood Pressure Mean Blood Pressure Position Pulse Oximetry 97 98 95 Oxygen Delivery Method Sepsis Recent Fever Within 48 Hours Sepsis New/Unexplained Change in Mental Status Sepsis Action Taken by Nursing 12/20/22 17:30 12/20/22 17:30 12/20/22 17:40 Temperature Temperature Source Pulse Rate 57 L 60 Pulse Rate from SpO2 Sensor 58 L 60 Pulse Rhythm Pulse Strength Respiratory Rate 17 18 Respiratory Effort / Characteristics Respiratory Depth Respiratory Pattern Blood Pressure 176/70 H Blood Pressure Mean 122 Blood Pressure Position Pulse Oximetry 97 97 Oxygen Delivery Method Sepsis Recent Fever Within 48 Hours Sepsis New/Unexplained Change in Mental Status Sepsis Action Taken by Nursing 12/20/22 17:50 Temperature Temperature Source Pulse Rate 56 L Pulse Rate from SpO2 Sensor 56 L Pulse Rhythm Pulse Strength Respiratory Rate 20 Respiratory Effort / Characteristics Respiratory Depth Respiratory Pattern Blood Pressure Blood Pressure Mean Blood Pressure Position Pulse Oximetry 96 Oxygen Delivery Method Sepsis Recent Fever Within 48 Hours Sepsis New/Unexplained Change in Mental Status Sepsis Action Taken by Nursing VITALS: Vitals are noted on the nurse's note and reviewed by myself. GENERAL: Non toxic, no acute distress, non-diaphoretic. SKIN: The patient has ulcerative infected wounds with blackened coloring to the left first, third, fourth, and fifth toes. Mild ulcerative lesion to the left heel as well. There is also erythema and edema to the majority of the left foot extending into the left lower extremity. No active discharge or obvious abscess noted. Capillary refill <2 sec. EYES: PERRLA. EOMI. Conjunctivae without injection, sclerae without icterus. NOSE: Patent without discharge. MOUTH: Mucous membranes moist. Uvula midline. Airway patent. NECK: Supple without nuchal rigidity. HEART: Regular rate and rhythm without murmurs gallops or rubs. LUNGS: Clear to auscultation bilaterally without wheezes, rales or rhonchi. No retractions or accessory muscle use. ABDOMEN: Positive bowel sounds x 4. Normal tympanic percussion. Soft, nontender, without masses or organomegaly. Glass sign negative. No guarding or rebound tenderness. No focal RLQ or LLQ tenderness. MUSCULOSKELETAL: The patient has decreased sensation of the left lower extremity, but she states that this is not new for her. Decreased range of motion of the left toes. Full range of motion of the left ankle and knee without significant pain. Dorsalis pedis and posterior tibial pulse are faintly palpable and confirmed by Dopplers. Right BKA present. Course Administered Medications Cefepime HCl 2,000 mg/ Syringe 20 mls @ 5 mls/min IV Q12H ANANTH; Protocol Stop: 12/27/22 19:59 Last Admin: 12/20/22 20:14 Dose: 5 mls/min Documented By: MISTI Heparin Sodium/Dextrose (Heparin Sodium/Dextrose) 25,000 units in 500 mls @ 14 mls/hr IV .Q24H ANANTH; Protocol Stop: 01/19/23 18:14 Last Admin: 12/20/22 19:03 Dose: 700 units/hr, 14 mls/hr Documented By: MISTI Co-signed By: NATHALY Insulin Aspart (Insulin Aspart Per Unit Charge) 0 units SC ACHS ANANTH Stop: 01/19/23 18:44 Last Admin: 12/20/22 20:06 Dose: Not Given Documented By: MISTI Co-signed By: BALBIRL Admin: 12/20/22 19:04 Dose: 1 units Documented By: BCN Co-signed By: NATHALY Insulin Glargine (Lantus Per Unit Charge) 15 units SQ HS ANANTH Stop: 01/19/23 20:59 Last Admin: 12/20/22 20:23 Dose: 15 units Documented By: BCN Co-signed By: DML Discontinued Medications Fentanyl Citrate (Fentanyl Citrate Pf 100 Mcg/2 Ml Vial) 50 mcg IV NOW STA Stop: 12/20/22 15:00 Last Admin: 12/20/22 15:58 Dose: 50 mcg Documented By: MISTI Heparin Sodium (Porcine) (Heparin Sod (Porcine) 1000 Unit/Ml) 4,000 units IV NOW ONE Stop: 12/20/22 18:46 Last Admin: 12/20/22 19:03 Dose: 4,000 units Documented By: MARTINN Co-signed By: NATHALY Sodium Chloride (Nss) 500 mls @ 999 mls/hr IV .Q31M ONE Stop: 12/20/22 13:59 Last Infusion: 12/20/22 14:59 Dose: 0 mls/hr Documented By: Admin: 12/20/22 13:55 Dose: 999 mls/hr Documented By: ACC Vancomycin HCl 1,500 mg/ (Sodium Chloride) 530 mls @ 200 mls/hr IV NOW ONE Stop: 12/20/22 19:24 Last Admin: 12/20/22 17:26 Dose: 200 mls/hr Documented By: ACC Ceftriaxone Sodium (Rocephin) 2,000 mg in 70 mls @ 140 mls/hr IV NOW STA Stop: 12/20/22 17:15 Last Infusion: 12/20/22 17:26 Dose: 0 mls/hr Documented By: Admin: 12/20/22 16:56 Dose: 140 mls/hr Documented By: ACC Ondansetron HCl (Ondansetron Inj 2 Mg/Ml 2 Ml Vial) 4 mg IV NOW STA Stop: 12/20/22 15:00 Last Admin: 12/20/22 15:58 Dose: 4 mg Documented By: MISTI Medical Decision Making Differential Diagnosis Differential diagnosis includes arterial occlusion, PAD, DVT, cellulitis, a bscess, osteomyelitis, necrotizing fasciitis, or others Laboratory Data Attestation: I reviewed the patient's lab results. 12/20/22 12:41 12/20/22 12:41 Lab Results 12/20/22 12/20/22 12/20/22 Range/Units 12:41 12:41 12:41 WBC 9.35 (4.8-10.8) K/ul RBC 3.31 L (4.20-5.40) M/uL Hgb 10.0 L (12.0-16.0) g/dl Hct 30.1 L (37.0-47.0) % MCV 90.9 (80.0-100.0) fL MCH 30.2 (25.0-34.0) pg MCHC 33.2 (32.0-36.0) g/dL RDW Std Deviation 47.9 H (36.4-46.3) fL RDW Coeff of Pepper 14.3 (11.5-14.5) % Plt Count 263 (130-400) K/uL MPV 11.1 (9.4-12.4) fL Immature Gran % (Auto) 0.4 % Neut % (Auto) 68.2 % Lymph % (Auto) 21.5 % Archer % (Auto) 7.9 % Eos % (Auto) 1.8 % Baso % (Auto) 0.2 % Neut # (Auto) 6.37 (1.40-6.50) K/uL Lymph # (Auto) 2.01 (1.2-3.4) K/uL Archer # (Auto) 0.74 H (0.11-0.59) K/uL Eos # (Auto) 0.17 (0-0.50) K/uL Baso # (Auto) 0.02 (0-0.2) K/uL Immature Gran # (Auto) 0.04 (0.01-0.20) K/uL PT 11.3 (9.0-12.0) Seconds INR 1.0 (0.9-1.1) APTT 32.1 H (21.0-31.0) Seconds PTT Ratio 1.1 Sodium 135 L (136-145) mmol/L Potassium 4.1 (3.5-5.1) mmol/L Chloride 104 (98-107) mmol/L Carbon Dioxide 23 (21-32) mmol/L Anion Gap 8 (3-11) BUN 23 (6-23) mg/dl Creatinine 1.02 (0.6-1.2) mg/dl Est Cr Clr Drug Dosing 42.2 ml/min Est GFR ( Amer) 61.9 ml/min Est GFR (Non-Af Amer) 53.4 ml/min BUN/Creatinine Ratio 22.5 H (10-20) Glucose 253 H (70-99(Fasting)) mg/dl Lactate (0.4-2.0) mmol/L Calcium 9.1 (8.6-10.3) mg/dl Magnesium 1.4 L (1.7-2.4) mg/dl Total Bilirubin 0.5 (0.2-1.0) mg/dl AST 17 (13-39) U/L ALT 12 (7-52) U/L Alkaline Phosphatase 129 H (34-104) U/L Troponin I High Sens 25.5 H (0-14) pg/ml Total Protein 7.1 (6.0-8.3) gm/dl Albumin 3.7 (3.4-5.0) gm/dl Globulin 3.4 (2.5-4.0) gm/dl Albumin/Globulin Ratio 1.1 (0.9-2) Procalcitonin (0-0.5) ng/ml 12/20/22 12/20/22 12/20/22 Range/Units 12:41 13:18 14:22 WBC (4.8-10.8) K/ul RBC (4.20-5.40) M/uL Hgb (12.0-16.0) g/dl Hct (37.0-47.0) % MCV (80.0-100.0) fL MCH (25.0-34.0) pg MCHC (32.0-36.0) g/dL RDW Std Deviation (36.4-46.3) fL RDW Coeff of Pepper (11.5-14.5) % Plt Count (130-400) K/uL MPV (9.4-12.4) fL Immature Gran % (Auto) % Neut % (Auto) % Lymph % (Auto) % Archer % (Auto) % Eos % (Auto) % Baso % (Auto) % Neut # (Auto) (1.40-6.50) K/uL Lymph # (Auto) (1.2-3.4) K/uL Archer # (Auto) (0.11-0.59) K/uL Eos # (Auto) (0-0.50) K/uL Baso # (Auto) (0-0.2) K/uL Immature Gran # (Auto) (0.01-0.20) K/uL PT (9.0-12.0) Seconds INR (0.9-1.1) APTT (21.0-31.0) Seconds PTT Ratio Sodium (136-145) mmol/L Potassium (3.5-5.1) mmol/L Chloride (98-107) mmol/L Carbon Dioxide (21-32) mmol/L Anion Gap (3-11) BUN (6-23) mg/dl Creatinine (0.6-1.2) mg/dl Est Cr Clr Drug Dosing ml/min Est GFR ( Amer) ml/min Est GFR (Non-Af Amer) ml/min BUN/Creatinine Ratio (10-20) Glucose (70-99(Fasting)) mg/dl Lactate 0.9 (0.4-2.0) mmol/L Calcium (8.6-10.3) mg/dl Magnesium (1.7-2.4) mg/dl Total Bilirubin (0.2-1.0) mg/dl AST (13-39) U/L ALT (7-52) U/L Alkaline Phosphatase (34-104) U/L Troponin I High Sens 21.6 H (0-14) pg/ml Total Protein (6.0-8.3) gm/dl Albumin (3.4-5.0) gm/dl Globulin (2.5-4.0) gm/dl Albumin/Globulin Ratio (0.9-2) Procalcitonin 0.15 (0-0.5) ng/ml Imaging Data Radiologist's Impression: Chest X-Ray 12/20/22 12:29 XR chest 1V portable CLINICAL HISTORY: Sepsis. COMPARISON STUDY: Chest CT July 25, 2018 and chest radiograph September 02, 2019. FINDINGS: Left axillary calcification is incidentally noted. Lung volumes are normal. Lungs are clear. There is no pneumothorax or pleural effusion. Cardiac size is normal. Mediastinal contours are normal. There is no evidence for pulmonary edema. IMPRESSION: No acute cardiopulmonary findings. No change in appearance of the chest. ACT 112: Negative or not required by law. Electronically signed by: Wing Coughlin M.D. 12/20/2022 2:33 PM Duplex Scan Lower Extremity Artery 12/20/22 13:29 LEFT LOWER EXTREMITY ARTERIAL DOPPLER ULTRASOUND CLINICAL HISTORY: Left lower extremity pain, poor wound healing, h/o vascular surg LLE COMPARISON STUDY: Left lower extremity Doppler ultrasound September 07, 2021. TECHNIQUE: Grayscale, color and duplex Doppler sonography of the arterial system of the left lower extremity was performed. FINDINGS: There is extensive atherosclerotic plaque within the left lower extremity. Biphasic flow within the left common femoral artery is noted. There is also biphasic flow within the proximal to mid left superficial femoral artery. [place] left superficial femoral artery and left popliteal artery are occluded, as shown on ultrasound of September 07, 2021. A patent bypass graft from the distal left superficial femoral artery to a calf vessel is patent. Mid to distal left popliteal artery is occluded. In addition, no flow is identified within the mid to distal left posterior tibial artery which represents a change since ultrasound of September 07, 2021. There is minimal flow within the left peroneal artery. There is significantly dampened, monophasic flow within the left anterior tibial artery and left dorsalis pedis. Flow is diminished when compared to ultrasound of September 07, 2021. IMPRESSION: 1. Extensive atherosclerotic plaque within the left lower extremity. 2. Patent bypass graft from the distal left superficial femoral artery to a calf vessel. 3. Occluded [place] left superficial femoral and popliteal arteries. 4. Significantly diminished flow within the left calf vessels, as detailed abov e. The flow is diminished when compared to ultrasound of September 07, 2021 with suspected occlusion of the mid to distal left posterior tibial artery and peroneal arteries with dampened, monophasic flow within the left anterior tibial artery and dorsalis pedis. ACT 112: Negative or not required by law. Electronically signed by: Wing Coughlin M.D. 12/20/2022 3:56 PM Foot X-Ray 12/20/22 13:29 LEFT FOOT 3 VIEWS CLINICAL HISTORY: Left foot pain. Infection. FINDINGS: 3 views of the left foot are obtained. No prior studies are available for comparison at the time of dictation. The skeletal structures are osteopenic. No fracture is seen. Benign-appearing periostitis is seen along the shafts of the second through fourth metatarsals. No erosive change is seen. Mild arthritic she is seen throughout the foot and ankle. There is degenerative spurring along the dorsal aspect of the tarsal bones. There is a dorsal heel spur. Advanced atherosclerotic calcification is noted in the regional arteries. Mild soft tissue swelling seen throughout the foot. IMPRESSION: 1. Mild soft tissue swelling throughout the foot with no acute bony abnormality identified. 2. Osteopenia and degenerative change as above. Electronically signed by: Agustín Gregg M.D. 12/20/2022 2:33 PM Venous Doppler Study 12/20/22 13:29 LEFT LOWER EXTREMITY VENOUS DOPPLER CLINICAL HISTORY: Left lower extremity pain, redness and swelling. COMPARISON STUDY: No previous studies for comparison. TECHNIQUE: Sonography of the deep venous system of the left lower extremity was performed. Compression and augmentation were evaluated. FINDINGS: The left common femoral, superficial femoral and popliteal veins were compressible. Augmentation was normal. Flow was shown within the deep calf vessels. IMPRESSION: No evidence of deep venous thrombus within the left lower extremity. ACT 112: Negative or not required by law. Electronically signed by: Wing Coughlin M.D. 12/20/2022 3:47 PM MDM Narrative I examined the patient. An IV lock was placed and labs were drawn. I reviewed the patient's wound care and vascular visits as summarized above. She was given 500 mL normal saline solution bolus. She was given fentanyl 50 mcg IV and Zofran 4 mg IV for pain. White blood cell count normal at 9.35. Hemoglobin low at 10. Platelet count normal. APTT 32.1, but other coags were normal. Sodium 135, glucose 253, and alk phos 129, but CMP otherwise unremarkable. Magnesium low at 1.4. Lactate and procalcitonin were normal. Blood cultures still pending. High-sensitivity troponin was initially 25.5 with repeat level 21.6. EKG was interpreted by myself as normal sinus rhythm at 61 bpm with no acute ST or T wave changes and no significant changes from her previous EKG. Chest x-ray was interpreted by myself and read by radiology as above and show no acute cardiopulmonary etiology. X-rays of the left foot were interpreted by myself and read by radiology and show mild soft tissue swelling throughout the foot with no acute bony abnormalities. Osteopenia and degenerative changes present. Venous Doppler of the left lower extremity was reviewed by myself and read by radiology as above and shows no evidence for DVT. Arterial ultrasound of the left lower extremity was reviewed by myself and read by radiology as above. It shows extensive atherosclerotic plaque within the left lower extremity. Patent bypass graft from the distal left superficial fe moral artery to calf vessel. Occluded [place] left superficial femoral and popliteal arteries. Significantly diminished flow within the left calf vessels. The flow is diminished when compared to ultrasound of 09/07/2021 with suspected occlusion of the mid to distal left posterior tibial artery and peroneal arteries with dampened monophasic flow within the left anterior tibial artery and dorsalis pedis. The patient does have faint pulses present in the left foot that were confirmed by Dopplers. I spoke with Dr. Umana of vascular surgery who stated the patient may need an angiogram, but would likely not be done until Saturday. He does not feel that the patient needs emergent surgery at this time. He will see the patient on consult while she is admitted. I had a meaningful discussion about this patient with Dr. Ontiveros who agrees with my assessment and the treatment plan. We feel the patient requires admission at this time for further management of the wound infections that are worsening as an outpatient. I spoke with the ED pharmacist who recommended starting the patient on IV vancomycin and Rocephin. I spoke with the on-call hospitalist who agreed to admit the patient for further evaluation and treatment. Please refer to their dictation for further details. The patient's COVID did come back positive prior to admission, but the patient was not complaining of COVID type symptoms. The patient's care was transferred in stable condition. Impression & Plan Gangrene due to arterial insufficiency, Diabetic foot ulcer, PAD (peripheral artery disease) Discharge Plan Visit Data Chief Complaint: Leg Injury/Pain Stated Complaint: REF BY DOC; LEFT FOOT/LEG PAIN ED Provider: Hussain Ontiveros ED Midlevel Provider: Lary Dickson Discharge Problem: Gangrene due to arterial insufficiency, Diabetic foot ulcer, PAD (peripheral artery disease) Patient Disposition: Admitted As Inpatient Condition: Good Discharge Instructions Interventions: ED Discharge Assessment Last Done: 12/20/22 22:38
[2022-12-20 13:23] LABS: Basophils # (auto) 0.02 K/uL (0-0.2); Basophils % (auto) 0.2 %; Eosinophils # (auto) 0.17 K/uL (0-0.50); Eosinophils % (auto) 1.8 %; Hematocrit (blood only) 30.1 % (37.0-47.0); Immature Granulocytes # (auto) 0.04 K/uL (0.01-0.20); Immature Granulocytes % (auto) 0.4 %; Lymphocytes # (auto) 2.01 K/uL (1.2-3.4); Lymphocytes % (auto) 21.5 %; Mean Corpuscular Hemoglobin 30.2 pg (25.0-34.0); Mean Corpuscular Hgb Conc 33.2 g/dL (32.0-36.0); Mean Corpuscular Volume 90.9 fL (80.0-100.0); Mean Platelet Volume 11.1 fL (9.4-12.4); Monocytes # (auto) 0.74 K/uL (0.11-0.59); Monocytes % (auto) 7.9 %; Neutrophils # (auto) 6.37 K/uL (1.40-6.50); Neutrophils % (auto) 68.2 %; Platelet Count 263 K/uL (130-400); RDW Coefficient of Variation 14.3 % (11.5-14.5); RDW Standard Deviation 47.9 fL (36.4-46.3); Red Blood Count 3.31 M/uL (4.20-5.40); White Blood Count 9.35 K/ul (4.8-10.8)
[2022-12-20] MEDS ORDERED: SODIUM CHLORIDE 0.9% 500 ML IV ONE (13:29)
[2022-12-20 13:35] LABS: Albumin Globulin Ratio 1.1 (0.9-2); Albumin Level 3.7 gm/dl (3.4-5.0); BUN Creatinine Ratio 22.5 (10-20); Bilirubin,Total 0.5 mg/dl (0.2-1.0); Calcium 9.1 mg/dl (8.6-10.3); Creatinine Clr Calc Pharmacy 42.2 ml/min; Est GFR (African American) 61.9 ml/min; Est GFR (Non-African American) 53.4 ml/min; Globulin 3.4 gm/dl (2.5-4.0); Magnesium 1.4 mg/dl (1.7-2.4); Potassium 4.1 mmol/L (3.5-5.1); Total Protein 7.1 gm/dl (6.0-8.3)
[2022-12-20 13:41] LABS: Troponin I High Sensitivity 25.5 pg/ml (0-14)
[2022-12-20 13:52] LABS: Partial Thromboplastin Ratio 1.1; Partial Thromboplastin Time 32.1 Seconds (21.0-31.0); Prothrombin Time 11.3 Seconds (9.0-12.0)
--- NOTE | 2022-12-20 14:34 | XRay Report ---
LEFT FOOT 3 VIEWS CLINICAL HISTORY: Left foot pain. Infection. FINDINGS: 3 views of the left foot are obtained. No prior studies are available for comparison at the time of dictation. The skeletal structures are osteopenic. No fracture is seen. Benign-appearing per iostitis is seen along the shafts of the second through fourth metatarsals. No erosive change is seen . Mild arthritic she is seen throughout the foot and ankle. There is degenerative spurring along the dorsal aspect of the tarsal bones. There is a dorsal heel spur. Advanced atherosclerotic calcificatio n is noted in the regional arteries. Mild soft tissue swelling seen throughout the foot. IMPRESSION: 1. Mild soft tissue swelling throughout the foot with no acute bony abnormality identified. 2. Osteopenia and degenerative change as above. Electronically signed by: Agustín Gregg M.D. 12/20/2022 2:33 PM
--- NOTE | 2022-12-20 14:35 | XRay Report ---
XR chest 1V portable CLINICAL HISTORY: Sepsis. COMPARISON STUDY: Chest CT July 25, 2018 and chest radiograph September 02, 2019. FINDINGS: Left axillary calcification is incidentally noted. Lung volumes are normal. Lungs are clear . There is no pneumothorax or pleural effusion. Cardiac size is normal. Mediastinal contours are norm al. There is no evidence for pulmonary edema. IMPRESSION: No acute cardiopulmonary findings. No change in appearance of the chest. ACT 112: Negative or not required by law. Electronically signed by: Wing Coughlin M.D. 12/20/2022 2:33 PM
[2022-12-20] MEDS ORDERED: ONDANSETRON INJ 2 MG/ML 2 ML VIAL IV STA (14:59)
[2022-12-20] MEDS ORDERED: fentaNYL citrate PF 100 MCG/2 ML VIAL IV STA (14:59)
--- NOTE | 2022-12-20 15:48 | Ultrasound Report ---
LEFT LOWER EXTREMITY VENOUS DOPPLER CLINICAL HISTORY: Left lower extremity pain, redness and swelling. COMPARISON STUDY: No previous studies for comparison. TECHNIQUE: Sonography of the deep venous system of the left lower extremity was performed. Compressi on and augmentation were evaluated. FINDINGS: The left common femoral, superficial femoral and popliteal veins were compressible. Augmen tation was normal. Flow was shown within the deep calf vessels. IMPRESSION: No evidence of deep venous thrombus within the left lower extremity. ACT 112: Negative or not required by law. Electronically signed by: Wing Coughlin M.D. 12/20/2022 3:47 PM
--- NOTE | 2022-12-20 15:57 | Ultrasound Report ---
LEFT LOWER EXTREMITY ARTERIAL DOPPLER ULTRASOUND CLINICAL HISTORY: Left lower extremity pain, poor wound healing, h/o vascular surg LLE COMPARISON STUDY: Left lower extremity Doppler ultrasound September 07, 2021. TECHNIQUE: Grayscale, color and duplex Doppler sonography of the arterial system of the left lower ex tremity was performed. FINDINGS: There is extensive atherosclerotic plaque within the left lower extremity. Biphasic flow wi thin the left common femoral artery is noted. There is also biphasic flow within the proximal to mid left superficial femoral artery. The [place] left superficial femoral artery and left popliteal artery are occluded, as shown on ultrasound of September 07, 2021. A patent bypass graft from the distal left [place] perficial femoral artery to a calf vessel is patent. Mid to distal left popliteal artery is occluded. In addition, no flow is identified within the mid to distal left posterior tibial artery which repre sents a change since ultrasound of September 07, 2021. There is minimal flow within the left peroneal franike ry. There is significantly dampened, monophasic flow within the left anterior tibial artery and left dorsalis pedis. Flow is diminished when compared to ultrasound of September 07, 2021. IMPRESSION: 1. Extensive atherosclerotic plaque within the left lower extremity. 2. Patent bypass graft from the distal left superficial femoral artery to a calf vessel. 3. Occluded [place] left superficial femoral and popliteal arteries. 4. Significantly diminished flow within the left calf vessels, as detailed above. The flow is diminis hed when compared to ultrasound of September 07, 2021 with suspected occlusion of the mid to distal left p osterior tibial artery and peroneal arteries with dampened, monophasic flow within the left anterior tibial artery and dorsalis pedis. ACT 112: Negative or not required by law. Electronically signed by: Wing Coughlin M.D. 12/20/2022 3:56 PM
[2022-12-20] MEDS ORDERED: VANCOMYCIN CONSULT ACTIVE PRN ×2 (16:46→17:52)
[2022-12-20] MEDS ORDERED: VANCOMYCIN HCL 1,500 MG in SODIUM CHLORIDE 0.9% 500 ML IV ONE (16:46)
[2022-12-20] MEDS ORDERED: cefTRIAXone SODIUM 2,000 MG/70 ML BAG IV STA (16:46)
--- NOTE | 2022-12-20 17:35 | History & Physical Report ---
Date of Service December 20, 2022 Assessment & Plan (1) Gangrene due to arterial insufficiency: Plan: Left lower extremity diabetic foot ulcer, gangrene with arterial insufficiency,? Osteomyelitis Venous Dopplers: No DVT X-ray left foot: Mild soft tissue swelling throughout the foot with no acute bony abnormality, osteopenia and degenerative change Arterial duplex: 1. Extensive atherosclerotic plaque within the left lower extremity.2. Patent bypass graft from the distal left superficial femoral artery to a calf vessel.3. Occluded [place] left superficial femoral and popliteal arteries. 4. Significantly diminished flow within the left calf vessels, as detailed above. The flow is diminished when compared to ultrasound of September 07, 2021 with suspected occlusion of the mid to distal left posterior tibial artery and peroneal arteries with dampened, monophasic flow within the left anterior tibial artery and dorsalis pedis. - CXR: IMPRESSION: No acute cardiopulmonary findings. No change in appearance of the chest. Patient with some erythema which improved on clindamycin, underlies did not significantly improve Continue broad coverage. Given chronic wound, prior hospitalizations, and severe infection will expand Rocephin to cefepime and continue vancomycin WBC 9.35, CRP ordered, procalcitonin normal Magnesium 1.4, repleted Creatinine 1.02 on admission Last seen by vascular surgery 11/13: PAD with left femoral to peroneal arterial bypass noted previously 06/25: Percutaneous angioplasty of left peroneal artery - Vascular consulted. No operative intervention anticipated until Saturday, may have diet. Heparin GTT started, low-dose nomogram used due to history of anemia CAD Patient denies history of chest pain, MO, heart failure High sensitive troponin 25, repeat 21 without chest pain. Suspect demand Continue Plavix Carvedilol 25 mg twice daily continued on the losartan continued Continue atorvastatin 80 Hypertension Beta-fatemeh as noted Continue nifedipine 60 mg p.o. at bedtime, losartan 100 mg p.o. every morning Hypertensive in the setting of pain, continue pain control. If persistently greater than 180, may add low-dose hydralazine x1. No tachycardia Type I DM with peripheral neuropathy Home insulin detemir converted to Lantus 15 units nightly Home insulin lispro converted to sliding scale based on basal requirement Goal BSG [id number] Glucose checks AC/at bedtime Crest syndrome Continue losartan Breathing stable DVT prophylaxis: Heparinized Diet: Type I DM Disposition: Medical telemetry due to troponin rise until trend complete, limited wall motion echo pending CODE STATUS: Full code (2) Diabetic foot ulcer: (3) Carotid artery stenosis: (4) PAD (peripheral artery disease): (5) CREST syndrome: History of Present Illness Primary Care Provider: Agustín Jarvis MD Trista Almaraz is a 77-year-old female with a past medical history of rainouts, crest syndrome, renal cell carcinoma, osteomyelitis with severe PAD and prior BKA right, diabetic ulcers, and lower extremity wounds seen 11/04/2022 who presents to the ER with worsened left foot and leg pain and was referred from wound care center. Has had 3 weeks of worsening left great toe and third/fourth/fifth toe wounds without fever or chills but with drainage. She is on Plavix. Per wound care note review was concerned about deterioration of the foot and with concern for limb threatening arterial insufficiency and was recomm ended to present to the ER. Last arterial ultrasound 75-99% stenosis of peroneal artery outflow just distal to her prior anastomosis which was stable compared to 2022 She is seen at the bedside. She reports about 3 weeks ago she had progressive worsening and pain in her left toes and redness which has spread to the midfoot. She reports this is continued to worsen, redness did get a little better with clindamycin but otherwise has continued to have worsening pain and wounds of her left lower extremity. Has had some intermittent fevers and chills. Denies chest pain, chest pressure, shortness of breath, difficulty breathing at any point. She does not use tobacco products or alcohol. She does not have any proximal limb pain. No abdominal pain. No nausea/vomiting. Medical History: Reviewed Medications: Reviewed Surgical History: Reviewed Family history: Reviewed Allergies: Reviewed Social History: Reviewed Code Status: Full Allergies Allergy/AdvReac Type Severity Reaction Status Date / Time enflurane Allergy Severe NAUSEA, Verified 12/20/22 11:22 jaundiced Iodinated Contrast Media Allergy Intermediate HIVES - Verified 12/20/22 11:22 IVP DYE CHECO Inhibitors Allergy Mild hives Verified 12/20/22 11:22 nickel Allergy Mild REDNESS Verified 12/20/22 11:22 AND ITCHING liraglutide [From Victoza] AdvReac Mild SEVERE Verified 12/20/22 11:22 NAUSEA Home Medications Medication Instructions Recorded Confirmed Type blood sugar diagnostic (Contour #[id number] ea 08/08/20 12/05/22 Rx Test Strips) glucagon HCl 1 mg solution for 1 mg subcut Q20M PRN hypoglycemia 06/29/21 12/20/22 Rx injection (Glucagon (HCl) #1 ea Emergency Kit) albuterol sulfate 90 mcg/actuation 2 puff inhalation Q4H PRN 07/03/21 12/20/22 Rx aerosol inhaler shortness of breath or wheezing #18 grams insulin detemir U-100 100 unit/mL See Rx Instructions subcut QPM #4 07/05/21 12/20/22 Rx subcutaneous solution (Levemir vials U-100 Insulin) Prosthetic gel liners #2 ea 12/11/21 12/05/22 Rx Suspension sleeves #2 ea 12/11/21 12/05/22 Rx omeprazole 20 mg capsule,delayed 20 mg PO HS #90 caps 01/01/22 12/20/22 Rx release insulin lispro 100 unit/mL 1 sliding scale dose subcut 02/16/22 12/20/22 History subcutaneous solution (Humalog USEASDIRECTD U-100 Insulin) atorvastatin 80 mg tablet 80 mg PO QPM #90 tabs 02/23/22 12/20/22 Rx cholecalciferol (vitamin D3) 25 1,000 unit PO DAILY 06/19/22 12/20/22 History mcg (1,000 unit) capsule (Vitamin D3) losartan 100 mg tablet (Cozaar) 100 mg PO QAM 06/25/22 12/20/22 History clopidogrel 75 mg tablet (Plavix) 75 mg PO QAM #90 tabs 07/12/22 12/20/22 Rx levothyroxine 100 mcg tablet 100 mcg PO DAILY #90 tabs 09/17/22 12/20/22 Rx docusate sodium 100 mg capsule 100 mg PO DAILY 10/25/22 12/20/22 History (Dulcolax Stool Softener (docusate)) nifedipine 60 mg tablet,extended 60 mg PO HS #90 tabs 10/31/22 12/20/22 Rx release tramadol 50 mg tablet See Rx Instructions PO QID PRN 11/14/22 12/20/22 Rx pain #40 tabs R BKA prosthesis S88.111A #1 ea 11/27/22 12/05/22 Rx carvedilol 25 mg tablet (Coreg) 25 mg PO BID 11/28/22 12/20/22 History gabapentin 100 mg capsule 100 mg PO .COMPLEX #270 caps 12/05/22 12/20/22 Rx clindamycin HCl 300 mg capsule 300 mg PO QID 12/20/22 12/20/22 History mometasone-formoterol HFA 200 2 puff inhalation BID PRN Other 12/20/22 12/20/22 History mcg-5 mcg/actuation aerosol inhaler (Dulera) spironolactone 25 mg tablet 25 mg PO BID 12/20/22 12/20/22 History Past Med/Surg History Medical History Anemia CHRONIC; BASELINE HGB STABLE AT 9-10 RANGE PER CHART REVIEW Asthma CONTROLLED/LAST USE OF INHALER "A LONG TIME AGO" Below-knee amputation of right lower extremity Cerebral aneurysm Chronic kidney disease STAGE III - FOLLOWS WITH NEPHRO- CREATINE USUALLY 1.3-1.5 Conductive hearing loss of right ear Constipation CREST syndrome Deep vein thrombosis RLE DVT DX'D 01/2018; CHRONIC-- ON XARELTO BID (PCP/VASCULAR MONITORING) Diabetes IDDM Diverticular disease GERD (gastroesophageal reflux disease) History of MRSA infection April 2017 (right foot - has since been amputated) --> no active infection. Hx of carotid stenosis BOTH SIDES - HAD LEFT CEA 2002 AND RIGHT CEA 1995 Hx of deep venous thrombosis 2017 R LE Hx of renal cell cancer R RENAL (2012) S/P R NEPHRECTOMY - NO RADIATION NO CHEMO Hyperkalemia Hyperlipidemia Hypertension Hypertensive urgency Hypothyroidism Occlusion and stenosis of carotid artery with cerebral infarction On anticoagulant therapy Osteoporosis Otalgia, left ear PAD (peripheral artery disease) Pressure ulcer of right foot, stage 2 Raynauds syndrome Renal artery stenosis RIGHT KIDNEY STENT ATTEMPTED 2010; S/P RIGHT NEPHRECTOMY 2012 Right lumbar radiculitis S/P angiogram of extremity left leg Scleroderma TMJ derangement Tympanic membrane perforation Vertigo Surgical History H/O carotid endarterectomy LEFT (2002), RIGHT (1995) H/O sinus surgery History of amputation of lesser toe of right foot MULTIPLE TOE AMPUTATIONS/I&D (ALL RT TOES) History of angioplasty MULTIPLE OF LE'S WITH STENTS TO LOWER EXTREMITIES PLACED History of appendectomy History of atherectomy LEFT (02/2017) History of cardiac cath 2011= NO STENTS ([facility]) History of carpal tunnel surgery RIGHT HAND, TRIGGER RIGHT FINGER History of cataract surgery RT/LEFT History of cholecystectomy History of colonoscopy History of endoscopic sinus surgery History of esophagogastroduodenoscopy (EGD) History of hysterectomy MERYL W/ BSO History of left breast biopsy 1997 History of nephrectomy RIGHT (2012) History of oophorectomy B/L OVARIES History of procedure for peripheral vascular disease LEFT POPLITEAL S/P PERONEAL ARTERY BYPASS 2012; RLE ANGIO WITH INTERVENTION 06/2017 History of tonsillectomy Hx of lumpectomy LEFT BREAST (BENIGN) Nausea and vomiting after administration of anesthetic agent S/P amputation right Below the knee amputation Family History Father Family hx of colon cancer Family history of diabetes mellitus Mother Lung cancer Stroke Unknown Rheumatoid arthritis Other No family history of adverse response to anesthesia No family history of bleeding disorder Social History Smoking Status: Never smoker Second Hand Exposure: No; Do You Dip or Chew Tobacco: No; Hx Alcohol Use: No Hx Substance Use: No Preferred Language: Pashto Communication Ability: Effective Visual Impairment: No Limitations Hearing Ability: Normal E [employer] 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 Feels Safe at Home: Yes Diet: diabetic during the past year weight has: decreased > 10 lbs Seatbelt Use: always Do you think of yourself as: straight/heterosexual Gender Identity: Female Assistive Devices: Glasses, Prosthesis, Walker and Wheelchair Review of Systems Review of Systems: All systems reviewed & are unremarkable except as noted in HPI & below Physical Exam Physical Exam: General: A&Ox3. NAD. Cooperative. HEENT: Atraumatic, normocephalic. Vision/hearing intact Pulm: CTAB A&P. -wheezes, -rales, -rhonchi. Symmetrical chest rise. No increased work of breathing. No respiratory distress. Cardiac: RRR, -mrg. Radial pulses intact and symmetrical. Abdominal: Nontender, nondistended, soft. BS present. Extremity: Left DP/PT diminisished, monophasic flow to doppler. Not palpable. Sensation to soft touch intact in L foot but diminished. See photos below for skin eval. s/p R BKA, well healed stump without sounds Results & Data Results & Data Vital Signs (Past 12 Hours) Vital Signs Temp Pulse Resp BP Pulse Ox O2 Del Method 12/20/22 16:30 59 L 17 97 12/20/22 16:30 196/96 H 12/20/22 16:20 59 L 18 97 12/20/22 16:10 56 L 15 93 12/20/22 16:00 197/70 H 12/20/22 16:00 56 L 16 96 12/20/22 15:54 60 115 H 12/20/22 14:40 56 L 19 95 12/20/22 14:30 57 L 22 12/20/22 14:20 60 18 96 12/20/22 14:10 59 L 10 L 97 12/20/22 14:00 60 22 100 12/20/22 13:52 62 14 95 12/20/22 13:52 178/79 H 12/20/22 13:51 60 21 12/20/22 14:05 62 12/20/22 12:29 59 L Room Air 12/20/22 12:24 36.8 C 62 18 175/111 H 99 Room Air PG Care Time/CCT Total # of Minutes Spent Total Time Spent with Patient: Total time spent is greater than 50% in coordination of care (as documented) at patient's floor/unit and/or counseling patient: Coding Level of Care Code 44102 INT INP/OBS CARE 3/75MIN Diagnoses Gangrene due to arterial insufficiency I77.1; I96 Diabetic foot ulcer E11.621; L97.509 Carotid artery stenosis I65.29 PAD (peripheral artery disease) I73.9 CREST syndrome M34.1
--- NOTE | 2022-12-20 17:36 | Electrocardiogram Report ---
Test Reason : Blood Pressure : / mmHG Vent. Rate : 061 BPM Atrial Rate : 061 BPM P-R Int : 146 ms QRS Dur : 084 ms QT Int : 438 ms P-R-T Axes : 051 -03 048 degrees QTc Int : 440 ms Normal sinus rhythm Low voltage QRS Borderline ECG When compared with ECG of 25-NOV-2019 09:55, No significant change was found Confirmed by Hermes Acosta ([id number]) on 12/20/2022 5:35:41 PM Referred By: Confirmed By:Varghese Acosta
[2022-12-20] MEDS ORDERED: Heparin IV Adult Wt-Based Low-Dose WITH Bolus Protocol IV STA (17:52)
[2022-12-20] MEDS ORDERED: GLUCAGON FOR INJ 1 MG VIAL SQ PRN (17:52)
[2022-12-20] MEDS ORDERED: GLUCOSE 10 TAB/TUBE PO PRN (17:52)
[2022-12-20] MEDS ORDERED: DEXTROSE 50% 50 ML SYRINGE IV PRN (17:52)
[2022-12-20] MEDS ORDERED: GLUCOSE 40% GEL 15 GM TUBE PO PRN (17:52)
[2022-12-20] MEDS ORDERED: PHARMACY GLYCEMIC MGMT CONSULT PRN (17:52)
[2022-12-20] MEDS ORDERED: HEPARIN SOD (PORCINE) 1000 UNIT/ML IV ONE (18:45)
[2022-12-20] MEDS: HEPARIN SODIUM/DEXTROSE 25,000 UNITS/500 ML BAG IV SCH (19:03)
[2022-12-20] MEDS: INSULIN ASPART PER UNIT CHARGE SC SCH ×2 (19:04→20:06)
--- NOTE | 2022-12-20 20:09 | Pharmacy Report ---
Pharmacy PK ABX Note - Date of Service December 20, 2022 - Assessment and Plan Assessment 77 year old F receiving VANCOMYCIN/CEFEPIME for treatment of DIABETIC FOOT ULCER-LEFT. Of note, patient has a prior below the knee amputation on the right. Pertinent microbiologic data includes: BLOOD CULTURES PENDING. The patient has a history of MRSA from a right foot culture (08/2019). Day # 1/? of antimicrobial therapy. Plan Vancomycin * Loading dose: 1500 mg IV x 1 * Maintenance dose: 1000 mg IV every 18 hours * Regimen is predicted to achieve target AUC/BRENDAN of 400-600 mg/L.hr * Vancomycin level to be ordered if continued beyond 48 hours * Daily serum creatinine ordered Pharmacy will continue to follow and will adjust dose/frequency as necessary. Thank you. Pharmacy has transitioned to AUC monitoring for vancomycin. AUC/BRENDAN is the preferred PK/PD target and is associated with decreased risk of nephrotoxicity compared to traditional trough targets.
[2022-12-20] MEDS: CEFEPIME 2,000 MG in SYRINGE 0 ML IV SCH (20:14)
[2022-12-20] MEDS: LANTUS PER UNIT CHARGE SQ SCH (20:23)
[2022-12-20] MEDS ORDERED: ALBUTEROL HFA 8 GM INHALER INH PRN (22:36)
[2022-12-20] MEDS ORDERED: ONDANSETRON INJ 2 MG/ML 2 ML VIAL IV PRN (22:36)
[2022-12-21] MEDS: ATORVASTATIN 40 MG TAB PO SCH ×2 (00:27→20:21)
[2022-12-21] MEDS: SPIRONOLACTONE 25 MG TAB PO SCH ×3 (00:28→17:25)
[2022-12-21] MEDS: NIFEdipine EXTENDED REL 30 MG TABCR PO SCH ×2 (00:28→20:22)
[2022-12-21] MEDS: PANTOprazole 40 MG TAB PO SCH ×2 (00:28→20:22)
[2022-12-21] MEDS: GABAPENTIN 100 MG CAP PO SCH ×3 (00:28→20:22)
[2022-12-21] MEDS: ACETAMINOPHEN 325 MG TAB PO PRN ×2 (00:38→13:48)
[2022-12-21] MEDS ORDERED: VANCOMYCIN HCL 1,000 MG in SODIUM CHLORIDE 0.9% 500 ML IV SCH (01:00)
[2022-12-21 03:00] LABS: Basophils # (auto) 0.02 K/uL (0-0.2); Basophils % (auto) 0.3 %; Eosinophils # (auto) 0.28 K/uL (0-0.50); Eosinophils % (auto) 4.3 %; Hematocrit (blood only) 26.8 % (37.0-47.0); Hemoglobin 9.2 g/dl (12.0-16.0); Immature Granulocytes # (auto) 0.03 K/uL (0.01-0.20); Immature Granulocytes % (auto) 0.5 %; Lymphocytes # (auto) 1.91 K/uL (1.2-3.4); Lymphocytes % (auto) 29.6 %; Mean Corpuscular Hemoglobin 31.3 pg (25.0-34.0); Mean Corpuscular Hgb Conc 34.3 g/dL (32.0-36.0); Mean Corpuscular Volume 91.2 fL (80.0-100.0); Mean Platelet Volume 11.3 fL (9.4-12.4); Monocytes # (auto) 0.41 K/uL (0.11-0.59); Monocytes % (auto) 6.4 %; Neutrophils % (auto) 58.9 %; Platelet Count 215 K/uL (130-400); RDW Coefficient of Variation 14.2 % (11.5-14.5); RDW Standard Deviation 47.9 fL (36.4-46.3); Red Blood Count 2.94 M/uL (4.20-5.40); White Blood Count 6.45 K/ul (4.8-10.8)
[2022-12-21 03:17] LABS: BUN Creatinine Ratio 19.8 (10-20); C Reactive Protein 6.09 mg/dl (0-0.5); Calcium 8.2 mg/dl (8.6-10.3); Creatinine Clr Calc Pharmacy 42.6 ml/min; Est GFR (African American) 62.6 ml/min; Potassium 3.7 mmol/L (3.5-5.1)
[2022-12-21 03:37] LABS: Partial Thromboplastin Time 56.4 Seconds (21.0-31.0)
[2022-12-21] MEDS: VANCOMYCIN HCL 1,000 MG in SODIUM CHLORIDE 0.9% 250 ML IV SCH ×2 (04:00→21:38)
[2022-12-21] MEDS: LEVOTHYROXINE SODIUM 100 MCG TABLET PO SCH (05:35)
[2022-12-21 07:45] LABS: Estimated Average Glucose 169 mg/dl; Hemoglobin A1C 7.5 % (4.5-5.6)
--- NOTE | 2022-12-21 08:17 | Hospitalist Progress Note ---
Date of Service December 21, 2022 Assessment & Plan (1) Gangrene due to arterial insufficiency: Plan: Trista is a 77 year old female with history of Raynaud syndrome, PAD, HTN, dyslipidemia, T1DM w/ peripheral neuropathy, GERD, CREST syndrome, hypothyroidism, hearing loss, and lumbar radiculitis who presented for evaluation of worsening left foot and leg pain and was admitted for management of gangreene in the setting of PVD and a diabetic foot ulceration. LLE Diabetic Foot Ulcer/Dry Gangrene - Imaging: * Venous Doppler w/o DVT * L Foot XR w/ soft tissue swelling w/o acute bony anomaly, osteopenia, or degenerative change * Arterial Duplex w/ extensive atherosclerotic plaque in LLE, patent bypass graft, but occluded [place] L superficial femoral and popliteal arteries, diminished flow w/in L calf vessels - Antibiotics - broad coverage with Cefepime/Vancomycin - Labs - HbA1c 7.5 12/21, CRP 6.09 12/21, Mg 1.4 (repleted), Creatinine 1.02 (on admission) - Ongoing Heparin ggt (low dose d/t hx of anemia) ---- Vascular Surgery consulted - plannign surgical intervention Saturday CAD Patient denies history of chest pain, NH, heart failure High sensitive troponin 25, repeat 21 without chest pain, possible Continue Plavix Carvedilol 25 mg twice daily continued on the losartan continued Continue atorvastatin 80 Hypertension Beta-fatemeh as noted Continue nifedipine 60 mg p.o. at bedtime, losartan 100 mg p.o. every morning Hypertensive in the setting of pain, continue pain control. * If persistently greater than 180, may add low-dose hydralazine x1. No tachycardia Type I DM with peripheral neuropathy Home insulin detemir converted to Lantus 15 units nightly Home insulin lispro converted to sliding scale based on basal requirement Goal BSG 132570 Glucose checks AC/at bedtime Crest Syndrome Continue losartan Breathing stable DVT prophylaxis: Heparinized Diet: Type I DM Disposition: Medical telemetry due to troponin rise until trend complete, limited wall motion echo pending CODE STATUS: Full code (2) Diabetic foot ulcer: (3) Carotid artery stenosis: (4) PAD (peripheral artery disease): (5) CREST syndrome: Admission and Anticipated Discharge Date Admission Date: December 20, 2022 Supervising Physician Co-Signing Physician Notes I personally examined the patient and verified all [place] points of history and exam, discussed case, and agree with decision making with Dr Awad feeling okay. No pain. Discussed planexpressed good understanding. Answered all questions the best my ability. Vitals noted, left foot with dry gangrene/ black necrotic areas, no tracking erythema vascular insufficiency/dry gangrene/infection - continue broad antibiotics and supportive care. Vascular eval Saturday heparin gtt otherwise as above Subjective 12/21: Patient with no acute concerns, no acute events overnight. See attending attestation for detailed HPI. Physical Exam Physical Exam: See attending attestation for detailed physical exam. Results & Data Results & Data Vital Signs (Past 12 Hours) Vital Signs Temp Pulse Pulse Resp BP BP BP 12/21/22 04:00 12/21/22 04:04 36.5 C 56 L 18 155/70 H 12/21/22 01:10 67 12/21/22 00:00 36.8 C 63 18 197/70 H 12/21/22 00:07 36.8 C 65 18 197/70 H 12/20/22 23:30 64 21 159/70 H 12/20/22 23:00 59 L 20 134/61 12/20/22 22:50 59 L 21 12/20/22 22:40 62 21 12/20/22 22:30 59 L 19 12/20/22 22:30 144/63 H 12/20/22 22:20 59 L 21 12/20/22 22:10 59 L 20 12/20/22 22:00 58 L 20 12/20/22 22:00 126/57 L 12/20/22 22:32 58 L 12/20/22 21:50 58 L 19 12/20/22 21:40 58 L 21 12/20/22 21:30 60 22 12/20/22 21:30 159/73 H 12/20/22 21:20 62 22 12/20/22 21:10 60 20 12/20/22 21:00 60 20 12/20/22 21:00 184/73 H 12/20/22 20:50 61 20 12/20/22 20:40 64 17 12/20/22 20:30 65 22 12/20/22 20:30 194/98 H 12/20/22 20:20 59 L 20 12/20/22 20:19 60 21 12/20/22 20:19 192/77 H Pulse Ox O2 Del Method 12/21/22 04:00 Room Air 12/21/22 04:04 95 12/21/22 01:10 12/21/22 00:00 96 Room Air 12/21/22 00:07 98 Room Air 12/20/22 23:30 92 Room Air 12/20/22 23:00 92 Room Air 12/20/22 22:50 93 12/20/22 22:40 95 12/20/22 22:30 94 12/20/22 22:30 12/20/22 22:20 92 12/20/22 22:10 92 12/20/22 22:00 92 12/20/22 22:00 12/20/22 22:32 12/20/22 21:50 92 12/20/22 21:40 92 12/20/22 21:30 94 12/20/22 21:30 12/20/22 21:20 94 12/20/22 21:10 92 12/20/22 21:00 12/20/22 21:00 12/20/22 20:50 12/20/22 20:40 12/20/22 20:30 12/20/22 20:30 12/20/22 20:20 96 12/20/22 20:19 98 12/20/22 20:19 (2) Diabetic foot ulcer Diabetic foot ulcer location: unspecified part of foot Laterality: left
[2022-12-21] MEDS: CEFEPIME 2,000 MG in SYRINGE 0 ML IV SCH ×2 (08:49→20:16)
[2022-12-21] MEDS: carvediloL 25 MG TAB PO SCH ×2 (08:49→17:24)
[2022-12-21] MEDS: CLOPIDOGREL BISULFATE 75 MG TAB PO SCH (08:49)
[2022-12-21] MEDS: DOCUSATE SODIUM 100 MG CAP PO SCH (08:49)
[2022-12-21] MEDS: CHOLECALCIFEROL 1,000 UNITS 25 MCG TAB PO SCH (08:50)
[2022-12-21] MEDS: LOSARTAN POTASSIUM 50 MG TAB PO SCH (08:50)
[2022-12-21] MEDS: INSULIN ASPART PER UNIT CHARGE SC SCH ×4 (09:01→21:07)
--- NOTE | 2022-12-21 10:50 | Consultation ---
Date of Consultation December 21, 2022 Assessment & Plan (1) Gangrene due to arterial insufficiency: Pt has known hx of severe PAD in BLE, resulting in RLE BKA and remote hx of LLE distal SFA to peroneal art bypass. She now may have occluded her outflow arteries and appears to have dry gangrene of her L toes and pain in her heel. Pt discussed with Dr Umana, planning on angio with intervention on SATURDAY morning. Pt agreeable. Aware of renal insufficiency and dye allergy, will premedicate. History of Present Illness Reason for Consultation: PAD Attending Physician: Hesham Mcclellan DO History of Present Illness 77 yo f with multiple medical problems, including DMII, PAD, TMJ, carotid stenosis s/p CEA, Raynaud's syndrome, HTN, dyslipidemia, hypothyroidism, GERD, CREST syndrome, s/p R BKA, admitted with gangrene of L foot, seen in consultation today. She is well known to Dr Umana's vascular service for longstanding PAD. She has a LLE SFA to peroneal artery BPG done at [facility] [place] the [place] past. This has been maintained by routine US and angiograms when needed. She was seen in office in mid November after a routine US that demonstrated patentcy of her bypass, and she had a healthy foot at the time. Within 2 weeks, she developed sores/wounds to her foot, which have progressed. US imaging done on this admission indicates possible occlusion of her outflow arteries. Pt herself denies any pain in toes, even though they are black. Admits some pain in her heel. Denies QUINTERO, fever, chest pain, SOB, abd pain, N/V, other complaints. She is very anxious and apprehensive regarding the future of her foot. Allergies Allergy/AdvReac Type Severity Reaction Status Date / Time enflurane Allergy Severe NAUSEA, Verified 12/20/22 11:22 jaundiced Iodinated Contrast Media Allergy Intermediate HIVES - Verified 12/20/22 11:22 IVP DYE CHECO Inhibitors Allergy Mild hives Verified 12/20/22 11:22 nickel Allergy Mild REDNESS Verified 12/20/22 11:22 AND ITCHING liraglutide [From Victoza] AdvReac Mild SEVERE Verified 12/20/22 11:22 NAUSEA Home Medications Medication Instructions Recorded Confirmed Type blood sugar diagnostic (Contour #[id number] ea 08/08/20 12/05/22 Rx Test Strips) glucagon HCl 1 mg solution for 1 mg subcut Q20M PRN hypoglycemia 06/29/21 12/20/22 Rx injection (Glucagon (HCl) #1 ea Emergency Kit) albuterol sulfate 90 mcg/actuation 2 puff inhalation Q4H PRN 07/03/21 12/20/22 Rx aerosol inhaler shortness of breath or wheezing #18 grams insulin detemir U-100 100 unit/mL See Rx Instructions subcut QPM #4 07/05/21 12/20/22 Rx subcutaneous solution (Levemir vials U-100 Insulin) Prosthetic gel liners #2 ea 12/11/21 12/05/22 Rx Suspension sleeves #2 ea 12/11/21 12/05/22 Rx omeprazole 20 mg capsule,delayed 20 mg PO HS #90 caps 01/01/22 12/20/22 Rx release insulin lispro 100 unit/mL 1 sliding scale dose subcut 02/16/22 12/20/22 History subcutaneous solution (Humalog USEASDIRECTD U-100 Insulin) atorvastatin 80 mg tablet 80 mg PO QPM #90 tabs 02/23/22 12/20/22 Rx cholecalciferol (vitamin D3) 25 1,000 unit PO DAILY 06/19/22 12/20/22 History mcg (1,000 unit) capsule (Vitamin D3) losartan 100 mg tablet (Cozaar) 100 mg PO QAM 06/25/22 12/20/22 History clopidogrel 75 mg tablet (Plavix) 75 mg PO QAM #90 tabs 07/12/22 12/20/22 Rx levothyroxine 100 mcg tablet 100 mcg PO DAILY #90 tabs 09/17/22 12/20/22 Rx docusate sodium 100 mg capsule 100 mg PO DAILY 10/25/22 12/20/22 History (Dulcolax Stool Softener (docusate)) nifedipine 60 mg tablet,extended 60 mg PO HS #90 tabs 10/31/22 12/20/22 Rx release tramadol 50 mg tablet See Rx Instructions PO QID PRN 11/14/22 12/20/22 Rx pain #40 tabs R BKA prosthesis S88.111A #1 ea 11/27/22 12/05/22 Rx carvedilol 25 mg tablet (Coreg) 25 mg PO BID 11/28/22 12/20/22 History gabapentin 100 mg capsule 100 mg PO .COMPLEX #270 caps 12/05/22 12/20/22 Rx clindamycin HCl 300 mg capsule 300 mg PO QID 12/20/22 12/20/22 History mometasone-formoterol HFA 200 2 puff inhalation BID PRN Other 12/20/22 12/20/22 History mcg-5 mcg/actuation aerosol inhaler (Dulera) spironolactone 25 mg tablet 25 mg PO BID 12/20/22 12/20/22 History Patient History Medical History (Updated 12/22/22 @ 14:42 by Cornelia Espinoza, DO) Anemia CHRONIC; BASELINE HGB STABLE AT 9-10 RANGE PER CHART REVIEW Asthma CONTROLLED/LAST USE OF INHALER "A LONG TIME AGO" Below-knee amputation of right lower extremity Cerebral aneurysm Chronic kidney disease STAGE III - FOLLOWS WITH NEPHRO- CREATINE USUALLY 1.3-1.5 Conductive hearing loss of right ear Constipation CREST syndrome Deep vein thrombosis RLE DVT DX'D 01/2018; CHRONIC-- ON XARELTO BID (PCP/VASCULAR MONITORING) Diabetes IDDM Diverticular disease GERD (gastroesophageal reflux disease) History of MRSA infection April 2017 (right foot - has since been amputated) --> no active infection. Hx of carotid stenosis BOTH SIDES - HAD LEFT CEA 2002 AND RIGHT CEA 1995 Hx of deep venous thrombosis 2017 R LE Hx of renal cell cancer R RENAL (2012) S/P R NEPHRECTOMY - NO RADIATION NO CHEMO Hyperkalemia Hyperlipidemia Hypertension Hypertensive urgency Hypothyroidism Occlusion and stenosis of carotid artery with cerebral infarction On anticoagulant therapy Osteoporosis Otalgia, left ear PAD (peripheral artery disease) Pressure ulcer of right foot, stage 2 Raynauds syndrome Renal artery stenosis RIGHT KIDNEY STENT ATTEMPTED 2010; S/P RIGHT NEPHRECTOMY 2012 Right lumbar radiculitis S/P angiogram of extremity left leg Scleroderma TMJ derangement Tympanic membrane perforation Vertigo Surgical History H/O carotid endarterectomy LEFT (2002), RIGHT (1995) H/O sinus surgery History of amputation of lesser toe of right foot MULTIPLE TOE AMPUTATIONS/I&D (ALL RT TOES) History of angioplasty MULTIPLE OF LE'S WITH STENTS TO LOWER EXTREMITIES PLACED History of appendectomy History of atherectomy LEFT (02/2017) History of cardiac cath 2012= NO STENTS ([facility]) History of carpal tunnel surgery RIGHT HAND, TRIGGER RIGHT FINGER History of cataract surgery RT/LEFT History of cholecystectomy History of colonoscopy History of endoscopic sinus surgery History of esophagogastroduodenoscopy (EGD) History of hysterectomy MERYL W/ BSO History of left breast biopsy 1997 History of nephrectomy RIGHT (2012) History of oophorectomy B/L OVARIES History of procedure for peripheral vascular disease LEFT POPLITEAL S/P PERONEAL ARTERY BYPASS 2012; RLE ANGIO WITH INTERVENTION 06/2017 History of tonsillectomy Hx of lumpectomy LEFT BREAST (BENIGN) Nausea and vomiting after administration of anesthetic agent S/P amputation right Below the knee amputation Family History Father Family hx of colon cancer Family history of diabetes mellitus Mother Lung cancer Stroke Unknown Rheumatoid arthritis Other No family history of adverse response to anesthesia No family history of bleeding disorder Social History Smoking Status: Never smoker Second Hand Exposure: No; Do You Dip or Chew Tobacco: No; Hx Alcohol Use: No Hx Substance Use: No Preferred Language: [place] Communication Ability: Effective Visual Impairment: No Limitations Hearing Ability: 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 Other Information That Helps Us Care for You: No Feels Safe at Home: Yes Safety Concerns: Feels Safe At This Time Diet: diabetic during the past year weight has: decreased > 10 lbs Seatbelt Use: always Do you think of yourself as: straight/heterosexual Gender Identity: Female Assistive Devices: Cane, Walker, Wheelchair and Other Review of Systems Review of Systems: All systems reviewed & are unremarkable except as noted in HPI & below Physical Exam Constitutional: WD/WN, vitals as above cooperative; not in distress Neck: trachea midline Respiratory: normal respiratory effort, lungs clear to auscultation Auscultation: + diminished lung sounds Cardiovascular: Rate/Rhythm: regular rate and regular rhythm Vessels: femoral pulses present, posterior tibial pulses present (RLE BKA, LLE monophasic doppler signal) and radial pulses present; + abnormal peripheral pulses and + dorsalis pedis pulses abnormal (RLE BKA, LLE no dopplerable pulse) Extremities: + abnormal capillary refill Gastrointestinal (Abdomen): Inspection/Auscultation: abdomen normal to inspection and normal bowel sounds Percussion/Palpation: abdomen soft; abdomen nontender Skin: no rashes, warm and dry + eschar (L toes ventral surface, pallor dorsal surface) and + pallor Neurologic: moves all extremities and awake; no focal motor deficits and not confused Psychiatric: Orientation: alert and oriented x 3 Affect: + depressed affect and + anxious affect Results & Data Vital Signs (Past 12 Hours) Vital Signs Temp Pulse Pulse Resp BP BP BP 12/21/22 08:00 51 L 12/21/22 08:00 12/21/22 07:30 36.5 C 56 L 17 129/71 12/21/22 04:00 12/21/22 04:04 36.5 C 56 L 18 155/70 H 12/21/22 01:10 67 12/21/22 00:00 36.8 C 63 18 197/70 H 12/21/22 00:07 36.8 C 65 18 197/70 H 12/20/22 23:30 64 21 159/70 H 12/20/22 23:00 59 L 20 134/61 12/20/22 22:50 59 L 21 12/20/22 22:40 62 21 Pulse Ox O2 Del Method 12/21/22 08:00 12/21/22 08:00 Room Air 12/21/22 07:30 99 Room Air 12/21/22 04:00 Room Air 12/21/22 04:04 95 12/21/22 01:10 12/21/22 00:00 96 Room Air 12/21/22 00:07 98 Room Air 12/20/22 23:30 92 Room Air 12/20/22 23:00 92 Room Air 12/20/22 22:50 93 12/20/22 22:40 95
--- NOTE | 2022-12-21 13:27 | Pharmacy Report ---
Pharmacy Glycemic Short Note 2 - Date of Service December 21, 2022 - Glycemic Short BSG Results (Last 24 hours): 12/20/22 12/20/22 12/21/22 12:41 18:24 00:23 Glucose 253 H POC Glucose 156 H 136 H 12/21/22 12/21/22 12/21/22 02:26 07:49 11:46 Glucose 140 H POC Glucose 108 H 229 H OUTPATIENT ANTIDIABETIC REGIMEN: * Lantus 15 units HS, lispro ASSESSMENT: * Patient admitted with diabetic foot infection. Pharmacy consulted for glycemic management. Received home basal yesterday at HS. * Fasting BSG 108 mg/dl - plan to continue with same basal insulin. Will start stress of 2 for novolog this AM. PLAN FOR INPATIENT GLYCEMIC CONTROL: * Hold outpatient oral diabetes medications * Basal insulin * Lantus 15 units HS * Bolus insulin * NovoLog per scale ACHS or Q6hrs while NPO * Goal Range: Low 110 mg/dL - High 140 mg/dL * Correction Factor: 35 mg/dL/unit * Nutritional / Prandial insulin per carb ratio of 1 unit per 12 grams CHO consumed
--- NOTE | 2022-12-21 13:31 | XCELERA ---
[id number]
[2022-12-21 16:15] LABS: Appearance Urine Clear (Clear); Bacteria Urine Automated Negative (Negative); Bilirubin Urine Negative (Negative); Blood Urine Negative (Negative); Color Urine Yellow; Epithelial Cell Urine Auto 20-30 /lpf (0-5); Glucose Urine UA Trace (Negative); Ketones Urine Negative (Negative); Leukocyte Esterase Urine 2+ (Negative); Nitrite Urine Negative (Negative); Protein Urine Trace (Negative); RBC Urine Automated 0-4 /hpf (0-4); Urobilinogen Urine Negative (Negative); pH Urine 5.5 (4.5-7.5)
[2022-12-21] MEDS: HEPARIN SODIUM/DEXTROSE 25,000 UNITS/500 ML BAG IV SCH (17:15)
--- NOTE | 2022-12-21 19:45 | Billing Data ---
Date of Service December 21, 2022 Coding Level of Care Code 92923 SUB INP/OBS CARE MIN
[2022-12-21] MEDS: LANTUS PER UNIT CHARGE SQ SCH (21:30)
[2022-12-22] MEDS: LEVOTHYROXINE SODIUM 100 MCG TABLET PO SCH (06:09)
--- NOTE | 2022-12-22 07:28 | Hospitalist Progress Note ---
Date of Service December 22, 2022 Assessment & Plan (1) Gangrene due to arterial insufficiency: Plan: 77 year old female Hx Raynaud syndrome, PAD, HTN, dyslipidemia, DM1 w/ peripheral neuropathy, GERD, CREST syndrome, hypothyroidism admitted for gangrene / LLE diabetic foot wound with evidence of arterial insufficiency. LLE Diabetic Foot Ulcer/Dry Gangrene - Venous Doppler w/o DVT - L Foot XR w/ soft tissue swelling w/o acute bony anomaly, osteopenia, or degenerative change - Arterial Duplex w/ extensive atherosclerotic plaque in LLE, patent bypass graft, but occluded [place] L superficial femoral and popliteal arteries, diminished flow within L calf vessels - Continue Vanc/Cefepime - Ongoing Heparin gtt - Continue Plavix - Losartan and Coreg continued - Continue atorvastatin 80mg daily - Fortunately pain not bad when lying in bed, Tylenol as needed, can add on medications as necessary for pain control - Vascular Surgery consulted, for angio Saturday, also ordered prednisone for premedication of Hx renal insufficiency and dye allergy (2) Diabetic foot ulcer: Plan: see above (3) PAD (peripheral artery disease): Plan: - Known Hx severe PAD in bilateral LE, resulting in RLE BKA, and remote Hx of LLE distal SFA to peroneal artery bypass - Evidence of worsening PAD in LLE, see #1 (4) Diabetes: Plan: - Basal/bolus insulin at this time - A1c 7.5% on 12/21/22 (5) Hypertension: Plan: - Beta-fatemeh as noted - Continue nifedipine 60 mg p.o. at bedtime, losartan 100 mg p.o. every morning - Hypertensive in the setting of pain, continue pain control Plan DVT prophylaxis: Heparin gtt Diet: Type I DM Disposition: Tele CODE STATUS: Full code Admission and Anticipated Discharge Date Admission Date: December 20, 2022 Subjective No acute overnight events. Denies complaints save for some left heel pain, mild. No SOB or chest pain. Review of Systems Review of Systems: All systems reviewed & are unremarkable except as noted in Subjective Physical Exam Constitutional: WD/WN, vitals as above Respiratory: normal respiratory effort, lungs clear to auscultation Cardiovascular: RRR, no murmur, no edema Vessels: + abnormal peripheral pulses Extremities: + abnormal capillary refill Gastrointestinal (Abdomen): normal bowel sounds, soft, nontender, no hepatosplenomegaly Skin: no rashes, warm and dry + eschar (L toes ventral surface, pallor dorsal surface) Psychiatric: A+Ox3, euthymic affect Results & Data Results & Data Vital Signs (Past 12 Hours) Vital Signs Temp Pulse Pulse Resp BP Pulse Ox O2 Del Method 12/22/22 03:21 37.1 C 57 L 17 148/67 H 97 Room Air 12/21/22 22:02 62 12/21/22 20:00 Room Air 12/21/22 23:15 36.7 C 67 20 188/67 H 100 Room Air 12/21/22 19:38 36.9 C 63 20 179/71 H 95 Room Air PG Care Time/CCT Total # of Minutes Spent Total Time Spent with Patient: Total time spent is greater than 50% in coordination of care (as documented) at patient's floor/unit and/or counseling patient: Coding Level of Care Code 02134 SUB INP/OBS CARE 2/35MIN Diagnoses Gangrene due to arterial insufficiency I77.1; I96 Diabetic foot ulcer E11.621; L97.509 Diabetic foot ulcer location: unspecified part of foot Laterality: left PAD (peripheral artery disease) I73.9 Diabetes E11.9 Hypertension I10 (2) Diabetic foot ulcer Diabetic foot ulcer location: unspecified part of foot Laterality: left
[2022-12-22 07:46] LABS: Basophils # (auto) 0.02 K/uL (0-0.2); Basophils % (auto) 0.3 %; Eosinophils # (auto) 0.26 K/uL (0-0.50); Eosinophils % (auto) 3.4 %; Hematocrit (blood only) 28.4 % (37.0-47.0); Hemoglobin 9.7 g/dl (12.0-16.0); Immature Granulocytes # (auto) 0.13 K/uL (0.01-0.20); Immature Granulocytes % (auto) 1.7 %; Lymphocytes % (auto) 19.8 %; Mean Corpuscular Hemoglobin 30.6 pg (25.0-34.0); Mean Corpuscular Hgb Conc 34.2 g/dL (32.0-36.0); Mean Corpuscular Volume 89.6 fL (80.0-100.0); Mean Platelet Volume 11.6 fL (9.4-12.4); Monocytes # (auto) 0.43 K/uL (0.11-0.59); Monocytes % (auto) 5.7 %; Neutrophils # (auto) 5.24 K/uL (1.40-6.50); Neutrophils % (auto) 69.1 %; Platelet Count 235 K/uL (130-400); RDW Coefficient of Variation 14.1 % (11.5-14.5); RDW Standard Deviation 46.5 fL (36.4-46.3); Red Blood Count 3.17 M/uL (4.20-5.40); White Blood Count 7.58 K/ul (4.8-10.8)
[2022-12-22 08:25] LABS: Partial Thromboplastin Time 56.1 Seconds (21.0-31.0)
[2022-12-22] MEDS: INSULIN ASPART PER UNIT CHARGE SC SCH ×4 (08:30→20:13)
[2022-12-22] MEDS: CEFEPIME 2,000 MG in SYRINGE 0 ML IV SCH ×2 (08:39→20:20)
[2022-12-22] MEDS: CHOLECALCIFEROL 1,000 UNITS 25 MCG TAB PO SCH (08:43)
[2022-12-22] MEDS: CLOPIDOGREL BISULFATE 75 MG TAB PO SCH (08:43)
[2022-12-22] MEDS: SPIRONOLACTONE 25 MG TAB PO SCH ×2 (08:43→17:25)
[2022-12-22] MEDS: carvediloL 25 MG TAB PO SCH ×2 (08:43→17:26)
[2022-12-22] MEDS: GABAPENTIN 100 MG CAP PO SCH ×2 (08:43→20:38)
[2022-12-22] MEDS: LOSARTAN POTASSIUM 50 MG TAB PO SCH (08:43)
[2022-12-22] MEDS: DOCUSATE SODIUM 100 MG CAP PO SCH (08:45)
[2022-12-22 09:45] LABS: BUN Creatinine Ratio 13.7 (10-20); Calcium 9.1 mg/dl (8.6-10.3); Creatinine Clr Calc Pharmacy 42.2 ml/min; Est GFR (African American) 61.9 ml/min; Est GFR (Non-African American) 53.4 ml/min; Potassium 3.8 mmol/L (3.5-5.1)
--- NOTE | 2022-12-22 11:12 | Pharmacy Report ---
Pharmacy PK ABX Note - Date of Service December 22, 2022 - Assessment and Plan Assessment 77 yo F receiving Vancomycin and Cefepime for left lower extremity diabetic foot ulcer. * Day #3 of antimicrobial therapy. * Afebrile. No leukocytosis. Renal fxn stable. Cultures pending. * Vascular surgery consulted for PVD and planning surgical intervention on December 24. Plan Vancomycin * Current regimen: 1000 mg IV every 18 hours * Random level obtained 12/22/22 resulted as 18.5 mcg/mL. This is supratherapeutic. * Change to 1000 mg IV every 24 hours. Predicted AUC at steady state: 472 mg/L.hr. * Repeat random level ordered for: 12/24/22 Pharmacy will continue to follow and will adjust dose/frequency as necessary. Thank you. Pharmacy has transitioned to AUC monitoring for vancomycin. AUC/BRENDAN is the preferred PK/PD target and is associated with decreased risk of nephrotoxicity compared to traditional trough targets.
[2022-12-22] MEDS: ACETAMINOPHEN 325 MG TAB PO PRN (12:28)
[2022-12-22] MEDS: VANCOMYCIN HCL 1,000 MG in SODIUM CHLORIDE 0.9% 250 ML IV SCH (17:06)
[2022-12-22] MEDS: LANTUS PER UNIT CHARGE SQ SCH (20:16)
[2022-12-22] MEDS: ATORVASTATIN 40 MG TAB PO SCH (20:38)
[2022-12-22] MEDS: NIFEdipine EXTENDED REL 30 MG TABCR PO SCH (20:38)
[2022-12-22] MEDS: PANTOprazole 40 MG TAB PO SCH (20:39)
[2022-12-22] MEDS: HEPARIN SODIUM/DEXTROSE 25,000 UNITS/500 ML BAG IV SCH (23:27)
[2022-12-23] MEDS: LEVOTHYROXINE SODIUM 100 MCG TABLET PO SCH (05:44)
--- NOTE | 2022-12-23 07:41 | Hospitalist Progress Note ---
Date of Service December 23, 2022 Assessment & Plan (1) Gangrene due to arterial insufficiency: Plan: 77 year old female Hx Raynaud syndrome, PAD, HTN, dyslipidemia, DM1 w/ peripheral neuropathy, GERD, CREST syndrome, hypothyroidism admitted for gangrene / LLE diabetic foot wound with evidence of arterial insufficiency, also COVID-19 positive. LLE Diabetic Foot Ulcer/Dry Gangrene - Venous Doppler w/o DVT - L Foot XR w/ soft tissue swelling w/o acute bony anomaly, osteopenia, or degenerative change - Arterial Duplex w/ extensive atherosclerotic plaque in LLE, patent bypass graft, but occluded [place] L superficial femoral and popliteal arteries, diminished flow within L calf vessels - Continue Vanc/Cefepime, Heparin gtt, Plavix - Losartan, Coreg, atorvastatin continued - Fortunately pain not bad when lying in bed, Tylenol as needed, can add on medications as necessary for pain control - Vascular Surgery consulted, for angio tomorrow, also ordered prednisone for premedication given Hx renal insufficiency and dye allergy (2) Diabetic foot ulcer: Plan: see above (3) PAD (peripheral artery disease): Plan: - Known Hx severe PAD in bilateral LE, resulting in RLE BKA, and remote Hx of LLE distal SFA to peroneal artery bypass - Evidence of worsening PAD in LLE, see #1 (4) Diabetes: Plan: - Hx DM1, continue basal/bolus insulin at this time. A1c 7.5% on 12/21/22. (5) Hypertension: Plan: Beta-fateemh as noted. Continue nifedipine 60 mg p.o. at bedtime, losartan 100 mg p.o. every morning. Hypertensive at times in the setting of pain, continue pain control. Plan DVT prophylaxis: Heparin gtt Diet: Type I DM, NPO at midnight for angio Disposition: Tele CODE STATUS: Full code Admission and Anticipated Discharge Date Admission Date: December 20, 2022 Subjective No acute overnight events or patinet complaints, still with some L foot pain, improved with Tylenol. Review of Systems Review of Systems: All systems reviewed & are unremarkable except as noted in Subjective Physical Exam Constitutional: WD/WN, vitals as above Cardiovascular: Vessels: + abnormal peripheral pulses Extremities: + abnormal capillary refill Skin: no rashes, warm and dry + eschar (L toes ventral surface, pallor dorsal surface) Psychiatric: A+Ox3, euthymic affect Results & Data Results & Data Vital Signs (Past 12 Hours) Vital Signs Temp Pulse Pulse Resp BP Pulse Ox O2 Del Method 12/23/22 04:26 36.9 C 58 L 20 125/65 98 Room Air 12/22/22 22:01 56 L 12/22/22 23:36 36.4 C L 57 L 20 174/73 H 97 Room Air 12/22/22 20:00 Room Air 12/22/22 19:48 37.0 C 58 L 20 149/63 H 98 Room Air PG Care Time/CCT Total # of Minutes Spent Total Time Spent with Patient: Total time spent is greater than 50% in coordination of care (as documented) at patient's floor/unit and/or counseling patient: Coding Level of Care Code 38813 SUB INP/OBS CARE 235MIN Diagnoses Gangrene due to arterial insufficiency I77.1; I96 Diabetic foot ulcer E11.621; L97.509 Diabetic foot ulcer location: unspecified part of foot Laterality: left PAD (peripheral artery disease) I73.9 Diabetes E11.9 Hypertension I10 (2) Diabetic foot ulcer Diabetic foot ulcer location: unspecified part of foot Laterality: left
[2022-12-23 07:50] LABS: Basophils # (auto) 0.03 K/uL (0-0.2); Basophils % (auto) 0.3 %; Eosinophils # (auto) 0.28 K/uL (0-0.50); Hematocrit (blood only) 26.8 % (37.0-47.0); Hemoglobin 8.9 g/dl (12.0-16.0); Immature Granulocytes % (auto) 1.1 %; Lymphocytes # (auto) 2.14 K/uL (1.2-3.4); Lymphocytes % (auto) 23.3 %; Mean Corpuscular Hemoglobin 30.5 pg (25.0-34.0); Mean Corpuscular Hgb Conc 33.2 g/dL (32.0-36.0); Mean Corpuscular Volume 91.8 fL (80.0-100.0); Mean Platelet Volume 11.3 fL (9.4-12.4); Monocytes # (auto) 0.64 K/uL (0.11-0.59); Neutrophils # (auto) 6.01 K/uL (1.40-6.50); Neutrophils % (auto) 65.3 %; Platelet Count 234 K/uL (130-400); RDW Standard Deviation 47.6 fL (36.4-46.3); Red Blood Count 2.92 M/uL (4.20-5.40)
[2022-12-23 08:01] LABS: BUN Creatinine Ratio 13.3 (10-20); Calcium 9.1 mg/dl (8.6-10.3); Est GFR (African American) 59.7 ml/min; Est GFR (Non-African American) 51.5 ml/min
[2022-12-23] MEDS: carvediloL 25 MG TAB PO SCH ×2 (08:25→17:53)
[2022-12-23] MEDS: CHOLECALCIFEROL 1,000 UNITS 25 MCG TAB PO SCH (08:26)
[2022-12-23] MEDS: CLOPIDOGREL BISULFATE 75 MG TAB PO SCH (08:26)
[2022-12-23] MEDS: DOCUSATE SODIUM 100 MG CAP PO SCH (08:26)
[2022-12-23] MEDS: SPIRONOLACTONE 25 MG TAB PO SCH ×2 (08:26→17:53)
[2022-12-23] MEDS: LOSARTAN POTASSIUM 50 MG TAB PO SCH (08:26)
[2022-12-23] MEDS: GABAPENTIN 100 MG CAP PO SCH ×3 (08:26→20:26)
[2022-12-23] MEDS: CEFEPIME 2,000 MG in SYRINGE 0 ML IV SCH ×2 (08:27→20:24)
[2022-12-23] MEDS: INSULIN ASPART PER UNIT CHARGE SC SCH ×4 (08:29→20:14)
[2022-12-23 08:31] LABS: Partial Thromboplastin Ratio 1.7
[2022-12-23 08:52] LABS: Partial Thromboplastin Time 47.7 Seconds (21.0-31.0)
--- NOTE | 2022-12-23 13:20 | Pharmacy Report ---
Pharmacy Glycemic Short Note 2 - Date of Service December 23, 2022 - Glycemic Short BSG Results (Last 24 hours): 12/22/22 12/22/22 12/23/22 15:54 20:00 07:10 Glucose 118 H POC Glucose 106 H 110 H 12/23/22 12/23/22 07:39 11:35 Glucose POC Glucose 112 H 123 H OUTPATIENT ANTIDIABETIC REGIMEN: * Lantus 15 units HS, lispro ASSESSMENT: 12/23/22 * Patient's BSGs yesterday were [phone] mg/dL. Patient received 30 units of insulin (17 units of basal and 13 units of bolus). * Patient's BSGs today are 112 (fasting)-123 mg/dL. * Patient to start three doses of prednisone 50 mg today at [phone]. * With 1800 dose will add NPH 0.4 units/kg... this will be expected to cover 1800 and 0200 prednisone doses. * Continue current Lantus and Levemir BACKGROUND * Patient admitted with diabetic foot infection. Pharmacy consulted for glycemic management. Received home basal yesterday at HS. * Fasting BSG 108 mg/dl - plan to continue with same basal insulin. Will start stress of 2 for novolog this AM. PLAN FOR INPATIENT GLYCEMIC CONTROL: * Hold outpatient oral diabetes medications * Basal insulin * Lantus 17 units HS * Bolus insulin * NovoLog per scale ACHS or Q6hrs while NPO * Goal Range: Low 110 mg/dL - High 140 mg/dL * Correction Factor: 35 mg/dL/unit * Nutritional / Prandial insulin per carb ratio of 1 unit per 9 grams CHO consumed
[2022-12-23] MEDS: VANCOMYCIN HCL 1,000 MG in SODIUM CHLORIDE 0.9% 250 ML IV SCH (17:10)
[2022-12-23] MEDS ORDERED: predniSONE 50 MG TAB PO SCH (18:00)
[2022-12-23] MEDS ORDERED: NovoLIN-N (NPH) PER UNIT CHARGE SQ SCH (18:00)
[2022-12-23] MEDS: LANTUS PER UNIT CHARGE SQ SCH (20:14)
[2022-12-23] MEDS: NIFEdipine EXTENDED REL 30 MG TABCR PO SCH (20:25)
[2022-12-23] MEDS: PANTOprazole 40 MG TAB PO SCH (20:26)
[2022-12-23] MEDS: ATORVASTATIN 40 MG TAB PO SCH (20:26)
[2022-12-24] MEDS: predniSONE 50 MG TAB PO SCH ×2 (02:35→09:27)
[2022-12-24 06:15] LABS: Creatinine Clr Calc Pharmacy 37.8 ml/min; Est GFR (African American) 54.1 ml/min; Est GFR (Non-African American) 46.7 ml/min
[2022-12-24] MEDS: LEVOTHYROXINE SODIUM 100 MCG TABLET PO SCH (06:17)
[2022-12-24 06:42] LABS: Partial Thromboplastin Ratio 1.7
[2022-12-24 06:47] LABS: Partial Thromboplastin Time 48.3 Seconds (21.0-31.0)
[2022-12-24] MEDS ORDERED: SODIUM CHLORIDE 0.9% 1000ML 1,000 ML IV SCH ×2 (07:00→11:57)
[2022-12-24] MEDS: HEPARIN SODIUM/DEXTROSE 25,000 UNITS/500 ML BAG IV SCH ×2 (08:04→12:11)
[2022-12-24] MEDS: INSULIN ASPART PER UNIT CHARGE SC SCH ×4 (08:04→21:03)
[2022-12-24] MEDS: DOCUSATE SODIUM 100 MG CAP PO SCH (08:07)
[2022-12-24] MEDS: CEFEPIME 2,000 MG in SYRINGE 0 ML IV SCH ×2 (08:08→21:07)
[2022-12-24] MEDS: carvediloL 25 MG TAB PO SCH ×2 (08:09→17:21)
[2022-12-24] MEDS: CHOLECALCIFEROL 1,000 UNITS 25 MCG TAB PO SCH (08:09)
[2022-12-24] MEDS: GABAPENTIN 100 MG CAP PO SCH ×2 (08:10→21:08)
[2022-12-24] MEDS: LOSARTAN POTASSIUM 50 MG TAB PO SCH (08:11)
[2022-12-24] MEDS: SPIRONOLACTONE 25 MG TAB PO SCH ×2 (08:12→17:20)
[2022-12-24] MEDS: CLOPIDOGREL BISULFATE 75 MG TAB PO SCH (08:12)
[2022-12-24] MEDS ORDERED: FAMOTIDINE 20 MG TAB PO ONE (09:00)
[2022-12-24] MEDS ORDERED: diphenhydrAMINE Capsule 25 MG CAP PO ONE (09:00)
--- NOTE | 2022-12-24 09:59 | History & Physical Bridge Note ---
Date of Service December 24, 2022 History & Physical Bridge Note Patient is for arteriography today with possible intervention. I have discussed the risks options and benefits of the procedure with the patient. The patient understands the risks options and benefits and agrees to the procedure. I have examined the patient, reviewed the History & Physical and in the interval since the performance of the History & Physical I have noted the following changes of clinical significance: no changes noted
[2022-12-24] MEDS ORDERED: NovoLIN-N (NPH) PER UNIT CHARGE SQ SCH (10:00)
[2022-12-24] MEDS ORDERED: fentaNYL citrate PF 100 MCG/2 ML VIAL ONE (10:20)
[2022-12-24] MEDS ORDERED: HEPARIN SOD (PORCINE) 1000 UNIT/ML ONE (10:20)
[2022-12-24] MEDS ORDERED: MIDAZOLAM HCL 1 MG/ML 2ML VIAL ONE (10:20)
[2022-12-24] MEDS ORDERED: LIDOCAINE 1% LOCAL 20 ML VIAL ONE (10:26)
--- NOTE | 2022-12-24 10:26 | Pre Anesthesia Assessment ---
Date of Service December 24, 2022 Pre Sedation Assessment Vital Signs Temp Pulse Pulse Pulse Resp BP BP 12/24/22 09:53 36.5 C 62 18 179/78 H 12/24/22 02:47 36.6 C 58 L 18 123/66 12/23/22 22:05 58 L 12/23/22 23:11 36.8 C 60 18 164/70 H 12/23/22 19:11 37.1 C 62 20 179/73 H 12/23/22 16:45 37.0 C 62 18 149/70 H 12/23/22 16:24 58 L 12/23/22 11:35 37.2 C 58 L 18 136/72 12/23/22 10:43 Pulse Ox O2 Del Method 12/24/22 09:53 100 Room Air 12/24/22 02:47 94 Room Air 12/23/22 22:05 12/23/22 23:11 97 Room Air 12/23/22 19:11 95 Room Air 12/23/22 16:45 90 Room Air 12/23/22 16:24 12/23/22 11:35 95 Room Air 12/23/22 10:43 Room Air Cardiovascular RRR, no murmur, no edema Respiratory normal respiratory effort, lungs clear to auscultation Pre-Sedation Airway Assessment Smoking Status: Never smoker Hx Sleep Apnea: No Short, Thick Neck: No Thyromental Distance: < 3.5 Finger Breadths Oral Cavity: + WNL Mallampati Class: III ASA: ASA3 NPO Status Date of Last Intake of Fluids: 12/23/22 Time of Last Intake of Fluids: 17:00 Last Oral Intake of Fluids Comment: sip with meds Date of Last Intake of Solid Food: 12/23/22 Time of Last Intake of Solid Foods: 17:00 Procedure Planning Contraindications for Sedation: none Current Medications Reviewed: Yes Notes The planned sedation has been discussed with the patient. Informed Consent was obtained. I have identified the patient, determined the appropriateness of sedation and have assessed the patient immediately prior to the procedure. All medicine(s) and interventions are by my order.
[2022-12-24] MEDS ORDERED: VISIPAQUE IV PRN (11:27)
--- NOTE | 2022-12-24 11:41 | Procedure Note ---
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 Post-Op Diagnosis: Gangrene due to arterial insufficiency I identified the patient and participated in the time-out.: Yes Procedure Operation Date: 12/24/22 09:50 Actual Procedures p Left Lower Extremity Angiogram, Interior Tibial Artery, Ultrasound Localization of Right Femoral Artery, Moderate Sedation [id number](Right) - Wesley Umana MD Surgeon Wesley Umana MD Production Supervisor Trainee none Estimated Blood Loss 10 Findings Consistent with Post-Op Diagnosis Specimens none Anesthesia Type RN Sedation Complications none Disposition Accompanied Patient To Recovery: No Disposition: Recovery Room Indications This is a 77-year-old female who had a left femoral to anterior tibial bypass in the past. She is admitted this time with gangrene of the toes of the left foot. She has had multiple procedures in the left lower extremity for graft preservation. Ultrasound showed that there may have been another stenosis and/or occlusion of the outflow vessel of the left leg. Arteriography with possible intervention was recommended. I have discussed the risks options and benefits of the procedure with the patient. The patient understands the risks options and benefits and agrees to the procedure. Description of Procedure Patient was taken the operating placed supine position. After the groins were prepped draped in a sterile manner a timeout was performed and the patient was identified. Local anesthetic was administered to the right groin. Ultrasound was used to locate the common femoral artery and right side. It was of normal size and was patent. Under ultrasound guidance the right common femoral artery was punctured and 5 Vincentian sheath inserted. Using a rim catheter and 035 Glidewire the left side was cannulated from the right side. The rim catheter was advanced to the external iliac and arteriography was performed. This showed the common femoral profundofemoral superficial femoral arteries to be widely patent. The graft was patent with mild narrowing seen proximally just before the anastomosis. Rapid flow was seen through the graft. The distal anastomosis was widely patent however just beyond there approximately 2 to 3 cm was a short occlusion. There was also another short occlusion in the mid third of the anterior tibial artery. There was a longer occlusion approximately 5 cm at the ankle level of the anterior tibial artery. Dorsalis pedis was then seen beyond there and reconstituted. The posterior tibial also reconstituted from the anterior tibial artery. The point we inserted an 035 stiff Glidewire and exchanged the sheath to a 6 Vincentian destination. Using an 014 command ES and an 014 quick cross the 2 lesions in the anterior tibial artery were crossed. The quick cross was removed. We then inserted a 3 x 200 Esmond balloon. This cannot be passed through the second lesion however was abutting against it. The balloon was inflated. There was a proximal waist which dilated nicely. Once we deflated the balloon it was advanced through the next lesion fairly easily. This area was also ballooned with the Esmond balloon. The waist was noted and dilated nicely. Balloon was then removed. Completion angio showed a widely patent anterior tibial artery and the 2 areas that were occluded. We decided not to do anything to the lesion just above the ankle being there was excellent collateral flow filling the posterior tibial artery and distal dorsalis pedis. This lesion was fairly long and totally occluded. No attempt was made to treat this lesion due to the fact that by treating the lesion may disrupt the collateral flow to the foot at this point. Sheath and wire were then removed. Pressure was applied. Adequate hemostasis was noted. Sterile dressings were applied to the wound.The patient left the operation room in satisfactory condition and tolerated the procedure well. All needle and sponge counts were correct at the end of the procedure. I attest to the content of the Intraoperative Record and any orders documented therein. Any exceptions are noted below.
--- NOTE | 2022-12-24 13:20 | Pharmacy Report ---
Pharmacy Glycemic Short Note 2 - Date of Service December 24, 2022 - Glycemic Short BSG Results (Last 24 hours): 12/23/22 12/23/22 12/23/22 16:39 19:36 23:13 POC Glucose 111 H 204 H 215 H 12/24/22 12/24/22 07:41 11:58 POC Glucose 186 H 160 H OUTPATIENT ANTIDIABETIC REGIMEN: * Lantus 15 units HS, lispro ASSESSMENT: 12/24/22 * Patient's BSGs yesterday were [phone] mg/dL. Patient received p rednisone 50 mg at 1800, 0200, and 1000. * Patient received NPH 25 units with 1800 dose and will receive 17 units today with 1000 dose. Patient NPO for angiogram. * Tighten Novolog slightly due to steroids. * Continue lantus as fastings well controlled when not received steroids. 12/23/22 * Patient's BSGs yesterday were [phone] mg/dL. Patient received 30 units of insulin (17 units of basal and 13 units of bolus). * Patient's BSGs today are 112 (fasting)-123 mg/dL. * Patient to start three doses of prednisone 50 mg today at [phone]. * With 1800 dose will add NPH 0.4 units/kg... this will be expected to cover 1800 and 0200 prednisone doses. * Continue current Lantus and Levemir BACKGROUND * Patient admitted with diabetic foot infection. Pharmacy consulted for glycemic management. Received home basal yesterday at HS. * Fasting BSG 108 mg/dl - plan to continue with same basal insulin. Will start stress of 2 for novolog this AM. PLAN FOR INPATIENT GLYCEMIC CONTROL: * Hold outpatient oral diabetes medications * Basal insulin * Lantus 17 units HS * Bolus insulin * NovoLog per scale ACHS or Q6hrs while NPO * Goal Range: Low 110 mg/dL - High 140 mg/dL * Correction Factor: 25 mg/dL/unit * Nutritional / Prandial insulin per carb ratio of 1 unit per 7 grams CHO consumed
--- NOTE | 2022-12-24 13:25 | Pharmacy Report ---
Pharmacy PK ABX Note - Date of Service December 24, 2022 - Assessment and Plan Assessment 77 yo F receiving Vancomycin and Cefepime for left lower extremity diabetic foot ulcer. * Day #5 of antimicrobial therapy. * Afebrile. No leukocytosis. Renal fxn stable. Cultures pending. * Vascular surgery consulted for PVD and had angiogram with IV contrast on 12/24/22. Plan Vancomycin * Current regimen: 1000 mg IV every 24 hours * Random level obtained 12/22/22 resulted as 18.3 mcg/mL. This is supratherapeutic. * Continue 1000 mg IV every 24 hours. Predicted AUC at steady state: 479 mg/L.hr. * Repeat in 3-4 days if continue or if significant change in kidney function Pharmacy will continue to follow and will adjust dose/frequency as necessary. Thank you. Pharmacy has transitioned to AUC monitoring for vancomycin. AUC/BRENDAN is the preferred PK/PD target and is associated with decreased risk of nephrotoxicity compared to traditional trough targets.
--- NOTE | 2022-12-24 16:43 | Hospitalist Progress Note ---
Date of Service December 24, 2022 Assessment & Plan (1) Gangrene due to arterial insufficiency: Plan: Involving left third fourth and fifth toes. She underwent angioplasty procedure of the left anterior tibial artery today, December 24, per Dr. Umana. She remains on a heparin drip. She also is on vancomycin and cefepime. (2) Diabetic foot ulcer: Plan: Local care. 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 Angioplasty procedure to left anterior tibial artery today, December 24, per Dr. Umana (4) Diabetes: Plan: ADA diet. Sliding scale coverage as needed. Continue current medical management (5) Hypertension: Plan: Controlled. Continue current medical management Plan Anticipate eventual discharge to home Admission and Anticipated Discharge Date Admission Date: December 20, 2022 Subjective The patient was seen postangioplasty of the left lower extremity. She is alert and oriented. No distress. She underwent angioplasty of the left anterior tibial artery per Dr. Umana. She remains on a heparin drip. She remains on vancomycin and cefepime. Dry gangrenous changes noted on the third fourth and fifth toes distally of the left foot Review of Systems Review of Systems: Constitutional-no fever or chills ENT-no blurred vision, no double vision, no epistaxis, no sore throat Respiratory-no cough, no wheezing, no shortness of breath Cardiac-no palpitations, no chest pain, no syncope GI-no nausea, vomiting, diarrhea, melena, hematochezia -no urinary retention, no urinary incontinence, no dysuria, no hematuria Musculoskeletal-no joint pain, no muscle tenderness Skin-dry gangrenous changes of the distal aspects of the left third fourth and fifth toes Neuro-no isolated weakness, no paresthesia, no weakness Psych-no depression, no anxiety Physical Exam Physical Exam: General-alert and oriented x3, no fevers, no chills HEENT-head atraumatic and normocephalic, pupils equal and reactive to light, extraocular muscles intact Neck-no lymphadenopathy or thyromegaly, trachea midline Chest-clear to auscultation percussion. No rales wheezing or rhonchi Cardiac-regular rate and rhythm, normal S1 and S2 Abdomen-normal bowel sounds, nontender, no hepatosplenomegaly Extremities-dry gangrenous changes of the left third fourth and fifth toes Neuro-cranial nerves II through XII intact, motor and sensory function within normal limits, strength symmetrical , no focal deficits Psych-normal affect, normal mood Results & Data Results & Data Vital Signs (Past 12 Hours) Vital Signs Temp Pulse Pulse Resp BP BP Pulse Ox 12/24/22 16:06 56 L 12/24/22 13:42 36.6 C 56 L 18 174/74 H 98 12/24/22 13:12 36.5 C 57 L 18 172/75 H 97 12/24/22 12:42 36.4 C L 63 18 188/71 H 98 12/24/22 12:27 36.4 C L 65 18 171/75 H 98 12/24/22 12:12 36.5 C 62 19 180/65 H 96 12/24/22 11:57 36.5 C 62 18 189/69 H 98 12/24/22 11:43 64 16 180/73 H 100 12/24/22 11:38 62 16 174/71 H 100 12/24/22 11:35 62 16 172/72 H 100 12/24/22 11:25 62 16 171/72 H 100 12/24/22 11:20 61 16 170/71 H 100 12/24/22 11:15 61 16 163/70 H 100 12/24/22 11:10 61 16 170/76 H 100 12/24/22 11:30 63 16 180/72 H 100 12/24/22 11:05 62 16 163/75 H 100 12/24/22 11:00 61 16 165/72 H 100 12/24/22 10:55 63 16 176/74 H 100 12/24/22 10:50 66 16 188/74 H 100 12/24/22 10:48 65 16 187/76 H 100 12/24/22 10:26 52 L 12/24/22 09:53 36.5 C 62 18 179/78 H 100 O2 Del Method 12/24/22 16:06 12/24/22 13:42 Room Air 12/24/22 13:12 Room Air 12/24/22 12:42 Room Air 12/24/22 12:27 Room Air 12/24/22 12:12 Room Air 12/24/22 11:57 Room Air 12/24/22 11:43 Oxymask 12/24/22 11:38 Oxymask 12/24/22 11:35 Oxymask 12/24/22 11:25 Oxymask 12/24/22 11:20 Oxymask 12/24/22 11:15 Oxymask 12/24/22 11:10 Oxymask 12/24/22 11:30 Oxymask 12/24/22 11:05 Oxymask 12/24/22 11:00 Oxymask 12/24/22 10:55 Oxymask 12/24/22 10:50 Oxymask 12/24/22 10:48 Oxymask 12/24/22 10:26 12/24/22 09:53 Room Air Laboratory Results 12/23/22 07:10 12/24/22 05:28 PG Care Time/CCT Total # of Minutes Spent Total Time Spent with Patient: Total time spent is greater than 50% in coordination of care (as documented) at patient's floor/unit and/or counseling patient: Coding Level of Care Code 49778 SUB INP/OBS CARE 3/50MIN Diagnoses Gangrene due to arterial insufficiency I77.1; I96 Diabetic foot ulcer E11.621; L97.509 Diabetic foot ulcer location: unspecified part of foot Laterality: left PAD (peripheral artery disease) I73.9 Diabetes E11.9 Hypertension I10 (2) Diabetic foot ulcer Diabetic foot ulcer location: unspecified part of foot Laterality: left
[2022-12-24] MEDS: VANCOMYCIN HCL 1,000 MG in SODIUM CHLORIDE 0.9% 250 ML IV SCH (16:54)
[2022-12-24] MEDS: LANTUS PER UNIT CHARGE SQ SCH (21:03)
[2022-12-24] MEDS: ATORVASTATIN 40 MG TAB PO SCH (21:07)
[2022-12-24] MEDS: NIFEdipine EXTENDED REL 30 MG TABCR PO SCH (21:07)
[2022-12-24] MEDS: PANTOprazole 40 MG TAB PO SCH (21:08)
[2022-12-25] MEDS: LEVOTHYROXINE SODIUM 100 MCG TABLET PO SCH (06:04)
[2022-12-25 07:09] LABS: Basophils # (auto) 0.05 K/uL (0-0.2); Basophils % (auto) 0.2 %; Hematocrit (blood only) 29.1 % (37.0-47.0); Hemoglobin 9.8 g/dl (12.0-16.0); Immature Granulocytes % (auto) 2.9 %; Lymphocytes # (auto) 1.62 K/uL (1.2-3.4); Lymphocytes % (auto) 7.9 %; Mean Corpuscular Hemoglobin 30.5 pg (25.0-34.0); Mean Corpuscular Hgb Conc 33.7 g/dL (32.0-36.0); Mean Corpuscular Volume 90.7 fL (80.0-100.0); Mean Platelet Volume 11.4 fL (9.4-12.4); Monocytes # (auto) 0.83 K/uL (0.11-0.59); Neutrophils # (auto) 17.48 K/uL (1.40-6.50); Platelet Count 284 K/uL (130-400); RDW Coefficient of Variation 14.2 % (11.5-14.5); Red Blood Count 3.21 M/uL (4.20-5.40); White Blood Count 20.58 K/ul (4.8-10.8)
[2022-12-25 07:36] LABS: BUN Creatinine Ratio 18.5 (10-20); Creatinine Clr Calc Pharmacy 39.9 ml/min; Est GFR (African American) 57.7 ml/min; Est GFR (Non-African American) 49.8 ml/min; Potassium 3.9 mmol/L (3.5-5.1)
[2022-12-25 07:57] LABS: Partial Thromboplastin Ratio 1.5
[2022-12-25 08:01] LABS: Partial Thromboplastin Time 43.6 Seconds (21.0-31.0)
[2022-12-25] MEDS: INSULIN ASPART PER UNIT CHARGE SC SCH ×4 (08:07→21:58)
[2022-12-25] MEDS: CEFEPIME 2,000 MG in SYRINGE 0 ML IV SCH ×2 (08:14→20:53)
[2022-12-25] MEDS: LOSARTAN POTASSIUM 50 MG TAB PO SCH (08:15)
[2022-12-25] MEDS: CLOPIDOGREL BISULFATE 75 MG TAB PO SCH (08:15)
[2022-12-25] MEDS: SPIRONOLACTONE 25 MG TAB PO SCH ×2 (08:15→17:04)
[2022-12-25] MEDS: CHOLECALCIFEROL 1,000 UNITS 25 MCG TAB PO SCH (08:15)
[2022-12-25] MEDS: GABAPENTIN 100 MG CAP PO SCH ×2 (08:17→20:56)
[2022-12-25] MEDS: DOCUSATE SODIUM 100 MG CAP PO SCH (08:18)
[2022-12-25] MEDS: carvediloL 25 MG TAB PO SCH ×2 (08:47→17:05)
--- NOTE | 2022-12-25 10:58 | Surgery Progress Note ---
Date of Service December 25, 2022 Assessment & Plan (1) Gangrene due to arterial insufficiency: Plan: Pt has known hx of severe PAD in BLE, resulting in RLE BKA and remote hx of LLE distal SFA to peroneal art bypass. Underwent endovascular intervention yesterday, doing well post op. Foot/toes appear improved, pallor resolved. Demarcated dry gangrene remains. Will order RN to paint with betadine and consult podiatry. Admission and Anticipated Discharge Date Admission Date: December 20, 2022 Subjective 77 yo f POD #1 after LLE angio with intervention, seen inf/u today. Pt states less pain in foot/ankle. No problems with R groin puncture. No new complaints. Review of Systems Review of Systems: All systems reviewed & are unremarkable except as noted in HPI & below Physical Exam Constitutional: WD/WN, vitals as above cooperative; not in distress Cardiovascular: Vessels: femoral pulses present, posterior tibial pulses pr esent (RLE BKA, LLE good doppler) and radial pulses present; + abnormal peripheral pulses (LLE peroneal doppler) and + dorsalis pedis pulses abnormal (RLE BKA, LLE no dopplerable pulse) Skin: no rashes, warm and dry + eschar (L toes ventral surface) Psychiatric: Orientation: alert and oriented x 3 Results & Data Vital Signs (Past 12 Hours) Vital Signs Temp Pulse Pulse Resp BP Pulse Ox O2 Del Method 12/25/22 08:00 58 L 12/25/22 08:20 64 12/25/22 07:57 36.5 C 51 L 18 150/63 H 99 Room Air 12/25/22 03:15 36.3 C L 62 18 156/71 H 97 Room Air
--- NOTE | 2022-12-25 12:16 | Pharmacy Report ---
Pharmacy Glycemic Short Note 2 - Date of Service December 25, 2022 - Glycemic Short BSG Results (Last 24 hours): 12/24/22 12/24/22 12/25/22 15:46 19:49 06:33 Glucose 154 H POC Glucose 191 H 241 H 12/25/22 12/25/22 07:52 11:44 Glucose POC Glucose 132 H 181 H OUTPATIENT ANTIDIABETIC REGIMEN: * Lantus 15 units HS, lispro ASSESSMENT: 12/25/22 * Patient received total of 51 units of insulin yesterday, of which 17 units were NPH (to cover PO prednisone) and 17 units were basal insulin * Fasting BSG 154 mg/dL - continue with same basal insulin * No further steroids ordered, hold further NPH. May scale back slightly on CR at lunch time today as steroids likely worn off 12/24/22 * Patient's BSGs yesterday were [phone] mg/dL. Patient received prednisone 50 mg at 1800, 0200, and 1000. * Patient received NPH 25 units with 1800 dose and will receive 17 units today with 1000 dose. Patient NPO for angiogram. * Tighten Novolog slightly due to steroids. * Continue lantus as fastings well controlled when not received steroids. 12/23/22 * Patient's BSGs yesterday were [phone] mg/dL. Patient received 30 units of insulin (17 units of basal and 13 units of bolus). * Patient's BSGs today are 112 (fasting)-123 mg/dL. * Patient to start three doses of prednisone 50 mg today at [phone]. * With 1800 dose will add NPH 0.4 units/kg... this will be expected to cover 1800 and 0200 prednisone doses. * Continue current Lantus and Levemir BACKGROUND * Patient admitted with diabetic foot infection. Pharmacy consulted for glycemic management. Received home basal yesterday at HS. * Fasting BSG 108 mg/dl - plan to continue with same basal insulin. Will start stress of 2 for novolog this AM. PLAN FOR INPATIENT GLYCEMIC CONTROL: * Hold outpatient oral diabetes medications * Basal insulin * Lantus 17 units HS * Bolus insulin * NovoLog per scale ACHS or Q6hrs while NPO * Goal Range: Low 110 mg/dL - High 140 mg/dL * Correction Factor: 25 mg/dL/unit * Nutritional / Prandial insulin per carb ratio of 1 unit per 9 grams CHO consumed
[2022-12-25] MEDS ORDERED: hydrALAZINE HCL 20 MG/ML VIAL IV STA (12:21)
--- NOTE | 2022-12-25 12:51 | Podiatry Consultation ---
Date of Consultation December 25, 2022 Assessment & Plan (1) Gangrene due to arterial insufficiency: (2) Diabetic foot ulcer: Diabetic foot ulcer location: unspecified part of foot Laterality: left (3) Diabetes: Plan - Patient examined and evaluated. - Discussed need for future amputation, likely in the next week or two. Should wait until gangrene demarcates, though should be performed before infection develops - We will be out of town this week, from to Saturday. I discussed with patient that she may need more urgent care while I am gone and may need surgical intervention sooner, if worsening - Her likely outcome is an outpatient transmetatarsal amputation at the end of next week. We would see her in the office for pre-op discussion on Saturday of next week. - We discussed, at length, that if she remains inpatient for this gangrene or if she worsens at any point, she should not rely on my service, but a new physician/surgeon should be consulted for intervention. - Based on the stability of her gangrene, her foot should not alone keep her inpatient; she could be discharged home with rec. for xeroform and non- compressive kerlix dressings daily. Is already scheduled for outpatient follow- up with wound care on Saturday. - Will sign off for now, but follow-up on her outpatient or next Saturday, if still here, if we're needed. - Thank you for thinking of us for this consult. We're always happy to help and are rarely unavailable, but happen to be out the remainder of this week. History of Present Illness Reason for Consultation: Left forefoot gangrene Requesting Physician: Dr. Umana/Marzena Pastor Attending Physician: Demetrio Campos MD History of Present Illness Patient Is a 77-year-old female who is seen at bedside for consultation of a left forefoot gangrene. She has an extensive history of peripheral arterial disease and diabetic foot infections, leading to a right foot below knee amputation and this current acute left forefoot gangrene. She states that this has developed over a very short time and has been in wound care. Still, her left third through fifth toes are diffusely blackened which brought her to the hospital. Yesterday, she had a revascularization with Dr. Umana which has successfully brought new blood flow to the lower extremity. We were consulted to assess for what the next steps would be as well as for any timeline for surgical intervention. She denies any new or worsening signs or symptoms of infection. She states that she has decreasing pain since the revascularization yesterday. Further, she denies any recent medical history change otherwise. Allergies Allergy/AdvReac Type Severity Reaction Status Date / Time enflurane Allergy Severe NAUSEA, Verified 12/20/22 11:22 jaundiced Iodinated Contrast Media Allergy Intermediate HIVES - Verified 12/20/22 11:22 IVP DYE CHECO Inhibitors Allergy Mild hives Verified 12/20/22 11:22 nickel Allergy Mild REDNESS Verified 12/20/22 11:22 AND ITCHING liraglutide [From Victoza] AdvReac Mild SEVERE Verified 12/20/22 11:22 NAUSEA Home Medications Medication Instructions Recorded Confirmed Type blood sugar diagnostic (Contour #[id number] ea 08/08/20 12/05/22 Rx Test Strips) glucagon HCl 1 mg solution for 1 mg subcut Q20M PRN hypoglycemia 06/29/21 12/20/22 Rx injection (Glucagon (HCl) #1 ea Emergency Kit) albuterol sulfate 90 mcg/actuation 2 puff inhalation Q4H PRN 07/03/21 12/20/22 Rx aerosol inhaler shortness of breath or wheezing #18 grams insulin detemir U-100 100 unit/mL See Rx Instructions subcut QPM #4 07/05/21 12/20/22 Rx subcutaneous solution (Levemir vials U-100 Insulin) Prosthetic gel liners #2 ea 12/11/21 12/05/22 Rx Suspension sleeves #2 ea 12/11/21 12/05/22 Rx omeprazole 20 mg capsule,delayed 20 mg PO HS #90 caps 01/01/22 12/20/22 Rx release insulin lispro 100 unit/mL 1 sliding scale dose subcut 02/16/22 12/20/22 History subcutaneous solution (Humalog USEASDIRECTD U-100 Insulin) atorvastatin 80 mg tablet 80 mg PO QPM #90 tabs 02/23/22 12/20/22 Rx cholecalciferol (vitamin D3) 25 1,000 unit PO DAILY 06/19/22 12/20/22 History mcg (1,000 unit) capsule (Vitamin D3) losartan 100 mg tablet (Cozaar) 100 mg PO QAM 06/25/22 12/20/22 History clopidogrel 75 mg tablet (Plavix) 75 mg PO QAM #90 tabs 07/12/22 12/20/22 Rx levothyroxine 100 mcg tablet 100 mcg PO DAILY #90 tabs 09/17/22 12/20/22 Rx docusate sodium 100 mg capsule 100 mg PO DAILY 10/25/22 12/20/22 History (Dulcolax Stool Softener (docusate)) nifedipine 60 mg tablet,extended 60 mg PO HS #90 tabs 10/31/22 12/20/22 Rx release tramadol 50 mg tablet See Rx Instructions PO QID PRN 11/14/22 12/20/22 Rx pain #40 tabs R BKA prosthesis S88.111A #1 ea 11/27/22 12/05/22 Rx carvedilol 25 mg tablet (Coreg) 25 mg PO BID 11/28/22 12/20/22 History gabapentin 100 mg capsule 100 mg PO .COMPLEX #270 caps 12/05/22 12/20/22 Rx clindamycin HCl 300 mg capsule 300 mg PO QID 12/20/22 12/20/22 History mometasone-formoterol HFA 200 2 puff inhalation BID PRN Other 12/20/22 12/20/22 History mcg-5 mcg/actuation aerosol inhaler (Dulera) spironolactone 25 mg tablet 25 mg PO BID 12/20/22 12/20/22 History Patient History Medical History Anemia CHRONIC; BASELINE HGB STABLE AT 9-10 RANGE PER CHART REVIEW Asthma CONTROLLED/LAST USE OF INHALER "A LONG TIME AGO" Below-knee amputation of right lower extremity Cerebral aneurysm Chronic kidney disease STAGE III - FOLLOWS WITH NEPHRO- CREATINE USUALLY 1.3-1.5 Conductive hearing loss of right ear Constipation CREST syndrome Deep vein thrombosis RLE DVT DX'D 01/2018; CHRONIC-- ON XARELTO BID (PCP/VASCULAR MONITORING) Diabetes IDDM Diverticular disease GERD (gastroesophageal reflux disease) History of MRSA infection April 2017 (right foot - has since been amputated) --> no active infection. Hx of carotid stenosis BOTH SIDES - HAD LEFT CEA 2002 AND RIGHT CEA 1995 Hx of deep venous thrombosis 2017 R LE Hx of renal cell cancer R RENAL (2012) S/P R NEPHRECTOMY - NO RADIATION NO CHEMO Hyperkalemia Hyperlipidemia Hypertension Hypertensive urgency Hypothyroidism Occlusion and stenosis of carotid artery with cerebral infarction On anticoagulant therapy Osteoporosis Otalgia, left ear PAD (peripheral artery disease) Pressure ulcer of right foot, stage 2 Raynauds syndrome Renal artery stenosis RIGHT KIDNEY STENT ATTEMPTED 2010; S/P RIGHT NEPHRECTOMY 2012 Right lumbar radiculitis S/P angiogram of extremity left leg Scleroderma TMJ derangement Tympanic membrane perforation Vertigo Surgical History H/O carotid endarterectomy LEFT (2002), RIGHT (1995) H/O sinus surgery History of amputation of lesser toe of right foot MULTIPLE TOE AMPUTATIONS/I&D (ALL RT TOES) History of angioplasty MULTIPLE OF LE'S WITH STENTS TO LOWER EXTREMITIES PLACED History of appendectomy History of atherectomy LEFT (02/2017) History of cardiac cath 2011= NO STENTS ([facility]) History of carpal tunnel surgery RIGHT HAND, TRIGGER RIGHT FINGER History of cataract surgery RT/LEFT History of cholecystectomy History of colonoscopy History of endoscopic sinus surgery History of esophagogastroduodenoscopy (EGD) History of hysterectomy MERYL W/ BSO History of left breast biopsy 1997 History of nephrectomy RIGHT (2012) History of oophorectomy B/L OVARIES History of procedure for peripheral vascular disease LEFT POPLITEAL S/P PERONEAL ARTERY BYPASS 2012; RLE ANGIO WITH INTERVENTION 06/2017 History of tonsillectomy Hx of lumpectomy LEFT BREAST (BENIGN) Nausea and vomiting after administration of anesthetic agent S/P amputation right Below the knee amputation Family History Father Family hx of colon cancer Family history of diabetes mellitus Mother Lung cancer Stroke Unknown Rheumatoid arthritis Other No family history of adverse response to anesthesia No family history of bleeding disorder Social History Smoking Status: Never smoker Second Hand Exposure: No; Do You Dip or Chew Tobacco: No; Hx Alcohol Use: No Hx Substance Use: No Preferred Language: Burkinan Communication Ability: Effective Visual Impairment: No Limitations Hearing Ability: Normal Job Checker Required: No Beliefs That Will Affect Care: None marital status: Current Living Situation: Spouse current occupational status: retired How many Children do You have: 0 How many Children do You have Comment: able to assist with care as needed. Other Information That Helps Us Care for You: No Feels Safe at Home: Yes Safety Concerns: Feels Safe At This Time Diet: diabetic during the past year weight has: decreased > 10 lbs Seatbelt Use: always Do you think of yourself as: straight/heterosexual Gender Identity: Female Assistive Devices: Cane, Walker, Wheelchair and Other Review of Systems Review of Systems: All systems reviewed & are unremarkable except as noted in HPI & below Constitutional: no fever and no chills Eyes: no eye pain and no problem reported Ear, Nose, Mouth, Throat: no ear pain, no tinnitus, no nasal congestion and no nasal discharge Respiratory: no chest congestion, no pain on inspiration and no problem reported Cardiovascular: as per Subjective / HPI Gastrointestinal: no abdominal pain and no problem reported Genitourinary: no problem reported Musculoskeletal: + joint pain, + limited range of motion and + muscle weakness Integumentary: + new lesions, + non-healing lesions and + skin ulcer Neurologic: + localized weakness and + loss of sensation Psychiatric: no problem reported Physical Exam Physical Exam: Well-healed right below-knee amputation is appreciated. Vascular: DP/PT pulses faint dopplerable. Left lower extremity is warm distally. Dry gangrene is noted to the third through fifth digits with some local necrosis to the lateral aspect of the hallux as well. No evidence of ascending infection noted. No periwound drainage is noted. The third through fifth toes are diffusely hardened with crepitus on range of motion. Derm: again noted is the gangrenous changes to the forefoot. No acute open wound is appreciated. Skin is is diffusely thinned and advanced trophic changes are noted. MSK: Diffuse decrease in strength and range of motion is appreciated. No active range of motion is noted to the digits, specifically the third through fifth toes. Toes are contracted and a hammertoe deformity otherwise. Neuro: diffuse decrease in sensation is noted to the left foot. Touch sensation is decreased with pain sensation intact. No abnormal reflexes appreciated. Constitutional: WD/WN, vitals as above + ill appearing Eyes: PERRL, conjunctivae normal, anicteric sclerae ENMT: external ear and nose normal, oropharynx normal Neck: trachea midline, no thyromegaly Respiratory: normal respiratory effort, lungs clear to auscultation Cardiovascular: Rate/Rhythm: regular rate and regular rhythm Vessels: + abnormal peripheral pulses (Diminished, but improved after her recent procedure) Extremities: + pedal edema; + abnormal capillary refill (Absent capillary fill noted to the third through fifth toes) Gastrointestinal (Abdomen): normal bowel sounds, soft, nontender, no hepatosplenomegaly Musculoskeletal: Extremities: + limited ROM of extremities and + abnormal strength Acute necrosis noted to the Left forefoot, as previously stated.. Skin: + skin atrophy Neurologic: patellar DTR's 2+ bilat, sensation intact (Pain is intact with light touch diminished) Psychiatric: A+Ox3, euthymic affect Results & Data Vital Signs (Past 12 Hours) Vital Signs Temp Pulse Pulse Resp BP Pulse Ox O2 Del Method 12/25/22 11:49 36.5 C 58 L 18 176/68 H 97 Room Air 12/25/22 08:00 58 L 12/25/22 08:20 64 12/25/22 07:57 36.5 C 51 L 18 150/63 H 99 Room Air 12/25/22 03:15 36.3 C L 62 18 156/71 H 97 Room Air
--- NOTE | 2022-12-25 14:35 | Hospitalist Progress Note ---
Date of Service December 25, 2022 Assessment & Plan (1) Gangrene due to arterial insufficiency: Plan: Involving left third fourth and fifth toes. She underwent angioplasty procedure of the left anterior tibial artery on December 24, per Dr. Umana. She remains on a heparin drip. She also is on vancomycin and cefepime. Will await recommendations from vascular surgery and podiatry whether she will need systemic anticoagulation going forward (2) Diabetic foot ulcer: Plan: Local care. Currently on vancomycin and cefepime (3) PAD (peripheral artery disease): Plan: Known Hx severe PAD in bilateral LE, resulting in RLE BKA, and remote Hx of LLE distal SFA to peroneal artery bypass. Angioplasty procedure to left anterior tibial artery completed on December 24, per Dr. Umana (4) Diabetes: Plan: ADA diet. Sliding scale coverage as needed. Continue current medical management (5) Hypertension: Plan: Controlled. Continue current medical management Plan Anticipate eventual discharge to SNF. OT and PT assessments requested Admission and Anticipated Discharge Date Admission Date: December 20, 2022 Subjective Alert and oriented. No new symptoms. She remains on a heparin drip along with intravenous vancomycin and cefepime. Will await vascular surgery and/or podiatry recommendations regarding need for systemic anticoagulation. OT and PT assessments requested. IV hydralazine ordered as needed for elevated blood pressure. She is mildly bradycardic with heart rate 58 Review of Systems Review of Systems: Constitutional-no fever or chills ENT-no blurred vision, no double vision, no epistaxis, no sore throat Respiratory-no cough, no wheezing, no shortness of breath Cardiac-no palpitations, no chest pain, no syncope GI-no nausea, vomiting, diarrhea, melena, hematochezia -no urinary retention, no urinary incontinence, no dysuria, no hematuria Musculoskeletal-no joint pain, no muscle tenderness Skin-dry gangrenous changes of the distal aspects of the left third fourth and fifth toes Neuro-no isolated weakness, no paresthesia, no weakness Psych-no depression, no anxiety Physical Exam Physical Exam: General-alert and oriented x3, no fevers, no chills HEENT-head atraumatic and normocephalic, pupils equal and reactive to light, extraocular muscles intact Neck-no lymphadenopathy or thyromegaly, trachea midline Chest-clear to auscultation percussion. No rales wheezing or rhonchi Cardiac-regular rate and rhythm, normal S1 and S2 Abdomen-normal bowel sounds, nontender, no hepatosplenomegaly Extremities-dry gangrenous changes of the left third fourth and fifth toes Neuro-cranial nerves II through XII intact, motor and sensory function within normal limits, strength symmetrical , no focal deficits Psych-normal affect, normal mood Results & Data Results & Data Vital Signs (Past 12 Hours) Vital Signs Temp Pulse Pulse Pulse Resp BP Pulse Ox 12/25/22 13:05 71 159/68 H 12/25/22 11:49 36.5 C 58 L 18 176/68 H 97 12/25/22 08:00 58 L 12/25/22 08:20 64 12/25/22 07:57 36.5 C 51 L 18 150/63 H 99 12/25/22 03:15 36.3 C L 62 18 156/71 H 97 O2 Del Method 12/25/22 13:05 Room Air 12/25/22 11:49 Room Air 12/25/22 08:00 12/25/22 08:20 12/25/22 07:57 Room Air 12/25/22 03:15 Room Air Laboratory Results 12/25/22 06:33 12/25/22 06:33 PG Care Time/CCT Total # of Minutes Spent Total Time Spent with Patient: Total time spent is greater than 50% in coordination of care (as documented) at patient's floor/unit and/or counseling patient: Coding Level of Care Code 99617 SUB INP/OBS CARE 3/50MIN Diagnoses Gangrene due to arterial insufficiency I77.1; I96 Diabetic foot ulcer E11.621; L97.509 Diabetic foot ulcer location: unspecified part of foot Laterality: left PAD (peripheral artery disease) I73.9 Diabetes E11.9 Hypertension I10 (2) Diabetic foot ulcer Diabetic foot ulcer location: unspecified part of foot Laterality: left
[2022-12-25] MEDS: VANCOMYCIN HCL 1,000 MG in SODIUM CHLORIDE 0.9% 250 ML IV SCH (15:34)
[2022-12-25] MEDS ORDERED: hydrALAZINE HCL 20 MG/ML VIAL IV PRN (15:54)
[2022-12-25] MEDS: CARBOHYDRATES FOR HYPOGLYCEMIA PO PRN ×2 (20:20→20:49)
[2022-12-25] MEDS: ATORVASTATIN 40 MG TAB PO SCH (20:54)
[2022-12-25] MEDS: NIFEdipine EXTENDED REL 30 MG TABCR PO SCH (20:55)
[2022-12-25] MEDS: PANTOprazole 40 MG TAB PO SCH (20:55)
[2022-12-25] MEDS: HEPARIN SODIUM/DEXTROSE 25,000 UNITS/500 ML BAG IV SCH (23:53)
--- NOTE | 2022-12-25 23:59 | Communication Note ---
Date of Service: December 25, 2022 I received a message approximately 11:40 PM stating that the patient was experiencing chest pressure when she got up to use the bathroom. After going into bed, she did not experience relief from the symptoms. Rating it a 4-5 out of 10 as pressure and not pain. Seems to be retrosternal. Not experiencing shortness of breath or radiation. Patient has never had a heart attack or stroke previously. Patient does not smoke. She has never had symptoms like this before which is why she was concerned. An EKG was taken prior to my arrival showing sinus bradycardia without ST abnormalities. Patient was also given 10 mg of hydralazine per order set instructions for systolic blood pressure greater than 180. Patient is on heparin drip currently. Physical exam overall benign but patient does experiencing pressure/pain when palpating the epigastrium. No worsening of retrosternal pressure when palpating the sternum itself or insertion sites of the ribs at the sternum. Lungs clear to auscultation. Patient in no acute distress and appears calm. Nondiaphoretic. Plan: Very low likelihood of OK given patient on heparin drip. Could potentially be angina or GERD related. Even with low likelihood of OK, will order high-sensitivity troponin given that the chest discomfort did not go away with rest. If negative will order a 2-hour recheck.
[2022-12-26] MEDS ORDERED: INSULIN ASPART PER UNIT CHARGE SC SCH (02:00)
[2022-12-26 04:27] LABS: Basophils # (auto) 0.02 K/uL (0-0.2); Basophils % (auto) 0.2 %; Eosinophils # (auto) 0.06 K/uL (0-0.50); Eosinophils % (auto) 0.5 %; Hematocrit (blood only) 27.2 % (37.0-47.0); Hemoglobin 8.9 g/dl (12.0-16.0); Immature Granulocytes # (auto) 0.53 K/uL (0.01-0.20); Immature Granulocytes % (auto) 4.2 %; Lymphocytes # (auto) 3.28 K/uL (1.2-3.4); Mean Corpuscular Hemoglobin 30.4 pg (25.0-34.0); Mean Corpuscular Hgb Conc 32.7 g/dL (32.0-36.0); Mean Corpuscular Volume 92.8 fL (80.0-100.0); Mean Platelet Volume 11.7 fL (9.4-12.4); Monocytes # (auto) 0.87 K/uL (0.11-0.59); Monocytes % (auto) 6.9 %; Neutrophils # (auto) 7.87 K/uL (1.40-6.50); Neutrophils % (auto) 62.2 %; Nucleated RBC # (auto) 0.02 K/uL (0-0.12); Nucleated RBC % (auto) 0.2 %; Platelet Count 241 K/uL (130-400); RDW Coefficient of Variation 14.6 % (11.5-14.5); RDW Standard Deviation 49.4 fL (36.4-46.3); Red Blood Count 2.93 M/uL (4.20-5.40); White Blood Count 12.63 K/ul (4.8-10.8)
[2022-12-26 04:29] LABS: BUN Creatinine Ratio 19.7 (10-20); Calcium 8.5 mg/dl (8.6-10.3); Creatinine Clr Calc Pharmacy 36.8 ml/min; Est GFR (African American) 52.4 ml/min; Est GFR (Non-African American) 45.2 ml/min; Potassium 3.4 mmol/L (3.5-5.1)
[2022-12-26 05:03] LABS: Partial Thromboplastin Ratio 1.6
[2022-12-26 05:11] LABS: Partial Thromboplastin Time 44.7 Seconds (21.0-31.0)
[2022-12-26] MEDS: LEVOTHYROXINE SODIUM 100 MCG TABLET PO SCH (06:05)
[2022-12-26] MEDS: carvediloL 25 MG TAB PO SCH (08:29)
[2022-12-26] MEDS: CLOPIDOGREL BISULFATE 75 MG TAB PO SCH (08:30)
[2022-12-26] MEDS: CEFEPIME 2,000 MG in SYRINGE 0 ML IV SCH (08:30)
[2022-12-26] MEDS: CHOLECALCIFEROL 1,000 UNITS 25 MCG TAB PO SCH (08:30)
[2022-12-26] MEDS: SPIRONOLACTONE 25 MG TAB PO SCH (08:30)
[2022-12-26] MEDS: GABAPENTIN 100 MG CAP PO SCH (08:30)
[2022-12-26] MEDS: LOSARTAN POTASSIUM 50 MG TAB PO SCH (08:31)
[2022-12-26] MEDS: DOCUSATE SODIUM 100 MG CAP PO SCH (08:31)
--- NOTE | 2022-12-26 09:14 | Electrocardiogram Report ---
Test Reason : Blood Pressure : / mmHG Vent. Rate : 056 BPM Atrial Rate : 056 BPM P-R Int : 154 ms QRS Dur : 084 ms QT Int : 436 ms P-R-T Axes : 009 007 049 degrees QTc Int : 420 ms Sinus bradycardia with Premature atrial complexes Prominent U waves(consider hypokalemia,drug effect, etc.) Abnormal ECG When compared with ECG of 20-DEC-2022 12:43, Premature atrial complexes are now Present U waves now present Confirmed by Ryan Muñoz ([id number]) on 12/26/2022 9:13:48 AM Referred By: Agustín Jarvis Confirmed By:Ryan Muñoz
[2022-12-26] MEDS: INSULIN ASPART PER UNIT CHARGE SC SCH ×2 (09:17→12:37)
--- NOTE | 2022-12-26 11:14 | Discharge Summary ---
Date of Service December 26, 2022 Admission HPI Per Admitting Provider Trista Almaraz is a 77-year-old female with a past medical history of rainouts, crest syndrome, renal cell carcinoma, osteomyelitis with severe PAD and prior BKA right, diabetic ulcers, and lower extremity wounds seen 11/04/2022 who presents to the ER with worsened left foot and leg pain and was referred from wound care center. Has had 3 weeks of worsening left great toe and third/fourth/fifth toe wounds without fever or chills but with drainage. She is on Plavix. Per wound care note review was concerned about deterioration of the foot and with concern for limb threatening arterial insufficiency and was recommended to present to the ER. Last arterial ultrasound 75-99% stenosis of peroneal artery outflow just distal to her prior anastomosis which was stable compared to 2022 She is seen at the bedside. She reports about 3 weeks ago she had progressive worsening and pain in her left toes and redness which has spread to the midfoot. She reports this is continued to worsen, redness did get a little better with clindamycin but otherwise has continued to have worsening pain and wounds of her left lower extremity. Has had some intermittent fevers and chills. Denies chest pain, chest pressure, shortness of breath, difficulty breathing at any point. She does not use tobacco products or alcohol. She does not have any proximal limb pain. No abdominal pain. No nausea/vomiting. Medical History: Reviewed Medications: Reviewed Surgical History: Reviewed Family history: Reviewed Allergies: Reviewed Social History: Reviewed Code Status: Full Principal Diagnosis Peripheral vascular insufficiency left lower leg with dry gangrene of the left third, fourth, fifth toes Discharge Exam General-alert and oriented x3, no fevers, no chills HEENT-head atraumatic and normocephalic, pupils equal and reactive to light, extraocular muscles intact Neck-no lymphadenopathy or thyromegaly, trachea midline Chest-clear to auscultation percussion. No rales wheezing or rhonchi Cardiac-regular rate and rhythm, normal S1 and S2 Abdomen-normal bowel sounds, nontender, no hepatosplenomegaly Extremities-dry gangrenous changes of the distal aspects of the left third, fourth and fifth toes Neuro-cranial nerves II through XII intact, motor and sensory function within normal limits, strength symmetrical , no focal deficits Psych-normal affect, normal mood Discharge Data Allergies Allergy/AdvReac Type Severity Reaction Status Date / Time enflurane Allergy Severe NAUSEA, Verified 12/20/22 11:22 jaundiced Iodinated Contrast Media Allergy Intermediate HIVES - Verified 12/20/22 11:22 IVP DYE CHECO Inhibitors Allergy Mild hives Verified 12/20/22 11:22 nickel Allergy Mild REDNESS Verified 12/20/22 11:22 AND ITCHING liraglutide [From Victoza] AdvReac Mild SEVERE Verified 12/20/22 11:22 NAUSEA Consultations 12/20/22 17:27 ED Decision to Admit Stat 12/20/22 22:36 Consult Vascular Surgery Routine 12/25/22 10:53 Consult Podiatry Routine Procedures Performed Operation Date: 12/24/22 09:50 Actual Procedures p Left Lower Extremity Angiogram, Interior Tibial Artery, Ultrasound Localization of Right Femoral Artery, Moderate Sedation [id number](Right) - Wesley Umana MD Ordered Studies 12/20/22 13:29 US arterial duplex LE LT Stat US venous doppler LE LT Stat 12/24/22 07:11 EV angio LE LT Routine Hospital Course (1) Gangrene due to arterial insufficiency: Dry gangrenous changes involving distal left third, fourth and fifth toes. She underwent angioplasty procedure of the left anterior tibial artery on December 24, per Dr. Umana. Treated while hospitalized with heparin drip. She will continue Plavix at discharge. She was also treated with intravenous vancomycin and cefepime. Home on Augmentin. (2) Diabetic foot ulcer: Local care. Treated while hospitalized with vancomycin and cefepime. Home on Augmentin (3) PAD (peripheral artery disease): Known Hx severe PAD in bilateral LE, resulting in RLE BKA, and remote Hx of LLE distal SFA to peroneal artery bypass. Angioplasty procedure to left anterior tibial artery completed on December 24, per Dr. Umana (4) Diabetes: ADA diet. Sliding scale coverage as needed. Continue current medical management (5) Hypertension: Controlled. Continue current medical management Plan Home today, December 26 Total Time Total Time Spent Total Time Spent (In Minutes): 45 minutes Discharge Plan Discharge Items Patient Disposition: Home - Home Health Services Reason For Visit: ARTERIAL INSUFFICIENCY, CELLULITIS Discharge Diagnosis: Peripheral vascular insufficiency left lower extremity with dry gangrene of the distal aspects of the left third, fourth, and fifth toes Condition on Discharge: Good Activity: Per Instructions section Activity Comment: Weightbearing as tolerated left foot Non-emergency contact: Primary Care Provider and Surgeon Call non-emergency contact if: you have any medication questions and your sy mptoms worsen Follow-up/Referrals: Agustín Jarvis MD [Primary Care Provider] - Diet: Carb Consistent or DM2 and Heart Healthy Addtl Attending Provider Instructions: Take Augmentin at discharge as directed. Follow-up with auth specialist in 7 to 10 days to discuss planning for further left foot surgery Pending Studies at Discharge: No Stand-Alone Forms: My [facility] [employer], Smoking Cessation Medications and DC Order Prescriptions: New amoxicillin-pot clavulanate 875-125 mg tablet 1 tab PO BID Qty: 20 0RF Continued carvedilol [Coreg] 25 mg tablet 25 mg PO BID clindamycin HCl 300 mg capsule 300 mg PO QID (DME) Contour Test Strips Strip See Rx Instructions .ROUTE .MEDSUPPLY Qty: 270 3RF Rx Instructions: check 3 times daily E11.9 Glucagon (HCl) Emergency Kit 1 mg recon soln 1 mg subcut Q20M PRN (Reason: hypoglycemia) Qty: 1 0RF Rx Instructions: until target blood sugar attained albuterol sulfate 90 mcg/actuation HFA aerosol inhaler 2 puff inhalation Q4H PRN (Reason: shortness of breath or wheezing) Qty: 18 3RF Patient Comments: AT LEAST A YR AGO, LAST USE (DME) Prosthetic gel liners See Rx Instructions .Route .MEDSUPPLY Qty: 2 11RF Rx Instructions: As directed (DME) Suspension sleeves See Rx Instructions .Route .MEDSUPPLY Qty: 2 11RF Rx Instructions: As directed omeprazole 20 mg capsule,delayed release(DR/EC) 20 mg PO HS Qty: 90 3RF atorvastatin 80 mg tablet 80 mg PO QPM Qty: 90 3RF clopidogrel [Plavix] 75 mg tablet 75 mg PO QAM Qty: 90 3RF levothyroxine 100 mcg tablet 100 mcg PO DAILY Qty: 90 3RF nifedipine 60 mg tablet extended release 60 mg PO HS Qty: 90 3RF (DME) R BKA prosthesis S88.111A See Rx Instructions .Route .MEDSUPPLY Qty: 1 0RF Rx Instructions: As directed tramadol 50 mg tablet See Rx Instructions PO QID PRN (Reason: pain) Qty: 40 0RF Rx Instructions: 1-2 tab orally four times daily PRN; docusate sodium [Dulcolax Stool Softener (dss)] 100 mg capsule 100 mg PO DAILY gabapentin 100 mg capsule 100 mg PO .COMPLEX Qty: 270 3RF Rx Instructions: 100 mg orally 1 in am and 2 in pm; Levemir U-100 Insulin 100 unit/mL solution See Rx Instructions SQ QPM Qty: 4 3RF Rx Instructions: 15 units, at bedtime. insulin lispro [Humalog U-100 Insulin] 100 unit/mL Solution 1 sliding scale dose SUBCUT USEASDIRECTD cholecalciferol (vitamin D3) [Vitamin D3] 25 mcg (1,000 unit) capsule 1,000 unit PO DAILY losartan [Cozaar] 100 mg tablet 100 mg PO QAM spironolactone 25 mg tablet 25 mg PO BID Dulera 200-5 mcg/actuation HFA aerosol inhaler 2 puff inhalation BID PRN (Reason: Other) Discharge Orders: Discharge Order (Routine); Ordered 12/26/22 Ordered By: Demetrio Campos Admission Data Admit Date/Time: 12/20/22 17:52 Attending Provider: Demetrio Campos Admit Provider: Gustavo Henriquez Primary Care Provider: Agustín Jarvis Other Providers: Hesham Mcclellan ; Gustavo Henriquez ; Wesley Umana ; Natalio Balderas Coding Level of Care Code 26487 INP/OBS DISCH >30 MIN Diagnoses Gangrene due to arterial insufficiency I77.1; I96 Diabetic foot ulcer E11.621; L97.509 Diabetic foot ulcer location: unspecified part of foot Laterality: left PAD (peripheral artery disease) I73.9 Diabetes E11.9 Hypertension I10
[2022-12-26] MEDS: ACETAMINOPHEN 325 MG TAB PO PRN (16:08)
[2022-12-26] MEDS ORDERED: LANTUS PER UNIT CHARGE SQ SCH (21:00)
== END 2022-12-26 16:49 | disposition home health service (06) | DRG 299 ==
LOC: ED 12:08 → SUATTDRO 17:52 → EDINP 17:52 → 2S 22:38

== ENCOUNTER 2023-01-30 07:57 | Observation (INO) ==
--- NOTE | 2023-01-30 08:08 | Emergency Department Note ---
History of Present Illness General Chief complaint: Laceration/Cut (Non-Suture) Stated complaint: SURGERY ON FOOT AND THE INCISION POPED OPEN Time Seen by Provider: 01/30/23 08:06 History of Present Illness This is a 77-year-old female that presents to the emergency department via private vehicle with complaints of "surgery on foot and the incision opened". Per review of the EMR, patient underwent left heel ulcer debridement as well as left foot transmetatarsal amputation on 01/09/2023 secondary to left foot gangrene and left heel ulceration. Patient notes wound dehisced and was resutured in the outpatient office on the of this month. Sutures were removed yesterday. She notes that she was doing well and around 3:30 AM while in her wheelchair the wound reopened. She presents to us today for further evaluation and management. She does have associated nausea. No fevers. No pain. Home Medications Medication Instructions Recorded Confirmed Type blood sugar diagnostic (Contour #[id number] ea 08/08/20 01/30/23 Rx Test Strips) glucagon HCl 1 mg solution for 1 mg subcut Q20M PRN hypoglycemia 06/29/21 01/30/23 Rx injection (Glucagon (HCl) #1 ea Emergency Kit) insulin detemir U-100 100 unit/mL See Rx Instructions subcut QPM #4 07/05/21 01/30/23 Rx subcutaneous solution (Levemir vials U-100 Insulin) Prosthetic gel liners #2 ea 12/11/21 01/30/23 Rx Suspension sleeves #2 ea 12/11/21 01/30/23 Rx insulin lispro 100 unit/mL 1 sliding scale dose subcut 02/16/22 01/30/23 History subcutaneous solution (Humalog USEASDIRECTD U-100 Insulin) atorvastatin 80 mg tablet 80 mg PO QPM #90 tabs 02/23/22 01/30/23 Rx cholecalciferol (vitamin D3) 25 1,000 unit PO HS 06/19/22 01/30/23 History mcg (1,000 unit) capsule (Vitamin D3) clopidogrel 75 mg tablet (Plavix) 75 mg PO QAM #90 tabs 07/12/22 01/30/23 Rx docusate sodium 100 mg capsule 100 mg PO DAILY 10/25/22 01/30/23 History (Dulcolax Stool Softener (docusate)) nifedipine 60 mg tablet,extended 60 mg PO HS #90 tabs 10/31/22 01/30/23 Rx release R BKA prosthesis S88.111A #1 ea 11/27/22 01/30/23 Rx mometasone-formoterol HFA 200 2 puff inhalation BID PRN 12/20/22 01/30/23 History mcg-5 mcg/actuation aerosol Shortness Of Breath inhaler (Dulera) spironolactone 25 mg tablet See Rx Instructions .Route .COMPLEX 12/20/22 01/30/23 History ferrous gluconate 324 mg (37.5 mg 324 mg PO DAILY #30 tabs 01/03/23 01/30/23 Rx iron) tablet carvedilol 25 mg tablet (Coreg) 25 mg PO BID #180 tabs 01/23/23 01/30/23 Rx levothyroxine 100 mcg tablet 100 mcg PO DAILY #90 tabs 01/23/23 01/30/23 Rx losartan 100 mg tablet (Cozaar) 100 mg PO QAM #90 tabs 01/23/23 01/30/23 Rx omeprazole 20 mg capsule,delayed 20 mg PO HS #90 caps 01/23/23 01/30/23 Rx release sertraline 50 mg tablet See Rx Instructions .Route .COMPLEX 01/30/23 01/30/23 History Allergies Allergy/AdvReac Type Severity Reaction Status Date / Time enflurane Allergy Severe NAUSEA, Verified 01/23/23 11:07 jaundiced Iodinated Contrast Media Allergy Intermediate HIVES - Verified 01/23/23 11:07 IVP DYE CHECO Inhibitors Allergy Mild hives Verified 01/23/23 11:07 nickel Allergy Mild REDNESS Verified 01/23/23 11:07 AND ITCHING liraglutide [From Victoza] AdvReac Mild SEVERE Verified 01/23/23 11:07 NAUSEA Past Med/Surg History Medical History Anemia CHRONIC; BASELINE HGB STABLE AT 9-10 RANGE PER CHART REVIEW Asthma CONTROLLED/LAST USE OF INHALER "A LONG TIME AGO" Below-knee amputation of right lower extremity Carotid artery stenosis S/P LEFT (2002), RIGHT (1995) Cerebral aneurysm Chronic kidney disease STAGE III - FOLLOWS WITH NEPHRO- CREATINE USUALLY 1.3-1.5 Conductive hearing loss of right ear Constipation CREST syndrome Deep vein thrombosis RLE DVT DX'D 01/2018; CHRONIC-- ON XARELTO BID (PCP/VASCULAR MONITORING) Diabetes IDDM Diabetic foot ulcer Diverticular disease Gangrene due to arterial insufficiency left foot GERD (gastroesophageal reflux disease) History of COVID-19 12/20/22 [facility] - no symptoms History of MRSA infection April 2017 (right foot - has since been amputated) --> no active inf ection. Hx of carotid stenosis BOTH SIDES - HAD LEFT CEA 2002 AND RIGHT CEA 1995 Hx of deep venous thrombosis 2018 R LE Hx of renal cell cancer R RENAL (2012) S/P R NEPHRECTOMY - NO RADIATION NO CHEMO Hyperkalemia Hyperlipidemia Hypertension Hypertensive urgency Hypothyroidism Left carpal tunnel syndrome Occlusion and stenosis of carotid artery with cerebral infarction On anticoagulant therapy Osteoporosis Otalgia, left ear PAD (peripheral artery disease) Pressure ulcer of right foot, stage 2 Raynauds syndrome Renal artery stenosis RIGHT KIDNEY STENT ATTEMPTED 2010; S/P RIGHT NEPHRECTOMY 2012 Right lumbar radiculitis S/P angiogram of extremity left leg Scleroderma TMJ derangement Tympanic membrane perforation Vertigo Surgical History H/O carotid endarterectomy LEFT (2002), RIGHT (1995) H/O sinus surgery History of amputation of lesser toe of right foot MULTIPLE TOE AMPUTATIONS/I&D (ALL RT TOES) History of angioplasty MULTIPLE OF LE'S WITH STENTS TO LOWER EXTREMITIES PLACED History of appendectomy History of atherectomy LEFT (02/2017) History of cardiac cath 2011= NO STENTS ([facility] [place]) History of carpal tunnel surgery RIGHT HAND, TRIGGER RIGHT FINGER History of cataract surgery RT/LEFT History of cholecystectomy History of colonoscopy History of endoscopic sinus surgery History of esophagogastroduodenoscopy (EGD) History of hysterectomy MERYL W/ BSO History of left breast biopsy 1997 History of nephrectomy RIGHT (2012) History of oophorectomy B/L OVARIES History of procedure for peripheral vascular disease LEFT POPLITEAL S/P PERONEAL ARTERY BYPASS 2012; RLE ANGIO WITH INTERVENTION 06/2017 History of tonsillectomy Hx of lumpectomy LEFT BREAST (BENIGN) Nausea and vomiting after administration of anesthetic agent S/P amputation right Below the knee amputation Family History Father Family hx of colon cancer Family history of diabetes mellitus Mother Lung cancer Stroke Unknown Rheumatoid arthritis Other No family history of adverse response to anesthesia No family history of bleeding disorder Social History Smoking Status: Never smoker Second Hand Exposure: No; Do You Dip or Chew Tobacco: No; Hx Alcohol Use: No Hx Substance Use: No Preferred Language: Pashto Communication Ability: Effective Visual Impairment: No Limitations Hearing Ability: Normal [employer] Required: No Beliefs That Will Affect Care: None marital status: Current Living Situation: Spouse current occupational status: retired How many Children do You have: 0 How many Children do You have Comment: able to assist with care as needed. Feels Safe at Home: Yes Diet: diabetic during the past year weight has: decreased > 10 lbs Seatbelt Use: always Do you think of yourself as: straight/heterosexual Gender Identity: Female Assistive Devices: Cane, Glasses and Wheelchair Review of Systems A total of 10 systems reviewed and were otherwise negative Physical Exam Vital Signs Vital Signs - 24 hr 01/30/23 08:03 01/30/23 09:11 01/30/23 09:24 Temperature 36.6 C Temperature Source Temporal Artery Scan Pulse Rate 95 H 57 L Pulse Rate [Apical] 59 L Pulse Rhythm [Apical] Regular Respiratory Rate 20 18 Respiratory Effort / Characteristics Non-Labored Respiratory Depth Normal Normal Blood Pressure 161/76 H Blood Pressure [Left Arm] 197/79 H Blood Pressure Mean 104 Blood Pressure Mean [Left Arm] 118 Pulse Oximetry 100 99 Oxygen Delivery Method Room Air Room Air Sepsis Recent Fever Within 48 Hours No Sepsis New/Unexplained Change in Mental Status N/A Sepsis Action Taken by Nursing No Action Required VITAL SIGNS - Vital signs and nursing notes were reviewed. Hypertensive, otherwise stable. GENERAL -77-year-old female appearing her stated age who is in no acute distress. Communicates well with provider and answers questions appropriately. SKIN -overlying the left lower extremity there is evidence of transmetatarsal amputation distally with overlying soft tissue flap. Flap has dehisced overlying the dorsal aspect over the entire length. Wound is open approximately 1 cm with 1 cm depth. There is a small amount of bleeding noted. No odor to t he wound. No drainage. HEAD - NC/AT. EYES - Sclera anicteric. NECK - No nuchal rigidity. LUNGS -clear to auscultation. CARDIAC - RRR EXTREMITIES -skin as above. The left lower extremity is appropriately warm without evidence of acute neurovascular deficit. +5/5 strength noted in UE/LE bilaterally. PSYCH -patient is alert and oriented. Course Administered Medications Enoxaparin Sodium (Enoxaparin Inj 40 Mg/0.4 Ml Syr) 40 mg SQ Q24H ANANTH Stop: 03/01/23 15:59 Last Admin: 01/30/23 19:43 Dose: 40 mg Documented By: WILMAN Hydralazine HCl (Hydralazine Hcl 20 Mg/Ml Vial) 10 mg IV Q4H PRN PRN Reason: sBP > 180 Stop: 03/01/23 15:35 Last Admin: 01/30/23 16:06 Dose: 10 mg Documented By: BRENDA Insulin Aspart (Insulin Aspart Per Unit Charge) 0 units SC ACHS ANANTH Stop: 03/01/23 16:29 Last Admin: 01/30/23 18:01 Dose: 2 units Documented By: [facility] Co-signed By: KENISHA Medical Decision Making Laboratory Data 01/30/23 09:13 01/30/23 09:13 Lab Results 01/30/23 01/30/23 01/30/23 Range/Units 09:13 09:13 09:13 WBC 7.13 (4.8-10.8) K/ul RBC 3.43 L (4.20-5.40) M/uL Hgb 10.2 L (12.0-16.0) g/dl Hct 31.4 L (37.0-47.0) % MCV 91.5 (80.0-100.0) fL MCH 29.7 (25.0-34.0) pg MCHC 32.5 (32.0-36.0) g/dL RDW Std Deviation 45.3 (36.4-46.3) fL RDW Coeff of Pepper 13.5 (11.5-14.5) % Plt Count 275 (130-400) K/uL MPV 10.5 (9.4-12.4) fL Immature Gran % (Auto) 0.4 % Neut % (Auto) 64.5 % Lymph % (Auto) 26.6 % [place] % (Auto) 7.0 % Eos % (Auto) 1.4 % Baso % (Auto) 0.1 % Neut # (Auto) 4.59 (1.40-6.50) K/uL Lymph # (Auto) 1.90 (1.20-3.40) K/uL [place] # (Auto) 0.50 (0.11-0.59) K/uL Eos # (Auto) 0.10 (0.00-0.50) K/uL Baso # (Auto) 0.01 (0.00-0.20) K/uL Immature Gran # (Auto) 0.03 (0.01-0.20) K/uL Sodium 139 (136-145) mmol/L Potassium 3.9 (3.5-5.1) mmol/L Chloride 105 (98-107) mmol/L Carbon Dioxide 26 (21-32) mmol/L Anion Gap 8 (3-11) BUN 16 (6-23) mg/dl Creatinine 0.89 (0.6-1.2) mg/dl Est Cr Clr Drug Dosing Not Reportable Est GFR ( Amer) 73.0 ml/min Est GFR (Non-Af Amer) 63.0 ml/min BUN/Creatinine Ratio 18.0 (10-20) Glucose 52 L* (70-99(Fasting)) mg/dl POC Glucose (70-99) mg/dl Calcium 9.4 (8.6-10.3) mg/dl Total Bilirubin 0.5 (0.2-1.0) mg/dl AST 12 L (13-39) U/L ALT 7 (7-52) U/L Alkaline Phosphatase 117 H (34-104) U/L Total Protein 6.9 (6.0-8.3) gm/dl Albumin 3.9 (3.4-5.0) gm/dl Globulin 3.0 (2.5-4.0) gm/dl Albumin/Globulin Ratio 1.3 (0.9-2) Procalcitonin < 0.05 (0-0.5) ng/ml 01/30/23 01/30/23 Range/Units 09:35 10:07 WBC (4.8-10.8) K/ul RBC (4.20-5.40) M/uL Hgb (12.0-16.0) g/dl Hct (37.0-47.0) % MCV (80.0-100.0) fL MCH (25.0-34.0) pg MCHC (32.0-36.0) g/dL RDW Std Deviation (36.4-46.3) fL RDW Coeff of Pepper (11.5-14.5) % Plt Count (130-400) K/uL MPV (9.4-12.4) fL Immature Gran % (Auto) % Neut % (Auto) % Lymph % (Auto) % [place] % (Auto) % Eos % (Auto) % Baso % (Auto) % Neut # (Auto) (1.40-6.50) K/uL Lymph # (Auto) (1.20-3.40) K/uL [place] # (Auto) (0.11-0.59) K/uL Eos # (Auto) (0.00-0.50) K/uL Baso # (Auto) (0.00-0.20) K/uL Immature Gran # (Auto) (0.01-0.20) K/uL Sodium (136-145) mmol/L Potassium (3.5-5.1) mmol/L Chloride (98-107) mmol/L Carbon Dioxide (21-32) mmol/L Anion Gap (3-11) BUN (6-23) mg/dl Creatinine (0.6-1.2) mg/dl Est Cr Clr Drug Dosing Est GFR ( Amer) ml/min Est GFR (Non-Af Amer) ml/min BUN/Creatinine Ratio (10-20) Glucose (70-99(Fasting)) mg/dl POC Glucose 55 L* 97 (70-99) mg/dl Calcium (8.6-10.3) mg/dl Total Bilirubin (0.2-1.0) mg/dl AST (13-39) U/L ALT (7-52) U/L Alkaline Phosphatase (34-104) U/L Total Protein (6.0-8.3) gm/dl Albumin (3.4-5.0) gm/dl Globulin (2.5-4.0) gm/dl Albumin/Globulin Ratio (0.9-2) Procalcitonin (0-0.5) ng/ml Imaging Data Radiologist's Impression: Duplex Scan Lower Extremity Artery 01/30/23 11:42 LEFT LOWER EXTREMITY ARTERIAL DOPPLER ULTRASOUND CLINICAL HISTORY: Left calf pain. COMPARISON STUDY: Left lower extremity arterial Doppler ultrasound December 20, 2022. TECHNIQUE: Color and duplex Doppler sonography of the arterial system of the left lower extremity was performed. FINDINGS: There is extensive atherosclerotic plaque within the left lower extremity. There is biphasic flow within left common femoral and proximal superficial femoral arteries. There is a patent bypass graft which extends from the distal left superficial femoral artery to a calf vessel. The point lay ira distal left superficial femoral and popliteal arteries are occluded, as before. The left posterior tibial artery is occluded. There is significantly dampened, monophasic flow within the left anterior tibial artery, similar to prior exam. There is also dampened, monophasic flow within the dorsalis pedis. Portions of the dorsalis pedis appears occluded. There is monophasic flow within the left peroneal artery. This was not confidently identified on prior exam. IMPRESSION: 1. Extensive atherosclerotic plaque within the left lower extremity. 2. Patent bypass grafting the distal left superficial femoral artery to a calf vessel. 3. Occluded point lay ira left superficial femoral and popliteal arteries, unchanged. 4. Significantly diminished flow within the left calf vessels, as detailed above. Occluded left posterior tibial artery with dampened monophasic flow within the remainder of the calf vessels. Minimal change since prior ultrasound. ACT 112: Negative or not required by law. Electronically signed by: Wing Coughlin M.D. 01/30/2023 1:45 PM MDM Narrative Patient was seen and evaluated as above in room A09. Review was performed of triage nursing notes and vital signs. I did review pertinent previous visits and patient history. After obtaining a thorough history and physical examination the above work up was performed. Patient presents to us today for evaluation of wound dehiscence status post left ear ulcer debridement and left transmetatarsal amputation. Patient overall well-appearing and nontoxic. She does note some nausea which is new. Options of care were discussed with the patient. I obtain consent and also sent pictures of the wound to the patient's surgeon, Dr. Balderas. At this time we a gree with culture of the wound, Betadine wet-to-dry dressings followed by blood work and assessment looking for infection. If there is concern for infection we will proceed with inpatient management and if overall well may be discharged home to closely follow-up in the outpatient setting in his office as well as see wound care. IV access was established. Labs were drawn. There is no leukocytosis. Anemia noted with hemoglobin of 10.2. This is stable compared to previous. Hypoglycemic but recheck here appropriately after some juice. Procalcitonin normal. Blood cultures pending. Wound culture pending. I discussed further options with the patient and at bedside. At this time noting the patient's underlying comorbidities, wound dehiscence we will proceed with inpatient management. Although there is no definitive evidence of infection noting the patient's afebrile state, normal white blood cell count, negative procalcitonin, careful trending of the cultures and patient clinical status will be needed. Case discussed with the hospitalist service. Please refer to further documentation regarding her stay. In the evaluation and treatment of this patient the following differential diagnoses were entertained: Cellulitis, abscess, wound dehiscence, among others. Impression & Plan Dehiscence of amputation stump of left lower extremity Discharge Plan Visit Data Chief Complaint: Laceration/Cut (Non-Suture) Stated Complaint: SURGERY ON FOOT AND THE INCISION POPED OPEN ED Provider: Cornel Sinha ED Midlevel Provider: Gabriele Cintron Discharge Problem: Dehiscence of amputation stump of left lower extremity Patient Disposition: Admitted As Inpatient Condition: Good Discharge Instructions Interventions: ED Discharge Assessment Last Done: 01/30/23 14:22
--- NOTE | 2023-01-30 09:29 | Emergency Department Note ---
ED Visit Note Physician Evaluation Note: I have personally evaluated and examined this patient. I agree with assessment and plan of Gabriele Cintron PA-C. Patient independently examined. She is in no distress declines needing anything at this time. Patient with left foot surgery recently that wound has dehisced. Surgeon is involved in care and patient does not appear septic at this time. Cornel Sinha MD
[2023-01-30 09:38] LABS: Basophils # (auto) 0.01 K/uL (0.00-0.20); Basophils % (auto) 0.1 %; Eosinophils % (auto) 1.4 %; Hematocrit (blood only) 31.4 % (37.0-47.0); Hemoglobin 10.2 g/dl (12.0-16.0); Immature Granulocytes # (auto) 0.03 K/uL (0.01-0.20); Immature Granulocytes % (auto) 0.4 %; Lymphocytes % (auto) 26.6 %; Mean Corpuscular Hemoglobin 29.7 pg (25.0-34.0); Mean Corpuscular Hgb Conc 32.5 g/dL (32.0-36.0); Mean Corpuscular Volume 91.5 fL (80.0-100.0); Mean Platelet Volume 10.5 fL (9.4-12.4); Neutrophils # (auto) 4.59 K/uL (1.40-6.50); Neutrophils % (auto) 64.5 %; Platelet Count 275 K/uL (130-400); RDW Coefficient of Variation 13.5 % (11.5-14.5); RDW Standard Deviation 45.3 fL (36.4-46.3); Red Blood Count 3.43 M/uL (4.20-5.40); White Blood Count 7.13 K/ul (4.8-10.8)
[2023-01-30 10:06] LABS: Alanine Aminotransferase 7 U/L (7-52); Albumin Globulin Ratio 1.3 (0.9-2); Albumin Level 3.9 gm/dl (3.4-5.0); Alkaline Phosphatase 117 U/L (34-104); Anion Gap 8 (3-11); Aspartate Aminotransferase 12 U/L (13-39); Bilirubin,Total 0.5 mg/dl (0.2-1.0); Blood Urea Nitrogen 16 mg/dl (6-23); Calcium 9.4 mg/dl (8.6-10.3); Carbon Dioxide 26 mmol/L (21-32); Chloride 105 mmol/L (98-107); Glucose 52 mg/dl (70-99(Fasting)); Potassium 3.9 mmol/L (3.5-5.1); Sodium 139 mmol/L (136-145); Total Protein 6.9 gm/dl (6.0-8.3)
--- NOTE | 2023-01-30 11:54 | History & Physical Report ---
Date of Service January 30, 2023 Assessment & Plan (1) Dehiscence of amputation stump of left lower extremity: Plan: Pt is a 77 yo female with PMH of chronic anemia, asthma, multiple vascular complications (carotid artery stenosis, right DVT, PAD, and BTKA of RLE), IDDM, and scleroderma presenting due to left foot wound dehiscence. Dehiscence of left foot surgical wound - original left foot metatarsal amputation performed 01/09/2023; this is her second dehiscence of the wound; it was previously fixed by podiatry 01/16/2023 - wound does not appear to be acutely infected so will not start ABX; blood cx and wound cx pending - podiatry consulted for further management Left leg pain - per pt, feels similar to past arterial occlusions; pt does have a hx of right LE DVT, she is no longer on anticoagulation- only plavix - doppler ordered to evaluate for possible clot HTN - pt hypertensive upon presentation to the ER - will continue home medications with exception of holding carvedilol for her night time dose d/t bradycardia DM - well controlled; last A1c in December 2022 7.5% - insulin glargine 15 units daily (same as her home regimen) - SSI; goal 100-140, CR 7, CF 50 Diet: carb consistent Code: DNR VTE ppx: lovenox daily Dispo: admit for observation to med/surg (2) Gangrene due to arterial insufficiency: (3) Benign essential hypertension: (4) Anemia: (5) Below-knee amputation of right lower extremity: (6) PAD (peripheral artery disease): (7) Diabetic peripheral neuropathy associated with type 1 diabetes mellitus: (8) Diabetes: History of Present Illness Chief Complaint: left foot wound dehiscence Primary Care Provider: Agustín Jarvis MD Pt is a 77 yo female with PMH of chronic anemia, asthma, multiple vascular complications (carotid artery stenosis, right DVT, PAD, and BTKA of RLE), IDDM, and scleroderma presenting due to left foot wound dehiscence. Pt states she had her left foot operated on 01/09/2023 due to forefoot gangrene. She underwent a left heel ulcer debridement and left transmetatarsal amputation. Per the patient, this wound dehisced on 01/16/2023 and this was sewn back together at the podiatry office. Her wound dehisced again this morning around 3 AM. She was not doing anything at that time to cause her wound to open. In the ER, lab work revealed no leukocytosis, Hgb 10.2 (baseline ~10-11), electrolytes WNL, and Cr 0.89. She was hemodynamically stable with hypertension and mild bradycardia. Allergies Allergy/AdvReac Type Severity Reaction Status Date / Time enflurane Allergy Severe NAUSEA, Verified 01/23/23 11:07 jaundiced Iodinated Contrast Media Allergy Intermediate HIVES - Verified 01/23/23 11:07 IVP DYE CHECO Inhibitors Allergy Mild hives Verified 01/23/23 11:07 nickel Allergy Mild REDNESS Verified 01/23/23 11:07 AND ITCHING liraglutide [From Victoza] AdvReac Mild SEVERE Verified 01/23/23 11:07 NAUSEA Home Medications Medication Instructions Recorded Confirmed Type blood sugar diagnostic (Contour #[id number] ea 08/08/20 01/30/23 Rx Test Strips) glucagon HCl 1 mg solution for 1 mg subcut Q20M PRN hypoglycemia 06/29/21 01/30/23 Rx injection (Glucagon (HCl) #1 ea Emergency Kit) insulin detemir U-100 100 unit/mL See Rx Instructions subcut QPM #4 07/05/21 01/30/23 Rx subcutaneous solution (Levemir vials U-100 Insulin) Prosthetic gel liners #2 ea 12/11/21 01/30/23 Rx Suspension sleeves #2 ea 12/11/21 01/30/23 Rx insulin lispro 100 unit/mL 1 sliding scale dose subcut 02/16/22 01/30/23 History subcutaneous solution (Humalog USEASDIRECTD U-100 Insulin) atorvastatin 80 mg tablet 80 mg PO QPM #90 tabs 02/23/22 01/30/23 Rx cholecalciferol (vitamin D3) 25 1,000 unit PO HS 06/19/22 01/30/23 History mcg (1,000 unit) capsule (Vitamin D3) clopidogrel 75 mg tablet (Plavix) 75 mg PO QAM #90 tabs 07/12/22 01/30/23 Rx docusate sodium 100 mg capsule 100 mg PO DAILY 10/25/22 01/30/23 History (Dulcolax Stool Softener (docusate)) nifedipine 60 mg tablet,extended 60 mg PO HS #90 tabs 10/31/22 01/30/23 Rx release R BKA prosthesis S88.111A #1 ea 11/27/22 01/30/23 Rx mometasone-formoterol HFA 200 2 puff inhalation BID PRN 12/20/22 01/30/23 History mcg-5 mcg/actuation aerosol Shortness Of Breath inhaler (Dulera) spironolactone 25 mg tablet See Rx Instructions .Route .COMPLEX 12/20/22 01/30/23 History ferrous gluconate 324 mg (37.5 mg 324 mg PO DAILY #30 tabs 01/03/23 01/30/23 Rx iron) tablet carvedilol 25 mg tablet (Coreg) 25 mg PO BID #180 tabs 01/23/23 01/30/23 Rx levothyroxine 100 mcg tablet 100 mcg PO DAILY #90 tabs 01/23/23 01/30/23 Rx losartan 100 mg tablet (Cozaar) 100 mg PO QAM #90 tabs 01/23/23 01/30/23 Rx omeprazole 20 mg capsule,delayed 20 mg PO HS #90 caps 01/23/23 01/30/23 Rx release sertraline 50 mg tablet See Rx Instructions .Route .COMPLEX 01/30/23 01/30/23 History Past Med/Surg History Medical History Anemia CHRONIC; BASELINE HGB STABLE AT 9-10 RANGE PER CHART REVIEW Asthma CONTROLLED/LAST USE OF INHALER "A LONG TIME AGO" Below-knee amputation of right lower extremity Carotid artery stenosis S/P LEFT (2002), RIGHT (1995) Cerebral aneurysm Chronic kidney disease STAGE III - FOLLOWS WITH NEPHRO- CREATINE USUALLY 1.3-1.5 Conductive hearing loss of right ear Constipation CREST syndrome Deep vein thrombosis RLE DVT DX'D 01/2018; CHRONIC-- ON XARELTO BID (PCP/VASCULAR MONITORING) Diabetes IDDM Diabetic foot ulcer Diverticular disease Gangrene due to arterial insufficiency left foot GERD (gastroesophageal reflux disease) History of COVID-19 12/20/22 [facility] - no symptoms History of MRSA infection April 2017 (right foot - has since been amputated) --> no active infection. Hx of carotid stenosis BOTH SIDES - HAD LEFT CEA 2002 AND RIGHT CEA 1995 Hx of deep venous thrombosis 2018 R LE Hx of renal cell cancer R RENAL (2012) S/P R NEPHRECTOMY - NO RADIATION NO CHEMO Hyperkalemia Hyperlipidemia Hypertension Hypertensive urgency Hypothyroidism Left carpal tunnel syndrome Occlusion and stenosis of carotid artery with cerebral infarction On anticoagulant therapy Osteoporosis Otalgia, left ear PAD (peripheral artery disease) Pressure ulcer of right foot, stage 2 Raynauds syndrome Renal artery stenosis RIGHT KIDNEY STENT ATTEMPTED 2010; S/P RIGHT NEPHRECTOMY 2012 Right lumbar radiculitis S/P angiogram of extremity left leg Scleroderma TMJ derangement Tympanic membrane perforation Vertigo Surgical History H/O carotid endarterectomy LEFT (2002), RIGHT (1995) H/O sinus surgery History of amputation of lesser toe of right foot MULTIPLE TOE AMPUTATIONS/I&D (ALL RT TOES) History of angioplasty MULTIPLE OF LE'S WITH STENTS TO LOWER EXTREMITIES PLACED History of appendectomy History of atherectomy LEFT (02/2017) [place] of [place] [place] History of carpal tunnel surgery RIGHT HAND, TRIGGER RIGHT FINGER History of cataract surgery RT/LEFT History of cholecystectomy History of colonoscopy History of endoscopic sinus surgery History of esophagogastroduodenoscopy (EGD) History of hysterectomy MERYL W/ BSO History of left breast biopsy 1997 History of nephrectomy RIGHT (2012) History of oophorectomy B/L OVARIES History of procedure for peripheral vascular disease LEFT POPLITEAL S/P PERONEAL ARTERY BYPASS 2012; RLE ANGIO WITH INTERVENTION 06/2017 History of tonsillectomy Hx of lumpectomy LEFT BREAST (BENIGN) Nausea and vomiting after administration of anesthetic agent S/P amputation right Below the knee amputation Family History Father Family hx of colon cancer Family history of diabetes mellitus Mother Lung cancer Stroke Unknown Rheumatoid arthritis Other No family history of adverse response to anesthesia No family history of bleeding disorder Social History Smoking Status: Never smoker Second Hand Exposure: No; Do You Dip or Chew Tobacco: No; Hx Alcohol Use: No Hx Substance Use: No Preferred Language: French Communication Ability: Effective Visual Impairment: No Limitations Hearing Ability: Normal Nursing Faculty Required: No Beliefs That Will Affect Care: None marital status: Current Living Situation: Spouse current occupational status: retired How many Children do You have: 0 How many Children do You have Comment: able to assist with care as needed. Feels Safe at Home: Yes Diet: diabetic during the past year weight has: decreased > 10 lbs Seatbelt Use: always Do you think of yourself as: straight/heterosexual Gender Identity: Female Assistive Devices: Cane, Prosthesis, Walker, Wheelchair and Other Review of Systems Review of Systems: As per HPI Physical Exam Physical Exam: Constitutional: NAD, hypertensive, mildly bradycardic Eyes: Conjunctivae normal. Respiratory: CTA bilaterally. Non labored breathing. No rhonchi, wheezing, or crackles. Cardiovascular: RRR. No murmurs noted. No left LE edema. Gastrointestinal (Abdomen): Nontender. No masses noted. Skin: Open left foot wound with peripheral granulation tissue. No overt signs of infection. Please refer to pictures in the chart. Neurologic: No FND appreciated. Psychiatric: Speech of normal pace and content. Mood and affect congruent. Results & Data Results & Data Vital Signs (Past 12 Hours) Vital Signs Temp Pulse Pulse Resp BP BP Pulse Ox 01/30/23 09:24 57 L 01/30/23 09:11 59 L 18 197/79 H 99 01/30/23 08:03 36.6 C 95 H 20 161/76 H 100 O2 Del Method 01/30/23 09:24 01/30/23 09:11 Room Air 01/30/23 08:03 Room Air Laboratory Results Abnormal lab results 01/30/23 01/30/23 01/30/23 Range/Units 09:13 09:13 09:35 RBC 3.43 L (4.20-5.40) M/uL Hgb 10.2 L (12.0-16.0) g/dl Hct 31.4 L (37.0-47.0) % Glucose 52 L* (70-99(Fasting)) mg/dl POC Glucose 55 L* (70-99) mg/dl AST 12 L (13-39) U/L Alkaline Phosphatase 117 H (34-104) U/L Medications Administered ER Medications Given: None Code Status & VTE Plan VTE Prophylaxis Plan VTE Prophylaxis will be ordered: Yes Supervising Physician Co-Signing Physician Notes I personally saw and examined the patient. I verified all glasgow points and agree with resident physician Dr Isabelle Esparza, with the following exceptions and/or additions: 77 year old female presents to the ER with wound dehiscence from recent left foot gangrene transmetatarsal amputation and left heel ulcer debridement performed by Dr Fernandez on January 09. No fever or chills. O/E HS RRR, no murmurs, Chest CTAB, Abdo SNT, open wound as seen above with granulation tissue and no overt cellulitic changes A/P Wound dehiscence - podiatry and wound care consult to determine next steps with possible wound vac No sign of active infection but clearly remains high risk for this and would consider weekly labs CBC/CRP/ESR as outpatient to monitor her closely. Left leg pain - US arterial doppler with chronic changes only, vascular surgery consult requested by podiatry HTN - Continue her routine medications with hydralazine 10mg IV q4h PRN as needed Resident Activity Tracking Resident Involvement: Resident Care Provided Care Provided: Adult Hospital Medicine
--- NOTE | 2023-01-30 13:47 | Ultrasound Report ---
LEFT LOWER EXTREMITY ARTERIAL DOPPLER ULTRASOUND CLINICAL HISTORY: Left calf pain. COMPARISON STUDY: Left lower extremity arterial Doppler ultrasound December 20, 2022. TECHNIQUE: Color and duplex Doppler sonography of the arterial system of the left lower extremity was performed. FINDINGS: There is extensive atherosclerotic plaque within the left lower extremity. There is biphasi c flow within left common femoral and proximal superficial femoral arteries. There is a patent bypass graft which extends from the distal left superficial femoral artery to a calf vessel. The nikolai dis jasmin left superficial femoral and popliteal arteries are occluded, as before. The left posterior tibia l artery is occluded. There is significantly dampened, monophasic flow within the left anterior tibia l artery, similar to prior exam. There is also dampened, monophasic flow within the dorsalis pedis. P ortions of the dorsalis pedis appears occluded. There is monophasic flow within the left peroneal art cris. This was not confidently identified on prior exam. IMPRESSION: 1. Extensive atherosclerotic plaque within the left lower extremity. 2. Patent bypass grafting the distal left superficial femoral artery to a calf vessel. 3. Occluded nikolai left superficial femoral and popliteal arteries, unchanged. 4. Significantly diminished flow within the left calf vessels, as detailed above. Occluded left poste rior tibial artery with dampened monophasic flow within the remainder of the calf vessels. Minimal ch moris since prior ultrasound. ACT 112: Negative or not required by law. Electronically signed by: Wing Coughlin M.D. 01/30/2023 1:45 PM
[2023-01-30] MEDS ORDERED: CARBOHYDRATES FOR HYPOGLYCEMIA PO PRN (14:21)
[2023-01-30] MEDS ORDERED: GLUCOSE 10 TAB/TUBE PO PRN (14:21)
[2023-01-30] MEDS ORDERED: DEXTROSE 50% 50 ML SYRINGE IV PRN (14:21)
[2023-01-30] MEDS ORDERED: PHARMACY GLYCEMIC MGMT CONSULT PRN (14:21)
[2023-01-30] MEDS ORDERED: FLUTICASONE/VILANTEROL 100/25MCG 14 PUFFS/INHALER INH PRN (14:21)
[2023-01-30] MEDS ORDERED: GLUCOSE 40% GEL 15 GM TUBE PO PRN (14:21)
[2023-01-30] MEDS ORDERED: GLUCAGON FOR INJ 1 MG VIAL SQ PRN (14:21)
[2023-01-30] MEDS ORDERED: hydrALAZINE HCL 20 MG/ML VIAL IV PRN (15:36)
--- NOTE | 2023-01-30 17:52 | Podiatry Consultation ---
Date of Consultation January 30, 2023 Assessment & Plan (1) Dehiscence of amputation stump of left lower extremity: (2) Diabetes: (3) PAD (peripheral artery disease): (4) Gangrene due to arterial insufficiency: Plan - Patient seen in ED while awaiting ultrasound. - Seen outpatient in office yesterday for suture removal. Has done well since surgery, but this is the second time this wound has dehisced, even while non- weightbearing and with minimal tension to the surgical site. - It may still heal with the use of a wound vac and outpatient wound care via secondary intention, but this will be a longer process. - She is unlikely to benefit much from a repeat primary closure; it failed to heal initially when her chance was best. - If wound care does not think she'd be amenable to a wound vac or wound care, we could try an aggressive surgical debridement with another primary closure, I just don't see it having great odds of healing. - Will continue to monitor. History of Present Illness Reason for Consultation: Left foot TMA dehiscence Attending Physician: Edgar Brooks MD History of Present Illness Patient seen in the ED prior to ultrasound. She is known to me and my practice, most recently seen yesterday outpatient. Her sutures were removed uneventfully and dressed with steri-strips and skin adhesive. At around 3:00AM, she noted her surgical site had dehisced. She has a complex history of peripheral arterial disease and prior right lower extremity lower extremity amputation. Now, more recently, we were consulted around a month ago after a left leg revascularization left her with dry gangrene of the toes. She had a transmetatarsal amputation after developing this gangrene with a primary closure. Her sutures were removed after they were noted to have decreased tension across them after surgery. She immediately dehisced, was seen outpatient, and we attempted primary closure again after debriding the surgical site in office. Now, after these sutures were removed two weeks later, her wound has dehisced again. She denies any systemic signs or symptoms of infection, but does not feel good about going home with her wound in its current state. Because of this, she presented to the ED looking for admission and wound suggestions. She denies walking on the foot and denies any trauma or injury. Allergies Allergy/AdvReac Type Severity Reaction Status Date / Time enflurane Allergy Severe NAUSEA, Verified 01/23/23 11:07 jaundiced Iodinated Contrast Media Allergy Intermediate HIVES - Verified 01/23/23 11:07 IVP DYE CHECO Inhibitors Allergy Mild hives Verified 01/23/23 11:07 nickel Allergy Mild REDNESS Verified 01/23/23 11:07 AND ITCHING liraglutide [From Victoza] AdvReac Mild SEVERE Verified 01/23/23 11:07 NAUSEA Home Medications Medication Instructions Recorded Confirmed Type blood sugar diagnostic (Contour #270 ea 08/08/20 01/30/23 Rx Test Strips) glucagon HCl 1 mg solution for 1 mg subcut Q20M PRN hypoglycemia 06/29/21 01/30/23 Rx injection (Glucagon (HCl) #1 ea Emergency Kit) insulin detemir U-100 100 unit/mL See Rx Instructions subcut QPM #4 07/05/21 01/30/23 Rx subcutaneous solution (Levemir vials U-100 Insulin) Prosthetic gel liners #2 ea 12/11/21 01/30/23 Rx Suspension sleeves #2 ea 12/11/21 01/30/23 Rx insulin lispro 100 unit/mL 1 sliding scale dose subcut 02/16/22 01/30/23 History subcutaneous solution (Humalog USEASDIRECTD U-100 Insulin) atorvastatin 80 mg tablet 80 mg PO QPM #90 tabs 02/23/22 01/30/23 Rx cholecalciferol (vitamin D3) 25 1,000 unit PO HS 06/19/22 01/30/23 History mcg (1,000 unit) capsule (Vitamin D3) clopidogrel 75 mg tablet (Plavix) 75 mg PO QAM #90 tabs 07/12/22 01/30/23 Rx docusate sodium 100 mg capsule 100 mg PO DAILY 10/25/22 01/30/23 History (Dulcolax Stool Softener (docusate)) nifedipine 60 mg tablet,extended 60 mg PO HS #90 tabs 10/31/22 01/30/23 Rx release R BKA prosthesis S88.111A #1 ea 11/27/22 01/30/23 Rx mometasone-formoterol HFA 200 2 puff inhalation BID PRN 12/20/22 01/30/23 History mcg-5 mcg/actuation aerosol Shortness Of Breath inhaler (Dulera) spironolactone 25 mg tablet See Rx Instructions .Route .COMPLEX 12/20/22 01/30/23 History ferrous gluconate 324 mg (37.5 mg 324 mg PO DAILY #30 tabs 01/03/23 01/30/23 Rx iron) tablet carvedilol 25 mg tablet (Coreg) 25 mg PO BID #180 tabs 01/23/23 01/30/23 Rx levothyroxine 100 mcg tablet 100 mcg PO DAILY #90 tabs 01/23/23 01/30/23 Rx losartan 100 mg tablet (Cozaar) 100 mg PO QAM #90 tabs 01/23/23 01/30/23 Rx omeprazole 20 mg capsule,delayed 20 mg PO HS #90 caps 01/23/23 01/30/23 Rx release sertraline 50 mg tablet See Rx Instructions .Route .COMPLEX 01/30/23 01/30/23 History Patient History Medical History Anemia CHRONIC; BASELINE HGB STABLE AT 9-10 RANGE PER CHART REVIEW Asthma CONTROLLED/LAST USE OF INHALER "A LONG TIME AGO" Below-knee amputation of right lower extremity Carotid artery stenosis S/P LEFT (2002), RIGHT (1995) Cerebral aneurysm Chronic kidney disease STAGE III - FOLLOWS WITH NEPHRO- CREATINE USUALLY 1.3-1.5 Conductive hearing loss of right ear Constipation CREST syndrome Deep vein thrombosis RLE DVT DX'D 01/2018; CHRONIC-- ON XARELTO BID (PCP/VASCULAR MONITORING) Diabetes IDDM Diabetic foot ulcer Diverticular disease Gangrene due to arterial insufficiency left foot GERD (gastroesophageal reflux disease) History of COVID-19 12/20/22 [facility] - no symptoms History of MRSA infection April 2017 (right foot - has since been amputated) --> no active infection. Hx of carotid stenosis BOTH SIDES - HAD LEFT CEA 2002 AND RIGHT CEA 1995 Hx of deep venous thrombosis 2017 R LE Hx of renal cell cancer R RENAL (2012) S/P R NEPHRECTOMY - NO RADIATION NO CHEMO Hyperkalemia Hyperlipidemia Hypertension Hypertensive urgency Hypothyroidism Left carpal tunnel syndrome Occlusion and stenosis of carotid artery with cerebral infarction On anticoagulant therapy Osteoporosis Otalgia, left ear PAD (peripheral artery disease) Pressure ulcer of right foot, stage 2 Raynauds syndrome Renal artery stenosis RIGHT KIDNEY STENT ATTEMPTED 2010; S/P RIGHT NEPHRECTOMY 2013 Right lumbar radiculitis S/P angiogram of extremity left leg Scleroderma TMJ derangement Tympanic membrane perforation Vertigo Surgical History H/O carotid endarterectomy LEFT (2002), RIGHT (1995) H/O sinus surgery History of amputation of lesser toe of right foot MULTIPLE TOE AMPUTATIONS/I&D (ALL RT TOES) History of angioplasty MULTIPLE OF LE'S WITH STENTS TO LOWER EXTREMITIES PLACED History of appendectomy History of atherectomy LEFT (02/2017) History of cardiac cath 2011= NO [place] [place] History of carpal tunnel surgery RIGHT HAND, TRIGGER RIGHT FINGER History of cataract surgery RT/LEFT History of cholecystectomy History of colonoscopy History of endoscopic sinus surgery History of esophagogastroduodenoscopy (EGD) History of hysterectomy MERYL W/ BSO History of left breast biopsy 1997 History of nephrectomy RIGHT (2012) History of oophorectomy B/L OVARIES History of procedure for peripheral vascular disease LEFT POPLITEAL S/P PERONEAL ARTERY BYPASS 2012; RLE ANGIO WITH INTERVENTION 06/2017 History of tonsillectomy Hx of lumpectomy LEFT BREAST (BENIGN) Nausea and vomiting after administration of anesthetic agent S/P amputation right Below the knee amputation Family History Father Family hx of colon cancer Family history of diabetes mellitus Mother Lung cancer Stroke Unknown Rheumatoid arthritis Other No family history of adverse response to anesthesia No family history of bleeding disorder Social History Smoking Status: Never smoker Second Hand Exposure: No; Do You Dip or Chew Tobacco: No; Hx Alcohol Use: No Hx Substance Use: No Preferred Language: French Communication Ability: Effective Visual Impairment: No Limitations Hearing Ability: Normal Band Teacher Required: No Beliefs That Will Affect Care: None marital status: Current Living Situation: Spouse current occupational status: retired How many Children do You have: 0 How many Children do You have Comment: able to assist with care as needed. Feels Safe at Home: Yes Diet: diabetic during the past year weight has: decreased > 10 lbs Seatbelt Use: always Do you think of yourself as: straight/heterosexual Gender Identity: Female Assistive Devices: Cane, Glasses and Wheelchair Review of Systems Constitutional: no fever, no chills and no body aches Eyes: no discharge and no eye pain Ear, Nose, Mouth, Throat: no dizziness and no nasal congestion Respiratory: no cough and no dyspnea Cardiovascular: no chest pain, no lightheadedness and no edema Gastrointestinal: + nausea; no vomiting Musculoskeletal: + deformity and + limited range of motion; no back pain Integumentary: + non-healing lesions and + skin ulcer Neurologic: + loss of sensation and + numbness; no radiating pain Psychiatric: no behavioral changes and no depression Physical Exam Physical Exam: Acute wound dehiscence noted to the entire TMA site of the left foot. No severe acute bleeding note only minimal serous drainage appreciated. No purulent drainage or cellulitis noted. Soft tissue is well approximateable with no acute necrosis/gangrene. No pain on palpation of the foot aside from some focal acute tenderness on palpation of the lateral aspect of the surgical site. No palpable fluid collection noted here. No obvious abscess noted to the surgical site or proximal, in general Constitutional: WD/WN, vitals as above Eyes: PERRL, conjunctivae normal, anicteric sclerae ENMT: external ear and nose normal, oropharynx normal Neck: trachea midline, no thyromegaly Respiratory: normal respiratory effort, lungs clear to auscultation Cardiovascular: RRR, no murmur, no edema Chest (Breasts): Chest: normal inspection of chest Gastrointestinal (Abdomen): Inspection/Auscultation: abdomen normal to inspection Musculoskeletal: Head/Neck/Chest: normocephalic and head atraumatic Extremities: + foot abnormality Gait: + antalgic gait (Non-ambulatory in wheelchair) Dehisced TMA site as noted previously Skin: + wound, + dry skin and + eschar Trauma: no evidence of skin trauma Neurologic: moves all extremities; + abnormal touch/pain/proprioception Psychiatric: A+Ox3, euthymic affect Results & Data Vital Signs (Past 12 Hours) Vital Signs Temp Pulse Pulse Pulse Resp BP BP 01/30/23 17:00 36.6 C 70 16 182/70 H 01/30/23 16:00 66 17 152/60 H 01/30/23 15:00 65 17 223/85 H 01/30/23 14:12 61 18 01/30/23 13:50 60 01/30/23 09:24 57 L 01/30/23 09:11 59 L 18 197/79 H 01/30/23 08:03 36.6 C 95 H 20 161/76 H Pulse Ox O2 Del Method 01/30/23 17:00 93 Room Air 01/30/23 16:00 96 Room Air 01/30/23 15:00 99 Room Air 01/30/23 14:12 98 Room Air 01/30/23 13:50 01/30/23 09:24 01/30/23 09:11 99 Room Air 01/30/23 08:03 100 Room Air
[2023-01-30] MEDS: INSULIN ASPART PER UNIT CHARGE SC SCH ×2 (18:01→21:51)
[2023-01-30] MEDS: ENOXAPARIN INJ 40 MG/0.4 ML SYR SQ SCH (19:43)
[2023-01-30] MEDS ORDERED: ACETAMINOPHEN 1,000 MG/100 ML VIAL IV PRN (19:43)
[2023-01-30] MEDS ORDERED: ACETAMINOPHEN 325 MG TAB PO PRN (20:31)
[2023-01-30] MEDS ORDERED: traMADol HCL 50 MG TABLET PO PRN (20:31)
[2023-01-30] MEDS ORDERED: LANTUS PER UNIT CHARGE SQ SCH (21:00)
[2023-01-30] MEDS: PANTOprazole 40 MG TAB PO SCH (21:47)
[2023-01-30] MEDS: ATORVASTATIN 40 MG TAB PO SCH (21:48)
[2023-01-30] MEDS: carvediloL 25 MG TAB PO SCH (21:48)
[2023-01-30] MEDS: NIFEdipine EXTENDED REL 30 MG TABCR PO SCH (21:48)
[2023-01-31] MEDS ORDERED: ONDANSETRON INJ 2 MG/ML 2 ML VIAL IV PRN (01:58)
[2023-01-31] MEDS: LEVOTHYROXINE SODIUM 100 MCG TABLET PO SCH (05:54)
[2023-01-31 06:30] LABS: Hematocrit (blood only) 28.9 % (37.0-47.0); Hemoglobin 9.3 g/dl (12.0-16.0); Mean Corpuscular Hemoglobin 29.7 pg (25.0-34.0); Mean Corpuscular Hgb Conc 32.2 g/dL (32.0-36.0); Mean Corpuscular Volume 92.3 fL (80.0-100.0); Mean Platelet Volume 10.8 fL (9.4-12.4); Platelet Count 251 K/uL (130-400); RDW Coefficient of Variation 13.8 % (11.5-14.5); RDW Standard Deviation 46.8 fL (36.4-46.3); Red Blood Count 3.13 M/uL (4.20-5.40); White Blood Count 7.91 K/ul (4.8-10.8)
[2023-01-31 06:49] LABS: BUN Creatinine Ratio 16.4 (10-20); Calcium 8.8 mg/dl (8.6-10.3); Creatinine Clr Calc Pharmacy 39.2 ml/min; Est GFR (African American) 56.5 ml/min; Est GFR (Non-African American) 48.7 ml/min; Potassium 4.7 mmol/L (3.5-5.1)
--- NOTE | 2023-01-31 07:57 | Hospitalist Progress Note ---
Date of Service January 31, 2023 Assessment & Plan (1) Dehiscence of amputation stump of left lower extremity: Plan: Pt is a 77 yo female with PMH of chronic anemia, asthma, multiple vascular complications (carotid artery stenosis, right DVT, PAD, and BTKA of RLE), IDDM, and scleroderma presenting due to left foot wound dehiscence. Dehiscence of left foot surgical wound: - original left foot metatarsal amputation performed 01/09/2023; this is her second dehiscence of the wound; it was previously fixed by Podiatry 01/16/2023 - wound does not appear to be acutely infected so will not start Abx; blood cx and wound cx pending - Hgb stable at 9.3, continue to monitor - podiatry and wound care consulted for further management, will place wound vac likely tomorrow - Vascular Surgery evaluation also requested - tramadol as needed for pain (2) Gangrene due to arterial insufficiency: Plan: - per pt, pain feels similar to past arterial occlusions; pt does have a hx of right LE DVT, she is no longer on anticoagulation, only Plavix - duplex 01/30/23 without significant change but with extensive atherosclerotic plaque in the LLE - Vascular Surgery consulted at request of Podiatry given repeated wound dehiscence (3) Anemia: Plan: - Chronic, with history of iron deficiency - Iron level 01/23/23 improving, continue iron supplement (4) Diabetes: Plan: - well controlled; last A1c in December 2022 7.5% - insulin glargine 15 units daily with SSI (5) Benign essential hypertension: Plan: - continue home regimen, pt normotensive (6) PAD (peripheral artery disease): Plan: - continue clopidogrel, statin, BP control Admission and Anticipated Discharge Date Admission Date: January 30, 2023 Subjective No overnight events, very little pain in right foot, no fevers or chills. Denies chest pain or SOB. Physical Exam Constitutional: WD/WN, vitals as above Respiratory: normal respiratory effort, lungs clear to auscultation Cardiovascular: RRR, no murmur, no edema Gastrointestinal (Abdomen): normal bowel sounds, soft, nontender, no hepatos plenomegaly Skin: dressing in place to left foot, not removed Psychiatric: A+Ox3, euthymic affect Results & Data Results & Data Vital Signs (Past 12 Hours) Vital Signs Temp Pulse Resp BP BP Pulse Ox O2 Del Method 01/31/23 01:36 108/64 01/30/23 21:10 36.9 C 70 16 201/70 H 198/73 H 96 Room Air PG Care Time/CCT Total # of Minutes Spent Total Time Spent with Patient: Total time spent is greater than 50% in coordination of care (as documented) at patient's floor/unit and/or counseling patient: Coding Level of Care Code 58220 SUB INP/OBS CARE 3/50MIN Diagnoses Dehiscence of amputation stump of left lower extremity T87.81 Gangrene due to arterial insufficiency I77.1; I96 Anemia D64.9 Diabetes E11.9 Benign essential hypertension I10 PAD (peripheral artery disease) I73.9
[2023-01-31] MEDS: INSULIN ASPART PER UNIT CHARGE SC SCH ×4 (08:52→21:23)
[2023-01-31] MEDS: carvediloL 25 MG TAB PO SCH ×2 (08:55→21:32)
[2023-01-31] MEDS: CLOPIDOGREL BISULFATE 75 MG TAB PO SCH (08:56)
[2023-01-31] MEDS: DOCUSATE SODIUM 100 MG CAP PO SCH (08:56)
[2023-01-31] MEDS: SPIRONOLACTONE 25 MG TAB PO SCH (08:57)
[2023-01-31] MEDS: LOSARTAN POTASSIUM 50 MG TAB PO SCH (08:57)
[2023-01-31] MEDS ORDERED: carvediloL 25 MG TAB PO SCH (09:00)
[2023-01-31] MEDS: FERROUS GLUCONATE 324 MG TAB PO SCH (09:59)
--- NOTE | 2023-01-31 12:45 | Pharmacy Report ---
Pharmacy Glycemic Short Note 2 - Date of Service January 31, 2023 - Glycemic Short BSG Results (Last 24 hours): 01/30/23 01/30/23 01/31/23 17:29 21:05 06:01 Glucose 99 POC Glucose 110 H 178 H 01/31/23 01/31/23 07:35 12:03 Glucose POC Glucose 104 H 120 H OUTPATIENT ANTIDIABETIC REGIMEN: * Detemir 15 units SQ HS * Lispro SSI ASSESSMENT: * 77 yo female with PMH of chronic anemia, asthma, multiple vascular complications (carotid artery stenosis, right DVT, PAD, and BTKA of RLE), IDDM, and scleroderma presenting due to left foot wound dehiscence. Cultures pending. * Patient on basal bolus insulin at home as above, started home basal dose last night, continue. * Blood sugars at goal, continue CF/CR and titrate as needed. PLAN FOR INPATIENT GLYCEMIC CONTROL: * Hold outpatient diabetes medications * Basal insulin * Lantus 15 units SQ HS * Bolus insulin * NovoLog per scale ACHS or Q6hrs while NPO * Goal Range: Low 110 mg/dL - High 140 mg/dL * Correction Factor: 35 mg/dL/unit * Nutritional / Prandial insulin per carb ratio of 1 unit per 12 grams CHO consumed
--- NOTE | 2023-01-31 13:14 | Billing Data ---
Date of Service January 30, 2023 Coding Level of Care Code 41014 INT INP/OBS CARE
[2023-01-31] MEDS: ENOXAPARIN INJ 40 MG/0.4 ML SYR SQ SCH (17:24)
[2023-01-31] MEDS ORDERED: LANTUS PER UNIT CHARGE SQ SCH (21:00)
[2023-01-31] MEDS: PANTOprazole 40 MG TAB PO SCH (21:22)
[2023-01-31] MEDS: NIFEdipine EXTENDED REL 30 MG TABCR PO SCH (21:23)
[2023-01-31] MEDS: ATORVASTATIN 40 MG TAB PO SCH (21:23)
--- OUTSIDE RECORDS SUMMARY | 2023-01-31 23:07 | External Medical Summary | Continuity of Care Document ---
Author Name Unknown Organization [facility] [address] [facility] Address [address] [place], [place] [id number] Care Team Providers Care Gas Well Pumper Name Role Phone Jarvis, Agustín Sánchez Primary Care Physician [phone] [id number] Date(s): 12/17/22 - 12/17/22 [facility] [address], [address] [place] [address] [phone] Encounter Diagnosis S/P femoral-tibial bypass(Discharge Diagnosis) - 12/17/22 Peripheral vascular disease(Discharge Diagnosis) - 12/17/22 Diabetic foot ulcer(Discharge Diagnosis) - 12/17/22 Gangrene of toe of left foot(Discharge Diagnosis) - 12/17/22 Discharge Disposition: Home or Self Care Attending Physician: MD Lyndsay, [place] Allergies, Adverse Reactions, Alerts Substance Reaction Severity Status rony brito Active IVP dye hives Active CHECO Inhibitors Swelling Hives Active Medications acetaminophen Start: 04/07/20 10:46:00 EST, 500 mg prn pain Start Date: 04/07/20 Status: Ordered Advair Diskus 250 mcg-50 mcg Start: 09/08/12 14:16:00, 1 puff, inhaled, bid, PRN: Wheezing Start Date: 09/08/12 Status: Ordered atorvastatin Start: 03/17/15 15:55:00, 80 mg =, PO, Daily Start Date: 03/17/15 Status: Ordered carvedilol Start: 02/28/16 13:30:00 EDT, 25 mg =, PO, bid Start Date: 02/28/16 Status: Ordered clindamycin 300 mg oral capsule Start: 12/17/22 15:58:00 EDT, 1 cap, PO, qid, Disp# 40 cap, Refills: 0, Pharmacy: [id number] Start Date: 12/17/22 Status: Ordered gabapentin 100 mg oral capsule Start: 12/17/22 15:24:00 EDT, 1 cap, PO, bid Start Date: 12/17/22 Status: Ordered HumaLOG Start: 01/29/14 14:18:00, subQ, qid, sliding scale per BS readings up to 50-60 units daily Start Date: 01/29/14 Status: Ordered Levemir Start: 01/29/14 14:19:00 EDT, See Instructions, 15 units subQ qPM Start Date: 01/29/14 Status: Ordered levothyroxine Start: 01/28/19 13:17:00 EDT, 150 mcg =, PO, Daily Start Date: 01/28/19 Status: Ordered losartan 100 mg oral tablet Start: 09/14/15 11:43:00, 1 tab, PO, Daily, Disp# 90, Refills: 3 Start Date: 09/14/15 Status: Ordered NIFEdipine (Eqv-Procardia XL) 60 mg oral tablet, extended release Start: 10/03/21 13:02:00 EDT, 1 tab, PO, Daily Start Date: 10/03/21 Status: Ordered omeprazole 20 mg oral delayed release tablet Start: 06/12/12 14:01:00, 1 tab, PO, bid Start Date: 06/12/12 Status: Ordered Plavix 75 mg oral tablet Start: 02/28/13 8:34:00, 1 tab, PO, Daily Start Date: 02/28/13 Status: Ordered Probiotic Formula Start: 06/04/17 14:23:00, 1 cap, PO, Daily Start Date: 06/04/17 Status: Ordered spironolactone 50 mg oral tablet Start: 10/23/22 8:47:00 EDT, 1 tab, PO, bid Start Date: 10/23/22 Status: Ordered traMADol 50 mg oral tablet Start: 12/17/22 15:25:00 EDT, 2 tab, PO, q4h, PRN: as needed for pain Start Date: 12/17/22 Status: Ordered traMADol 50 mg oral tablet Start: 12/17/22 16:03:00 EDT, 1 tab, PO, q4h, Disp# 30 tab, PRN: as needed for pain, Pharmacy: [id number] Start Date: 12/17/22 Status: Ordered Vitamin D3 1000 intl units oral tablet Start: 01/29/14 14:20:00, 1 tab, PO, Daily Start Date: 01/29/14 Status: Ordered Problem List Condition Confirmation Course Effective Dates Status Health Status Informant Below knee amputation Confirmed Active Asthma Confirmed Active Atherosclerosis Confirmed Active Carotid stenosis Confirmed Active Carotid artery stenosis Confirmed Active Cataract Confirmed Active CKD (chronic kidney disease), stage III Confirmed Active Diabetic foot ulcer Confirmed Active Pain of right foot Confirmed Active GERD Confirmed Active Hx of amputation Confirmed Active S/P transmetatarsal amputation of foot Confirmed Active S/P amputation of lesser toe Confirmed Active S/P femoral-tibial bypass Confirmed Active S/p bilateral carotid endarterectomy Confirmed Active Hyperlipidemia Confirmed Active HYPERTENSION. Confirmed Active Hypothyroid Confirmed Active Renal cancer Confirmed Active MRSA (methicillin resistant Staphylococcus aureus) Confirmed Active Peripheral artery disease Confirmed Active Peripheral vascular disease Confirmed Active CARMELITA (renal artery stenosis) Confirmed Active Secondary hyperparathyroidism Confirmed Active Postop check Confirmed Active Thyroid disease Confirmed Active Type II diabetes mellitus Confirmed Active Ulcer of heel Confirmed Active Vaginitis Confirmed Active Weight disorder Confirmed Active Diagnosis Diagnosis Type Effective Dates Health Status Clinical Service Informant Peripheral vascular disease Discharge Diagnosis 12/17/22 Non-Specified Diabetic foot ulcer Discharge Diagnosis 12/17/22 Non-Specified S/P femoral-tibial bypass Discharge Diagnosis 12/17/22 Non-Specified Gangrene of toe of left foot Discharge Diagnosis 12/17/22 Non-Specified Procedures Procedure Date Related Diagnosis Body Site Status LLE Angiogram w lithotripsy and CHASSIS WIRER peroneal 06/25/22 Completed LLE Angiogram w/ CHASSIS WIRER peroneal artery 04/21/21 Completed LLE angiogram without intervention 03/25/20 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 09/02/19 Completed lle angio w well logging mud analysis captain l peroneal a nd stent l common iliac art 07/15/19 Completed Abdominal aortogram w/ CHASSIS WIRER/s tent of paulo PONCHO 07/06/19 Completed RLE COMMUTATOR TESTER - Endarterectomy of the common femoral artery wi/ bovine patch and fem-ant tib in situ bypass 04/17/19 Compl eted RLE Angiogram without intervention 04/03/19 Completed Revision RLE transmetatarsal amputation 11/11/18 Completed RLE angiogram w/ CHASSIS WIRER peronea l and popliteal artery 10/10/18 Completed Amputation of left 1st toe a nd metatarsal 02/11/18 Completed RLE angiogram w/ CHASSIS WIRER peroneal 11/22/17 Completed RLE angiogram w/ CHASSIS WIRER peronea l, TP trunk and pop 09/16/17 Completed Amputation of Right 3rd toe 07/12/17 Completed RLE Surgical debridement of foot wound, transmetatarsal amp 4th toe, excision 3rd metatartsal and prox phalnx 06/19/17 Completed RLE angiogram w/ CHASSIS WIRER/stent p opliteal artery, CHASSIS WIRER peroneal 06/14/17 Completed RLE 5th toe amputation 04/30/17 Co mpleted RLE angiogram with intervention 02/15/17 Completed RLE Mechanical Atherectomy a nd CHASSIS WIRER of popliteal, thrombolysis/TPA and recheck 02/15/17 Completed Nephrectomy 1 04/2013 Completed Vascular surgery 02/25/13 Complete d Popliteal artery 2 02/2013 Comple prisca Plantar wart 3 01/2013 Completed Planters Warts Removed From [facility] 2012 Completed Cardiac catheterization 11/21/11 C ompleted Colonoscopy 2011 Completed Attempted Kidney Stent-Right 2010 Completed bilateral cataracts 2009 Compl eted Endoscopy 2009 Completed L carotidendartectomy 2002 Com pleted L breast biopsy 1997 Completed Rt carotidendarterectomy 1995 Completed Cholecystectomy 1988 Completed complete hysterectomy 1976 Com pleted partial oophorectomy 1969 Comp leted sinus polyp 1970 Completed Appendectomy 1960 Completed Tonsillectomy 1950 Completed Duplex Completed Duplex Completed 1right kidney 2bypass 3removal of the left foot Vital Signs Most recent to oldest [Reference Range]: 1 Heart Rate 73 bpm (12/17/22 3:25 PM) Blood Pressure 120/52mmHg (12/17/22 3:25 PM) Cuff Pulse Pressure 68 mmHg (12/17/22 3:25 PM) BP Location # 1 Left Arm (12/17/22 3:25 PM) Social History Social History Type Response Smoking Status Never smoked cigaret robert Sex Female Patient Care team information Care Team Personnel Name: LEONARDO Shepherd Lauren O Position: Nurse Pract - Orthopaedic Surg Member Role: Lifetime Relationship Address: Address: [address] [place] [address] Name: MD Matheus, Agustín Sánchez Position: Referring DIRECT Member Role: Primary Care Provider Address: Address: [address] [place] [id number] Name: EDILIA Pastor Lynn Position: Physician 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
--- OUTSIDE RECORDS SUMMARY | 2023-01-31 23:07 | External Medical Summary ---
Author Name Unknown Address Unknown Organization K1F:[facility] - [address] [place] [address] Laboratory Report Ordering Provider Test Date Status JANKI JOHNSTON 11/10/2022 21:58:53 Final Observation Date Value Abnormality Reference (Units ) Status PT 11/10/2022 21:58:53 13.4 11.6-15.2 (seconds) Final INR 11/10/2022 21:58:53 1.0 0.8-1.2 Final Performing Location [facility] - [address] [place] [address]
--- OUTSIDE RECORDS SUMMARY | 2023-01-31 23:07 | External Medical Summary | Continuity of Care Document ---
Author Name Unknown Organization [place] [address] Address [address] [place], [place] [id number] Care Team Providers Care Design Center Consultant Name Role Phone Agustín Jarvis Primary Care Physician [phone] Encounter [facility] [id number] Date(s): 01/07/23 - 01/07/23 [facility] [address] [place] [address] [phone] Encounter Diagnosis Atherosclerosis(Discharge Diagnosis) - 01/07/23 Discharge Disposition: Home or Self Care Attending Physician: MD Lyndsay, [place] Referring Physician: MD Jarvis Eric K Allergies, Adverse Reactions, Alerts Substance Reaction Severity Status rony almgauer daryl Active IVP dye hives Active CHECO Inhibitors Swelling Hives Active Medications acetaminophen Start: 04/07/20 10:46:00 EST, 500 mg prn pain Start Date: 04/07/20 Status: Ordered Advair Diskus 250 mcg-50 mcg Start: 09/08/12 14:16:00, 1 puff, inhaled, bid, PRN: Wheezing Start Date: 09/08/12 Status: Ordered amoxicillin-clavulanate 875 mg-125 mg oral tablet TAKE 1 TABLET BY MOUTH TWICE DAILY Start Date: 01/07/23 Status: Ordered atorvastatin Start: 03/17/15 15:55:00, 80 mg =, PO, Daily Start Date: 03/17/15 Status: Ordered carvedilol Start: 02/28/16 13:30:00 EDT, 25 mg =, PO, bid Start Date: 02/28/16 Status: Ordered doxycycline hyclate 100 mg oral capsule Start: 01/07/23 15:18:00 EDT, 1 cap, PO, bid Start Date: 01/07/23 Status: Ordered gabapentin 100 mg oral capsule [...] tab, PRN: as needed for pain, Pharmacy: [id number] Start Date: 12/17/22 Status: Ordered Vitamin D3 1000 intl units oral tablet Start: 01/29/14 14:20:00, 1 tab, PO, Daily Start Date: 01/29/14 Status: Ordered Mental Status 01/07/23 Barriers to Learning one year None evide nt, Vision impairment, Other: Mandatory Health Literacy Documentation Yes Health Literacy Communication Barriers N ever Primary Language Slovak Problem List Condition Confirmation Course Effective Dates [...] Diagnosis Diagnosis Type Effective Dates Health Status Cl inical Service Informant Atherosclerosis Discharge Diagnosis 01/07/23 Procedures Procedure Date Related Diagnosis Body Site Status LLE Angiogram w/ FLOATING OPERATOR ant tib artery 12/24/22 Completed LLE Angiogram w lithotripsy and FLOATING OPERATOR peroneal 06/25/22 Completed LLE Angiogram w/ FLOATING OPERATOR peroneal artery 04/21/21 Completed LLE angiogram without intervention 03/25/20 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 09/02/19 Completed lle angio w patrol captain l peroneal a nd stent l common iliac art 07/15/19 Completed Abdominal aortogram w/ FLOATING OPERATOR/s tent of paulo PONCHO 07/06/19 Completed RLE WET PAN MIXER - Endarterectomy of the common femoral artery wi/ bovine patch and fem-ant tib in situ bypass 04/17/19 Compl eted RLE Angiogram without intervention 04/03/19 Completed Revision RLE transmetatarsal amputation 11/11/18 Completed RLE angiogram w/ FLOATING OPERATOR peronea l and popliteal artery 10/10/18 Completed Amputation of left 1st toe a nd metatarsal 02/11/18 Completed RLE angiogram w/ FLOATING OPERATOR peroneal 11/22/17 Completed RLE angiogram w/ FLOATING OPERATOR peronea l, TP trunk and pop 09/16/17 Completed Amputation of Right 3rd toe 07/12/17 Completed RLE Surgical debridement of foot wound, transmetatarsal amp 4th toe, excision 3rd metatartsal and prox phalnx 06/19/17 Completed RLE angiogram w/ FLOATING OPERATOR/stent p opliteal artery, FLOATING OPERATOR peroneal 06/14/17 Completed RLE 5th toe amputation 04/30/17 Co mpleted RLE angiogram with intervention 02/15/17 Completed RLE Mechanical Atherectomy a nd FLOATING OPERATOR of popliteal, thrombolysis/TPA and recheck 02/15/17 Completed Nephrectomy 1 04/2013 Completed Vascular surgery 02/25/13 Complete d Popliteal artery 2 02/2013 Comple prisca Plantar wart 3 01/2013 Completed Planters Warts Removed From [facility] 2012 Completed Cardiac catheterization 11/21/11 C ompleted Colonoscopy 2011 Completed Attempted Kidney Stent-Right 2010 Completed bilateral cataracts 2009 Compl eted Endoscopy 2008 Completed L carotidendartectomy 2002 Com pleted L breast biopsy 1997 Completed Rt carotidendarterectomy 1995 Completed Cholecystectomy 1988 Completed complete hysterectomy 1976 Com pleted partial oophorectomy 1969 Comp leted sinus polyp 1970 Completed Appendectomy 1960 Completed Tonsillectomy 1950 Completed Duplex Completed Duplex Completed 1right kidney 2bypass 3removal of the left foot Vital Signs Most recent to oldest [Reference Range]: 1 Heart Rate 76 bpm (01/07/23 3:21 PM) Blood Pressure 168/68mmHg (01/07/23 3:21 PM) Cuff Pulse Pressure 100 mmHg (01/07/23 3:21 PM) BP Location # 1 Right Arm (01/07/23 3:21 PM) Social History Social History Type Response Smoking Status Never smoked cigaret robert Sex Female Patient Care team information Care Team Personnel Name: LEONARDO Mcintosh Lauren O Position: Nurse Pract - Orthopaedic Surg Member Role: Lifetime Relationship Address: Address: [address] [place] [address] Name: MD Matheus, Agustín Sánchez Position: Referring DIRECT Member Role: Primary Care Provider Address: Address: [address] [place] [id number] [place] Name: EDILIA Pastor Lynn Position: Physician Information Assurance Specialist Exempt - Vasc Surg Member Role: Lifetime Relationship Address: Address: [address] [place] [address] Name: MD Page Jay D Position: Physician - Urology Member Role: Lifetime Relationship Address: Address: [address] [place] [id number] Care Team Related Persons Name: AXEL BOND Address: home [address] [place] [address] [address] [place], [place] [id number]
--- OUTSIDE RECORDS SUMMARY | 2023-01-31 23:07 | External Medical Summary ---
Author Name Unknown Address Unknown Organization K1F:LABORATORY [facility] - [address] [place] [address] Laboratory Report Ordering Provider Test Date Status FERDINAND JOHNSTONRICHA 11/10/2022 21:19:37 Final Observation Date Value Abnormality Reference (Units ) Status SYNC LEUKOCYTES IN BLOOD BY AUTOMATED COUNT 11/10/2022 21:19:37 8.76 4.00-10.80 (K/uL) Final Segs 11/10/2022 21:19:37 46.1 40.0-75.0 (%) Final Lymphs % 11/10/2022 21:19:37 44.9 Above high normal 18.0-42.0 (%) Final Monos 11/10/2022 21:19:37 5.6 1.0-11.0 (%) Final Eosinophils 11/10/2022 21:19:37 2.9 0.0-6.0 (%) Final Basos 11/10/2022 21:19:37 0.2 0.0-2.0 (%) Final Immature Granulocyte, Percent 11/10/2022 21:19:37 0.3 0.0-2.0 (%) Final Absolute Segs 11/10/2022 21:19:37 4.04 1.80-7.70 (K/uL) Final Lymphs, absolute 11/10/2022 21:19:37 3.93 1.00-4.80 (K/ul) Final Monos, Abs 11/10/2022 21:19:37 0.49 0.00-1.10 (K/uL) Final Eos, Abs 11/10/2022 21:19:37 0.25 0.00-0.70 (K/uL) Final Basos, Abs 11/10/2022 21:19:37 0.02 0.00-0.20 (K/uL) Final Immature Granulocytes, Number 11/10/2022 21:19:37 0.03 0.00-0.20 (K/uL) Final Performing Location LABORATORY [facility] - [address] [place] [address]
--- OUTSIDE RECORDS SUMMARY | 2023-01-31 23:07 | External Medical Summary ---
Author Name Unknown Address Unknown Organization K1F:LABORATORY [facility] - [address] [place] [address] Laboratory Report Ordering Provider Test Date Status JANKI JOHNSTON 11/10/2022 21:19:37 Final Observation Date Value Abnormality Reference (Units ) Status WBC, Total 11/10/2022 21:19:37 8.76 4.00-10.80 (K/uL) Final RBC 11/10/2022 21:19:37 4.25 3.85-5.15 (M/uL) Final Hemoglobin 11/10/2022 21:19:37 13.4 12.0-15.3 (g/dL) Final HCT 11/10/2022 21:19:37 39.9 36.0-45.2 (%) Final MCV 11/10/2022 21:19:37 93.9 81.5-97.5 (fL) Final MCH 11/10/2022 21:19:37 31.5 27.0-34.0 (pg) Final MCHC 11/10/2022 21:19:37 33.6 32.0-36.0 (g/dL) Final RDW 11/10/2022 21:19:37 13.4 11.5-15.5 (%) Final Platelets 11/10/2022 21:19:37 192 140-400 (K/uL) Final MPV 11/10/2022 21:19:37 10.7 6.6-11.1 (fL) Final Nucleated erythrocytes/100 leukocytes [Ratio] in Blood by Automated count 11/10/2022 21:19:37 0 <=0 (/100 WBCs) Final Performing Location LABORATORY [facility] - [address] [place] [address]
--- OUTSIDE RECORDS SUMMARY | 2023-01-31 23:07 | External Medical Summary | Summary of Care ---
Author Name Unknown Organization [facility] Address [address] [place] [address] Phone [phone] Care Team Providers Care Drilling Fluids Specialist Name Role Phone Agustín Jarvis MD Primary Care Provider [phone] Encounter Details Date Type Department Care Team Description 01/22/2023 Office Visit Otolaryngology, Christy Parks [address] [place] [phone] Gary Kilgore PA-C [address] [phone] Perforation of right tympanic membrane* Allergies Active Allergy Reactions Severity Noted Date Comments Ivp Dye Hives 08/05/2006 Lisinopril Edema Other 06/01/2010 Angioedema documented as of this encounter (statuses as of 01/22/2023) Medications Medication Sig Dispensed Refills Start Date End Date Status ATORVASTATIN CALCIUM 80 MG PO TABS one pill each day 0 Acti ve CLOPIDOGREL BISULFATE 75 MG PO TABS one pill each day 0 Acti ve HUMALOG 100 UNIT/ML SUBQ SOLN sliding scale coverage 0 Active NIFEDIPINE ER 30 MG PO TB24 one pill each day 0 Active SPIRONOLACTONE 25 MG PO TABS one pill twice a day 0 Active VITAMIN D-3 1000 UNITS PO CAPS one pill once a day 0 Active Losartan Potassium 100 MG Tablet Take 1 Tablet by mouth in the morning. 0 02/09/2016 Active omeprazole (PRILOSEC) 40 MG CPDR 0 12/06/2016 Active carvedilol (COREG) 25 MG Tablet 1/2 tab in the am and 1 tab in the pm 0 01/09/2017 Active levothyroxine (LEVOXYL) 175 MCG Tablet Take 1 Tablet by mouth daily first thing in the morning. (at least 30 min prior to breakfast or other meds) 0 Active Insulin Detemir 100 UNIT/ML Subcutaneous Solution (Levemir) Inject 15 Units before bedtime under the skin. 1 Each 12 06/29/2021 Active oxyCODONE-Acetaminoph en 5-325 MG Oral Tablet (Percocet) Take 1 Tablet by mouth every 4 hours as needed for Pain, Severe or Pain, Breakthrough. 6 Tablet 0 11/11/2022 Active Naloxone HCl 4 MG/0.1ML Nasal Liquid (Narcan Nasal) Administer 1 spray into 1 nostril for suspected opioid overdose. Seek immediate medical attention. [email or web address]://[email or web address]?v=[email or web address] 1 Each 3 11/11/2022 Active documented as of this encounter (statuses as of 01/22/2023) Active Problems Problem Noted Date Osteoporosis 07/17/2022 Hypoglycemia 06/28/2021 Hypothermia 06/28/2021 Diarrhea of presumed infectious origin 0 06/28/2021 Type 2 diabetes mellitus with hemoglobin A1c goal of less than 7.0% 06/28/2021 ETD (Eustachian tube dysfunction), bilat eral 08/04/2018 At risk for barotrauma due to hyperbaric oxygen therapy 08/04/2018 Right asymmetrical SNHL 08/04/2018 Hypothyroidism 08/05/2006 Dyslipidemia, goal to be determined 10/2006 DM type 2, not at goal 08/05/2006 HYPERTENSION NOS 08/05/2006 S/P carotid endarterectomy 08/05/2006 documented as of this encounter (statuses as of 01/22/2023) Social History Tobacco Use Types Packs/Day Years Used Date Smoking Tobacco: Never Smokeless Tobacco: Never Alcohol Use Standard Drinks/Week Comments Never 0 (1 standard drink = 0.6 oz pur e alcohol) Alcohol Habits Answer Date Recorded How often do you have a drink containing alcohol ? Never 06/28/2021 How many drinks containing a lcohol do you have on a typical day when you are drinking? Not asked How often do you have six or more drinks on one occasion? Not asked Sex Assigned at Date Recorded Not on file Job Start Date Occupation Industry Not on file Not on file Not on file documented as of this encounter Functional Status Functional Status Response Date of Assess ment Are you deaf or do you have serious difficulty h earing? No 06/28/2021 Are you blind or do you have serious difficulty seeing, even when wearing glasses? No 06/28/2021 Do you have serious difficul ty walking or climbing stairs? (5 years old or older) Yes 06/28/2021 Do you have difficulty dress ing or bathing? (5 years old or older) No 06/28/2021 Because of a physical, menta l, or emotional condition, do you have difficulty doing errands alone such as visiting a doctor s office or shopping? (15 years old or older) Yes 06/28/19 Cognitive Status Response Date of Assessm ent Because of a physical, menta l, or emotional condition, do you have serious difficulty concentrating, remembering, or making decisions? (5 years old or older No 06/28/2021 documented as of this encounter Progress Notes * Gary Kilgore PA-C - 01/22/2023 8:28 AM EDT There are no exam notes on file for this visit. History of Present Illness This 77 year old YO female is seen at the request of Agustín Jarvis MD for the evaluation of right TM perforation. The patient reported that she has been doing well with no acute concerns. She denied otalgia, otorrhea, aural fullness, or acute decreases in hearing. She has been maintaining water precautions. Medical History Patient Active Problem List Diagnosis Code Hypothyroidism E03.9 Dyslipidemia, goal to be determined E78.5 DM type 2, not at goal ([facility]) E11.9 HYPERTENSION NOS I10 S/P carotid endarterectomy Z98.890 ETD (Eustachian tube dysfunction), bilateral H69.83 At risk for barotrauma due to hyperbaric oxygen therapy Z91.89 Right asymmetrical SNHL [id number] Hypoglycemia E16.2 Hypothermia T68.XXXA Diarrhea of presumed infectious origin R19.7 Type 2 diabetes mellitus with hemoglobin A1c goal of less than 7.0% ([facility]) E11.9 Osteoporosis M81.0 Past Medical History: Diagnosis Date Asthma Benign neoplasm of colon 06/01/10 polyp--villous tissue repeat in 1 yr Carotid artery occlusion syndrome Carpal tunnel syndrome Cataracts, bilateral Diabetes mellitus with neuropathy (HCC) H/O unilateral nephrectomy 2012 Right Hypertension Peripheral arterial disease (HCC) Raynaud's phenomenon (secondary) Stage 3 chronic kidney disease (HCC) Past Surgical History: Procedure Laterality Date CARPAL TUNNEL SURGERY Right 11/1912 [facility] COLONOSCOPY W/ LESION REMOVAL, SNARE 06/01/10 polyp--villous tissue repeat in 1 yr COLONOSCOPY, DIAGNOSTIC (RECTUM) 08/23/11 diverticulosis,repeat colonoscopy in 3 years COLONOSCOPY, DIAGNOSTIC (RECTUM) 08/02/2014 Diverticulosis in the sigmoid colon. no evidence of inflammation. repeat in 3 yrs/COLONOSCOPY FLEXIBLE PROXIMAL DIAGNOSTIC performed by Hanny Graham DO at [facility], FLEXIBLE, TRANSENDOSCOPIC DILATION <30MM 08/23/11 biopsisies repeat egd in 4 weeks LAP;W/HYSTERECTOMY 1969, Hysterectomy Complete LAPAROSCOPY; CHOLECYSTECTOMY Cholecystectomy, Laproscopic MISCELLANEOUS ORDER ([facility] ONLY) Left 02/25/2013 Left leg bypass, Dr. Lopez [facility] [place] REMOVAL OF KIDNEY Right Dr Page [facility] [place] REMOVAL OF TONSILS, UNDER AGE 13 Tonsillectomy Family History Problem Relation Age of Onset Other (Dermatomyositis) Mother No Known Problems Father Social History Tobacco Use Smoking status: Never Smokeless tobacco: Never Substance Use Topics Alcohol use: Never Vaping/E-Cigarette Use Vaping/E-Cigarette Substances Nicotine No Cannabidiol (CBD) No Vaping/E-Cigarette Devices Disposable No Medications Current Outpatient Medications Medication Sig Dispense Refill ATORVASTATIN CALCIUM 80 MG PO TABS one pill each day CLOPIDOGREL BISULFATE 75 MG PO TABS one pill each day HUMALOG 100 UNIT/ML SUBQ SOLN sliding scale coverage NIFEDIPINE ER 30 MG PO TB24 one pill each day SPIRONOLACTONE 25 MG PO TABS one pill twice a day VITAMIN D-3 1000 UNITS PO CAPS one pill once a day Losartan Potassium 100 MG Tablet Take 1 Tablet by mouth in the morning. omeprazole (PRILOSEC) 40 MG CPDR carvedilol (COREG) 25 MG Tablet 1/2 tab in the am and 1 tab in the pm levothyroxine (LEVOXYL) 175 MCG Tablet Take 1 Tablet by mouth daily first thing in the morning. (atleast 30 min prior to breakfast or other meds) Insulin Detemir 100 UNIT/ML Subcutaneous Solution (Levemir) Inject 15 Units before bedtime under the skin. 1 Each 12 oxyCODONE-Acetaminophen 5-325 MG Oral Tablet (Percocet) Take 1 Tablet by mouth every 4 hours as needed for Pain, Severe or Pain, Breakthrough. 6 Tablet 0 Naloxone HCl 4 MG/0.1ML Nasal Liquid (Narcan Nasal) Administer 1 spray into 1 nostril for suspectedopioid overdose. Seek immediate medical attention. [email or web address]://[email or web address]/[email or web address]?v=[email or web address] 1 Each 3 No current facility-administered medications for this visit. Allergies Review of patient's allergies indicates: Allergen Reactions Ivp Dye Hives Prinivil [Lisinopril] Edema Other Angioedema Review of Systems Negative for constitutional, heart, lung, liver, kidney, digestive, hematologic, neurologic, rheumatologic, or endocrine complaints except as per history of present illness and past medical history Physical Exam There were no vitals taken for this visit. General: This is a healthy appearing female who appears her stated age. The patient is alert and appropriately verbally conversant without hoarseness. Face: The face was inspected and no cutaneous masses or lesions were visualized. There was no erythema or edema noted. Facial movement was symmetric without weakness. No skin lesions were detected. Eyes: Extra-ocular muscle function was intact. No nystagmus was observed. Pupils were equal. Ears: Examination of the ears revealed that the auricles were normally formed with no lesions. The right external auditory canal was WNL. The right TM had a small central perforation. The right middle ear space was WNL. The left external auditory canal was WNL. The left TM was WNL. The left middle ear space was WNL Assessment and Plan: Perforation of right tympanic membrane (Primary) Plan: Findings and recommendations were discussed with the patient. Pertinent provider notes, labs,and imaging were reviewed. Follow-up in 3 months for recheck of right TM perforation. Gary Kilgore PA-C 01/22/2023 8:29 AM documented in this encounter Plan of Treatment Upcoming Encounters Date Type Specialty Care Team Description 02/14/2023 Hospital Encounter Endoscopy Hanny Graham, DO [address] [place] [id number] 02/14/2023 Surgery Endoscopy Hanny Graham, DO [address] [place] [id number] COLONOSCOPY FLEXIBLE PROXIMAL DIAGNOSTIC Scheduled Procedures Name Priority Associated Diagnoses Date/Ti me COLONOSCOPY FLEXIBLE PROXIMAL DIAGNOSTIC History of colon polyps 02/14/2023 10:00 AM EDT Health Maintenance Due Date Last Done Comments Pneumococcal Vaccine: 65+ Years (1 - PCV) 1952 Depression Screening, Annual for Pts 12 and Over 1958 Albumin/Creatinine Ratio 1964 DIABETES-EYE EXAM 1964 DIABETES-FOOT EXAM 1964 Hepatitis C Screening 1964 DTaP,Tdap,and Td Vaccines (1 - Tdap) 1965 VITAMIN D LEVEL ONCE IN A LIFETIME-USE SMARTSET# [id number] 1986 DXA Scan 1996 Zoster Vaccines (1 of 2) 1996 COLONOSCOPY-EVERY 3 YRS AGES 18-100 08/02/2017 08/02/2014, 08/02/2014, 08/23/2011, Additional history exists HbA1c 12/26/2021 06/28/2021, 06/28/2021 TSH 06/28/2022 06/28/2021, 04/0 11/2019, 04/24/2019, Additional history exists Influenza Vaccine (FLU shot) (#1) 2023 04/22/2019 GFR 11/11/2023 11/10/2022, 06/04, 06/28/2021, Additional history exists COVID-19 Vaccine Completed 04/13/2022 GARDASIL-HPV IMMUNIZATION SERIES Aged Out No longer eligible based on patient's age to complete this topic Hepatitis B Aged Out No longer eligi ble based on patient's age to complete this topic MENINGOCOCCAL (MENACTRA/MENVEO) Aged Out No longer eligible based on patient's age to complete this topic documented as of this encounter Medical Devices Not on filedocumented as of this encounter Visit Diagnoses Diagnosis Perforation of right tympanic membrane- Primary Perforation of tympanic membrane, unspecified History of colon polyps Personal history of colonic polyps documented in this encounter Advance Directives Latest Code Status on File Code Status Date Activated Date Inactivated Comments No Code 06/28/2021 3:36 AM 06/29/2021 8:55 PM This order reflects the patients wishes and were consensually agreed upon. Question Answer Comments Discussion of Advance Directives occurred with: Patient Care Teams Drilling Fluids Specialist Relationship Specialty Start Date End Date Agustín Jarvis MD [address] [place] [address] PCP - General 03/20/02 documented as of this encounter
--- OUTSIDE RECORDS SUMMARY | 2023-01-31 23:07 | External Medical Summary | Summary of Care ---
Author Name Unknown Organization [facility] Address [address] [place] [address] Phone [phone] Care Team Providers Care Self Defense Instructor Name Role Phone Agustín Jarvis MD Primary Care Provider [phone] Reason for Referral * Evaluate & Treat - Unlimited Visits (Within 10 days (routine)) - Authorized Specialty Diagnoses / Procedures Referred By Alayna blackburn Referred To Contact Neurological Surgery Diagnoses Cerebral aneurysm, nonruptured Bean Infante DO [address] [place] [address] Referral ID Status Reason Start Date Expiration Date Visits Requested Visits Authorized [id number] Authorized Specialty Services Required 11/11/2022 [id number] Question Answer Referral Priority Within 10 days (routine) What condition is the patient being seen for? Cerebrovascular Comments Discharge Order Reason for Visit * Reason Comments Facial Pain * Auth/Cert Specialty Diagnoses / Procedures Referred By Alayna blackburn Referred To Contact Referral ID Status Reason Start Date Expiration Date Visits Re quested Visits Authorized [id number] Encounter Details Date Type Department Care Team Description 11/10/2022 - 11/11/[address] [facility] [address] [facility] [address] Cornel Raymond MD [address] [facility] [place] [address] Bean Infante DO [address] [facility] [address] Neck pain (Primary Dx); Cerebral aneurysm, nonruptured Allergies Active Allergy Reactions Severity Noted Date Comments Ivp Dye Hives 08/05/2006 Lisinopril Edema Other 06/01/2010 Angioedema documented as of this encounter (statuses as of 11/11/2022) Medications Medication Sig Dispensed Refills Start Date [...] suspected opioid overdose. Seek immediate medical attention. [email or web address]?[email or web address] 1 Each 3 11/11/2022 Active documented as of this encounter (statuses as of 11/11/2022) Active Problems Problem Noted Date Osteoporosis 07/17/2022 [...] as of this encounter (statuses as of 11/11/2022) Social History Tobacco Use Types Packs/Day Years [...] on file documented as of this encounter Last Filed Vital Signs Vital Sign Reading Time Taken Comments Blood Pressure 180/76 11/11/2022 1:00 AM EDT Pulse 70 11/11/2022 1:00 AM EDT Temperature 36.2 C (97.2 F) 11/10/2022 8:15 PM ED T Respiratory Rate 12 11/11/2022 1:00 AM EDT Oxygen Saturation 99% 11/10/2022 8:15 PM EDT Inhaled Oxygen Concentration - - Weight 64.4 kg (142 lb) 11/10/2022 8:15 PM EDT Height - - Body Mass Index 23.63 10/22/2022 7:58 AM EDT documented in this encounter Functional Status Functional Status Response [...] (15 years old or older) Yes 06/28/19 22 Cognitive Status Response Date of Assessm ent Because of a physical, menta l, or emotional condition, do you have serious difficulty concentrating, remembering, or making decisions? (5 years old or older No 06/28/2021 documented as of this encounter Discharge Instructions * Discharge Instructions* Bean Infante DO - 11/11/2022 1:50 AM EDT Your imaging did not reveal any concerning acute abnormalities but you do have an aneurism your brain you will need to follow-up with neuro surgery about. If you were ever to develop a severe sudden headache especially with any vision changes numbness or weakness you need to seek immediate medical care. Please follow-up with your primary care doctor in regards to your continued TMJ pain. If you develop any new or concerning symptoms such as chest pain, difficulty breathing, fevers, persistent nausea/vomiting, inability to tolerate oral hydration, severe abdominal pain, severely worsening jaw pain, inability to open your jaw, numbness, weakness, or any other concerning symptoms please return to the emergency department for evaluation. Primarily use Tylenol to help with discomfort but be sure to follow the instructions. Only use Percocet for breakthrough pain. There is 325 mg of Tylenol in Percocet so make sure you are not taking more than 4000 mg of Tylenol per day. Do not operate any machinery if you are taking the Percocet. documented in this encounter ED Notes * Bean Infante DO - 11/11/2022 1:51 AM EDT MEDICAL DECISION MAKING Nursing notes and vital signs were reviewed. ED Course as of 11/11/22 0151 Sat Nov 10, 2022 2324 77 F, facial and neck pain, more pain in neck with pulsatile mass, and has had surgery on carotids, pain meds given, BP elevated, ear and oral meds okay [ ] CTA - needs vasc if something there [ ] likely home if no issues on CT [AT] Amy Nov 11, 2022 0047 This patient's angiogram reveals an intracranial aneurysms but the patient has no headache or lightheadedness. She continues to have some jaw pain but it has improved. Her blood pressure has also improved but is still hypertensive. Mild worsening of her kidney function but she appears comfortable resting in bed without signs of distress. I am going to encourage her to follow-up with her primary care doctor and continue using Tylenol. [AT] [address] Yanez who recommended outpatient neurosurgery follow-up with the findings on the CTA/aneurism in the head. Patient will now be discharged. I will give her a few pills of Percocet to help with her breakthrough pain and encouraged her to follow-up with her doctors. She does havea trace amount of an JOVANY but is tolerating oral hydration and she agrees with the plan for discharge. [AT] ED Course User Index [AT] Bean Infante DO Clinical Impressions Neck pain Cerebral aneurysm, nonruptured Disposition Discharged. The patient's condition at disposition was: stable. Discharge Medications Disp Refills Start End oxyCODONE-Acetaminophen 5-325 MG Oral Tablet (Percocet) 6 Tablet 0 11/11/2022 Sig - Route: Take 1 Tablet by mouth every 4 hours as needed for Pain, Severe or Pain, Breakthrough.- Oral Class: Site Administration Earliest Fill Date: 11/11/2022 Renewals Renewal requests to authorizing provider (Bean Infante DO) <b>prohibited</b> Naloxone HCl 4 MG/0.1ML Nasal Liquid (Narcan Nasal) 1 Each 3 11/11/2022 Sig: Administer 1 spray into 1 nostril for suspected opioid overdose. Seek immediate medical attention. [email or web address] Class: ePrescribing Notes to Pharmacy: Can substitute alternate high dose Naloxone as insurance coverage permits. Renewals Renewal requests to authorizing provider (Bean Infante DO) <b>prohibited</b> I have personally dispensed to go medications to the patient for home use. These to go mediations are listed above with a class of site administration. These medications were labeled with the patient's name and instructions for use. Cornel Raymond * Cornel Raymond MD - 11/10/2022 9:01 PM EDT HISTORY OF PRESENT ILLNESS Trista Almaraz is a 77 year old female who presents to the ED for evaluation of Facial Pain. The patient was seen at 11/10/22 2100. Patient has been having left-sided facial pain for 2 weeks. She was diagnosed with TMJ. She was told to use Tylenol. She complains of the pain radiating to her ear. She complains of the pain now being associated with lumps in her neck. 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 PHYSICAL EXAM Initial Vitals (see all): BP 193/84 | Pulse 66 | Resp 18 | Temp 97.2 | O2 99 %Weight 64.41 kg | Height 165.1 cm | BMI 23.63 kg/m2 Initial Pain Assessment (see all): 10 (severe pain)/10, location: l jaw,ear, and neck ([facility] Adult Scale 0-10) General: Alert. appropriate for age. Appears uncomfortable Skin: Warm, dry. Head: Atraumatic. Neck: trachea midline. No distended neck veins supple This patient has bilateral carotid endarterectomy scars. She has a pulsating palpable mass in the left neck just medial to the carotid endarterectomy scar under the angle of the jaw. She says this isthe place of the pain and it is tender. Eye: Normal conjunctiva. PERRL, EOMI, Ears, nose, mouth and throat: airway patent. No inflammation Tympanic membranes are pearly celaya. There appears to be a perforation to the right tympanic membrane Dentition is intact and does not appear to be tender There is some tenderness to the left TM joint but this appears to be less severe Cardiovascular: Normal peripheral perfusion. Regular rate and rhythm without murmurs or extra sounds. No distended neck veins. . Respiratory: no respiratory distress. The lungs are clear to auscultation without rales wheezes or rhonchi. Breath sounds equal and present bilaterally. Gastrointestinal: Non distended. Abdomen is soft and nontender. No guarding. No rebound. No organomegaly. Musculoskeletal: BKA right leg Neurological: No focal neurological deficit observed. alert. Cranial nerves 2-12 are intact. Pharmacy General Manager strength equal. [id number] intact. Normal motor and sensory exam to arms and legs. Knee jerk reflexes equal and +2. Psychiatric: Cooperative. Differential diagnosis Left jaw pain, TMJ, carotid aneurysm or dissection PROCEDURES AND TREATMENTS ED Orders | ED Results MEDICAL DECISION MAKING Nursing notes and vital signs were reviewed. ED Course as of 11/11/22 0148 Sat Nov 10, 2022 2324 77 F, facial and neck pain, more pain in neck with pulsatile mass, and has had surgery on carotids, pain meds given, BP elevated, ear and oral meds okay [ ] CTA - needs vasc if something there [ ] likely home if no issues on CT [AT] Amy Nov 11, 2022 0047 This patient's angiogram reveals an intracranial aneurysms but the patient has no headache or lightheadedness. She continues to have some jaw pain but it has improved. Her blood pressure has also improved but is still hypertensive. Mild worsening of her kidney function but she appears comfortable resting in bed without signs of distress. I am going to encourage her to follow-up with her primary care doctor and continue using Tylenol. [AT] [address] Yanez who recommended outpatient neurosurgery follow-up with the findings on the CTA/aneurism in the head. Patient will now be discharged. I will give her a few pills of Percocet to help with her breakthrough pain and encouraged her to follow-up with her doctors. She does havea trace amount of an JOVANY but is tolerating oral hydration and she agrees with the plan for discharge. [AT] ED Course User Index [AT] Bean Infante, DO Pulsating mass left neck next to the carotid Mild tenderness left TM joint Clinical Impressions Neck pain Disposition No disposition documented. This patient will be turned over to my colleague at change of watch for evaluation, diagnosis, and disposition Cornel Raymond * Emily García RN - 11/10/2022 8:17 PM EDT Pt has had l sided facial pain for 2 weeks was dx with tmj, pt states pain is worsening and feels like her lymph nodes are swelling documented in this encounter Miscellaneous Notes * ED Media Services Specialist Note - Elysia Max RN - 11/11/2022 1:58 AM EDT Pt given d/c instructions and they verbalized understanding. Advised to follow up with PCP and neurosurgeon and to return here if s/s worsen. PIV removed, cath tip intact. Pt ambulated out without difficulty. * ED Media Services Specialist Note - Elysia Max RN - 11/10/2022 10:00 PM EDT Pt here from home with L sided jaw and neck pain that started 2 weeks ago. Reports that she was seen for a hole in her R eardrum and "they found the TMJ." Says that they told her to do exercises and take tylenol. Is not able to take NSAIDS d/t anticoag usage. Says that she has had bilateral carotid catheterizations. Says that she is also on 5 different BP meds, did not take her evening doses. Pt is hypertensive here with BPs 200s/80s. Pt does have a lump under her jaw on the L side that is pulsating. Denies CP, SOB, abd pain, n/v/d, fever/chills, cough, congestion. Pt is AOx3, respirations even and unlabored, heart regular, lungs clear, abd soft, non distended, non tender. Pt resting on stretcher with call armijo in reach. documented in this encounter Plan of Treatment Upcoming Encounters Date Type Specialty Care Team Description 01/22/2023 Office Visit Otolaryngology Gary Kilgore PA-C [address] [place] [address] 02/14/2023 Hospital Encounter Endoscopy Hanny Graham, DO [address] [place] [address] 02/14/2023 Surgery Endoscopy Hanny Graham, DO [address] [place] [address] COLONOSCOPY FLEXIBLE PROXIMAL DIAGNOSTIC Scheduled Procedures Name Priority Associated Diagnoses Date/Ti me COLONOSCOPY FLEXIBLE PROXIMAL DIAGNOSTIC History of colon polyps 02/14/2023 10:00 AM EDT Scheduled Referrals Name Type Priority Associated Diagnoses Orde r Schedule NEUROSURGERY ADULT REFERRAL OP Referral Within 10 days (routine) Cerebral aneurysm, nonruptured Ordered: 11/11/2022 Health Maintenance Due Date Last Done Comments Pneumococcal Vaccine: 65+ Years (1 - PCV) 1952 Depression Screening, Annual for Pts 12 and Over 1958 Albumin/Creatinine Ratio 1964 DIABETES-EYE EXAM 1964 DIABETES-FOOT EXAM 1964 Hepatitis C Screening 1964 DTaP,Tdap,and Td Vaccines (1 - Tdap) 1965 VITAMIN D LEVEL ONCE IN A LIFETIME-USE SMARTSET# 60470 1986 DXA Scan 1996 Zoster Vaccines (1 of 2) 1996 COLONOSCOPY-EVERY 3 YRS AGES 18-100 08/02/2017 08/02/2014, 08/02/2014, 08/23/2011, Additional history exists HbA1c 12/26/2021 06/28/2021, 06/28/2021 TSH 06/28/2022 06/28/2021, 04/0 11/2019, 04/24/2019, Additional history exists COVID-19 Vaccine (2 - Pfizer series) 08/11/2022 04/13/2022 Influenza Vaccine (FLU shot) (Season Ended) 2023 04/22/2019 GFR 11/11/2023 11/10/2022, 06/04, 06/28/2021, Additional history exists GARDASIL-HPV IMMUNIZATION SERIES Aged Out No longer eligible based on patient's age to complete this topic Hepatitis B Aged Out No longer eligi ble based on patient's age to complete this topic MENINGOCOCCAL (MENACTRA/MENVEO) Aged Out No longer eligible based on patient's age to complete this topic documented as of this encounter Medical Devices Not on filedocumented as of this encounter Procedures Procedure Name Priority Date/Time Associated Diagnosis Comments CTA NECK W CONTRAST STAT 11/10/2022 1 0:45 PM EDT CTA HEAD W CONTRAST STAT 11/10/2022 1 0:45 PM EDT PT INR STAT 11/10/2022 9:58 PM EDT DIFFERENTIAL, AUTOMATED STAT 11/10/2022 9:19 PM EDT BASIC METABOLIC PANEL STAT 11/10/2022 9:19 PM EDT CBC WITH WBC DIFFERENTIAL STAT 11/10/2022 9:19 PM EDT CBC STAT 11/10/2022 9:19 PM EDT documented in this encounter Results * CTA HEAD (11/10/2022 10:45 PM EDT) Anatomical Region Laterality Modality Head, Neck Computed Tomogra phy 11/10/2022 10:2 6 PM EDT Impressions 11/11/2022 12:02 AM EDT IMPRESSION: 1. 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 There is good distal flow. 2. 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 There is good distal flow. 3. 2 x 2 mm aneurysm arising medially from the junction of the right anterior cerebral artery and anterior communicating artery. This is in the expected location of the A1 segment. 4. The remainder of the vascular structures are unremarkable. There is no other significant stenosis or aneurysm. There is no occlusion. PROCEDURE INFORMATION: Exam: CTA Neck Without And With Contrast Exam date and time: 11/10/2022 10:26 PM Age: 77 years old Clinical indication: Pain; Other: Neck; Additional info: Neck pain; No applicable indication TECHNIQUE: Imaging protocol: Computed tomographic angiography of the neck without and with contrast. 3D rendering (Not supervised by radiologist): MIP and/or 3D reconstructed images were created by the technologist. Radiation optimization: All CT scans at this facility use at least one of these dose optimization techniques: automated exposure control; mA and/or kV adjustment per patient size (includes targeted exams where dose is matched to clinical indication); or iterative reconstruction. Contrast material: OPTIRAY 350; Contrast volume: 100 ml; Contrast route: INTRAVENOUS (IV); REPORTING DATA: Count of CT and Cardiac NM exams in prior 12 months: This patient has received 0 known CTs and 0 known cardiac nuclear medicine studies in the 12 months prior to the current study. COMPARISON: DX XR CHEST 2 VIEWS 09/14/2022 9:08 AM FINDINGS: Right common carotid artery: No stenosis. No dissection or occlusion. Right internal carotid artery: Atherosclerotic disease of the very distal right sided internal carotid artery the results in stenosis measuring 60%. There is good distal flow. Right external carotid artery: No occlusion or stenosis of the origin. Left common carotid artery: No stenosis. No dissection or occlusion. Left internal carotid artery: No significant stenosis. No dissection or occlusion. Left external carotid artery: No occlusion or stenosis of the origin. Right vertebral artery: No stenosis. No dissection or occlusion. Left vertebral artery: No stenosis. No dissection or occlusion. Soft tissues: Normal. No significant soft tissue swelling. Bones/joints: No acute fracture. IMPRESSION: 1. Atherosclerotic disease of the very distal right sided internal carotid artery the results in stenosis measuring 60%. There is good distal flow. 2. The remainder of the vascular structures are unremarkable. There is no other significant stenosis. There is no occlusion or aneurysm. REFERENCES: NASCET CRITERIA. The degree of stenosis in the cervical segment of the internal carotid artery is based on NASCET criteria. Normal is no stenosis. Mild is less than 50% stenosis. Moderate is 50-69% stenosis. Severe is 70% to 99% stenosis. Total occlusion is no detectable patent lumen. THIS DOCUMENT HAS BEEN ELECTRONICALLY SIGNED BY MILTON BROCK MD Narrative 11/11/2022 12:02 AM EDT PROCEDURE INFORMATION: Exam: CTA Head Without And With Contrast, Arteriography Exam date and time: 11/10/2022 10:26 PM Age: 77 years old Clinical indication: Pain; Other: Neck; Additional info: Neck pain; No applicable indication TECHNIQUE: Imaging protocol: Computed tomographic angiography of the head without and with contrast. Exam focused on the arteries. 3D rendering (Not supervised by radiologist): MIP and/or 3D reconstructed images were created by the technologist. Radiation optimization: All CT scans at this facility use at least one of these dose optimization techniques: automated exposure control; mA and/or kV adjustment per patient size (includes targeted exams where dose is matched to clinical indication); or iterative reconstruction. Contrast material: OPTIRAY 350; Contrast volume: 100 ml; Contrast route: INTRAVENOUS (IV); REPORTING DATA: Count of CT and Cardiac NM exams in prior 12 months: This patient has received 0 known CTs and 0 known cardiac nuclear medicine studies in the 12 months prior to the current study. COMPARISON: CT HEAD WITHOUT CONTRAST 01/22/2016 10:09 AM FINDINGS: ANTERIOR CIRCULATION: Right internal carotid artery: Intracranial segment is patent with no significant stenosis or occlusion. No aneurysm. Right middle cerebral artery: No occlusion or significant stenosis. No aneurysm. Right anterior cerebral artery: 2 x 2 mm aneurysm arising medially from the junction of the right anterior cerebral artery and anterior communicating artery. This is in the expected location of the A1 segment. Left internal carotid artery: Intracranial segment is patent with no significant stenosis. No aneurysm. Left middle cerebral artery: No occlusion or significant stenosis. No aneurysm. Left anterior cerebral artery: No occlusion or significant stenosis. No aneurysm. POSTERIOR CIRCULATION: Right vertebral artery: No occlusion or significant stenosis. No aneurysm. 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 There is good distal flow. Basilar artery: No occlusion or significant stenosis. No aneurysm. Right posterior cerebral artery: No occlusion or significant stenosis. No aneurysm. Left posterior cerebral artery: No occlusion or significant stenosis. No aneurysm. HEAD: Brain: Normal. No hemorrhage. Unremarkable white matter. No mass effect. Cerebral ventricles: Normal. No ventriculomegaly. Bones/joints: Unremarkable. No acute fracture. Paranasal sinuses: Visualized sinuses are normal. No fluid levels. Mastoid air cells: Visualized mastoids are normal. No mastoid effusion. Soft tissues: Unremarkable. Other findings: Atherosclerotic disease of the right sided cavernous and clinoid internal carotid artery the results in stenosis measuring 80%. There is good distal flow. Procedure Note Milton Brock MD - 11/11/2022 PROCEDURE INFORMATION: Exam: CTA Head Without And With Contrast, Arteriography Exam date and time: 11/10/2022 10:26 PM Age: 77 years old Clinical indication: Pain; Other: Neck; Additional info: Neck pain; No applicable indication TECHNIQUE: Imaging protocol: Computed tomographic angiography of the head without andwith contrast. Exam focused on the arteries. 3D rendering (Not supervised by radiologist): MIP and/or 3D reconstructed images were created by the technologist. Radiation optimization: All CT scans at this facility use at least one ofthese dose optimization techniques: automated exposure control; mA and/or kV adjustment per patient size (includes targeted exams where dose is matchedto clinical indication); or iterative reconstruction. Contrast material: OPTIRAY 350; Contrast volume: 100 ml; Contrast route: INTRAVENOUS (IV); REPORTING DATA: Count of CT and Cardiac NM exams in prior 12 months: This patient hasreceived 0 known CTs and 0 known cardiac nuclear medicine studies in the 12 monthsprior to the current study. COMPARISON: CT HEAD WITHOUT CONTRAST 01/22/2016 10:09 AM FINDINGS: ANTERIOR CIRCULATION: Right internal carotid artery: Intracranial segment is patent with no significant stenosis or occlusion. No aneurysm. Right middle cerebral artery: No occlusion or significant stenosis. No aneurysm. Right anterior cerebral artery: 2 x 2 mm aneurysm arising medially fromthe junction of the right anterior cerebral artery and anterior communicating artery. This is in the expected location of the A1 segment. Left internal carotid artery: Intracranial segment is patent with no significant stenosis. No aneurysm. Left middle cerebral artery: No occlusion or significant stenosis. Noaneurysm. Left anterior cerebral artery: No occlusion or significant stenosis. No aneurysm. POSTERIOR CIRCULATION: Right vertebral artery: No occlusion or significant stenosis. No aneurysm. Left vertebral artery: Atherosclerotic disease of the left vertebralartery the results in stenosis measuring 70%. There is good distal flow. Basilar artery: No occlusion or significant stenosis. No aneurysm. Right posterior cerebral artery: No occlusion or significant stenosis. No aneurysm. Left posterior cerebral artery: No occlusion or significant stenosis. No aneurysm. HEAD: Brain: Normal. No hemorrhage. Unremarkable white matter. No mass effect. Cerebral ventricles: Normal. No ventriculomegaly. Bones/joints: Unremarkable. No acute fracture. Paranasal sinuses: Visualized sinuses are normal. No fluid levels. Mastoid air cells: Visualized mastoids are normal. No mastoid effusion. Soft tissues: Unremarkable. Other findings: Atherosclerotic disease of the right sided cavernous and clinoid internal carotid artery the results in stenosis measuring 80%.There is good distal flow. IMPRESSION IMPRESSION: 1. 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 There is good distal flow. 2. Atherosclerotic disease of the right sided cavernous and clinoidinternal carotid artery the results in stenosis measuring 80%. There is good distal flow. 3. 2 x 2 mm aneurysm arising medially from the junction of the rightanterior cerebral artery and anterior communicating artery. This is in the expected location of the A1 segment. 4. The remainder of the vascular structures are unremarkable. There isno other significant stenosis or aneurysm. There is no occlusion. PROCEDURE INFORMATION: Exam: CTA Neck Without And With Contrast Exam date and time: 11/10/2022 10:26 PM Age: 77 years old Clinical indication: Pain; Other: Neck; Additional info: Neck pain; No applicable indication TECHNIQUE: Imaging protocol: Computed tomographic angiography of the neck without andwith contrast. 3D rendering (Not supervised by radiologist): MIP and/or 3D reconstructed images were created by the technologist. Radiation optimization: All CT scans at this facility use at least one ofthese dose optimization techniques: automated exposure control; mA and/or kV adjustment per patient size (includes targeted exams where dose is matchedto clinical indication); or iterative reconstruction. Contrast material: OPTIRAY 350; Contrast volume: 100 ml; Contrast route: INTRAVENOUS (IV); REPORTING DATA: Count of CT and Cardiac NM exams in prior 12 months: This patient hasreceived 0 known CTs and 0 known cardiac nuclear medicine studies in the 12 monthsprior to the current study. COMPARISON: DX XR CHEST 2 VIEWS 09/14/2022 9:08 AM FINDINGS: Right common carotid artery: No stenosis. No dissection or occlusion. Right internal carotid artery: Atherosclerotic disease of the very distalright sided internal carotid artery the results in stenosis measuring 60%. Thereis good distal flow. Right external carotid artery: No occlusion or stenosis of the origin. Left common carotid artery: No stenosis. No dissection or occlusion. Left internal carotid artery: No significant stenosis. No dissection or occlusion. Left external carotid artery: No occlusion or stenosis of the origin. Right vertebral artery: No stenosis. No dissection or occlusion. Left vertebral artery: No stenosis. No dissection or occlusion. Soft tissues: Normal. No significant soft tissue swelling. Bones/joints: No acute fracture. IMPRESSION: 1. Atherosclerotic disease of the very distal right sided internalcarotid artery the results in stenosis measuring 60%. There is good distal flow. 2. The remainder of the vascular structures are unremarkable. There isno other significant stenosis. There is no occlusion or aneurysm. REFERENCES: NASCET CRITERIA. The degree of stenosis in the cervical segment of theinternal carotid artery is based on NASCET criteria. Normal is no stenosis. Mild isless than 50% stenosis. Moderate is 50-69% stenosis. Severe is 70% to 99%stenosis. Total occlusion is no detectable patent lumen. THIS DOCUMENT HAS BEEN ELECTRONICALLY SIGNED BY MILTON BROCK MD Cornel Raymond MD RAD CT * CTA NECK (11/10/2022 10:45 PM EDT) Anatomical Region Laterality Modality Neck, Head, Cspine, Spine Comput ed Tomography 11/10/2022 10:2 6 PM EDT Impressions 11/11/2022 12:02 AM EDT IMPRESSION: 1. 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 There is good distal flow. 2. 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 There is good distal flow. 3. 2 x 2 mm aneurysm arising medially from the junction of the right anterior cerebral artery and anterior communicating artery. This is in the expected location of the A1 segment. 4. The remainder of the vascular structures are unremarkable. There is no other significant stenosis or aneurysm. There is no occlusion. PROCEDURE INFORMATION: Exam: CTA Neck Without And With Contrast Exam date and time: 11/10/2022 10:26 PM Age: 77 years old Clinical indication: Pain; Other: Neck; Additional info: Neck pain; No applicable indication TECHNIQUE: Imaging protocol: Computed tomographic angiography of the neck without and with contrast. 3D rendering (Not supervised by radiologist): MIP and/or 3D reconstructed images were created by the technologist. Radiation optimization: All CT scans at this facility use at least one of these dose optimization techniques: automated exposure control; mA and/or kV adjustment per patient size (includes targeted exams where dose is matched to clinical indication); or iterative reconstruction. Contrast material: OPTIRAY 350; Contrast volume: 100 ml; Contrast route: INTRAVENOUS (IV); REPORTING DATA: Count of CT and Cardiac NM exams in prior 12 months: This patient has received 0 known CTs and 0 known cardiac nuclear medicine studies in the 12 months prior to the current study. COMPARISON: DX XR CHEST 2 VIEWS 09/14/2022 9:08 AM FINDINGS: Right common carotid artery: No stenosis. No dissection or occlusion. Right internal carotid artery: Atherosclerotic disease of the very distal right sided internal carotid artery the results in stenosis measuring 60%. There is good distal flow. Right external carotid artery: No occlusion or stenosis of the origin. Left common carotid artery: No stenosis. No dissection or occlusion. Left internal carotid artery: No significant stenosis. No dissection or occlusion. Left external carotid artery: No occlusion or stenosis of the origin. Right vertebral artery: No stenosis. No dissection or occlusion. Left vertebral artery: No stenosis. No dissection or occlusion. Soft tissues: Normal. No significant soft tissue swelling. Bones/joints: No acute fracture. IMPRESSION: 1. Atherosclerotic disease of the very distal right sided internal carotid artery the results in stenosis measuring 60%. There is good distal flow. 2. The remainder of the vascular structures are unremarkable. There is no other significant stenosis. There is no occlusion or aneurysm. REFERENCES: NASCET CRITERIA. The degree of stenosis in the cervical segment of the internal carotid artery is based on NASCET criteria. Normal is no stenosis. Mild is less than 50% stenosis. Moderate is 50-69% stenosis. Severe is 70% to 99% stenosis. Total occlusion is no detectable patent lumen. THIS DOCUMENT HAS BEEN ELECTRONICALLY SIGNED BY MILTON BROCK MD Narrative 11/11/2022 12:02 AM EDT PROCEDURE INFORMATION: Exam: CTA Head Without And With Contrast, Arteriography Exam date and time: 11/10/2022 10:26 PM Age: 77 years old Clinical indication: Pain; Other: Neck; Additional info: Neck pain; No applicable indication TECHNIQUE: Imaging protocol: Computed tomographic angiography of the head without and with contrast. Exam focused on the arteries. 3D rendering (Not supervised by radiologist): MIP and/or 3D reconstructed images were created by the technologist. Radiation optimization: All CT scans at this facility use at least one of these dose optimization techniques: automated exposure control; mA and/or kV adjustment per patient size (includes targeted exams where dose is matched to clinical indication); or iterative reconstruction. Contrast material: OPTIRAY 350; Contrast volume: 100 ml; Contrast route: INTRAVENOUS (IV); REPORTING DATA: Count of CT and Cardiac NM exams in prior 12 months: This patient has received 0 known CTs and 0 known cardiac nuclear medicine studies in the 12 months prior to the current study. COMPARISON: CT HEAD WITHOUT CONTRAST 01/22/2016 10:09 AM FINDINGS: ANTERIOR CIRCULATION: Right internal carotid artery: Intracranial segment is patent with no significant stenosis or occlusion. No aneurysm. Right middle cerebral artery: No occlusion or significant stenosis. No aneurysm. Right anterior cerebral artery: 2 x 2 mm aneurysm arising medially from the junction of the right anterior cerebral artery and anterior communicating artery. This is in the expected location of the A1 segment. Left internal carotid artery: Intracranial segment is patent with no significant stenosis. No aneurysm. Left middle cerebral artery: No occlusion or significant stenosis. No aneurysm. Left anterior cerebral artery: No occlusion or significant stenosis. No aneurysm. POSTERIOR CIRCULATION: Right vertebral artery: No occlusion or significant stenosis. No aneurysm. 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 There is good distal flow. Basilar artery: No occlusion or significant stenosis. No aneurysm. Right posterior cerebral artery: No occlusion or significant stenosis. No aneurysm. Left posterior cerebral artery: No occlusion or significant stenosis. No aneurysm. HEAD: Brain: Normal. No hemorrhage. Unremarkable white matter. No mass effect. Cerebral ventricles: Normal. No ventriculomegaly. Bones/joints: Unremarkable. No acute fracture. Paranasal sinuses: Visualized sinuses are normal. No fluid levels. Mastoid air cells: Visualized mastoids are normal. No mastoid effusion. Soft tissues: Unremarkable. Other findings: Atherosclerotic disease of the right sided cavernous and clinoid internal carotid artery the results in stenosis measuring 80%. There is good distal flow. Procedure Note Milton Brock MD - 11/11/2022 PROCEDURE INFORMATION: Exam: CTA Head Without And With Contrast, Arteriography Exam date and time: 11/10/2022 10:26 PM Age: 77 years old Clinical indication: Pain; Other: Neck; Additional info: Neck pain; No applicable indication TECHNIQUE: Imaging protocol: Computed tomographic angiography of the head without andwith contrast. Exam focused on the arteries. 3D rendering (Not supervised by radiologist): MIP and/or 3D reconstructed images were created by the technologist. Radiation optimization: All CT scans at this facility use at least one ofthese dose optimization techniques: automated exposure control; mA and/or kV adjustment per patient size (includes targeted exams where dose is matchedto clinical indication); or iterative reconstruction. Contrast material: OPTIRAY 350; Contrast volume: 100 ml; Contrast route: INTRAVENOUS (IV); REPORTING DATA: Count of CT and Cardiac NM exams in prior 12 months: This patient hasreceived 0 known CTs and 0 known cardiac nuclear medicine studies in the 12 monthsprior to the current study. COMPARISON: CT HEAD WITHOUT CONTRAST 01/22/2016 10:09 AM FINDINGS: ANTERIOR CIRCULATION: Right internal carotid artery: Intracranial segment is patent with no significant stenosis or occlusion. No aneurysm. Right middle cerebral artery: No occlusion or significant stenosis. No aneurysm. Right anterior cerebral artery: 2 x 2 mm aneurysm arising medially fromthe junction of the right anterior cerebral artery and anterior communicating artery. This is in the expected location of the A1 segment. Left internal carotid artery: Intracranial segment is patent with no significant stenosis. No aneurysm. Left middle cerebral artery: No occlusion or significant stenosis. Noaneurysm. Left anterior cerebral artery: No occlusion or significant stenosis. No aneurysm. POSTERIOR CIRCULATION: Right vertebral artery: No occlusion or significant stenosis. No aneurysm. Left vertebral artery: Atherosclerotic disease of the left vertebralartery the results in stenosis measuring 70%. There is good distal flow. Basilar artery: No occlusion or significant stenosis. No aneurysm. Right posterior cerebral artery: No occlusion or significant stenosis. No aneurysm. Left posterior cerebral artery: No occlusion or significant stenosis. No aneurysm. HEAD: Brain: Normal. No hemorrhage. Unremarkable white matter. No mass effect. Cerebral ventricles: Normal. No ventriculomegaly. Bones/joints: Unremarkable. No acute fracture. Paranasal sinuses: Visualized sinuses are normal. No fluid levels. Mastoid air cells: Visualized mastoids are normal. No mastoid effusion. Soft tissues: Unremarkable. Other findings: Atherosclerotic disease of the right sided cavernous and clinoid internal carotid artery the results in stenosis measuring 80%.There is good distal flow. IMPRESSION IMPRESSION: 1. 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 There is good distal flow. 2. Atherosclerotic disease of the right sided cavernous and clinoidinternal carotid artery the results in stenosis measuring 80%. There is good distal flow. 3. 2 x 2 mm aneurysm arising medially from the junction of the rightanterior cerebral artery and anterior communicating artery. This is in the expected location of the A1 segment. 4. The remainder of the vascular structures are unremarkable. There isno other significant stenosis or aneurysm. There is no occlusion. PROCEDURE INFORMATION: Exam: CTA Neck Without And With Contrast Exam date and time: 11/10/2022 10:26 PM Age: 77 years old Clinical indication: Pain; Other: Neck; Additional info: Neck pain; No applicable indication TECHNIQUE: Imaging protocol: Computed tomographic angiography of the neck without andwith contrast. 3D rendering (Not supervised by radiologist): MIP and/or 3D reconstructed images were created by the technologist. Radiation optimization: All CT scans at this facility use at least one ofthese dose optimization techniques: automated exposure control; mA and/or kV adjustment per patient size (includes targeted exams where dose is matchedto clinical indication); or iterative reconstruction. Contrast material: OPTIRAY 350; Contrast volume: 100 ml; Contrast route: INTRAVENOUS (IV); REPORTING DATA: Count of CT and Cardiac NM exams in prior 12 months: This patient hasreceived 0 known CTs and 0 known cardiac nuclear medicine studies in the 12 monthsprior to the current study. COMPARISON: DX XR CHEST 2 VIEWS 09/14/2022 9:08 AM FINDINGS: Right common carotid artery: No stenosis. No dissection or occlusion. Right internal carotid artery: Atherosclerotic disease of the very distalright sided internal carotid artery the results in stenosis measuring 60%. Thereis good distal flow. Right external carotid artery: No occlusion or stenosis of the origin. Left common carotid artery: No stenosis. No dissection or occlusion. Left internal carotid artery: No significant stenosis. No dissection or occlusion. Left external carotid artery: No occlusion or stenosis of the origin. Right vertebral artery: No stenosis. No dissection or occlusion. Left vertebral artery: No stenosis. No dissection or occlusion. Soft tissues: Normal. No significant soft tissue swelling. Bones/joints: No acute fracture. IMPRESSION: 1. Atherosclerotic disease of the very distal right sided internalcarotid artery the results in stenosis measuring 60%. There is good distal flow. 2. The remainder of the vascular structures are unremarkable. There isno other significant stenosis. There is no occlusion or aneurysm. REFERENCES: NASCET CRITERIA. The degree of stenosis in the cervical segment of theinternal carotid artery is based on NASCET criteria. Normal is no stenosis. Mild isless than 50% stenosis. Moderate is 50-69% stenosis. Severe is 70% to 99%stenosis. Total occlusion is no detectable patent lumen. THIS DOCUMENT HAS BEEN ELECTRONICALLY SIGNED BY MILTON BROCK MD Cornel Ryamond MD RAD CT * PT INR (11/10/2022 9:58 PM EDT) Prothrombin Time 13.4 11.6 - 15.2 seconds 11/10/2022 10:21 PM EDT [facility] INR 1.0 0.8 - 1.2 11/10/2022 10:21 PM EDT [facility] Blood Venous blood specimen / Unknown Venipuncture / Unknown 11/10/2022 9:58 PM EDT 11/10/2022 10:01 PM EDT Narrative LAB[facility] - 11/10/2022 10:21 PM EDT Warfarin Therapy INR: 2.0-3.0 conventional anticoagulation INR: 2.5-3.5 high intensity anticoagulation Cornel Raymond MD LAB BLOOD ORDERABLES LABORATORY [address] [address] * (ABNORMAL) DIFFERENTIAL, AUTOMATED (11/10/2022 9:19 PM EDT) Pathologist [facility] WBC 8.76 4.00 - 10.80 K/uL 11/10/2022 9:27 PM EDT LABORATORY GL Neutrophils % 46.1 40.0 - 75.0 % 11/10/2022 9:27 PM EDT LABORATORY GL Lymphocytes % 44.9(H) 18.0 - 42.0 % 11/10/2022 9:27 PM EDT [facility] Monocytes % 5.6 1.0 - 11.0 % 11/10/2022 9:27 PM EDT LABORATORY GL Eosinophils % 2.9 0.0 - 6.0 % 11/10/2022 9:27 PM EDT [facility] Basophils % 0.2 0.0 - 2.0 % 11/10/2022 9:27 PM EDT [facility] Immature Granulocytes % 0.3 0.0 - 2.0 % 11/10/2022 9:27 PM EDT [facility] Absolute Neutrophils 4.04 1.80 - 7.70 K/uL 11/10/2022 9:27 PM EDT [facility] Absolute Lymphocytes 3.93 1.00 - 4.80 K/ul 11/10/2022 9:27 PM EDT [facility] Absolute Monocytes 0.49 0.00 - 1.10 K/uL 11/10/2022 9:27 PM EDT [facility] Absolute Eosinophils 0.25 0.00 - 0.70 K/uL 11/10/2022 9:27 PM EDT [facility] Absolute Basophils 0.02 0.00 - 0.20 K/uL 11/10/2022 9:27 PM EDT [facility] Absolute Immature Granulocytes 0.03 0.00 - 0.20 K/uL 11/10/2022 9:27 PM EDT [facility] Blood Venous blood specimen / Unknown Venipuncture / Unknown 11/10/2022 9:19 PM EDT 11/10/2022 9:24 PM EDT Cornel Raymond MD LAB BLOOD ORDERABLES LABORATORY [address] [address] * CBC (11/10/2022 9:19 PM EDT) WBC 8.76 4.00 - 10.80 K/uL 11/10/2022 9:27 PM EDT [facility] RBC 4.25 3.85 - 5.15 M/uL 11/10/2022 9:27 PM EDT [facility] HGB 13.4 12.0 - 15.3 g/dL 11/10/2022 9:27 PM EDT [facility] HCT 39.9 36.0 - 45.2 % 11/10/2022 9:27 PM EDT [facility] MCV 93.9 81.5 - 97.5 fL 11/10/2022 9:27 PM EDT [facility] MCH 31.5 27.0 - 34.0 pg 11/10/2022 9:27 PM EDT [facility] MCHC 33.6 32.0 - 36.0 g/dL 11/10/2022 9:27 PM EDT [facility] RDW 13.4 11.5 - 15.5 % 11/10/2022 9:27 PM EDT [facility] PLT 192 140 - 400 K/uL 11/10/2022 9:27 PM EDT [facility] MPV 10.7 6.6 - 11.1 fL 11/10/2022 9:27 PM EDT [facility] nRBCs 0 <=0 /100 WBCs 11/10/2022 9:27 PM EDT [facility] Blood Venous blood specimen / Unknown Venipuncture / Unknown 11/10/2022 9:19 PM EDT 11/10/2022 9:24 PM EDT Cornel Raymond MD LAB BLOOD ORDERABLES LAB[facility] [address] [place] [address] * (ABNORMAL) BASIC METABOLIC PANEL (11/10/2022 9:19 PM EDT) BUN 34(H) 6 - 20 mg/dL 11/10/2022 9:44 PM EDT [facility] Creatinine 1.3(H) 0.5 - 1.0 mg/dL 11/10/2022 9:44 PM EDT [facility] Estimated Glomerular Filtration Rate 43(L) >=60 mL/min 11/10/2022 9:44 PM EDT [facility] Comment:eGFR is calculated b ased on the CKD-EPI 2020 equation Sodium 133(L) 135 - 146 mmol/L 11/10/2022 9:44 PM EDT [facility] Potassium 5.0 3.5 - 5.1 mmol/L 11/10/2022 9:44 PM EDT [facility] Chloride 107 98 - 107 mmol/L 11/10/2022 9:44 PM EDT [facility] CO2 16(L) 22 - 32 mmol/L 11/10/2022 9:44 PM EDT [facility] Anion Gap 10 7 - 15 mmol/L 11/10/2022 9:44 PM EDT [facility] Glucose 124(H) 70 - 120 mg/dL 11/10/2022 9:44 PM EDT [facility] Calcium 9.3 8.4 - 10.2 mg/dL 11/10/2022 9:44 PM EDT [facility] Blood Venous blood specimen / Unknown Venipuncture / Unknown 11/10/2022 9:19 PM EDT 11/10/2022 9:24 PM EDT Cornel Raymond MD LAB BLOOD ORDERABLES Performing Organization Address City/State/[facility] Co de Phone Number [facility]ORY [facility] [address] [place] [id number] documented in this encounter Visit Diagnoses Diagnosis Neck pain- Primary Cervicalgia Cerebral aneurysm, nonruptured History of colon polyps Personal history of colonic polyps documented in this encounter Administered Medications Inactive Administered Medications - up to 3 most recent administrations Medication Order MAR Action Action Date Dose Rate Site diphenhydrAMINE (Benadryl) inj 50 mg 50 mg, Intravenous, ONCE, On 11/10/22 at 2145, For 1 dose, Give one hour prior to imaging study Given 11/10/2022 9:25 PM EDT 50 mg HYDROmorphone (Dilaudid) inj 0.5 mg 0.5 mg, IV Push, ONCE, On 11/10/22 at 2315, For 1 dose Given 11/10/2022 10:57 PM EDT 0.5 mg Ioversol (Optiray 350) 74 % inj 100 mL 100 mL, Intravenous, ONCE, On 11/10/22 at 2330, For 1 dose, Radiology Medication Routing (Non-IR) Given 11/10/2022 11:30 PM EDT 100 mL labetalol (Trandate) inj 10 mg 10 mg, Intravenous, ONCE, On 11/10/22 at 2145, For 1 dose Given 11/10/2022 9:26 PM EDT 10 mg losartan (Cozaar) tab 100 mg 100 mg, Oral, ONCE, On 11/10/22 at 2315, For 1 dose Given 11/10/2022 11:01 PM EDT 100 mg methylPREDNISolone sodium succ (SOLU-Medrol) inj 125 mg 125 mg, Intravenous, ONCE, On 11/10/22 at 2145, For 1 dose, Give one hour prior to imaging study Given 11/10/2022 9:25 PM EDT 125 mg NSS infusion Intravenous, at 150 mL/hr, ONCE, 1 dose, On 11/10/22 at 2315 Restarted 11/10/2022 11:55 PM EDT 150 mL/hr documented in this encounter Active and Recently Administered Medications Times are shown in EDT. Scheduled Medication Order 11/09/2022 11/10/2022 11/11/2022 diphenhydrAMINE (Benadryl) inj 50 mg (COMPLETED) 50 mg, Intravenous, ONCE, On 11/10/22 at 2145, For 1 dose, Give one hour prior to imaging study 2124 (Given - Provider: Elysia Max RN) HYDROmorphone (Dilaudid) inj 0.5 mg (COMPLETED) 0.5 mg, IV Push, ONCE, On 11/10/22 at 2315, For 1 dose 2256 (Given - Provider: Elysia Max RN) Ioversol (Optiray 350) 74 % inj 100 mL (COMPLETED) 100 mL, Intravenous, ONCE, On 11/10/22 at 2330, For 1 dose, Radiology Medication Routing (Non-IR) 2329 (Given - Provider: Nahomi Glen Daniel, RT) labetalol (Trandate) inj 10 mg (COMPLETED) 10 mg, Intravenous, ONCE, On 11/10/22 at 2145, For 1 dose 2125 (Given - Provider: Elysia Max, MARTHA) losartan (Cozaar) tab 100 mg (COMPLETED) 100 mg, Oral, ONCE, On 11/10/22 at 2315, For 1 dose 2301 (Given - Provider: Elysia Max, MARTHA) methylPREDNISolone sodium succ (SOLU-Medrol) inj 125 mg (COMPLETED) 125 mg, Intravenous, ONCE, On 11/10/22 at 2145, For 1 dose, Give one hour prior to imaging study 2124 (Given - Provider: Elysia Max, MARTHA) NSS infusion (COMPLETED) Intravenous, at 150 mL/hr, ONCE, 1 dose, On 11/10/22 at 2315 2300 (New Bag - Provider: Elysia Max RN)2333 (Paused - Provider: Elysia Max, RN)2355 (Restarted - Provider: Elysia Max RN) 0153 (Stopped - Provider: Elysia Max, RN) ondansetron (Zofran) inj 4 mg (COMPLETED) 4 mg, IV Push, ONCE, On 11/10/22 at 2315, For 1 dose 2254 (Given - Provider: Elysia Max, MARTHA) documented in this encounter Advance Directives Latest Code Status on File Code Status Date Activated Date Inactivated Comments No Code 06/28/2021 3:36 AM 06/29/2021 8:55 PM This order reflects the patients wishes and were consensually agreed upon. Question Answer Comments Discussion of Advance Directives occurred with: Patient Care Teams Self Defense Instructor Relationship Specialty Start Date End Date Agustín aJrvis MD [address] [place] [address] PCP - General 03/20/02 documented as of this encounter
--- OUTSIDE RECORDS SUMMARY | 2023-01-31 23:07 | External Medical Summary | Continuity of Care Document ---
Author Name Unknown Organization [place] [address], [place] [id number] Care Team Providers Care Practice Specialist Name Role Phone Agustín Jarvis Primary Care Physician [phone] [id number] Date(s): 11/13/22 - 11/13/22 [facility] [address] [place] [address] [phone] Encounter Diagnosis Peripheral artery disease(Discharge Diagnosis) - 11/13/22 Discharge Disposition: Home or Self Care Attending Physician: MD Umana Eugene J Referring Physician: MD Jarvis Eric K Allergies, Adverse Reactions, Alerts Substance Reaction Severity Status ensourane tripp juandice Active IVP dye hives Active CHECO Inhibitors Swelling Hives Active Assessment and Plan Extracted from: Title:Clinical Document Author:EDILIA Pastor Lynn Date:11/13/22 [facility] OUTPATIENT NOTE Name: BARRON ALMARAZ Patient Number: [id number] : 1945 Date of Service: 11/13/2022 Chief Complaint: _Follow-up for PAD HPI: _Ms. Almaraz is an elderly female presents to Dr. Umana's vascular surgery clinic today for a follow-up visit regarding her history of peripheral arterial disease and left leg femoral to peroneal artery bypass which was performed in the remote past. Patient states that she no longer has any ulceration to her left heel, and her foot overall is feeling well. She states she occasionally gets a cold sensation to her toes, but believes that this may be related to possible Raynaud's disease, as she does have Raynaud's in her hands. She denies any rest pain, nonhealing wounds or ulcerations, discoloration of the toes. She ambulates very little due to her right leg amputation. Her ultrasound of the left lower extremity demonstrates a widely patent femoral to peroneal artery bypass, with elevated velocities just past the anastomosis. Current Home Meds: (Last Updated 11/13 13:11) NIFEdipine (NIFEdipine (Eqv-Procardia XL) 60 mg oral tablet, extended release) 60 mg PO Daily acetaminophen-oxyCODONE (acetaminophen-oxyCODONE 325 mg-5 mg oral tablet) 1 tab PO q6h PRN: as needed for pain acetaminophen 500 mg prn pain atorvastatin 80 mg PO Daily bifidobacterium-lactobacillus (Probiotic Formula) 1 cap PO Daily carvedilol 25 mg PO bid cholecalciferol (Vitamin D3 1000 intl units oral tablet) 1,000 Int_Unit PO Daily clopidogrel (Plavix 75 mg oral tablet) 75 mg PO Daily fluticasone-salmeterol (Advair Diskus 250 mcg-50 mcg) 1 puff inhaled bid PRN: Wheezing insulin detemir (Levemir) 15 units subQ qPM insulin lispro (HumaLOG) subQ qid sliding scale per BS readings up to 50-60 units daily levothyroxine 150 mcg PO Daily losartan (losartan 100 mg oral tablet) 100 mg PO Daily omeprazole (omeprazole 20 mg oral delayed release tablet) 20 mg PO bid spironolactone (spironolactone 50 mg oral tablet) 50 mg PO bid Allergies and Sensitivities: ensourane tripp(juandice) CHECO Inhibitors(Hives) CHECO Inhibitors(Swelling) IVP dye(hives) Past Medical History: Problems: Ulcer of heel Postop check Below knee amputation S/P femoral-tibial bypass S/P transmetatarsal amputation of foot Peripheral vascular disease Diabetic foot ulcer Pain of right foot Hx of amputation S/P amputation of lesser toe Renal cancer S/p bilateral carotid endarterectomy Carotid stenosis Atherosclerosis Weight disorder Secondary hyperparathyroidism CKD (chronic kidney disease), stage III Cataract Vaginitis HYPERTENSION. Hyperlipidemia GERD Peripheral artery disease Asthma MRSA (methicillin resistant Staphylococcus aureus) Carotid artery stenosis CARMELITA (renal artery stenosis) Thyroid disease Hypothyroid Type II diabetes mellitus OBJECTIVE Vitals: Last Updated 11/13/22 13:17 Date Temp BP Location Pulse RR SpO2 Pain 11/13/22 0 11/13/22 130/52 Left Arm 56 98 03/01/22 164/58 Left Arm 67 98 Vital Signs are the last 3 documented. No Orthostatic Data Available Height and Weight: Last Updated 04/07/20 11:16 Date BMI Wt(kg) Wt(lb) Method Ht(cm) (ft-in) Method 04/07/20 70 154 Standing Scale 07/02/19 63.1 139 06/08/19 65.3 144 Standing Scale Heights and Weights are the last 3 documented. Physical Exam Constitutional: In general patient is a healthy-appearing well-nourished well-developed elderly female no distress. She is alert and oriented without any focal deficits. She is in a wheelchair today, but does have her right leg BKA prosthesis present. Her left leg demonstrates in no visible signs of ischemia. Her femoral pulse is +3. Her lower extremity DP pulse is +1. PT is nonpalpable. Her toes demonstrate brisk capillary fill and no sign of distal ischemia. There are no ulcerations. ASSESSMENT: _ PLAN: _ 1 ) _PAD, history of left leg femoral to peroneal artery vein bypass. Patient is overall doing well since being seen here few months ago. Her most recent procedure was WEB UI SOFTWARE ENGINEER of the peroneal artery performed in June 2022 due to increased velocities here, as well as a shallow heel ulceration which was taking a long time to heal. Her most recent ultrasound continues to demonstrate some increased velocities in this area, but she has no new concerns complaints or ulcerations. Would like to have her return in 6 months for reevaluation with an ultrasound prior to that visit. She is agreeable to this plan. She will call with any other questions. Thank you for letting us participate in the care of this patient.. Medications acetaminophen Start: 04/07/20 10:46:00 EST, 500 mg prn pain Start Date: 04/07/20 Status: Ordered acetaminophen-oxyCODONE 325 mg-5 mg oral tablet Start: 11/13/22 13:11:00 EDT, 1 tab, PO, q6h, Refills: 0, PRN: as needed for pain Start Date: 11/13/22 Status: Ordered Advair Diskus 250 mcg-50 mcg Start: 09/08/12 14:16:00, 1 puff, inhaled, bid, PRN: Wheezing Start Date: 09/08/12 Status: Ordered atorvastatin Start: 03/17/15 15:55:00, 80 mg =, PO, Daily Start Date: 03/17/15 Status: Ordered carvedilol Start: 02/28/16 13:30:00 EDT, 25 mg =, PO, bid Start Date: 02/28/16 Status: Ordered HumaLOG Start: 01/29/14 14:18:00, subQ, [...] PO, bid Start Date: 10/23/22 Status: Ordered Vitamin D3 1000 intl units oral tablet Start: 01/29/14 14:20:00, 1 tab, PO, Daily Start Date: 01/29/14 Status: Ordered Mental Status 11/13/22 Barriers to Learning one year None evide nt, Vision impairment, Other: Mandatory Health Literacy Documentation Yes Health Literacy Communication Barriers N ever Primary Language Korean Problem List Condition Confirmation Course Effective Dates [...] Dates Health Status Clinical Service Informant Peripheral artery disease Discharge Diagnosis 11/13/22 Procedures Procedure Date Related Diagnosis Body Site Status LLE Angiogram w lithotripsy and WEB UI SOFTWARE ENGINEER peroneal 06/25/22 Completed LLE Angiogram w/ WEB UI SOFTWARE ENGINEER peroneal artery 04/21/21 Completed LLE angiogram without intervention 03/25/20 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 09/02/19 Completed lle angio w barge captain l peroneal a nd stent l common iliac art 07/15/19 Completed Abdominal aortogram w/ WEB UI SOFTWARE ENGINEER/s tent of [place] PONCHO 07/06/19 Completed RLE PLAY THERAPIST - Endarterectomy of the common femoral artery wi/ bovine patch and fem-ant tib in situ bypass 04/17/19 Compl eted RLE Angiogram without intervention 04/03/19 Completed Revision RLE transmetatarsal amputation 11/11/18 Completed RLE angiogram w/ WEB UI SOFTWARE ENGINEER peronea l and popliteal artery 10/10/18 Completed Amputation of left 1st toe a nd metatarsal 02/11/18 Completed RLE angiogram w/ WEB UI SOFTWARE ENGINEER peroneal 11/22/17 Completed RLE angiogram w/ WEB UI SOFTWARE ENGINEER peronea l, TP trunk and pop 09/16/17 Completed Amputation of Right 3rd toe 07/12/17 Completed RLE Surgical debridement of foot wound, transmetatarsal amp 4th toe, excision 3rd metatartsal and prox phalnx 06/19/17 Completed RLE angiogram w/ WEB UI SOFTWARE ENGINEER/stent p opliteal artery, WEB UI SOFTWARE ENGINEER peroneal 06/14/17 Completed RLE 5th toe amputation 04/30/17 Co mpleted RLE angiogram with intervention 02/15/17 Completed RLE Mechanical Atherectomy a nd WEB UI SOFTWARE ENGINEER of popliteal, thrombolysis/TPA and recheck 02/15/17 Completed Nephrectomy 1 04/2013 Completed Vascular surgery 02/25/13 Complete d Popliteal artery 2 02/2013 Comple prisca Plantar wart 3 01/2013 Completed Planters Warts Removed From Foor 2012 Completed Cardiac catheterization 11/21/11 C ompleted Colonoscopy 2011 Completed Attempted Kidney Stent-Right 2010 Completed bilateral cataracts 2009 Compl eted Endoscopy 2008 Completed L carotidendartectomy 2002 Com pleted L breast biopsy 1997 Completed Rt carotidendarterectomy 1995 Completed Cholecystectomy 1988 Completed complete hysterectomy 1976 Com pleted partial oophorectomy 1969 Comp leted sinus polyp 1969 Completed Appendectomy 1960 Completed Tonsillectomy 1949 Completed Duplex Completed Duplex Completed 1right kidney 2bypass 3removal of the left foot Vital Signs Most recent to oldest [Reference Range]: 1 Heart Rate 56 bpm (11/13/22 1:15 PM) Blood Pressure 130/52mmHg (11/13/22 1:15 PM) Cuff Pulse Pressure 78 mmHg (11/13/22 1:15 PM) BP Location # 1 Left Arm (11/13/22 1:15 PM) Social History Social History Type Response Smoking Status Never smoked cigaret robert Sex Female [facility] Outpt Note * EDILIA Pastor Lynn: PERFORM Event Display: [facility] Outpt Note Authored Date: [id number] [facility] OUTPATIENT NOTE Name: BARRON LAMARAZ Patient Number: [id number] : 1945 Date of Service: 11/13/2022 Chief Complaint: _Follow-up for PAD HPI: _Ms. Almaraz is an elderly female presents to Dr. Umana's vascular surgery clinic today for a follow-up visit regarding her history of peripheral arterial disease and left leg femoral to peroneal artery bypass which was performed in the remote past. Patient states that she no longer has any ulceration to her left heel, and her foot overall is feeling well. She states she occasionally gets a cold sensation to her toes, but believes that this may be related to possible Raynaud's disease, as she does have Raynaud's in her hands. She denies any rest pain, nonhealing wounds or ulcerations, discoloration of the toes. She ambulates very little due to her right leg amputation. Her ultrasound of the left lower extremity demonstrates a widely patent femoral to peroneal artery bypass, with elevated velocities just past the anastomosis. Current Home Meds: (Last Updated 11/13 13:11) NIFEdipine (NIFEdipine (Eqv-Procardia XL) 60 mg oral tablet, extended release) 60 mg PO Daily acetaminophen-oxyCODONE (acetaminophen-oxyCODONE 325 mg-5 mg oral tablet) 1 tab PO q6h PRN: as needed for pain acetaminophen 500 mg prn pain atorvastatin 80 mg PO Daily bifidobacterium-lactobacillus (Probiotic Formula) 1 cap PO Daily carvedilol 25 mg PO bid cholecalciferol (Vitamin D3 1000 intl units oral tablet) 1,000 Int_Unit PO Daily clopidogrel (Plavix 75 mg oral tablet) 75 mg PO Daily fluticasone-salmeterol (Advair Diskus 250 mcg-50 mcg) 1 puff inhaled bid PRN: Wheezing insulin detemir (Levemir) 15 units subQ qPM insulin lispro (HumaLOG) subQ qid sliding scale per BS readings up to 50-60 units daily levothyroxine 150 mcg PO Daily losartan (losartan 100 mg oral tablet) 100 mg PO Daily omeprazole (omeprazole 20 mg oral delayed release tablet) 20 mg PO bid spironolactone (spironolactone 50 mg oral tablet) 50 mg PO bid Allergies and Sensitivities: ensourane tripp(juandice) CHECO Inhibitors(Hives) CHECO Inhibitors(Swelling) IVP dye(hives) Past Medical History: Problems: Ulcer of heel Postop check Below knee amputation S/P femoral-tibial bypass S/P transmetatarsal amputation of foot Peripheral vascular disease Diabetic foot ulcer Pain of right foot Hx of amputation S/P amputation of lesser toe Renal cancer S/p bilateral carotid endarterectomy Carotid stenosis Atherosclerosis Weight disorder Secondary hyperparathyroidism CKD (chronic kidney disease), stage III Cataract Vaginitis HYPERTENSION. Hyperlipidemia GERD Peripheral artery disease Asthma MRSA (methicillin resistant Staphylococcus aureus) Carotid artery stenosis CARMELITA (renal artery stenosis) Thyroid disease Hypothyroid Type II diabetes mellitus OBJECTIVE Vitals: Last Updated 11/13/22 13:17 Date Temp BP Location Pulse RR SpO2 Pain 11/13/22 0 11/13/22 130/52 Left Arm 56 98 03/01/22 164/58 Left Arm 67 98 Vital Signs are the last 3 documented. No Orthostatic Data Available Height and Weight: Last Updated 04/07/20 11:16 Date BMI Wt(kg) Wt(lb) Method Ht(cm) (ft-in) Method 04/07/20 70 154 Standing Scale 07/02/19 63.1 139 06/08/19 65.3 144 Standing Scale Heights and Weights are the last 3 documented. Physical Exam Constitutional: In general patient is a healthy-appearing well-nourished well- developed elderly female no distress. She is alert and oriented without any focal deficits. She is in a wheelchair today,but does have her right leg BKA prosthesis present. Her left leg demonstrates in no visible signs of ischemia. Her femoral pulse is +3. Her lower extremity DP pulse is +1. PT is nonpalpable. Her toesdemonstrate brisk capillary fill and no sign of distal ischemia. There are no ulcerations. ASSESSMENT: _ PLAN: _ 1 ) _PAD, history of left leg femoral to peroneal artery vein bypass. Patient is overall doing well since being seen here few months ago. Her most recent procedure was WEB UI SOFTWARE ENGINEER of the peroneal artery performed in June 2022 due to increased velocities here, as well as a shallow heel ulceration which was taking a long time to heal. Her most recent ultrasound continues todemonstrate some increased velocities in this area, but she has no new concerns complaints or ulcerations. Would like to have her return in 6 months for reevaluation with an ultrasound prior to that visit. She is agreeable to this plan. She will call with any other questions. Thank you for letting us participate in the care of this patient.. Electronic Signature on File CC: Agustín Jarvis MD [address] [facility] [address] * CC: Kevin Lane MD [address] [facility] [address] [facility] [address] * Electronically Reviewed/Signed by: Marzena Pastor PA-C Author Signature Dt/Tm:11/13/2022 04:34 PM [facility] [address] [place] [address] Patient Care team information Care Team Personnel Name: LEONARDO Shepherd Lauren O Position: Nurse Pract - Orthopaedic Surg Member Role: Lifetime Relationship Address: Address: [address] [facility] [address] [place] [address] [place] Name: MD Matheus, Agustín Sánchez Position: Referring DIRECT Member Role: Primary Care Provider Address: Address: [address] [place] [id number] Name: EDILIA Pastor Lynn Position: Physician Tire Setter Exempt - Vasc Surg Member Role: Lifetime Relationship Address: Address: [address] [place] [address] [address] [place] [address] Name: MD Camilo, David Bryson Position: Physician - Urology Member Role: Lifetime Relationship Address: Address: [address] [place] [id number] Care Team Related Persons Name: AXEL ALMARAZ Address: home [address] [place], [place] [id number]
--- OUTSIDE RECORDS SUMMARY | 2023-01-31 23:07 | External Medical Summary | Summary of Care ---
Author Name Unknown Organization [facility] Address [address] [place] [address] Phone [phone] Care Team Providers Care Pie Filler Name Role Phone Agustín Jarvis MD Primary Care Provider [phone] Reason for Visit * Reason Onset Date Comments Films 11/27/2022 Encounter Details Date Type Department Care Team Description 11/27/2022 Telephone Radiology Film File [address] [place] [address] Cornel Raymond MD [address] [place] [address] Films Allergies Active Allergy Reactions Severity Noted Date Comments Ivp Dye Hives 08/05/2006 Lisinopril Edema Other 06/01/2010 Angioedema documented as of this encounter (statuses as of 11/28/2022) Medications Medication Sig Dispensed Refills Start Date [...] suspected opioid overdose. Seek immediate medical attention. [email or web address]?[email or web address] 1 Each 3 11/11/2022 Active documented as of this encounter (statuses as of 11/28/2022) Active Problems Problem Noted Date Osteoporosis 07/17/2022 [...] as of this encounter (statuses as of 11/28/2022) Social History Tobacco Use Types Packs/Day Years [...] No 06/28/2021 documented as of this encounter Miscellaneous Notes * Telephone Encounter - CHICA Canas - 11/27/2022 2:37 PM EDT Authorization Type: [place] Auth - Continuation of care How records were given/sent: Send exams to [facility] Records given/sent: CTA 11/10/2022 documented in this encounter Plan of Treatment Upcoming Encounters Date Type Specialty Care Team Description 01/22/2023 Office Visit Otolaryngology Gary Kilgore PA-C [address] [place] [address] 02/14/2023 Hospital Encounter Endoscopy Hanny Graham, DO [address] [place] [address] 02/14/2023 Surgery Endoscopy Hanny Graham, DO [address] [place] [address] COLONOSCOPY FLEXIBLE PROXIMAL DIAGNOSTIC Scheduled Procedures Name [...] D LEVEL ONCE IN A LIFETIME-USE SMARTSET# 24311 1986 DXA Scan 1996 Zoster Vaccines (1 of 2) 1996 COLONOSCOPY-EVERY 3 YRS AGES 18-100 08/02/2017 08/02/2014, 08/02/2014, 08/23/2011, Additional history exists HbA1c 12/26/2021 06/28/2021, 06/28/2021 TSH 06/28/2022 06/28/2021, 04/0 11/2019, 04/24/2019, Additional history exists Influenza Vaccine (FLU shot) (Season Ended) 2023 [...] Not on filedocumented as of this encounter Advance Directives Latest Code Status on File Code Status Date Activated Date Inactivated Comments No Code 06/28/2021 3:36 AM 06/29/2021 8:55 PM This order reflects the patients wishes and were consensually agreed upon. Question Answer Comments Discussion of Advance Directives occurred with: Patient Care Teams Pie Filler Relationship Specialty Start Date End Date Agustín Jarvis MD [address] [place] [address] PCP - General 03/20/02 documented as of this encounter
--- OUTSIDE RECORDS SUMMARY | 2023-01-31 23:07 | External Medical Summary ---
Author Name Unknown Address Unknown Organization K1F[facility] - [address] [place] [address] Laboratory Report Ordering Provider Test Date Status JANKI JOHNSTON 11/10/2022 21:19:37 Final Observation Date Value Abnormality Reference (Units ) Status BUN 11/10/2022 21:19:37 34 Above high normal 6-20 (mg/dL) Final Creatinine 11/10/2022 21:19:37 1.3 Above high normal 0.5-1.0 (mg/dL) Final Glomerular filtration rate/1.73 sq M.predicted [Volume Rate/Area] in Serum, Plasma or Blood by Creatinine-based formula (CKD-EPI) 11/10/2022 21:19:37 43 Below low normal >=60 (mL/min) Final Performing Location [facility] [address] [place] [address]
--- OUTSIDE RECORDS SUMMARY | 2023-01-31 23:08 | External Medical Summary | Summary of Care ---
Author Name Unknown Organization [facility] Address [address] [place] [address] Phone [phone] Care Team Providers Care Manager Transportation Planning Name Role Phone Agustín Jarvis MD Primary Care Provider [phone] Reason for Visit * Reason Onset Date Comments Appointment 08/08/2022 TRIAGE 08/08/2022 Encounter Details Date Type Department Care Team Description 08/08/2022 Telephone Otolaryngology, Christy Parks [address] [place] [id number] Services, Scheduling [address] [place] [address] Appointment (/); TRIAGE Allergies Active Allergy Reactions Severity Noted Date Comments Ivp Dye Hives 08/05/2006 Lisinopril Edema Other 06/01/2010 Angioedema documented as of this encounter (statuses as of 08/08/2022) Medications Medication Sig Dispensed Refills Start Date [...] the skin. 1 Each 12 06/29/2021 Active documented as of this encounter (statuses as of 08/08/2022) Active Problems Problem Noted Date Osteoporosis 07/17/2022 [...] as of this encounter (statuses as of 08/08/2022) Social History Tobacco Use Types Packs/Day Years [...] Miscellaneous Notes * Telephone Encounter - CHICA Castro - 08/08/2022 7:08 AM EST Please triage for an Urgent appt in [place]. Thank you Jayla documented in this encounter Plan of Treatment Health Maintenance Due Date Last Done Comments COVID-19 Vaccine (#1) 01/23/1946 Pneumococcal Vaccine: 65+ Years (1 - PCV) 1952 Depression Screening, Annual for Pts 12 and Over 1958 Albumin/Creatinine Ratio 1964 DIABETES-EYE EXAM 1964 DIABETES-FOOT EXAM 1964 Hepatitis C Screening 1964 DTaP,Tdap,and Td Vaccines (1 - Tdap) 1965 VITAMIN D LEVEL ONCE IN A LIFETIME-USE SMARTSET# 27574 1986 DXA Scan 1996 Zoster Vaccines (1 of 2) 1996 COLONOSCOPY-EVERY 3 YRS AGES 18-100 08/02/2017 08/02/2014, 08/02/2014, 08/23/2011, Additional history exists HgA1C 12/26/2021 06/28/2021, 06/28/2021 Influenza Vaccine (FLU shot) (#1) 2022 TSH FOR THYROID MEDICATION MONITORING YEARLY 06/28/2022 06/28/2021, 09/07/2019, 04/24/2019, Additional history exists GFR - Renal Function 06/29/2022 06/29/2021, 06/28/2021, 06/28/2021, Additional history exists *BISPHONATE OR OTHER ACCEPTABLE MEDICATION NEEDED FOR OSTEOPOROSIS (REFER TO SMARTSET #1146) 07/19/2022 GARDASIL-HPV IMMUNIZATION SERIES Aged Out No longer [...] Advance Directives occurred with: Patient Care Teams Manager Transportation Planning Relationship Specialty Start Date End Date Agustín Jarvis MD [address] [place], [place] [phone] PCP - General 03/20/02 documented as of this encounter
--- OUTSIDE RECORDS SUMMARY | 2023-01-31 23:08 | External Medical Summary | Summary of Care ---
Author Name Unknown Organization [facility] Address [address] [place] [address] Phone [phone] Care Team Providers Care Maintenance And Repair Worker Name Role Phone Agustín Jarvis MD Primary Care Provider [phone] Encounter Details Date Type Department Care Team Description 09/14/2022 Orders Only Radiology, [facility] [address] [place] [address] Agustín Jarvis MD [address] [place] [address] Cough, unspecified* Allergies Active Allergy Reactions Severity Noted Date Comments Ivp Dye Hives 08/05/2006 Lisinopril Edema Other 06/01/2010 Angioedema documented as of this encounter (statuses as of 09/14/2022) Medications Medication Sig Dispensed Refills Start Date [...] as of this encounter (statuses as of 09/14/2022) Active Problems Problem Noted Date Osteoporosis 07/17/2022 [...] as of this encounter (statuses as of 09/14/2022) Social History Tobacco Use Types Packs/Day Years [...] No 06/28/2021 documented as of this encounter Plan of Treatment Upcoming Encounters Date Type Specialty Care Team Description 10/22/2022 Office Visit Otolaryngology Gary Kilgore PA-C [address] [phone] Pending Results Name Type Priority Associated Diagnoses Date /Time XR CHEST 2 VIEWS Medical Imaging STAT Cough, unspecified 09/14/2022 8:55 AM EDT Health Maintenance Due Date Last Done Comments Pneumococcal Vaccine: 65+ Years (1 - PCV) 1951 Depression Screening, Annual for Pts 12 and Over 1958 Albumin/Creatinine Ratio 1964 DIABETES-EYE EXAM 1964 DIABETES-FOOT EXAM 1964 Hepatitis C Screening 1964 DTaP,Tdap,and Td Vaccines (1 - Tdap) 1965 VITAMIN D LEVEL ONCE IN A LIFETIME-USE SMARTSET# 02964 1986 DXA Scan 1996 Zoster Vaccines (1 of 2) 1996 COLONOSCOPY-EVERY 3 YRS AGES 18-100 08/02/2017 08/02/2014, 08/02/2014, 08/23/2011, Additional history exists HgA1C 12/26/2021 06/28/2021, 06/28/2021 COVID-19 Vaccine (2 - Pfizer series) 05/04/2022 04/13/2022 TSH FOR THYROID MEDICATION MONITORING YEARLY 06/28/2022 06/28/2021, 09/07/2019, 04/24/2019, Additional history exists GFR - Renal Function 06/29/2022 06/29/2021, 06/28/2021, 06/28/2021, Additional history exists *BISPHONATE OR OTHER ACCEPTABLE MEDICATION NEEDED FOR OSTEOPOROSIS (REFER TO SMARTSET #1146) 07/19/2022 Influenza Vaccine (FLU shot) (Season Ended) 2023 04/22/2019 GARDASIL-HPV IMMUNIZATION SERIES Aged Out No longer [...] as of this encounter Visit Diagnoses Diagnosis Cough, unspecified- Primary documented in this encounter Advance Directives Latest Code Status on File Code Status Date Activated Date Inactivated Comments No Code 06/28/2021 3:36 AM 06/29/2021 8:55 PM This order reflects the patients wishes and were consensually agreed upon. Question Answer Comments Discussion of Advance Directives occurred with: Patient Care Teams Maintenance And Repair Worker Relationship Specialty Start Date End Date Agustín Jarvis MD [address] [place] [address] PCP - General 03/20/02 documented as of this encounter
--- OUTSIDE RECORDS SUMMARY | 2023-01-31 23:08 | External Medical Summary | Summary of Care ---
Author Name Unknown Organization [facility] Address [address] [place] [address] Phone [phone] Care Team Providers Care Engineering And Operations Director Name Role Phone Agustín Jarvis MD Primary Care Provider [phone] Reason for Visit * Reason Comments Treatment Reclast * Episode Based Medications (Routine) - Closed Specialty Diagnoses / Procedures Referred By Contpatrick t Referred To Contact Diagnoses Age-related osteoporosis without current pathological fracture Procedures AK ZOLEDRONIC ACID 1MG Agustín Jarvis MD [address] [place] [address] [facility] Hem/Onc [address] [address] Referral ID Status Reason Start Date Expiration Date Visits Re quested Visits Authorized [id number] Closed 07/18/2022 07/18/[phone] Encounter Details Date Type Department Care Team Description 07/31/2022 Hem/Onc Treatment Hematology/Oncology Treatment, [facility] [address] [place] [address] [facility], Chair6 Hem Onc [address] [place] [address] [place] [id number] Age-related osteoporosis without current pathological fracture* Allergies Active Allergy Reactions Severity Noted Date Comments Ivp Dye Hives 08/05/2006 Lisinopril Edema Other 06/01/2010 Angioedema documented as of this encounter (statuses as of 08/19/2022) Medications Medication Sig Dispensed Refills Start Date [...] as of this encounter (statuses as of 08/19/2022) Active Problems Problem Noted Date Osteoporosis 07/17/2022 [...] as of this encounter (statuses as of 08/19/2022) Social History Tobacco Use Types Packs/Day Years Used Date Smoking Tobacco: Never Smokeless Tobacco: Never Tobacco Cessation:Counseling Given: Not Answered Alcohol Use Standard Drinks/Week Comments Never 0 [...] Sign Reading Time Taken Comments Blood Pressure 141/63 07/31/2022 2:37 PM EST Pulse 58 07/31/2022 2:37 PM EST Temperature 36.7 C (98.1 F) 07/31/2022 1:44 PM ES T Respiratory Rate 20 07/31/2022 2:37 PM EST Oxygen Saturation - - Inhaled Oxygen Concentration - - Weight 63.3 kg (139 lb 9.6 oz) 07/31/2022 1:44 P M EST Height 165.1 cm (5' 5") 07/31/2022 1:44 PM EST Body Mass Index 23.23 07/31/2022 1:44 PM EST documented in this encounter Functional Status Functional [...] No 06/28/2021 documented as of this encounter Nursing Notes * Radha Miranda RN - 07/31/2022 2:45 PM EST Patient left IVC by wheelchair. Accompanied by Family. Voiced no complaints. Radha Miranda RN 07/31/2022 2:45 PM * Radha Miranda RN - 07/31/2022 2:01 PM EST Reviewed crown replacement via TT with Isaías Rosa RP and he feels it is safe to proceed with Reclastinfusion today. * Radha Miranda RN - 07/31/2022 1:50 PM EST Chair # [phone] Pt presents today for Reclast. Pt verbalized that she had a crown replaced last week. [facility] Care Plan ID is not set. 07/31/2022 Safety and Risk for Injury Patient will remain free from injury. Assess patient's risk for falls per policy. Encourage activity as ordered per policy. Ensure appropriate safety devices are available. Implement fall prevention plan of care per policy. Include patient and caregiver in decisions related to safety. Perform safety rounds per policy. Provide and maintain safe environment. Radha Miranda RN documented in this encounter Miscellaneous Notes * Pt Handout (on AVS) - DAYNE, PATIENT HANDOUT - 07/31/2022 1:54 PM EST Images from the original note were not included. [id number] Zoledronic Acid Injection 5 mg/100 mL Brands: Reclast Uses This medicine is used for the following purposes: bone disease bone strength Instructions This medicine is given as an IV injection into a vein. Please ask your doctor, nurse, or pharmacist how to discard unused medicines safely. This medicine should be given by a trained health care provider. Drink plenty of water while on this medicine. Drink at least 2 glasses of water before treatment, unless instructed otherwise. It may take several weeks for this medicine to fully work. It is important that you keep taking each dose of this medicine on time even if you are feeling well. If you miss a dose, contact your doctor for instructions. Drug interactions can change how medicines work or increase risk for side effects. Tell your healthcare providers about all medicines taken. Include prescription and fmtv-yax-azbyqcs medicines, vitamins, and herbal medicines. Speak with your doctor or pharmacist before starting or stopping any medicine. This medicine may affect the strength of your bones. If you have or are at increased risk for osteoporosis (weakening of the bones), your doctor may recommend foods with calcium and vitamin D. Visit your dentist regularly. Proper care of your teeth is very important while taking this medicine. [place] your teeth and floss regularly. Keep all appointments for medical exams and tests while on this medicine. Cautions This medicine can cause defects. Speak with your doctor about control methods that should be used while on this medicine and for some time after stopping it. Tell your doctor and pharmacist if you ever had an allergic reaction to a medicine. Do not use the medication any more than instructed. This medicine may cause dizziness or fainting, especially after exercising or in hot weather. Be very careful when standing or sitting up quickly. Your ability to stay alert or to react quickly may be impaired by this medicine. Do not drive or operate machinery until you know how this medicine will affect you. Please check with your doctor before drinking alcohol while on this medicine. Avoid smoking while on this medicine. Smoking may increase your risk for bone fractures. If possible, avoid using with marijuana or other medicines that can cause dizziness or drowsiness. These include allergy/cold products, muscle relaxers, sleep aids, and pain relievers. Do not breastfeed while on this medicine. This medicine can hurt a new baby in the womb. If you become while on this medicine, tell your doctor immediately. Your doctor may switch you to a different medicine. Some patients have serious side effects from this medicine. Ask your pharmacist to show you the information from the Food and Drug Administration (FDA) and discuss it with you. Side Effects The following is a list of some common side effects from this medicine. Please speak with your doctor about what you should do if you experience these or other side effects. dizziness lack of energy and tiredness flu-like symptoms headaches pain, redness, swelling near injection nausea Call your doctor or get medical help right away if you notice any of these more serious side effects: bone pain fever or chills high fever numbness or tingling in hands and feet fast or irregular heart beats jaw pain kidney problems mouth sores or irritation muscle cramps tight or rigid muscles muscle weakness joint or muscle pain eye pain or swelling red, burning, or itchy skin redness of eyes seizures sensitivity to light shortness of breath skin tingling, burning or prickly feeling unusual or unexplained tiredness or weakness urinating less often dark urine blurring or changes of vision weakness A few people may have an allergic reaction to this medicine. Symptoms can include difficulty breathing, skin rash, itching, swelling, or severe dizziness. If you notice any of these symptoms, seek medical help quickly. Extra Please speak with your doctor, nurse, or pharmacist if you have any questions about this medicine. [email or web address] IMPORTANT NOTE: This document tells you briefly how to take your medicine, but it does not tell youall there is to know about it. Your doctor or pharmacist may give you other documents about your medicine. Please talk to them if you have any questions. Always follow their advice. There is a more complete description of this medicine available in Hungarian. Scan this code on your smartphone or tablet or use the web address below. You can also ask your pharmacist for a printout. If you have any questions, please ask your pharmacist. The display and use of this drug information is subject to Terms of Use. Copyright(c) 2022 hipix. 9123-7696 [employer]. All rights reserved. This information is not intended as a substitute for professional medical care. Always follow your healthcare professional's instructions. * Pt Handout (on AVS) - DAYNE PATIENT HANDOUT - 07/31/2022 1:54 PM EST Images from the original note were not included. [id number] Zoledronic Acid Injection 5 mg/100 mL Brands: Reclast Uses This medicine is used for the following purposes: bone disease bone strength Instructions This medicine is given as an IV injection into a vein. Please ask your doctor, nurse, or pharmacist how to discard unused medicines safely. This medicine should be given by a trained health care provider. Drink plenty of water while on this medicine. Drink at least 2 glasses of water before treatment, unless instructed otherwise. It may take several weeks for this medicine to fully work. It is important that you keep taking each dose of this medicine on time even if you are feeling well. If you miss a dose, contact your doctor for instructions. Drug interactions can change how medicines work or increase risk for side effects. Tell your healthcare providers about all medicines taken. Include prescription and mavq-uxl-suofnjx medicines, vitamins, and herbal medicines. Speak with your doctor or pharmacist before starting or stopping any medicine. This medicine may affect the strength of your bones. If you have or are at increased risk for osteoporosis (weakening of the bones), your doctor may recommend foods with calcium and vitamin D. Visit your dentist regularly. Proper care of your teeth is very important while taking this medicine. [place] your teeth and floss regularly. Keep all appointments for medical exams and tests while on this medicine. Cautions This medicine can cause defects. Speak with your doctor about control methods that should be used while on this medicine and for some time after stopping it. Tell your doctor and pharmacist if you ever had an allergic reaction to a medicine. Do not use the medication any more than instructed. This medicine may cause dizziness or fainting, especially after exercising or in hot weather. Be very careful when standing or sitting up quickly. Your ability to stay alert or to react quickly may be impaired by this medicine. Do not drive or operate machinery until you know how this medicine will affect you. Please check with your doctor before drinking alcohol while on this medicine. Avoid smoking while on this medicine. Smoking may increase your risk for bone fractures. If possible, avoid using with marijuana or other medicines that can cause dizziness or drowsiness. These include allergy/cold products, muscle relaxers, sleep aids, and pain relievers. Do not breastfeed while on this medicine. This medicine can hurt a new baby in the womb. If you become while on this medicine, tell your doctor immediately. Your doctor may switch you to a different medicine. Some patients have serious side effects from this medicine. Ask your pharmacist to show you the information from the Food and Drug Administration (FDA) and discuss it with you. Side Effects The following is a list of some common side effects from this medicine. Please speak with your doctor about what you should do if you experience these or other side effects. dizziness lack of energy and tiredness flu-like symptoms headaches pain, redness, swelling near injection nausea Call your doctor or get medical help right away if you notice any of these more serious side effects: bone pain fever or chills high fever numbness or tingling in hands and feet fast or irregular heart beats jaw pain kidney problems mouth sores or irritation muscle cramps tight or rigid muscles muscle weakness joint or muscle pain eye pain or swelling red, burning, or itchy skin redness of eyes seizures sensitivity to light shortness of breath skin tingling, burning or prickly feeling unusual or unexplained tiredness or weakness urinating less often dark urine blurring or changes of vision weakness A few people may have an allergic reaction to this medicine. Symptoms can include difficulty breathing, skin rash, itching, swelling, or severe dizziness. If you notice any of these symptoms, seek medical help quickly. Extra Please speak with your doctor, nurse, or pharmacist if you have any questions about this medicine. [email or web address] IMPORTANT NOTE: This document tells you briefly how to take your medicine, but it does not tell youall there is to know about it. Your doctor or pharmacist may give you other documents about your medicine. Please talk to them if you have any questions. Always follow their advice. There is a more complete description of this medicine available in Hungarian. Scan this code on your smartphone or tablet or use the web address below. You can also ask your pharmacist for a printout. If you have any questions, please ask your pharmacist. The display and use of this drug information is subject to Terms of Use. Copyright(c) 2022 hipix. 7084-9516 [employer]. All rights reserved. This information is not intended as a substitute for professional medical care. Always follow your healthcare professional's instructions. documented in this encounter Plan of Treatment Health Maintenance Due Date Last Done Comments COVID-19 Vaccine (#1) 01/23/1946 Pneumococcal Vaccine: 65+ Years (1 - PCV) 1951 Depression Screening, Annual for Pts 12 and Over 1958 Albumin/Creatinine Ratio 1964 DIABETES-EYE EXAM 1964 DIABETES-FOOT EXAM 1964 Hepatitis C Screening 1964 DTaP,Tdap,and Td Vaccines (1 - Tdap) 1965 VITAMIN D LEVEL ONCE IN A LIFETIME-USE SMARTSET# [id number] 1986 DXA Scan 1996 Zoster Vaccines (1 [...] as of this encounter Visit Diagnoses Diagnosis Age-related osteoporosis without current pathological fracture- Primary Senile osteoporosis documented in this encounter Administered Medications Inactive Administered Medications - up to 3 most recent administrations Medication Order MAR Action Action Date Dose Rate Site Acetaminophen (Tylenol) tab 975 mg 975 mg (rounded from 1,000 mg), Oral, DAILY PRN if not given at home, Starting on Sat07/31/22 at 1406, Until Sat07/31/22 at 1444, Maximum of 4 grams (4000 mg) per day. Given 07/31/2022 2:18 PM EST 975 mg NSS infusion 500 mL, Intravenous, at 50 mL/hr, CONTINUOUS, Starting on Sat07/31/22 at 1515, Until Sat07/31/22 at 1444 Start Infusion 07/31/2022 2:19 PM EST 500 mL 50 mL/hr Zoledronic Acid (Reclast) 5 mg in 100 mL PREMIX ivpb 5 mg, IV Piggyback, ONCE, 1 dose, On Tu07/31/22 at 1545 Start Infusion 07/31/2022 2:22 PM EST 5 mg 400 mL/hr documented in this encounter Advance Directives Latest Code Status on File Code Status Date Activated Date Inactivated Comments No Code 06/28/2021 3:36 AM 06/29/2021 8:55 PM This order reflects the patients wishes and were consensually agreed upon. Question Answer Comments Discussion of Advance Directives occurred with: Patient Care Teams Engineering And Operations Director Relationship Specialty Start Date End Date Agustín Jarvis MD [address] [place] [address] PCP - General 03/20/02 documented as of this encounter
--- OUTSIDE RECORDS SUMMARY | 2023-01-31 23:08 | External Medical Summary | Summary of Care ---
Author Name Unknown Organization [facility] Address [address] [place] [address] Phone [phone] Care Team Providers Care Maintenance Analyst Name Role Phone Agustín Jarvis MD Primary Care Provider [phone] Reason for Visit * Reason Onset Date Comments Appointment 08/08/2022 TRIAGE 08/08/2022 Encounter Details Date Type Department Care Team Description 08/08/2022 Telephone Otolaryngology, Christy Parks [address] [place] [id number] Services, Scheduling [address] [place] [address] Appointment (/); TRIAGE Allergies Active Allergy Reactions [...] Miscellaneous Notes * Telephone Encounter - CHICA Castelan - 08/08/2022 9:45 AM EST Records from [facility] are scanned in chart. * Telephone Encounter - Magi Vu LPN - 08/08/2022 9:09 AM EST Patient is scheduled with [facility] ENT in September. Patient has not been recently seen by ENT. Per PCP note: Recent Right OE. No drainage at last visit. Diminished hearing. Perforated Right TM. Please advise on scheduling as they are requesting [place]. * Telephone Encounter - Julee Escalante LPN - 08/08/2022 8:16 AM EST Message left for patient to return call. Please obtain more information regarding appointment needed. No referral is seen in chart review. * Telephone Encounter - CHICA Castro - 08/08/2022 7:08 AM EST Please triage for an Urgent appt in [place]. Thank you Jayla documented in this encounter [...] D LEVEL ONCE IN A LIFETIME-USE SMARTSET# [id number] 1986 DXA Scan 1996 Zoster Vaccines (1 [...] Directives occurred with: Patient Care Teams Maintenance Analyst Relationship Specialty Start Date End Date Agustín Jarvis MD [address] [place] [address] [address] [address] PCP - General 03/20/02 documented as of this encounter
--- OUTSIDE RECORDS SUMMARY | 2023-01-31 23:08 | External Medical Summary | Summary of Care ---
Author Name Unknown Organization [facility] Address [address] [place] [address] Phone [phone] Care Team Providers Care Hospice Coordinator Name Role Phone Agustín Jarvis MD Primary Care Provider [phone] Reason for Visit * Reason Onset Date Comments Appointment 08/08/2022 TRIAGE 08/08/2022 Encounter Details Date Type Department Care Team Description 08/08/2022 Telephone Otolaryngology, Christy Parks [address] [place] [id number] Services, Scheduling [address] [place] [address] Appointment (/); TRIAGE Allergies Active Allergy Reactions [...] Miscellaneous Notes * Telephone Encounter - CHICA Woods - 08/08/2022 3:44 PM EST Called pt to schedule appt. LMOM for pt to return call. CHICA Woods * Telephone Encounter - Julee Escalante LPN - 08/08/2022 3:00 PM EST Patient returned call and states does not need an urgent appointment. Patient states was unable to get appointment at [facility] until January. Patient states prefers sooner appointment in [place]. Patient denies ear pain or drainage bilaterally. Patient states has perforation of ear drum s/p infection. Patient denies known hearing loss. States hearing testing was completed previously and hearing loss in affected ear was "minimal". Please assist with first available appointment any provider in [place] with audiology. * Telephone Encounter - CHICA Castelan - 08/08/2022 9:45 AM EST Records from [facility] are scanned in chart. * Telephone Encounter - Magi Vu LPN - 08/08/2022 9:09 AM EST Patient is scheduled with [facility] ENT in September. Patient has not been recently seen by ENT. Per PCP note: Recent Right OE. No drainage at last visit. Diminished hearing. Perforated Right TM. Please advise on scheduling as they are requesting [place]. * Telephone Encounter - Julee Escalante LPN - 08/08/2022 8:16 AM EST Message left for patient to return call. Please obtain more information regarding appointment needed. No referral is seen in chart review. * Telephone Encounter - CHICA Castro - 08/08/2022 7:08 AM EST Please triage for an Urgent appt in [place]. Thank you Jayla documented in this encounter [...] D LEVEL ONCE IN A LIFETIME-USE SMARTSET# [id number] 1986 DXA Scan 1996 Zoster Vaccines (1 [...] Advance Directives occurred with: Patient Care Teams Hospice Coordinator Relationship Specialty Start Date End Date Agustín Jarvis MD [address] [place] [address] PCP - General 03/20/02 documented as of this encounter
--- OUTSIDE RECORDS SUMMARY | 2023-01-31 23:08 | External Medical Summary | Summary of Care ---
Author Name Unknown Organization [facility] Address [address] [place] [address] Phone [phone] Care Team Providers Care Securities Underwriter Name Role Phone Agustín Jarvis MD Primary Care Provider [phone] Reason for Visit * Reason Onset Date Comments Appointment 08/08/2022 TRIAGE 08/08/2022 Encounter Details Date Type Department Care Team Description 08/08/2022 Telephone Otolaryngology, Christy Parks [address] [place] [id number] Services, Scheduling [address] [place] [address] Appointment (/); TRIAGE Allergies Active Allergy Reactions [...] encounter Miscellaneous Notes * Telephone Encounter - Juele Escalante LPN - 08/08/2022 3:00 PM EST Patient returned call and states does not need an urgent appointment. Patient was unable to get appointment at [facility] until January. Patient states prefers sooner appointment in [place]. Patient denies ear pain or drainage bilaterally. Patient states has perforation of ear drum s/p infection. Patient denies known hearing loss. States hearing testing was completed previously and hearing loss in affected ear was "minimal". Please assist with first available appointment any provider in [place] with audiology. * Telephone Encounter - CHICA Castelan - 08/08/2022 9:45 AM EST Records from [facility] are scanned in chart. * Telephone Encounter - Magi Vu LPN - 08/08/2022 9:09 AM EST Patient is scheduled with [facility] ENT in September. Patient has not been recently seen by ENT. Per PCP note: Recent Right OE. No drainage at last visit. Diminished hearing. Perforated Right TM. Please advise on scheduling as they are requesting [place]. * Telephone Encounter - Julee Escalante LPN - 08/08/2022 8:16 AM EST Message left for patient to return call. Please obtain more information regarding appointment needed. No referral is seen in chart review. * Telephone Encounter - CHICA Castro - 08/08/2022 7:08 AM EST Please triage for an Urgent appt in [place]. Thank you Jayla documented in this encounter [...] D LEVEL ONCE IN A LIFETIME-USE SMARTSET# [id number] 1986 DXA Scan 1996 Zoster Vaccines (1 [...] MEDICATION NEEDED FOR OSTEOPOROSIS (REFER TO SMARTSET #1424) 07/19/2022 GARDASIL-HPV IMMUNIZATION SERIES Aged Out No [...] Advance Directives occurred with: Patient Care Teams Securities Underwriter Relationship Specialty Start Date End Date Agustín Jarvis MD [address] [place] [address] PCP - General 03/20/02 documented as of this encounter
--- OUTSIDE RECORDS SUMMARY | 2023-01-31 23:08 | External Medical Summary | Continuity of Care Document ---
Author Name Unknown Organization [address] Address [address] [place], [place] [id number] Care Team Providers Care Arch Cushion Skiving Machine Operator Name Role Phone Augstín Jarvis Primary Care Physician [phone] [id number] Date(s): 10/18/22 - 10/18/22 [facility] [address], [address] [place] [address] [phone] Discharge Disposition: Home or Self Care Attending Physician: EDILIA Pastor Lynn Referring Physician: EDILIA Pastor Lynn Allergies, Adverse Reactions, Alerts Substance Reaction Severity [...] Daily Start Date: 06/04/17 Status: Ordered spironolactone 25 mg oral tablet Start: 06/12/12 14:40:00, 1 tab, PO, bid, Disp# 60 tab, Refills: 3, Pharmacy: [id number] Start Date: 06/12/12 Status: Ordered Vitamin D3 1000 intl units [...] Vaginitis Confirmed Active Weight disorder Confirmed Active Procedures Procedure Date Related Diagnosis Body Site Status LLE Angiogram w lithotripsy and CHEMICAL SALES REPRESENTATIVE peroneal 06/25/22 Completed LLE Angiogram w/ CHEMICAL SALES REPRESENTATIVE peroneal artery 04/21/21 Completed LLE angiogram without intervention 03/25/20 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 09/02/19 Completed lle angio w quality controller l peroneal a nd stent l common iliac art 07/15/19 Completed Abdominal aortogram w/ CHEMICAL SALES REPRESENTATIVE/s tent of [place] PONCHO 07/06/19 Completed RLE PROFESSOR OF EARLY CHILDHOOD EDUCATION - Endarterectomy of the common femoral artery wi/ bovine patch and fem-ant tib in situ bypass 04/17/19 Compl eted RLE Angiogram without intervention 04/03/19 Completed Revision RLE transmetatarsal amputation 11/11/18 Completed RLE angiogram w/ CHEMICAL SALES REPRESENTATIVE peronea l and popliteal artery 10/10/18 Completed Amputation of left 1st toe a nd metatarsal 02/11/18 Completed RLE angiogram w/ CHEMICAL SALES REPRESENTATIVE peroneal 11/22/17 Completed RLE angiogram w/ CHEMICAL SALES REPRESENTATIVE peronea l, TP trunk and pop 09/16/17 Completed Amputation of Right 3rd toe 07/12/17 Completed RLE Surgical debridement of foot wound, transmetatarsal amp 4th toe, excision 3rd metatartsal and prox phalnx 06/19/17 Completed RLE angiogram w/ CHEMICAL SALES REPRESENTATIVE/stent p opliteal artery, CHEMICAL SALES REPRESENTATIVE peroneal 06/14/17 Completed RLE 5th toe amputation 04/30/17 Co mpleted RLE angiogram with intervention 02/15/17 Completed RLE Mechanical Atherectomy a nd CHEMICAL SALES REPRESENTATIVE of popliteal, thrombolysis/TPA and recheck 02/15/17 Completed Nephrectomy 04/2013 Completed Vascular surgery 02/25/13 Complete d Popliteal artery 2 02/2013 Comple prisca Plantar wart 3 01/2013 Completed Planters Warts Removed From Foor 2012 Completed Cardiac catheterization 11/21/11 C ompleted Colonoscopy 2011 Completed Attempted Kidney Stent-Right 2011 Completed bilateral cataracts 2009 Compl eted Endoscopy 2008 Completed L carotidendartectomy 2002 Com pleted L breast biopsy 1997 Completed Rt carotidendarterectomy 1995 Completed Cholecystectomy 1988 Completed complete hysterectomy 1976 Com pleted partial oophorectomy 1969 Comp leted sinus polyp 1970 Completed Appendectomy 1960 Completed Tonsillectomy 1949 Completed Duplex Completed Duplex Completed 1right kidney 2bypass 3removal of the left foot Results Radiology Reports * Exam Date Time Procedure Performing Provider Status 10/18/22 11:47 AM VL Lower Ext Arterial Duplex Limited Judi Carpio; Final Notes: (VL Lower Ext Arterial Duplex Limited) Reason For Exam: PAD VL Lower Ext Arterial Duplex Limited [facility] FINAL REPORT Name: BARRON BOND : 1945 Visit: [id number] Date: 18 Oct 2022 TYPE OF TEST: Extremity Arterial Duplex REASON FOR TEST PAD, Bypass graft INTERPRETATION/FINDINGS Arterial duplex imaging performed of the LEFT lower extremity arteries and popliteal artery to peroneal artery bypass graft with vein: 1. No hemodynamically significant stenosis in the distal external iliac, common femoral, proximal profunda femoris or superficial femoral inflow arteries. 2. Patent scvqm-llu-idzl popliteal artery to proximal peroneal artery bypass graft with no evidence of stenosis at the proximal anastomosis, throughout the graft or at the distal anastomosis. Low mid graft velocity of 30.8 cm/s suggests a compromised graft. 3. 75-99% stenosis (PSV 335 cm/sec) of the outflow peroneal artery just distal to the BPG distal anastomosis. 4. Unable to obtain left ankle/brachial index due to severely elevated brachial systolic pressures (244 mmHg). 5. Unable to obtain right ankle/brachial index due to right leg amputation. Compared to the previous study performed 06/14/2022, there is no change. After the study, patient was assessed by Peyton Ziegler RN, who notified patient's PCP of her elevated blood pressure and an appt was made same day with PCP for further work up. IMPRESSION/COMMENTS I have personally reviewed the data relevant to the interpretation of this study. TECHNOLOGIST: Judi Carpio , RDCS, RVT PHYSICIAN: Jessie Whyte MD Signed: 10/18/2022 06:19 PM Final Dictated by:MD Whyte Tanya R Dictated DT/TM:10/18/2022 6:19 Signed by:MD Whyte Tanya R Signed (Electronic Signature):10/18/2022 6:19 p Transcribed by:TRAl Social History Social History Type Response Smoking Status Never smoked cigaret robert Sex Female Note * MD Whyte Tanya R: VERIFY, PERFORM, VERIFY, TRANSCRIBE Event Display: Report Authored Date: [id number] [facility] FINAL REPORT Name: BARRON BOND : 1945 Visit: [id number] Date: 18 Oct 2022 TYPE OF TEST: Extremity Arterial Duplex REASON FOR TEST PAD, Bypass graft INTERPRETATION/FINDINGS Arterial duplex imaging performed of the LEFT lower extremity arteries and popliteal artery to peroneal artery bypass graft with vein: 1. No hemodynamically significant stenosis in the distal external iliac, common femoral, proximal profunda femoris or superficial femoral inflow arteries. 2. Patent uzyyi-mvn-iyfs popliteal artery to proximal peroneal artery bypass graft with no evidence of stenosis at the proximal anastomosis, throughout the graft or at the distal anastomosis. Low mid graft velocity of 30.8 cm/s suggests a compromised graft. 3. 75-99% stenosis (PSV 335 cm/sec) of the outflow peroneal artery just distal to the BPG distal anastomosis. 4. Unable to obtain left ankle/brachial index due to severely elevated brachial systolic pressures (244 mmHg). 5. Unable to obtain right ankle/brachial index due to right leg amputation. Compared to the previous study performed 06/14/2022, there is no change. After the study, patient was assessed by Peyton Ziegler RN, who notified patient's PCP of her elevated blood pressure and an appt was made same day with PCP for further work up. IMPRESSION/COMMENTS I have personally reviewed the data relevant to the interpretation of this study. TECHNOLOGIST: Judi SEXTON, RDCS, RVT PHYSICIAN: Jessie Whyte MD Signed: 10/18/2022 06:19 PM Final Dictated by:MD Whyte Tanya R Dictated DT/TM:10/18/2022 6:19 Signed by:MD Whyte Tanya R Signed (Electronic Signature):10/18/2022 6:19 p Transcribed by:TRF Patient Care team information Care Team Personnel Name: LEONARDO Shepherd Lauren O Position: Nurse Pract - Orthopaedic Surg Member Role: Lifetime Relationship Address: Address: [address] [facility] [address] [place] [address] [place] Name: MD Matheus, Agustín Sánchez Position: Referring DIRECT Member Role: Primary Care Provider Address: Address: [address] [place] [address] [place] Name: EDILIA Pastor Lynn Position: Physician Pulp Drier Exempt - Vasc Surg Member Role: Lifetime Relationship Address: Address: [address] [place] [address] [place] Name: MD Camilo, David Bryson Position: Physician - Urology Member Role: Lifetime Relationship Address: Address: [address] [place] [address] [place] Care Team Related Persons Name: AXEL BOND Address: home [address] [place] [address] [address] [place], [place] [id number]
--- OUTSIDE RECORDS SUMMARY | 2023-01-31 23:08 | External Medical Summary | Summary of Care ---
Author Name Unknown Organization [facility] Address [address] [place] [address] Phone [phone] Care Team Providers Care Support Services Rep Name Role Phone Agustín Jarvis MD Primary Care Provider [phone] Reason for Visit * Reason Onset Date Comments Appointment 08/08/2022 TRIAGE 08/08/2022 Encounter Details Date Type Department Care Team Description 08/08/2022 Telephone Otolaryngology, Christy Parks [address] [place] [id number] Services, Scheduling [address] [place] [address] Appointment (/); TRIAGE Allergies Active Allergy Reactions [...] encounter Miscellaneous Notes * Telephone Encounter - Magi Vu LPN - 08/08/2022 9:09 AM EST Patient is scheduled with [facility] ENT in September. Patient has not been recently seen by ENT. Per PCP note: Recent Right OE. No drainage at last visit. Diminished hearing. Perforated Right TM. Please advise on scheduling as they are requesting [place]. * Telephone Encounter - Julee Escalante LPN - 08/08/2022 8:16 AM EST Message left for patient to return call. Please obtain more information regarding appointment needed. No referral is seen in chart review. * Telephone Encounter - CHICA Castro - 08/08/2022 7:08 AM EST Please triage for an Urgent appt in [place]. Thank you Jayla documented in this encounter [...] D LEVEL ONCE IN A LIFETIME-USE SMARTSET# [id number] 1986 DXA Scan 1996 Zoster Vaccines (1 [...] Advance Directives occurred with: Patient Care Teams Support Services Rep Relationship Specialty Start Date End Date Agustín Jarvis MD [address] [place] [address] PCP - General 03/20/02 documented as of this encounter
--- OUTSIDE RECORDS SUMMARY | 2023-01-31 23:08 | External Medical Summary | Summary of Care ---
Author Name Unknown Organization [facility] Address [address] [place] [address] Phone [phone] Care Team Providers Care Electrical Power Engineer Name Role Phone Agustín Jarvis MD Primary Care Provider [phone] Reason for Visit * Reason Onset Date Comments Appointment 08/08/2022 TRIAGE 08/08/2022 Encounter Details Date Type Department Care Team Description 08/08/2022 Telephone Otolaryngology, Christy Parks [address] [place] [id number] Services, Scheduling [address] [place] [address] Appointment (/); TRIAGE Allergies Active Allergy Reactions Severity Noted Date Comments Ivp Dye Hives 08/05/2006 Lisinopril Edema Other 06/01/2010 Angioedema documented as of this encounter (statuses as of 08/15/2022) Medications Medication Sig Dispensed Refills Start Date [...] as of this encounter (statuses as of 08/15/2022) Active Problems Problem Noted Date Osteoporosis 07/17/2022 [...] as of this encounter (statuses as of 08/15/2022) Social History Tobacco Use Types Packs/Day Years [...] * Telephone Encounter - CHICA Woods - 08/15/2022 9:35 AM EDT Called pt to schedule appt. LMOM for pt to return call. CHICA Woods * Telephone Encounter - CHICA Woods - 08/08/2022 3:44 PM EST Called pt to schedule appt. LMOM for pt to return call. CHICA Woods * Telephone Encounter - Julee Escalante LPN - 08/08/2022 3:00 PM EST Patient returned call and states does not need an urgent appointment. Patient states was unable to get appointment at [facility] until January. Patient states prefers sooner appointment in [place]. Patient denies ear pain or drainage bilaterally. Patient states has perforation of ear drum s/p infection. Patient denies known hearing loss. States hearing testing was completed previously and hearing loss in affected ear was "minimal". Please assist with first available appointment any provider in [place] with audiology. * Telephone Encounter - CHICA Castelan - 08/08/2022 9:45 AM EST Records from [facility] are scanned in chart. * Telephone Encounter - Magi Vu LPN - 08/08/2022 9:09 AM EST Patient is scheduled with [facility] ENT in September. Patient has not been recently seen by ENT. Per PCP note: Recent Right OE. No drainage at last visit. Diminished hearing. Perforated Right TM. Please advise on scheduling as they are requesting [place]. * Telephone Encounter - Julee Escalante LPN - 08/08/2022 8:16 AM EST Message left for patient to return call. Please obtain more information regarding appointment needed. No referral is seen in chart review. * Telephone Encounter - CHICA Castro - 08/08/2022 7:08 AM EST Please triage for an Urgent appt in [place]. Thank you Jayla documented in this encounter [...] D LEVEL ONCE IN A LIFETIME-USE SMARTSET# [id number] 1986 DXA Scan 1996 Zoster Vaccines (1 [...] Advance Directives occurred with: Patient Care Teams Electrical Power Engineer Relationship Specialty Start Date End Date Agustín Jarvis MD [address] [place], [place] [address] [address] PCP - General 03/20/02 documented as of this encounter
--- OUTSIDE RECORDS SUMMARY | 2023-01-31 23:08 | External Medical Summary | Summary of Care ---
Author Name Unknown Organization [facility] Address [address] [place] [address] Phone [phone] Care Team Providers Care Auto Claim Representative Name Role Phone Agustín Jarvis MD Primary Care Provider [phone] Reason for Visit * Reason Onset Date Comments Appointment 08/08/2022 TRIAGE 08/08/2022 Encounter Details Date Type Department Care Team Description 08/08/2022 Telephone Otolaryngology, Christy Parks [address] [place] [phone] Services, Scheduling [address] [place] [address] Appointment (/); TRIAGE Allergies Active Allergy Reactions [...] encounter Miscellaneous Notes * Telephone Encounter - Julee Escalante LPN - 08/08/2022 8:16 AM EST Message left for patient to return call. Please obtain more information regarding appointment needed. No referral is seen in chart review. * Telephone Encounter - CHICA Castro - 08/08/2022 7:08 AM EST Please triage for an Urgent appt in [place]. Thank you Jayla documented in this encounter [...] D LEVEL ONCE IN A LIFETIME-USE SMARTSET# [id number] 1986 DXA Scan 1996 Zoster Vaccines (1 [...] Advance Directives occurred with: Patient Care Teams Auto Claim Representative Relationship Specialty Start Date End Date Agustín Jarvis MD [address] [place] [address] PCP - General 03/20/02 documented as of this encounter
--- OUTSIDE RECORDS SUMMARY | 2023-01-31 23:08 | External Medical Summary | Summary of Care ---
Author Name Unknown Organization [facility] Address [address] [place] [address] Phone [phone] Care Team Providers Care Briquette Operator Name Role Phone Agustín Jarvis MD Primary Care Provider [phone] Reason for Visit * Reason Comments Treatment Reclast * Episode Based Medications (Routine) - Closed Specialty Diagnoses / Procedures Referred By Contpatrick t Referred To Contact Diagnoses Age-related osteoporosis without current pathological fracture Procedures SC ZOLEDRONIC ACID 1MG Agustín Jarvis MD [address] [place] [address] [facility] [address] [address] Referral ID Status Reason Start Date Expiration Date Visits Re quested Visits Authorized [id number] Closed 07/18/2022 07/18/[phone] Encounter Details Date Type Department Care Team Description 07/31/2022 Hem/Onc Treatment Hematology/Oncology Treatment, [facility] [address] [place] [address] [facility], Chair6 Hem Onc [address] [place] [address] [place] [id number] Age-related osteoporosis without current pathological fracture* Allergies [...] she had a crown replaced last week. [facility] Care Plan ID is not set. 07/31/2022 [...] from the original note were not included. [id number] Zoledronic Acid Injection 5 mg/100 mL Brands: [...] about all medicines taken. Include prescription and hift-rgr-vcgkvzz medicines, vitamins, and herbal medicines. Speak with [...] is very important while taking this medicine. [place] your teeth and floss regularly. Keep all [...] you have any questions about this medicine. [email or web address] IMPORTANT NOTE: This document tells you briefly how to take your medicine, but it does not tell youall there is to know about it. Your doctor or pharmacist may give you other documents about your medicine. Please talk to them if you have any questions. Always follow their advice. There is a more complete description of this medicine available in Serbian. Scan this code on your smartphone or tablet or use the web address below. You can also ask your pharmacist for a printout. If you have any questions, please ask your pharmacist. The display and use of this drug information is subject to Terms of Use. Copyright(c) 2022 [employer]. 3269-3814 The [employer]. All rights reserved. This information is not intended as a substitute for professional medical care. Always follow your healthcare professional's instructions. * Pt Handout (on AVS) - [facility] PATIENT HANDOUT - 07/31/2022 1:54 PM EST Images from the original note were not included. [id number] Zoledronic Acid Injection 5 mg/100 mL Brands: [...] about all medicines taken. Include prescription and tvba-fjz-zzdnrnd medicines, vitamins, and herbal medicines. Speak with [...] is very important while taking this medicine. [place] your teeth and floss regularly. Keep all [...] you have any questions about this medicine. [email or web address] IMPORTANT NOTE: This document tells you briefly how to take your medicine, but it does not tell youall there is to know about it. Your doctor or pharmacist may give you other documents about your medicine. Please talk to them if you have any questions. Always follow their advice. There is a more complete description of this medicine available in Serbian. Scan this code on your smartphone or tablet or use the web address below. You can also ask your pharmacist for a printout. If you have any questions, please ask your pharmacist. The display and use of this drug information is subject to Terms of Use. Copyright(c) 2022 [employer]. 2651-9571 [employer], [employer]. All rights reserved. This information is not [...] D LEVEL ONCE IN A LIFETIME-USE SMARTSET# [id number] 1986 DXA Scan 1996 Zoster Vaccines (1 [...] Advance Directives occurred with: Patient Care Teams Briquette Operator Relationship Specialty Start Date End Date Agustín Jarvis MD [address] [place] [address] PCP - General 03/20/02 documented as of this encounter
--- OUTSIDE RECORDS SUMMARY | 2023-01-31 23:08 | External Medical Summary | Summary of Care ---
Author Name Unknown Organization [facility] Address [address] [place] [address] Phone [phone] Care Team Providers Care Bathroom Tiling Professional Name Role Phone Agustín Jarvis MD Primary Care Provider [phone] Encounter Details Date Type Department Care Team Description 08/08/2022 Telephone Otolaryngology [facility] [address] [place] [address] Roldan Mack DO [address] [place] [address] Allergies Active Allergy Reactions Severity Noted Date [...] Telephone Encounter - CHICA Woods - 08/08/2022 8:19 AM EST [facility] records have been scanned into pt's chart. Please advise on scheduling. CHICA Woods documented in this encounter Plan of Treatment Health Maintenance Due Date Last Done Comments COVID-19 Vaccine (#1) 01/23/1946 Pneumococcal Vaccine: 65+ Years (1 - PCV) 1952 Depression Screening, Annual for Pts 12 and Over 1958 Albumin/Creatinine Ratio 1964 DIABETES-EYE EXAM 1964 DIABETES-FOOT EXAM 1964 Hepatitis C Screening 1964 DTaP,Tdap,and Td Vaccines (1 - Tdap) 1965 VITAMIN D LEVEL ONCE IN A LIFETIME-USE SMARTSET# 05227 1986 DXA Scan 1996 Zoster Vaccines (1 [...] Advance Directives occurred with: Patient Care Teams Bathroom Tiling Professional Relationship Specialty Start Date End Date Agustín Jarvis MD [address] [place], [place] [phone] PCP - General 03/20/02 documented as of this encounter
--- OUTSIDE RECORDS SUMMARY | 2023-01-31 23:08 | External Medical Summary | Summary of Care ---
Author Name Unknown Organization [facility] Address [address] [place] [address] Phone [phone] Care Team Providers Care Wax Cutter Name Role Phone Agustín Jarvis MD Primary Care Provider [phone] Encounter Details Date Type Department Care Team Description 10/25/2022 Orders Only Radiology, [facility] [address], [place] [id number] Requisition, External Radiology [address] [place] [address] Hypertensive urgency* Allergies Active Allergy Reactions Severity Noted Date Comments Ivp Dye Hives 08/05/2006 Lisinopril Edema Other 06/01/2010 Angioedema documented as of this encounter (statuses as of 10/25/2022) Medications Medication Sig Dispensed Refills Start Date [...] as of this encounter (statuses as of 10/25/2022) Active Problems Problem Noted Date Osteoporosis 07/17/2022 [...] as of this encounter (statuses as of 10/25/2022) Social History Tobacco Use Types Packs/Day Years [...] Encounters Date Type Specialty Care Team Description 11/06/2022 Appointment Radiology 01/22/2023 Office Visit Otolaryngology Gary Kilgore PA-C [address] [place] [address] 02/14/2023 Hospital Encounter Endoscopy Hanny Graham, DO [address] [place] [address] 02/14/2023 Surgery Endoscopy Hanny Graham, DO [address] [place] [address] COLONOSCOPY FLEXIBLE PROXIMAL DIAGNOSTIC Scheduled Orders Name Type Priority Associated Diagnoses Orde r Schedule VASC RENAL VASCULAR SCAN-COMPLETE Medical Imaging Routine Hypertensive urgency Expected: 11/01/2022, Expires: 11/26/2023 Scheduled Procedures Name Priority Associated Diagnoses Date/Ti [...] D LEVEL ONCE IN A LIFETIME-USE SMARTSET# [id number] 1986 DXA Scan 1996 Zoster Vaccines (1 of 2) 1996 COLONOSCOPY-EVERY 3 YRS AGES 18-100 08/02/2017 08/02/2014, 08/02/2014, 08/23/2011, Additional history exists HbA1c 12/26/2021 06/28/2021, 06/28/2021 TSH 06/28/2022 06/28/2021, 04/0 11/2019, 04/24/2019, Additional history exists GFR 06/29/2022 06/29/2021, 06/04, 06/28/2021, Additional history exists Influenza Vaccine (FLU shot) (Season Ended) 2023 04/22/2019 COVID-19 Vaccine Completed 04/13/2022 GARDASIL-HPV IMMUNIZATION SERIES [...] as of this encounter Visit Diagnoses Diagnosis Hypertensive urgency- Primary Unspecified essential hypertension History of colon polyps Personal history of colonic polyps documented in this encounter Advance Directives Latest Code Status on File Code Status Date Activated Date Inactivated Comments No Code 06/28/2021 3:36 AM 06/29/2021 8:55 PM This order reflects the patients wishes and were consensually agreed upon. Question Answer Comments Discussion of Advance Directives occurred with: Patient Care Teams Wax Cutter Relationship Specialty Start Date End Date Agustín Jarvis MD [address] [place] [address] PCP - General 03/20/02 documented as of this encounter
--- OUTSIDE RECORDS SUMMARY | 2023-01-31 23:08 | External Medical Summary | Summary of Care ---
Author Name Unknown Organization [facility] Address [address] [place] [address] Phone [phone] Care Team Providers Care Parquetry Floor Layer Name Role Phone Agustín Jarvis MD Primary Care Provider [phone] Reason for Visit * Reason Comments NEW PATIENT Ear issues and jaw p ain Encounter Details Date Type Department Care Team Description 10/22/2022 Office Visit Otolaryngology, Christy Parks [address] [place] [address] Gary Kilgore PA-C [address] [place] [place] [address] Perforation of right tympanic membrane*; Arthralgia of left temporomandibular joint Allergies Active Allergy Reactions Severity Noted Date Comments Ivp Dye Hives 08/05/2006 Lisinopril Edema Other 06/01/2010 Angioedema documented as of this encounter (statuses as of 10/22/2022) Medications Medication Sig Dispensed Refills Start Date [...] as of this encounter (statuses as of 10/22/2022) Active Problems Problem Noted Date Osteoporosis 07/17/2022 [...] as of this encounter (statuses as of 10/22/2022) Social History Tobacco Use Types Packs/Day Years [...] Sign Reading Time Taken Comments Blood Pressure - - Pulse - - Temperature 36.7 C (98 F) 10/22/2022 7:58 AM EDT Respiratory Rate - - Oxygen Saturation - - Inhaled Oxygen Concentration - - Weight 64.8 kg (142 lb 12.8 oz) 10/22/2022 7:58 AM EDT Height 165.1 cm (5' 5") 10/22/2022 7:58 AM EDT Body Mass Index 23.76 10/22/2022 7:58 AM EDT documented in this [...] Progress Notes * Gary Kilgore PA-C - 10/22/2022 9:00 AM EDT Nursing Notes: Juana Schumacher LPN 10/22/22 0805 Signed Chief Complaint Patient presents with NEW PATIENT Ear issues and jaw pain Trista Almaraz is a 77 year old female who presents today for ear issues and jaw pain. Reports when she mad this appointment she had right ear pain-not currently. States she saw PCP and wax was removed. Noted that she has a hole in her ear drum. Does have a hx of b/l tube placement in 2019. States she is now having left side jaw pain thatt is causing some left ear pain. No other concerns voiced. History of Present Illness This 77 year old YO female is seen at the request of Agustín Jarvis MD for the evaluation of right TM perforation. The patient reported that she was seen by her pcp in March for cerumen impaction and right TM perforation was noted. She did have some pain at that time which has since resolved. She is now experiencing left sided jaw pain and intermittent otalgia. Patient was seen by [place] [facility] and started on otic drops. She has had an audiogram done there. She denied otorrhea or recent infections. 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 Lopez [facility] REMOVAL OF KIDNEY Right Dr Page [facility] [place] [place]AL OF TONSILS, UNDER AGE 13 Tonsillectomy [...] by mouth daily first thing in the morning.(at least 30 min prior to breakfast or other meds) Insulin Detemir 100 UNIT/ML Subcutaneous Solution (Levemir) Inject 15 Units before bedtime under the skin. 1 Each 12 No current facility-administered medications for this visit. Allergies Review of patient's allergies indicates: Allergen Reactions Ivp Dye Hives Prinivil [Lisinopril] Edema Other Angioedema Review of Systems Negative for constitutional, heart, lung, liver, kidney, digestive, hematologic, neurologic, rheumatologic, or endocrine complaints except as per history of present illness and past medical history Physical Exam Temp 36.7 C (98 F) (Temporal Artery) | Ht 1.651 m (5' 5") | Wt 64.8 kg (142 lb 12.8 oz) | BMI 23.76 kg/m | BSA 1.72 m General: This is a healthy appearing female [...] The left middle ear space was WNL TMJs: Palpation of both TMJs was done during excursion pain and crepitus elicited on left. Cranial Nerves: grossly intact. Nose: Septum nonobstructing, turbinates normal, no masses, polyps, or mucopus. Oral Cavity: Examination of the oral cavity revealed no mass lesions nor infection. The palate was noted to be intact without evidence of clefting. The tongue exhibited normal mobility. The palpated portion of the tongue base was soft. Mucosa was moist without lesion. The lips were free of lesion. Gums were free of inflammation. Dentition: Unremarkable Oropharynx: The oral pharynx was free of mass lesion or mucosal abnormality. The palate was noted to be without lesion. The uvula was normal appearing with no deviation or lesions. The tonsils were unremarkable. Neck: Visualization and palpation of the neck revealed no mass lesions, no thyromegaly or thyroid masses. No skin lesions or inflammatory processes were detected. The cervical musculature was normal to palpation. The parotid and submandibular glands were normal to palpation. Lymphatics (cervical): There were no palpable lymph nodes in the posterior triangle, submandibular triangle, jugulodigastric region, or central neck. Assessment and Plan: Perforation of right tympanic membrane (Primary) Arthralgia of left temporomandibular joint Plan: Findings and recommendations were discussed with the patient. Pertinent provider notes, labs,and imaging were reviewed. Follow-up in 3 months for recheck of right TM perforation. Discussed conservative measures for jaw pain and recommend physical therapy referral if no improvement following this. Gary Kilgore PA-C 10/22/2022 9:43 AM documented in this encounter Nursing Notes * Juana Schumacher LPN - 10/22/2022 8:00 AM EDT Chief Complaint Patient presents with NEW PATIENT Ear issues and jaw pain Trista Almaraz is a 77 year old female who presents today for ear issues and jaw pain. Reports when she mad this appointment she had right ear pain-not currently. States she saw PCP and wax was removed. Noted that she has a hole in her ear drum. Does have a hx of b/l tube placement in 2019. States she is now having left side jaw pain thatt is causing some left ear pain. No other concerns voiced. documented in this encounter Plan of Treatment Upcoming Encounters Date Type Specialty Care Team Description 01/22/2023 Office Visit Otolaryngology Gary Kilgore PA-C [address] [place] [address] 02/14/2023 Hospital Encounter Endoscopy Hanny Graham, DO [address] [place] [address] 02/14/2023 Surgery Endoscopy Hanny Graham, DO [address] [place] [address] COLONOSCOPY FLEXIBLE PROXIMAL DIAGNOSTIC Scheduled Procedures Name [...] D LEVEL ONCE IN A LIFETIME-USE SMARTSET# [id number] 1986 DXA Scan 1996 Zoster Vaccines (1 of 2) 1996 COLONOSCOPY-EVERY 3 YRS AGES 18-100 08/02/2017 08/02/2014, 08/02/2014, 08/23/2011, Additional history exists HgA1C 12/26/2021 06/28/2021, 06/28/2021 TSH FOR THYROID MEDICATION MONITORING YEARLY 06/28/2022 06/28/2021, 09/07/2019, 04/24/2019, Additional history exists GFR - Renal Function 06/29/2022 06/29/2021, 06/28/2021, 06/28/2021, Additional history exists Influenza Vaccine (FLU [...] membrane- Primary Perforation of tympanic membrane, unspecified Arthralgia of left temporomandibular joint Arthralgia of temporomandibular joint History of colon polyps Personal history of colonic polyps documented in this encounter Advance Directives Latest Code Status on File Code Status Date Activated Date Inactivated Comments No Code 06/28/2021 3:36 AM 06/29/2021 8:55 PM This order reflects the patients wishes and were consensually agreed upon. Question Answer Comments Discussion of Advance Directives occurred with: Patient Care Teams Parquetry Floor Layer Relationship Specialty Start Date End Date Agustín Jarvis MD [address] [place] [address] PCP - General 03/20/02 documented as of this encounter
--- OUTSIDE RECORDS SUMMARY | 2023-01-31 23:08 | External Medical Summary | Summary of Care ---
Author Name Unknown Organization [facility] Address [address] [place] [address] Phone [phone] Care Team Providers Care Printmaker Name Role Phone Agustín Jarvis MD Primary Care Provider [phone] Encounter Details Date Type Department Care Team Description 11/06/2022 Hospital Encounter Vascular Lab, [address] [address] Arrived Allergies Active Allergy Reactions Severity Noted Date Comments Ivp Dye Hives 08/05/2006 Lisinopril Edema Other 06/01/2010 Angioedema documented as of this encounter (statuses as of 11/07/2022) Medications Medication Sig Dispensed Refills Start Date [...] as of this encounter (statuses as of 11/07/2022) Active Problems Problem Noted Date Osteoporosis 07/17/2022 [...] as of this encounter (statuses as of 11/07/2022) Social History Tobacco Use Types Packs/Day Years [...] Gary Kilgore PA-C [address] [place] [address] 02/14/2023 Hospital Encounter Endoscopy Hanny Graham, DO [address] [place] [address] 02/14/2023 Surgery Endoscopy Hanny Graham, DO [address] [place] [address] COLONOSCOPY FLEXIBLE PROXIMAL DIAGNOSTIC Scheduled Procedures Name [...] D LEVEL ONCE IN A LIFETIME-USE SMARTSET# [id number] 1986 DXA Scan 1996 Zoster Vaccines (1 [...] Procedure Name Priority Date/Time Associated Diagnosis Comments [facility] RENAL VASCULAR SCAN-COMPLETE Routine 11/06/2022 9:24 AM EDT Hypertensive urgency documented in this encounter Results * [facility] RENAL VASCULAR SCAN-COMPLETE (11/06/2022 9:24 AM EDT) Anatomical Region Laterality Modality Abdomen, Vascular Ultrasound Narrative 11/06/2022 4:44 PM EDT VASCULAR LAB RESULTS DATE OF EXAMINATION: 11/06/22 INDICATION: hypertensive urgency RENAL ARTERY DUPLEX SCAN Immediately before proceeding with the vascular lab procedure reported below, the identity of the patient, the correct exam and the correct procedural site were verified. Hernandez scale, color flow and spectral doppler were performed for this examination. Duplex ultrasound demonstrates an aortic flow velocity of 87 centimeters per second. The right kidney is absent. The left renal artery is visualized. The peak systolic velocities are 166, 99, 129 and 107 centimeters per second at the origin, proximal, mid and distal renal artery segments, respectively. The renal resistive index is 0.83. The kloh-hj-bjfi length of the left kidney measured 10.4 centimeters. The left renal-aortic ratio is 1.9. The left renal vein is visualized and demonstrates normal flow. CONCLUSIONS: On the right:: Kidney is absent. On the left: There is no evidence of hemodynamically significant renal artery stenosis. The renal resistive indices are abnormal and may indicate parenchymal disease of the kidney. Agustín Jarvis MD RAD VASCULAR documented in this encounter Visit Diagnoses Diagnosis Hypertensive urgency Unspecified essential hypertension History of colon polyps Personal history of colonic polyps documented in this encounter Advance Directives Latest Code Status on File Code Status Date Activated Date Inactivated Comments No Code 06/28/2021 3:36 AM 06/29/2021 8:55 PM This order reflects the patients wishes and were consensually agreed upon. Question Answer Comments Discussion of Advance Directives occurred with: Patient Care Teams Printmaker Relationship Specialty Start Date End Date Agustín Jarvis MD [address] [place] [address] PCP - General 03/20/02 documented as of this encounter
--- OUTSIDE RECORDS SUMMARY | 2023-01-31 23:08 | External Medical Summary | Summary of Care ---
Author Name Unknown Organization [facility] Address [address] [place] [address] Phone [phone] Care Team Providers Care Senior Ssis Developer Name Role Phone Agustín Jarvis MD Primary Care Provider [phone] Reason for Visit * Reason Onset Date Comments Appointment 08/08/2022 TRIAGE 08/08/2022 Encounter Details Date Type Department Care Team Description 08/08/2022 Telephone Otolaryngology, Christy Parks [address] [place] [id number] Services, Scheduling [address] [place] [address] Appointment (/); TRIAGE Allergies Active Allergy Reactions Severity Noted Date Comments Ivp Dye Hives 08/05/2006 Lisinopril Edema Other 06/01/2010 Angioedema documented as of this encounter (statuses as of 08/20/2022) Medications Medication Sig Dispensed Refills Start Date [...] as of this encounter (statuses as of 08/20/2022) Active Problems Problem Noted Date Osteoporosis 07/17/2022 [...] as of this encounter (statuses as of 08/20/2022) Social History Tobacco Use Types Packs/Day Years [...] * Telephone Encounter - CHICA Castelan - 08/20/2022 7:57 AM EDT Letter sent. * Telephone Encounter - CHICA Woods - [...] states was unable to get appointment at [facility] until January. Patient states prefers sooner appointment in [place]. Patient denies ear pain or drainage bilaterally. Patient states has perforation of ear drum s/p infection. Patient denies known hearing loss. States hearing testing was completed previously and hearing loss in affected ear was "minimal". Please assist with first available appointment any provider in [place] with audiology. * Telephone Encounter - CHICA Castelan - 08/08/2022 9:45 AM EST Records from [facility] are scanned in chart. * Telephone Encounter - Magi Vu LPN - 08/08/2022 9:09 AM EST Patient is scheduled with [facility] ENT in September. Patient has not been recently seen by ENT. Per PCP note: Recent Right OE. No drainage at last visit. Diminished hearing. Perforated Right TM. Please advise on scheduling as they are requesting [place]. * Telephone Encounter - Julee Escalante LPN - 08/08/2022 8:16 AM EST Message left for patient to return call. Please obtain more information regarding appointment needed. No referral is seen in chart review. * Telephone Encounter - CHICA Castro - 08/08/2022 7:08 AM EST Please triage for an Urgent appt in [place]. Thank you Jayla documented in this encounter [...] D LEVEL ONCE IN A LIFETIME-USE SMARTSET# [id number] 1986 DXA Scan 1996 Zoster Vaccines (1 [...] Advance Directives occurred with: Patient Care Teams Senior Ssis Developer Relationship Specialty Start Date End Date Agustín Jarvis MD [address] [place], [place] [address] [address] PCP - General 03/20/02 documented as of this encounter
--- OUTSIDE RECORDS SUMMARY | 2023-01-31 23:09 | External Medical Summary | Summary of Care ---
Author Name Unknown Organization [facility] Address [address] [place] [address] Phone [phone] Care Team Providers Care Speech And Hearing Clinic Director Name Role Phone Agustín Jarvis MD Primary Care Provider [phone] Reason for Visit * Reason Comments Treatment Reclast * Episode Based Medications (Routine) - Closed Specialty Diagnoses / Procedures Referred By Contpatrick t Referred To Contact Diagnoses Age-related osteoporosis without current pathological fracture Procedures AL ZOLEDRONIC ACID 1MG Agustín Jarvis MD [address] [place] [address] [facility] Hem/Onc [facility] [address] [place] [address] Referral ID Status Reason Start Date Expiration Date Visits Re quested Visits Authorized [id number] Closed 07/18/2022 07/18/[phone] Encounter Details Date Type Department Care Team Description 07/31/2022 Hem/Onc Treatment Hematology/Oncology Treatment, [facility] [address] [place], [place] [phone] [facility], Chair6 Hem Onc [address] [place] [id number] Age-related osteoporosis without current pathological fracture* Allergies Active Allergy Reactions Severity Noted Date Comments Ivp Dye Hives 08/05/2006 Lisinopril Edema Other 06/01/2010 Angioedema documented as of this encounter (statuses as of 07/31/2022) Medications Medication Sig Dispensed Refills Start Date [...] as of this encounter (statuses as of 07/31/2022) Active Problems Problem Noted Date Osteoporosis 07/17/2022 [...] as of this encounter (statuses as of 07/31/2022) Social History Tobacco Use Types Packs/Day Years [...] kg (139 lb 9.6 oz) 07/31/2022 1:44 PM EST Height 165.1 cm (5' 5") 07/31/2022 [...] crown replacement via TT with Isaías Rosa [facility] and he feels it is safe to proceed with Reclastinfusion today. * Radha Miranda RN - 07/31/2022 1:50 PM EST Chair # 7 Pt presents today for Reclast. Pt verbalized that she had a crown replaced last week. [facility] Care Plan ID is not set. 07/31/2022 [...] from the original note were not included. [id number] Zoledronic Acid Injection 5 mg/100 mL Brands: [...] about all medicines taken. Include prescription and coxr-eci-cfyeftt medicines, vitamins, and herbal medicines. Speak with [...] is very important while taking this medicine. [place] your teeth and floss regularly. Keep all [...] you have any questions about this medicine. [email or web address] IMPORTANT NOTE: This document tells you briefly how to take your medicine, but it does not tell youall there is to know about it. Your doctor or pharmacist may give you other documents about your medicine. Please talk to them if you have any questions. Always follow their advice. There is a more complete description of this medicine available in [place]. Scan this code on your smartphone or tablet or use the web address below. You can also ask your pharmacist for a printout. If you have any questions, please ask your pharmacist. The display and use of this drug information is subject to Terms of Use. Copyright(c) 2022 [employer]. [employer]. All rights reserved. This information is not intended as a substitute for professional medical care. Always follow your healthcare professional's instructions. * Pt Handout (on AVS) - DAYNE PATIENT HANDOUT - 07/31/2022 1:54 PM EST Images from the original note were not included. [id number] Zoledronic Acid Injection 5 mg/100 mL Brands: [...] about all medicines taken. Include prescription and mxrz-omi-nzooetr medicines, vitamins, and herbal medicines. Speak with [...] is very important while taking this medicine. [place] your teeth and floss regularly. Keep all [...] you have any questions about this medicine. [email or web address] IMPORTANT NOTE: This document tells you briefly how to take your medicine, but it does not tell youall there is to know about it. Your doctor or pharmacist may give you other documents about your medicine. Please talk to them if you have any questions. Always follow their advice. There is a more complete description of this medicine available in [place]. Scan this code on your smartphone or tablet or use the web address below. You can also ask your pharmacist for a printout. If you have any questions, please ask your pharmacist. The display and use of this drug information is subject to Terms of Use. Copyright(c) 2022 [employer]. 2646-1328 [employer]. All rights reserved. This information is not [...] D LEVEL ONCE IN A LIFETIME-USE SMARTSET# [id number] 1986 DXA Scan 1996 Zoster Vaccines (1 [...] mg, IV Piggyback, ONCE, 1 dose, On Sat07/31/22 at 1545 Start Infusion 07/31/2022 2:22 PM EST 5 mg 400 mL/hr documented in this encounter Advance Directives Latest Code Status on File Code Status Date Activated Date Inactivated Comments No Code 06/28/2021 3:36 AM 06/29/2021 8:55 PM This order reflects the patients wishes and were consensually agreed upon. Question Answer Comments Discussion of Advance Directives occurred with: Patient Care Teams Speech And Hearing Clinic Director Relationship Specialty Start Date End Date Agustín Jarvis MD [address] [place] [address] [place] [address] PCP - General 03/20/02 documented as of this encounter
--- OUTSIDE RECORDS SUMMARY | 2023-01-31 23:09 | External Medical Summary | Continuity of Care Document ---
Author Name Unknown Organization [place] [address] [address] Address [address] [place], [place] [id number] Care Team Providers Care Servomechanism Designer Name Role Phone Agustín Jarvis Primary Care Physician [phone] Encounter [facility] [id number] Date(s): 02/08/22 - 02/08/22 [place] [address], [address] [place] [address] [phone] Encounter Diagnosis Atherosclerosis(Discharge Diagnosis) - 02/08/22 Discharge Disposition: Home or Self Care Attending Physician: MD Lyndsay, Wesley [place] Referring Physician: MD Jarvis Eric K Allergies, Adverse Reactions, Alerts Substance Reaction Severity Status enstonya juniorine juandice Active IVP dye hives Active CHECO [...] PO, Daily Start Date: 02/28/13 Status: Ordered predniSONE 50 mg oral tablet Start: 02/08/22 12:07:00 EDT, See Instructions, Disp# 3 tab, Refills: 0, 1 tab PO q8h Start 12 hr before procedure/study, Pharmacy: [id number] Start Date: 02/08/22 Status: Ordered Probiotic Formula Start: 06/04/17 14:23:00, 1 cap, PO, Daily Start Date: 06/04/17 Status: Ordered spironolactone 25 mg oral tablet Start: 06/12/12 14:40:00, 1 tab, PO, bid, Disp# 60 tab, Refills: 3, Pharmacy: [id number] Start Date: 06/12/12 Status: Ordered Vitamin D3 1000 intl units oral tablet Start: 01/29/14 14:20:00, 1 tab, PO, Daily Start Date: 01/29/14 Status: Ordered Mental Status 02/08/22 Barriers to Learning one year None evide nt, Vision impairment, Other: Mandatory Health Literacy Documentation Yes Health Literacy Communication Barriers N ever Primary Language Urdu Problem List Condition Effective Dates Status Health Status Inform ant Below knee amputation(Confirmed) Active Asthma(Confirmed) Active Atherosclerosis(Confirmed) Active Carotid stenosis(Confirmed) Active Carotid artery stenosis(Confirmed) Active Cataract(Confirmed) Active CKD (chronic kidney disease) , stage III(Confirmed) Active Diabetic foot ulcer(Confirmed) Active Pain of right foot(Confirmed) Active GERD(Confirmed) Active Hx of amputation(Confirmed) Active S/P transmetatarsal amputati on of foot(Confirmed) Active S/P amputation of lesser toe(Confirmed) Active S/P femoral-tibial bypass(Confirmed) Active S/p bilateral carotid endarterectomy(Confirmed) Active Hyperlipidemia(Confirmed) Active HYPERTENSION.(Confirmed) Active Hypothyroid(Confirmed) Active Renal cancer(Confirmed) Active MRSA (methicillin resistant Staphylococcus aureus)(Confirmed) Active Peripheral artery disease(Confirmed) Active Peripheral vascular disease(Confirmed) Active CARMELITA (renal artery stenosis)(Confirmed) Active Secondary hyperparathyroidism(Confirmed) Active Postop check(Confirmed) Active Thyroid disease(Confirmed) Active Type II diabetes mellitus(Confirmed) Active Ulcer of heel(Confirmed) Active Vaginitis(Confirmed) Active Weight disorder(Confirmed) Active Diagnosis Diagnosis Type Effective Dates Health Status Cl inical Service Informant Atherosclerosis Discharge Diagnosis 02/08/22 Procedures Procedure Date Related Diagnosis Body Site Status LLE Angiogram w/ ROLLER LEVELER OPERATOR peroneal artery 04/21/21 Completed LLE angiogram without intervention 03/25/20 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 09/02/19 Completed lle angio w aircraft captain l peroneal a nd stent l common iliac art 07/15/19 Completed Abdominal aortogram w/ ROLLER LEVELER OPERATOR/s tent of paulo PONCHO 07/06/19 Completed RLE NEWSPAPER DELIVERY COUNSELOR - Endarterectomy of the common femoral artery wi/ bovine patch and fem-ant tib in situ bypass 04/17/19 Compl eted RLE Angiogram without intervention 04/03/19 Completed Revision RLE transmetatarsal amputation 11/11/18 Completed RLE angiogram w/ ROLLER LEVELER OPERATOR peronea l and popliteal artery 10/10/18 Completed Amputation of left 1st toe a nd metatarsal 02/11/18 Completed RLE angiogram w/ ROLLER LEVELER OPERATOR peroneal 11/22/17 Completed RLE angiogram w/ ROLLER LEVELER OPERATOR peronea l, TP trunk and pop 09/16/17 Completed Amputation of Right 3rd toe 07/12/17 Completed RLE Surgical debridement of foot wound, transmetatarsal amp 4th toe, excision 3rd metatartsal and prox phalnx 06/19/17 Completed RLE angiogram w/ ROLLER LEVELER OPERATOR/stent p opliteal artery, ROLLER LEVELER OPERATOR peroneal 06/14/17 Completed RLE 5th toe amputation 04/30/17 Co mpleted RLE angiogram with intervention 02/15/17 Completed RLE Mechanical Atherectomy a nd ROLLER LEVELER OPERATOR of popliteal, thrombolysis/TPA and recheck 02/15/17 [...] Most recent to oldest [Reference Range]: 1 2 Heart Rate 58 bpm (02/08/22 11:36 AM) Blood Pressure 128/62mmHg (02/08/22 11:38 AM) 120/60mmHg (02/08/22 11:36 AM) Cuff Pulse Pressure 66 mmHg (02/08/22 11:38 AM) 60 mmHg (02/08/22 11:36 AM) BP Location # 1 Right Arm (02/08/22 11:38 AM) Left Arm (02/08/22 11:36 AM) Social History Social History Type Response Smoking Status Never smoked cigaret robert Sex Female Care Team Personnel Name: MD Matheus, Agustín Sánchez Address: [address] [place] [address]
--- OUTSIDE RECORDS SUMMARY | 2023-01-31 23:09 | External Medical Summary | Summary of Care ---
Author Name Unknown Organization [facility] [place] [address] Care Team Providers Care Armored Service Technician Name Role Phone Agustín Jarvis MD Primary Care Provider [phone] Reason for Visit * Reason Onset Date Comments Scheduling 07/17/2022 reclast Encounter Details Date Type Department Care Team Description 07/17/2022 Telephone Hematology/Oncology Treatment, [address] [phone] Agustín Jarvis MD [address] [place], [place] [phone] Scheduling (reclast) Allergies Active Allergy Reactions Severity Noted Date Comments Ivp Dye Hives 08/05/2006 Lisinopril Edema Other 06/01/2010 Angioedema documented as of this encounter (statuses as of 07/17/2022) Medications Medication Sig Dispensed Refills Start Date [...] Losartan Potassium 100 MG Tablet Take 1 Tab by mouth daily. 0 02/09/2016 Active omeprazole (PRILOSEC) 40 MG CPDR 0 12/06/2016 Active carvedilol (COREG) 25 MG Tablet 1/2 tab in the am and 1 tab in the pm 0 01/09/2017 Active levothyroxine (LEVOXYL) 175 MCG Tablet Take 175 mcg by mouth daily first thing in the morning. (at least 30 min prior to breakfast or other meds) 0 Active Insulin Detemir 100 UNIT/ML Subcutaneous Solution (Levemir) Inject 15 Units before bedtime under the skin. 1 Each 12 06/29/2021 Active documented as of this encounter (statuses as of 07/17/2022) Active Problems Problem Noted Date Osteoporosis 07/17/2022 [...] as of this encounter (statuses as of 07/17/2022) Social History Tobacco Use Types Packs/Day Years [...] encounter Miscellaneous Notes * Telephone Encounter - Aubrey Velazquez RN - 07/17/2022 1:11 PM EST Received scanned order, built plan and sent treatment plan to provider for signature Route to scheduling when auth is received and signed treatment plan is received Reclast - [address] Jarvis is the provider documented in this encounter Plan of Treatment Health Maintenance Due Date Last Done Comments DXA Scan 1945 COVID-19 Vaccine (#1) 01/23/1946 Pneumococcal Vaccine: 65+ Years (1 - PCV) 1952 Depression Screening, Annual for Pts 12 and Over 1958 Alb / Creat Ratio 1964 DIABETES-EYE EXAM 1964 DIABETES-FOOT EXAM 1964 Hepatitis C Screening 1964 DTaP,Tdap,and Td Vaccines (1 - Tdap) 1965 Zoster Vaccines (1 of 2) 1996 COLONOSCOPY-EVERY 3 YRS AGES 18-100 08/02/2017 08/02/2014, 08/02/2014, 08/23/2011, Additional history exists HgA1C 12/26/2021 06/28/2021, 06/28/2021 Influenza Vaccine (FLU shot) (#1) 2022 TSH FOR THYROID MEDICATION MONITORING YEARLY 06/28/2022 06/28/2021, 09/07/2019, 04/24/2019, Additional history exists GFR - Renal Function 06/29/2022 06/29/2021, 06/28/2021, 06/28/2021, Additional history exists GARDASIL-HPV IMMUNIZATION SERIES [...] Advance Directives occurred with: Patient Care Teams Armored Service Technician Relationship Specialty Start Date End Date Agustín Jarvis MD [address] [place] [address] PCP - General 03/20/02 documented as of this encounter
--- OUTSIDE RECORDS SUMMARY | 2023-01-31 23:09 | External Medical Summary | Continuity of Care Document ---
Author Name Unknown Organization [place] [address] [facility] Address [address] [place], [place] [id number] Care Team Providers Care Shoe Ironer Name Role Phone JarvisAgustín Primary Care Physician [phone] [id number] Date(s): 02/06/22 - 02/06/22 [place] [address] [address], [address] [place] [address] [phone] Discharge Disposition: Home or Self Care Attending Physician: MD Umana Eugene J Referring Physician: MD Umana Eugene J Allergies, Adverse Reactions, Alerts Substance Reaction Severity Status enstonya tripp brito Active IVP dye hives Active CHECO [...] q8h Start 12 hr before procedure/study, Pharmacy: [id number] Start Date: 02/08/22 Status: Ordered Probiotic Formula Start: 06/04/17 14:23:00, 1 cap, PO, Daily Start Date: 06/04/17 Status: Ordered spironolactone 25 mg oral tablet Start: 06/12/12 14:40:00, 1 tab, PO, bid, Disp# 60 tab, Refills: 3, Pharmacy: [id number] Start Date: 06/12/12 Status: Ordered Vitamin D3 1000 intl units oral tablet Start: 01/29/14 14:20:00, 1 tab, PO, Daily Start Date: 01/29/14 Status: Ordered Problem List Condition Effective Dates Status Health [...] heel(Confirmed) Active Vaginitis(Confirmed) Active Weight disorder(Confirmed) Active Procedures Procedure Date Related Diagnosis Body Site Status LLE Angiogram w/ HORN PLAYER peroneal artery 04/21/21 Completed LLE angiogram without intervention 03/25/20 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 09/02/19 Completed lle angio w steamboat captain l peroneal a nd stent l common iliac art 07/15/19 Completed Abdominal aortogram w/ HORN PLAYER/s tent of paulo PONCHO 07/06/19 Completed RLE CANDY BAR ATTENDANT - Endarterectomy of the common femoral artery wi/ bovine patch and fem-ant tib in situ bypass 04/17/19 Compl eted RLE Angiogram without intervention 04/03/19 Completed Revision RLE transmetatarsal amputation 11/11/18 Completed RLE angiogram w/ HORN PLAYER peronea l and popliteal artery 10/10/18 Completed Amputation of left 1st toe a nd metatarsal 02/11/18 Completed RLE angiogram w/ HORN PLAYER peroneal 11/22/17 Completed RLE angiogram w/ HORN PLAYER peronea l, TP trunk and pop 09/16/17 Completed Amputation of Right 3rd toe 07/12/17 Completed RLE Surgical debridement of foot wound, transmetatarsal amp 4th toe, excision 3rd metatartsal and prox phalnx 06/19/17 Completed RLE angiogram w/ HORN PLAYER/stent p opliteal artery, HORN PLAYER peroneal 06/14/17 Completed RLE 5th toe amputation 04/30/17 Co mpleted RLE angiogram with intervention 02/15/17 Completed RLE Mechanical Atherectomy a nd HORN PLAYER of popliteal, thrombolysis/TPA and recheck 02/15/17 Completed Nephrectomy 04/2013 Completed Vascular surgery 02/25/13 Complete d Popliteal artery 2 02/2013 Comple prisca Plantar wart 3 01/2013 Completed Planters Warts Removed From Foor 2012 Completed Cardiac catheterization 11/21/11 C ompleted Colonoscopy 2012 Completed Attempted Kidney Stent-Right 2011 Completed bilateral [...] Exam Date Time Procedure Performing Provider Status 02/06/22 3:56 PM VL Lower Ext Arterial Duplex Limited Judi Hart; Final Notes: (VL Lower Ext Arterial Duplex Limited) Reason For Exam: post op bypass VL Lower Ext Arterial Duplex Limited [facility] FINAL REPORT Name: BARRON BOND : 1945 Visit: [id number] Date: 06 Feb 2022 TYPE OF TEST: Extremity Arterial Duplex REASON FOR TEST Bypass graft INTERPRETATION/FINDINGS Arterial duplex imaging performed of the LEFT lower extremity arteries and popliteal artery to peroneal artery bypass graft with vein: 1. No hemdynamically significant stenosis in the distal external iliac, common femoral, proximal profunda femoris or superficial femoral inflow arteries. 2. Patent [id number] popliteal artery to peroneal artery bypass graft with no evidence of stenosis at the proximal anastomosis, throughout the graft or at the distal anastomosis. A monophasic signal is demonstrated in the mid and distal segments of the graft. Low mid graft velocity of 27.2 cm/s suggests a compromised graft. 3. 75-99% stenosis (PSV 435 cm/sec) of the outflow peroneal artery just distal to the BPG distal anastomosis. 4. Monophasic flow is insonated in the peroneal and istal posterior tibial arteries. Retrograde, monophasic flow in insonated in the distal anterior tibial artery. 5. The left ankle/brachial index is 0.48 (severely reduced). Left digit pressure is 42 mmHg. 6. Unable to obtain right ankle/brachial index due to right leg amputation. Compared to the previous study performed 04/13/2021, the left ARABELLA has decreased from 0.56 to 0.48; otherwise, there does not appear to be any significant change. IMPRESSION/COMMENTS I have personally reviewed the data relevant to the interpretation of this study. TECHNOLOGIST: Judi SEXTON, [facility], T PHYSICIAN: Wesley Umana M.D. Signed: 02/06/2022 04:20 PM Final Dictated by:MD Umana Eugene J Dictated DT/TM:02/06/2022 4:20 Signed by:MD Umana Eugene J Signed (Electronic Signature):02/06/2022 4:20 p Transcribed by:EJS Social History Social History Type Response Smoking Status Never smoked cigaret robert Sex Female Note * MD Umana Eugene J: VERIFY, PERFORM, VERIFY, TRANSCRIBE Event Display: Report Authored Date: [id number] [facility] FINAL REPORT Name: BARRON BOND : 1945 Visit: [id number] Date: 06 Feb 2022 TYPE OF TEST: Extremity Arterial Duplex REASON FOR TEST Bypass graft INTERPRETATION/FINDINGS Arterial duplex imaging performed of the LEFT lower extremity arteries and popliteal artery to peroneal artery bypass graft with vein: 1. No hemdynamically significant stenosis in the distal external iliac, common femoral, proximal profunda femoris or superficial femoral inflow arteries. 2. Patent [id number]-[id number] popliteal artery to peroneal artery bypass graft with no evidence of stenosis at the proximal anastomosis, throughout the graft or at the distal anastomosis. A monophasic signal is demonstrated in the mid and distal segments of the graft. Low mid graft velocity of 27.2 cm/s suggests a compromised graft. 3. 75-99% stenosis (PSV 435 cm/sec) of the outflow peroneal artery just distal to the BPG distal anastomosis. 4. Monophasic flow is insonated in the peroneal and istal posterior tibial arteries. Retrograde, monophasic flow in insonated in the distal anterior tibial artery. 5. The left ankle/brachial index is 0.48 (severely reduced). Left digit pressure is 42 mmHg. 6. Unable to obtain right ankle/brachial index due to right leg amputation. Compared to the previous study performed 04/13/2021, the left ARABELLA has decreased from 0.56 to 0.48; otherwise, there does not appear to be any significant change. IMPRESSION/COMMENTS I have personally reviewed the data relevant to the interpretation of this study. TECHNOLOGIST: Judi SEXTON, RD, RVT PHYSICIAN: Wesley Umana M.D. Signed: 02/06/2022 04:20 PM Final Dictated by:MD Umana Eugene J Dictated DT/TM:02/06/2022 4:20 Signed by:MD Umana Eugene J Signed (Electronic Signature):02/06/2022 4:20 p Transcribed by:[facility] Care Team Personnel Name: MD Matheus, Agustín Sánchez Address: [address] [place] [id number] [place]
--- OUTSIDE RECORDS SUMMARY | 2023-01-31 23:09 | External Medical Summary | Continuity of Care Document ---
Author Name Unknown Organization [place] [address] [address] Address [address] [place], [place] [id number] Care Team Providers Care House Carpenter Name Role Phone Agustín Jarvis Primary Care Physician [phone] [id number] Date[facility]s): 07/05/22 - 07/05/22 [facility] [address], [address] [place] [address] [phone] Encounter Diagnosis Atherosclerosis(Discharge Diagnosis) - 07/05/22 Discharge Disposition: Home or Self Care Attending Physician: EDILIA Pastor Lynn Referring Physician: MD Jarvis Eric K Allergies, Adverse Reactions, Alerts Substance Reaction Severity Status ensourane tripp junedaice Active IVP dye hives Active CHECO Inhibitors Swelling Hives Active Assessment and Plan Extracted from: Title:Clinical Document Author:EDILIA Pasotr Lynn Date:07/05/22 [facility] OUTPATIENT NOTE Name: BARRON ALMARAZ Patient Number: [id number] : 1945 Date of Service: 07/05/2022 Chief Complaint: _Follow-up after left leg angio HPI: _Mrs. Almaraz is a middle-aged female who presents to Dr. Umana's vascular surgery clinic today for weekly follow-up visit after undergoing a left leg angiography with lithotripsy of her peroneal artery. Patient overall states her leg feels great. She denies any complaints or concerns related to it. She states that her left heel ulcer even seems to be somewhat improved. She is having some right lateral hip discomfort and episodic numbness/tingling in the right leg since her procedure. She denies any problems with her right groin puncture site. She denies any wound opening or skin ulcers on her right leg below-knee amputation stump. She denies fevers chills nausea vomiting or other concerns. Current Home Meds: (Last Updated 07/05 14:22) NIFEdipine (NIFEdipine (Eqv-Procardia XL) 60 mg oral tablet, extended release) 60 mg PO Daily acetaminophen 500 mg prn pain atorvastatin 80 [...] delayed release tablet) 20 mg PO bid predniSONE (predniSONE 50 mg oral tablet) 1 tab PO q8h Start 12 hr before procedure/study predniSONE (predniSONE 50 mg oral tablet) 1 tab PO q8h Start 12 hr before procedure/study spironolactone (spironolactone 25 mg oral tablet) 25 mg PO bid Allergies and Sensitivities: ensourane [...] II diabetes mellitus OBJECTIVE Vitals: Last Updated 03/01/22 12:59 Date Temp BP Location Pulse RR SpO2 Pain 03/01/22 164/58 Left Arm 67 98 03/01/22 0 02/08/22 128/62 Right Arm Vital Signs are the last 3 documented. [...] alert and oriented without any focal deficits. Her right groin puncture site is well-healed. Her left lower extremity pulses are nonpalpable. Her toes have brisk capillary refill. Her heel ulcer is basically healed. ASSESSMENT: _ PLAN: _ 1 ) _peripheral arterial disease, status post left leg angio with lithotripsy of the peroneal artery Patient is doing well from her recent procedure. Lithotripsy was performed in her femoral to peroneal artery bypass outflow artery in order to maintain its patency. She had excellent results posttreatment. She has no new complaints at this time. She will return to the office in 3 months for reevaluation with an ultrasound prior to that visit. She is advised to call with any other questions and to follow-up with her family physician regarding her right hip pain. She is agreeable to this plan. Thank you for letting us participate in the care of this patient. Medications acetaminophen Start: 04/07/20 10:46:00 EST, 500 [...] Ordered predniSONE 50 mg oral tablet Start: 06/14/22 11:11:00 EST, See Instructions, Disp# 3 tab, Refills: 0, 1 tab PO q8h Start 12 hr before procedure/study, Pharmacy: [facility] Start Date: 06/14/22 Status: Ordered predniSONE 50 mg oral tablet Start: 02/08/22 12:07:00 EDT, See Instructions, Disp# 3 tab, Refills: 0, 1 tab PO q8h Start 12 hr before procedure/study, Pharmacy: [facility] Start Date: 02/08/22 Status: Ordered Probiotic Formula Start: 06/04/17 14:23:00, 1 cap, PO, Daily Start Date: 06/04/17 Status: Ordered spironolactone 25 mg oral tablet Start: 06/12/12 14:40:00, 1 tab, PO, bid, Disp# 60 tab, Refills: 3, Pharmacy: [id number] Start Date: 06/12/12 Status: Ordered Vitamin D3 [...] Cl inical Service Informant Atherosclerosis Discharge Diagnosis 07/05/22 Procedures Procedure Date Related Diagnosis Body Site Status LLE Angiogram w/ LIQUID SUGAR FORTIFIER peroneal artery 04/21/21 Completed LLE angiogram without intervention 03/25/20 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 09/02/19 Completed lle angio w forestry consultant l peroneal a nd stent l common iliac art 07/15/19 Completed Abdominal aortogram w/ LIQUID SUGAR FORTIFIER/s tent of paulo PONCHO 07/06/19 Completed RLE FLOOR LAYER APPRENTICE - Endarterectomy of the common femoral artery wi/ bovine patch and fem-ant tib in situ bypass 04/17/19 Compl eted RLE Angiogram without intervention 04/03/19 Completed Revision RLE transmetatarsal amputation 11/11/18 Completed RLE angiogram w/ LIQUID SUGAR FORTIFIER peronea l and popliteal artery 10/10/18 Completed Amputation of left 1st toe a nd metatarsal 02/11/18 Completed RLE angiogram w/ LIQUID SUGAR FORTIFIER peroneal 11/22/17 Completed RLE angiogram w/ LIQUID SUGAR FORTIFIER peronea l, TP trunk and pop 09/16/17 Completed Amputation of Right 3rd toe 07/12/17 Completed RLE Surgical debridement of foot wound, transmetatarsal amp 4th toe, excision 3rd metatartsal and prox phalnx 06/19/17 Completed RLE angiogram w/ LIQUID SUGAR FORTIFIER/stent p opliteal artery, LIQUID SUGAR FORTIFIER peroneal 06/14/17 Completed RLE 5th toe amputation 04/30/17 Co mpleted RLE angiogram with intervention 02/15/17 Completed RLE Mechanical Atherectomy a nd LIQUID SUGAR FORTIFIER of popliteal, thrombolysis/TPA and recheck 02/15/17 Completed Nephrectomy 1 04/2013 Completed Vascular surgery 02/25/13 Complete d Popliteal artery 2 02/2013 Comple prisca Plantar wart 3 01/2013 Completed Planters Warts Removed From [facility] 2012 Completed Cardiac catheterization 11/21/11 C ompleted Colonoscopy 2011 Completed Attempted Kidney Stent-Right 2010 Completed bilateral cataracts 2009 Compl eted Endoscopy 2008 Completed L carotidendartectomy 2002 Com pleted L breast biopsy 1997 Completed Rt carotidendarterectomy 1995 Completed Cholecystectomy 1988 Completed complete hysterectomy 1976 Com pleted partial oophorectomy 1970 Comp leted sinus polyp 1970 Completed Appendectomy 196 Completed Tonsillectomy 1950 Completed Duplex Completed Duplex Completed 1right kidney 2bypass 3removal of the left foot Social History Social History Type Response Smoking Status Never smoked cigaret robert Sex Female Patient Care team information Personnel Name: MD Matheus, Agustín Sánchez Address: Address: [address] [place] [address]
--- OUTSIDE RECORDS SUMMARY | 2023-01-31 23:09 | External Medical Summary | Summary of Care ---
Author Name Unknown Organization [facility] [place] [address] Care Team Providers Care Warehousing Technician Name Role Phone Agustín Jarvis MD Primary Care Provider [phone] Reason for Visit * Reason Onset Date Comments Scheduling 07/17/2022 reclast Encounter Details Date Type Department Care Team Description 07/17/2022 Telephone Hematology/Oncology Treatment, [address] [id number] Agustín Jarvis MD [address] [place], [place] [phone] Scheduling (reclast) Allergies Active Allergy Reactions Severity Noted Date Comments Ivp Dye Hives 08/05/2006 Lisinopril Edema Other 06/01/2010 Angioedema documented as of this encounter (statuses as of 07/25/2022) Medications Medication Sig Dispensed Refills Start Date [...] as of this encounter (statuses as of 07/25/2022) Active Problems Problem Noted Date Osteoporosis 07/17/2022 [...] as of this encounter (statuses as of 07/25/2022) Social History Tobacco Use Types Packs/Day Years [...] Miscellaneous Notes * Telephone Encounter - CHICA Nelson - 07/25/2022 9:53 AM EST Pt scheduled for 07/31 and is aware. * Telephone Encounter - Robyn Segal LPN - 07/23/2022 11:11 AM EST Attempted to contact pt l/m on answering machine for pt to call the office. * Telephone Encounter - Robyn Segal LPN - 07/20/2022 11:29 AM EST Attempted to contact pt l/m on answering machine for pt to call the office. * Telephone Encounter - Aubrey Velazquez RN - 07/18/2022 4:26 PM EST Precert 07/18/2022 4:21 PM CHICA Molina - - Note DRUG NAME: Zoledronic acid AUTH #: NA VALID DATES: 07/18/2022-07/18/2023 CLINIC STOCK: Yes VISITS/UNIT APPROVED: 99 Pt is ready to be scheduled * Telephone Encounter - Aubrey Velazquez RN - 07/18/2022 10:47 AM EST Received signed treatment plan * Telephone Encounter - Aubrey Velazquez RN - 07/17/2022 1:11 PM EST Received scanned order, built plan and sent treatment plan to provider for signature Route to scheduling when auth is received and signed treatment plan is received Reclast - [address] Jarvis is the provider documented in this encounter Plan of Treatment Upcoming Encounters Date Type Specialty Care Team Description 07/31/2022 Hem/Onc Treatment Hematology Oncology [facility], Chair6 Hem Onc [address] [place] Barros [address] Health Maintenance Due Date Last Done Comments COVID-19 Vaccine (#1) 01/23/1946 Pneumococcal Vaccine: 65+ Years (1 - PCV) 1952 Depression Screening, Annual for Pts 12 and Over 1958 Alb / Creat Ratio 1964 DIABETES-EYE EXAM 1964 DIABETES-FOOT EXAM 1964 Hepatitis C Screening 1964 DTaP,Tdap,and Td Vaccines (1 - Tdap) 1965 VITAMIN D LEVEL ONCE IN A LIFETIME-USE SMARTSET# 65795 1986 DXA Scan 1996 Zoster Vaccines (1 [...] Advance Directives occurred with: Patient Care Teams Warehousing Technician Relationship Specialty Start Date End Date Agustín Jarvis MD [address] [facility] [place] [address] PCP - General 03/20/02 documented as of this encounter
--- OUTSIDE RECORDS SUMMARY | 2023-01-31 23:09 | External Medical Summary | Summary of Care ---
Author Name Unknown Organization [facility] [place] [address] Care Team Providers Care Software Writer Name Role Phone Agustín Jarvis MD Primary Care Provider [phone] Reason for Visit * Reason Onset Date Comments Scheduling 07/17/2022 reclast Encounter Details Date Type Department Care Team Description 07/17/2022 Telephone Hematology/Oncology Treatment, [address] [phone] Agustín Jarvis MD [address] [place], [place] [phone] Scheduling (reclast) Allergies Active Allergy Reactions Severity Noted Date Comments Ivp Dye Hives 08/05/2006 Lisinopril Edema Other 06/01/2010 Angioedema documented as of this encounter (statuses as of 07/18/2022) Medications Medication Sig Dispensed Refills Start Date [...] as of this encounter (statuses as of 07/18/2022) Active Problems Problem Noted Date Osteoporosis 07/17/2022 [...] as of this encounter (statuses as of 07/18/2022) Social History Tobacco Use Types Packs/Day Years [...] D LEVEL ONCE IN A LIFETIME-USE SMARTSET# 44670 1986 DXA Scan 1996 Zoster Vaccines (1 [...] Advance Directives occurred with: Patient Care Teams Software Writer Relationship Specialty Start Date End Date Agustín Jarvis MD 96 [facility] [place] [address] PCP - General 03/20/02 documented as of this encounter
--- OUTSIDE RECORDS SUMMARY | 2023-01-31 23:09 | External Medical Summary | Continuity of Care Document ---
Author Name Unknown Organization [place] [address] Address [address] [place], [place] [id number] Care Team Providers Care Attorney Law Clerk Name Role Phone Agustín Jarvis Primary Care Physician [phone] [id number] Date(s): [facility]/01[facility]22 - 03/01/22 [facility] [address] [place] [address] [phone] Encounter Diagnosis Peripheral vascular disease(Discharge Diagnosis) - 03/01/22 Discharge Disposition: Home or Self Care Attending Physician: EDILIA Pastor Lynn Referring Physician: MD Jarvis Eric K Allergies, Adverse Reactions, Alerts Substance Reaction Severity Status ensourane tripp singhice Active IVP dye hives Active CHECO Inhibitors Swelling Hives Active Assessment and Plan Extracted from: Title:Clinical Document Author:EDILIA Pastor Lynn Date:03/01/22 [facility] OUTPATIENT NOTE Name: BARRON ALMARAZ Patient Number: [id number] : 1945 Date of Service: 03/01/2022 Chief Complaint: _Follow-up after left leg angio HPI: _Mrs. Almaraz is a middle-aged female who presents to Dr. Umana's vascular surgery clinic today for a 2-week follow-up visit after undergoing a left leg angiography with BULK STATION OPERATOR and stenting of her distal SFA. The procedure was recommended due to a stenosis noted just proximal to her femoral to peroneal bypass in order to maintain its patency. Patient denies any complaints or concerns at this time. She states that her right groin puncture has healed well. She denies any new pain or discoloration of her left foot. She continues to have a small left heel ulceration, but states that it is doing well. She does not ambulate long distances due to a right leg amputation, and has not noticed any left calf claudication. Current Home Meds: (Last Updated 03/01 12:59) NIFEdipine (NIFEdipine (Eqv-Procardia XL) 60 mg oral [...] Vital Signs are the last 3 documented. Orthostatic: Last Updated 02/11/13 01:30 Date Lying Pulse Sitting Pulse Standing Pulse 02/11/13 149/67 75 149/61 82 132/74 74 Orthostatic blood pressures are the last 3 documented. Height and Weight: Last Updated 04/07/20 11:16 Date BMI Wt(kg) Wt(lb) Method Ht(cm) (ft-in) Method 04/07/20 70 154 Standing Scale 07/02/19 63.1 139 06/08/19 65.3 144 Standing Scale Heights and Weights are the last 3 documented. Physical Exam Constitutional: In general patient is a healthy-appearing well-nourished well-developed middle-aged female no distress. Her right groin puncture site is well-healed. There is no hematoma ecchymosis or discharge. She has a palpable femoral pulse. Her left toes demonstrate brisk capillary refill and are warm and pink. Her left heel continues to have an ulceration which is about the size of a pencil eraser with surrounding callus. ASSESSMENT: _ PLAN: _ 1 ) _peripheral arterial disease Patient is a longstanding history of severe peripheral arterial disease. Her recent procedure was performed to maintain patency of her bypass. She is overall doing well since her procedure. We will have her return to the office in 3 months with an ultrasound of her bypass prior to that visit. She is advised to call any questions or concerns. She is also advised to call if she develops a worsening wound on her left heel. She is agreeable to this plan. Thank [...] q8h Start 12 hr before procedure/study, Pharmacy: [id number] Start Date: 02/08/22 Status: Ordered Probiotic Formula Start: 06/04/17 14:23:00, 1 cap, PO, Daily Start Date: 06/04/17 Status: Ordered spironolactone 25 mg oral tablet Start: 06/12/12 14:40:00, 1 tab, PO, bid, Disp# 60 tab, Refills: 3, [id number] Start Date: 06/12/12 Status: Ordered Vitamin D3 1000 intl units oral tablet Start: 01/29/14 14:20:00, 1 tab, PO, Daily Start Date: 01/29/14 Status: Ordered Mental Status 03/01/22 Barriers to Learning one year None evide nt, Vision impairment, Other: Mandatory Health Literacy Documentation Yes Health Literacy Communication Barriers N ever Primary Language Citizen Of [place] Problem List Condition Confirmation Course Effective Dates [...] Service Informant Peripheral vascular disease Discharge Diagnosis 03/01/22 Procedures Procedure Date Related Diagnosis Body Site Status LLE Angiogram w/ BULK STATION OPERATOR peroneal artery 04/21/21 Completed LLE angiogram without intervention 03/25/20 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 09/02/19 Completed lle angio w station captain l peroneal a nd stent l common iliac art 07/15/19 Completed Abdominal aortogram w/ BULK STATION OPERATOR/s tent of paulo PONCHO 07/06/19 Completed RLE MILD DISABILITIES TEACHER - Endarterectomy of the common femoral artery wi/ bovine patch and fem-ant tib in situ bypass 04/17/19 Compl eted RLE Angiogram without intervention 04/03/19 Completed Revision RLE transmetatarsal amputation 11/11/18 Completed RLE angiogram w/ BULK STATION OPERATOR peronea l and popliteal artery 10/10/18 Completed Amputation of left 1st toe a nd metatarsal 02/11/18 Completed RLE angiogram w/ BULK STATION OPERATOR peroneal 11/22/17 Completed RLE angiogram w/ BULK STATION OPERATOR peronea l, TP trunk and pop 09/16/17 Completed Amputation of Right 3rd toe 07/12/17 Completed RLE Surgical debridement of foot wound, transmetatarsal amp 4th toe, excision 3rd metatartsal and prox phalnx 06/19/17 Completed RLE angiogram w/ BULK STATION OPERATOR/stent p opliteal artery, BULK STATION OPERATOR peroneal 06/14/17 Completed RLE 5th toe amputation 04/30/17 Co mpleted RLE angiogram with intervention 02/15/17 Completed RLE Mechanical Atherectomy a nd BULK STATION OPERATOR of popliteal, thrombolysis/TPA and recheck 02/15/17 [...] to oldest [Reference Range]: 1 Heart Rate 67 bpm (03/01/22 12:59 PM) Blood Pressure 164/58mmHg (03/01/22 12:59 PM) Cuff Pulse Pressure 106 mmHg (03/01/22 12:59 PM) BP Location # 1 Left Arm (03/01/22 12:59 PM) Social History Social History Type Response Smoking Status Never smoked cigaret robert Sex Female Patient Care team information Personnel Name: MD Matheus, Agustín Sánchez Address: Address: [address] [place] [address]
--- OUTSIDE RECORDS SUMMARY | 2023-01-31 23:09 | External Medical Summary | Summary of Care ---
Author Name Unknown Organization [facility] [place] [address] Care Team Providers Care Calender Tender Name Role Phone Agustín Jarvis MD Primary Care Provider [phone] Reason for Visit * Reason Onset Date Comments Scheduling 07/17/2022 reclast Encounter Details Date Type Department Care Team Description 07/17/2022 Telephone Hematology/Oncology Treatment, [address] [phone] Agustín Jarvis MD [address] [place], [place] [phone] Scheduling (reclast) Allergies Active Allergy Reactions Severity [...] D LEVEL ONCE IN A LIFETIME-USE SMARTSET# 61098 1986 DXA Scan 1996 Zoster Vaccines (1 [...] Advance Directives occurred with: Patient Care Teams Calender Tender Relationship Specialty Start Date End Date Agustín Jarvis MD [address] [place] [id number] PCP - General 03/20/02 documented as of this encounter
--- OUTSIDE RECORDS SUMMARY | 2023-01-31 23:09 | External Medical Summary | Summary of Care ---
Author Name Unknown Organization [facility] [place] [address] Care Team Providers Care Tomato Grader Name Role Phone Agustín Jarvis MD Primary Care Provider [phone] Reason for Visit * Reason Onset Date Comments Scheduling 07/17/2022 reclast Encounter Details Date Type Department Care Team Description 07/17/2022 Telephone Hematology/Oncology Treatment, [address] [phone] Agustín Jarvis MD [address] [place], [place] [phone] Scheduling (reclast) Allergies Active Allergy Reactions Severity Noted Date Comments Ivp Dye Hives 08/05/2006 Lisinopril Edema Other 06/01/2010 Angioedema documented as of this encounter (statuses as of 07/20/2022) Medications Medication Sig Dispensed Refills Start Date [...] as of this encounter (statuses as of 07/20/2022) Active Problems Problem Noted Date Osteoporosis 07/17/2022 [...] as of this encounter (statuses as of 07/20/2022) Social History Tobacco Use Types Packs/Day Years [...] D LEVEL ONCE IN A LIFETIME-USE SMARTSET# 14548 1986 DXA Scan 1996 Zoster Vaccines (1 [...] Advance Directives occurred with: Patient Care Teams Tomato Grader Relationship Specialty Start Date End Date Agustín Jarvis MD [address] [place] [address] [place] [address] PCP - General 03/20/02 documented as of this encounter
--- OUTSIDE RECORDS SUMMARY | 2023-01-31 23:09 | External Medical Summary | Summary of Care ---
Author Name Unknown Organization [facility] [place] [address] Care Team Providers Care Supervisor Dyer Name Role Phone Agustín Jarvis MD Primary Care Provider [phone] Reason for Visit * Reason Onset Date Comments Scheduling 07/17/2022 reclast Encounter Details Date Type Department Care Team Description 07/17/2022 Telephone Hematology/Oncology Treatment, [address] [phone] Agustín Jarvis MD [address] [place], [place] [phone] Scheduling (reclast) Allergies Active Allergy Reactions Severity [...] encounter Miscellaneous Notes * Telephone Encounter - Robyn Segal LPN [...] D LEVEL ONCE IN A LIFETIME-USE SMARTSET# [id number] 1986 DXA Scan 1996 Zoster Vaccines (1 [...] Advance Directives occurred with: Patient Care Teams Supervisor Dyer Relationship Specialty Start Date End Date Agustín Jarvis MD [address] [place] [address] PCP - General 03/20/02 documented as of this encounter
--- OUTSIDE RECORDS SUMMARY | 2023-01-31 23:09 | External Medical Summary | Continuity of Care Document ---
Author Name Unknown Organization [place] [facility] Address [address] [place], [place] [id number] Care Team Providers Care Crane Helper Name Role Phone Jarvis, Agustín Sánchez Primary Care Physician [phone] [id number] Date(s): 06/14/22 - 06/14/22 [facility] [address], [address] [place] [phone] Discharge Disposition: Home or Self Care Attending [...] q8h Start 12 hr before procedure/study, Pharmacy: [facility] Start Date: 06/14/22 Status: Ordered predniSONE 50 mg oral tablet Start: 02/08/22 12:07:00 EDT, See Instructions, Disp# 3 tab, Refills: 0, 1 tab PO q8h Start 12 hr before procedure/study, Pharmacy: [facility] Start Date: 02/08/22 Status: Ordered Probiotic Formula Start: 06/04/17 14:23:00, 1 cap, PO, Daily Start Date: 06/04/17 Status: Ordered spironolactone 25 mg oral tablet Start: 06/12/12 14:40:00, 1 tab, PO, bid, Disp# 60 tab, Refills: 3, Pharmacy: [facility] Start Date: 06/12/12 Status: Ordered [...] Diagnosis Body Site Status LLE Angiogram w/ ASSEMBLER UTILITY BUILDINGS peroneal artery 04/21/21 Completed LLE angiogram without intervention 03/25/20 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 09/02/19 Completed lle angio w area captain l peroneal a nd stent l common iliac art 07/15/19 Completed Abdominal aortogram w/ ASSEMBLER UTILITY BUILDINGS/s tent of paulo PONCHO 07/06/19 Completed RLE GRAVES REGISTRATION SPECIALIST - Endarterectomy of the common femoral artery wi/ bovine patch and fem-ant tib in situ bypass 04/17/19 Compl eted RLE Angiogram without intervention 04/03/19 Completed Revision RLE transmetatarsal amputation 11/11/18 Completed RLE angiogram w/ ASSEMBLER UTILITY BUILDINGS peronea l and popliteal artery 10/10/18 Completed Amputation of left 1st toe a nd metatarsal 02/11/18 Completed RLE angiogram w/ ASSEMBLER UTILITY BUILDINGS peroneal 11/22/17 Completed RLE angiogram w/ ASSEMBLER UTILITY BUILDINGS peronea l, TP trunk and pop 09/16/17 Completed Amputation of Right 3rd toe 07/12/17 Completed RLE Surgical debridement of foot wound, transmetatarsal amp 4th toe, excision 3rd metatartsal and prox phalnx 06/19/17 Completed RLE angiogram w/ ASSEMBLER UTILITY BUILDINGS/stent p opliteal artery, ASSEMBLER UTILITY BUILDINGS peroneal 06/14/17 Completed RLE 5th toe amputation 04/30/17 Co mpleted RLE angiogram with intervention 02/15/17 Completed RLE Mechanical Atherectomy a nd ASSEMBLER UTILITY BUILDINGS of popliteal, thrombolysis/TPA and recheck 02/15/17 Completed Nephrectomy 04/2013 Completed Vascular surgery 02/25/13 Complete d Popliteal artery 2 02/2013 Comple prisca Plantar wart 3 01/2013 Completed Planters Warts Removed From Foor 2012 Completed Cardiac catheterization 11/21/11 C ompleted Colonoscopy 2011 Completed Attempted Kidney Stent-Right 2011 Completed bilateral cataracts 2010 Compl eted Endoscopy 2009 Completed L carotidendartectomy [...] Exam Date Time Procedure Performing Provider Status 06/14/22 9:29 AM VL Lower Ext Arterial Duplex Limited S Judi smart; Final Notes: (VL Lower Ext Arterial Duplex Limited) Reason For Exam: PAD VL Lower Ext Arterial Duplex Limited [facility] FINAL REPORT Name: BARRON BOND : 1945 Visit: [id number] Date: 14 Jun 2022 TYPE OF TEST: Extremity Arterial Duplex REASON FOR TEST PAD, Left lower extremity bypass graft INTERPRETATION/FINDINGS Arterial duplex imaging performed of the LEFT lower extremity arteries and popliteal artery to peroneal artery bypass graft with vein: 1. No hemdynamically significant stenosis in the distal external iliac, common femoral, proximal profunda femoris or superficial femoral inflow arteries. 2. Patent [id number] popliteal artery to peroneal artery bypass graft with no evidence of stenosis at the proximal anastomosis, throughout the graft or at the distal anastomosis. A monophasic signal is demonstrated in the distal segment of the graft. Low mid graft velocity of 30.8 cm/s suggests a compromised graft. 3. 75-99% stenosis (PSV 365 cm/sec) of the outflow peroneal artery just distal to the BPG distal anastomosis. 4. Monophasic flow is insonated in the peroneal and distal posterior tibial arteries. Retrograde, very low velocity, monophasic flow in insonated in the distal anterior tibial artery. 5. The left peroneal/brachial index is 0.84 (mildly reduced); may be overestimated due to heavily calficied peroneal artery. Left digit pressure is 28 mmHg. 6. Unable to obtain right ankle/brachial index due to right leg amputation. Compared to the previous study performed 02/06/2022, the ARABELLA may be better; however, it's difficult to be certain of the ARABELLA accuracy given how calcified the tibial arteries are. IMPRESSION/COMMENTS I have personally reviewed the data relevant to the interpretation of this study. TECHNOLOGIST: Judi SEXTON, RD, RVT PHYSICIAN: Wesley Umana M.D. Signed: 06/14/2022 10:10 AM Final Dictated by:MD Umana Eugene J Dictated DT/TM:06/14/2022 10:20 Signed by:MD Umana Eugene J Signed (Electronic Signature):06/14/2022 10:10 Transcribed by:HUGO Social History Social History Type Response Smoking Status Never smoked cigaret robert Sex Female Note * MD Umana Eugene J: VERIFY, PERFORM, VERIFY, TRANSCRIBE Event Display: Report Authored Date: [id number] [facility] FINAL REPORT Name: BARRON BOND : 1945 Visit: [id number] Date: 14 Jun 2022 TYPE OF TEST: Extremity Arterial Duplex REASON FOR TEST PAD, Left lower extremity bypass graft INTERPRETATION/FINDINGS Arterial duplex imaging performed of the LEFT lower extremity arteries and popliteal artery to peroneal artery bypass graft with vein: 1. No hemdynamically significant stenosis in the distal external iliac, common femoral, proximal profunda femoris or superficial femoral inflow arteries. 2. Patent lzhpo-dim-ojsv popliteal artery to peroneal artery bypass graft with no evidence of stenosis at the proximal anastomosis, throughout the graft or at the distal anastomosis. A monophasic signal is demonstrated in the distal segment of the graft. Low mid graft velocity of 30.8 cm/s suggests a compromised graft. 3. 75-99% stenosis (PSV 365 cm/sec) of the outflow peroneal artery just distal to the BPG distal anastomosis. 4. Monophasic flow is insonated in the peroneal and distal posterior tibial arteries. Retrograde, very low velocity, monophasic flow in insonated in the distal anterior tibial artery. 5. The left peroneal/brachial index is 0.84 (mildly reduced); may be overestimated due to heavily calficied peroneal artery. Left digit pressure is 28 mmHg. 6. Unable to obtain right ankle/brachial index due to right leg amputation. Compared to the previous study performed 02/06/2022, the ARABELLA may be better; however, it's difficult to be certain of the ARABELLA accuracy given how calcified the tibial arteries are. IMPRESSION/COMMENTS I have personally reviewed the data relevant to the interpretation of this study. TECHNOLOGIST: Judi SEXTON, [facility], RVT PHYSICIAN: Wesley Umana M.D. Signed: 06/14/2022 10:10 AM Final Dictated by:MD Umana Eugene J Dictated DT/TM:06/14/2022 10:20 Signed by:MD Umana Eugene J Signed (Electronic Signature):06/14/2022 10:10 Transcribed by:HUGO Patient Care team information Personnel Name: MD Matheus, Agustín Sánchez Address: Address: [address] [place] [id number]
--- OUTSIDE RECORDS SUMMARY | 2023-01-31 23:09 | External Medical Summary | Summary of Care ---
Author Name Unknown Organization [facility] Address [address] [place] [address] Phone [phone] Care Team Providers Care Product Analyst Name Role Phone Agustín Jarvis MD Primary Care Provider [phone] Reason for Visit * Reason Comments Treatment Reclast * Episode Based Medications (Routine) - Closed Specialty Diagnoses / Procedures Referred By Contpatrick t Referred To Contact Diagnoses Age-related osteoporosis without current pathological fracture Procedures ME ZOLEDRONIC ACID 1MG Agustín Jarvis MD [address] [place] [address] [facility] Hem/Onc [facility] [address] [place] [address] Referral ID Status Reason Start Date Expiration Date Visits Re quested Visits Authorized [id number] Closed 07/18/2022 07/18/[phone] Encounter Details Date Type Department Care Team Description 07/31/2022 Hem/Onc Treatment Hematology/Oncology Treatment, [facility] [address] [place], [place] [id number] [facility], Chair6 Hem Onc [address] [place] [id number] Age-related osteoporosis without current pathological fracture* Allergies [...] she had a crown replaced last week. [facility] Care Plan ID is not set. 07/31/2022 [...] from the original note were not included. [id number] Zoledronic Acid Injection 5 mg/100 mL Brands: [...] about all medicines taken. Include prescription and [id number] medicines, vitamins, and herbal medicines. Speak with [...] is very important while taking this medicine. [place] your teeth and floss regularly. Keep all [...] you have any questions about this medicine. [email or web address] IMPORTANT NOTE: This document tells you briefly [...] subject to Terms of Use. Copyright(c) 2022 [facility]. [employer]. All rights reserved. This information is not intended as a substitute for professional medical care. Always follow your healthcare professional's instructions. * Pt Handout (on AVS) - DAYNE PATIENT HANDOUT - 07/31/2022 1:54 PM EST Images from the original note were not included. [id number] Zoledronic Acid Injection 5 mg/100 mL Brands: [...] about all medicines taken. Include prescription and awjv-wir-oozgani medicines, vitamins, and herbal medicines. Speak with [...] is very important while taking this medicine. [place] your teeth and floss regularly. Keep all [...] you have any questions about this medicine. [email or web address] IMPORTANT NOTE: This document tells you briefly [...] subject to Terms of Use. Copyright(c) 2022 [facility]. 5300-8222 [employer]. All rights reserved. This information is not [...] D LEVEL ONCE IN A LIFETIME-USE SMARTSET# 43498 1986 DXA Scan 1996 Zoster Vaccines (1 [...] Advance Directives occurred with: Patient Care Teams Product Analyst Relationship Specialty Start Date End Date Agustín Jarvis MD [address] [place], [place] [address]LUCILA [address] PCP - General 03/20/02 documented as of this encounter
--- OUTSIDE RECORDS SUMMARY | 2023-01-31 23:09 | External Medical Summary | Continuity of Care Document ---
Author Name Unknown Organization [place] [address] [address] Address [address] [place], [place] [id number] Care Team Providers Care Engineer Chief Name Role Phone Agustín Jarvis Primary Care Physician [phone] [facility] [id number] Date(s): 06/14/22 - 06/14/22 [place] [address] [address], [address] [place] [address] [phone] Encounter Diagnosis Peripheral artery disease(Discharge Diagnosis) - 06/14/22 Discharge Disposition: Home or Self Care Attending Physician: MD Lyndsay, [place] Referring Physician: MD Matheus, Agustín Sánchez Allergies, Adverse Reactions, Alerts Substance Reaction Severity [...] q8h Start 12 hr before procedure/study, Pharmacy: [facility] Start Date: 06/14/22 Status: Ordered predniSONE 50 mg oral tablet Start: 02/08/22 12:07:00 EDT, See Instructions, Disp# 3 tab, Refills: 0, 1 tab PO q8h Start 12 hr before procedure/study, Pharmacy: [facility] Start Date: 02/08/22 Status: Ordered Probiotic Formula Start: 06/04/17 14:23:00, 1 cap, PO, Daily Start Date: 06/04/17 Status: Ordered spironolactone 25 mg oral tablet Start: 06/12/12 14:40:00, 1 tab, PO, bid, Disp# 60 tab, Refills: 3, Pharmacy: [facility]7 Start Date: 06/12/12 Status: [...] Service Informant Peripheral artery disease Discharge Diagnosis 06/14/22 Procedures Procedure Date Related Diagnosis Body Site Status LLE Angiogram w/ BOULEVARD GLASSWARE REPLACER peroneal artery 04/21/21 Completed LLE angiogram without intervention 03/25/20 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 09/02/19 Completed lle angio w precinct captain l peroneal a nd stent l common iliac art 07/15/19 Completed Abdominal aortogram w/ BOULEVARD GLASSWARE REPLACER/s tent of paulo PONCHO 07/06/19 Completed RLE CARDIOVASCULAR TECHNOLOGIST - Endarterectomy of the common femoral artery wi/ bovine patch and fem-ant tib in situ bypass 04/17/19 Compl eted RLE Angiogram without intervention 04/03/19 Completed Revision RLE transmetatarsal amputation 11/11/18 Completed RLE angiogram w/ BOULEVARD GLASSWARE REPLACER peronea l and popliteal artery 10/10/18 Completed Amputation of left 1st toe a nd metatarsal 02/11/18 Completed RLE angiogram w/ BOULEVARD GLASSWARE REPLACER peroneal 11/22/17 Completed RLE angiogram w/ BOULEVARD GLASSWARE REPLACER peronea l, TP trunk and pop 09/16/17 Completed Amputation of Right 3rd toe 07/12/17 Completed RLE Surgical debridement of foot wound, transmetatarsal amp 4th toe, excision 3rd metatartsal and prox phalnx 06/19/17 Completed RLE angiogram w/ BOULEVARD GLASSWARE REPLACER/stent p opliteal artery, BOULEVARD GLASSWARE REPLACER peroneal 06/14/17 Completed RLE 5th toe amputation 04/30/17 Co mpleted RLE angiogram with intervention 9/15/17 Completed RLE Mechanical Atherectomy a nd BOULEVARD GLASSWARE REPLACER of popliteal, thrombolysis/TPA and recheck 02/15/17 Completed Nephrectomy 1 04/2013 Completed Vascular surgery 02/25/13 Complete d Popliteal artery 2 02/2013 Comple prisca Plantar wart 3 01/2013 Completed Planters Warts Removed From [facility] 2012 Completed Cardiac catheterization 11/21/11 [...] Name: MD Matheus, Agustín Sánchez Address: Address: [address] [place] [address] [place]
--- OUTSIDE RECORDS SUMMARY | 2023-01-31 23:09 | External Medical Summary | Summary of Care ---
Author Name Unknown Organization [facility] [place] [address] Care Team Providers Care Vending Machine Repairer Name Role Phone Agustín Jarvis MD Primary Care Provider [phone] Reason for Visit * Reason Onset Date Comments Scheduling 07/17/2022 reclast Encounter Details Date Type Department Care Team Description 07/17/2022 Telephone Hematology/Oncology Treatment, [address] [id number] Agustín Jarvis MD [address] [place], [place] [phone] Scheduling (reclast) Allergies Active Allergy Reactions Severity Noted Date Comments Ivp Dye Hives 08/05/2006 Lisinopril Edema Other 06/01/2010 Angioedema documented as of this encounter (statuses as of 07/23/2022) Medications Medication Sig Dispensed Refills Start Date [...] as of this encounter (statuses as of 07/23/2022) Active Problems Problem Noted Date Osteoporosis 07/17/2022 [...] as of this encounter (statuses as of 07/23/2022) Social History Tobacco Use Types Packs/Day Years [...] D LEVEL ONCE IN A LIFETIME-USE SMARTSET# [id number] 1986 DXA Scan 1996 Zoster Vaccines (1 [...] Advance Directives occurred with: Patient Care Teams Vending Machine Repairer Relationship Specialty Start Date End Date Agustín Jarvis MD [address] [facility] [place] [address] PCP - General 03/20/02 documented as of this encounter
--- OUTSIDE RECORDS SUMMARY | 2023-01-31 23:10 | External Medical Summary ---
Author Name Unknown Address Unknown Organization K01:LABORATORY [facility] - [address] [place] [address] [place] [address] Laboratory Report Ordering Provider Test Date Status KAELYN BRYAN 06/28/2021 03:19:35 Final Observation Date Value Abnormality Reference (Units) Status Bacteria identified in Unspecified specimen by Culture 06/28/2021 03:19:35 No significant growth Final Performing Location LAB[facility]ATORY [facility] - [address] [address]
--- OUTSIDE RECORDS SUMMARY | 2023-01-31 23:10 | External Medical Summary | Continuity of Care Document ---
Author Name Unknown Organization [place] [address] [address] Sán[address] Address [address] [place], [place] [id number] Care Team Providers Care Director Product Development Name Role Phone Agustín Jarvis Primary Care Physician [phone] Encounter [facility] [id number] Date(s): 10/03/21 - 10/03/21 [place] [address] [place] [address] [phone] Encounter Diagnosis Atherosclerosis(Discharge Diagnosis) - 10/03/21 Discharge Disposition: Home or Self Care Attending [...] Ordered predniSONE 50 mg oral tablet Start: 04/13/21 10:01:00 EST, See Instructions, Disp# 3 tab, Refills: 0, 1 tab PO q8h Start 12 hr before procedure/study, Pharmacy: [facility] Start Date: 04/13/21 Status: Ordered Probiotic Formula Start: 06/04/17 14:23:00, 1 cap, PO, Daily Start Date: 06/04/17 Status: Ordered spironolactone 25 mg oral tablet Start: 06/12/12 14:40:00, 1 tab, PO, bid, Disp# 60 tab, Refills: 3, Pharmacy: [facility]7 Start Date: 06/12/12 Status: Ordered Vitamin D3 1000 intl units oral tablet Start: 01/29/14 14:20:00, 1 tab, PO, Daily Start Date: 01/29/14 Status: Ordered Mental Status 10/03/21 Barriers to Learning one year None evide nt, Vision impairment, Other: Mandatory Health Literacy Documentation Yes Health Literacy Communication Barriers N ever Primary Language Sri Lankan Problem List Condition Effective Dates Status Health [...] Cl inical Service Informant Atherosclerosis Discharge Diagnosis 10/03/21 Procedures Procedure Date Related Diagnosis Body Site Status LLE Angiogram w/ BASEBALL GLOVE SHAPER peroneal artery 04/21/21 Completed LLE angiogram without intervention 03/25/20 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 09/02/19 Completed lle angio w towboat captain l peroneal a nd stent l common iliac art 07/15/19 Completed Abdominal aortogram w/ BASEBALL GLOVE SHAPER/s tent of paulo PONCHO 07/06/19 Completed RLE HABILITATION ASSISTANT - Endarterectomy of the common femoral artery wi/ bovine patch and fem-ant tib in situ bypass 04/17/19 Compl eted RLE Angiogram without intervention 04/03/19 Completed Revision RLE transmetatarsal amputation 11/11/18 Completed RLE angiogram w/ BASEBALL GLOVE SHAPER peronea l and popliteal artery 10/10/18 Completed Amputation of left 1st toe a nd metatarsal 02/11/18 Completed RLE angiogram w/ BASEBALL GLOVE SHAPER peroneal 11/22/17 Completed RLE angiogram w/ BASEBALL GLOVE SHAPER peronea l, TP trunk and pop 09/16/17 Completed Amputation of Right 3rd toe 07/12/17 Completed RLE Surgical debridement of foot wound, transmetatarsal amp 4th toe, excision 3rd metatartsal and prox phalnx 06/19/17 Completed RLE angiogram w/ BASEBALL GLOVE SHAPER/stent p opliteal artery, BASEBALL GLOVE SHAPER peroneal 06/14/17 Completed RLE 5th toe amputation 04/30/17 Co mpleted RLE angiogram with intervention 02/15/17 Completed RLE Mechanical Atherectomy a nd BASEBALL GLOVE SHAPER of popliteal, thrombolysis/TPA and recheck 02/15/17 Completed [...] to oldest [Reference Range]: 1 Heart Rate 65 bpm (10/03/21 1:05 PM) Blood Pressure 146/72mmHg (10/03/21 1:05 PM) Cuff Pulse Pressure 74 mmHg (10/03/21 1:05 PM) BP Location # 1 Left Arm (10/03/21 1:05 PM) Social History Social History Type Response Smoking Status Never smoked cigaret robert Sex Female Care Team Personnel Name: MD Matheus, Agustín Sánchez Address: [address] [place] [id number] [place]
--- OUTSIDE RECORDS SUMMARY | 2023-01-31 23:10 | External Medical Summary ---
Author Name Unknown Address Unknown Organization K1F:[facility]ATORY [facility] - [address] [place] [address] Laboratory Report Ordering Provider Test Date Status MINMAW 06/29/2021 05:04:00 Final Observation Date Value Abnormality Reference (Units ) Status Phosphate 06/29/2021 05:04:00 2.9 2.5-4.8 (m g/dL) Final Performing Location [facility]ORY [facility] - [address] [place] [address]
--- OUTSIDE RECORDS SUMMARY | 2023-01-31 23:10 | External Medical Summary ---
Author Name Unknown Address Unknown Organization K1F:[facility] - [address] [place] [address] Laboratory Report Ordering Provider Test Date Status JOSE ANTONIO NINAW 06/29/2021 05:04:00 Final Observation Date Value Abnormality Reference (Units ) Status Magnesium 06/29/2021 05:04:00 1.8 1.5-2.6 (m g/dL) Final Performing Location [facility] - [address] [place] [address]
--- OUTSIDE RECORDS SUMMARY | 2023-01-31 23:10 | External Medical Summary ---
Author Name Unknown Address Unknown Organization K01:[facility] [place] - [address] [facility] [address] Laboratory Report Ordering Provider Test Date Status JOSE ANTONIO NINAW 06/28/2021 04:35:00 Final Observation Date Value Abnormality Reference (Units ) Status HbA1C 06/28/2021 04:35:00 7.0 Above high normal 4. 0-5.6 (%) Final Performing Location [facility]ORY [facility] - [address] [facility] [address]
--- OUTSIDE RECORDS SUMMARY | 2023-01-31 23:10 | External Medical Summary ---
Author Name Unknown Address Unknown Organization K1F:LABORATORY [facility] - [address] [place] [address] Laboratory Report Ordering Provider Test Date Status MINMAW 06/29/2021 05:04:00 Final Observation Date Value Abnormality Reference (Units ) Status WBC, Total 06/29/2021 05:04:00 6.76 4.00-10.80 (K/uL) Final RBC 06/29/2021 05:04:00 3.62 Below low normal 3.85-5.15 (M/uL) Final Hemoglobin 06/29/2021 05:04:00 11.1 Below low normal 12.0-15.3 (g/dL) Final HCT 06/29/2021 05:04:00 33.8 Below low normal 36.0-45.2 (%) Final MCV 06/29/2021 05:04:00 93.4 81.5-97.5 (fL) Final MCH 06/29/2021 05:04:00 30.7 27.0-34.0 (pg) Final MCHC 06/29/2021 05:04:00 32.8 32.0-36.0 (g/dL) Final RDW 06/29/2021 05:04:00 13.2 11.5-15.5 (%) Final MPV 06/29/2021 05:04:00 11.0 6.6-11.1 (fL) Final Nucleated erythrocytes/100 leukocytes [Ratio] in Blood by Automated count 06/29/2021 05:04:00 0 <=0 (/100 WBCs) Final Platelets 06/29/2021 05:04:00 149 140-400 (K/uL) Final Performing Location LABORATORY [facility] - [address] [place] [address]
--- OUTSIDE RECORDS SUMMARY | 2023-01-31 23:10 | External Medical Summary ---
Author Name Unknown Address Unknown Organization K1F:LABORATORY [facility] - [address] [place] [address] Laboratory Report Ordering Provider Test Date Status BETSY PRICE 06/28/2021 04:35:00 Final Observation Date Value Abnormality Reference (Units ) Status BUN 06/28/2021 04:35:00 24 Above high normal 6-20 (mg/dL) Final Creatinine 06/28/2021 04:35:00 1.1 Above high normal 0.5-1.0 (mg/dL) Final Glomerular filtration rate/1.73 sq M.predicted [Volume Rate/Area] in Serum, Plasma or Blood by Creatinine-based formula (CKD-EPI) 06/28/2021 04:35:00 52 Below low normal >=60 (mL/min) Final Performing Location LABORATORY [facility] - [address] [place] [address]
--- OUTSIDE RECORDS SUMMARY | 2023-01-31 23:10 | External Medical Summary ---
Author Name Unknown Address Unknown Organization K1F:LABORATORY [facility] - [address] [place] [address] Laboratory Report Ordering Provider Test Date Status CATHERINE MORALES 06/28/2021 01:26:00 Final Observation Date Value Abnormality Reference (Units ) Status CRP, low-sensitivity 06/28/2021 01:26:00 <3 <=5 (mg/L) Final Performing Location LABORATORY [facility] - [address] [place] [address]
--- OUTSIDE RECORDS SUMMARY | 2023-01-31 23:10 | External Medical Summary ---
Author Name Unknown Address Unknown Organization : Laboratory Report Ordering Provider Test Date Status JAMIA NINA 06/29/2021 07:19:40 Final Observation Date Value Abnormality Reference (Units ) Status Glucose Point of Care 06/29/2021 07:19:40 74 70-120 (mg/dL) Final Performing Location
--- OUTSIDE RECORDS SUMMARY | 2023-01-31 23:10 | External Medical Summary | Continuity of Care Document ---
Author Name Unknown Organization [address] Address [address] [place], [place] [id number] Care Team Providers Care Roller Repairer Name Role Phone Agustín Jarvis Primary Care Physician [phone] Encounter [facility] [id number] Date(s): 09/13/21 - 09/13/21 [facility] [address], [address] [place] [address] [phone] Encounter Diagnosis Atherosclerosis(Discharge Diagnosis) - 09/13/21 Discharge Disposition: Home or Self Care Attending Physician: MD Umana Eugene J Referring Physician: MD Umana Eugene J Allergies, Adverse Reactions, Alerts Substance Reaction Severity Status ensourane tripp juandice Active IVP dye hives Active CHECO Inhibitors Swelling Hives Active Assessment and Plan Extracted from: Title:Clinical Document Author:EDILIA Pastor Lynn Date:09/13/21 [facility] OUTPATIENT NOTE Name: BARRON ALMARAZ Patient Number: [id number] : 1945 Date of Service: 09/13/2021 Chief Complaint: _Requested appointment for PAD HPI: _Mrs. Almaraz is an elderly female who presents to Dr. Umana's vascular surgery clinic today for an appointment regarding her history of severe peripheral arterial disease, and the reopening of a left heel ulceration about 2 weeks ago. Patient is a longstanding patient of Dr. Umana's, having undergone multiple revascularization procedures in the past, and ultimately suffering a right leg below-knee amputation. She also has a history of a left-sided femoral-distal artery bypass which was performed in 2012. She is known to have single-vessel outflow from this through her peroneal artery to the foot. Patient's last procedure done by Dr. Umana was a left leg angiography with angioplasty of her peroneal artery distal to her anastomosis in April 2021. Her heel ulceration healed rapidly after this, and she was released from wound clinic in July 2021. Patient was to return to the office this summer for routine follow-up, however, she noted her left heel became ulcerated again about 1 to 2 weeks ago. Patient will be going back to the wound clinic, but she was evaluated in her primary care practitioner's office, and sent for an arterial ultrasound. Patient admits some pain in the left heel, but denies any pain in the toes. She denies any toe discoloration or particular rest pain when the leg is elevated. She does not walk fast or far enough to claudicate, due to her right leg below-knee amputation. Patient states that she had been off of her left foot completely during the healing process and spent quite a bit of time in a wheelchair. Since her release from the wound clinic she has been ambulating again more regularly. Her arterial ultrasound of the left lower extremity demonstrates a widely patent bypass graft, although the distal anastomosis is not well visualized, she does have flow in her peroneal artery distal to this area. Current Home Meds: (Last Updated 09/13 08:50) NIFEdipine (Procardia XL 30 mg oral tablet, extended release) 30 mg PO Daily acetaminophen 500 mg prn [...] 25 mg PO bid Allergies and Sensitivities: enstonya almaguer(juandice) CHECO Inhibitors(Hives) CHECO Inhibitors(Swelling) IVP dye(hives) Past [...] II diabetes mellitus OBJECTIVE Vitals: Last Updated 09/13/21 08:53 Date Temp BP Location Pulse RR SpO2 Pain 09/13/21 142/56 Left Arm 62 97 09/13/21 4 05/08/21 174/66 Right Arm 65 96 0 Vital Signs are the last 3 documented. [...] healthy-appearing well-nourished well-developed elderly female no distress. Her right leg below-knee amputation has a prosthetic in place. Her femoral pulse in the left is +3. Her lower externally distal pulses are nonpalpable. She does have a good Doppler signal in her DP, peroneal, and posterior arteries. Her toes demonstrate brisk capillary refill and no sign of ischemia. She does have a heel ulceration which is pink and appears to have significant dry skin and callus surrounding it. ASSESSMENT: _ PLAN: _ 1 ) _peripheral arterial disease with ulceration left heel Patient was discussed at length with Dr. Umana. Due to the fact that the patient has only been caring for this ulceration for 1 to 2 weeks, and the arterial ultrasound does not demonstrate any definite occlusions, we recommend the patient continue with local wound care to this area and will reevaluate her in the office in 2 weeks. If there is not appear to be signs of healing by that point, we will then suggest patient undergo angiography with possible intervention. This was discussed with the patient. Patient is in agreement to this plan. She will call her with any other questions and continue caring for her wound conservatively in the meantime. Thank you for letting us participate in [...] Refills: 3 Start Date: 09/14/15 Status: Ordered omeprazole 20 mg oral delayed [...] q8h Start 12 hr before procedure/study, Pharmacy: [facility] Start Date: 04/13/21 Status: Ordered Probiotic Formula Start: 06/04/17 14:23:00, 1 cap, PO, Daily Start Date: 06/04/17 Status: Ordered Procardia XL 30 mg oral tablet, extended release Start: 11/04/12 17:26:21, 1 tab, PO, Daily, Disp# 90 tab, Refills: 2, Pharmacy: [facility] Start Date: 11/04/12 Status: Ordered spironolactone 25 mg oral tablet Start: 06/12/12 14:40:00, 1 tab, PO, bid, Disp# 60 tab, Refills: 3, Pharmacy: [facility] Start Date: 06/12/12 Status: Ordered Vitamin D3 1000 intl units oral tablet Start: 01/29/14 14:20:00, 1 tab, PO, Daily Start Date: 01/29/14 Status: Ordered Mental Status 09/13/21 Barriers to Learning one year None evide nt, Vision impairment, Other: Mandatory Health Literacy Documentation Yes Health Literacy Communication Barriers N ever Primary Language Fijian Problem List Condition Effective Dates Status Health [...] Cl inical Service Informant Atherosclerosis Discharge Diagnosis 09/13/21 Procedures Procedure Date Related Diagnosis Body Site Status LLE Angiogram w/ AIR QUALITY CHEMIST peroneal artery 04/21/21 Completed LLE angiogram without intervention 03/25/20 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 09/02/19 Completed lle angio w clam dredge boat captain l peroneal a nd stent l common iliac art 07/15/19 Completed Abdominal aortogram w/ AIR QUALITY CHEMIST/s tent of paulo PONCHO 07/06/19 Completed RLE HEAD OF OPERATION AND LOGISTICS - Endarterectomy of the common femoral artery wi/ bovine patch and fem-ant tib in situ bypass 04/17/19 Compl eted RLE Angiogram without intervention 04/03/19 Completed Revision RLE transmetatarsal amputation 11/11/18 Completed RLE angiogram w/ AIR QUALITY CHEMIST peronea l and popliteal artery 10/10/18 Completed Amputation of left 1st toe a nd metatarsal 02/11/18 Completed RLE angiogram w/ AIR QUALITY CHEMIST peroneal 11/22/17 Completed RLE angiogram w/ AIR QUALITY CHEMIST peronea l, TP trunk and pop 09/16/17 Completed Amputation of Right 3rd toe 07/12/17 Completed RLE Surgical debridement of foot wound, transmetatarsal amp 4th toe, excision 3rd metatartsal and prox phalnx 06/19/17 Completed RLE angiogram w/ AIR QUALITY CHEMIST/stent p opliteal artery, AIR QUALITY CHEMIST peroneal 06/14/17 Completed RLE 5th toe amputation 04/30/17 Co mpleted RLE angiogram with intervention 02/15/17 Completed RLE Mechanical Atherectomy a nd AIR QUALITY CHEMIST of popliteal, thrombolysis/TPA and recheck 02/15/17 Completed [...] to oldest [Reference Range]: 1 Heart Rate 62 bpm (09/13/21 8:53 AM) Blood Pressure 142/56mmHg (09/13/21 8:53 AM) Cuff Pulse Pressure 86 mmHg (09/13/21 8:53 AM) BP Location # 1 Left Arm (09/13/21 8:53 AM) Social History Social History Type Response Smoking Status Never smoked cigaret robert Sex Female
--- OUTSIDE RECORDS SUMMARY | 2023-01-31 23:10 | External Medical Summary ---
Author Name Unknown Address Unknown Organization : Laboratory Report Ordering Provider Test Date Status JAMIA NINA 06/28/2021 21:38:25 Final Observation Date Value Abnormality Reference (Units ) Status Glucose Point of Care 06/28/2021 21:38:25 153 Above high normal 70-120 (mg/dL) Final Performing Location
--- OUTSIDE RECORDS SUMMARY | 2023-01-31 23:10 | External Medical Summary ---
Author Name Unknown Address Unknown Organization : Laboratory Report Ordering Provider Test Date Status JAMIA NINA 06/28/2021 10:39:45 Final Observation Date Value Abnormality Reference (Units ) Status Glucose Point of Care 06/28/2021 10:39:45 230 Above high normal 70-120 (mg/dL) Final Performing Location
--- OUTSIDE RECORDS SUMMARY | 2023-01-31 23:10 | External Medical Summary ---
Author Name Unknown Address Unknown Organization : Laboratory Report Ordering Provider Test Date Status JAMIA NINA 06/29/2021 08:02:07 Final Observation Date Value Abnormality Reference (Units ) Status Glucose Point of Care 06/29/2021 08:02:07 77 70-120 (mg/dL) Final Performing Location
--- OUTSIDE RECORDS SUMMARY | 2023-01-31 23:10 | External Medical Summary ---
Author Name Unknown Address Unknown Organization : Laboratory Report Ordering Provider Test Date Status JAMIA NINA 06/29/2021 11:38:19 Final Observation Date Value Abnormality Reference (Units ) Status Glucose Point of Care 06/29/2021 11:38:19 125 Above high normal 70-120 (mg/dL) Final Performing Location
--- OUTSIDE RECORDS SUMMARY | 2023-01-31 23:10 | External Medical Summary ---
Author Name Unknown Address Unknown Organization : Laboratory Report Ordering Provider Test Date Status CATHERINE MORALES 06/28/2021 02:09:37 Final Observation Date Value Abnormality Reference (Units ) Status Glucose Point of Care 06/28/2021 02:09:37 203 Above high normal 70-120 (mg/dL) Final Performing Location
--- OUTSIDE RECORDS SUMMARY | 2023-01-31 23:10 | External Medical Summary ---
Author Name Unknown Address Unknown Organization K1F:LABORATORY [facility] - [address] [place] [address] Laboratory Report Ordering Provider Test Date Status DEEBASIL ROMOTEO 06/28/2021 02:33:00 Final Observation Date Value Abnormality Reference (Units ) Status Magnesium 06/28/2021 02:33:00 1.4 Below low normal 1.5 -2.6 (mg/dL) Final Performing Location LABORATORY [facility] - [address] [place] [address]
--- OUTSIDE RECORDS SUMMARY | 2023-01-31 23:10 | External Medical Summary ---
Author Name Unknown Address Unknown Organization : Laboratory Report Ordering Provider Test Date Status JAMIA NINA 06/29/2021 09:47:09 Final Observation Date Value Abnormality Reference (Units ) Status Glucose Point of Care 06/29/2021 09:47:09 130 Above high normal 70-120 (mg/dL) Final Performing Location
--- OUTSIDE RECORDS SUMMARY | 2023-01-31 23:10 | External Medical Summary ---
Author Name Unknown Address Unknown Organization K1F:LABORATORY [facility] - [address] [place] [address] Laboratory Report Ordering Provider Test Date Status BETSY PRICE 06/28/2021 07:59:10 Final Observation Date Value Abnormality Reference (Units) Status Source 06/28/2021 07:59:10 Semi-liquid Final Clostridioides difficile toxin and [id number] strain DNA panel - Stool by YAZ with probe detection 06/28/2021 07:59:10 Negative. No C. difficile toxin B gene DNA detected by PCR (Amplified Probe). Negative Final Performing Location LABORATORY [facility] - [address] [place] [address]
--- OUTSIDE RECORDS SUMMARY | 2023-01-31 23:10 | External Medical Summary ---
Author Name Unknown Address Unknown Organization K1F:LABORATORY [facility] - [address] [place] [address] Laboratory Report Ordering Provider Test Date Status BETSY PRICE 06/28/2021 04:35:00 Final Observation Date Value Abnormality Reference (Units ) Status WBC, Total 06/28/2021 04:35:00 6.65 4.00-10.80 (K/uL) Final RBC 06/28/2021 04:35:00 3.30 Below low normal 3.85-5.15 (M/uL) Final Hemoglobin 06/28/2021 04:35:00 10.0 Below low normal 12.0-15.3 (g/dL) Final HCT 06/28/2021 04:35:00 31.3 Below low normal 36.0-45.2 (%) Final MCV 06/28/2021 04:35:00 94.8 81.5-97.5 (fL) Final MCH 06/28/2021 04:35:00 30.3 27.0-34.0 (pg) Final MCHC 06/28/2021 04:35:00 31.9 Below low normal 32.0-36.0 (g/dL) Final RDW 06/28/2021 04:35:00 13.1 11.5-15.5 (%) Final MPV 06/28/2021 04:35:00 10.6 6.6-11.1 (fL) Final Nucleated erythrocytes/100 leukocytes [Ratio] in Blood by Automated count 06/28/2021 04:35:00 0 <=0 (/100 WBCs) Final Platelets 06/28/2021 04:35:00 151 140-400 (K/uL) Final Performing Location LABORATORY [facility] - [address] [place] [address]
--- OUTSIDE RECORDS SUMMARY | 2023-01-31 23:10 | External Medical Summary ---
Author Name Unknown Address Unknown Organization K1F:LABORATORY [facility] - [facility] [address] [place] [address] Laboratory Report Ordering Provider Test Date Status CATHERINE MORALES 06/28/2021 01:37:00 Final Observation Date Value Abnormality Reference (Units ) Status Bacteria identified in Unspecified specimen by Culture 06/28/2021 01:37:00 No growth Final Performing Location LABORATORY [facility] - [address] [place] [address]
--- OUTSIDE RECORDS SUMMARY | 2023-01-31 23:10 | External Medical Summary ---
Author Name Unknown Address Unknown Organization K1F:LABORATORY [facility] - [address] [place] [address] Laboratory Report Ordering Provider Test Date Status DEEBASIL ROMOTEO 06/28/2021 02:33:00 Final Observation Date Value Abnormality Reference (Units ) Status Phosphate 06/28/2021 02:33:00 3.4 2.5-4.8 (m g/dL) Final Performing Location LABORATORY [facility] - [address] [place] [address]
--- OUTSIDE RECORDS SUMMARY | 2023-01-31 23:10 | External Medical Summary ---
Author Name Unknown Address Unknown Organization [facility] - [address] [place] [address] Laboratory Report Ordering Provider Test Date Status KAELYN BRYAN 06/28/2021 03:19:24 Final Observation Date Value Abnormality Reference (Units ) Status Color of Urine by Auto 06/28/2021 03:19:24 Yellow Light Yellow, Yellow, Dark Yellow Final Clarity, Urine 06/28/2021 03:19:24 Clear Clear Final Glucose [Mass/volume] in Urine by Automated test strip 06/28/2021 03:19:24 Negative Negative (mg/dL) Final Bilirubin.total [Presence] in Urine by Automated test strip 06/28/2021 03:19:24 Negative Negative Final Ketones [Mass/volume] in Urine by Automated test strip 06/28/2021 03:19:24 Trace Abnormal Negative (mg/dL) Final Specific gravity, Urine 06/28/2021 03:19:24 1.020 1.003-1.030 Final Hemoglobin [Presence] in Urine by Automated test strip 06/28/2021 03:19:24 Negative Negative Final pH, Urine 06/28/2021 03:19:24 5.5 5.0-7.5 (Units) Final Protein [Mass/volume] in Urine by Automated test strip 06/28/2021 03:19:24 Trace Abnormal Negative (mg/dL) Final Urobilinogen [Mass/volume] in Urine by Automated test strip 06/28/2021 03:19:24 0.2 0.2, 1.0 (mg/dL) Final Nitrite [Presence] in Urine by Automated test strip 06/28/2021 03:19:24 Negative Negative Final Leukocyte esterase [Presence] in Urine by Automated test strip 06/28/2021 03:19:24 Trace Abnormal Negative Final Performing Location [facility] - [address] [place] [address]
--- OUTSIDE RECORDS SUMMARY | 2023-01-31 23:10 | External Medical Summary ---
Author Name Unknown Address Unknown Organization K1F:LABORATORY [facility] - [address] [place] [address] Laboratory Report Ordering Provider Test Date Status CATHERINE MORALES 06/28/2021 02:33:00 Final Observation Date Value Abnormality Reference (Units ) Status Troponin T 06/28/2021 02:33:00 18 Above high normal < =14 (ng/L) Final Performing Location LABORATORY [facility] - [address] [place] [address]
--- OUTSIDE RECORDS SUMMARY | 2023-01-31 23:10 | External Medical Summary ---
Author Name Unknown Address Unknown Organization K1F:LABORATORY [facility] - [address] [place] [address] Laboratory Report Ordering Provider Test Date Status JAMIA NINA 06/29/2021 05:04:00 Final Observation Date Value Abnormality Reference (Units ) Status BUN 06/29/2021 05:04:00 17 6-20 (mg/dL) Final Creatinine 06/29/2021 05:04:00 1.0 0.5-1.0 (mg/dL) Final Glomerular filtration rate/1.73 sq M.predicted [Volume Rate/Area] in Serum, Plasma or Blood by Creatinine-based formula (CKD-EPI) 06/29/2021 05:04:00 58 Below low normal >=60 (mL/min) Final Performing Location LABORATORY [facility] - [address] [place] [address]
--- OUTSIDE RECORDS SUMMARY | 2023-01-31 23:10 | External Medical Summary ---
Author Name Unknown Address Unknown Organization : Laboratory Report Ordering Provider Test Date Status JAMIA NINA 06/29/2021 06:40:43 Final Observation Date Value Abnormality Reference (Units) Status Glucose Point of Care 06/29/2021 06:40:43 43 Below lower panic limits 70-120 (mg/dL) Final POCT DEVICE COMMENT 06/29/2021 06:40:43 Notified Provider Final Performing Location
--- OUTSIDE RECORDS SUMMARY | 2023-01-31 23:10 | External Medical Summary ---
Author Name Unknown Address Unknown Organization K1F:LABORATORY [facility] - [facility] [address] [place] [address] Laboratory Report Ordering Provider Test Date Status KAELYN BRYAN 06/28/2021 03:19:24 Final Observation Date Value Abnormality Reference (Units ) Status RBC, Urine 06/28/2021 03:19:24 0-2 0-2 (/HPF) Final WBC, Urine 06/28/2021 03:19:24 3-5 Abnormal 0-2 (/HPF) Final Bacteria [#/area] in Urine sediment by Microscopy high power field 06/28/2021 03:19:24 0-25 0-25 (/HPF) Final Hyaline casts, Urine 06/28/2021 03:19:24 1-4 Abnormal None (/LPF) Final Performing Location LABORATORY [facility] - [address] [place] [address]
--- OUTSIDE RECORDS SUMMARY | 2023-01-31 23:10 | External Medical Summary ---
Author Name Unknown Address Unknown Organization : Laboratory Report Ordering Provider Test Date Status JAMIA NINA 06/28/2021 13:16:48 Final Observation Date Value Abnormality Reference (Units ) Status Glucose Point of Care 06/28/2021 13:16:48 160 Above high normal 70-120 (mg/dL) Final Performing Location
--- OUTSIDE RECORDS SUMMARY | 2023-01-31 23:11 | External Medical Summary ---
Author Name Unknown Address Unknown Organization K1F:LABORATORY [facility] - [address] [place] [address] Laboratory Report Ordering Provider Test Date Status CATHERINE MORALES 06/28/2021 01:26:00 Final Observation Date Value Abnormality Reference (Units ) Status Procalcitonin [Mass/volume] in Serum or Plasma by Immunoassay 06/28/2021 01:26:00 0.07 <0.10 (ng/mL) Final Performing Location LABORATORY [facility] - [address] [place] [address]
--- OUTSIDE RECORDS SUMMARY | 2023-01-31 23:11 | External Medical Summary ---
Author Name Unknown Address Unknown Organization K1F:LABORATORY [facility] - [address] [place] [address] [place] [address] Laboratory Report Ordering Provider Test Date Status KAELYN BRYAN 06/28/2021 01:05:16 Final Observation Date Value Abnormality Reference (Units ) Status Adenovirus DNA [Presence] in Nasopharynx by YAZ with non-probe detection 06/28/2021 01:05:16 Negative Negative Final Human coronavirus 229E RNA [Presence] in Nasopharynx by YAZ with non-probe detection 06/28/2021 01:05:16 Negative Negative Final Human coronavirus HKU1 RNA [Presence] in Nasopharynx by YAZ with non-probe detection 06/28/2021 01:05:16 Negative Negative Final Human coronavirus NL63 RNA [Presence] in Nasopharynx by YAZ with non-probe detection 06/28/2021 01:05:16 Negative Negative Final Human coronavirus OC43 RNA [Presence] in Nasopharynx by YAZ with non-probe detection 06/28/2021 01:05:16 Negative Negative Final SARS-CoV-2 (COVID-19) RNA [Presence] in Nasopharynx by YAZ with non-probe detection 06/28/2021 01:05:16 Negative Negative Final Human metapneumovirus RNA [Presence] in Nasopharynx by YAZ with non-probe detection 06/28/2021 01:05:16 Negative Negative Final Rhinovirus+Enterovirus RNA [Presence] in Nasopharynx by YAZ with non-probe detection 06/28/2021 01:05:16 Negative Negative Final Influenza virus A RNA [Presence] in Nasopharynx by YAZ with non-probe detection 06/28/2021 01:05:16 Negative Negative Final Influenza virus B RNA [Presence] in Nasopharynx by YAZ with non-probe detection 06/28/2021 01:05:16 Negative Negative Final Parainfluenza virus 1 RNA [Presence] in Nasopharynx by YAZ with non-probe detection 06/28/2021 01:05:16 Negative Negative Final Parainfluenza virus 2 RNA [Presence] in Nasopharynx by YAZ with non-probe detection 06/28/2021 01:05:16 Negative Negative Final Parainfluenza virus 3 RNA [Presence] in Nasopharynx by YAZ with non-probe detection 06/28/2021 01:05:16 Negative Negative Final Parainfluenza virus 4 RNA [Presence] in Nasopharynx by YAZ with non-probe detection 06/28/2021 01:05:16 Negative Negative Final Respiratory syncytial virus RNA [Presence] in Nasopharynx by YAZ with non-probe detection 06/28/2021 01:05:16 Negative Negative Final Bordetella pertussis.pertussis toxin promoter region [Presence] in Nasopharynx by YAZ with non-probe detection 06/28/2021 01:05:16 Negative Negative Final Chlamydophila pneumoniae DNA [Presence] in Nasopharynx by YAZ with non-probe detection 06/28/2021 01:05:16 Negative Negative Final Mycoplasma pneumoniae DNA [Presence] in Nasopharynx by YAZ with non-probe detection 06/28/2021 01:05:16 Negative Negative Final Bordetella parapertussis [id number] DNA [Presence] in Nasopharynx by YAZ with non-probe detection 06/28/2021 01:05:16 Negative Negative Final Performing Location [facility]ATORY [facility] [address] [facility] [place] [address]
--- OUTSIDE RECORDS SUMMARY | 2023-01-31 23:11 | External Medical Summary | Continuity of Care Document ---
Author Name Unknown Organization [place] [address] [facility] Address [address], [place] [id number] Care Team Providers Care Baker Paint Name Role Phone Jarvis, Agustín Sánchez Primary Care Physician [phone] [id number] [id number] Date(s): 04/13/21 - 04/13/21 [facility] [address], [address] [place] [phone] Discharge Disposition: Home or Self Care Attending [...] Levemir Start: 01/29/14 14:19:00 EDT, See Instructions, 30 units subQ qPM Start Date: 01/29/14 Status: [...] q8h Start 12 hr before procedure/study, Pharmacy: [id number] Start Date: 04/13/21 Status: Ordered Probiotic Formula Start: 06/04/17 14:23:00, 1 cap, PO, Daily Start Date: 06/04/17 Status: Ordered Procardia XL 30 mg oral tablet, extended release Start: 11/04/12 17:26:21, 1 tab, PO, Daily, Disp# 90 tab, Refills: 2, [facility]acy: [facility] Start Date: 11/04/12 Status: Ordered spironolactone 25 mg oral tablet Start: 06/12/12 14:40:00, 1 tab, PO, bid, Disp# 60 tab, Refills: 3, Pharmacy: [id number] Start Date: 06/12/12 [...] Date Related Diagnosis Body Site Status LLE angiogram without intervention 03/25/20 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 09/02/19 Completed lle angio w oiler bander l peroneal a nd stent l common iliac art 07/15/19 Completed Abdominal aortogram w/ FOOD AND BEVERAGE ANALYST/s tent of paulo PONCHO 07/06/19 Completed RLE AND DRYING SUPERVISOR COOKING CASING - Endarterectomy of the common femoral artery wi/ bovine patch and fem-ant tib in situ bypass 04/17/19 Compl eted RLE Angiogram without intervention 04/03/19 Completed Revision RLE transmetatarsal amputation 11/11/18 Completed RLE angiogram w/ FOOD AND BEVERAGE ANALYST peronea l and popliteal artery 10/10/18 Completed Amputation of left 1st toe a nd metatarsal 02/11/18 Completed RLE angiogram w/ FOOD AND BEVERAGE ANALYST peroneal 11/22/17 Completed RLE angiogram w/ FOOD AND BEVERAGE ANALYST peronea l, TP trunk and pop 09/16/17 Completed Amputation of Right 3rd toe 07/12/17 Completed RLE Surgical debridement of foot wound, transmetatarsal amp 4th toe, excision 3rd metatartsal and prox phalnx 06/19/17 Completed RLE angiogram w/ FOOD AND BEVERAGE ANALYST/stent p opliteal artery, FOOD AND BEVERAGE ANALYST peroneal 06/14/17 Completed RLE 5th toe amputation 04/30/17 Co mpleted RLE angiogram with intervention 02/15/17 Completed RLE Mechanical Atherectomy a nd FOOD AND BEVERAGE ANALYST of popliteal, thrombolysis/TPA and recheck 02/15/17 Completed Nephrectomy 1 04/2013 Completed Vascular surgery 02/25/13 Complete d Popliteal artery 2 02/2013 Comple prisca Plantar wart 3 01/2013 Completed Planters Warts Removed From [facility] 2012 Completed Cardiac catheterization 11/21/11 C ompleted Colonoscopy 2012 Completed Attempted Kidney Stent-Right 2011 Completed bilateral cataracts 2010 Compl eted Endoscopy 2009 Completed L carotidendartectomy 2003 Com pleted L breast biopsy 1998 Completed Rt carotidendarterectomy 1995 Completed Cholecystectomy 1988 Completed complete hysterectomy 1976 Com pleted partial oophorectomy 1970 Comp leted sinus polyp 1970 Completed Appendectomy 1961 Completed Tonsillectomy 1950 Completed Duplex Completed Duplex Completed 1right kidney 2bypass 3removal of the left foot Social History Social History Type Response Smoking Status Never smoked cigaret robert Sex Female
--- OUTSIDE RECORDS SUMMARY | 2023-01-31 23:11 | External Medical Summary ---
Author Name Unknown Address Unknown Organization K1F:LABORATORY [facility] - [address] [place] [address] Laboratory Report Ordering Provider Test Date Status KAELYN BRYAN 06/28/2021 01:26:00 Final Observation Date Value Abnormality Reference (Units ) Status WBC, Total 06/28/2021 01:26:00 9.05 4.00-10.80 (K/uL) Final RBC 06/28/2021 01:26:00 4.21 3.85-5.15 (M/uL) Final Hemoglobin 06/28/2021 01:26:00 12.9 12.0-15.3 (g/dL) Final HCT 06/28/2021 01:26:00 39.4 36.0-45.2 (%) Final MCV 06/28/2021 01:26:00 93.6 81.5-97.5 (fL) Final MCH 06/28/2021 01:26:00 30.6 27.0-34.0 (pg) Final MCHC 06/28/2021 01:26:00 32.7 32.0-36.0 (g/dL) Final RDW 06/28/2021 01:26:00 13.2 11.5-15.5 (%) Final MPV 06/28/2021 01:26:00 10.7 6.6-11.1 (fL) Final Nucleated erythrocytes/100 leukocytes [Ratio] in Blood by Automated count 06/28/2021 01:26:00 0 <=0 (/100 WBCs) Final Platelets 06/28/2021 01:26:00 178 140-400 (K/uL) Final Performing Location LABORATORY [facility] - [address] [place] [address]
--- OUTSIDE RECORDS SUMMARY | 2023-01-31 23:11 | External Medical Summary ---
Author Name Unknown Address Unknown Organization K1F:LABORATORY [facility] - [address] [place] [address] Laboratory Report Ordering Provider Test Date Status CATHERINE MORALES 06/28/2021 01:26:00 Final Observation Date Value Abnormality Reference (Units ) Status TSH 06/28/2021 01:26:00 1.02 0.27-4.20 (uIU/mL) Final Performing Location LABORATORY [facility] - [address] [place] [address]
--- OUTSIDE RECORDS SUMMARY | 2023-01-31 23:11 | External Medical Summary | Continuity of Care Document ---
Author Name Unknown Organization [facility] Address [address] [place] [id number] Care Team Providers Care Competency Evaluated Nurse Aide Name Role Phone Agustín Jarvis Primary Care Physician [id number] Date[facility] 08/29/20 - 08/29/[address] [phone] Discharge Disposition: Home or Self Care Attending Physician: MD Short Michael C Referring Physician: MD Short Michael C Allergies, Adverse Reactions, Alerts Substance Reaction Severity [...] PO, Daily Start Date: 03/17/15 Status: Ordered Bactrim DS 800 mg-160 mg oral tablet Start: 08/29/20 10:13:00 EDT, 1 tab, PO, bid, Disp# 10 tab, Pharmacy: [id number] Start Date: 08/29/20 Stop Date: 09/03/20 Status: Ordered carvedilol Start: 02/28/16 13:30:00 EDT, 25 mg =, PO, bid Start Date: 02/28/16 Status: Ordered HumaLOG Start: 01/29/14 14:18:00, subQ, qid, sliding scale per BS readings up to 50-60 units daily Start Date: 01/29/14 Status: Ordered Levemir Start: 01/29/14 14:19:00 EDT, See Instructions, 30 units subQ qPM Start Date: 01/29/14 Status: Ordered levothyroxine Start: 01/28/19 13:17:00 EDT, 125 mcg =, PO, Daily Start Date: 01/28/19 Status: Ordered losartan 100 mg oral tablet Start: 09/14/15 11:43:00, 1 tab, PO, Daily, Disp# 90, Refills: 3 Start Date: 09/14/15 Status: Ordered omeprazole 20 mg oral delayed release tablet Start: 06/12/12 14:01:00, 1 tab, PO, bid Start Date: 06/12/12 Status: Ordered oxyCODONE 5 mg oral capsule Start: 08/29/20 10:12:00 EDT, 1 cap, PO, q4h, Disp# 20 cap, Refills: 0, PRN: as needed for pain, Pharmacy: [id number] Start Date: 08/29/20 Status: Ordered Plavix 75 mg oral tablet Start: 02/28/13 8:34:00, 1 tab, PO, Daily Start Date: 02/28/13 Status: Ordered Probiotic Formula Start: 06/04/17 14:23:00, 1 cap, PO, Daily Start Date: 06/04/17 Status: Ordered Procardia XL 30 mg oral tablet, extended release Start: 11/04/12 17:26:21, 1 tab, PO, Daily, Disp# 90 tab, Refills: 2, Pharmacy: [facility] Start Date: 11/04/12 Status: Ordered spironolactone 25 mg oral tablet Start: 06/12/12 14:40:00, 1 tab, PO, bid, Disp# 60 tab, Refills: 3, Pharmacy: [id number] Start Date: 06/12/12 Status: Ordered Vitamin D3 [...] (renal artery stenosis)(Confirmed) Active Secondary hyperparathyroidism(Confirmed) Active Thyroid disease(Confirmed) Active Type II diabetes mellitus(Confirmed) Active Vaginitis(Confirmed) Active Weight disorder(Confirmed) Active Procedures Procedure Date Related Diagnosis Body Site Status LLE angiogram without intervention 03/25/20 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 09/02/19 Completed lle angio w assistant passenger locomotive engineer l peroneal a nd stent l common iliac art 07/15/19 Completed Abdominal aortogram w/ HIGH PRESSURE BOILER OPERATOR/s tent of paulo PONCHO 07/06/19 Completed RLE HOME SERVICE DIRECTOR - Endarterectomy of the common femoral artery wi/ bovine patch and fem-ant tib in situ bypass 04/17/19 Compl eted RLE Angiogram without intervention 04/03/19 Completed Revision RLE transmetatarsal amputation 11/11/18 Completed RLE angiogram w/ HIGH PRESSURE BOILER OPERATOR peronea l and popliteal artery 10/10/18 Completed Amputation of left 1st toe a nd metatarsal 02/11/18 Completed RLE angiogram w/ HIGH PRESSURE BOILER OPERATOR peroneal 11/22/17 Completed RLE angiogram w/ HIGH PRESSURE BOILER OPERATOR peronea l, TP trunk and pop 09/16/17 Completed Amputation of Right 3rd toe 07/12/17 Completed RLE Surgical debridement of foot wound, transmetatarsal amp 4th toe, excision 3rd metatartsal and prox phalnx 06/19/17 Completed RLE angiogram w/ HIGH PRESSURE BOILER OPERATOR/stent p opliteal artery, HIGH PRESSURE BOILER OPERATOR peroneal 06/14/17 Completed RLE 5th toe amputation 04/30/17 Co mpleted RLE angiogram with intervention 02/15/17 Completed RLE Mechanical Atherectomy a nd HIGH PRESSURE BOILER OPERATOR of popliteal, thrombolysis/TPA and recheck 02/15/17 [...] 2bypass 3removal of the left foot Results Orders for Microbiology Reports Name Date Anaerobe Culture, Bone (CULTURE,ANER(BON E)) 08/29/20 Bone Culture (CULTURE, BONE) 08/29/20 Microbiology Reports TEST:Anaerobe.Culture, Bone STATUS:Unauthenticated BODY SITE: SOURCE:Bone COLLECTED DATE/TIME:08/29/20 2:07 PM Culture NO GROWTH 2 DAYS TEST:Bone.Cx STATUS:Unauthenticated BODY SITE: SOURCE:Bone COLLECTED DATE/TIME:08/29/20 2:07 PM Culture NO GROWTH 2 DAYS Social History Social History Type Response Smoking Status Never smoked cigaret robert Sex Female
--- OUTSIDE RECORDS SUMMARY | 2023-01-31 23:11 | External Medical Summary | Continuity of Care Document ---
Author Name Unknown Organization [facility] [address] [place], [place] [id number] Care Team Providers Care Customs Director Name Role Phone Agustín Jarvis Primary Care Physician [phone] [id number](s[facility] 04/13/21 - 04/13/21 [facility] [address] [place], [place] [id number] Encounter Diagnosis Atherosclerosis of [place] arteries of extremities with gangrene, bilateral legs (Final) - Discharge Disposition: Home or Self Care Attending Physician: EDILIA Pastor Lynn Referring Physician: EDILIA Pastor Lynn Allergies, Adverse Reactions, Alerts Substance Reaction Severity Status avtarnevaeh tripp brito Active IVP dye hives Active [...] q8h Start 12 hr before procedure/study, Pharmacy: [id number] Start Date: 04/13/21 Status: Ordered Probiotic Formula Start: 06/04/17 14:23:00, 1 cap, PO, Daily Start Date: 06/04/17 Status: Ordered Procardia XL 30 mg oral tablet, extended release Start: 11/04/12 17:26:21, 1 tab, PO, Daily, Disp# 90 tab, Refills: 2, Pharmacy: [facility] Start Date: 11/04/12 Status: Ordered spironolactone 25 mg oral tablet Start: 06/12/12 14:40:00, 1 tab, PO, bid, Disp# 60 tab, Refills: 3, Pharmacy: [id number] Start Date: 06/12/12 Status: [...] knee amputation 09/02/19 Completed lle angio w lpta l peroneal a nd stent l common iliac art 07/15/19 Completed Abdominal aortogram w/ ENCAPSULATOR/s tent of paulo PONCHO 07/06/19 Completed RLE INDUSTRIAL ECOLOGY TECHNICIAN - Endarterectomy of the common femoral artery wi/ bovine patch and fem-ant tib in situ bypass 04/17/19 Compl eted RLE Angiogram without intervention 04/03/19 Completed Revision RLE transmetatarsal amputation 11/11/18 Completed RLE angiogram w/ ENCAPSULATOR peronea l and popliteal artery 10/10/18 Completed Amputation of left 1st toe a nd metatarsal 02/11/18 Completed RLE angiogram w/ ENCAPSULATOR peroneal 11/22/17 Completed RLE angiogram w/ ENCAPSULATOR peronea l, TP trunk and pop 09/16/17 Completed Amputation of Right 3rd toe 07/12/17 Completed RLE Surgical debridement of foot wound, transmetatarsal amp 4th toe, excision 3rd metatartsal and prox phalnx 06/19/17 Completed RLE angiogram w/ ENCAPSULATOR/stent p opliteal artery, ENCAPSULATOR peroneal 06/14/17 Completed RLE 5th toe amputation 04/30/17 Co mpleted RLE angiogram with intervention 02/15/17 Completed RLE Mechanical Atherectomy a nd ENCAPSULATOR of popliteal, thrombolysis/TPA and recheck 02/15/17 Completed [...] 2bypass 3removal of the left foot Results Laboratory List Name Date Blood Urea Nitrogen (BUN) 04/13/21 Creatinine Level (CREAT W/GFR (EST.)) Most recent to oldest [Reference Range]: 1 Estimated CrCl 46.33 mL/min (04/13/21 11:55 AM) Estimated GFR, Black Race [>60 mL/min/1. 73 m2] 56 mL/min/1.73 m2 *LOW* (04/13/21 10:17 AM) Estimated GFR, non-Black Race [>60 mL/mi n/1.73 m2] 46 mL/min/1.73 m2 1 *LOW* (04/13/21 10:17 AM) BUN [7-20 mg/dL] 26 mg/dL 2 *HI* (04/13/21 10:17 AM) Cret [0.60-1.00 mg/dL] 1.15 mg/dL *HI* (04/13/21 10:17 AM) 1Result Comment: Testing Performed By: Dept of Pathology [facility] [address], [address], [place] [address] 2Result Comment: Testing Performed By: Dept of Pathology [facility] [address], [address], [place] [address] Social History Social History Type Response Smoking Status Never smoked cigaret robert Sex Female
--- OUTSIDE RECORDS SUMMARY | 2023-01-31 23:11 | External Medical Summary | Continuity of Care Document ---
Author Name Unknown Organization [place] [facility] [facility] Address [address] [place], [place] [id number] Care Team Providers Care Electrical Tech/Project Manager Name Role Phone Jarvis, Agustín Sánchez Primary Care Physician [phone] [id number] Date(s): 04/13/21 - 04/13/21 [place] [address], [address] [place] [address] [phone] Discharge Disposition: Home or Self Care Attending [...] q8h Start 12 hr before procedure/study, Pharmacy: [id number] Start Date: 04/13/21 Status: [...] bid, Disp# 60 tab, Refills: 3, Pharmacy: [id number] Start Date: 06/12/12 Status: [...] knee amputation 09/02/19 Completed lle angio w charter boat captain l peroneal a nd stent l common iliac art 07/15/19 Completed Abdominal aortogram w/ INFORMATICS NURSE/s tent of paulo PONCHO 07/06/19 Completed RLE INCOME AUDITOR - Endarterectomy of the common femoral artery wi/ bovine patch and fem-ant tib in situ bypass 04/17/19 Compl eted RLE Angiogram without intervention 04/03/19 Completed Revision RLE transmetatarsal amputation 11/11/18 Completed RLE angiogram w/ INFORMATICS NURSE peronea l and popliteal artery 10/10/18 Completed Amputation of left 1st toe a nd metatarsal 02/11/18 Completed RLE angiogram w/ INFORMATICS NURSE peroneal 11/22/17 Completed RLE angiogram w/ INFORMATICS NURSE peronea l, TP trunk and pop 09/16/17 Completed Amputation of Right 3rd toe 07/12/17 Completed RLE Surgical debridement of foot wound, transmetatarsal amp 4th toe, excision 3rd metatartsal and prox phalnx 06/19/17 Completed RLE angiogram w/ INFORMATICS NURSE/stent p opliteal artery, INFORMATICS NURSE peroneal 06/14/17 Completed RLE 5th toe amputation 04/30/17 Co mpleted RLE angiogram with intervention 02/15/17 Completed RLE Mechanical Atherectomy a nd INFORMATICS NURSE of popliteal, thrombolysis/TPA and recheck 02/15/17 Completed Nephrectomy 1 04/2013 Completed Vascular surgery 02/25/13 Complete d Popliteal artery 2 02/2013 Comple prisca Plantar wart 3 01/2013 Completed Planters Warts Removed From Foor 2013 Completed Cardiac catheterization 11/21/11 C ompleted Colonoscopy [...] Exam Date Time Procedure Performing Provider Status 04/13/21 9:24 AM VL Lower Ext Arterial Duplex Limited Judi Carpio; Final Notes: (VL Lower Ext Arterial Duplex Limited) Reason For Exam: fem tib bypass VL Lower Ext Arterial Duplex Limited [facility] FINAL REPORT Name: BARRON BOND : 1945 Visit: [id number] Date: 13 Apr 2021 TYPE OF TEST: Extremity Arterial Duplex REASON FOR TEST PAD, Left LE bypass graft INTERPRETATION/FINDINGS Arterial duplex imaging performed of the LEFT lower extremity arteries and popliteal artery to peroneal artery bypass graft with vein: 1. No hemdynamically significant stenosis in the distal external iliac, common femoral, proximal profunda femoris or superficial femoral arteries. 2. Patent [id number] popliteal artery to mid-calf peroneal artery bypass graft with no evidence of stenosis at the proximal anastomosis, throughout the graft or at the distal anastomosis. A monophasic signal is demonstrated in the mid and distal segments of the graft. Low mid graft velocity of 24.2 cm/s suggests a compromised graft. 3. 75-99% stenosis (PSV 471 cm/sec) of the outflow peroneal artery just distal to the BPG distal anastomosis. 4. The left ankle/brachial index is 0.56 (moderately reduced). Left digit Doppler signal was inaudible. 5. Unable to obtain right ankle/brachial index due to right leg amputation. Compared to the previous study performed 02/15/2020, there is better visualization of the outflow peroneal artery on today's exam, demonstrating a severe BPG outflow stenosis not previously seen. The left ARABELLA is unchanged, suggesting the stenosis was likely present before as well. IMPRESSION/COMMENTS I have personally reviewed the data relevant to the interpretation of this study. TECHNOLOGIST: Judi SEXTON, RD, RVT PHYSICIAN: Wesley Umana M.D. Signed: 04/13/2021 10:28 AM Final Dictated by:MD Umana Eugene J Dictated DT/TM:04/13/2021 10:28 Signed by:MD Umana Eugene J Signed (Electronic Signature):04/13/2021 10:28 Transcribed by:HUGO Social History Social History Type Response Smoking Status Never smoked cigaret robert Sex Female
--- OUTSIDE RECORDS SUMMARY | 2023-01-31 23:11 | External Medical Summary | Continuity of Care Document ---
Author Name Unknown Organization [address] [place], [place] [id number] Care Team Providers Care Acquisitions Editor Name Role Phone Agustín Jarvis Primary Care Physician [phone] Encounter [facility] [id number] Date(s): 05/08/21 - 05/08/21 [facility] [address] [place] [address] [phone] Encounter Diagnosis S/P femoral-tibial bypass(Discharge Diagnosis) - 05/08/21 Discharge Disposition: Home or Self Care Attending Physician: MD Umana Eugene J Referring Physician: MD Jarvis Eric K Allergies, Adverse Reactions, Alerts Substance Reaction Severity Status enstonya juniormarianna brito Active IVP dye hives Active CHECO [...] q8h Start 12 hr before procedure/study, Pharmacy: [id number] Start Date: 04/13/21 Status: Ordered Probiotic Formula Start: 06/04/17 14:23:00, 1 cap, PO, Daily Start Date: 06/04/17 Status: Ordered Procardia XL 30 mg oral tablet, extended release Start: 11/04/12 17:26:21, 1 tab, PO, Daily, Disp# 90 tab, Refills: 2, [facility] Start Date: 11/04/12 Status: Ordered spironolactone 25 mg oral tablet Start: 06/12/12 14:40:00, 1 tab, PO, bid, Disp# 60 tab, Refills: 3, Pharmacy: [id number] Start Date: 06/12/12 Status: Ordered Vitamin D3 1000 intl units oral tablet Start: 01/29/14 14:20:00, 1 tab, PO, Daily Start Date: 01/29/14 Status: Ordered Mental Status 05/08/21 Barriers to Learning one year None evide nt, Vision impairment, Other: Mandatory Health Literacy Documentation Yes Health Literacy Communication Barriers N ever Problem List Condition Effective Dates Status Health [...] Dates Health Status Cl inical Service Informant S/P femoral-tibial bypass Discharge Diagnosis 05/08/21 Procedures Procedure Date Related Diagnosis Body Site Status LLE Angiogram w/ LOW PRESSURE BOILER OPERATOR peroneal artery 04/21/21 Completed LLE angiogram without intervention 03/25/20 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 09/02/19 Completed lle angio w prior authorization nurse l peroneal a nd stent l common iliac art 07/15/19 Completed Abdominal aortogram w/ LOW PRESSURE BOILER OPERATOR/s tent of paulo PONCHO 07/06/19 Completed RLE SUGAR HOUSE SUPERVISOR - Endarterectomy of the common femoral artery wi/ bovine patch and fem-ant tib in situ bypass 04/17/19 Compl eted RLE Angiogram without intervention 04/03/19 Completed Revision RLE transmetatarsal amputation 11/11/18 Completed RLE angiogram w/ LOW PRESSURE BOILER OPERATOR peronea l and popliteal artery 10/10/18 Completed Amputation of left 1st toe a nd metatarsal 02/11/18 Completed RLE angiogram w/ LOW PRESSURE BOILER OPERATOR peroneal 11/22/17 Completed RLE angiogram w/ LOW PRESSURE BOILER OPERATOR peronea l, TP trunk and pop 09/16/17 Completed Amputation of Right 3rd toe 07/12/17 Completed RLE Surgical debridement of foot wound, transmetatarsal amp 4th toe, excision 3rd metatartsal and prox phalnx 1/17/18 Completed RLE angiogram w/ LOW PRESSURE BOILER OPERATOR/stent p opliteal artery, LOW PRESSURE BOILER OPERATOR peroneal 06/14/17 Completed RLE 5th toe amputation 04/30/17 Co mpleted RLE angiogram with intervention 02/15/17 Completed RLE Mechanical Atherectomy a nd LOW PRESSURE BOILER OPERATOR of popliteal, thrombolysis/TPA and [...] [Reference Range]: 1 Heart Rate 65 bpm (05/08/21 3:08 PM) Blood Pressure 174/66mmHg (05/08/21 3:08 PM) Cuff Pulse Pressure 108 mmHg (05/08/21 3:08 PM) BP Location # 1 Right Arm (05/08/21 3:08 PM) Social History Social History Type Response Smoking Status Never smoked cigaret robert Sex Female
--- OUTSIDE RECORDS SUMMARY | 2023-01-31 23:11 | External Medical Summary ---
Author Name Unknown Address Unknown Organization K01:[facility] [place] [address] [facility] [address] Laboratory Report Ordering Provider Test Date Status BASIL PRICETEO 06/28/2021 01:26:00 Final Observation Date Value Abnormality Reference (Units ) Status HbA1C 06/28/2021 01:26:00 7.3 Above high normal 4. 0-5.6 (%) Final Performing Location [facility] [address] [facility] [address]
--- OUTSIDE RECORDS SUMMARY | 2023-01-31 23:11 | External Medical Summary | Continuity of Care Document ---
Author Name Unknown Organization [place] [address] [facility] [address] [place] [address] Care Team Providers Care Upholsterer Limousine And Hearse Name Role Phone Agustín Jarvis Primary Care Physician [phone] Encounter [facility] [id number] Date(s): 09/13/20 - 09/13/20 [facility] [address] [facility] [place] [address] [facility] [address], [address] [place] [address] [phone] Encounter Diagnosis Ulcer of heel(Discharge Diagnosis) - 09/13/20 Postop check(Discharge Diagnosis) - 09/13/20 Discharge Disposition: Home or Self Care Attending Physician: LEONARDO Shepherd Lauren O Referring Physician: MD Matheus, Agustín Sánchez Allergies, Adverse Reactions, Alerts Substance Reaction Severity Status avtarnevaeh tripp brito Active IVP dye hives Active CHECO Inhibitors Swelling Hives Active Assessment and Plan Extracted from: Title:Office Visit Note Author:LEONARDO Shepherd Lau ren O Date:09/13/20 Two weeks postopthe above mentioned procedure, stable at this point without evidence of osteomyelitis insurgical culture. 1.Wet to dry dressing to wound bed. She will follow up with wound care for further assistance to get this closed. Discussed using reverse camper shoe vs bivalve total contact cast. Patient elects to forgo TCC at this time as she livesa distance away and cares for her . A script was given for this today and she will call if wanting to persue this further. 2.Hygiene: May not get thewound wet. Educated to use a wet washcloth to clean surrounding areas. 3.Weight bearing status:continue to limit weight bearing in reverse camper shoe. 4.The patient will follow up with Dr. Short in approximately 4 weeks for repeat evaluation. 5.Xrays on follow-up: None 6.DVT Prophylaxis: continue with plavix as she regularly takes. 7.Pain medicine: PDMP checked. 1,000 mg Tylenol (Acetaminophen) by mouth every 8 hours as needed for pain. Do NOT exceed 3,000 mg in a 24 hour period of time. This may be obtained over the counter. 8.Instructed to call or report to Emergency Department if calf pain, SOB, CP, fevers, chills, N/V. Patient understands and agrees with the plan. Medications acetaminophen Start: 04/07/20 10:46:00 EST, 500 [...] tab, PO, bid, Disp# 10 tab, Pharmacy: [place] [id number] Start Date: 08/29/20 Stop Date: 09/03/20 Status: [...] 0, PRN: as needed for pain, Pharmacy: [id number] Start Date: 08/29/20 Status: Ordered Plavix 75 mg oral tablet Start: 02/28/13 8:34:00, 1 tab, PO, Daily Start Date: 02/28/13 Status: Ordered Probiotic Formula Start: 06/04/17 14:23:00, 1 cap, PO, Daily Start Date: 06/04/17 Status: Ordered Procardia XL 30 mg oral tablet, extended release Start: 11/04/12 17:26:21, 1 tab, PO, Daily, Disp# 90 tab, Refills: 2, Pharmacy: [facility] Start Date: 11/04/12 Status: Ordered spironolactone 25 mg oral tablet Start: 06/12/12 14:40:00, 1 tab, PO, bid, Disp# 60 tab, Refills: 3, Pharmacy: 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 09/02/19 Completed lle angio w field captain l peroneal a nd stent l common iliac art 07/15/19 Completed Abdominal aortogram w/ MUSHROOM PACKER/s tent of paulo PONCHO 07/06/19 Completed RLE PROPERTY MANAGEMENT ASSISTANT - Endarterectomy of the common femoral artery wi/ bovine patch and fem-ant tib in situ bypass 04/17/19 Compl eted RLE Angiogram without intervention 04/03/19 Completed Revision RLE transmetatarsal amputation 11/11/18 Completed RLE angiogram w/ MUSHROOM PACKER peronea l and popliteal artery 10/10/18 Completed Amputation of left 1st toe a nd metatarsal 02/11/18 Completed RLE angiogram w/ MUSHROOM PACKER peroneal 11/22/17 Completed RLE angiogram w/ MUSHROOM PACKER peronea l, TP trunk and pop 09/16/17 Completed Amputation of Right 3rd toe 07/12/17 Completed RLE Surgical debridement of foot wound, transmetatarsal amp 4th toe, excision 3rd metatartsal and prox phalnx 06/19/17 Completed RLE angiogram w/ MUSHROOM PACKER/stent p opliteal artery, MUSHROOM PACKER peroneal 06/14/17 Completed RLE 5th toe amputation 04/30/17 Co mpleted RLE angiogram with intervention 02/15/17 Completed RLE Mechanical Atherectomy a nd MUSHROOM PACKER of popliteal, thrombolysis/TPA and recheck 02/15/17 Completed Nephrectomy 04/2013 Completed Vascular surgery 02/25/13 Complete d Popliteal artery 2 02/2013 Comple prisca Plantar wart 3 01/2013 Completed Planters Warts Removed From [facility] 2012 Completed Cardiac catheterization 11/21/11 C ompleted [...] Most recent to oldest [Reference Range]: 1 Temperature [36.5-38 DegC] 36.7 DegC (09/13/20 1:31 PM) Social History Social History Type Response Smoking Status Never smoked cigaret robert Sex Female
--- OUTSIDE RECORDS SUMMARY | 2023-01-31 23:11 | External Medical Summary | Summary of Care ---
Author [place] [address] Care Team Providers Care Plant Facilities Technician Name Role Phone Agustín Jarvis MD Primary Care Provider Reason for Referral * Precert (Within 10 days (routine)) Status Reason Specialty Diagnoses / Procedures Referred By Contact Referred To Contact Authorized Radiology Diagnoses Unspecified abdominal pain Left lower quadrant pain Procedures CT ABD/PELVIS WO IV CONTRAST - W ORAL CONTRAST Radiology [facility] [address] [place] [address] Electronically signed by Agustín Jarvis MD at Encounter Details Date Type Department Care Team Description 10/20/2020 Orders Only Radiology, [facility] [address] [place] [address] Requisition, External Radiology [address] [place], [place] [id number] Unspecified abdominal pain*; Left lower quadrant pain Allergies Active Allergy Reactions Severity Noted Date Comments Insulin Glargine Hives 06/01/2010 Lantus Ivp Dye Hives 08/05/2006 Insulin Aspart 08/05/2006 hives Lisinopril Edema Other 06/01/2010 Angioedema documented as of this encounter (statuses as of 10/20/2020) Medications Medication Sig Dispensed Refills Start Date End Date Status ALBUTEROL 90 MCG/ACT IN AERS 2 puffs every 4 hrs as needed 1 MDI 5 08/05/2006 Active ADVAIR DISKUS 500-50 MCG/DOSE IN MISC as needed 1 0 08/05/2006 Active LEVEMIR 100 UNIT/ML SUBQ SOLN 36 units at night 0 Active ATORVASTATIN CALCIUM 80 MG PO TABS one [...] CAPS one pill once a day 0 Ac tive Losartan Potassium 100 MG Tablet Take 1 [...] to breakfast or other meds) 0 Active ofloxacin (OCUFLOX) 0.3 % ophthalmic solution Place 5 drops in the ears twice a day for 5 days when drainage is noted. These are eye drops but may be used in the ears. 5 mL 5 09/02/2018 Active documented as of this encounter (statuses as of 10/20/2020) Active Problems Problem Noted Date ETD (Eustachian tube dysfunction), bilat eral 08/04/2018 At risk for barotrauma due to hyperbaric oxygen therapy 08/04/2018 Right asymmetrical SNHL 08/04/2018 Hypothyroidism 08/05/2006 Dyslipidemia, goal to be determined 10/2006 DM type 2, not at goal 08/05/2006 HYPERTENSION NOS 08/05/2006 S/P carotid endarterectomy 08/05/2006 documented as of this encounter (statuses as of 10/20/2020) Social History Tobacco Use Types Packs/Day Years Used Date Never Smoker Smokeless Tobacco: Never Used Alcohol Use Drinks/Week oz/Week Comments Not Asked Sex Assigned at Date Recorded Not on file Job Start Date Occupation Industry Not on file Not on file Not on file documented as of this encounter Plan of Treatment Upcoming Encounters Date Type Specialty Care Team Description 10/24/2020 Appointment Radiology Prep, [facility] [address] [place] [address] [address] [phone] Scheduled Orders Name Type Priority Associated Diagnoses Orde r Schedule CT ABD/PELVIS WO IV CONTRAST - W ORAL CONTRAST Medical Imaging Routine Unspecified abdominal pain Left lower quadrant pain Expected: 10/20/2020, Expires: 10/20/2021 Health Maintenance Due Date Last Done Comments Pneumococcal Vaccine: 65+ Years (1 of 2 - PPSV23) 1951 COVID-19 Vaccine (1) 1957 DIABETES-EYE EXAM 1964 DIABETES-FOOT EXAM 1964 DIABETES-HGBA1C EVERY 6 MONTHS 1964 DTaP,Tdap,and Td Vaccines (1 - Tdap) 1965 BREAST CANCER SCREENING DISCUSSION YEARLY AGES 40-75 1986 Zoster Vaccines (1 of 2) 1996 Dexa Scan 2011 *DEPRESSION SCREENING,ANNUAL FOR PTS 12 AND OVER 03/24/2016 *URINE PROTEIN ONCE FOR HTN-DIPSTICK ACCEPTABLE 03/24/2016 COLONOSCOPY-EVERY 3 YRS AGES 18-100 08/02/2017 08/02/2014, 08/02/2014, 08/23/2011, Additional history exists *BASIC METABOLIC PANEL (BMP) FOR HTN YEARLY 09/09/2020 *TSH FOR THYROID MEDICATION MONITORING YEARLY 09/09/2020 Influenza Vaccine (FLU shot) (Season Ended) 2021 MENINGOCOCCAL (MENACTRA/MENVEO) Aged Out No longer eligible based on patient's age to complete this topic documented as of this encounter Implants Not on filedocumented as of this encounter Visit Diagnoses Diagnosis Unspecified abdominal pain- Primary Left lower quadrant pain Abdominal pain, left lower quadrant documented in this encounter Advance Directives Documents on File Type Date Recorded Patient Front Desk Expl anation Advanced Directive service a ronn default Advanced Directive Advanced Directive Advanced Directive Advanced Directive Advanced Directive Advanced Directive Advanced Directive Advanced Directive Advanced Directive Advanced Directive Advanced Directive Advanced Directive Advanced Directive Advanced Directive
--- OUTSIDE RECORDS SUMMARY | 2023-01-31 23:11 | External Medical Summary ---
Author Name Unknown Address Unknown Organization [id number]:LABORATORY [facility] - [address] [place] [address] Laboratory Report Ordering Provider Test Date Status JANAY PRICEKallie 06/28/2021 01:26:00 Final Observation Date Value Abnormality Reference (Units ) Status PT 06/28/2021 01:26:00 14.1 11.5-14.6 (seconds) Final INR 06/28/2021 01:26:00 1.07 0.84-1.14 Final Performing Location LABORATORY [facility] - [address] [place] [address]
--- OUTSIDE RECORDS SUMMARY | 2023-01-31 23:11 | External Medical Summary ---
Author Name Unknown Address Unknown Organization K1F:LABORATORY [facility] - [address] [place] [address] Laboratory Report Ordering Provider Test Date Status DANG BRYANYYUM 06/28/2021 01:26:00 Final Observation Date Value Abnormality Reference (Units ) Status Troponin T 06/28/2021 01:26:00 19 Above high normal < =14 (ng/L) Final Performing Location LABORATORY [facility] - [address] [place] [address]
--- OUTSIDE RECORDS SUMMARY | 2023-01-31 23:11 | External Medical Summary ---
Author Name Unknown Address Unknown Organization K1F:LABORATORY [facility] - [address] [place] [address] Laboratory Report Ordering Provider Test Date Status KAELYN BRYAN 06/28/2021 01:26:00 Final Observation Date Value Abnormality Reference (Units ) Status BUN 06/28/2021 01:26:00 24 Above high normal 6-20 (mg/dL) Final Creatinine 06/28/2021 01:26:00 1.1 Above high normal 0.5-1.0 (mg/dL) Final Glomerular filtration rate/1.73 sq M.predicted [Volume Rate/Area] in Serum, Plasma or Blood by Creatinine-based formula (CKD-EPI) 06/28/2021 01:26:00 52 Below low normal >=60 (mL/min) Final Performing Location LABORATORY [facility] - [address] [place] [address]
--- OUTSIDE RECORDS SUMMARY | 2023-01-31 23:11 | External Medical Summary ---
Author Name Unknown Address Unknown Organization K1F:LABORATORY [facility] - [address] [place] [address] Laboratory Report Ordering Provider Test Date Status CATHERINE MORALES 06/28/2021 01:26:00 Final Observation Date Value Abnormality Reference (Units ) Status Body temperature 06/28/2021 01:26:00 37.0 (C) Final pH of Venous blood 06/28/2021 01:26:00 7.245 Below low normal 7.320-7.430 (units) Final Carbon dioxide [Partial pressure] in Venous blood 06/28/2021 01:26:00 55.4 40.0-60.0 (mmHg) Final Oxygen [Partial pressure] in Venous blood 06/28/2021 01:26:00 31.1 25.0-50.0 (mmHg) Final Base excess, Capillary 06/28/2021 01:26:00 -4.4 Below low normal -2.0-2.0 (mmol/L) Final Hemoglobin [Mass/volume] in Blood by Oximetry 06/28/2021 01:26:00 13.4 12.0-15.3 (g/dL) Final Oxyhemoglobin, Venous (FO2HB) 06/28/2021 01:26:00 46.7 40.0-85.0 (% total Hgb) Final Carboxyhemoglobin 06/28/2021 01:26:00 0.4 <=1.5 (% total Hgb) Final Performing Location [facility] [address] [facility] [place] [address]
--- OUTSIDE RECORDS SUMMARY | 2023-01-31 23:11 | External Medical Summary | Continuity of Care Document ---
Author Name Unknown Organization [place] [address] [facility] Address [address] [place], [place] [address] Care Team Providers Care Client Coordinator Name Role Phone JarvisAgustín Primary Care Physician [phone] [id number] Date(s): 04/13/21 - 04/13/21 [facility] [address], [address] [place] [address] [phone] Encounter Diagnosis Atherosclerosis(Discharge Diagnosis) - 04/13/21 Carotid artery stenosis(Discharge Diagnosis) - 04/13/21 Discharge Disposition: Home or Self Care Attending Physician: MD Umana Eugene J Referring Physician: MD Umana Eugene J Allergies, Adverse Reactions, Alerts Substance Reaction Severity Status rony tripp brito Active IVP dye hives Active [...] q8h Start 12 hr before procedure/study, Pharmacy: [id number] Start Date: 04/13/21 Status: Ordered Probiotic Formula Start: 06/04/17 14:23:00, 1 cap, PO, Daily Start Date: 06/04/17 Status: Ordered Procardia XL 30 mg oral tablet, extended release Start: 11/04/12 17:26:21, 1 tab, PO, Daily, Disp# 90 tab, Refills: 2, [facility] Start Date: 11/04/12 Status: Ordered spironolactone 25 mg oral tablet Start: 06/12/12 14:40:00, 1 tab, PO, bid, Disp# 60 tab, Refills: 3, Pharmacy: [id number] Start Date: 06/12/12 Status: Ordered Vitamin D3 1000 intl units oral tablet Start: 01/29/14 14:20:00, 1 tab, PO, Daily Start Date: 01/29/14 Status: Ordered Mental Status 04/13/21 Barriers to Learning one year None evide [...] Effective Dates Health Status Clinical Service Informant Atherosclerosis Discharge Diagnosis 04/13/21 Carotid artery stenosis Discharge Diagnosis 04/13/21 Procedures Procedure Date Related Diagnosis Body Site Status LLE angiogram without intervention 03/25/20 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 09/02/19 Completed lle angio w water vessel captain l peroneal a nd stent l common iliac art 07/15/19 Completed Abdominal aortogram w/ BURNER TECHNICIAN/s tent of paulo PONCHO 07/06/19 Completed RLE BEATER ROOM SUPERVISOR - Endarterectomy of the common femoral artery wi/ bovine patch and fem-ant tib in situ bypass 04/17/19 Compl eted RLE Angiogram without intervention 04/03/19 Completed Revision RLE transmetatarsal amputation 11/11/18 Completed RLE angiogram w/ BURNER TECHNICIAN peronea l and popliteal artery 10/10/18 Completed Amputation of left 1st toe a nd metatarsal 02/11/18 Completed RLE angiogram w/ BURNER TECHNICIAN peroneal 11/22/17 Completed RLE angiogram w/ BURNER TECHNICIAN peronea l, TP trunk and pop 09/16/17 Completed Amputation of Right 3rd toe 07/12/17 Completed RLE Surgical debridement of foot wound, transmetatarsal amp 4th toe, excision 3rd metatartsal and prox phalnx 06/19/17 Completed RLE angiogram w/ BURNER TECHNICIAN/stent p opliteal artery, BURNER TECHNICIAN peroneal 06/14/17 Completed RLE 5th toe amputation 04/30/17 Co mpleted RLE angiogram with intervention 02/15/17 Completed RLE Mechanical Atherectomy a nd BURNER TECHNICIAN of popliteal, thrombolysis/TPA and recheck 02/15/17 Completed [...] oldest [Reference Range]: 1 2 Heart Rate 61 bpm (04/13/21 9:12 AM) Blood Pressure 134/60mmHg (04/13/21 9:13 AM) 138/56mmHg (04/13/21 9:12 AM) Cuff Pulse Pressure 74 mmHg (04/13/21 9:13 AM) 82 mmHg (04/13/21 9:12 AM) BP Location # 1 Right Arm (04/13/21 9:13 AM) Left Arm (04/13/21 9:12 AM) Social History Social History Type Response Smoking Status Never smoked cigaret robert Sex Female
--- OUTSIDE RECORDS SUMMARY | 2023-01-31 23:11 | External Medical Summary ---
Author Name Unknown Address Unknown Organization : Laboratory Report Ordering Provider Test Date Status NO,UNKNOWN 06/28/2021 00:19:46 Final Observation Date Value Abnormality Reference (Units ) Status Glucose Point of Care 06/28/2021 00:19:46 80 70-120 (mg/dL) Final Performing Location
--- OUTSIDE RECORDS SUMMARY | 2023-01-31 23:11 | External Medical Summary | Continuity of Care Document ---
Author Name Unknown Organization [place] [address] [address] Address [address] [facility] [address] [place] [address] Care Team Providers Care Change Coordinator Name Role Phone Agustín Jarvis Primary Care Physician [phone] [id number] Date(s): 09/13/20 - 09/13/20 [facility] [address] [facility] [place] [address] [facility] [address], [address] [place] [address]- [phone] Discharge Disposition: Home or Self Care Attending Physician: EDILIA Geiger, Magi Scott Referring Physician: MD Deja, Bunny Yusuf Allergies, Adverse Reactions, Alerts Substance Reaction Severity Status rony marreronedagonzalez Active IVP dye hives Active CHECO Inhibitors [...] tab, PO, bid, Disp# 10 tab, Pharmacy: [id number] Start Date: 08/29/20 Stop Date: 09/03/20 Status: [...] 0, PRN: as needed for pain, Pharmacy: [facility] 1600 Start Date: 08/29/20 Status: Ordered Plavix 75 mg oral tablet Start: 02/28/13 8:34:00, 1 tab, PO, Daily Start Date: 02/28/13 Status: Ordered Probiotic Formula Start: 06/04/17 14:23:00, 1 cap, PO, Daily Start Date: 06/04/17 Status: Ordered Procardia XL 30 mg oral tablet, extended release Start: 11/04/12 17:26:21, 1 tab, PO, Daily, Disp# 90 tab, Refills: 2, Pharmacy: [facility] Start Date: 11/04/12 Status: Ordered spironolactone 25 mg oral tablet Start: 06/12/12 14:40:00, 1 tab, PO, bid, Disp# 60 tab, Refills: 3, Pharmacy: [facility] 160 Start Date: 06/12/12 Status: Ordered Vitamin D3 [...] knee amputation 09/02/19 Completed lle angio w river boat captain l peroneal a nd stent l common iliac art 07/15/19 Completed Abdominal aortogram w/ GLASS LAMINATING OPERATOR/s tent of paulo PONCHO 07/06/19 Completed RLE WOOD EXPERIMENTAL MECHANIC - Endarterectomy of the common femoral artery wi/ bovine patch and fem-ant tib in situ bypass 04/17/19 Compl eted RLE Angiogram without intervention 04/03/19 Completed Revision RLE transmetatarsal amputation 11/11/18 Completed RLE angiogram w/ GLASS LAMINATING OPERATOR peronea l and popliteal artery 10/10/18 Completed Amputation of left 1st toe a nd metatarsal 02/11/18 Completed RLE angiogram w/ GLASS LAMINATING OPERATOR peroneal 11/22/17 Completed RLE angiogram w/ GLASS LAMINATING OPERATOR peronea l, TP trunk and pop 09/16/17 Completed Amputation of Right 3rd toe 07/12/17 Completed RLE Surgical debridement of foot wound, transmetatarsal amp 4th toe, excision 3rd metatartsal and prox phalnx 06/19/17 Completed RLE angiogram w/ GLASS LAMINATING OPERATOR/stent p opliteal artery, GLASS LAMINATING OPERATOR peroneal 06/14/17 Completed RLE 5th toe amputation 04/30/17 Co mpleted RLE angiogram with intervention 02/15/17 Completed RLE Mechanical Atherectomy a nd GLASS LAMINATING OPERATOR of popliteal, thrombolysis/TPA and recheck 02/15/17 [...] 1 Temperature [36.5-38 DegC] 36.7 DegC (09/13/20 1:32 PM) Social History Social History Type Response Smoking Status Never smoked cigaret robert Sex Female
--- OUTSIDE RECORDS SUMMARY | 2023-01-31 23:11 | External Medical Summary ---
Author Name Unknown Address Unknown Organization K1F:LAB[facility]ATORY [facility] - [address] [place] [address] Laboratory Report Ordering Provider Test Date Status CATHERINE MORALES 06/28/2021 01:26:00 Final Observation Date Value Abnormality Reference (Units ) Status Lactic Acid 06/28/2021 01:26:00 1.5 0.4-2.0 (mmol/L) Final Performing Location LABORATORY [facility] - [address] [place] [address]
--- OUTSIDE RECORDS SUMMARY | 2023-01-31 23:11 | External Medical Summary ---
Author Name Unknown Address Unknown Organization K1F:LABORATORY [facility] - [address] [place] [address] Laboratory Report Ordering Provider Test Date Status KAELYN BRYAN 06/28/2021 01:26:00 Final Observation Date Value Abnormality Reference (Units ) Status SYNC LEUKOCYTES IN BLOOD BY AUTOMATED COUNT 06/28/2021 01:26:00 9.05 4.00-10.80 (K/uL) Final Segs 06/28/2021 01:26:00 70.1 40.0-75.0 (%) Final Lymphs % 06/28/2021 01:26:00 23.2 18.0-42.0 (%) Final Monos 06/28/2021 01:26:00 4.8 1.0-11.0 (%) Final Eosinophils 06/28/2021 01:26:00 1.4 0.0-6.0 (%) Final Basos 06/28/2021 01:26:00 0.1 0.0-2.0 (%) Final Immature Granulocyte, Percent 06/28/2021 01:26:00 0.4 0.0-2.0 (%) Final Absolute Segs 06/28/2021 01:26:00 6.34 1.80-7.70 (K/uL) Final Lymphs, absolute 06/28/2021 01:26:00 2.10 1.00-4.80 (K/ul) Final Monos, Abs 06/28/2021 01:26:00 0.43 0.00-1.10 (K/uL) Final Eos, Abs 06/28/2021 01:26:00 0.13 0.00-0.70 (K/uL) Final Basos, Abs 06/28/2021 01:26:00 0.01 0.00-0.20 (K/uL) Final Immature Granulocytes, Number 06/28/2021 01:26:00 0.04 0.00-0.20 (K/uL) Final Performing Location LABORATORY [facility] - [address] [place] [address]
--- OUTSIDE RECORDS SUMMARY | 2023-01-31 23:11 | External Medical Summary ---
Author Name Unknown Address Unknown Organization K1F:LABORATORY [facility] - [facility] [address] [place] [address] Laboratory Report Ordering Provider Test Date Status CATHERINE MORALES 06/28/2021 01:26:00 Final Observation Date Value Abnormality Reference (Units ) Status Bacteria identified in Unspecified specimen by Culture 06/28/2021 01:26:00 No growth Final Performing Location LABORATORY [facility] - [address] [place] [address]
--- OUTSIDE RECORDS SUMMARY | 2023-01-31 23:12 | External Medical Summary | Summary of Care ---
Author Name Unknown Organization [place] [address] Care Team Providers Care Dry Wall Plasterer Name Role Phone Agustín Jarvis MD Primary Care Provider [phone] Reason for Visit * Reason Comments Appointment Encounter Details Date Type Department Care Team Description 08/04/2018 Telephone Otolaryngology [facility] [address] [place] [address] Joseph Karimi II, MD [address] [facility] [place] [address] Appointment Allergies Active Allergy Reactions Severity Noted Date Comments Insulin Glargine Hives 06/01/2010 Lantus Ivp Dye Hives 08/05/2006 Insulin Aspart 08/05/2006 hives Lisinopril Edema Other 06/01/2010 Angioedema documented as of this encounter (statuses as of 08/04/2018) Medications Medication Sig Dispensed Refills Start Date End Date Status ALBUTEROL 90 MCG/ACT IN AERS 2 puffs every 4 hrs as needed 1 MDI 5 08/05/2006 Active ADVAIR DISKUS 500-50 MCG/DOSE IN MISC as needed 1 0 08/05/2006 Active LEVEMIR 100 UNIT/ML SUBQ SOLN 36 units at night 0 Active HYDROCHLOROTHIAZIDE 25 MG PO TABS 1 TABLET EVERY MORNING 0 05/13/2012 Active ATORVASTATIN CALCIUM 80 MG PO TABS one pill each day 0 Acti ve CLOPIDOGREL BISULFATE 75 MG PO TABS one pill each day 0 Acti ve HUMALOG 100 UNIT/ML SUBQ SOLN sliding scale coverage 0 Active LEVOTHYROXINE SODIUM 112 MCG OR TABS one pill each day 0 Ac tive NIFEDIPINE ER 30 MG PO TB24 one pill each day 0 Active SPIRONOLACTONE 25 MG PO TABS one pill twice a day 0 Active VITAMIN D-3 1000 UNITS PO CAPS one pill once a day 0 Ac tive Losartan Potassium 100 MG Tablet Take 1 Tab by mouth daily. 0 02/09/2016 Active omeprazole (PRILOSEC) 40 MG CPDR 0 12/06/2016 Active ZETIA 10 MG Tablet 0 10/19/2016 Active carvedilol (COREG) 25 MG Tablet 1/2 tab in the am and 1 tab in the pm 0 01/09/2017 Active cephalexin (KEFLEX) 500 MG Capsule Take 1 Cap by mouth 2 times a day. 14 Cap 0 03/28/2017 Active documented as of this encounter (statuses as of 08/04/2018) Active Problems Problem Noted Date Hypothyroidism 08/05/2006 Dyslipidemia, goal to be determined 10/2006 DM type 2, not at goal 08/05/2006 HYPERTENSION NOS 08/05/2006 S/P carotid endarterectomy 08/05/2006 documented as of this encounter (statuses as of 08/04/2018) Social History Tobacco Use Types Packs/Day Years Used Date Never Smoker Smokeless Tobacco: Never Used Sex Assigned at Date Recorded Not on file Job Start Date Occupation Industry Not on file Not on file Not on file Travel History Travel Start Travel End documented as of this encounter Miscellaneous Notes * Telephone Encounter - Julee Richter OSA - 08/04/2018 11:28 AM EST Patient has been notified of the message. Patient has no further questions. * Telephone Encounter - Roro Zabala OSA - 08/04/2018 10:46 AM EST Left message for patient to call me back, per Jane would could see the patient at [address] Sachi Read * Telephone Encounter - Madeline Peterson OSA - 08/04/2018 10:26 AM EST Yoselyn calling in to set up a sooner appointment for pt. Pt is unable to make the 2:15 appt 08/04/18. Pt would need appt scheduled for earlier in the day or tomorrow. Please contact pt to reschedule. documented in this encounter Plan of Treatment Upcoming Encounters Date Type Specialty Care Team Description 08/04/2018 Office Visit Otolaryngology Sachi RAMIREZ, Joseph Herzog MD [address] [facility] [place] [address] [phone] Health Maintenance Due Date Last Done Comments DIABETES-EYE EXAM 1963 DIABETES-FOOT EXAM 1964 DIABETES-HGBA1C EVERY 6 MONTHS 1964 DTaP,Tdap,and Td Vaccines (1 - Tdap) 1965 BREAST CANCER SCREENING DISCUSSION YEARLY AGES 40-75 1986 DXA-SCREENING EVERY 7 YRS-USE SMARTSET# 3348 TO ORDER 2011 PNEUMOCOCCAL ADULT 65 YRS AND OVER (1 of 2 - PCV13) 2011 *DEPRESSION SCREENING, ANNUAL FOR PTS 18 AND OVER 03/24/2016 *TSH FOR THYROID MEDICATION MONITORING YEARLY 03/24/2016 *URINE PROTEIN ONCE FOR HTN-DIPSTICK ACCEPTABLE 03/24/2016 *BASIC METABOLIC PANEL (BMP) FOR HTN YEARLY 01/24/2017 COLONOSCOPY-EVERY 3 YRS AGES 18-100 08/02/2017 08/02/2014, 08/02/2014, 08/23/2011, Additional history exists Influenza Vaccine (FLU shot) (#1) 2018 MENINGOCOCCAL (MENACTRA) Aged Out No longer eligible based on patient's age to complete this topic documented as of this encounter Implants Not on filedocumented as of this encounter Advance Directives Patient has advance care planning documents on file. For more information, please contact: [place] [id number]
--- OUTSIDE RECORDS SUMMARY | 2023-01-31 23:12 | External Medical Summary | Summary of Care ---
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, unspecified laterality (HCC)* Allergies Active Allergy Reactions Severity Noted Date Comments Insulin Glargine Hives 06/01/2010 Lantus Ivp Dye Hives 08/05/2006 Insulin Aspart 08/05/2006 hives Lisinopril Edema Other 06/01/2010 Angioedema documented as of this encounter (statuses as of 07/19/2020) Medications Medication Sig Dispensed Refills Start Date [...] as of this encounter (statuses as of 07/19/2020) Active Problems Problem Noted Date ETD (Eustachian tube dysfunction), bilat eral 08/04/2018 At risk for barotrauma due to hyperbaric oxygen therapy 08/04/2018 Right asymmetrical SNHL 08/04/2018 Hypothyroidism 08/05/2006 Dyslipidemia, goal to be determined 10/2006 DM type 2, not at goal 08/05/2006 HYPERTENSION NOS 08/05/2006 S/P carotid endarterectomy 08/05/2006 documented as of this encounter (statuses as of 07/19/2020) Social History Tobacco Use Types Packs/Day Years Used Date Never Smoker Smokeless Tobacco: Never Used Alcohol Use Drinks/Week oz/Week Comments Not Asked Sex Assigned at Date Recorded Not on file Job Start Date Occupation Industry Not on file Not on file Not on file documented as of this encounter Progress Notes * Morteza Brewster MD - 07/19/2020 9:49 AM EST ID TELEPHONE VISIT - 07/19/20 CC: L HEEL ULCER HPI 74 year old vasculopath, has a L heel ulcer which she acquired ~ 15 months during a failed bypass surgery for her RLE which eventually led to an amputation. Following with [facility] since. A recent MRI from demonstrated (per report and images): Small focus of T1 T2 marrow signal c/w OM ROS CONSTITUTIONAL: No change in weight, No weakness, No fatigue and No fevers, sweats, or chills EYE: No recent significant change in vision, No eye pain, redness, discharge, No diplopia, No h/o cataracts and No h/o glaucoma NOSE: No history of frequent colds or sinusitis, No nasal stuffiness, No history of Hay Fever and No significant epistaxis MOUTH: No bleeding gums, thrush or sore throat NECK: No lumps or masses, No swollen glands, No recent swelling in thyroid area, No significant pain in neck and No h/o goiter or thyroid disease PULMONARY: No cough, sputum, or hemoptysis, No wheezing, No shortness or breath and No recent change in breathing CARDIOVASCULAR: No chest pain, No shortness of breath, No dyspnea on exertion, No orthopnea, No paroxysmal nocturnal dyspnea, No edema, No palpitations and No syncope BREASTS: No new breast lumps or masses, No severe breast pain, No nipple discharge, No recent change in shape/color and Performs self breast exam GASTROINTESTINAL: No abdominal pain, No change in bowel habits, No significant heartburn, No significant change in appetite, No nausea, vomiting, diarrhea, or constipation, No hematemesis, No blood in stools or black tarry stools, No abdominal bloating or early satiety and No dysphagia EXTREMITIES: R BKA ++ ++ L heel ulcer SKIN/INTEGUMENTARY: L heel ulcer NEUROLOGIC: Normal balance, No headaches, No seizures and No weakness ENDOCRINE: No heat intolerance, No cold intolerance, No thyroid trouble and No excessive thirst or urination SLEEP: No sleep disorders PMH Past Medical History: Diagnosis Date Asthma Benign neoplasm of colon 06/01/10 polyp--villous tissue repeat in 1 yr Carotid artery occlusion syndrome Carpal tunnel syndrome Cataracts, bilateral Diabetes mellitus with neuropathy (HCC) H/O unilateral nephrectomy 2013 Right Hypertension Peripheral arterial disease (HCC) Raynaud's phenomenon (secondary) Stage 3 chronic kidney disease (HCC) PSH Past Surgical History: Procedure Laterality Date CARPAL TUNNEL SURGERY Right 11/1912 [facility] COLONOSCOPY W/ LESION REMOVAL, SNARE 06/01/10 polyp--villous tissue repeat in 1 yr COLONOSCOPY, DIAGNOSTIC (RECTUM) 08/23/11 diverticulosis,repeat colonoscopy in 3 years COLONOSCOPY, DIAGNOSTIC (RECTUM) 08/02/2014 Diverticulosis in the sigmoid colon. no evidence of inflammation. repeat in 3 yrs/COLONOSCOPY FLEXIBLE PROXIMAL DIAGNOSTIC performed by Hanny Graham DO at ENDOSCOPY [facility] EGD, FLEXIBLE, TRANSENDOSCOPIC DILATION <30MM 08/23/11 biopsisies repeat egd in 4 weeks LAP;W/HYSTERECTOMY 1970,s Hysterectomy Complete LAPAROSCOPY; CHOLECYSTECTOMY Cholecystectomy, Laproscopic MISCELLANEOUS ORDER Left 02/25/2013 Left leg bypass, [place]. [place] [facility] [place] Right Dr Page [facility] [place]ONS[place]S, UNDER AGE 12 Tonsillectomy ALL Review of patient's allergies indicates: Allergen Reactions Insulin Glargine Hives Lantus Ivp Dye Hives Novolog [Insulin Aspart] hives Prinivil [Lisinopril] Edema Other Angioedema EXAM telemed exam Alert and oriented NAD, chronically ill No resp distress, spoke in full sentences Off O2 Abdomen is benign, slightly obese, BS +, no m/m Extremities: R BKA L heel ulcer, clean and non cellulitic per report Unsure if bone grossly exposed. Skin free of rashes, petechia or ecchymosis. MICROBIOLOGY All available was reviewed IMAGING All pertinent and available images and reports were reviewed MR availablee on [facility]. Images reviewed. Reported had been faxed to me. A/P: 74 year old vasculopath, has a L heel ulcer which she acquired ~ 15 months during a failed bypass surgery for her RLE which eventually led to an amputation. Following with [facility] since. A recent MRI from demonstrated (per report and images): Small focus of T1 T2 marrow signal c/w OM L calcaneous OM? L heel ulcer Vasculopathy Prior BKA, DM This was a Telephone visit. pt seems well. Wound stable. Per her report it did not seem grossly superinfected. MR can be overly sensitive, would rely on clinical evaluation. Pt to see a specialist [facility] soon. If he thinks that the pt has OM and that the limb is salvageable, then bone debridement followed by antibx would be the appropriate course of action; even superficial debridement would help. If on the other hand the pt is not believed to have OM, conservative management is favored. documented in this encounter Plan of Treatment Health Maintenance Due Date Last Done Comments DIABETES-EYE EXAM 1963 DIABETES-FOOT EXAM 1964 DIABETES-HGBA1C EVERY 6 MONTHS 1964 DTaP,Tdap,and Td Vaccines (1 - Tdap) 1965 BREAST CANCER SCREENING DISCUSSION YEARLY AGES 40-75 1986 Zoster Vaccines (1 of 2) 1996 Dexa Scan 2011 Pneumococcal Vaccine: 65+ Years (1 of 1 - PPSV23) 2011 *DEPRESSION SCREENING,ANNUAL FOR PTS 12 AND OVER 03/24/2016 *URINE PROTEIN ONCE FOR HTN-DIPSTICK ACCEPTABLE 03/24/2016 COLONOSCOPY-EVERY 3 YRS AGES 18-100 08/02/2017 08/02/2014, 08/02/2014, 08/23/2011, Additional history exists Influenza Vaccine (FLU shot) (#1) 2020 MENINGOCOCCAL (MENACTRA/MENVEO) Aged Out No longer eligible based on patient's age to complete this topic documented as of this encounter Implants Not on filedocumented as of this encounter Visit Diagnoses Diagnosis 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
--- OUTSIDE RECORDS SUMMARY | 2023-01-31 23:12 | External Medical Summary ---
Author Name Unknown Address [address] [address] Organization K1F:[address] [place] [address] Laboratory Report Ordering Provider Test Date Status MALIK SHETH 04/24/2019 06:47:00 Final Observation Date Value Abnormality Reference Status BUN 04/24/2019 09:01 18 6-20 Fin al Creatinine 04/24/2019 09:01 1.0 0.5-1.0 Fi nal E Glom Filt Rate 04/24/2019 09:01 56.9 Below low normal >60 Final Performing Location [address] [place] [address]
--- OUTSIDE RECORDS SUMMARY | 2023-01-31 23:12 | External Medical Summary ---
Author Name Unknown Address [address] [place] [address] Organization K1F:[facility] [address] [place] [address] Laboratory Report Ordering Provider Test Date Status MALIK SHETH 05/12/2019 06:32:00 Final Observation Date Value Abnormality Reference Status WBC, Total 05/12/2019 08:38 6.77 4.00-10.80 F inal RBC 05/12/2019 08:38 3.92 3.85-5.15 Fin al Hemoglobin 05/12/2019 08:38 11.6 Below low normal 12.0- 15.3 Final HCT 05/12/2019 08:38 37.8 36.0-45.2 Fin al MCV 05/12/2019 08:38 96.4 81.5-97.5 Fin al MCH 05/12/2019 08:38 29.6 27.0-34.0 Fin al MCHC 05/12/2019 08:38 30.7 Below low normal 32.0-3 6.0 Final RDW 05/12/2019 08:38 15.5 11.5-15.5 Fin al Platelets 05/12/2019 08:38 273 140-400 Fin al MPV 05/12/2019 08:38 11.0 6.6-11.1 Fin al nRBC/100 WBC Bld Auto-Rto 05/12/2019 08:38 0 0 Final Segs 05/12/2019 08:38 64.9 40-75 Fin al Lymphs % 05/12/2019 08:38 24.1 18-42 Fin al Monos 05/12/2019 08:38 7.2 1-11 Fin al Eosinophils 05/12/2019 08:38 2.5 0-6 F inal Basos 05/12/2019 08:38 0.4 0-2 Fin al Immature Granulocyte, Percent 05/12/2019 08:38 0.9 0-2 Final Neutrophils Bld 05/12/2019 08:38 4.39 1.8-7.7 Final Lymphs, absolute 05/12/2019 08:38 1.63 1.0-4. 8 Final Monos, Abs 05/12/2019 08:38 0.49 0.0-1.1 Fi nal Eos, Abs 05/12/2019 08:38 0.17 0.0-0.7 Fin al Basos, Abs 05/12/2019 08:38 0.03 0.0-0.2 Fi nal Immature Granulocytes, Number 05/12/2019 08:38 0.06 0.0-0.2 Final Performing Location [address] [place] [address]
--- OUTSIDE RECORDS SUMMARY | 2023-01-31 23:12 | External Medical Summary ---
Author Name Unknown Address [address] [place] [address] Organization K1F:[facility] [address] [place] [address] Laboratory Report Ordering Provider Test Date Status MALIK SHETH 09/07/2019 06:34:00 Final Observation Date Value Abnormality Reference (Units ) Status WBC, Total 09/07/2019 09:34 6.83 4.00-10.80 (K/uL) Final RBC 09/07/2019 09:34 2.97 Below low normal 3.85-5.15 (M/uL) Final Hemoglobin 09/07/2019 09:34 9.0 Below low normal 12.0-15.3 (g/dL) Final HCT 09/07/2019 09:34 28.0 Below low normal 36.0-45.2 (%) Final MCV 09/07/2019 09:34 94.3 81.5-97.5 (fL) Final MCH 09/07/2019 09:34 30.3 27.0-34.0 (pg) Final MCHC 09/07/2019 09:34 32.1 32.0-36.0 (g/dL) Final RDW 09/07/2019 09:34 13.2 11.5-15.5 (%) Final Platelets 09/07/2019 09:34 284 140-400 (K/uL) Final MPV 09/07/2019 09:34 10.6 6.6-11.1 (fL) Final nRBC/100 WBC Bld Auto-Rto 09/07/2019 09:34 0 0 (/100 WBCs) Final Segs 09/07/2019 09:34 59.2 40-75 (%) Final Lymphs % 09/07/2019 09:34 28.7 18-42 (%) Final Monos 09/07/2019 09:34 7.6 1-11 (%) Final Eosinophils 09/07/2019 09:34 3.5 0-6 (%) Final Basos 09/07/2019 09:34 0.1 0-2 (%) Final Immature Granulocyte, Percent 09/07/2019 09:34 0.9 0-2 (%) Final Neutrophils Bld 09/07/2019 09:34 4.04 1.8-7.7 (K/uL) Final Lymphs, absolute 09/07/2019 09:34 1.96 1.0-4.8 (K/uL) Final Monos, Abs 09/07/2019 09:34 0.52 0.0-1.1 (K/uL) Final Eos, Abs 09/07/2019 09:34 0.24 0.0-0.7 (K/uL) Final Basos, Abs 09/07/2019 09:34 0.01 0.0-0.2 (K/uL) Final Immature Granulocytes, Number 09/07/2019 09:34 0.06 0.0-0.2 (K/uL) Final Performing Location [address] [place] [address]
--- OUTSIDE RECORDS SUMMARY | 2023-01-31 23:12 | External Medical Summary | Summary of Care ---
Author Name Unknown Organization [place] [address] Care Team Providers Care Hatch Tender Name Role Phone Agustín Jarvis MD Primary Care Provider [phone] Reason for Visit * Reason Comments NEW PATIENT B/L EAR TUBES NEEDED - HYPERBERIC CHAMBER Encounter Details Date Type Department Care Team Description 08/04/2018 Office Visit Otolaryngology [facility] [address] [place] [address] Joseph Karimi II, MD [address] [place] [facility] [address] ETD (Eustachian tube dysfunction), bilateral*; At risk for barotrauma due to hyperbaric oxygen therapy; Right asymmetrical SNHL Allergies Active Allergy Reactions Severity Noted Date [...] PO TABS one pill each day 0 Active CLOPIDOGREL BISULFATE 75 MG PO TABS one pill each day 0 Active HUMALOG 100 UNIT/ML SUBQ SOLN sliding scale [...] to breakfast or other meds) 0 Active ciprofloxacin-dex amethasone (CIPRODEX) 0.3-0.1 % otic suspension Instill 4 Drops into both ears 2 times a day for 7 days. For 7 days. 1 Bottle 3 08/04/2018 08/11/2018 Active HYDROCHLOROTHIAZI DE 25 MG PO TABS 1 TABLET EVERY MORNING 0 05/13/2012 08/04/2018 Discontinued LEVOTHYROXINE SODIUM 112 MCG OR TABS one pill each day 0 08/04/2018 Discontinued ZETIA 10 MG Tablet 0 10/19/2016 08/04/2018 Discontinued cephalexin (KEFLEX) 500 MG Capsule Take 1 Cap by mouth 2 times a day. 14 Cap 0 03/28/2017 08/04/2018 Discontinued documented as of this encounter (statuses as of 08/04/2018) Active Problems Problem Noted Date ETD (Eustachian [...] Travel End documented as of this encounter Last Filed Vital Signs Vital Sign Reading Time Taken Blood Pressure 116/58 08/04/2018 12:57 PM EST Pulse 60 08/04/2018 12:57 PM EST Temperature 36.1 C (97 F) 08/04/2018 12: 57 PM EST Respiratory Rate - - Oxygen Saturation - - Inhaled Oxygen Concentration - - Weight 72.1 kg (159 lb) 08/04/2018 12:5 7 PM EST Height 165.1 cm (5' 5") 08/04/2018 12:5 7 PM EST Body Mass Index 26.46 08/04/2018 12:57 PM EST documented in this encounter Progress Notes * Joseph Karimi II, MD - 08/04/2018 1:30 PM EST NEW PATIENT B/L EAR TUBES NEEDED - HYPERBERIC CHAMBER 73 YOF comes to the office needing b/l ear tubes per Dr. Ramos, wound clinic. She is currently being treated for right foot ulcer due to diabetes and poor circulation. She does not have any toes on that foot. Her treatments started last week, with the 4th treatment being today. Her ears started popping and cracking. She had pain with the right ear. No issues to this with her ears in the past. No discharge from her ears. Her hearing is said to not be good since the hyperberic treatments started. No other voiced c/o. ++++++++ IMPORTANT TO NOTE THAT ALTHOUGH SHE HAD PAIN IN THE RIGHT EAR WITH HYPERBARIC OXYGEN TREATMENT TODAY, SHE HAD PAIN OVER THE WEEKEND IN THE LEFT EAR. Problem List Patient Active Problem List Diagnosis Code Hypothyroidism E03.9 Dyslipidemia, goal to be determined E78.5 DM type 2, not at goal (HCC) E11.9 HYPERTENSION NOS I10 S/P carotid endarterectomy Z98.890 Past Medical History: Diagnosis Date Asthma Benign [...] Left 02/25/2013 Left leg bypass, Dr. Lopez [facility] REMOVAL OF KIDNEY Right Dr Page [facility] REMOVAL OF TONSILS, UNDER AGE 13 Tonsillectomy Medications Current Outpatient Medications Medication Sig Dispense Refill levothyroxine (LEVOXYL) 175 MCG Tablet Take 175 mcg by mouth daily first thing in the morning. (at least 30 min prior to breakfast or other meds) carvedilol (COREG) 25 MG Tablet 1/2 tab in the am and 1 tab in the pm omeprazole (PRILOSEC) 40 MG CPDR Losartan Potassium 100 MG Tablet Take 1 Tab by mouth daily. ATORVASTATIN CALCIUM 80 MG PO TABS one pill each day CLOPIDOGREL BISULFATE 75 MG PO TABS one pill each day HUMALOG 100 UNIT/ML SUBQ SOLN sliding scale coverage NIFEDIPINE ER 30 MG PO TB24 one pill each day SPIRONOLACTONE 25 MG PO TABS one pill twice a day VITAMIN D-3 1000 UNITS PO CAPS one pill once a day LEVEMIR 100 UNIT/ML SUBQ SOLN 36 units at night ADVAIR DISKUS 500-50 MCG/DOSE IN MISC as needed 1 0 ALBUTEROL 90 MCG/ACT IN AERS 2 puffs every 4 hrs as needed 1 MDI 5 Allergies Review of patient's allergies indicates: Allergen Reactions Insulin Glargine Hives Lantus Ivp Dye Hives Novolog [Insulin Aspart] hives Prinivil [Lisinopril] Edema Other Angioedema Family History Family History Problem Relation Age of Onset Other (Dermatomyositis) Mother No Known Problems Father Social History Social History Tobacco Use Smoking status: Never Smoker Smokeless tobacco: Never Used Substance Use Topics Alcohol use: Not on file Occupational History Work: RETIRED Review of Systems was obtained via the THE [facility] ENT INTAKE FORM. THIS WAS REVIEWED BY ME WITH THE PATIENT AND WILL BE SCANNED INTO THE PATIENT'S CHART. Areas covered were pulmonary","hepatic","renal"," digestive","hematologic","epileptic","syncopal","musculo-skeletal","mental health","integumentary","hypertensive","lipid","arthritic","diabetic", "thyroid", and "neurologic" disorders. Physical Examination: BP 116/58 | Pulse 60 | Temp (Src) 97 (Tympanic) | Ht 5' 5" (1.651m) | Wt 159 lbs (72.122kg) | BMI 26.46 kg/m | BSA 1.82 m General: This is a healthy appearing female who appears her stated age. The patient is alert and behaving appropriate for age. Face: The face was inspected and no cutaneous masses or lesions were visualized. Facial movement was symmetric without weakness. Eyes: Pupils were equal. Ears: Examination of the ears revealed that the auricles were normally formed with no lesions. I REMOVED HARD CERUMEN FROM THE RIGHT EAC USING MICROSURGICAL TECHNIQUE INVOLVING USE OF A RIGHT ANGLED PICK, SUCTION, AND ALLIGATOR FORCEPS. The right tympanic membrane was slightly thickened and injected. There was no fluid in the middle ear space. The left external auditory canal, tympanic membrane, and middle ear space were all within normal limits. Nose: Examination of the nose revealed no crusting or drainage. The nasal septum was non-obstructing. Oral Cavity: Examination of the oral cavity revealed no mass lesions nor infection. The palate was noted to be intact without evidence of clefting. The tongue exhibited normal mobility. Mucosa was moist without lesion. The lips were free of lesion. Gums were free of inflammation. she had teeth in good repair. Oropharynx: The oral pharynx was free of mass lesion or mucosal abnormality. The palate was noted to be without lesion. The uvula was normal appearing with no deviation or lesions. The tonsils were unremarkable. Neck: Visualization and palpation of the neck revealed no mass lesions, no thyromegaly or thyroid masses. There were no skin lesions. The cervical musculature was normal to palpation. There were no palpable cervical lymph nodes. +++++++ SHE HAD BILATERAL CAROTID ENDARTERECTOMY SCARS. Procedure: (64459) Due to limitations of a mirror exam and need for comprehensive evaluation of the upper airway, fiberoptic examination of the upper airway was performed. The nose was first topically decongested with topical oxymetazoline 0.05% spray and topically anesthetized with topical Lidocaine 4% spray. The flexible fiberoptic scope was passed through both nostrils. The septum was midline without perforation or ulcerations. Nasal mucosa was found to be WNL. Turbinates were not hypertrophied. Middle meatus was without polyps, masses, or pus. Nasopharynx was visualized and was without masses, polyps, or lesions. Tongue base was WNL. Vocal cord mobility and appearance was normal without paralysis or paresis. There was no significant edema or erythema of the larynx. Hypopharyngeal exam showed that there was no pooling of secretions in the hypopharynx and no mass effect. Audiogram showed slight asymmetry in pure tones with worse hearing in the right ear. However, her discrimination was 96% in both ears at 55 dB. Tympanometry was Type "C" for the right ear and Type "A" for the left ear. DESCRIPTION OF OPERATION: Bilateral Myringotomy with tube placement ([id number]). A full informed consent, including the indications, risks, benefits, and alternatives was provided in a relaxed office setting. There was an opportunity for questions and answers. The patient and I both signed the consent form with my nurse as a witness. GIVEN THE ONGOING NEED FOR HYPERBARIC OXYGEN TREATMENTS AND DISCOMFORT IN THE LEFT EAR OVER THE WEEKEND, THE PATIENT AND I AGREED FOR BILATERAL TUBE PLACEMENT. The operating microscope was introduced along with a metal speculum to both ears. Phenol was applied to the posterior-inferior quadrant of the TM for both ears using the phenol applicator. Then, a myringotomy knife was used to make a radial incision in the posterior- inferior quadrant forboth ears. A collar button, fluoroplastic pressure equalization tube was placed using an alligator without difficulty on the first attempt, and 4 Ciprodex drops were applied. The tragus was "pumped" for 20 seconds to make sure the drops made it to the middle ear space, and the patient's head remained turned to the opposite side for two minutes after that. Cotton was placed in the EAC meatus. The patient tolerated the procedure well. Patient was directed to refrain from eating or drinking for 30-45 minutes due to anesthesia of the pharynx and possible interference with swallowing including the possibility of aspiration. Given all of the above, the assessment and plan from today's visit is as follows. (H69.83) ETD (Eustachian tube dysfunction), bilateral (primary encounter diagnosis) Plan: NASAL ENDOSCOPY, DIAGNOSTIC, CREATE EARDRUM OPENING,LOCAL ANESTH, AUDIOLOGY LAB Bilateral myringotomy with tube placement done uneventfully today. She was encouraged to follow thestandard postprocedure protocol. Arrangements were made for her to see Herb Kelly back in 1 month. (Z91.89) At risk for barotrauma due to hyperbaric oxygen therapy Plan: NASAL ENDOSCOPY, DIAGNOSTIC, CREATE EARDRUM OPENING,LOCAL ANESTH, AUDIOLOGY LAB PLEASE SEE DIRECTLY ABOVE. (H90.41) Right asymmetrical SNHL Plan: AUDIOLOGY LAB ARRANGEMENTS WILL BE MADE FOR AN INTERVAL AUDIOGRAM IN ONE YEAR. documented in this encounter Nursing Notes * Beata Boyd LPN - 08/04/2018 1:03 PM EST Chief Complaint Patient presents with NEW PATIENT B/L EAR TUBES NEEDED - HYPERBERIC CHAMBER 73 YOF comes to the office needing b/l ear tubes per Dr. Ramos, wound clinic. She is currently being treated for right foot ulcer due to diabetes and poor circulation. She does not have any toes on that foot. Her treatments started last week, with the 4th treatment being today. Her ears started popping and cracking. She had pain with the right ear. No issues to this with her ears in the past. No discharge from her ears. Her hearing is said to not be good since the hyperberic treatments started. No other voiced c/o. documented in this encounter Plan of Treatment Upcoming Encounters Date Type Specialty Care Team Description 09/02/2018 Office Visit Otolaryngology Raissa Esquivel PA-C [address] [facility] [address] [place] [address] [phone] Health Maintenance Due Date Last Done Comments [...] as of this encounter Visit Diagnoses Diagnosis ETD (Eustachian tube dysfunction), bilateral- Primary At risk for barotrauma due to hyperbaric oxygen therapy Right asymmetrical SNHL Sensorineural hearing loss, asymmetrical documented in this encounter Advance Directives Patient has advance care planning documents on file. For more information, please contact: [place]ista [phone]
--- OUTSIDE RECORDS SUMMARY | 2023-01-31 23:12 | External Medical Summary ---
Author Name Unknown Address [address] [place] [address] [place] [address] Organization K1F:[address] [place] [address] Laboratory Report Ordering Provider Test Date Status MALIK SHETH 09/07/2019 06:34:00 Final Observation Date Value Abnormality Reference (Units ) Status TSH 09/07/2019 09:54 0.48 0.27-4.2 (uIU /mL) Final Performing Location [address] [place] [address]
--- OUTSIDE RECORDS SUMMARY | 2023-01-31 23:12 | External Medical Summary ---
Author Name Unknown Address [address] [place] [address] Organization K1F:[facility] [address] [place] [address] Laboratory Report Ordering Provider Test Date Status MALIK SHETH 04/24/2019 06:47:00 Final Observation Date Value Abnormality Reference Status WBC, Total 04/24/2019 08:43 8.16 4.00-10.80 F inal RBC 04/24/2019 08:43 3.33 Below low normal 3.85-5 .15 Final Hemoglobin 04/24/2019 08:43 9.8 Below low normal 12.0- 15.3 Final HCT 04/24/2019 08:43 31.3 Below low normal 36.0-4 5.2 Final MCV 04/24/2019 08:43 94.0 81.5-97.5 Fin al MCH 04/24/2019 08:43 29.4 27.0-34.0 Fin al MCHC 04/24/2019 08:43 31.3 Below low normal 32.0-3 6.0 Final RDW 04/24/2019 08:43 15.3 11.5-15.5 Fin al Platelets 04/24/2019 08:43 219 140-400 Fin al MPV 04/24/2019 08:43 11.1 6.6-11.1 Fin al nRBC/100 WBC Bld Auto-Rto 04/24/2019 08:43 0 0 Final Segs 04/24/2019 08:43 72.7 40-75 Fin al Lymphs % 04/24/2019 08:43 15.6 Below low normal 18-42 Final Monos 04/24/2019 08:43 8.5 1-11 Fin al Eosinophils 04/24/2019 08:43 2.3 0-6 F inal Basos 04/24/2019 08:43 0.4 0-2 Fin al Immature Granulocyte, Percent 04/24/2019 08:43 0.5 0-2 Final Neutrophils Bld 04/24/2019 08:43 5.94 1.8-7.7 Final Lymphs, absolute 04/24/2019 08:43 1.27 1.0-4. 8 Final Monos, Abs 04/24/2019 08:43 0.69 0.0-1.1 Fi nal Eos, Abs 04/24/2019 08:43 0.19 0.0-0.7 Fin al Basos, Abs 04/24/2019 08:43 0.03 Below low normal 0.1-0 .2 Final Immature Granulocytes, Number 04/24/2019 08:43 0.04 0.0-0.2 Final Performing Location [address] [place] [address]
--- OUTSIDE RECORDS SUMMARY | 2023-01-31 23:12 | External Medical Summary ---
Author Name Unknown Address [address] [place] [address] [place] [address] Organization K1F:[address] [place] [address] Laboratory Report Ordering Provider Test Date Status MALIK SHETH 04/24/2019 06:47:00 Final Observation Date Value Abnormality Reference Status TSH 04/24/2019 09:07 0.33 0.27-4.2 Fin al Performing Location [address] [place] [address]
--- OUTSIDE RECORDS SUMMARY | 2023-01-31 23:12 | External Medical Summary ---
Author Name UNSPECIFIED Organization [facility] History of Encounters Reason for Assessment: Discharge from [facility] Inpatient Facility where the patient been admitted: No inpatient facility admission Discharge Disposition: Patient remained in the community (without formal assistive services) Functional Assessment Bowel Incontinence Frequency: Very rarel y or never has bowel incontinence Cognitive and Behavioral and Psychiatric Symptoms: None Current Ability: Bathing: Unable to use the shower or tub, but able to bathe self independently with or without the use of devices at the sink, in chair, or on commode. Current Ability: Ambulation: With the us e of a one-handed device (e.g. cane, single crutch, diana-walker), able to independently walk on even and uneven surfaces and negotiate stairs with or without railings. Current: Management Of Oral Medications: Able to independently take the correct oral medication(s) and proper dosage(s) at the correct time Problems Surgical wound: Yes, patient has at least one (observable) surgical wound
--- OUTSIDE RECORDS SUMMARY | 2023-01-31 23:12 | External Medical Summary ---
Author Name Unknown Address [address] [place] [address] Organization K1F:[facility] [address] [place] [address] Laboratory Report Ordering Provider Test Date Status MALIK SHETH 04/28/2019 07:05:00 Final Observation Date Value Abnormality Reference Status WBC, Total 04/28/2019 09:19 8.38 4.00-10.80 F inal RBC 04/28/2019 09:19 3.13 Below low normal 3.85-5 .15 Final Hemoglobin 04/28/2019 09:19 9.2 Below low normal 12.0- 15.3 Final HCT 04/28/2019 09:19 29.8 Below low normal 36.0-4 5.2 Final MCV 04/28/2019 09:19 95.2 81.5-97.5 Fin al MCH 04/28/2019 09:19 29.4 27.0-34.0 Fin al MCHC 04/28/2019 09:19 30.9 Below low normal 32.0-3 6.0 Final RDW 04/28/2019 09:19 15.1 11.5-15.5 Fin al Platelets 04/28/2019 09:19 286 140-400 Fin al MPV 04/28/2019 09:19 10.7 6.6-11.1 Fin al nRBC/100 WBC Bld Auto-Rto 04/28/2019 09:19 0 0 Final Segs 04/28/2019 09:19 69.4 40-75 Fin al Lymphs % 04/28/2019 09:19 18.5 18-42 Fin al Monos 04/28/2019 09:19 7.4 1-11 Fin al Eosinophils 04/28/2019 09:19 3.5 0-6 F inal Basos 04/28/2019 09:19 0.2 0-2 Fin al Immature Granulocyte, Percent 04/28/2019 09:19 1.0 0-2 Final Neutrophils Bld 04/28/2019 09:19 5.82 1.8-7.7 Final Lymphs, absolute 04/28/2019 09:19 1.55 1.0-4. 8 Final Monos, Abs 04/28/2019 09:19 0.62 0.0-1.1 Fi nal Eos, Abs 04/28/2019 09:19 0.29 0.0-0.7 Fin al Basos, Abs 04/28/2019 09:19 0.02 0.0-0.2 Fi nal Immature Granulocytes, Number 04/28/2019 09:19 0.08 0.0-0.2 Final Performing Location [address] [place] [address]
--- OUTSIDE RECORDS SUMMARY | 2023-01-31 23:12 | External Medical Summary | Summary of Care ---
Author Name Unknown Organization [place] [address] Care Team Providers Care Sap Technical Developer Name Role Phone Agustín Jarvis MD Primary Care Provider [phone] Encounter Details Date Type Department Care Team Description 06/23/2020 Orders Only Infectious Disease, [place] [address] [place] [address] Morteza Brewster MD [address], [place] [id number] Allergies Active Allergy Reactions Severity Noted Date Comments Insulin Glargine Hives 06/01/2010 Lantus Ivp Dye Hives 08/05/2006 Insulin Aspart 08/05/2006 hives Lisinopril Edema Other 06/01/2010 Angioedema documented as of this encounter (statuses as of 07/06/2020) Medications Medication Sig Dispensed Refills Start Date [...] as of this encounter (statuses as of 07/06/2020) Active Problems Problem Noted Date ETD (Eustachian tube dysfunction), bilat eral 08/04/2018 At risk for barotrauma due to hyperbaric oxygen therapy 08/04/2018 Right asymmetrical SNHL 08/04/2018 Hypothyroidism 08/05/2006 Dyslipidemia, goal to be determined 10/2006 DM type 2, not at goal 08/05/2006 HYPERTENSION NOS 08/05/2006 S/P carotid endarterectomy 08/05/2006 documented as of this encounter (statuses as of 07/06/2020) Social History Tobacco Use Types Packs/Day Years Used Date Never Smoker Smokeless Tobacco: Never Used Alcohol Use Drinks/Week oz/Week Comments Not Asked Sex Assigned at Date Recorded Not on file documented as of this encounter Plan of Treatment Upcoming Encounters Date Type Specialty Care Team Description 07/19/2020 Office Visit Infectious Disease Morteza Brewster MD [address] [place] [address] Health Maintenance Due Date Last Done Comments [...] Procedure Name Priority Date/Time Associated Diagnosis Comments RADIOLOGY EXAM - MRI (IMAGES ONLY, NO REPORT) Routine 06/23/2020 11:10 AM EST documented in this encounter Results * RADIOLOGY EXAM - MRI (IMAGES ONLY, NO REPORT) (06/23/2020 11:10 AM EST) Specimen Narrative Performed At This is an imaging study not interpreted or resulted by a [employer] or [employer] contracted radiologist. 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
--- OUTSIDE RECORDS SUMMARY | 2023-01-31 23:12 | External Medical Summary ---
Author Name UNSPECIFIED Organization [facility] History of Encounters Reason for Assessment: Recertification ( follow-up) reassessment Functional Assessment Frequency Of Pain Interferin g With Patient's Activity Or Movement: Less often than daily Bowel Incontinence Frequency: Very rarel y or never has bowel incontinence Current Ability: Bathing: Unable to use the shower or tub, but able to bathe self independently with or without the use of devices at the sink, in chair, or on commode. Current Ability: Ambulation: With the us e of a one-handed device (e.g. cane, single crutch, diana-walker), able to independently walk on even and uneven surfaces and negotiate stairs with or without railings. 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 , Acquired absence of other right toe(s) Home Care Diagnosis 2: ICD Code: E11.51, Type 2 diabetes w diabetic peripheral angiopath w/o gangrene Home Care Diagnosis 2: Severity Ratin Home Care Diagnosis 3: ICD Code: E11.22, Type 2 diabetes mellitus w diabetic chronic kidney disease Home Care Diagnosis 3: Severity Ratin Home Care Diagnosis 4: ICD Code: I12.9, Hypertensive chronic kidney disease w stg 1-4/unsp chr kdny Home Care Diagnosis 4: Severity Ratin Home Care Diagnosis 5: ICD Code: N18.3, Chronic kidney disease, stage 3 (moderate) Home Care Diagnosis 5: Severity Ratin Surgical wound: Yes, patient has at least one (observable) surgical wound
--- OUTSIDE RECORDS SUMMARY | 2023-01-31 23:12 | External Medical Summary ---
Author Name Unknown Address [address] [facility] [place] [address] Organization K1F:[address] [place] [address] Laboratory Report Ordering Provider Test Date Status MALIK SHETH 09/07/2019 06:34:00 Final Observation Date Value Abnormality Reference (Units ) Status BUN 09/07/2019 09:46 23 Above high normal 6-20 (mg/dL) Final Creatinine 09/07/2019 09:46 1.1 Above high normal 0.5- 1.0 (mg/dL) Final E Glom Filt Rate 09/07/2019 09:46 52.6 Below low normal >60 Final Performing Location [address] [place] [address]
--- OUTSIDE RECORDS SUMMARY | 2023-01-31 23:12 | External Medical Summary | Summary of Care ---
Author Name Unknown Organization [place] [address] Care Team Providers Care Manager Product Marketing Name Role Phone Agustín Jarvis MD Primary Care Provider [phone] Encounter Details Date Type Department Care Team Description 06/14/2020 Orders Only Infectious Disease, [place] [address] [place] [address] Morteza Brewster MD [address], [place] [id number] Allergies Active Allergy Reactions Severity Noted Date [...] Infectious Disease Morteza Brewster MD [address] [place] [address] Health Maintenance Due Date Last [...] Date/Time Associated Diagnosis Comments RADIOLOGY EXAM - GENERAL RAD (IMAGES ONLY,NO REPORT) Routine 06/14/2020 12:30 PM EST documented in this encounter Results * RADIOLOGY EXAM - GENERAL RAD (IMAGES ONLY,NO REPORT) (06/14/2020 12:30 PM EST) Specimen Narrative Performed At This is an imaging study not interpreted or resulted by a [place] or [email or web address] contracted radiologist. documented in this encounter Advance Directives Documents on File Type Date Recorded Patient Sales Technician Home Theater Expl anation Advanced Directive service a ronn default Advanced Directive Advanced Directive Advanced Directive Advanced Directive Advanced Directive Advanced Directive Advanced Directive Advanced Directive Advanced Directive Advanced Directive Advanced Directive Advanced Directive
--- OUTSIDE RECORDS SUMMARY | 2023-01-31 23:12 | External Medical Summary ---
Author Name UNSPECIFIED Organization [facility] History of Encounters Reason for Assessment: Recertification ( follow-up) reassessment Functional Assessment Frequency Of Pain Interferin g With Patient's Activity Or Movement: Daily, but not constantly Urinary Incontinence or Urin estrella Catheter Present: Patient is incontinent Bowel Incontinence Frequency: Very rarel y or [...]
--- OUTSIDE RECORDS SUMMARY | 2023-01-31 23:12 | External Medical Summary | Summary of Care ---
Author Name Unknown Organization [place] [address] Care Team Providers Care Family And Consumer Sciences Professor Name Role Phone Agustín Jarvis MD Primary Care Provider [phone] Reason for Visit * Reason Comments Appointment Encounter Details Date Type Department Care Team Description 08/04/2018 Telephone Otolaryngology [facility] [address] [place] [address] Joseph Karimi II, MD [address] [facility] [place] [address] Appointment Allergies Active Allergy [...] encounter Miscellaneous Notes * Telephone Encounter - Roro Zabala OSA [...] Care Team Description 08/04/2018 Office Visit Otolaryngology Joseph Karimi II, MD [address] [place] [address] [phone] Health Maintenance Due Date Last Done Comments [...] For more information, please contact: [place] [address]
--- OUTSIDE RECORDS SUMMARY | 2023-01-31 23:12 | External Medical Summary ---
Author Name Unknown Address [address] [place] [address] Organization K1F:[address] [place] [address] Laboratory Report Ordering Provider Test Date Status MALIK SHETH 05/12/2019 06:32:00 Final Observation Date Value Abnormality Reference Status BUN 05/12/2019 08:38 22 Above high normal 6-20 Final Creatinine 05/12/2019 08:38 0.9 0.5-1.0 Fi nal E Glom Filt Rate 05/12/2019 08:38 >60.0 >60 Final Performing Location [address] [place] [address]
--- OUTSIDE RECORDS SUMMARY | 2023-01-31 23:12 | External Medical Summary ---
Author Name Unknown Address [address] [place] [address] Organization K1F:[address] [place] [address] Laboratory Report Ordering Provider Test Date Status MALIK SHETH 05/05/2019 06:35:00 Final Observation Date Value Abnormality Reference Status BUN 05/05/2019 09:18 21 Above high normal 6-20 Final Creatinine 05/05/2019 09:18 0.9 0.5-1.0 Fi nal E Glom Filt Rate 05/05/2019 09:18 >60.0 >60 Final Performing Location [address] [place] [address]
--- OUTSIDE RECORDS SUMMARY | 2023-01-31 23:12 | External Medical Summary ---
Author Name Unknown Address [address] [place] [address] Organization K1F:[address] [place] [address] Laboratory Report Ordering Provider Test Date Status MALIK SHETH 04/28/2019 07:05:00 Final Observation Date Value Abnormality Reference Status BUN 04/28/2019 09:54 18 6-20 Fin al Creatinine 04/28/2019 09:54 0.9 0.5-1.0 Fi nal E Glom Filt Rate 04/28/2019 09:54 >60.0 >60 Final Performing Location [address] [place] [address]
--- OUTSIDE RECORDS SUMMARY | 2023-01-31 23:12 | External Medical Summary | Continuity of Care Document ---
Author Name Unknown Organization [place] [id number] Address [address] [place] [id number] Care Team Providers Care Sas Architect Name Role Phone Agustín Jarvis Primary Care Physician [phone] Encounter [facility] [id number] Date(s): 07/11/20 - 07/11/20 [facility] [address] [facility] [address] [facility] Medicine [address] [place] [phone] Encounter Diagnosis Peripheral artery disease(Discharge Diagnosis) - 07/11/20 Diabetic foot ulcer(Discharge Diagnosis) - 07/11/20 Type II diabetes mellitus(Discharge Diagnosis) - 07/11/20 Discharge Disposition: Home or Self Care Attending Physician: MD Dean Paul S Referring Physician: DO Howard Christine L Allergies, Adverse Reactions, Alerts Substance Reaction Severity Status rony brito Active IVP dye hives Active CHECO Inhibitors Swelling Hives Active Assessment and Plan Extracted from: Title:Office Visit Note Author:MD Dianne, Pa ul S Date:07/11/20 1.Peripheral artery diseas e Its not clear whether or not she has osteomyelitis. This is been a difficult wound to heal. I would recommend she [facility] and treatmentparticularly in light of her contralateralBKA. Continue treatments in wound care clinic. She will see me back as needed. 2.Diabetic foot ulcer 3.Type II diabetes mellitus Medications acetaminophen Start: 04/07/20 10:46:00 EST, 500 [...] Daily, Disp# 90 tab, Refills: 2, Pharmacy: [facility] Start Date: 11/04/12 Status: Ordered spironolactone 25 mg oral tablet Start: 06/12/12 14:40:00, 1 tab, PO, bid, Disp# 60 tab, Refills: 3, Pharmacy: [id number] Start Date: 06/12/12 Status: Ordered Vitamin D3 1000 intl units oral tablet Start: 01/29/14 14:20:00, 1 tab, PO, Daily Start Date: 01/29/14 Status: Ordered Mental Status 07/11/20 Barriers to Learning one year None evide [...] mellitus(Confirmed) Active Vaginitis(Confirmed) Active Weight disorder(Confirmed) Active Diagnosis Diagnosis Type Effective Dates Health Status Clinical Service Informant Type II diabetes mellitus Discharge Diagnosis 07/11/20 Peripheral artery disease Discharge Diagnosis 07/11/20 Diabetic foot ulcer Discharge Diagnosis 07/11/20 Procedures Procedure Date Related Diagnosis Body Site Status LLE angiogram without intervention 03/25/20 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 09/02/19 Completed lle angio w station captain l peroneal a nd stent l common iliac art 07/15/19 Completed Abdominal aortogram w/ VENUE ATTENDANT/s tent of paulo PONCHO 07/06/19 Completed RLE BIRD TRAPPER - Endarterectomy of the common femoral artery wi/ bovine patch and fem-ant tib in situ bypass 04/17/19 Compl eted RLE Angiogram without intervention 04/03/19 Completed Revision RLE transmetatarsal amputation 11/11/18 Completed RLE angiogram w/ VENUE ATTENDANT peronea l and popliteal artery 10/10/18 Completed Amputation of left 1st toe a nd metatarsal 02/11/18 Completed RLE angiogram w/ VENUE ATTENDANT peroneal 11/22/17 Completed RLE angiogram w/ VENUE ATTENDANT peronea l, TP trunk and pop 09/16/17 Completed Amputation of Right 3rd toe 07/12/17 Completed RLE Surgical debridement of foot wound, transmetatarsal amp 4th toe, excision 3rd metatartsal and prox phalnx 06/19/17 Completed RLE angiogram w/ VENUE ATTENDANT/stent p opliteal artery, VENUE ATTENDANT peroneal 06/14/17 Completed RLE 5th toe amputation 04/30/17 Co mpleted RLE angiogram with intervention 02/15/17 Completed RLE Mechanical Atherectomy a nd VENUE ATTENDANT of popliteal, thrombolysis/TPA and recheck 02/15/17 Completed Nephrectomy 1 04/2013 Completed Vascular surgery 02/25/13 Complete d Popliteal artery 2 02/2013 Comple prisca Plantar wart 3 01/2013 Completed Planters Warts Removed From [facility] 2012 Completed Cardiac catheterization 11/21/11 C [...]
--- OUTSIDE RECORDS SUMMARY | 2023-01-31 23:12 | External Medical Summary | Summary of Care ---
Author Name Unknown Organization [place] [address] Care Team Providers Care Belly Dump Driver Name Role Phone Agustín Jarvis MD Primary Care Provider [phone] Reason for Visit * Reason Comments Post-Op tubes placed 08/04/18 Encounter Details Date Type Department Care Team Description 09/02/2018 Office Visit OTOLARYNGOLOGY [facility] [address] [id number] Raissa Esquivel PA-C [address] [place] [facility] [place] [address] Follow-up examination following ear tube placement* Allergies Active Allergy Reactions Severity Noted Date Comments Insulin Glargine Hives 06/01/2010 Lantus Ivp Dye Hives 08/05/2006 Insulin Aspart 08/05/2006 hives Lisinopril Edema Other 06/01/2010 Angioedema documented as of this encounter (statuses as of 09/02/2018) Medications Medication Sig Dispensed Refills Start Date [...] as of this encounter (statuses as of 09/02/2018) Active Problems Problem Noted Date ETD (Eustachian tube dysfunction), bilat eral 08/04/2018 At risk for barotrauma due to hyperbaric oxygen therapy 08/04/2018 Right asymmetrical SNHL 08/04/2018 Hypothyroidism 08/05/2006 Dyslipidemia, goal to be determined 10/2006 DM type 2, not at goal 08/05/2006 HYPERTENSION NOS 08/05/2006 S/P carotid endarterectomy 08/05/2006 documented as of this encounter (statuses as of 09/02/2018) Social History Tobacco Use Types Packs/Day Years Used Date Never Smoker Smokeless Tobacco: Never Used Sex Assigned at Date Recorded Not on file Job Start Date Occupation Industry Not on file Not on file Not on file Travel History Travel Start Travel End documented as of this encounter Last Filed Vital Signs Vital Sign Reading Time Taken Blood Pressure - - Pulse - - Temperature 36.2 C (97.2 F) 09/02/2018 2 :39 PM EDT Respiratory Rate - - Oxygen Saturation - - Inhaled Oxygen Concentration - - Weight 71.9 kg (158 lb 8 oz) 09/02/2018 2:39 PM EDT Height 165.1 cm (5' 5") 09/02/2018 2:39 PM EDT Body Mass Index 26.38 09/02/2018 2:39 PM EDT documented in this encounter Progress Notes * Raissa Esquivel PA-C - 09/02/2018 3:11 PM EDT History of Present Illness This 73 year old year old female is seen today for one month follow up of ear tube placement by Dr.Henry Karimi on 08/05/18. The patient reported that she has been feeling much better since tube placement. The patient denieddecrease in hearing, otorrhea, otalgia, and recent infection. The patient has been keeping water out of the ears as directed. Medical History Patient Active Problem List Diagnosis Code Hypothyroidism E03.9 Dyslipidemia, goal to be determined E78.5 DM type 2, not at goal (HCC) E11.9 HYPERTENSION NOS I10 S/P carotid endarterectomy Z98.890 ETD (Eustachian tube dysfunction), bilateral H69.83 At risk for barotrauma due to hyperbaric oxygen therapy Z91.89 Right asymmetrical SNHL H90.41 Past Medical History: Diagnosis Date Asthma Benign [...] performed by Hanny Graham DO at [facility] EGD, FLEXIBLE, TRANSENDOSCOPIC DILATION <30MM 08/23/11 biopsisies repeat egd in 4 weeks LAP;W/HYSTERECTOMY 1969,s Hysterectomy Complete LAPAROSCOPY; CHOLECYSTECTOMY Cholecystectomy, Laproscopic MISCELLANEOUS ORDER Left 02/25/2013 Left leg bypass, Dr. Lopez [facility] [place] [place] REMOVAL OF KIDNEY Right Dr [facility] REMOVAL OF TONSILS, UNDER AGE 13 Tonsillectomy Family History Problem Relation Age of Onset Other (Dermatomyositis) Mother No Known Problems Father Social History Tobacco Use Smoking status: Never Smoker Smokeless tobacco: Never Used Substance Use Topics Alcohol use: Not on file Medications Current Outpatient Medications Medication Sig Dispense Refill ofloxacin (OCUFLOX) 0.3 % ophthalmic solution Place 5 drops in the ears twice a day for 5 days when drainage is noted. These are eye drops but may be used in the ears. 5 mL 5 levothyroxine (LEVOXYL) 175 MCG Tablet Take 175 [...] Aspart] hives Prinivil [Lisinopril] Edema Other Angioedema Review of Systems Negative for constitutional, heart, lung, liver, kidney, digestive, hematologic, neurologic, rheumatologic, or endocrine complaints except as per history of present illness and past medical history Physical Exam Temp 97.2 | Ht 5' 5" (1.651m) | Wt 158 lbs 8 oz (71.895kg) | BMI 26.38 kg/m | BSA 1.82 m General: This is a healthy appearing female who appears her stated age. The patient is alert and appropriately verbally conversant without hoarseness. Ears: Examination of the ears revealed that the auricles were normally formed with no lesions. The right external auditory canal was WNL. The right TM was WNL with tube in appropriate position and patent. The right middle ear space was WNL. The left external auditory canal was WNL. The left TM was WNL with tube in appropriate position andpatent. The left middle ear space was WNL Assessment and Plan Encounter Diagnoses Name Primary? Follow-up examination following ear tube placement Yes Plan:Audio was unavailable and was deferred to her next visit. The patient should continue to keep water out of the ears by using cotton with vaseline or ear plugs when swimming or bathing. she was directed to begin using the ofloxacin drops if she notices any drainage from the ears and then to call the office. she will follow up in 6 months for ear tube check. Raissa Esquivel PA-C 09/02/2018 3:13 PM The patient is being seen in follow up for the treatment of Z45.89 Follow-up examination following ear tube placement (primary encounter diagnosis) incident to the plan of care established by Dr. Joseph Karimi II. Type of Supervision: Direct documented in this encounter Nursing Notes * Julee Escalante LPN - 09/02/2018 2:36 PM EDT Chief Complaint Patient presents with Post-Op tubes placed 08/04/18 Trista Almaraz is a 73 year old female who presents for post-op#1 for procedure below performed on 08/04/18 at [facility] ENT office [place] DESCRIPTION OF OPERATION: Bilateral Myringotomy with tube placement (12814-40). Patient states has had no ear infections since last visit. Denies ear pain, fullness bilaterally. Denies ear drainage bilaterally. documented in this encounter Plan of Treatment Upcoming Encounters Date Type Specialty Care Team Description 03/04/2019 Office Visit Otolaryngology Raissa Esquivel PA-C [address] [place] [address] [place] [address] [phone] Health Maintenance Due Date Last Done Comments [...] as of this encounter Visit Diagnoses Diagnosis Follow-up examination following ear tube placement- Primary Follow-up examination, following other surgery documented in this encounter Advance Directives Patient has advance care planning documents on file. For more information, please contact: [place] [id number]
--- OUTSIDE RECORDS SUMMARY | 2023-01-31 23:12 | External Medical Summary | Continuity of Care Document ---
Author Name Unknown Organization [place] [address] [address] [facility] [address] [place] [id number] Care Team Providers Care House Moving Supervisor Name Role Phone Agustín Jarvis Primary Care Physician [phone] Encounter [facility] FINNBR [id number] Date(s): 07/28/20 - 07/28/20 [facility] [address] [place] [facility] [address] [facility], [facility] [address], [address] [place] [address] [phone] Encounter Diagnosis Below knee amputation(Discharge Diagnosis) - 07/28/20 Discharge Disposition: Home or Self Care Attending Physician: MD Deja, Bunny Yusuf Referring Physician: MD Dianne, Gustavo Messer Allergies, Adverse Reactions, Alerts Substance Reaction Severity Status rony juniorine elidaradha Active IVP dye hives Active CHECO Inhibitors [...] Daily, Disp# 90 tab, Refills: 2, Pharmacy: [facility] Start Date: 11/04/12 Status: Ordered spironolactone 25 mg oral tablet Start: 06/12/12 14:40:00, 1 tab, PO, bid, Disp# 60 tab, Refills: 3, [id number] Start Date: 06/12/12 Status: Ordered Vitamin D3 1000 intl units oral tablet Start: 01/29/14 14:20:00, 1 tab, PO, Daily Start Date: 01/29/14 Status: Ordered Mental Status 07/28/20 Barriers to Learning one year None evide [...] Effective Dates Health Status Clinical Service Informant Pain in left foot 07/28/20 Non-Specifie d Below knee amputation Discharge Diagnosis 07/28/20 Procedures Procedure Date Related Diagnosis Body Site Status LLE angiogram without intervention 03/25/20 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 09/02/19 Completed lle angio w well logging mud analysis captain l peroneal a nd stent l common iliac art 07/15/19 Completed Abdominal aortogram w/ ORCHARD PRUNER/s tent of paulo PONCHO 07/06/19 Completed RLE DRILL PUNCH OPERATOR - Endarterectomy of the common femoral artery wi/ bovine patch and fem-ant tib in situ bypass 04/17/19 Compl eted RLE Angiogram without intervention 04/03/19 Completed Revision RLE transmetatarsal amputation 11/11/18 Completed RLE angiogram w/ ORCHARD PRUNER peronea l and popliteal artery 10/10/18 Completed Amputation of left 1st toe a nd metatarsal 02/11/18 Completed RLE angiogram w/ ORCHARD PRUNER peroneal 11/22/17 Completed RLE angiogram w/ ORCHARD PRUNER peronea l, TP trunk and pop 09/16/17 Completed Amputation of Right 3rd toe 07/12/17 Completed RLE Surgical debridement of foot wound, transmetatarsal amp 4th toe, excision 3rd metatartsal and prox phalnx 06/19/17 Completed RLE angiogram w/ ORCHARD PRUNER/stent p opliteal artery, ORCHARD PRUNER peroneal 06/14/17 Completed RLE 5th toe amputation 04/30/17 Co mpleted RLE angiogram with intervention 02/15/17 Completed RLE Mechanical Atherectomy a nd ORCHARD PRUNER of popliteal, thrombolysis/TPA and recheck 02/15/17 Completed Nephrectomy 04/2013 Completed Vascular surgery 02/25/13 Complete d Popliteal artery 2 02/2013 Comple prisca Plantar wart 3 01/2013 Completed Planters Warts Removed From Foor 2012 Completed Cardiac catheterization 11/21/11 C ompleted Colonoscopy 2012 Completed Attempted Kidney Stent-Right 2011 Completed bilateral cataracts 2010 Compl eted Endoscopy 2009 Completed L carotidendartectomy 2003 Com pleted L breast biopsy 1997 Completed Rt carotidendarterectomy 1995 Completed Cholecystectomy 1988 Completed complete hysterectomy 1976 Com pleted partial oophorectomy 1969 Comp leted sinus polyp 1969 Completed Appendectomy 1960 Completed Tonsillectomy 1949 Completed Duplex Completed Duplex Completed 1right kidney 2bypass 3removal of the left foot Results Radiology Reports * Exam Date Time Procedure Performing Provider Status 07/28/20 12:35 PM XR Foot Complete 3+ Views Left Zachary Kaur; Final Notes: (XR Foot Complete 3+ Views Left) Reason For Exam: eval left foot XR Foot Complete 3+ Views Left EXAMINATION: XR Foot Complete 3+ Views Left CLINICAL HISTORY: M79.672: Pain in left foot; eval left foot COMPARISON: Outside MRI of the left ankle on 06/23/2020 Outside x-ray of the left calcaneus on 06/23/2020 FINDINGS: Weightbearing AP, AP oblique internal rotation, lateral views of the left foot. Focal 2 cm soft tissue ulceration overlying the posterior calcaneus with adjacent calcaneal sclerotic changes, similar to 06/14/2020. No definite cortical erosion or focal osteopenia. 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 Mild osteoarthritis of the first metatarsophalangeal and interphalangeal joints. IMPRESSION: Focal retrocalcaneal soft tissue ulceration with osteomyelitis seen on prior outside MRI. Dr. Geno Bronson is the dictating resident. Finalized reports status indicates that the attending has reviewed the images and report, and agrees with the interpretation. Preliminary report status shouldbe regarded as NOT interpreted by the attending radiologist. Final Dictated by:MD Bronson Jing Dictated DT/TM:07/28/2020 1:55 Resident:MD Bronson Jing Signed by:MD Robles Carissa Signed (Electronic Signature):07/28/2020 1:54 p Social History Social History Type Response Smoking Status Never smoked cigaret robert Sex Female
--- OUTSIDE RECORDS SUMMARY | 2023-01-31 23:12 | External Medical Summary ---
Author Name Unknown Address [address] [place] [address] Organization K1F:[facility] [address] [place] [address] Laboratory Report Ordering Provider Test Date Status MALIK SHETH 05/05/2019 06:35:00 Final Observation Date Value Abnormality Reference Status WBC, Total 05/05/2019 09:01 7.34 4.00-10.80 F inal RBC 05/05/2019 09:01 3.44 Below low normal 3.85-5 .15 Final Hemoglobin 05/05/2019 09:01 10.1 Below low normal 12.0- 15.3 Final HCT 05/05/2019 09:01 32.8 Below low normal 36.0-4 5.2 Final MCV 05/05/2019 09:01 95.3 81.5-97.5 Fin al MCH 05/05/2019 09:01 29.4 27.0-34.0 Fin al MCHC 05/05/2019 09:01 30.8 Below low normal 32.0-3 6.0 Final RDW 05/05/2019 09:01 15.4 11.5-15.5 Fin al Platelets 05/05/2019 09:01 315 140-400 Fin al MPV 05/05/2019 09:01 10.8 6.6-11.1 Fin al nRBC/100 WBC Bld Auto-Rto 05/05/2019 09:01 0 0 Final Segs 05/05/2019 09:01 68.4 40-75 Fin al Lymphs % 05/05/2019 09:01 20.0 18-42 Fin al Monos 05/05/2019 09:01 7.6 1-11 Fin al Eosinophils 05/05/2019 09:01 2.6 0-6 F inal Basos 05/05/2019 09:01 0.3 0-2 Fin al Immature Granulocyte, Percent 05/05/2019 09:01 1.1 0-2 Final Neutrophils Bld 05/05/2019 09:01 5.02 1.8-7.7 Final Lymphs, absolute 05/05/2019 09:01 1.47 1.0-4. 8 Final Monos, Abs 05/05/2019 09:01 0.56 0.0-1.1 Fi nal Eos, Abs 05/05/2019 09:01 0.19 0.0-0.7 Fin al Basos, Abs 05/05/2019 09:01 0.02 Below low normal 0.1-0 .2 Final Immature Granulocytes, Number 05/05/2019 09:01 0.08 0.0-0.2 Final Performing Location [address] [place] [address]
--- OUTSIDE RECORDS SUMMARY | 2023-01-31 23:13 | External Medical Summary ---
Author Name UNSPECIFIED Organization [facility] History of Encounters Reason for Assessment: Recertification ( follow-up) reassessment Functional Assessment When Dyspneic: With moderate exerti on (e.g., while dressing, using commode or bedpan, walking distances less than 20 feet) Urinary Incontinence or Urin estrella Catheter Present: Patient is incontinent Bowel Incontinence Frequency: Very rarel y or never has bowel incontinence Current Ability: Ambulation: Requires us e of a two-handed device (e.g., walker or crutches) to walk alone on a level surface and/or requires human supervision or assistance to negotiate stairs or steps or uneven surfaces. Procedures Therapies Received at Home: None Problems Primary Home Care Diagnosis ICD Code: Z4 7.81, Encounter for orthopedic aftercare following surgical amp Home Care Diagnosis 1: ICD Code: Z89.421 , Acquired absence of other right toe(s) Home Care Diagnosis 2: ICD Code: E11.51, Type 2 diabetes w diabetic peripheral angiopath w/o gangrene Home Care Diagnosis 2: Severity Ratin Home Care Diagnosis 3: ICD Code: I70.203 , Unsp athscl [place] arteries of extremities, bilateral legs Home Care Diagnosis 3: Severity Ratin Home Care Diagnosis 4: ICD Code: I10., E ssential (primary) hypertension Home Care Diagnosis 4: Severity Ratin Home Care Diagnosis 5: ICD Code: Z79.02, rotary cutter operator (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
--- OUTSIDE RECORDS SUMMARY | 2023-01-31 23:13 | External Medical Summary ---
Author Name UNSPECIFIED Organization [facility] History of Encounters Reason for Assessment: Recertification ( follow-up) reassessment Functional Assessment When Dyspneic: When walking more th an 20 feet, climbing stairs Bowel Incontinence Frequency: Very rarel y or never has bowel incontinence Current Ability: Bathing: Unable to use the shower or tub, but able to bathe self independently with or without the use of devices at the sink, in chair, or on commode. Current Ability: Ambulation: Requires us e of [...] 3: ICD Code: I70.203 , Unsp athscl [place] arteries of extremities, bilateral legs Home Care Diagnosis 3: Severity Ratin Home Care Diagnosis 4: ICD Code: I10., E ssential (primary) hypertension Home Care Diagnosis 4: Severity Ratin Home Care Diagnosis 5: ICD Code: Z79.02, terminal carman (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
--- OUTSIDE RECORDS SUMMARY | 2023-01-31 23:13 | External Medical Summary ---
Author Name Unknown Address [address] [place] [address] Phone Organization K01:[facility] [address] [facility] [address] Laboratory Report Ordering Provider Test Date Status DOM JALLOH 01/07/2017 11:13:00 Final Observation Date Value Abnormality Reference Status Rheumatoid Factor 01/07/2017 16:05 <10 <14 Final Performing Location [facility] [address] [facility] [address]
--- OUTSIDE RECORDS SUMMARY | 2023-01-31 23:13 | External Medical Summary ---
Author Name UNSPECIFIED Organization [facility] History of Encounters Reason for Assessment: Recertification ( follow-up) reassessment Functional Assessment Urinary Incontinence or Urin estrella Catheter Present: [...] Primary Home Care Diagnosis ICD Code: T8 1.89XA, Oth complications of procedures, NEC, init Home Care Diagnosis 1: ICD Code: Z89.421 , Acquired absence of other right toe(s) Home Care Diagnosis 2: ICD Code: E11.51, Type 2 diabetes w diabetic peripheral angiopath w/o gangrene Home Care Diagnosis 2: Severity Ratin Home Care Diagnosis 3: ICD Code: I70.203 , Unsp athscl [place] arteries of extremities, bilateral legs Home Care Diagnosis 3: Severity Ratin Home Care Diagnosis 4: ICD Code: I10., E ssential (primary) hypertension Home Care Diagnosis 4: Severity Ratin Home Care Diagnosis 5: ICD Code: Z79.4, terminal supervisor (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
--- OUTSIDE RECORDS SUMMARY | 2023-01-31 23:13 | External Medical Summary | Summary of Care ---
Author Name Unknown Organization [place] [address] Phone Care Team Providers Care Pump Servicer Name Role Phone Agustín Jarvis MD Primary Care Provider [phone] Reason for Visit * Reason Comments FOLLOW UP Encounter Details Date Type Department Care Team Description 11/07/2017 Office Visit Podiatry [facility] [address] [facility] [place] [address] Maya Marie, DPTyler [address] [place] [address] Onychomycosis*;Diabet ic peripheral neuropathy (HCC);Peripheral vascular disease (HCC);History of amputation of lesser toe, right (HCC) Allergies Active Allergy Reactions Severity Noted Date Comments Insulin Glargine Hives 06/01/2010 Lantus Ivp Dye Hives 08/05/2006 Insulin Aspart 08/05/2006 hives Lisinopril Edema Other 06/01/2010 Angioedema as of this encounter Medications Prescription Sig. Disp. Refills Start Date End Date Status ALBUTEROL 90 MCG/ACT IN AERS 2 puffs every 4 hrs as needed 1 MDI 5 08/05/2006 Active ADVAIR DISKUS 500-50 MCG/DOSE IN MISC as needed 1 0 08/05/2006 Active LEVEMIR 100 UNIT/ML SUBQ SOLN 36 units at night Active HYDROCHLOROTHIAZIDE 25 MG PO TABS 1 TABLET EVERY MORNING 05/13/2012 Active ATORVASTATIN CALCIUM 80 MG PO TABS one pill each day Active CLOPIDOGREL BISULFATE 75 MG PO TABS one pill each day Acti ve HUMALOG 100 UNIT/ML SUBQ SOLN sliding scale coverage Active LEVOTHYROXINE SODIUM 112 MCG OR TABS one pill each day Ac tive NIFEDIPINE ER 30 MG PO TB24 one pill each day Active SPIRONOLACTONE 25 MG PO TABS one pill twice a day Active VITAMIN D-3 1000 UNITS PO CAPS one pill once a day Active Losartan Potassium 100 MG Tablet Take 1 Tab by mouth daily. 02/09/2016 Active omeprazole (PRILOSEC) 40 MG CPDR 12/06/2016 Active ZETIA 10 MG Tablet 10/19/2016 Active carvedilol (COREG) 25 MG Tablet 1/2 tab in the am and 1 tab in the pm 01/09/2017 Active cephalexin (KEFLEX) 500 MG Capsule Take 1 Cap by mouth 2 times a day. 14 Cap 0 03/28/2017 Active as of this encounter Active Problems Problem Noted Date Hypothyroidism 08/05/2006 Dyslipidemia, goal to be determined 10/2006 DM type 2, not at goal (HCC) 08/05/2006 HYPERTENSION NOS 08/05/2006 S/P carotid endarterectomy 08/05/2006 as of this encounter Social History Tobacco Use Types Packs/Day Years Used Date Never Smoker Smokeless Tobacco: Never Used Sex Assigned at Date Recorded Not on file as of this encounter Progress Notes * Maya Marie DPM - 11/11/2017 2:59 PM EDT Formatting of this note may be different from the original. Podiatry Established Note [facility] Name: Trista Almaraz : 1945 Date: 11/07/2017 REASON FOR VISIT: nail care SUBJECTIVE: This patient is a 72 year old female who presents today with complaints of thickened, elongated, deformed toenails. She denies pain to the toes, but does have peripheral neuropathy with PAD and Raynauds. She admits to having ulcerations to her right foot amputation site. She has a dressing intact, she reports aquacel ag. She is seeing [place] [facility] care. She offers no other complaints. Past Medical History: Diagnosis Date Asthma Benign neoplasm of colon 06/01/10 polyp--villous tissue repeat in 1 yr Carotid artery occlusion syndrome Carpal tunnel syndrome Cataracts, bilateral Diabetes mellitus with neuropathy (HCC) H/O unilateral nephrectomy 2013 Right Hypertension Peripheral arterial disease (HCC) Raynaud's phenomenon (secondary) Stage 3 chronic kidney disease ALLERGIES: Review of patient's allergies indicates: Allergen Reactions Insulin Glargine Hives Lantus Ivp Dye Hives Novolog [Insulin Aspart] hives Prinivil [Lisinopril] Edema Other Angioedema REVIEW OF SYSTEMS: CONSTITUTIONAL: No change in weight, No weakness, No fatigue and No fevers, sweats, or chills EXTREMITIES: No pain, redness or swelling on the joints SKIN/INTEGUMENTARY: No edema, No rash, No itching and Positive for slow healing wounds right foot amputation site. FOCUSED PODIATRIC EXAM: Vascular: Pedal pulses non-palpable including dorsalis pedis and posterior tibial artery secondary to dressing right. Capillary refill time is within normal limits to all toes left foot. No edema noted. No warmth. Absence of pedal hair growth noted. Neurologic: Sensation (light touch) intact to the bilateral lower extremities. Protective sensation absent with5.07 [place] Rony Monofilament. Muscle tone within normal limits. Musculoskeletal: No pain with palpation of toes 1-5 left and 1-2 right. Amputation toes 3-4-5 right. Dermatological: Skin is thin, mildly cool temperature. Toenails 1-5 left are elongated, thickened. Toenails 1-2 right are elongated, thickened, and discolored with hypertrophic growth. No rash or interdigital changes. Q Codes: Q7 - Class A Findings: A1- Nontraumatic amputation of foot or integral skeletal portion thereof. DIAGNOSTIC STUDIES: Hemoglobin AIC Results: No HEMOGLOBIN, A1C components found ASSESSMENT: 1. Onychomycosis TA T1 T2 T3 T4 T5 T6 2. Diabetic peripheral neuropathy (HCC) 3. Peripheral vascular disease (HCC) 4. History of amputation of lesser toe, right (HCC) PLAN: Procedure: After mild cleansing and drying of feet, toenails 1-5 bilaterally were manually and mechanically debrided without incident. A nail splitter was used to remove all incurvating edges. A nail professional wasused to trim nail to appropriate length. An electrical bur was used in a side to side motion to reduce nail thickness, hypertrophic growth, and to smooth all edges. Patient tolerated well. They noted improvement following procedure. I did recommend she seek DM shoes with fillers after right foot is healed. She is currently using cam-walker. She is high risk for ulceration of prominent first and second rays. Follow up: 3 months Maya Marie DPM in this encounter Nursing Notes * Nette Mack LPN - 11/07/2017 1:33 PM EDT Pt presents today for diabetic nail care. Pt states that her blood sugar was 105 this morning. in this encounter Plan of Treatment Upcoming Encounters Date Type Specialty Care Team Description 02/10/2018 Office Visit Podiatry Maya Marie DPM [address] [place] [address] Scheduled Tests Name Priority Associated Diagnoses Order S chedule DEBRIDEMENT OF NAILS 6 OR MORE Routine Onychomycosis Diabetic peripheral neuropathy (HCC) Peripheral vascular disease (HCC) Ordered: 11/11/2017 Health Maintenance Due Date Last Done Comments DIABETES-EYE EXAM 1963 DIABETES-FOOT EXAM 1963 DIABETES-HGBA1C EVERY 6 MONTHS 1964 DIABETES-URINE MICROALBUMIN EVERY 12 MONTHS 1964 DTaP,Tdap,and Td Vaccines (1 - Tdap) 1965 BREAST CANCER SCREENING DISC USSION YEARLY AGES 40-75 1986 DIABETES-LDL EVERY 12 MONTHS 08/06/2007 08/05/2006 DXA-SCREENING EVERY 7 YRS-US E SMARTSET# 3348 TO ORDER 2011 PNEUMOCOCCAL ADULT 65 YRS AN D OVER (1 of 2 - PCV13) 2011 *DEPRESSION SCREENING, MARIBELL Tate FOR PTS 18 AND OVER 03/24/2016 *TSH FOR THYROID MEDICATION MONITORING YEARLY 03/24/2016 *URINE PROTEIN ONCE FOR HTN-DIPSTICK ACCEPTABLE 03/24/2016 *BASIC METABOLIC PANEL (BMP) FOR HTN YEARLY 01/24/2017 COLONOSCOPY-EVERY 3 YRS AGES 18-100 08/02/2017 08/02/2014, 08/02/2014, 08/23/2011, Additional history exists *LDL AFTER STARTING A STATIN 10/15/2017 Influenza Vaccine (FLU shot) (Season Ended) 2018 as of this encounter Implants Not on fileas of this encounter Visit Diagnoses Diagnosis Onychomycosis - Primary Dermatophytosis of nail Diabetic peripheral neuropat hy (HCC) Type II or unspecified type diabetes mellitus with neurological manifestations, not stated as uncontrolled Peripheral vascular disease (HCC) Peripheral vascular disease, unspecified History of amputation of les ser toe, right (HCC) in this encounter
--- OUTSIDE RECORDS SUMMARY | 2023-01-31 23:13 | External Medical Summary ---
Author Name UNSPECIFIED Organization [facility] History of Encounters Reason for Assessment: Transferred to an inpatient facility - patient not discharged from agency Date of Last Home Visit: 02/25/2018 Inpatient Facility where the patient been admitted: [facility]
--- OUTSIDE RECORDS SUMMARY | 2023-01-31 23:13 | External Medical Summary ---
Author Name Unknown Address Unknown Organization LLAB:Performed at [address] [place] [address] Laboratory Report Ordering Provider Test Date Status DOM JALLOH 01/07/2017 11:13:00 Final Observation Date Value Abnormality Reference Status WBC, Total 01/07/2017 11:41 6.89 4.00-10.80 F inal RBC 01/07/2017 11:41 3.74 Below low normal 3.85-5 .15 Final Hemoglobin 01/07/2017 11:41 11.6 Below low normal 12.0- 15.3 Final HCT 01/07/2017 11:41 34.5 Below low normal 36.0-4 5.2 Final MCV 01/07/2017 11:41 92.2 81.5-97.5 Fin al MCH 01/07/2017 11:41 31.0 27.0-34.0 Fin al MCHC 01/07/2017 11:41 33.6 32.0-36.0 Fin al RDW 01/07/2017 11:41 13.1 11.5-15.5 Fin al Platelets 01/07/2017 11:41 168 140-400 Fin al MPV 01/07/2017 11:41 11.1 6.6-11.1 Fin al Performing Location Performed at [address] [place] [address]
--- OUTSIDE RECORDS SUMMARY | 2023-01-31 23:13 | External Medical Summary ---
Author Name UNSPECIFIED Organization [facility] History of Encounters Reason for Assessment: Resumption of car e (after inpatient stay) Inpatient discharge facility: Past 14 Da ys: Discharged From Short Stay Acute Hospital Most Recent Inpatient Discharge Date: Un known Functional Assessment High Risk Factor: None Patient Living Situation: Patient lives with other person(s) in the home: Around the clock Does this patient have a Ris k of Developing Pressure Ulcers: No Bowel Incontinence Frequency: Very rarel y or never has bowel incontinence Cognitive and Behavioral and Psychiatric Symptoms: None Current Ability: Bathing: Able to bathe in shower or tub with the intermittent assistance of another person: (a) for intermittent supervision or encouragement or reminders, OR (b) to get in and out of the shower or tub, OR (c) for washing difficult to reach areas. Current Ability: Ambulation: Requires us e of a two-handed device (e.g., walker or crutches) to walk alone on a level surface and/or requires human supervision or assistance to negotiate stairs or steps or uneven surfaces. Has Patient Had A Multi-fact or Fall Risk Assessment? Yes, and it does not indicate a risk for falls Current: Management Of Oral Medications: Able to independently take the correct oral medication(s) and proper dosage(s) at the correct time How Often Recv ADL Or IADL A ssistance From Any: At least daily Procedures Regimen Change in Past 14 Da ys: ICD Code 1: T87.53, Necrosis of amputation stump, ri ght lower extremity Therapies Received at Home: None Problems Primary Home Care Diagnosis ICD Code: T8 7.53, Necrosis of amputation stump, right lower extremity Home Care Diagnosis 1: ICD Code: Z89.421 , Acquired absence of other right toe(s) Home Care Diagnosis 2: ICD Code: E11.51, Type 2 diabetes w diabetic peripheral angiopath w/o gangrene Home Care Diagnosis 2: Severity Ratin Home Care Diagnosis 3: ICD Code: I82.4Z1 , Ac emblsm and thombos unsp deep veins of r dist low extrm Home Care Diagnosis 3: Severity Ratin Home Care Diagnosis 4: ICD Code: I12.9, Hypertensive chronic kidney disease w stg 1-4/unsp chr kdny Home Care Diagnosis 4: Severity Ratin Home Care Diagnosis 5: ICD Code: E11.22, Type 2 diabetes mellitus w diabetic chronic kidney disease Home Care Diagnosis 5: Severity Ratin Surgical wound: Surgical wound known but not observable due to non-removable dressing Has Skin Lesion Or Open Wound: No Inpatient Stay Within Last 1 4 Days: ICD Code 1: T87.53, Necrosis of amputation stump, ri ght lower extremity
--- OUTSIDE RECORDS SUMMARY | 2023-01-31 23:13 | External Medical Summary ---
Author Name UNSPECIFIED Organization [facility] History of Encounters Reason for [...] 3: ICD Code: I70.203 , Unsp athscl [place] arteries of extremities, bilateral legs Home Care Diagnosis 3: Severity Ratin Home Care Diagnosis 4: ICD Code: I10., E ssential (primary) hypertension Home Care Diagnosis 4: Severity Ratin Home Care Diagnosis 5: ICD Code: Z79.02, terminal operations supervisor (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
--- OUTSIDE RECORDS SUMMARY | 2023-01-31 23:13 | External Medical Summary | Summary of Care ---
Author Name [place] [address] Phone Care Team Providers Care Mercury Cell Cleaner Name Role Phone Agustín Jarvis MD Primary Care Provider [phone] Reason for Referral * Precert (Routine) Status Reason Specialty Diagnoses / Procedures Referred By Contact Referred To Contact Pending Review Precert Radiology Diagnoses Multiple pulmonary nodules Procedures CT CHEST WO CONTRAST Radiology [facility] [address] [place] [address] Encounter Details Date Type Department Care Team Description 07/04/2017 Orders Only Radiology, [facility] [address], [place] [id number] Requisition, External Radiology [address] [place] [address] Multiple pulmonary nodules* Allergies Active Allergy Reactions Severity Noted Date [...] Not on file as of this encounter Plan of Treatment Upcoming Encounters Date Type Specialty Care Team Description 07/23/2017 Office Visit Rheumatology Magalie Ko MD [address] [place] [address] [phone] 07/30/2017 Imaging Radiology [facility] [address] [place] [address] Scheduled Tests Name Priority Associated Diagnoses Order S chedule CT CHEST WO CONTRAST Routine Multiple pulmonary nodules Ordered: 07/04/2017 Health Maintenance Due Date Last Done Comments DIABETES-EYE EXAM 1963 DIABETES-FOOT EXAM 1964 DIABETES-HGBA1C EVERY 6 MONTHS 1964 DIABETES-URINE MICROALBUMIN EVERY 12 MONTHS 1964 BREAST CANCER SCREENING DISC USSION YEARLY AGES 40-75 1986 DIABETES-LDL EVERY 12 MONTHS 08/06/2007 08/05/2006 DXA-SCREENING EVERY 7 YRS-US E SMARTSET# 3348 TO ORDER 2011 PNEUMOCOCCAL ADULT 65 YRS AN D OVER (1 of 2 - PCV13) 2011 TETANUS EVERY 10 YEARS-TDAP (BOOSTRIX OR ADACEL) SUGGESTED IF NOT RECEIVED IN THE PAST. 2011 *ADVANCE DIRECTIVE NOT ON FILE 03/24/2016 *DEPRESSION SCREENING, MARIBELL Tate FOR PTS 18 AND OVER 03/24/2016 *TSH FOR THYROID MEDICATION MONITORING YEARLY 03/24/2016 *URINE PROTEIN ONCE FOR HTN-DIPSTICK ACCEPTABLE 03/24/2016 Influenza Vaccine (FLU shot) (#1) 2017 *BASIC METABOLIC PANEL (BMP) FOR HTN YEARLY 01/24/2017 COLONOSCOPY-EVERY 3 YRS AGES 18-100 08/02/2017 08/02/2014, 08/02/2014, 08/23/2011, Additional history exists as of this encounter Implants Not on fileas of this encounter Visit Diagnoses Diagnosis Multiple pulmonary nodules - Primary Other nonspecific abnormal finding of lung field in this encounter Insurance Payer Benefit Plan / Group Subscriber ID Type Phone Address MEDICARE MEDICARE A AND B [id number] Medicare [place] [id number] [address] [place] [address] as of this encounter
--- OUTSIDE RECORDS SUMMARY | 2023-01-31 23:13 | External Medical Summary ---
Author Name UNSPECIFIED Organization [facility] History of Encounters Reason for Assessment: Start of care - f urther visits planned Inpatient discharge facility: Past 14 Da ys: Discharged From Short Stay Acute Hospital Most Recent Inpatient Discharge Date: Functional Assessment High Risk Factor: None Patient Living Situation: Patient lives with other person(s) in the home: Around the clock Frequency Of Pain Interferin g With Patient's Activity Or Movement: Daily, but not constantly Does this patient have a Ris k [...] chair, or on commode. Current Ability: Ambulation: Able to wal k only with the supervision or assistance of another person at all times. Has Patient Had A Multi-fact or Fall Risk Assessment? Yes, and it indicates a risk for falls Current: Management Of Oral Medications: Able to independently take the correct oral medication(s) and proper dosage(s) at the correct time How Often Recv ADL Or IADL A ssistance From Any: At least daily Procedures Regimen Change in Past 14 Da ys: ICD Code 1: E11.621, Type 2 diabetes mellitus with f oot ulcer Regimen Change in Past 14 Da ys: ICD Code 2: L97.518^ Regimen Change in Past 14 Da ys: ICD Code 3: E11.52, Type 2 diabetes w diabetic peripheral angiopathy w gangrene Therapies Received at Home: None Problems Primary Home Care Diagnosis ICD Code: Z4 7.81, Encounter for orthopedic aftercare following surgical amp Home Care Diagnosis 1: ICD Code: E11.9, Type 2 diabetes mellitus without complications Home Care Diagnosis 1: Severity Ratin Home Care Diagnosis 2: ICD Code: I10., E ssential (primary) hypertension Home Care Diagnosis 2: Severity Ratin Home Care Diagnosis 3: ICD Code: Z48.01, Encounter for change or removal of surgical wound dressing Home Care Diagnosis 4: ICD Code: Z79.4, long term (current) use of insulin Home Care Diagnosis 5: ICD Code: Z89.421 , Acquired absence of other right toe(s) Surgical wound: Yes, patient has at least one (observable) surgical wound Has Skin Lesion Or Open Wound: No Inpatient Stay Within Last 1 4 Days: ICD Code 1: E11.621, Type 2 diabetes mellitus with f oot ulcer Inpatient Stay Within Last 1 4 Days: ICD Code 2: L97.518^ Inpatient Stay Within Last 1 4 Days: ICD Code 3: E11.52, Type 2 diabetes w diabetic peripheral angiopathy w gangrene
--- OUTSIDE RECORDS SUMMARY | 2023-01-31 23:13 | External Medical Summary ---
Author Name UNSPECIFIED Organization [facility] History of Encounters Reason for Assessment: [...] toe(s) Home Care Diagnosis 2: ICD Code: I70.263 , Athscl [place] arteries of extrm w gangrene, bilateral legs Home Care Diagnosis 2: Severity Ratin Home Care Diagnosis 3: ICD Code: E11.9, Type 2 diabetes mellitus without complications Home Care Diagnosis 3: Severity Ratin Home Care Diagnosis 4: ICD Code: I10., E ssential (primary) hypertension Home Care Diagnosis 4: Severity Ratin Home Care Diagnosis 5: ICD Code: Z48.00, Encounter for change or removal of nonsurg wound dressing Surgical wound: Yes, patient has at least one (observable) surgical wound
--- OUTSIDE RECORDS SUMMARY | 2023-01-31 23:13 | External Medical Summary ---
Author Name Unknown Address [facility] [place] [address] Phone Organization K01:[facility] [address] [id number] Laboratory Report Ordering Provider Test Date Status DOM JALLOH 01/07/2017 11:13:00 Final Observation Date Value Abnormality Reference Status DARIEN, EMELYN Screen 01/08/2017 11:45 SEE IFA CONFIRMATORY TEST RESULT Final DARIEN, dilution 01/09/2017 16:14 5120 Above high normal <40 Final DARIEN, pattern 01/09/2017 16:14 CENTROMERE(DISCRETE SPECKLED) Final Performing Location [facility] [address] [facility] [address]
--- OUTSIDE RECORDS SUMMARY | 2023-01-31 23:13 | External Medical Summary ---
Author Name UNSPECIFIED Organization [facility] History of Encounters Reason for [...] and negotiate stairs with or without railings. Has Patient Had A Multi-fact or Fall Risk Assessment? Yes, and it indicates a risk for falls Current: Management Of Oral Medications: Able to independently take the correct oral medication(s) and proper dosage(s) at the correct time How Often Recv ADL Or IADL A ssistance From Any: At least daily Procedures Regimen Change in Past 14 Days: ICD Code 1: I70.263, Athscl [place] arteries of extrm w gangrene, bilateral legs Therapies Received at Home: None Problems Primary Home Care Diagnosis ICD Code: Z4 7.81, Encounter for orthopedic aftercare following surgical amp Home Care Diagnosis 1: ICD Code: Z89.421 , Acquired absence of other right toe(s) Home Care Diagnosis 2: ICD Code: I70.263 , Athscl [place] arteries of extrm w gangrene, bilateral legs [...] Last 1 4 Days: ICD Code 1: I70.263, Athscl [place] arteries of extrm w gangrene, bilateral legs
--- OUTSIDE RECORDS SUMMARY | 2023-01-31 23:13 | External Medical Summary ---
Author Name Unknown Address Unknown Organization LLAB:Performed at [address] [place] [address] Laboratory Report Ordering Provider Test Date Status DOM JALLOH 01/07/2017 11:13:00 Final Observation Date Value Abnormality Reference Status ESR 01/07/2017 12:38 39 Above high normal 0-20 Final Performing Location Performed at [facility] [address] [facility] [address]
--- OUTSIDE RECORDS SUMMARY | 2023-01-31 23:13 | External Medical Summary ---
Author Name UNSPECIFIED Organization [facility] History of Encounters Reason for Assessment: Transferred to an inpatient facility - patient not discharged from agency Date of Last Home Visit: 06/18/2017 Inpatient Facility where the patient been admitted: [facility]
[2023-02-01] MEDS: LEVOTHYROXINE SODIUM 100 MCG TABLET PO SCH (06:20)
[2023-02-01 07:53] LABS: Hematocrit (blood only) 29.9 % (37.0-47.0); Hemoglobin 9.5 g/dl (12.0-16.0); Mean Corpuscular Hemoglobin 29.4 pg (25.0-34.0); Mean Corpuscular Hgb Conc 31.8 g/dL (32.0-36.0); Mean Corpuscular Volume 92.6 fL (80.0-100.0); Mean Platelet Volume 10.8 fL (9.4-12.4); Platelet Count 257 K/uL (130-400); RDW Coefficient of Variation 13.7 % (11.5-14.5); RDW Standard Deviation 46.6 fL (36.4-46.3); Red Blood Count 3.23 M/uL (4.20-5.40); White Blood Count 8.31 K/ul (4.8-10.8)
[2023-02-01] MEDS: INSULIN ASPART PER UNIT CHARGE SC SCH ×3 (08:54→16:45)
[2023-02-01] MEDS: CLOPIDOGREL BISULFATE 75 MG TAB PO SCH (08:57)
[2023-02-01] MEDS: carvediloL 25 MG TAB PO SCH (08:57)
[2023-02-01] MEDS: LOSARTAN POTASSIUM 50 MG TAB PO SCH (08:58)
[2023-02-01] MEDS: FERROUS GLUCONATE 324 MG TAB PO SCH (08:58)
[2023-02-01] MEDS: SPIRONOLACTONE 25 MG TAB PO SCH (08:59)
--- NOTE | 2023-02-01 09:24 | Consultation ---
Date of Consultation February 01, 2023 History of Present Illness Attending Physician: Alex Barnett MD History of Present Illness Patient seen and usn reviewed. No consult is needed. Her graft is patent with biphasic waveforms beyond. No intervention planned unless wound does not show signs of healing. Allergies Allergy/AdvReac Type Severity Reaction Status Date / Time enflurane Allergy Severe NAUSEA, Verified 01/23/23 11:07 jaundiced Iodinated Contrast Media Allergy Intermediate HIVES - Verified 01/23/23 11:07 IVP DYE CHECO Inhibitors Allergy Mild hives Verified 01/23/23 11:07 nickel Allergy Mild REDNESS Verified 01/23/23 11:07 AND ITCHING liraglutide [From Victoza] AdvReac Mild SEVERE Verified 01/23/23 11:07 NAUSEA Home Medications Medication Instructions Recorded Confirmed Type blood sugar diagnostic (Contour #[id number] ea 08/08/20 01/30/23 Rx Test Strips) glucagon HCl 1 mg solution for 1 mg subcut Q20M PRN hypoglycemia 06/29/21 01/30/23 Rx injection (Glucagon (HCl) #1 ea Emergency Kit) insulin detemir U-100 100 unit/mL See Rx Instructions subcut QPM #4 07/05/21 01/30/23 Rx subcutaneous solution (Levemir vials U-100 Insulin) Prosthetic gel liners #2 ea 12/11/21 01/30/23 Rx Suspension sleeves #2 ea 12/11/21 01/30/23 Rx insulin lispro 100 unit/mL 1 sliding scale dose subcut 02/16/22 01/30/23 History subcutaneous solution (Humalog USEASDIRECTD U-100 Insulin) atorvastatin 80 mg tablet 80 mg PO QPM #90 tabs 02/23/22 01/30/23 Rx cholecalciferol (vitamin D3) 25 1,000 unit PO HS 06/19/22 01/30/23 History mcg (1,000 unit) capsule (Vitamin D3) clopidogrel 75 mg tablet (Plavix) 75 mg PO QAM #90 tabs 07/12/22 01/30/23 Rx docusate sodium 100 mg capsule 100 mg PO DAILY 10/25/22 01/30/23 History (Dulcolax Stool Softener (docusate)) nifedipine 60 mg tablet,extended 60 mg PO HS #90 tabs 10/31/22 01/30/23 Rx release R BKA prosthesis S88.111A #1 ea 11/27/22 01/30/23 Rx mometasone-formoterol HFA 200 2 puff inhalation BID PRN 12/20/22 01/30/23 History mcg-5 mcg/actuation aerosol Shortness Of Breath inhaler (Dulera) spironolactone 25 mg tablet See Rx Instructions .Route .COMPLEX 12/20/22 01/30/23 History ferrous gluconate 324 mg (37.5 mg 324 mg PO DAILY #30 tabs 01/03/23 01/30/23 Rx iron) tablet carvedilol 25 mg tablet (Coreg) 25 mg PO BID #180 tabs 01/23/23 01/30/23 Rx levothyroxine 100 mcg tablet 100 mcg PO DAILY #90 tabs 01/23/23 01/30/23 Rx losartan 100 mg tablet (Cozaar) 100 mg PO QAM #90 tabs 01/23/23 01/30/23 Rx omeprazole 20 mg capsule,delayed 20 mg PO HS #90 caps 01/23/23 01/30/23 Rx release sertraline 50 mg tablet See Rx Instructions .Route .COMPLEX 01/30/23 01/30/23 History Patient History Medical History Anemia CHRONIC; BASELINE HGB STABLE AT 9-10 RANGE PER CHART REVIEW Asthma CONTROLLED/LAST USE OF INHALER "A LONG TIME AGO" Below-knee amputation of right lower extremity Carotid artery stenosis S/P LEFT (2002), RIGHT (1995) Cerebral aneurysm Chronic kidney disease STAGE III - FOLLOWS WITH NEPHRO- CREATINE USUALLY 1.3-1.5 Conductive hearing loss of right ear Constipation CREST syndrome Deep vein thrombosis RLE DVT DX'D 01/2018; CHRONIC-- ON XARELTO BID (PCP/VASCULAR MONITORING) Diabetes IDDM Diabetic foot ulcer Diverticular disease 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 Hx of carotid stenosis BOTH SIDES - HAD LEFT CEA 2002 AND RIGHT CEA 1995 Hx of deep venous thrombosis 2017 R LE Hx of renal cell cancer R RENAL (2012) S/P R NEPHRECTOMY - NO RADIATION NO CHEMO Hyperkalemia Hyperlipidemia Hypertension Hypertensive urgency Hypothyroidism Left carpal tunnel syndrome Occlusion and stenosis of carotid artery with cerebral infarction On anticoagulant therapy Osteoporosis Otalgia, left ear PAD (peripheral artery disease) Pressure ulcer of right foot, stage 2 Raynauds syndrome Renal artery stenosis RIGHT KIDNEY STENT ATTEMPTED 2010; S/P RIGHT NEPHRECTOMY 2012 Right lumbar radiculitis S/P angiogram of extremity left leg Scleroderma TMJ derangement Tympanic membrane perforation Vertigo Surgical History H/O carotid endarterectomy LEFT (2002), RIGHT (1995) H/O sinus surgery History of amputation of lesser toe of right foot MULTIPLE TOE AMPUTATIONS/I&D (ALL RT TOES) History of angioplasty MULTIPLE OF LE'S WITH STENTS TO LOWER EXTREMITIES PLACED History of appendectomy History of atherectomy LEFT (02/2017) History of cardiac cath 2011= NO STENTS (C) History of carpal tunnel surgery RIGHT HAND, TRIGGER RIGHT FINGER History of cataract surgery RT/LEFT History of cholecystectomy History of colonoscopy History of endoscopic sinus surgery History of esophagogastroduodenoscopy (EGD) History of hysterectomy MERYL W/ BSO History of left breast biopsy 1997 History of nephrectomy RIGHT (2012) History of oophorectomy B/L OVARIES History of procedure for peripheral vascular disease LEFT POPLITEAL S/P PERONEAL ARTERY BYPASS 2012; RLE ANGIO WITH INTERVENTION 06/2017 History of tonsillectomy Hx of lumpectomy LEFT BREAST (BENIGN) Nausea and vomiting after administration of anesthetic agent S/P amputation right Below the knee amputation Family History Father Family hx of colon cancer Family history of diabetes mellitus Mother Lung cancer Stroke Unknown Rheumatoid arthritis Other No family history of adverse response to anesthesia No family history of bleeding disorder Social History Smoking Status: Never smoker Second Hand Exposure: No; Do You Dip or Chew Tobacco: No; Hx Alcohol Use: No Hx Substance Use: No Preferred Language: Amharic Communication Ability: Effective Visual Impairment: No Limitations Hearing Ability: Normal Plumbing Instructor Required: No Beliefs That Will Affect Care: None marital status: Current Living Situation: Spouse current occupational status: retired How many Children do You have: 0 How many Children do You have Comment: able to assist with care as needed. Feels Safe at Home: Yes Diet: diabetic during the past year weight has: decreased > 10 lbs Seatbelt Use: always Do you think of yourself as: straight/heterosexual Gender Identity: Female Assistive Devices: Cane, Prosthesis, Walker, Wheelchair and Other Results & Data Vital Signs (Past 12 Hours) Vital Signs Temp Pulse Resp BP Pulse Ox O2 Del Method 02/01/23 07:11 36.6 C 57 L 16 154/65 H 97 Room Air 01/31/23 21:30 36.8 C 58 L 16 137/67 94 Room Air
[2023-02-01] MEDS: DOCUSATE SODIUM 100 MG CAP PO SCH (12:14)
--- NOTE | 2023-02-01 12:38 | Pharmacy Report ---
Pharmacy Glycemic Short Note 2 - Date of Service February 01, 2023 - Glycemic Short BSG Results (Last 24 hours): 01/31/23 01/31/23 02/01/23 16:40 21:07 07:42 POC Glucose 82 194 H 99 02/01/23 11:35 POC Glucose 173 H OUTPATIENT ANTIDIABETIC REGIMEN: * Detemir 15 units SQ HS * Lispro SSI ASSESSMENT: 02/01 * Patient received total of 25 units of insulin yesterday, of which 15 units were basal (home dose) * Fasting BSG 99 mg/dL - lower end of range, will scale back slightly so basal/bolus more evenly split * No change to CF/CR 01/31 * 77 yo female with PMH of chronic anemia, asthma, multiple vascular complications (carotid artery stenosis, right DVT, PAD, and BTKA of RLE), IDDM, and scleroderma presenting due to left foot wound dehiscence. Cultures pending. * Patient on basal bolus insulin at home as above, started home basal dose last night, continue. * Blood sugars at goal, continue CF/CR and titrate as needed. PLAN FOR INPATIENT GLYCEMIC CONTROL: * Hold outpatient diabetes medications * Basal insulin - decrease * Lantus 12 units SQ HS * Bolus insulin * NovoLog per scale ACHS or Q6hrs while NPO * Goal Range: Low 110 mg/dL - High 140 mg/dL * Correction Factor: 35 mg/dL/unit * Nutritional / Prandial insulin per carb ratio of 1 unit per 12 grams CHO consumed
--- NOTE | 2023-02-01 14:17 | Discharge Summary ---
Date of Service February 01, 2023 Admission HPI Per Admitting Provider Pt is a 77 yo female with PMH of chronic anemia, asthma, multiple vascular complications (carotid artery stenosis, right DVT, PAD, and BTKA of RLE), IDDM, and scleroderma presenting due to left foot wound dehiscence. Pt states she had her left foot operated on 01/09/2023 due to forefoot gangrene. She underwent a left heel ulcer debridement and left transmetatarsal amputation. Per the patient, this wound dehisced on 01/16/2023 and this was sewn back together at the podiatry office. Her wound dehisced again this morning around 3 AM. She was not doing anything at that time to cause her wound to open. In the ER, lab work revealed no leukocytosis, Hgb 10.2 (baseline ~10-11), electrolytes WNL, and Cr 0.89. She was hemodynamically stable with hypertension and mild bradycardia. Principal Diagnosis left foot wound dehiscence Discharge Exam The patient is awake, alert and oriented 3, well developed and well nourished, normocephalic and atraumatic, lying in bed and in no acute distress. HEENT--PERRL, EOMI, mucous membranes and oropharynx mildly dry Neck--supple. No JVD. No bruits. Thyroid normal, trachea midline, no adenopathy. Heart--normal S1 and S2. No murmurs, rubs or gallops. Lungs--clear bilaterally, no respiratory distress, no accessory muscle use. Abdomen--normal bowel sounds and soft. Mild epigastric and left sided abdominal pain Extremities--left bka, right bka Dermatologic--normal skin turgor, normal color, no abnormal lymph nodes, no rash. Neurologic--cranial nerves II through XII grossly intact. Rheumatologic--normal range of motion. Psychiatric--normal affect. Discharge Data Allergies Allergy/AdvReac Type Severity Reaction Status Date / Time enflurane Allergy Severe NAUSEA, Verified 01/23/23 11:07 jaundiced Iodinated Contrast Media Allergy Intermediate HIVES - Verified 01/23/23 11:07 IVP DYE CHECO Inhibitors Allergy Mild hives Verified 01/23/23 11:07 nickel Allergy Mild REDNESS Verified 01/23/23 11:07 AND ITCHING liraglutide [From Victoza] AdvReac Mild SEVERE Verified 01/23/23 11:07 NAUSEA Consultations 01/30/23 11:23 ED Decision to Admit Stat 01/30/23 11:53 Consult Podiatry Routine 01/30/23 20:30 Consult Vascular Surgery Routine Ordered Studies 01/30/23 11:42 US arterial duplex LE LT Stat Hospital Course (1) Dehiscence of amputation stump of left lower extremity: Pt is a 77 yo female with PMH of chronic anemia, asthma, multiple vascular complications (carotid artery stenosis, right DVT, PAD, and BTKA of RLE), IDDM, and scleroderma presenting due to left foot wound dehiscence. Dehiscence of left foot surgical wound: - original left foot metatarsal amputation performed 01/09/2023; this is her second dehiscence of the wound; it was previously fixed by Podiatry 01/16/2023 - wound does not appear to be acutely infected so will not start Abx; blood cx and wound cx negative - Hgb stable at 9.3, continue to monitor - podiatry and wound care consulted for further management, wound vac is in place - Vascular Surgery evaluation seen, appreciated - tramadol as needed for pain (2) Gangrene due to arterial insufficiency: - per pt, pain feels similar to past arterial occlusions; pt does have a hx of right LE DVT, she is no longer on anticoagulation, only Plavix - duplex 01/30/23 without significant change but with extensive atherosclerotic plaque in the LLE - Vascular Surgery appreciated, no procedures needed for now (3) Anemia: - Chronic, with history of iron deficiency - Iron level 01/23/23 improving, continue iron supplement (4) Diabetes: - well controlled; last A1c in December 2022 7.5% - insulin glargine 15 units daily with SSI (5) Benign essential hypertension: - continue home regimen, pt normotensive (6) PAD (peripheral artery disease): - continue clopidogrel, statin, BP control Total Time Total Time Spent Total Time Spent (In Minutes): 35 Discharge Plan Discharge Items Patient Disposition: Home - Home Health Services Reason For Visit: LEFT FOOT WOUND DEHISCENCE Discharge Diagnosis: left foot wound dehiscence Condition on Discharge: Good Activity: Resume your previous activity Non-emergency contact: Primary Care Provider Call non-emergency contact if: you have any medication questions and your symptoms worsen Follow-up/Referrals: Agustín Jarvis MD [Primary Care Provider] - (Your PCP office will contact you with a hospital follow up visit.) Diet: Regular Addtl Attending Provider Instructions: please continue to follow up with wound care Pending Studies at Discharge: No Stand-Alone Forms: [facility], Smoking Cessation Medications and DC Order Prescriptions: Continued (DME) Contour Test Strips Strip See Rx Instructions .ROUTE .MEDSUPPLY Qty: 270 3RF Rx Instructions: check 3 times daily E11.9 Glucagon (HCl) Emergency Kit 1 mg recon soln 1 mg subcut Q20M PRN (Reason: hypoglycemia) Qty: 1 0RF Rx Instructions: until target blood sugar attained (DME) Prosthetic gel liners See Rx Instructions .Route .MEDSUPPLY Qty: 2 11RF Rx Instructions: As directed (DME) Suspension sleeves See Rx Instructions .Route .MEDSUPPLY Qty: 2 11RF Rx Instructions: As directed atorvastatin 80 mg tablet 80 mg PO QPM Qty: 90 3RF clopidogrel [Plavix] 75 mg tablet 75 mg PO QAM Qty: 90 3RF nifedipine 60 mg tablet extended release 60 mg PO HS Qty: 90 3RF (DME) R BKA prosthesis S88.111A See Rx Instructions .Route .MEDSUPPLY Qty: 1 0RF Rx Instructions: As directed ferrous gluconate 324 mg (37.5 mg iron) tablet 324 mg PO DAILY Qty: 30 0RF carvedilol [Coreg] 25 mg tablet 25 mg PO BID Qty: 180 3RF levothyroxine 100 mcg tablet 100 mcg PO DAILY Qty: 90 3RF losartan [Cozaar] 100 mg tablet 100 mg PO QAM Qty: 90 3RF omeprazole 20 mg capsule,delayed release(DR/EC) 20 mg PO HS Qty: 90 3RF docusate sodium [Dulcolax Stool Softener (dss)] 100 mg capsule 100 mg PO DAILY Levemir U-100 Insulin 100 unit/mL solution See Rx Instructions SQ QPM Qty: 4 3RF Rx Instructions: 15 units, at bedtime. insulin lispro [Humalog U-100 Insulin] 100 unit/mL Solution 1 sliding scale dose SUBCUT USEASDIRECTD Patient Comments: 1 unit per 7 grams of carbs; unsure of CF sertraline 50 mg tablet See Rx Instructions .ROUTE .COMPLEX Rx Instructions: Per pt she took the medication and felt it made her sick so she wants to speak with her doctor about it. cholecalciferol (vitamin D3) [Vitamin D3] 25 mcg (1,000 unit) capsule 1,000 unit PO HS spironolactone 25 mg tablet See Rx Instructions .ROUTE .COMPLEX Rx Instructions: Per pt she was back to 25 mg twice daily but received 50 mg in the mail so she's currently doing 50 mg once daily. Dulera 200-5 mcg/actuation HFA aerosol inhaler 2 puff inhalation BID PRN (Reason: Shortness Of Breath) Admission Data Admit Date/Time: 01/30/23 11:51 Attending Provider: Alex Barnett Admit Provider: Isabelle Esparza Primary Care Provider: Agustín Jarvis Other Providers: Natalio Balderas ; Edgar Brooks ; Wesley Umana Coding Level of Care Code 06080 INP/OBS DISCH >30 MIN Diagnoses Dehiscence of amputation stump of left lower extremity T87.81 Gangrene due to arterial insufficiency I77.1; I96 Anemia D64.9 Diabetes E11.9 Benign essential hypertension I10 PAD (peripheral artery disease) I73.9 Time Spent (min) 35
[2023-02-01] MEDS: ENOXAPARIN INJ 40 MG/0.4 ML SYR SQ SCH (16:45)
[2023-02-01] MEDS ORDERED: LANTUS PER UNIT CHARGE SQ SCH ×2 (21:00)
== END 2023-02-01 17:48 | disposition home health service (06) ==
LOC: EDINP 07:57 → ED 07:57 → SUATTDRO 11:51 → 3N 14:22

== ENCOUNTER 2023-02-11 09:09 | Inpatient (IN) ==
[2023-02-11 10:07] LABS: Basophils # (auto) 0.02 K/uL (0.00-0.20); Basophils % (auto) 0.2 %; Eosinophils # (auto) 0.08 K/uL (0.00-0.50); Eosinophils % (auto) 0.6 %; Hematocrit (blood only) 29.6 % (37.0-47.0); Hemoglobin 9.7 g/dl (12.0-16.0); Immature Granulocytes # (auto) 0.06 K/uL (0.01-0.20); Immature Granulocytes % (auto) 0.5 %; Lymphocytes # (auto) 0.97 K/uL (1.20-3.40); Lymphocytes % (auto) 7.3 %; Mean Corpuscular Hgb Conc 32.8 g/dL (32.0-36.0); Mean Corpuscular Volume 88.4 fL (80.0-100.0); Mean Platelet Volume 10.9 fL (9.4-12.4); Monocytes % (auto) 3.8 %; Neutrophils % (auto) 87.6 %; Platelet Count 309 K/uL (130-400); RDW Coefficient of Variation 13.6 % (11.5-14.5); RDW Standard Deviation 44.2 fL (36.4-46.3); Red Blood Count 3.35 M/uL (4.20-5.40); White Blood Count 13.23 K/ul (4.8-10.8)
--- NOTE | 2023-02-11 10:16 | XRay Report ---
XR chest 1V not portable CLINICAL HISTORY: Sepsis. COMPARISON STUDY: Chest CT July 25, 2018. Chest radiograph December 20, 2022. FINDINGS: Lung volumes are normal. Lungs are clear. There is no pneumothorax or pleural effusion. Car diac size is normal. Mediastinal contours are normal. There is no evidence for pulmonary edema. Bilat eral axillary calcifications are unchanged. IMPRESSION: No acute cardiopulmonary findings. ACT 112: Negative or not required by law. Electronically signed by: Wing Coughlin M.D. 02/11/2023 10:14 AM
[2023-02-11 10:24] LABS: Alanine Aminotransferase 10 U/L (7-52); Albumin Globulin Ratio 1.1 (0.9-2); Albumin Level 3.7 gm/dl (3.4-5.0); Alkaline Phosphatase 182 U/L (34-104); Anion Gap 11 (3-11); Aspartate Aminotransferase 13 U/L (13-39); BUN Creatinine Ratio 22.1 (10-20); Bilirubin,Total 0.5 mg/dl (0.2-1.0); Blood Urea Nitrogen 25 mg/dl (6-23); Calcium 8.9 mg/dl (8.6-10.3); Carbon Dioxide 23 mmol/L (21-32); Chloride 101 mmol/L (98-107); Est GFR (African American) 54.7 ml/min; Est GFR (Non-African American) 47.2 ml/min; Globulin 3.4 gm/dl (2.5-4.0); Glucose 104 mg/dl (70-99(Fasting)); Magnesium 1.3 mg/dl (1.7-2.4); Potassium 4.3 mmol/L (3.5-5.1); Sodium 135 mmol/L (136-145); Total Protein 7.1 gm/dl (6.0-8.3)
[2023-02-11 10:30] LABS: Troponin I High Sensitivity 16.6 pg/ml (0-14)
[2023-02-11 10:35] LABS: INR 1.1 (0.9-1.1); Partial Thromboplastin Ratio 1.1; Partial Thromboplastin Time 31.1 Seconds (21.0-31.0); Prothrombin Time 11.6 Seconds (9.0-12.0)
[2023-02-11] MEDS ORDERED: SODIUM CHLORIDE 0.9% 1,000 ML IV ONE (10:40)
[2023-02-11] MEDS ORDERED: PIPERACILLIN/TAZOBACTAM 4.5 GM/120 ML BAG IV STA (10:41)
[2023-02-11] MEDS ORDERED: ACETAMINOPHEN 500 MG TAB PO STA (10:41)
[2023-02-11] MEDS ORDERED: SULFAMETHOXAZOLE/TRIMETHOPRIM DS 800/160MG TAB PO STA (10:42)
--- NOTE | 2023-02-11 10:58 | History & Physical Report ---
Date of Service February 11, 2023 Assessment & Plan (1) Gangrene due to arterial insufficiency: Plan: Start daptomycin, Zosyn + Bactrim to specifically cover Stenotrophomonas maltophilia on prior wound culture Consult podiatry Consult infectious disease (2) Dehiscence of amputation stump of left lower extremity: Plan: Wound vac to be changed today Consult podiatry as above (3) Hypomagnesemia: Plan: Mg level 1.3, Mg sulfate 4g IV total, repeat level QAM for the next 3 days as likely to continue to drop as equilibrium is reached (4) Diabetes: Plan: Hemoglobin A1C 9.5 Continue Lantus 15 units HS Novolog: --Goal BSG Range: Low 110 mg/dL, High 140 mg/dL --Correction Factor: 35 mg/dL/unit --Carbohydrate ratio = 12 g/unit --BSGs ACHS if eating, q6h if npo (5) PAD (peripheral artery disease): Plan: Continue clopidogrel (6) Benign essential hypertension: Plan: Notably did not take medication on morning of admission and BP low normal Continue carvedilol, given current BP/HR will hold nifedipine, spironolactone and losartan Would reintroduce nifedipine initially if BP elevated given she took this last night (7) Chronic GERD: Plan: Switch omeprazole to pantoprazole 40mg HS (8) Hypothyroidism: Plan: TSH WNL in September Continue current dose of levothyroxine Plan VTE Prophylaxis - Lovenox 40mg SQ daily Diet - T2DM, heart healthy, NPO after midnight Disposition - admit to med/surg Admission and Anticipated Discharge Date Admission Date: February 11, 2023 History of Present Illness Chief Complaint: Left foot pain, fever, chills Primary Care Provider: Agustín Jarvis MD Trista Almaraz is a 77 year old female with peripheral artery disease, right below knee amputation and left foot transmetatarsal amputation who presents to the ER with fever, chills, nausea. She has had an ongoing foot infection for many months initially managed by wound care. She underwent LLE angio with intervention performed by Dr Umana on December 24 2022. Original left foot metatarsal amputation performed 01/09/2023 - immediately dehisced, attempted primary closure again after debriding the surgical site in office 01/16, wound dehisced again after suture removal and she was admitted at the end of January with wound vac placed at that time without antibiotics given although surface wound culture grew Stenotrophomonas maltophilia and trevor albicans. She reports doing well up until the last night when she noted worsening foot pain again with fever, chills and nausea. Allergies Allergy/AdvReac Type Severity Reaction Status Date / Time enflurane Allergy Severe NAUSEA, Verified 02/11/23 11:37 jaundiced Iodinated Contrast Media Allergy Intermediate HIVES - Verified 02/11/23 11:37 IVP DYE CHECO Inhibitors Allergy Mild hives Verified 02/11/23 11:37 nickel Allergy Mild REDNESS Verified 02/11/23 11:37 AND ITCHING liraglutide [From Victoza] AdvReac Mild SEVERE Verified 02/11/23 11:37 NAUSEA Home Medications Medication Instructions Recorded Confirmed Type glucagon HCl 1 mg solution for 1 mg subcut Q20M PRN hypoglycemia 06/29/21 02/11/23 Rx injection (Glucagon (HCl) #1 ea Emergency Kit) insulin lispro 100 unit/mL 1 sliding scale dose subcut 02/16/22 02/11/23 History subcutaneous solution (Humalog USEASDIRECTD U-100 Insulin) atorvastatin 80 mg tablet 80 mg PO QPM #90 tabs 02/23/22 02/11/23 Rx cholecalciferol (vitamin D3) 25 1,000 unit PO HS 06/19/22 02/11/23 History mcg (1,000 unit) capsule (Vitamin D3) clopidogrel 75 mg tablet (Plavix) 75 mg PO QAM #90 tabs 07/12/22 02/11/23 Rx nifedipine 60 mg tablet,extended 60 mg PO HS #90 tabs 10/31/22 02/11/23 Rx release mometasone-formoterol HFA 200 2 puff inhalation BID PRN 12/20/22 02/11/23 History mcg-5 mcg/actuation aerosol Shortness Of Breath inhaler (Dulera) ferrous gluconate 324 mg (37.5 mg 324 mg PO DAILY #30 tabs 01/03/23 02/11/23 Rx iron) tablet carvedilol 25 mg tablet (Coreg) 25 mg PO BID #180 tabs 01/23/23 02/11/23 Rx levothyroxine 100 mcg tablet 100 mcg PO DAILY #90 tabs 01/23/23 02/11/23 Rx losartan 100 mg tablet (Cozaar) 100 mg PO QAM #90 tabs 01/23/23 02/11/23 Rx omeprazole 20 mg capsule,delayed 20 mg PO HS #90 caps 01/23/23 02/11/23 Rx release docusate sodium 100 mg capsule 100 mg PO BID 02/05/23 02/11/23 History (Dulcolax Stool Softener (docusate)) spironolactone 25 mg tablet 50 mg PO DAILY 02/05/23 02/11/23 History nystatin 100,000 unit/gram topical 1 applic topical BID #60 grams 02/06/23 02/11/23 Rx powder insulin detemir U-100 100 unit/mL 15 unit subcut HS 02/11/23 02/11/23 History subcutaneous solution (Levemir U-100 Insulin) Past Med/Surg History Medical History Anemia CHRONIC; BASELINE HGB STABLE AT 9-10 RANGE PER CHART REVIEW Asthma CONTROLLED/LAST USE OF INHALER "A LONG TIME AGO" Below-knee amputation of right lower extremity Carotid artery stenosis S/P LEFT (2002), RIGHT (1995) Cerebral aneurysm Chronic kidney disease STAGE III - FOLLOWS WITH NEPHRO- CREATINE USUALLY 1.3-1.5 Conductive hearing loss of right ear Constipation CREST syndrome Deep vein thrombosis RLE DVT DX'D 01/2018; CHRONIC-- ON XARELTO BID (PCP/VASCULAR MONITORING) Diabetes IDDM Diabetic foot ulcer Diverticular disease Gangrene due to arterial insufficiency left foot GERD (gastroesophageal reflux disease) History of COVID-19 12/20/22 [facility] - no symptoms History of MRSA infection April 2017 (right foot - has since been amputated) --> no active infection. Hx of carotid stenosis BOTH SIDES - HAD LEFT CEA 2002 AND RIGHT CEA 1995 Hx of deep venous thrombosis 2017 R LE Hx of renal cell cancer R RENAL (2012) S/P R NEPHRECTOMY - NO RADIATION NO CHEMO Hyperkalemia Hyperlipidemia Hypertension Hypertensive urgency Hypothyroidism Left carpal tunnel syndrome Occlusion and stenosis of carotid artery with cerebral infarction On anticoagulant therapy Osteoporosis Otalgia, left ear PAD (peripheral artery disease) Pressure ulcer of right foot, stage 2 Raynauds syndrome Renal artery stenosis RIGHT KIDNEY STENT ATTEMPTED 2010; S/P RIGHT NEPHRECTOMY 2012 Right lumbar radiculitis S/P angiogram of extremity left leg Scleroderma TMJ derangement Tympanic membrane perforation Vertigo Surgical History H/O carotid endarterectomy LEFT (2002), RIGHT (1995) H/O sinus surgery History of amputation of lesser toe of right foot MULTIPLE TOE AMPUTATIONS/I&D (ALL RT TOES) History of angioplasty MULTIPLE OF LE'S WITH STENTS TO LOWER EXTREMITIES PLACED History of appendectomy History of atherectomy LEFT (02/2017) History of cardiac cath 2011= NO STENTS (C) History of carpal tunnel surgery RIGHT HAND, TRIGGER RIGHT FINGER History of cataract surgery RT/LEFT History of cholecystectomy History of colonoscopy History of endoscopic sinus surgery History of esophagogastroduodenoscopy (EGD) History of hysterectomy MERYL W/ BSO History of left breast biopsy 1997 History of nephrectomy RIGHT (2012) History of oophorectomy B/L OVARIES History of procedure for peripheral vascular disease LEFT POPLITEAL S/P PERONEAL ARTERY BYPASS 2012; RLE ANGIO WITH INTERVENTION 06/2017 History of tonsillectomy Hx of lumpectomy LEFT BREAST (BENIGN) Nausea and vomiting after administration of anesthetic agent S/P amputation right Below the knee amputation Family History Father Family hx of colon cancer Family history of diabetes mellitus Mother Lung cancer Stroke Unknown Rheumatoid arthritis Other No family history of adverse response to anesthesia No family history of bleeding disorder Social History Smoking Status: Never smoker Second Hand Exposure: No; Do You Dip or Chew Tobacco: No; Hx Alcohol Use: No Hx Substance Use: No Preferred Language: Egyptian Communication Ability: Effective Visual Impairment: No Limitations Hearing Ability: Normal Dietetics Professor Required: No Beliefs That Will Affect Care: None marital status: Current Living Situation: Spouse current occupational status: retired How many Children do You have: 0 How many Children do You have Comment: able to assist with care as needed. Other Information That Helps Us Care for You: No Feels Safe at Home: Yes Safety Concerns: Feels Safe At This Time Diet: diabetic during the past year weight has: decreased > 10 lbs Seatbelt Use: always Do you think of yourself as: straight/heterosexual Gender Identity: Female Assistive Devices: Cane, Prosthesis, Walker and Wheelchair Review of Systems Review of Systems: All systems reviewed & are unremarkable except as noted in HPI & below Physical Exam Constitutional: WD/WN, vitals as above Eyes: + anicteric sclerae; normal pupil size ENMT: external ear and nose normal, oropharynx normal Neck: trachea midline, no thyromegaly Respiratory: normal respiratory effort, lungs clear to auscultation Cardiovascular: RRR, no murmur, no edema Gastrointestinal (Abdomen): normal bowel sounds, soft, nontender, no hepatos plenomegaly Musculoskeletal: no cyanosis or clubbing, extremities motor strength 5/5 Skin: Wound vac in place without surrounding cellulitis, wound vac not removed Neurologic: moves all extremities and awake; not confused Psychiatric: A+Ox3, euthymic affect Results & Data Results & Data Vital Signs (Past 12 Hours) Vital Signs Temp Pulse Resp BP Pulse Ox O2 Del Method 02/11/23 09:21 37.7 C H 73 20 143/66 H 97 Room Air Laboratory Results Abnormal lab results 02/11/23 02/11/23 02/11/23 Range/Units 09:43 09:43 09:43 WBC 13.23 H (4.8-10.8) K/ul RBC 3.35 L (4.20-5.40) M/uL Hgb 9.7 L (12.0-16.0) g/dl Hct 29.6 L (37.0-47.0) % Neut # (Auto) 11.60 H (1.40-6.50) K/uL Lymph # (Auto) 0.97 L (1.20-3.40) K/uL APTT 31.1 H (21.0-31.0) Seconds Sodium (136-145) mmol/L BUN (6-23) mg/dl BUN/Creatinine Ratio (10-20) Glucose (70-99(Fasting)) mg/dl Lactate 2.2 H* (0.4-2.0) mmol/L Magnesium (1.7-2.4) mg/dl Alkaline Phosphatase (34-104) U/L Troponin I High Sens (0-14) pg/ml 02/11/23 Range/Units 09:43 WBC (4.8-10.8) K/ul RBC (4.20-5.40) M/uL Hgb (12.0-16.0) g/dl Hct (37.0-47.0) % Neut # (Auto) (1.40-6.50) K/uL Lymph # (Auto) (1.20-3.40) K/uL APTT (21.0-31.0) Seconds Sodium 135 L (136-145) mmol/L BUN 25 H (6-23) mg/dl BUN/Creatinine Ratio 22.1 H (10-20) Glucose 104 H (70-99(Fasting)) mg/dl Lactate (0.4-2.0) mmol/L Magnesium 1.3 L (1.7-2.4) mg/dl Alkaline Phosphatase 182 H (34-104) U/L Troponin I High Sens 16.6 H (0-14) pg/ml Diagnostic Findings XR chest 1V not portable CLINICAL HISTORY: Sepsis. COMPARISON STUDY: Chest CT July 25, 2018. Chest radiograph December 20, 2022. FINDINGS: Lung volumes are normal. Lungs are clear. There is no pneumothorax or pleural effusion. Cardiac size is normal. Mediastinal contours are normal. There is no evidence for pulmonary edema. Bilateral axillary calcifications are unchanged. IMPRESSION: No acute cardiopulmonary findings. Medications Administered ER Medications Given: Normal saline 1L bolus Zosyn 4.5g IV Bactrim 800/160mg 1 tab Acetaminophen 1000mg PO ECG Rate (beats per minute): 76 Rhythm: normal sinus Findings: + left axis deviation Comparison ECG Date: from (December 25, 2022) Change: the following changes noted (TWI no longer evident in lateral leads) Code Status & VTE Plan Code Status DNR/DNI VTE Prophylaxis Plan VTE Prophylaxis will be ordered: Yes PG Care Time/CCT Total # of Minutes Spent Total Time Spent with Patient: Total time spent is greater than 50% in coordination of care (as documented) at patient's floor/unit and/or counseling patient: Coding Level of Care Code 91329 INT INP/OBS CARE 3/75MIN Diagnoses Gangrene due to arterial insufficiency I77.1; I96 Dehiscence of amputation stump of left lower extremity T87.81 Hypomagnesemia E83.42 Diabetes E11.9 PAD (peripheral artery disease) I73.9 Benign essential hypertension I10 Chronic GERD K21.9 Hypothyroidism E03.9
[2023-02-11] MEDS ORDERED: DAPTOmycin 200 MG in SYRINGE 0 ML IV STA (10:59)
[2023-02-11] MEDS ORDERED: MAGNESIUM SULFATE / D5W 1 GM/100 ML BAG IV STA (11:02)
--- NOTE | 2023-02-11 11:13 | XRay Report ---
XR foot LT min 3V routine HISTORY: 77 years-old Female post amputation wound infection. wound vac status post partial amputati on of the left foot COMPARISON: 12/28/2022 TECHNIQUE: 3 views of the left foot FINDINGS: Demineralized appearance of the bones. Moderate osteoarthritis. Status post amputation of the forefoo t at the level of the mid diaphyseal metatarsals. Some centimeter radiodense foci projecting over the amputation stump suggestive of probable bone fragments. Moderate soft tissue swelling with deep tiss ue air.. A wound VAC is present. No acute fracture, dislocation or osseus identified. IMPRESSION: Status post amputation of the forefoot at the level of the middiaphyseal metatarsals. Sof t tissue swelling with deep tissue air and subcentimeter bone fragments are likely expected postopera tive changes. ACT 112: Negative or not required by law. The above report was generated using voice recognition software. It may contain grammatical, syntax o r spelling errors. Electronically signed by: Milton Bell M.D. 02/11/2023 11:12 AM
[2023-02-11 12:03] LABS: C Reactive Protein 8.85 mg/dl (0-0.5)
--- NOTE | 2023-02-11 12:15 | Electrocardiogram Report ---
Test Reason : Blood Pressure : / mmHG Vent. Rate : 076 BPM Atrial Rate : 076 BPM P-R Int : 144 ms QRS Dur : 078 ms QT Int : 378 ms P-R-T Axes : 011 -61 107 degrees QTc Int : 425 ms Normal sinus rhythm Left axis deviation Poor R wave progression, consider anterior RI vs. lead placement vs. LVH Abnormal ECG When compared with ECG of 25-DEC-2022 23:09, Premature atrial complexes are no longer Present QRS axis Shifted left T wave inversion no longer evident in Lateral leads Confirmed by Pawan Adame ([id number]) on 02/11/2023 12:15:07 PM Referred By: REFERRED SELF Confirmed By:Pawan Adame
[2023-02-11] MEDS ORDERED: GLUCOSE 40% GEL 15 GM TUBE PO PRN (13:06)
[2023-02-11] MEDS ORDERED: GLUCOSE 10 TAB/TUBE PO PRN (13:06)
[2023-02-11] MEDS ORDERED: CARBOHYDRATES FOR HYPOGLYCEMIA PO PRN (13:06)
[2023-02-11] MEDS ORDERED: GLUCAGON FOR INJ 1 MG VIAL SQ PRN (13:06)
[2023-02-11] MEDS: INSULIN ASPART PER UNIT CHARGE SC SCH ×3 (13:15→21:06)
[2023-02-11] MEDS: MAGNESIUM SULFATE / D5W 1 GM/100 ML BAG IV SCH ×3 (14:35→18:28)
[2023-02-11] MEDS: PIPERACILLIN/TAZOBACTAM 4.5 GM in DEXTROSE 5% 100 ML IV SCH ×2 (16:34→23:31)
--- NOTE | 2023-02-11 16:53 | Emergency Department Note ---
Impression & Plan Sepsis ED Provider Note INFORMANT: Patient ED PROVIDER(S): Henri Smith MD CHIEF COMPLAINT: Wound infection PLAN: Disposition: Admitted Condition: Good Outpatient prescription management: none Referral: None. Patient presents because of concerns about wound infection. MEDICAL DECISION MAKING: Sepsis work-up was initiated. She had a borderline temperature. Her white count was mildly elevated. Lactate was elevated overall she is doing well does not have any hypotension to suggest severe sepsis or septic shock. She had a fluid bolus administered as well as IV daptomycin, Zosyn and oral Bactrim based upon discussion with ED pharmacist and prior culture results. She has grown out a stenotrophomonas which would require the Bactrim. Patient will require admission to the hospital. Chest x-ray was unremarkable and her foot x-ray showed postsurgical changes. Patient did have mildly low magnesium and replenishment was ordered by internal medicine. Consultation was made with Dr. Edgar Brooks of the [facility] service. Patient was evaluated in the ER for further management. Repeat lactate was normal. Patient's troponin was borderline. Her ECG did not show any acute changes. Discussed with ED case manage and ED pharmacist.. After review of the information above and other included data, I feel the patient requires admission. Triage Nursing notes reviewed and agree them. Vital Signs: reviewed and remarkable for fever Prior /Outside records reviewed: Prior culture results and records reviewed. Differential diagnosis: Sepsis, wound infection, UTI, pneumonia, metabolic, electrolyte abnormalities, cardiac sources, intracerebral event, toxicologic, neurologic, as well as other pathologies. Diagnostics, as interpreted by me: ECG: Twelve-lead ECG reveals a normal sinus rhythm at 76 bpm. Left axis deviation and anterior Q waves present. No ST elevation or T WI. Cardiac Monitoring: Cardiac monitoring ordered by me: The patient was placed on continuous cardiac monitoring and observed. It revealed a normal sinus rhythm at 66 beats per minute without ectopy or evidence of dysrhythmia. Medical decision rules: none Imaging studies: Chest x-ray. Findings: A chest x-ray was performed and revealed no pneumothorax, effusion, infiltrate, pulmonary edema, free air under the diaphragm, or wide mediastinum. Impression: No acute disease. Left foot x-rays consistent with postsurgical changes. I refer you to the EMR for further details. HPI: The patient is a 77year old female who presents to the Emergency Room with complaints of wound infection. This started over the last few days and is related to a left foot surgical wound with a wound VAC in place. Patient notes that over the last few days she has had a foul smell from the wound VAC and increased foot pain. The patient also notes the following associated symptoms, fevers, chills, shakes, nausea at times. The patient has found no relieving factors. Current pain is rated as 8/10. Pt denies LOC, headache, diaphoresis, visual changes, neck pain, chest pain, breathing difficulties, nausea, vomiting, abdominal pain, back pain, melena, hematochezia, urinary symptoms, numbness, we akness, lymphadenopathy, rash, or other complaints. PAST MEDICAL HISTORY: See Below, PAD, diabetes PAST SURGICAL HISTORY: See Below, right leg amputation SOCIAL HISTORY: See Below, HOME MEDICATIONS: See Below ALLERGIES: See Below VITALS: See Below PHYSICAL EXAMINATION: GENERAL: Awake, alert, well-appearing, in no distress HENT: Normocephalic, atraumatic. Oropharynx unremarkable. EYES: Normal conjunctiva. Sclera non-icteric. Borderline tachycardic NECK: Inspection normal. Non-tender. Supple. No nuchal rigidity. FROM. No masses. RESPIRATORY: Clear to auscultation. No wheezes. No rales. Normal respiratory effort. CARDIAC: borderline tachycardic rate. Normal rhythm. No murmurs. No rubs. Extremities warm and well perfused. Pulses equal. No JVD. GI: Soft, non-distended. No tenderness to palpation. No rebound or guarding. No masses. RECTAL: Deferred. MUSCULOSKELETAL: Atraumatic. Chest examination reveals no tenderness. The back is symmetrical on inspection without obvious abnormality. There is no CVA tenderness to palpation. No joint edema. LOWER EXTREMITIES: Right leg amputation present. There is a wound VAC present on the distal left foot with toe amputation present. NEURO: Normal sensorium. No sensory or motor deficits noted. SKIN: No rash or jaundice noted. 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 Hx of carotid stenosis BOTH SIDES - HAD LEFT CEA 2002 AND RIGHT CEA 1995 Hx of deep venous thrombosis 2017 R LE Hx of renal cell cancer R RENAL (2012) S/P R NEPHRECTOMY - NO RADIATION NO CHEMO Hyperkalemia Hyperlipidemia Hypertension Hypertensive urgency Hypothyroidism Left carpal tunnel syndrome Occlusion and stenosis of carotid artery with cerebral infarction On anticoagulant therapy Osteoporosis Otalgia, left ear PAD (peripheral artery disease) Pressure ulcer of right foot, stage 2 Raynauds syndrome Renal artery stenosis RIGHT KIDNEY STENT ATTEMPTED 2010; S/P RIGHT NEPHRECTOMY 2012 Right lumbar radiculitis S/P angiogram of extremity left leg Scleroderma TMJ derangement Tympanic membrane perforation Vertigo Surgical History H/O carotid endarterectomy LEFT (2002), RIGHT (1995) H/O sinus surgery History of amputation of lesser toe of right foot MULTIPLE TOE AMPUTATIONS/I&D (ALL RT TOES) History of angioplasty MULTIPLE OF LE'S WITH STENTS TO LOWER EXTREMITIES PLACED History of appendectomy History of atherectomy LEFT (02/2017) [place] [place] History of carpal tunnel surgery RIGHT HAND, TRIGGER RIGHT FINGER History of cataract surgery RT/LEFT History of cholecystectomy History of colonoscopy History of endoscopic sinus surgery History of esophagogastroduodenoscopy (EGD) History of hysterectomy MERYL W/ BSO History of left breast biopsy 1997 History of nephrectomy RIGHT (2012) History of oophorectomy B/L OVARIES History of procedure for peripheral vascular disease LEFT POPLITEAL S/P PERONEAL ARTERY BYPASS 2012; RLE ANGIO WITH INTERVENTION 06/2017 History of tonsillectomy Hx of lumpectomy LEFT BREAST (BENIGN) Nausea and vomiting after administration of anesthetic agent S/P amputation right Below the knee amputation Family History Father Family hx of colon cancer Family history of diabetes mellitus Mother Lung cancer Stroke Unknown Rheumatoid arthritis Other No family history of adverse response to anesthesia No family history of bleeding disorder Social History Smoking Status: Never smoker Second Hand Exposure: No; Do You Dip or Chew Tobacco: No; Hx Alcohol Use: No Hx Substance Use: No Preferred Language: Tanzanian Communication Ability: Effective Visual Impairment: No Limitations Hearing Ability: Normal [employer] Required: No Beliefs That Will Affect Care: None marital status: Current Living Situation: Spouse current occupational status: retired How many Children do You have: 0 How many Children do You have Comment: able to assist with care as needed. Other Information That Helps Us Care for You: No Feels Safe at Home: Yes Safety Concerns: Feels Safe At This Time Diet: diabetic during the past year weight has: decreased > 10 lbs Seatbelt Use: always Do you think of yourself as: straight/heterosexual Gender Identity: Female Assistive Devices: Cane, Prosthesis, Walker and Wheelchair Allergies Allergies Allergy/AdvReac Type Severity Reaction Status Date / Time enflurane Allergy Severe NAUSEA, Verified 02/11/23 11:37 jaundiced Iodinated Contrast Media Allergy Intermediate HIVES - Verified 02/11/23 11:37 IVP DYE CHECO Inhibitors Allergy Mild hives Verified 02/11/23 11:37 nickel Allergy Mild REDNESS Verified 02/11/23 11:37 AND ITCHING liraglutide [From Victoza] AdvReac Mild SEVERE Verified 02/11/23 11:37 NAUSEA Home Meds Home Medications Medication Instructions Recorded Confirmed insulin lispro 100 unit/mL 1 sliding scale dose subcut 02/16/22 02/11/23 subcutaneous solution (Humalog USEASDIRECTD U-100 Insulin) cholecalciferol (vitamin D3) 25 1,000 unit PO HS 06/19/22 02/11/23 mcg (1,000 unit) capsule (Vitamin D3) mometasone-formoterol HFA 200 2 puff inhalation BID PRN 12/20/22 02/11/23 mcg-5 mcg/actuation aerosol Shortness Of Breath inhaler (Dulera) docusate sodium 100 mg capsule 100 mg PO BID 02/05/23 02/11/23 (Dulcolax Stool Softener (docusate)) spironolactone 25 mg tablet 50 mg PO DAILY 02/05/23 02/11/23 insulin detemir U-100 100 unit/mL 15 unit subcut HS 02/11/23 02/11/23 subcutaneous solution (Levemir U-100 Insulin) Previous Rx's Medication Instructions Recorded glucagon HCl 1 mg solution for 1 mg subcut Q20M PRN hypoglycemia 06/29/21 injection (Glucagon (HCl) #1 ea Emergency Kit) atorvastatin 80 mg tablet 80 mg PO QPM #90 tabs 02/23/22 clopidogrel 75 mg tablet (Plavix) 75 mg PO QAM #90 tabs 07/12/22 nifedipine 60 mg tablet,extended 60 mg PO HS #90 tabs 10/31/22 release ferrous gluconate 324 mg (37.5 mg 324 mg PO DAILY #30 tabs 01/03/23 iron) tablet carvedilol 25 mg tablet (Coreg) 25 mg PO BID #180 tabs 01/23/23 levothyroxine 100 mcg tablet 100 mcg PO DAILY #90 tabs 01/23/23 losartan 100 mg tablet (Cozaar) 100 mg PO QAM #90 tabs 01/23/23 omeprazole 20 mg capsule,delayed 20 mg PO HS #90 caps 01/23/23 release nystatin 100,000 unit/gram topical 1 applic topical BID #60 grams 02/06/23 powder Results & Data (ED) Vital Signs Vital Signs - 24 hr 02/11/23 09:21 Temperature 37.7 C H Temperature Source Temporal Artery Scan Pulse Rate 73 Respiratory Rate 20 Respiratory Effort / Characteristics Non-Labored Respiratory Depth Normal Blood Pressure 143/66 H Blood Pressure Mean 91 Blood Pressure Position Sitting Pulse Oximetry 97 Oxygen Delivery Method Room Air Sepsis Recent Fever Within 48 Hours No Sepsis New/Unexplained Change in Mental Status No Sepsis Action Taken by Nursing No Action Required Laboratory Data 02/11/23 09:43 02/11/23 09:43 Lab Results 02/11/23 02/11/23 02/11/23 Range/Units 09:43 09:43 09:43 WBC 13.23 H (4.8-10.8) K/ul RBC 3.35 L (4.20-5.40) M/uL Hgb 9.7 L (12.0-16.0) g/dl Hct 29.6 L (37.0-47.0) % MCV 88.4 (80.0-100.0) fL MCH 29.0 (25.0-34.0) pg MCHC 32.8 (32.0-36.0) g/dL RDW Std Deviation 44.2 (36.4-46.3) fL RDW Coeff of Pepper 13.6 (11.5-14.5) % Plt Count 309 (130-400) K/uL MPV 10.9 (9.4-12.4) fL Immature Gran % (Auto) 0.5 % Neut % (Auto) 87.6 % Lymph % (Auto) 7.3 % Brantley % (Auto) 3.8 % Eos % (Auto) 0.6 % Baso % (Auto) 0.2 % Neut # (Auto) 11.60 H (1.40-6.50) K/uL Lymph # (Auto) 0.97 L (1.20-3.40) K/uL Brantley # (Auto) 0.50 (0.11-0.59) K/uL Eos # (Auto) 0.08 (0.00-0.50) K/uL Baso # (Auto) 0.02 (0.00-0.20) K/uL Immature Gran # (Auto) 0.06 (0.01-0.20) K/uL ESR (0-30) mm/hr PT 11.6 (9.0-12.0) Seconds INR 1.1 (0.9-1.1) APTT 31.1 H (21.0-31.0) Seconds PTT Ratio 1.1 Sodium (136-145) mmol/L Potassium (3.5-5.1) mmol/L Chloride (98-107) mmol/L Carbon Dioxide (21-32) mmol/L Anion Gap (3-11) BUN (6-23) mg/dl Creatinine (0.6-1.2) mg/dl Est Cr Clr Drug Dosing Est GFR ( Amer) ml/min Est GFR (Non-Af Amer) ml/min BUN/Creatinine Ratio (10-20) Glucose (70-99(Fasting)) mg/dl Lactate 2.2 H* (0.4-2.0) mmol/L Calcium (8.6-10.3) mg/dl Magnesium (1.7-2.4) mg/dl Total Bilirubin (0.2-1.0) mg/dl AST (13-39) U/L ALT (7-52) U/L Alkaline Phosphatase (34-104) U/L Troponin I High Sens (0-14) pg/ml C-Reactive Protein (0-0.5) mg/dl Total Protein (6.0-8.3) gm/dl Albumin (3.4-5.0) gm/dl Globulin (2.5-4.0) gm/dl Albumin/Globulin Ratio (0.9-2) Procalcitonin (0-0.5) ng/ml 02/11/23 02/11/23 02/11/23 Range/Units 09:43 09:43 09:43 WBC (4.8-10.8) K/ul RBC (4.20-5.40) M/uL Hgb (12.0-16.0) g/dl Hct (37.0-47.0) % MCV (80.0-100.0) fL MCH (25.0-34.0) pg MCHC (32.0-36.0) g/dL RDW Std Deviation (36.4-46.3) fL RDW Coeff of Pepper (11.5-14.5) % Plt Count (130-400) K/uL MPV (9.4-12.4) fL Immature Gran % (Auto) % Neut % (Auto) % Lymph % (Auto) % Brantley % (Auto) % Eos % (Auto) % Baso % (Auto) % Neut # (Auto) (1.40-6.50) K/uL Lymph # (Auto) (1.20-3.40) K/uL Brantley # (Auto) (0.11-0.59) K/uL Eos # (Auto) (0.00-0.50) K/uL Baso # (Auto) (0.00-0.20) K/uL Immature Gran # (Auto) (0.01-0.20) K/uL ESR 73 H (0-30) mm/hr PT (9.0-12.0) Seconds INR (0.9-1.1) APTT (21.0-31.0) Seconds PTT Ratio Sodium 135 L (136-145) mmol/L Potassium 4.3 (3.5-5.1) mmol/L Chloride 101 (98-107) mmol/L Carbon Dioxide 23 (21-32) mmol/L Anion Gap 11 (3-11) BUN 25 H (6-23) mg/dl Creatinine 1.13 (0.6-1.2) mg/dl Est Cr Clr Drug Dosing Not Reportable Est GFR ( Amer) 54.7 ml/min Est GFR (Non-Af Amer) 47.2 ml/min BUN/Creatinine Ratio 22.1 H (10-20) Glucose 104 H (70-99(Fasting)) mg/dl Lactate (0.4-2.0) mmol/L Calcium 8.9 (8.6-10.3) mg/dl Magnesium 1.3 L (1.7-2.4) mg/dl Total Bilirubin 0.5 (0.2-1.0) mg/dl AST 13 (13-39) U/L ALT 10 (7-52) U/L Alkaline Phosphatase 182 H (34-104) U/L Troponin I High Sens 16.6 H (0-14) pg/ml C-Reactive Protein 8.85 H (0-0.5) mg/dl Total Protein 7.1 (6.0-8.3) gm/dl Albumin 3.7 (3.4-5.0) gm/dl Globulin 3.4 (2.5-4.0) gm/dl Albumin/Globulin Ratio 1.1 (0.9-2) Procalcitonin 0.12 (0-0.5) ng/ml Administered Medications Piperacillin Sod/Tazobactam (Sod 4.5 gm/ Dextrose) 120 mls @ 30 mls/hr IV [facility]; Protocol Stop: 02/18/23 15:59 Last Admin: 02/11/23 16:34 Dose: 30 mls/hr Documented By: NUNU Magnesium Sulfate/Dextrose (Magnesium Sulfate / D5w) 1 gm in 100 mls @ 50 mls/hr IV Q2H ANANTH Stop: 02/11/23 19:05 Last Admin: 02/11/23 16:39 Dose: 50 mls/hr Documented By: Infusion: 02/11/23 16:33 Dose: 0 mls/hr Documented By: Admin: 02/11/23 14:35 Dose: 50 mls/hr Documented By: NUNU Insulin Aspart (Insulin Aspart Per Unit Charge) 0 units SC ACHS ANANTH Stop: 03/13/23 13:05 Last Admin: 02/11/23 13:15 Dose: Not Given Documented By: NUNU Discontinued Medications Acetaminophen (Acetaminophen 500 Mg Tab) 1,000 mg PO NOW STA Stop: 02/11/23 10:42 Last Admin: 02/11/23 10:53 Dose: 1,000 mg Documented By: GALINA Piperacillin Sod/Tazobactam Sod (Zosyn) 4.5 gm in 120 mls @ 240 mls/hr IV NOW STA Stop: 02/11/23 11:10 Last Infusion: 02/11/23 11:38 Dose: 0 mls/hr Documented By: Admin: 02/11/23 10:54 Dose: 240 mls/hr Documented By: GALINA Sodium Chloride (Nss) 1,000 mls @ 999 mls/hr IV .Q1H1M ONE Stop: 02/11/23 11:40 Last Infusion: 02/11/23 11:55 Dose: 0 mls/hr Documented By: Admin: 02/11/23 10:54 Dose: 999 mls/hr Documented By: GALINA Magnesium Sulfate/Dextrose (Magnesium Sulfate / D5w) 1 gm in 100 mls @ 100 mls/hr IV NOW STA Stop: 02/11/23 12:01 Last Infusion: 02/11/23 12:44 Dose: 0 mls/hr Documented By: Admin: 02/11/23 11:44 Dose: 100 mls/hr Documented By: NUNU Daptomycin 200 mg/ Syringe 4 mls @ 0 mls/min IV NOW STA; Protocol Stop: 02/11/23 11:00 Last Admin: 02/11/23 11:43 Dose: 2 mls/min Documented By: NUNU Trimethoprim/Sulfamethoxazole (Sulfamethoxazole/Trimethoprim Ds 800/160mg Tab) 1 tab PO NOW STA Stop: 02/11/23 10:43 Last Admin: 02/11/23 10:53 Dose: 1 tab Documented By: NRB Imaging Data Radiologist's Impression: Chest X-Ray 02/11/23 09:23 XR chest 1V not portable CLINICAL HISTORY: Sepsis. COMPARISON STUDY: Chest CT July 25, 2018. Chest radiograph December 20, 2022. FINDINGS: Lung volumes are normal. Lungs are clear. There is no pneumothorax or pleural effusion. Cardiac size is normal. Mediastinal contours are normal. There is no evidence for pulmonary edema. Bilateral axillary calcifications are unchanged. IMPRESSION: No acute cardiopulmonary findings. ACT 112: Negative or not required by law. Electronically signed by: Wing Coughlin M.D. 02/11/2023 10:14 AM Foot X-Ray 02/11/23 10:47 XR foot LT min 3V routine HISTORY: 77 years-old Female post amputation wound infection. wound vac status post partial amputation of the left foot COMPARISON: 12/28/2022 TECHNIQUE: 3 views of the left foot FINDINGS: Demineralized appearance of the bones. Moderate osteoarthritis. Status post a mputation of the forefoot at the level of the mid diaphyseal metatarsals. Some centimeter radiodense foci projecting over the amputation stump suggestive of probable bone fragments. Moderate soft tissue swelling with deep tissue air.. A wound VAC is present. No acute fracture, dislocation or osseus identified. IMPRESSION: Status post amputation of the forefoot at the level of the middiaphyseal metatarsals. Soft tissue swelling with deep tissue air and subcentimeter bone fragments are likely expected postoperative changes. ACT 112: Negative or not required by law. The above report was generated using voice recognition software. It may contain grammatical, syntax or spelling errors. Electronically signed by: Milton Bell M.D. 02/11/2023 11:12 AM Discharge Plan Visit Data Chief Complaint: Illness Stated Complaint: NAUSEA, SHAKING, POSSIBLE INFECTION ED Provider: Henri Simth Discharge Problem: Sepsis Patient Disposition: Admitted As Inpatient Discharge Instructions Interventions: ED Discharge Assessment Last Done: 02/11/23 13:05
[2023-02-11] MEDS ORDERED: NIFEdipine EXTENDED REL 30 MG TABCR PO SCH (21:00)
[2023-02-11] MEDS: SULFAMETHOXAZOLE/TRIMETHOPRIM DS 800/160MG TAB PO SCH (21:02)
[2023-02-11] MEDS: CHOLECALCIFEROL 1,000 UNITS 25 MCG TAB PO SCH (21:03)
[2023-02-11] MEDS: PANTOprazole 40 MG TAB PO SCH (21:03)
[2023-02-11] MEDS: carvediloL 25 MG TAB PO SCH (21:03)
[2023-02-11] MEDS: ENOXAPARIN INJ 40 MG/0.4 ML SYR SQ SCH (21:03)
[2023-02-11] MEDS: DOCUSATE SODIUM 100 MG CAP PO SCH (21:03)
[2023-02-11] MEDS: LANTUS PER UNIT CHARGE SQ SCH (21:06)
[2023-02-11] MEDS ORDERED: INSULIN ASPART PER UNIT CHARGE SQ ONE (23:12)
[2023-02-12] MEDS ORDERED: Nursing to Pharmacy Communication SCH ×2 (01:15→13:15)
[2023-02-12] MEDS ORDERED: MoRPHine SULFATE 2 MG/ML CARP IV STA (02:21)
[2023-02-12 02:27] LABS: Appearance Urine Clear (Clear); Bacteria Urine Automated Negative (Negative); Bilirubin Urine Negative (Negative); Blood Urine Negative (Negative); Color Urine Yellow; Epithelial Cell Urine Auto 20-30 /lpf (0-5); Glucose Urine UA 1+ (Negative); Ketones Urine Negative (Negative); Leukocyte Esterase Urine 2+ (Negative); Nitrite Urine Negative (Negative); Protein Urine 1+ (Negative); RBC Urine Automated 0-4 /hpf (0-4); Specific Gravity Urine 1.016 (1.000-1.030); Urobilinogen Urine Negative (Negative); pH Urine 5.5 (4.5-7.5)
[2023-02-12] MEDS: DEXTROSE 50% 50 ML SYRINGE IV PRN ×2 (02:46→04:16)
[2023-02-12] MEDS ORDERED: ACETAMINOPHEN 1,000 MG/100 ML VIAL IV STA (03:09)
[2023-02-12] MEDS ORDERED: DEXTROSE 5% 500 ML IV SCH (04:30)
[2023-02-12] MEDS: INSULIN ASPART PER UNIT CHARGE SC SCH ×4 (06:02→21:09)
[2023-02-12] MEDS: LEVOTHYROXINE SODIUM 100 MCG TABLET PO SCH (06:04)
[2023-02-12] MEDS: SPIRONOLACTONE 25 MG TAB PO SCH (08:06)
[2023-02-12] MEDS: DOCUSATE SODIUM 100 MG CAP PO SCH ×2 (08:07→21:22)
[2023-02-12] MEDS: CLOPIDOGREL BISULFATE 75 MG TAB PO SCH (08:07)
[2023-02-12] MEDS: FLUTICASONE/VILANTEROL 200/25MCG 14 PUFFS/INHALER INH SCH (08:08)
[2023-02-12] MEDS: SULFAMETHOXAZOLE/TRIMETHOPRIM DS 800/160MG TAB PO SCH ×2 (08:08→21:16)
[2023-02-12 08:28] LABS: Basophils # (auto) 0.02 K/uL (0.00-0.20); Basophils % (auto) 0.2 %; Eosinophils # (auto) 0.12 K/uL (0.00-0.50); Eosinophils % (auto) 1.4 %; Hematocrit (blood only) 28.4 % (37.0-47.0); Hemoglobin 9.3 g/dl (12.0-16.0); Immature Granulocytes # (auto) 0.04 K/uL (0.01-0.20); Immature Granulocytes % (auto) 0.5 %; Lymphocytes # (auto) 1.63 K/uL (1.20-3.40); Lymphocytes % (auto) 19.6 %; Mean Corpuscular Hemoglobin 29.2 pg (25.0-34.0); Mean Corpuscular Hgb Conc 32.7 g/dL (32.0-36.0); Mean Platelet Volume 11.1 fL (9.4-12.4); Monocytes # (auto) 0.49 K/uL (0.11-0.59); Monocytes % (auto) 5.9 %; Neutrophils % (auto) 72.4 %; Platelet Count 256 K/uL (130-400); RDW Coefficient of Variation 13.5 % (11.5-14.5); RDW Standard Deviation 44.5 fL (36.4-46.3); Red Blood Count 3.19 M/uL (4.20-5.40)
[2023-02-12] MEDS: PIPERACILLIN/TAZOBACTAM 4.5 GM in DEXTROSE 5% 100 ML IV SCH ×2 (08:37→16:22)
[2023-02-12] MEDS ORDERED: ONDANSETRON INJ 2 MG/ML 2 ML VIAL IV PRN (08:41)
[2023-02-12 08:43] LABS: BUN Creatinine Ratio 15.2 (10-20); Calcium 8.3 mg/dl (8.6-10.3); Creatinine Clr Calc Pharmacy 32.7 ml/min; Est GFR (African American) 48.4 ml/min; Est GFR (Non-African American) 41.8 ml/min; Magnesium 2.2 mg/dl (1.7-2.4); Potassium 3.8 mmol/L (3.5-5.1)
[2023-02-12] MEDS ORDERED: LOSARTAN POTASSIUM 50 MG TAB PO SCH (09:00)
[2023-02-12] MEDS: carvediloL 25 MG TAB PO SCH ×2 (09:14→21:15)
--- NOTE | 2023-02-12 09:43 | Infectious Disease Consult ---
Date of Consultation February 12, 2023 Assessment & Plan (1) Dehiscence of amputation stump of left lower extremity: (2) PAD (peripheral artery disease): (3) Diabetes: (4) Sepsis: Plan 77 year old female with CAD s/p CEA, CARMELITA and renal ca s/p right nephrectomy in 2012, CKD Cr 1.3-1.5, peripheral artery disease, right BKA and left foot TMA on 01/09/23 which immediately dehiscedwith attempted closure after debridement in the office on 01/16 c/b further dehiscence after suture removal and wound vac placement presented to ED on 02/11 with foot pain and fevers. Patient previously underwent LLE angiography with stent placement on 12/24/22, following this she had the L foot TMA on 01/09/23. OR cultures during that time grew Stenotrophomonas maltophilia (S levofloxacin and Bactrim) and Trevor albicans/dubliniensis. Readmitted to [facility] 01/30-02/01. 01/30 Blood cultures no growth 01/30 wound cultures Moderate counts mixed probable skin microbiota. Evaluated by vascular during that time no intervention. Wound did not appear infected and patient was not dcd on antibiotics. On admission, Xray L foot Status post amputation of the forefoot at the level of the middiaphyseal metatarsals. Soft tissue swelling with deep tissue air and subcentimeter bone fragments are likely expected postoperative changes. No osteo. No gas. WBC 13, platelets 309, Cr 1.13 #L foot dehiscence with wound infection #R BKA # CKD, s/p nephrectomy #DM #PAD MICRO 01/09/23 L TMA OR cultures Stenotrophomonas maltophilia (S levofloxacin and Bactrim) and Trevor albicans/dubliniensis 01/11 Blood cx P ABX Zosyn Daptomycin Bactrim RECOMMEND: Patient has h/o MRSA would continue with Daptomycin (off statin, CPK level to be checked) C/W zosyn for gram neg and anaerobic coverage C/W bactrim for stenotrophamonas growth previously, monitor cr closely Would not cover prior trevor has likely nonpathogenic Await Podiatry recommendations Please reconsult vascular given ongoing wound dehiscence and h/o PAD Thank you for this consult, ID will follow Flaca Santacruz MD Infectious Diseases Consultation Information This patient recommendation is based on a telemedicine consult request which was completed asynchronously through chart review and information provided by the primary physician. The patient was not seen or examined today. The evaluation is consultative in nature and all patient care and treatment decisions can either be accepted or rejected by the patient's primary hospital-based treating physician using their own independent medical judgment for their patient. Home Builder contact information: Please call [facility] Center . (Phone Number For Physician Use Only) Time Spent Reviewing Chart: 31+ minutes History of Present Illness Reason for Consultation: L foot infection Requesting Physician: Dr. Wood Attending Physician: Edgar Wood MD History of Present Illness 77 year old female with CAD s/p CEA, CARMELITA and renal ca s/p right nephrectomy in 2012, CKD Cr 1.3-1.5, peripheral artery disease, right BKA and left foot TMA on 01/09/23 which immediately dehiscedwith attempted closure after debridement in the office on 01/16 c/b further dehiscence after suture removal and wound vac placement presented to ED on 02/11 with foot pain and fevers. Patient previously underwent LLE angiography with stent placement on 12/24/22, following this she had the L foot TMA on 01/09/23. OR cultures during that time grew Stenotrophomonas maltophilia (S levofloxacin and Bactrim) and Trevor albicans/dubliniensis. Readmitted to [facility] 01/30-02/01. 01/30 Blood cultures no growth 01/30 wound cultures Moderate counts mixed probable skin microbiota. Evaluated by vascular during that time no intervention. Wound did not appear infected and patient was not dcd on antibiotics. On admission, Xray L foot Status post amputation of the forefoot at the level of the middiaphyseal metatarsals. Soft tissue swelling with deep tissue air and subcentimeter bone fragments are likely expected postoperative changes. No osteo. No gas. WBC 13, platelets 309, Cr 1.13 ID consulted for antibiotic management. Allergies Allergy/AdvReac Type Severity Reaction Status Date / Time enflurane Allergy Severe NAUSEA, Verified 02/11/23 11:37 jaundiced Iodinated Contrast Media Allergy Intermediate HIVES - Verified 02/11/23 11:37 IVP DYE CHECO Inhibitors Allergy Mild hives Verified 02/11/23 11:37 nickel Allergy Mild REDNESS Verified 02/11/23 11:37 AND ITCHING liraglutide [From Victoza] AdvReac Mild SEVERE Verified 02/11/23 11:37 NAUSEA Home Medications Medication Instructions Recorded Confirmed Type glucagon HCl 1 mg solution for 1 mg subcut Q20M PRN hypoglycemia 06/29/21 02/11/23 Rx injection (Glucagon (HCl) #1 ea Emergency Kit) insulin lispro 100 unit/mL 1 sliding scale dose subcut 02/16/22 02/11/23 History subcutaneous solution (Humalog USEASDIRECTD U-100 Insulin) atorvastatin 80 mg tablet 80 mg PO QPM #90 tabs 02/23/22 02/11/23 Rx cholecalciferol (vitamin D3) 25 1,000 unit PO HS 06/19/22 02/11/23 History mcg (1,000 unit) capsule (Vitamin D3) clopidogrel 75 mg tablet (Plavix) 75 mg PO QAM #90 tabs 07/12/22 02/11/23 Rx nifedipine 60 mg tablet,extended 60 mg PO HS #90 tabs 10/31/22 02/11/23 Rx release mometasone-formoterol HFA 200 2 puff inhalation BID PRN 12/20/22 02/11/23 History mcg-5 mcg/actuation aerosol Shortness Of Breath inhaler (Dulera) ferrous gluconate 324 mg (37.5 mg 324 mg PO DAILY #30 tabs 01/03/23 02/11/23 Rx iron) tablet carvedilol 25 mg tablet (Coreg) 25 mg PO BID #180 tabs 01/23/23 02/11/23 Rx levothyroxine 100 mcg tablet 100 mcg PO DAILY #90 tabs 01/23/23 02/11/23 Rx losartan 100 mg tablet (Cozaar) 100 mg PO QAM #90 tabs 01/23/23 02/11/23 Rx omeprazole 20 mg capsule,delayed 20 mg PO HS #90 caps 01/23/23 02/11/23 Rx release docusate sodium 100 mg capsule 100 mg PO BID 02/05/23 02/11/23 History (Dulcolax Stool Softener (docusate)) spironolactone 25 mg tablet 50 mg PO DAILY 02/05/23 02/11/23 History nystatin 100,000 unit/gram topical 1 applic topical BID #60 grams 02/06/23 02/11/23 Rx powder insulin detemir U-100 100 unit/mL 15 unit subcut HS 02/11/23 02/11/23 History subcutaneous solution (Levemir U-100 Insulin) Patient History Medical History Anemia CHRONIC; BASELINE HGB STABLE AT 9-10 RANGE PER CHART REVIEW Asthma CONTROLLED/LAST USE OF INHALER "A LONG TIME AGO" Below-knee amputation of right lower extremity Carotid artery stenosis S/P LEFT (2002), RIGHT (1995) Cerebral aneurysm Chronic kidney disease STAGE III - FOLLOWS WITH NEPHRO- CREATINE USUALLY 1.3-1.5 Conductive hearing loss of right ear Constipation CREST syndrome Deep vein thrombosis RLE DVT DX'D 01/2018; CHRONIC-- ON XARELTO BID (PCP/VASCULAR MONITORING) Diabetes IDDM Diabetic foot ulcer Diverticular disease Gangrene due to arterial insufficiency left foot GERD (gastroesophageal reflux disease) History of COVID-19 12/20/22 [facility] - no symptoms History of MRSA infection April 2017 (right foot - has since been amputated) --> no active infection. Hx of carotid stenosis BOTH SIDES - HAD LEFT CEA 2002 AND RIGHT CEA 1995 Hx of deep venous thrombosis 2017 R LE Hx of renal cell cancer R RENAL (2012) S/P R NEPHRECTOMY - NO RADIATION NO CHEMO Hyperkalemia Hyperlipidemia Hypertension Hypertensive urgency Hypothyroidism Left carpal tunnel syndrome Occlusion and stenosis of carotid artery with cerebral infarction On anticoagulant therapy Osteoporosis Otalgia, left ear PAD (peripheral artery disease) Pressure ulcer of right foot, stage 2 Raynauds syndrome Renal artery stenosis RIGHT KIDNEY STENT ATTEMPTED 2010; S/P RIGHT NEPHRECTOMY 2012 Right lumbar radiculitis S/P angiogram of extremity left leg Scleroderma TMJ derangement Tympanic membrane perforation Vertigo Surgical History H/O carotid endarterectomy LEFT (2002), RIGHT (1995) H/O sinus surgery History of amputation of lesser toe of right foot MULTIPLE TOE AMPUTATIONS/I&D (ALL RT TOES) History of angioplasty MULTIPLE OF LE'S WITH STENTS TO LOWER EXTREMITIES PLACED History of appendectomy History of atherectomy LEFT (02/2017) History of cardiac cath 2011= NO STENTS (C) History of carpal tunnel surgery RIGHT HAND, TRIGGER RIGHT FINGER History of cataract surgery RT/LEFT History of cholecystectomy History of colonoscopy History of endoscopic sinus surgery History of esophagogastroduodenoscopy (EGD) History of hysterectomy MERYL W/ BSO History of left breast biopsy 1998 History of nephrectomy RIGHT (2012) History of oophorectomy B/L OVARIES History of procedure for peripheral vascular disease LEFT POPLITEAL S/P PERONEAL ARTERY BYPASS 2012; RLE ANGIO WITH INTERVENTION 06/2017 History of tonsillectomy Hx of lumpectomy LEFT BREAST (BENIGN) Nausea and vomiting after administration of anesthetic agent S/P amputation right Below the knee amputation Family History Father Family hx of colon cancer Family history of diabetes mellitus Mother Lung cancer Stroke Unknown Rheumatoid arthritis Other No family history of adverse response to anesthesia No family history of bleeding disorder Social History Smoking Status: Never smoker Second Hand Exposure: No; Do You Dip or Chew Tobacco: No; Hx Alcohol Use: No Hx Substance Use: No Preferred Language: Cook Islander Communication Ability: Effective Visual Impairment: No Limitations Hearing Ability: Normal Screw Supervisor Required: No Beliefs That Will Affect Care: None marital status: Current Living Situation: Spouse current occupational status: retired How many Children do You have: 0 How many Children do You have Comment: able to assist with care as needed. Other Information That Helps Us Care for You: No Feels Safe at Home: Yes Safety Concerns: Feels Safe At This Time Diet: diabetic during the past year weight has: decreased > 10 lbs Seatbelt Use: always Do you think of yourself as: straight/heterosexual Gender Identity: Female Assistive Devices: Cane, Prosthesis, Walker and Wheelchair Results & Data Vital Signs (Past 12 Hours) Vital Signs Temp Pulse Resp BP Pulse Ox O2 Del Method 02/12/23 09:15 56 L 02/12/23 08:01 36.5 C 56 L 17 157/54 H 99 Room Air Laboratory Results Laboratory Results - last 48 hr 02/11/23 02/11/23 02/11/23 09:43 09:43 09:43 WBC 13.23 H RBC 3.35 L Hgb 9.7 L Hct 29.6 L MCV 88.4 MCH 29.0 MCHC 32.8 RDW Std Deviation 44.2 RDW Coeff of Pepper 13.6 Plt Count 309 MPV 10.9 Immature Gran % (Auto) 0.5 Neut % (Auto) 87.6 Lymph % (Auto) 7.3 [place] % (Auto) 3.8 Eos % (Auto) 0.6 Baso % (Auto) 0.2 Neut # (Auto) 11.60 H Lymph # (Auto) 0.97 L [place] # (Auto) 0.50 Eos # (Auto) 0.08 Baso # (Auto) 0.02 Immature Gran # (Auto) 0.06 ESR PT 11.6 INR 1.1 APTT 31.1 H PTT Ratio 1.1 Sodium Potassium Chloride Carbon Dioxide Anion Gap BUN Creatinine Est Cr Clr Drug Dosing Est GFR ( Amer) Est GFR (Non-Af Amer) BUN/Creatinine Ratio Glucose POC Glucose Lactate 2.2 H* Calcium Magnesium Total Bilirubin AST ALT Alkaline Phosphatase Troponin I High Sens C-Reactive Protein Total Protein Albumin Globulin Albumin/Globulin Ratio Procalcitonin Urine Color Urine Appearance Urine pH Ur Specific Viola Urine Protein Urine Glucose (UA) Urine Ketones Urine Blood Urine Nitrite Urine Bilirubin Urine Urobilinogen Ur Leukocyte Esterase Urine WBC (Auto) Urine RBC (Auto) U Hyaline Cast (Auto) U Epithel Cells (Auto) Urine Bacteria (Auto) 02/11/23 02/11/23 02/11/23 09:43 09:43 09:43 WBC RBC Hgb Hct MCV MCH MCHC RDW Std Deviation RDW Coeff of Pepper Plt Count MPV Immature Gran % (Auto) Neut % (Auto) Lymph % (Auto) [place] % (Auto) Eos % (Auto) Baso % (Auto) Neut # (Auto) Lymph # (Auto) [place] # (Auto) Eos # (Auto) Baso # (Auto) Immature Gran # (Auto) ESR 73 H PT INR APTT PTT Ratio Sodium 135 L Potassium 4.3 Chloride 101 Carbon Dioxide 23 Anion Gap 11 BUN 25 H Creatinine 1.13 Est Cr Clr Drug Dosing Not Reportable Est GFR ( Amer) 54.7 Est GFR (Non-Af Amer) 47.2 BUN/Creatinine Ratio 22.1 H Glucose 104 H POC Glucose Lactate Calcium 8.9 Magnesium 1.3 L Total Bilirubin 0.5 AST 13 ALT 10 Alkaline Phosphatase 182 H Troponin I High Sens 16.6 H C-Reactive Protein 8.85 H Total Protein 7.1 Albumin 3.7 Globulin 3.4 Albumin/Globulin Ratio 1.1 Procalcitonin 0.12 Urine Color Urine Appearance Urine pH Ur Specific Viola Urine Protein Urine Glucose (UA) Urine Ketones Urine Blood Urine Nitrite Urine Bilirubin Urine Urobilinogen Ur Leukocyte Esterase Urine WBC (Auto) Urine RBC (Auto) U Hyaline Cast (Auto) U Epithel Cells (Auto) Urine Bacteria (Auto) 02/11/23 02/11/23 02/11/23 11:59 13:34 18:05 WBC RBC Hgb Hct MCV MCH MCHC RDW Std Deviation RDW Coeff of Pepper Plt Count MPV Immature Gran % (Auto) Neut % (Auto) Lymph % (Auto) [place] % (Auto) Eos % (Auto) Baso % (Auto) Neut # (Auto) Lymph # (Auto) [place] # (Auto) Eos # (Auto) Baso # (Auto) Immature Gran # (Auto) ESR PT INR APTT PTT Ratio Sodium Potassium Chloride Carbon Dioxide Anion Gap BUN Creatinine Est Cr Clr Drug Dosing Est GFR ( Amer) Est GFR (Non-Af Amer) BUN/Creatinine Ratio Glucose POC Glucose 142 H 328 H* Lactate 1.2 Calcium Magnesium Total Bilirubin AST ALT Alkaline Phosphatase Troponin I High Sens C-Reactive Protein Total Protein Albumin Globulin Albumin/Globulin Ratio Procalcitonin Urine Color Urine Appearance Urine pH Ur Specific Viola Urine Protein Urine Glucose (UA) Urine Ketones Urine Blood Urine Nitrite Urine Bilirubin Urine Urobilinogen Ur Leukocyte Esterase Urine WBC (Auto) Urine RBC (Auto) U Hyaline Cast (Auto) U Epithel Cells (Auto) Urine Bacteria (Auto) 02/11/23 02/11/23 02/12/23 21:03 22:52 00:56 WBC RBC Hgb Hct MCV MCH MCHC RDW Std Deviation RDW Coeff of Pepper Plt Count MPV Immature Gran % (Auto) Neut % (Auto) Lymph % (Auto) [place] % (Auto) Eos % (Auto) Baso % (Auto) Neut # (Auto) Lymph # (Auto) [place] # (Auto) Eos # (Auto) Baso # (Auto) Immature Gran # (Auto) ESR PT INR APTT PTT Ratio Sodium Potassium Chloride Carbon Dioxide Anion Gap BUN Creatinine Est Cr Clr Drug Dosing Est GFR ( Amer) Est GFR (Non-Af Amer) BUN/Creatinine Ratio Glucose POC Glucose 334 H* 310 H* 145 H Lactate Calcium Magnesium Total Bilirubin AST ALT Alkaline Phosphatase Troponin I High Sens C-Reactive Protein Total Protein Albumin Globulin Albumin/Globulin Ratio Procalcitonin Urine Color Urine Appearance Urine pH Ur Specific Viola Urine Protein Urine Glucose (UA) Urine Ketones Urine Blood Urine Nitrite Urine Bilirubin Urine Urobilinogen Ur Leukocyte Esterase Urine WBC (Auto) Urine RBC (Auto) U Hyaline Cast (Auto) U Epithel Cells (Auto) Urine Bacteria (Auto) 02/12/23 02/12/23 02/12/23 02:15 02:42 03:00 WBC RBC Hgb Hct MCV MCH MCHC RDW Std Deviation RDW Coeff of Pepper Plt Count MPV Immature Gran % (Auto) Neut % (Auto) Lymph % (Auto) [place] % (Auto) Eos % (Auto) Baso % (Auto) Neut # (Auto) Lymph # (Auto) [place] # (Auto) Eos # (Auto) Baso # (Auto) Immature Gran # (Auto) ESR PT INR APTT PTT Ratio Sodium Potassium Chloride Carbon Dioxide Anion Gap BUN Creatinine Est Cr Clr Drug Dosing Est GFR ( Amer) Est GFR (Non-Af Amer) BUN/Creatinine Ratio Glucose POC Glucose 57 L* 124 H Lactate Calcium Magnesium Total Bilirubin AST ALT Alkaline Phosphatase Troponin I High Sens C-Reactive Protein Total Protein Albumin Globulin Albumin/Globulin Ratio Procalcitonin Urine Color Yellow Urine Appearance Clear Urine pH 5.5 Ur Specific Viola 1.016 Urine Protein 1+ H Urine Glucose (UA) 1+ H Urine Ketones Negative Urine Blood Negative Urine Nitrite Negative Urine Bilirubin Negative Urine Urobilinogen Negative Ur Leukocyte Esterase 2+ H Urine WBC (Auto) 10-30 H Urine RBC (Auto) 0-4 U Hyaline Cast (Auto) 1-5 U Epithel Cells (Auto) 20-30 H Urine Bacteria (Auto) Negative 02/12/23 02/12/23 02/12/23 04:09 04:25 06:00 WBC RBC Hgb Hct MCV MCH MCHC RDW Std Deviation RDW Coeff of Pepper Plt Count MPV Immature Gran % (Auto) Neut % (Auto) Lymph % (Auto) [place] % (Auto) Eos % (Auto) Baso % (Auto) Neut # (Auto) Lymph # (Auto) [place] # (Auto) Eos # (Auto) Baso # (Auto) Immature Gran # (Auto) ESR PT INR APTT PTT Ratio Sodium Potassium Chloride Carbon Dioxide Anion Gap BUN Creatinine Est Cr Clr Drug Dosing Est GFR ( Amer) Est GFR (Non-Af Amer) BUN/Creatinine Ratio Glucose POC Glucose 68 L* 138 H 139 H Lactate Calcium Magnesium Total Bilirubin AST ALT Alkaline Phosphatase Troponin I High Sens C-Reactive Protein Total Protein Albumin Globulin Albumin/Globulin Ratio Procalcitonin Urine Color Urine Appearance Urine pH Ur Specific [place]ola Urine Protein Urine Glucose (UA) Urine Ketones Urine Blood Urine Nitrite Urine Bilirubin Urine Urobilinogen Ur Leukocyte Esterase Urine WBC (Auto) Urine RBC (Auto) U Hyaline Cast (Auto) U Epithel Cells (Auto) Urine Bacteria (Auto) 02/12/23 02/12/23 07:46 07:46 WBC 8.30 RBC 3.19 L Hgb 9.3 L Hct 28.4 L MCV 89.0 MCH 29.2 MCHC 32.7 RDW Std Deviation 44.5 RDW Coeff of Pepper 13.5 Plt Count 256 MPV 11.1 Immature Gran % (Auto) 0.5 Neut % (Auto) 72.4 Lymph % (Auto) 19.6 [place] % (Auto) 5.9 Eos % (Auto) 1.4 Baso % (Auto) 0.2 Neut # (Auto) 6.00 Lymph # (Auto) 1.63 [place] # (Auto) 0.49 Eos # (Auto) 0.12 Baso # (Auto) 0.02 Immature Gran # (Auto) 0.04 ESR PT INR APTT PTT Ratio Sodium 134 L Potassium 3.8 Chloride 104 Carbon Dioxide 23 Anion Gap 7 BUN 19 Creatinine 1.25 H Est Cr Clr Drug Dosing 32.7 Est GFR ( Amer) 48.4 Est GFR (Non-Af Amer) 41.8 BUN/Creatinine Ratio 15.2 Glucose 161 H POC Glucose Lactate Calcium 8.3 L Magnesium 2.2 Total Bilirubin AST ALT Alkaline Phosphatase Troponin I High Sens C-Reactive Protein Total Protein Albumin Globulin Albumin/Globulin Ratio Procalcitonin Urine Color Urine Appearance Urine pH Ur Specific [place]ola Urine Protein Urine Glucose (UA) Urine Ketones Urine Blood Urine Nitrite Urine Bilirubin Urine Urobilinogen Ur Leukocyte Esterase Urine WBC (Auto) Urine RBC (Auto) U Hyaline Cast (Auto) U Epithel Cells (Auto) Urine Bacteria (Auto) Diagnostic Findings Chest X-Ray 02/11/23 09:23 XR chest 1V not portable CLINICAL HISTORY: Sepsis. COMPARISON STUDY: Chest CT July 25, 2018. Chest radiograph December 20, 2022. FINDINGS: Lung volumes are normal. Lungs are clear. There is no pneumothorax or pleural effusion. Cardiac size is normal. Mediastinal contours are normal. There is no evidence for pulmonary edema. Bilateral axillary calcifications are unchanged. IMPRESSION: No acute cardiopulmonary findings. ACT 112: Negative or not required by law. Electronically signed by: Wing Coughlin M.D. 02/11/2023 10:14 AM Foot X-Ray 02/11/23 10:47 XR foot LT min 3V routine HISTORY: 77 years-old Female post amputation wound infection. wound vac status post partial amputation of the left foot COMPARISON: 12/28/2022 TECHNIQUE: 3 views of the left foot FINDINGS: Demineralized appearance of the bones. Moderate osteoarthritis. Status post amputation of the forefoot at the level of the mid diaphyseal metatarsals. Some centimeter radiodense foci projecting over the amputation stump suggestive of probable bone fragments. Moderate soft tissue swelling with deep tissue air.. A wound VAC is present. No acute fracture, dislocation or osseus identified. IMPRESSION: Status post amputation of the forefoot at the level of the middiaphyseal metatarsals. Soft tissue swelling with deep tissue air and subcentimeter bone fragments are likely expected postoperative changes. ACT 112: Negative or not required by law. The above report was generated using voice recognition software. It may contain grammatical, syntax or spelling errors. Electronically signed by: Milton Bell M.D. 02/11/2023 11:12 AM Medications Administered Current Inpatient Medications Carvedilol (Carvedilol 25 Mg Tab) 25 mg PO BID [facility] Stop: 03/13/23 20:59 Last Admin: 02/12/23 09:14 Dose: Not Given Clopidogrel Bisulfate (Clopidogrel Bisulfate 75 Mg Tab) 75 mg PO QAM ANANTH Stop: 03/14/23 08:59 Last Admin: 02/12/23 08:07 Dose: 75 mg Dextrose (Dextrose 50% 50 Ml Syringe) 25 - 50 ml IV UD PRN; Protocol PRN Reason: Hypoglycemia Protocol Stop: 03/13/23 13:05 Last Admin: 02/12/23 04:16 Dose: 25 ml Docusate Sodium (Docusate Sodium 100 Mg Cap) 100 mg PO BID ANANTH Stop: 03/13/23 20:59 Last Admin: 02/12/23 08:07 Dose: 100 mg Enoxaparin Sodium (Enoxaparin Inj 40 Mg/0.4 Ml Syr) 40 mg SQ QPM ANANTH Stop: 03/13/23 20:59 Last Admin: 02/11/23 21:03 Dose: 40 mg Fluticasone/Vilanterol (Fluticasone/Vilanterol 200/25mcg 14 Puffs/Inhaler) 1 puffs INH DAILY ANANTH Stop: 03/14/23 08:59 Last Admin: 02/12/23 08:08 Dose: Not Given Glucagon (Glucagon For Inj 1 Mg Vial) 1 mg SQ UD PRN; Protocol PRN Reason: Hypoglycemia Protocol Stop: 03/13/23 13:05 Glucose (Glucose 10 Tab/Tube) 4 - 8 tab PO UD PRN; Protocol PRN Reason: Hypoglycemia Treatment Stop: 03/13/23 13:05 Glucose (Glucose 40% Gel 15 Gm Tube) 15 - 30 gm PO UD PRN; Protocol PRN Reason: Hypoglycemia Protocol Stop: 03/13/23 13:05 Piperacillin Sod/Tazobactam (Sod 4.5 gm/ Dextrose) 120 mls @ 30 mls/hr IV Q8H [facility]; Protocol Stop: 02/18/23 15:59 Last Admin: 02/12/23 08:37 Dose: 30 mls/hr Daptomycin 225 mg/ Syringe 4.5 mls @ 2.25 mls/min IV Q24H [facility]; Protocol Stop: 02/19/23 11:59 Insulin Aspart (Insulin Aspart Per Unit Charge) 0 units SC Q6 ANANTH Stop: 03/14/23 05:59 Last Admin: 02/12/23 06:02 Dose: Not Given Insulin Glargine (Lantus Per Unit Charge) 15 units SQ HS [facility] Stop: 03/13/23 20:59 Last Admin: 02/11/23 21:06 Dose: 15 units Levothyroxine Sodium (Levothyroxine Sodium 100 Mcg Tablet) 100 mcg PO DAILYBB [facility] Stop: 03/14/23 06:29 Last Admin: 02/12/23 06:04 Dose: 100 mcg Miscellaneous (Carbohydrates For Hypoglycemia ) 15 - 30 gm PO UD PRN PRN Reason: Hypoglycemia Protocol Stop: 03/13/23 13:05 Ondansetron HCl (Ondansetron Inj 2 Mg/Ml 2 Ml Vial) 4 mg IV Q6H PRN PRN Reason: Nausea And Vomiting Stop: 03/14/23 08:40 Last Admin: 02/12/23 09:13 Dose: 4 mg Pantoprazole Sodium (Pantoprazole 40 Mg Tab) 40 mg PO HS [facility] Stop: 03/13/23 20:59 Last Admin: 02/11/23 21:03 Dose: 40 mg Spironolactone (Spironolactone 25 Mg Tab) 50 mg PO DAILY ANANTH Stop: 03/14/23 08:59 Last Admin: 02/12/23 08:06 Dose: 50 mg Trimethoprim/Sulfamethoxazole (Sulfamethoxazole/Trimethoprim Ds 800/160mg Tab) 1 tab PO Q12 ANANTH Stop: 02/18/23 20:59 Last Admin: 02/12/23 08:08 Dose: 1 tab Vitamin D (Cholecalciferol 1,000 Units 25 Mcg Tab) 1,000 units PO HS [facility] Stop: 03/13/23 20:59 Last Admin: 02/11/23 21:03 Dose: 1,000 units
[2023-02-12] MEDS: DAPTOmycin 225 MG in SYRINGE 0 ML IV SCH (12:58)
[2023-02-12] MEDS ORDERED: oxyCODONE HCL IR 5 MG TAB (IMMEDIATE RELEASE) PO PRN (13:22)
[2023-02-12] MEDS: ACETAMINOPHEN 500 MG TAB PO PRN (13:49)
--- NOTE | 2023-02-12 19:26 | Hospitalist Progress Note ---
Date of Service February 12, 2023 Assessment & Plan (1) Sepsis: Plan: 2nd to infected left foot/TMA blood cx's remain negative appreciate ID consultation - zosyn/daptomycin/bactrim advised for now pending cultures (bactrim to cover stenotrophamonas) podiatry has seen by report - no surgical intervention advised; vascular consultation recommended (Dr Umana has seen during prior admission and performed angiogram LLE on 12/24/22) (2) Dehiscence of amputation stump of left lower extremity: Plan: Cont wound vac Appreciate podiatry consultation Await vascular consultation (3) Hypomagnesemia: Plan: replaced resolved mag level wnl today (4) Diabetes: Plan: Hemoglobin A1C 7.5% in December Continue Lantus 15 units HS Continue Novolog - --Goal BSG Range: Low 110 mg/dL, High 140 mg/dL --Correction Factor: 35 mg/dL/unit --Carbohydrate ratio = 12 g/unit --BSGs ACHS if eating, q6h if npo Insulin requirements and lability suggest type 1 DM physiology adjust basal-bolus as needed (5) PAD (peripheral artery disease): Plan: Continue clopidogrel Statin on hold due to daptomycin usage (6) Benign essential hypertension: Plan: BPs now running high on her usual coreg Add back losartan (7) Chronic GERD: Plan: Cont pantoprazole 40mg HS (8) Hypothyroidism: Plan: TSH WNL in September 2022 Continue current dose of levothyroxine (9) History of transmetatarsal amputation of left foot: Plan: 01/09/23 - Dr Natalio Balderas, podiatry Complicated by dehiscence & wound infection (10) Status post below knee amputation of right lower extremity: Plan: right BKA status no issues has prosthesis Plan VTE Prophylaxis - Lovenox 40mg SQ daily allow diet since no procedures planned for today Admission and Anticipated Discharge Date Admission Date: February 11, 2023 Subjective mild pain in left foot asked for tylenol for such saw podiatry early in the day - no plans for podiatric intervention; vascular surgery re-consult advised patient without other complaints Review of Systems Review of Systems: gen - no fevers cv - no chest pain, no orthopnea pulm - no dyspnea GI - no abd pain Physical Exam Physical Exam: gen - NAD, resting comfortably in bed mouth - MMM neck - no JVD heart - RRR, s1 s2 lungs - CTA b/l abd - soft NT ND BS+ ext - left leg/foot wrapped in dressings; these were not removed; right BKA vascular - pulses left foot at least 1+ (can feel them thru the dressings) psych - a/o x 3 Results & Data Results & Data Vital Signs (Past 12 Hours) Vital Signs Temp Pulse Resp BP Pulse Ox O2 Del Method 02/12/23 15:08 36.9 C 61 17 108/64 96 Room Air 02/12/23 09:15 56 L 02/12/23 08:01 36.5 C 56 L 17 157/54 H 99 Room Air Laboratory Results Laboratory Results - last 24 hr 02/11/23 02/11/23 02/12/23 21:03 22:52 00:56 WBC RBC Hgb Hct MCV MCH MCHC RDW Std Deviation RDW Coeff of Pepper Plt Count MPV Immature Gran % (Auto) Neut % (Auto) Lymph % (Auto) [place] % (Auto) Eos % (Auto) Baso % (Auto) Neut # (Auto) Lymph # (Auto) [place] # (Auto) Eos # (Auto) Baso # (Auto) Immature Gran # (Auto) Sodium Potassium Chloride Carbon Dioxide Anion Gap BUN Creatinine Est Cr Clr Drug Dosing Est GFR ( Amer) Est GFR (Non-Af Amer) BUN/Creatinine Ratio Glucose POC Glucose 334 H* 310 H* 145 H Calcium Magnesium Urine Color Urine Appearance Urine pH Ur Specific [place] Urine Protein Urine Glucose (UA) Urine Ketones Urine Blood Urine Nitrite Urine Bilirubin Urine Urobilinogen Ur Leukocyte Esterase Urine WBC (Auto) Urine RBC (Auto) U Hyaline Cast (Auto) U Epithel Cells (Auto) Urine Bacteria (Auto) 02/12/23 02/12/23 02/12/23 02:15 02:42 03:00 WBC RBC Hgb Hct MCV MCH MCHC RDW Std Deviation RDW Coeff of Pepper Plt Count MPV Immature Gran % (Auto) Neut % (Auto) Lymph % (Auto) [place] % (Auto) Eos % (Auto) Baso % (Auto) Neut # (Auto) Lymph # (Auto) [place] # (Auto) Eos # (Auto) Baso # (Auto) Immature Gran # (Auto) Sodium Potassium Chloride Carbon Dioxide Anion Gap BUN Creatinine Est Cr Clr Drug Dosing Est GFR ( Amer) Est GFR (Non-Af Amer) BUN/Creatinine Ratio Glucose POC Glucose 57 L* 124 H Calcium Magnesium Urine Color Yellow Urine Appearance Clear Urine pH 5.5 Ur Specific [place] 1.016 Urine Protein 1+ H Urine Glucose (UA) 1+ H Urine Ketones Negative Urine Blood Negative Urine Nitrite Negative Urine Bilirubin Negative Urine Urobilinogen Negative Ur Leukocyte Esterase 2+ H Urine WBC (Auto) 10-30 H Urine RBC (Auto) 0-4 U Hyaline Cast (Auto) 1-5 U Epithel Cells (Auto) 20-30 H Urine Bacteria (Auto) Negative 02/12/23 02/12/23 02/12/23 04:09 04:25 06:00 WBC RBC Hgb Hct MCV MCH MCHC RDW Std Deviation RDW Coeff of Pepper Plt Count MPV Immature Gran % (Auto) Neut % (Auto) Lymph % (Auto) [place] % (Auto) Eos % (Auto) Baso % (Auto) Neut # (Auto) Lymph # (Auto) [place] # (Auto) Eos # (Auto) Baso # (Auto) Immature Gran # (Auto) Sodium Potassium Chloride Carbon Dioxide Anion Gap BUN Creatinine Est Cr Clr Drug Dosing Est GFR ( Amer) Est GFR (Non-Af Amer) BUN/Creatinine Ratio Glucose POC Glucose 68 L* 138 H 139 H Calcium Magnesium Urine Color Urine Appearance Urine pH Ur Specific [place] Urine Protein Urine Glucose (UA) Urine Ketones Urine Blood Urine Nitrite Urine Bilirubin Urine Urobilinogen Ur Leukocyte Esterase Urine WBC (Auto) Urine RBC (Auto) U Hyaline Cast (Auto) U Epithel Cells (Auto) Urine Bacteria (Auto) 02/12/23 02/12/23 02/12/23 07:46 07:46 11:59 WBC 8.30 RBC 3.19 L Hgb 9.3 L Hct 28.4 L MCV 89.0 MCH 29.2 MCHC 32.7 RDW Std Deviation 44.5 RDW Coeff of Pepper 13.5 Plt Count 256 MPV 11.1 Immature Gran % (Auto) 0.5 Neut % (Auto) 72.4 Lymph % (Auto) 19.6 [place] % (Auto) 5.9 Eos % (Auto) 1.4 Baso % (Auto) 0.2 Neut # (Auto) 6.00 Lymph # (Auto) 1.63 [place] # (Auto) 0.49 Eos # (Auto) 0.12 Baso # (Auto) 0.02 Immature Gran # (Auto) 0.04 Sodium 134 L Potassium 3.8 Chloride 104 Carbon Dioxide 23 Anion Gap 7 BUN 19 Creatinine 1.25 H Est Cr Clr Drug Dosing 32.7 Est GFR ( Amer) 48.4 Est GFR (Non-Af Amer) 41.8 BUN/Creatinine Ratio 15.2 Glucose 161 H POC Glucose 118 H Calcium 8.3 L Magnesium 2.2 Urine Color Urine Appearance Urine pH Ur Specific [place] Urine Protein Urine Glucose (UA) Urine Ketones Urine Blood Urine Nitrite Urine Bilirubin Urine Urobilinogen Ur Leukocyte Esterase Urine WBC (Auto) Urine RBC (Auto) U Hyaline Cast (Auto) U Epithel Cells (Auto) Urine Bacteria (Auto) 02/12/23 16:43 WBC RBC Hgb Hct MCV MCH MCHC RDW Std Deviation RDW Coeff of Pepper Plt Count MPV Immature Gran % (Auto) Neut % (Auto) Lymph % (Auto) [place] % (Auto) Eos % (Auto) Baso % (Auto) Neut # (Auto) Lymph # (Auto) [place] # (Auto) Eos # (Auto) Baso # (Auto) Immature Gran # (Auto) Sodium Potassium Chloride Carbon Dioxide Anion Gap BUN Creatinine Est Cr Clr Drug Dosing Est GFR ( Amer) Est GFR (Non-Af Amer) BUN/Creatinine Ratio Glucose POC Glucose 186 H Calcium Magnesium Urine Color Urine Appearance Urine pH Ur Specific [place] Urine Protein Urine Glucose (UA) Urine Ketones Urine Blood Urine Nitrite Urine Bilirubin Urine Urobilinogen Ur Leukocyte Esterase Urine WBC (Auto) Urine RBC (Auto) U Hyaline Cast (Auto) U Epithel Cells (Auto) Urine Bacteria (Auto) PG Care Time/CCT Total # of Minutes Spent Total Time Spent with Patient: Total time spent is greater than 50% in coordination of care (as documented) at patient's floor/unit and/or counseling patient: Coding Level of Care Code 26979 SUB INP/OBS CARE 2/35MIN Diagnoses Sepsis A41.9 Dehiscence of amputation stump of left lower extremity T87.81 Hypomagnesemia E83.42 Diabetes E11.9 PAD (peripheral artery disease) I73.9 Benign essential hypertension I10 Chronic GERD K21.9 Hypothyroidism E03.9 History of transmetatarsal amputation of left foot Z89.432 Status post below knee amputation of right lower extremity Z89.511
[2023-02-12] MEDS: LANTUS PER UNIT CHARGE SQ SCH (21:09)
[2023-02-12] MEDS: ENOXAPARIN INJ 40 MG/0.4 ML SYR SQ SCH (21:16)
[2023-02-12] MEDS: CHOLECALCIFEROL 1,000 UNITS 25 MCG TAB PO SCH (21:17)
[2023-02-12] MEDS: PANTOprazole 40 MG TAB PO SCH (21:17)
[2023-02-13] MEDS: PIPERACILLIN/TAZOBACTAM 4.5 GM in DEXTROSE 5% MINI-B 100 ML IV SCH ×3 (00:04→16:20)
[2023-02-13] MEDS: ACETAMINOPHEN 500 MG TAB PO PRN ×2 (01:35→15:45)
[2023-02-13] MEDS: LEVOTHYROXINE SODIUM 100 MCG TABLET PO SCH (06:07)
[2023-02-13] MEDS: INSULIN ASPART PER UNIT CHARGE SC SCH ×4 (08:45→21:24)
[2023-02-13] MEDS: FLUTICASONE/VILANTEROL 200/25MCG 14 PUFFS/INHALER INH SCH (08:56)
[2023-02-13] MEDS: SPIRONOLACTONE 25 MG TAB PO SCH (08:56)
[2023-02-13] MEDS: carvediloL 25 MG TAB PO SCH ×2 (08:56→21:29)
[2023-02-13 08:57] LABS: BUN Creatinine Ratio 14.9 (10-20); Calcium 8.7 mg/dl (8.6-10.3); Creatinine Clr Calc Pharmacy 35.9 ml/min; Est GFR (African American) 54.1 ml/min; Est GFR (Non-African American) 46.7 ml/min; Potassium 3.9 mmol/L (3.5-5.1)
[2023-02-13] MEDS: CLOPIDOGREL BISULFATE 75 MG TAB PO SCH (08:57)
[2023-02-13] MEDS: SULFAMETHOXAZOLE/TRIMETHOPRIM DS 800/160MG TAB PO SCH ×2 (08:57→21:30)
[2023-02-13] MEDS: DOCUSATE SODIUM 100 MG CAP PO SCH ×2 (09:55→21:30)
--- NOTE | 2023-02-13 11:11 | Podiatry Consultation ---
Date of Consultation February 12, 2023 Assessment & Plan (1) Status post below knee amputation of right lower extremity: (2) History of transmetatarsal amputation of left foot: (3) PAD (peripheral artery disease): (4) Dehiscence of amputation stump of left lower extremity: (5) Gangrene due to arterial insufficiency: Plan - Patient was examined and evaluated. - Left foot was cleaned and redressed with a betadine wet to dry compressive dressing. - We discussed treatment options moving forward, including options for antibiotics, wound care, and surgical intervention. - Her recent arterial doppler showed likely adequate perfusion for healing, but her underlying microvascular disease is certainly making this wound more difficult to heal. - With her rapid recovery while on antibiotics, she may be able to avoid further, more proximal surgery. She could benefit from fpc oral versus IV antibiotics for treatment of osteomyelitis. - It will be difficult to assess adequately for true OM versus contamination with imaging. XR and MRI will show positive changes because of the recent surgical intervention. - For now, I would likely recommend a conservative surgical approach. Her soft tissue flap to cover the metatarsals appears clinically viable. This will likely require a wound vac for several weeks. - With vac placement, she could heal enough, or improve the quality of her TMA stump enough, to attempt delayed primary closure. - If this continues to heal slowly or if she develops recurrent infections, she would certainly need more proximal amputation, whether at the Lisfranc joint or a less viable [place] level amputation; anything more significant would benefit more from a BKA. - Will continue to follow. History of Present Illness Reason for Consultation: Left foot transmetatarsal site dehiscence, now with infection Attending Physician: Edgar Wood MD History of Present Illness This patient is a recent patient of mine who we've been seeing for the last few months for treatment of left foot necrosis and infection. A TMA was performed around 6 weeks ago which dehisced after suture removal. Since that time, she has been in wound care with a wound VAC. Recently, over the last few days, she has noticed increasing systemic signs of infection. She was supposed to be seen in our office on Saturday for removal of her wound VAC and redressing of the surgical site. Since she called in the morning, stating that she was feeling systemically ill, we instructed her to go to the emergency department which she did for admission to the hospital. Now, seen at bedside, she is feeling better with decreasing signs of infection. She did have her wound VAC removed at this hospitalization and has had a dry sterile dressing on for the last day or so. Allergies Allergy/AdvReac Type Severity Reaction Status Date / Time enflurane Allergy Severe NAUSEA, Verified 02/11/23 11:37 jaundiced Iodinated Contrast Media Allergy Intermediate HIVES - Verified 02/11/23 11:37 IVP DYE CHECO Inhibitors Allergy Mild hives Verified 02/11/23 11:37 nickel Allergy Mild REDNESS Verified 02/11/23 11:37 AND ITCHING liraglutide [From Victoza] AdvReac Mild SEVERE Verified 02/11/23 11:37 NAUSEA Home Medications Medication Instructions Recorded Confirmed Type glucagon HCl 1 mg solution for 1 mg subcut Q20M PRN hypoglycemia 06/29/21 02/11/23 Rx injection (Glucagon (HCl) #1 ea Emergency Kit) insulin lispro 100 unit/mL 1 sliding scale dose subcut 02/16/22 02/11/23 History subcutaneous solution (Humalog USEASDIRECTD U-100 Insulin) atorvastatin 80 mg tablet 80 mg PO QPM #90 tabs 02/23/22 02/11/23 Rx cholecalciferol (vitamin D3) 25 1,000 unit PO HS 06/19/22 02/11/23 History mcg (1,000 unit) capsule (Vitamin D3) clopidogrel 75 mg tablet (Plavix) 75 mg PO QAM #90 tabs 07/12/22 02/11/23 Rx nifedipine 60 mg tablet,extended 60 mg PO HS #90 tabs 10/31/22 02/11/23 Rx release mometasone-formoterol HFA 200 2 puff inhalation BID PRN 12/20/22 02/11/23 History mcg-5 mcg/actuation aerosol Shortness Of Breath inhaler (Dulera) ferrous gluconate 324 mg (37.5 mg 324 mg PO DAILY #30 tabs 01/03/23 02/11/23 Rx iron) tablet carvedilol 25 mg tablet (Coreg) 25 mg PO BID #180 tabs 01/23/23 02/11/23 Rx levothyroxine 100 mcg tablet 100 mcg PO DAILY #90 tabs 01/23/23 02/11/23 Rx losartan 100 mg tablet (Cozaar) 100 mg PO QAM #90 tabs 01/23/23 02/11/23 Rx omeprazole 20 mg capsule,delayed 20 mg PO HS #90 caps 01/23/23 02/11/23 Rx release docusate sodium 100 mg capsule 100 mg PO BID 02/05/23 02/11/23 History (Dulcolax Stool Softener (docusate)) spironolactone 25 mg tablet 50 mg PO DAILY 02/05/23 02/11/23 History nystatin 100,000 unit/gram topical 1 applic topical BID #60 grams 02/06/23 02/11/23 Rx powder insulin detemir U-100 100 unit/mL 15 unit subcut HS 02/11/23 02/11/23 History subcutaneous solution (Levemir U-100 Insulin) Patient History Medical History Anemia CHRONIC; BASELINE HGB STABLE AT 9-10 RANGE PER CHART REVIEW Asthma CONTROLLED/LAST USE OF INHALER "A LONG TIME AGO" Below-knee amputation of right lower extremity Carotid artery stenosis S/P LEFT (2002), RIGHT (1995) Cerebral aneurysm Chronic kidney disease STAGE III - FOLLOWS WITH NEPHRO- CREATINE USUALLY 1.3-1.5 Conductive hearing loss of right ear Constipation CREST syndrome Deep vein thrombosis RLE DVT DX'D 01/2018; CHRONIC-- ON XARELTO BID (PCP/VASCULAR MONITORING) Diabetes IDDM Diabetic foot ulcer Diverticular disease Gangrene due to arterial insufficiency left foot GERD (gastroesophageal reflux disease) History of COVID-19 12/20/22 [facility] - no symptoms History of MRSA infection April 2017 (right foot - has since been amputated) --> no active infection. Hx of carotid stenosis BOTH SIDES - HAD LEFT CEA 2002 AND RIGHT CEA 1995 Hx of deep venous thrombosis 2017 R LE Hx of renal cell cancer R RENAL (2012) S/P R NEPHRECTOMY - NO RADIATION NO CHEMO Hyperkalemia Hyperlipidemia Hypertension Hypertensive urgency Hypothyroidism Left carpal tunnel syndrome Occlusion and stenosis of carotid artery with cerebral infarction On anticoagulant therapy Osteoporosis Otalgia, left ear PAD (peripheral artery disease) Pressure ulcer of right foot, stage 2 Raynauds syndrome Renal artery stenosis RIGHT KIDNEY STENT ATTEMPTED 2010; S/P RIGHT NEPHRECTOMY 2012 Right lumbar radiculitis S/P angiogram of extremity left leg Scleroderma TMJ derangement Tympanic membrane perforation Vertigo Surgical History H/O carotid endarterectomy LEFT (2002), RIGHT (1995) H/O sinus surgery History of amputation of lesser toe of right foot MULTIPLE TOE AMPUTATIONS/I&D (ALL RT TOES) History of angioplasty MULTIPLE OF LE'S WITH STENTS TO LOWER EXTREMITIES PLACED History of appendectomy History of atherectomy LEFT (02/2017) History of cardiac cath 2011= NO STENTS ([facility] [place]) History of carpal tunnel surgery RIGHT HAND, TRIGGER RIGHT FINGER History of cataract surgery RT/LEFT History of cholecystectomy History of colonoscopy History of endoscopic sinus surgery History of esophagogastroduodenoscopy (EGD) History of hysterectomy MERYL W/ BSO History of left breast biopsy 1997 History of nephrectomy RIGHT (2012) History of oophorectomy B/L OVARIES History of procedure for peripheral vascular disease LEFT POPLITEAL S/P PERONEAL ARTERY BYPASS 2012; RLE ANGIO WITH INTERVENTION 06/2017 History of tonsillectomy Hx of lumpectomy LEFT BREAST (BENIGN) Nausea and vomiting after administration of anesthetic agent S/P amputation right Below the knee amputation Family History Father Family hx of colon cancer Family history of diabetes mellitus Mother Lung cancer Stroke Unknown Rheumatoid arthritis Other No family history of adverse response to anesthesia No family history of bleeding disorder Social History Smoking Status: Never smoker Second Hand Exposure: No; Do You Dip or Chew Tobacco: No; Hx Alcohol Use: No Hx Substance Use: No Preferred Language: [place]utanese Communication Ability: Effective Visual Impairment: No Limitations Hearing Ability: Normal 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 Other Information That Helps Us Care for You: No Feels Safe at Home: Yes Safety Concerns: Feels Safe At This Time Diet: diabetic during the past year weight has: decreased > 10 lbs Seatbelt Use: always Do you think of yourself as: straight/heterosexual Gender Identity: Female Assistive Devices: Prosthesis, Walker and Wheelchair Review of Systems Review of Systems: All systems reviewed & are unremarkable except as noted in HPI & below Constitutional: + fever, + chills and + sweats Eyes: + problem reported Ear, Nose, Mouth, Throat: + problem reported Respiratory: + problem reported Cardiovascular: + problem reported Gastrointestinal: + problem reported Genitourinary: + problem reported Musculoskeletal: + problem reported Integumentary: + problem reported Neurologic: + problem reported Psychiatric: + problem reported Endocrine: + problem reported Hematologic / Lymphatic: + problem reported Physical Exam Constitutional: well developed, well nourished and + ill appearing Eyes: PERRL, conjunctivae normal, anicteric sclerae ENMT: external ear and nose normal, oropharynx normal Neck: trachea midline, no thyromegaly Respiratory: normal respiratory effort, lungs clear to auscultation Cardiovascular: Rate/Rhythm: regular rate and regular rhythm Vessels: + abnormal peripheral pulses Extremities: + pedal edema Musculoskeletal: Head/Neck/Chest: + head abnormal to inspection, normocephalic and head atraumatic Spine: normal cervical lordosis Extremities: + limited ROM of extremities, + amputation noted (WithWith dehiscence noted to the left transmetatarsal amputation site.), + lower extremity abnormal to inspection Right (Right proximal amputation noted, below-knee amputation is appreciated.) and + foot abnormality Left (Complete dehiscence is noted to the transmetatarsal imitation site, now with some sloughing and soupy drainage. No cuauhtemoc purulence appreciated.) Gait: + limp Skin: + ulcer and + wound Neurologic: PERRL, EOMI, accommodation nl, no face palsy, no dysarthria moves all extremities; + abnormal touch/pain/proprioception (Sensory deficit is noted to the left lower extremity. Decreased touch and ) and + abnormal sensation to monofilament Psychiatric: A+Ox3, euthymic affect Results & Data Vital Signs (Past 12 Hours) Vital Signs Temp Pulse Resp BP Pulse Ox O2 Del Method 02/13/23 08:53 55 L 192/66 H 02/13/23 07:14 36.5 C 55 L 16 186/65 H 98 Room Air
[2023-02-13] MEDS ORDERED: LOSARTAN POTASSIUM 50 MG TAB PO SCH (12:15)
[2023-02-13] MEDS: DAPTOmycin 225 MG in SYRINGE 0 ML IV SCH (12:39)
--- NOTE | 2023-02-13 13:26 | Infectious Disease Progress Nt ---
Date of Service February 13, 2023 24 hours 02/11 Bcx GPC, rapid ID pending Assessment & Plan (1) Dehiscence of amputation stump of left lower extremity: (2) PAD (peripheral artery disease): (3) Diabetes: (4) Sepsis: Plan 77 year old female with CAD s/p CEA, CARMELITA and renal ca s/p right nephrectomy in 2012, CKD Cr 1.3-1.5, peripheral artery disease, right BKA and left foot TMA on 01/09/23 which immediately dehiscedwith attempted closure after debridement in the office on 01/16 c/b further dehiscence after suture removal and wound vac placement presented to ED on 02/11 with foot pain and fevers. Patient previously underwent LLE angiography with stent placement on 12/24/22, f ricardoing this she had the L foot TMA on 01/09/23. OR cultures during that time grew Stenotrophomonas maltophilia (S levofloxacin and Bactrim) and Trevor albicans/dubliniensis. Readmitted to [facility] 01/30-02/01. 01/30 Blood cultures no growth 01/30 wound cultures Moderate counts mixed probable skin microbiota. Evaluated by vascular during that time no intervention. Wound did not appear infected and patient was not dcd on antibiotics. On admission, Xray L foot Status post amputation of the forefoot at the level of the middiaphyseal metatarsals. Soft tissue swelling with deep tissue air and subcentimeter bone fragments are likely expected postoperative changes. No osteo. No gas. WBC 13, platelets 309, Cr 1.13 #L foot dehiscence with wound infection #R BKA # CKD, s/p nephrectomy #DM #PAD MICRO 01/09/23 L TMA OR cultures Stenotrophomonas maltophilia (S levofloxacin and Bactrim) and Trevor albicans/dubliniensis 02/11 Blood cx GPC 02/13 BC P ABX Zosyn Daptomycin Bactrim RECOMMEND: Patient has h/o MRSA would continue with Daptomycin (off statin, CPK level to be checked) C/W zosyn for gram neg and anaerobic coverage C/W bactrim for stenotrophamonas growth previously, monitor cr closely Would not cover prior trevor has likely nonpathogenic Await Podiatry recommendations--> high risk for closure so deep debridement unlikely, wound vac placement Vascular c/s Blood cultures suggesting of CoNS, likely contaminant Likely transition to oral augmentin, bactrim pending above cultures, vascular findings, and wound cultures D/W Dr. Wood ID will follow Flaca Santacruz MD Infectious Diseases Admission and Anticipated Discharge Date Admission Date: February 11, 2023 Subjective This patient recommendation is based on a telemedicine consult request which was completed asynchronously through chart review and information provided by the primary physician. The patient was not seen or examined today. The evaluation is consultative in nature and all patient care and treatment decisions can either be accepted or rejected by the patient's primary hospital-based treating physician using their own independent medical judgment for their patient. Time Spent Reviewing Chart: 21 - 30 minutes Results & Data Vital Signs (Past 12 Hours) Vital Signs Temp Pulse Resp BP Pulse Ox O2 Del Method 02/13/23 08:53 55 L 192/66 H 02/13/23 07:14 36.5 C 55 L 16 186/65 H 98 Room Air Laboratory Results BMP 02/13/23 08:05 Sodium 137 Potassium 3.9 Chloride 106 Carbon Dioxide 24 BUN 17 Creatinine 1.14 Glucose 79 Calcium 8.7 Medications Administered Current Inpatient Medications Acetaminophen (Acetaminophen 500 Mg Tab) 1,000 mg PO Q8H PRN PRN Reason: pain Stop: 03/14/23 13:21 Last Admin: 02/13/23 01:35 Dose: 1,000 mg Carvedilol (Carvedilol 25 Mg Tab) 25 mg PO BID ANANTH Stop: 03/13/23 20:59 Last Admin: 02/13/23 08:56 Dose: Not Given Clopidogrel Bisulfate (Clopidogrel Bisulfate 75 Mg Tab) 75 mg PO QAM ANANTH Stop: 03/14/23 08:59 Last Admin: 02/13/23 08:57 Dose: 75 mg Dextrose (Dextrose 50% 50 Ml Syringe) 25 - 50 ml IV UD PRN; Protocol PRN Reason: Hypoglycemia Protocol Stop: 03/13/23 13:05 Last Admin: 02/12/23 04:16 Dose: 25 ml Docusate Sodium (Docusate Sodium 100 Mg Cap) 100 mg PO BID ANANTH Stop: 03/13/23 20:59 Last Admin: 02/13/23 09:55 Dose: 100 mg Enoxaparin Sodium (Enoxaparin Inj 40 Mg/0.4 Ml Syr) 40 mg SQ QPM ANANTH Stop: 03/13/23 20:59 Last Admin: 02/12/23 21:16 Dose: 40 mg Fluticasone/Vilanterol (Fluticasone/Vilanterol 200/25mcg 14 Puffs/Inhaler) 1 puffs INH DAILY [facility] Stop: 03/14/23 08:59 Last Admin: 02/13/23 08:56 Dose: Not Given Glucagon (Glucagon For Inj 1 Mg Vial) 1 mg SQ UD PRN; Protocol PRN Reason: Hypoglycemia Protocol Stop: 03/13/23 13:05 Glucose (Glucose 10 Tab/Tube) 4 - 8 tab PO UD PRN; Protocol PRN Reason: Hypoglycemia Treatment Stop: 03/13/23 13:05 Glucose (Glucose 40% Gel 15 Gm Tube) 15 - 30 gm PO UD PRN; Protocol PRN Reason: Hypoglycemia Protocol Stop: 03/13/23 13:05 Daptomycin 225 mg/ Syringe 4.5 mls @ 2.25 mls/min IV Q24H [facility]; Protocol Stop: 02/19/23 11:59 Last Admin: 02/13/23 12:39 Dose: 2.25 mls/min Piperacillin Sod/Tazobactam (Sod 4.5 gm/ Dextrose) 100 mls @ 25 mls/hr IV Q8H [facility]; Protocol Stop: 02/18/23 15:59 Last Infusion: 02/13/23 12:44 Dose: 25 mls/hr Insulin Aspart (Insulin Aspart Per Unit Charge) 0 units SC ACHS [facility] Stop: 03/14/23 05:59 Last Admin: 02/13/23 12:53 Dose: 2 units Insulin Glargine (Lantus Per Unit Charge) 15 units SQ HS [facility] Stop: 03/13/23 20:59 Last Admin: 02/12/23 21:09 Dose: 15 units Levothyroxine Sodium (Levothyroxine Sodium 100 Mcg Tablet) 100 mcg PO DAILYBB ANANTH Stop: 03/14/23 06:29 Last Admin: 02/13/23 06:07 Dose: 100 mcg Losartan Potassium (Losartan Potassium 50 Mg Tab) 50 mg PO QAM [facility] Stop: 03/15/23 12:14 Last Admin: 02/13/23 12:55 Dose: 50 mg Miscellaneous (Carbohydrates For Hypoglycemia ) 15 - 30 gm PO UD PRN PRN Reason: Hypoglycemia Protocol Stop: 03/13/23 13:05 Ondansetron HCl (Ondansetron Inj 2 Mg/Ml 2 Ml Vial) 4 mg IV Q6H PRN PRN Reason: Nausea And Vomiting Stop: 03/14/23 08:40 Last Admin: 02/12/23 09:13 Dose: 4 mg Oxycodone HCl (Oxycodone Hcl Ir 5 Mg Tab (Immediate Release)) 5 mg PO Q6H PRN PRN Reason: Pain not relieved by Tylenol Stop: 02/26/23 13:21 Pantoprazole Sodium (Pantoprazole 40 Mg Tab) 40 mg PO HS ANANTH Stop: 03/13/23 20:59 Last Admin: 02/12/23 21:17 Dose: 40 mg Spironolactone (Spironolactone 25 Mg Tab) 50 mg PO DAILY ANANTH Stop: 03/14/23 08:59 Last Admin: 02/13/23 08:56 Dose: 50 mg Trimethoprim/Sulfamethoxazole (Sulfamethoxazole/Trimethoprim Ds 800/160mg Tab) 1 tab PO Q12 ANANTH Stop: 02/18/23 20:59 Last Admin: 02/13/23 08:57 Dose: 1 tab Vitamin D (Cholecalciferol 1,000 Units 25 Mcg Tab) 1,000 units PO HS ANANTH Stop: 03/13/23 20:59 Last Admin: 02/12/23 21:17 Dose: 1,000 units
--- NOTE | 2023-02-13 14:55 | Consultation ---
Date of Consultation February 13, 2023 Assessment & Plan (1) PAD (peripheral artery disease): Pt with known severe PAD. Previous admission arterial US and recent wound RN photos reviewed by Dr Umana. Wound apppears to be granulating, with wound edge necrosis. Recommend continue local wound care/podiatry care. If wound bed necrosis occurs, would consider new arterial US to eval. Please call if needed. History of Present Illness Reason for Consultation: PAD, foot wound Attending Physician: Edgar Wood MD History of Present Illness 77 yo f with multiple medical problems, including PAD s/p LLE fem-peroneal BP and multiple RLE revascularization procedures with ultimately RLE BKA, carotid stenosis, CAD, DMII, HTN, GERD, anemia, hypothyroidism, raynauds, admitted with dehiscence of L TMA and possible infection, seen in consultation today. Pt admits some discomfort in LLE, but states pain controlled with tylenol. Denies QUINTERO, fever, chest pain, SOB, abd pain, N/V, rest pain, other complaints. Pt had LLE TMA by podiatry, with subsequent wound dehiscence after suture removal, underwent reclosure which unfortunately dehisced again. Arterial US from about 2 weeks ago demonstrated patent bypass of LLE. Allergies Allergy/AdvReac Type Severity Reaction Status Date / Time enflurane Allergy Severe NAUSEA, Verified 02/11/23 11:37 jaundiced Iodinated Contrast Media Allergy Intermediate HIVES - Verified 02/11/23 11:37 IVP DYE CHECO Inhibitors Allergy Mild hives Verified 02/11/23 11:37 nickel Allergy Mild REDNESS Verified 02/11/23 11:37 AND ITCHING liraglutide [From Victoza] AdvReac Mild SEVERE Verified 02/11/23 11:37 NAUSEA Home Medications Medication Instructions Recorded Confirmed Type glucagon HCl 1 mg solution for 1 mg subcut Q20M PRN hypoglycemia 06/29/21 02/11/23 Rx injection (Glucagon (HCl) #1 ea Emergency Kit) insulin lispro 100 unit/mL 1 sliding scale dose subcut 02/16/22 02/11/23 History subcutaneous solution (Humalog USEASDIRECTD U-100 Insulin) atorvastatin 80 mg tablet 80 mg PO QPM #90 tabs 02/23/22 02/11/23 Rx cholecalciferol (vitamin D3) 25 1,000 unit PO HS 06/19/22 02/11/23 History mcg (1,000 unit) capsule (Vitamin D3) clopidogrel 75 mg tablet (Plavix) 75 mg PO QAM #90 tabs 07/12/22 02/11/23 Rx nifedipine 60 mg tablet,extended 60 mg PO HS #90 tabs 10/31/22 02/11/23 Rx release mometasone-formoterol HFA 200 2 puff inhalation BID PRN 12/20/22 02/11/23 History mcg-5 mcg/actuation aerosol Shortness Of Breath inhaler (Dulera) ferrous gluconate 324 mg (37.5 mg 324 mg PO DAILY #30 tabs 01/03/23 02/11/23 Rx iron) tablet carvedilol 25 mg tablet (Coreg) 25 mg PO BID #180 tabs 01/23/23 02/11/23 Rx levothyroxine 100 mcg tablet 100 mcg PO DAILY #90 tabs 01/23/23 02/11/23 Rx losartan 100 mg tablet (Cozaar) 100 mg PO QAM #90 tabs 01/23/23 02/11/23 Rx omeprazole 20 mg capsule,delayed 20 mg PO HS #90 caps 01/23/23 02/11/23 Rx release docusate sodium 100 mg capsule 100 mg PO BID 02/05/23 02/11/23 History (Dulcolax Stool Softener (docusate)) spironolactone 25 mg tablet 50 mg PO DAILY 02/05/23 02/11/23 History nystatin 100,000 unit/gram topical 1 applic topical BID #60 grams 02/06/23 02/11/23 Rx powder insulin detemir U-100 100 unit/mL 15 unit subcut HS 02/11/23 02/11/23 History subcutaneous solution (Levemir U-100 Insulin) Patient History Medical History Anemia CHRONIC; BASELINE HGB STABLE AT 9-10 RANGE PER CHART REVIEW Asthma CONTROLLED/LAST USE OF INHALER "A LONG TIME AGO" Below-knee amputation of right lower extremity Carotid artery stenosis S/P LEFT (2002), RIGHT (1995) Cerebral aneurysm Chronic kidney disease STAGE III - FOLLOWS WITH NEPHRO- CREATINE USUALLY 1.3-1.5 Conductive hearing loss of right ear Constipation CREST syndrome Deep vein thrombosis RLE DVT DX'D 01/2018; CHRONIC-- ON XARELTO BID (PCP/VASCULAR MONITORING) Diabetes IDDM Diabetic foot ulcer Diverticular disease Gangrene due to arterial insufficiency left foot GERD (gastroesophageal reflux disease) History of COVID-19 12/20/22 [facility] - no symptoms History of MRSA infection April 2017 (right foot - has since been amputated) --> no active infection. Hx of carotid stenosis BOTH SIDES - HAD LEFT CEA 2002 AND RIGHT CEA 1995 Hx of deep venous thrombosis 2017 R LE Hx of renal cell cancer R RENAL (2012) S/P R NEPHRECTOMY - NO RADIATION NO CHEMO Hyperkalemia Hyperlipidemia Hypertension Hypertensive urgency Hypothyroidism Left carpal tunnel syndrome Occlusion and stenosis of carotid artery with cerebral infarction On anticoagulant therapy Osteoporosis Otalgia, left ear PAD (peripheral artery disease) Pressure ulcer of right foot, stage 2 Raynauds syndrome Renal artery stenosis RIGHT KIDNEY STENT ATTEMPTED 2010; S/P RIGHT NEPHRECTOMY 2012 Right lumbar radiculitis S/P angiogram of extremity left leg Scleroderma TMJ derangement Tympanic membrane perforation Vertigo Surgical History H/O carotid endarterectomy LEFT (2002), RIGHT (1995) H/O sinus surgery History of amputation of lesser toe of right foot MULTIPLE TOE AMPUTATIONS/I&D (ALL RT TOES) History of angioplasty MULTIPLE OF LE'S WITH STENTS TO LOWER EXTREMITIES PLACED History of appendectomy History of atherectomy LEFT (02/2017) History of cardiac cath 2011= [place] History of carpal tunnel surgery RIGHT HAND, TRIGGER RIGHT FINGER History of cataract surgery RT/LEFT History of cholecystectomy History of colonoscopy History of endoscopic sinus surgery History of esophagogastroduodenoscopy (EGD) History of hysterectomy MERYL W/ BSO History of left breast biopsy 1997 History of nephrectomy RIGHT (2012) History of oophorectomy B/L OVARIES History of procedure for peripheral vascular disease LEFT POPLITEAL S/P PERONEAL ARTERY BYPASS 2012; RLE ANGIO WITH INTERVENTION 06/2017 History of tonsillectomy Hx of lumpectomy LEFT BREAST (BENIGN) Nausea and vomiting after administration of anesthetic agent S/P amputation right Below the knee amputation Family History Father Family hx of colon cancer Family history of diabetes mellitus Mother Lung cancer Stroke Unknown Rheumatoid arthritis Other No family history of adverse response to anesthesia No family history of bleeding disorder Social History Smoking Status: Never smoker Second Hand Exposure: No; Do You Dip or Chew Tobacco: No; Hx Alcohol Use: No Hx Substance Use: No Preferred Language: Bolivian Communication Ability: Effective Visual Impairment: No Limitations Hearing Ability: Normal 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 Other Information That Helps Us Care for You: No Feels Safe at Home: Yes Safety Concerns: Feels Safe At This Time Diet: diabetic during the past year weight has: decreased > 10 lbs Seatbelt Use: always Do you think of yourself as: straight/heterosexual Gender Identity: Female Assistive Devices: Prosthesis, Walker and Wheelchair Review of Systems Review of Systems: All systems reviewed & are unremarkable except as noted in HPI & below Physical Exam Constitutional: WD/WN, vitals as above + thin Neck: trachea midline Respiratory: normal respiratory effort, lungs clear to auscultation Auscultation: + diminished lung sounds Cardiovascular: Rate/Rhythm: regular rate and regular rhythm Vessels: femoral pulses present and radial pulses present; + abnormal peripheral pulses (RLE BKA noted. LLE nonpalpable.) Gastrointestinal (Abdomen): Inspection/Auscultation: abdomen normal to inspection and normal bowel sounds Percussion/Palpation: abdomen soft; abdomen nontender Musculoskeletal: no cyanosis or clubbing, extremities motor strength 5/5 Skin: no rashes, warm and dry review of wound RN photos of wound demonstrate red granulation tissue in wound bed with wound edge necrosis and slough Neurologic: moves all extremities and awake; no focal motor deficits and not confused Psychiatric: A+Ox3, euthymic affect Results & Data Vital Signs (Past 12 Hours) Vital Signs Temp Pulse Resp BP Pulse Ox O2 Del Method 02/13/23 08:53 55 L 192/66 H 02/13/23 07:14 36.5 C 55 L 16 186/65 H 98 Room Air
[2023-02-13] MEDS ORDERED: LOSARTAN POTASSIUM 50 MG TAB PO ONE (16:04)
--- NOTE | 2023-02-13 20:38 | Hospitalist Progress Note ---
Date of Service February 13, 2023 Assessment & Plan (1) Sepsis: Plan: 2nd to infected left foot/TMA appreciate ID consultation - zosyn/daptomycin/bactrim advised for now pending cultures (bactrim to cover stenotrophamonas) I spoke with Dr Balderas from podiatry - no surgical intervention recommended at this time vascular consultation completed; no vascular intervention recommended (Dr Umana performed angiogram LLE on 12/24/22) I spoke with infectious disease today - Dr Santacruz - if cultures remain negative (/ blood cx's thought to be contaminant) will likely need 3 weeks of PO abx (2) Dehiscence of amputation stump of left lower extremity: Plan: Cont wound vac Appreciate podiatry consultation vascular consultation appreciated - no plans for repeat arteriogram or other vascular procedure (3) Hypomagnesemia: Plan: replaced resolved (4) Diabetes: Plan: Hemoglobin A1C 7.5% in December Continue Lantus 15 units HS Continue Novolog - --Goal BSG Range: Low 110 mg/dL, High 140 mg/dL --Correction Factor: 35 mg/dL/unit --Carbohydrate ratio = 12 g/unit --BSGs ACHS if eating, q6h if npo Insulin requirements and lability suggest type 1 DM physiology adjust basal-bolus as needed (5) PAD (peripheral artery disease): Plan: Continue clopidogrel Statin on hold due to daptomycin usage (6) Benign essential hypertension: Plan: Cont coreg Cont losartan at usual dose of 100mg daily add back nifedipine Cont aldactone (7) Chronic GERD: Plan: Cont pantoprazole 40mg HS (8) Hypothyroidism: Plan: TSH WNL in September 2022 Continue current dose of levothyroxine (9) History of transmetatarsal amputation of left foot: Plan: 01/09/23 - Dr Natalio Balderas, podiatry Complicated by dehiscence & wound infection Continue abx Continue woundvac Appreciate podiatry and wound care team assistance (10) Status post below knee amputation of right lower extremity: Plan: right BKA status no issues has prosthesis (11) Positive blood culture: Plan: 06/06 admission cx's + for GPC likely contaminant repeat blood cultures obtained today follow cultures to completion Plan VTE Prophylaxis - Lovenox 40mg SQ daily PT, OT evals updated pt's by phone this evening Admission and Anticipated Discharge Date Admission Date: February 11, 2023 Subjective continues with mild pain from left foot, worse with ambulation and movement otherwise no new complaints woundvac was placed on left foot today had pain during the woundvac placement as well eating is poor-fair no nausea or emesis Review of Systems Review of Systems: gen - no fevers or chills cv - no chest pain or orthopnea pulm - no dyspnea Physical Exam Physical Exam: gen - NAD, resting comfortably in bed, pleasant mouth - MMM neck - no JVD heart - RRR, s1 s2, no murmur lungs - CTA b/l abd - soft NT ND BS+ ext - left foot with woundvac in place; no cellulitis of remaining portion of left foot; right leg BKA vascular - pulses left foot 1-2+ psych - a/o x 3 Results & Data Results & Data Vital Signs (Past 12 Hours) Vital Signs Temp Pulse Resp BP Pulse Ox O2 Del Method 02/13/23 19:32 36.4 C L 61 16 188/66 H 97 Room Air 02/13/23 17:35 172/57 H 02/13/23 15:58 60 18 197/73 H 98 Room Air 02/13/23 08:53 55 L 192/66 H Laboratory Results Laboratory Results - last 24 hr 02/13/23 02/13/23 02/13/23 04:17 07:42 08:05 Sodium 137 Potassium 3.9 Chloride 106 Carbon Dioxide 24 Anion Gap 7 BUN 17 Creatinine 1.14 Est Cr Clr Drug Dosing 35.9 Est GFR ( Amer) 54.1 Est GFR (Non-Af Amer) 46.7 BUN/Creatinine Ratio 14.9 Glucose 79 POC Glucose 108 H 88 Calcium 8.7 02/13/23 02/13/23 11:31 16:44 Sodium Potassium Chloride Carbon Dioxide Anion Gap BUN Creatinine Est Cr Clr Drug Dosing Est GFR ( Amer) Est GFR (Non-Af Amer) BUN/Creatinine Ratio Glucose POC Glucose 166 H 105 H Calcium Diagnostic Findings Microbiology 02/13/23 08:05 Blood Aerobic Blood Culture - Preliminary No growth in Aerobic bottle after 24 hours. 02/13/23 08:05 Blood Anaerobic Blood Culture - Preliminary No growth in Anaerobic bottle after 24 hours. 02/13/23 08:05 Blood Aerobic Blood Culture - Preliminary No growth in Aerobic bottle after 24 hours. 02/11/23 11:52 Blood Aerobic Blood Culture - Preliminary No growth in Aerobic bottle after 48 hours. 02/11/23 11:52 Blood Anaerobic Blood Culture - Final 02/12/23 02:15 Urine,Clean Catch Urine Culture - Preliminary No growth - Less than 1,000 colonies/mL, Final report to follow. 02/11/23 09:43 Blood Aerobic Blood Culture - Preliminary No growth in Aerobic bottle after 48 hours. 02/11/23 09:43 Blood Anaerobic Blood Culture - Preliminary Gram positive cocci PG Care Time/CCT Total # of Minutes Spent Total Time Spent with Patient: Total time spent is greater than 50% in coordination of care (as documented) at patient's floor/unit and/or counseling patient: Coding Level of Care Code 48008 SUB INP/OBS CARE 2/35MIN Diagnoses Sepsis A41.9 Dehiscence of amputation stump of left lower extremity T87.81 Hypomagnesemia E83.42 Diabetes E11.9 PAD (peripheral artery disease) I73.9 Benign essential hypertension I10 Chronic GERD K21.9 Hypothyroidism E03.9 History of transmetatarsal amputation of left foot Z89.432 Status post below knee amputation of right lower extremity Z89.511 Positive blood culture R78.81
[2023-02-13] MEDS: LANTUS PER UNIT CHARGE SQ SCH (21:24)
[2023-02-13] MEDS: NIFEdipine EXTENDED REL 30 MG TABCR PO SCH (21:29)
[2023-02-13] MEDS: PANTOprazole 40 MG TAB PO SCH (21:29)
[2023-02-13] MEDS: CHOLECALCIFEROL 1,000 UNITS 25 MCG TAB PO SCH (21:29)
[2023-02-13] MEDS: ENOXAPARIN INJ 40 MG/0.4 ML SYR SQ SCH (21:30)
[2023-02-14] MEDS: PIPERACILLIN/TAZOBACTAM 4.5 GM in DEXTROSE 5% MINI-B 100 ML IV SCH ×4 (01:24→23:10)
[2023-02-14] MEDS: LEVOTHYROXINE SODIUM 100 MCG TABLET PO SCH (05:20)
[2023-02-14 08:00] LABS: BUN Creatinine Ratio 18.4 (10-20); C Reactive Protein 6.83 mg/dl (0-0.5); Calcium 9.1 mg/dl (8.6-10.3); Creatinine Clr Calc Pharmacy 35.9 ml/min; Est GFR (African American) 54.1 ml/min; Est GFR (Non-African American) 46.7 ml/min; Potassium 4.7 mmol/L (3.5-5.1)
[2023-02-14] MEDS: FLUTICASONE/VILANTEROL 200/25MCG 14 PUFFS/INHALER INH SCH ×2 (08:20)
[2023-02-14] MEDS: INSULIN ASPART PER UNIT CHARGE SC SCH ×4 (08:37→20:46)
[2023-02-14] MEDS: LOSARTAN POTASSIUM 50 MG TAB PO SCH (09:07)
[2023-02-14] MEDS: CLOPIDOGREL BISULFATE 75 MG TAB PO SCH (09:07)
[2023-02-14] MEDS: SULFAMETHOXAZOLE/TRIMETHOPRIM DS 800/160MG TAB PO SCH ×2 (09:08→20:46)
[2023-02-14] MEDS: carvediloL 25 MG TAB PO SCH ×2 (09:08→20:46)
[2023-02-14] MEDS: SPIRONOLACTONE 25 MG TAB PO SCH (09:08)
[2023-02-14] MEDS: DOCUSATE SODIUM 100 MG CAP PO SCH ×2 (09:11→20:46)
--- NOTE | 2023-02-14 10:13 | Infectious Disease Progress Nt ---
Date of Service February 14, 2023 Assessment & Plan (1) Dehiscence of amputation stump of left lower extremity: (2) PAD (peripheral artery disease): (3) Diabetes: (4) Sepsis: Plan 77 year old female with CAD s/p CEA, CARMELITA and renal ca s/p right nephrectomy in 2012, CKD Cr 1.3-1.5, peripheral artery disease, right BKA and left foot TMA on 01/09/23 which immediately dehiscedwith attempted closure after debridement in the office on 01/16 c/b further dehiscence after suture removal and wound vac placement presented to ED on 02/11 with foot pain and fevers. Patient previously underwent LLE angiography with stent placement on 12/24/22, following this she had the L foot TMA on 01/09/23. OR cultures during that time grew Stenotrophomonas maltophilia (S levofloxacin and Bactrim) and Trevor albicans/dubliniensis. Readmitted to [facility] 01/30-02/01. 01/30 Blood cultures no growth 01/30 wound cultures Moderate counts mixed probable skin microbiota. Evaluated by vascular during that time no intervention. Wound did not appear infected and patient was not dcd on antibiotics. On admission, Xray L foot Status post amputation of the forefoot at the level of the middiaphyseal metatarsals. Soft tissue swelling with deep tissue air and subcentimeter bone fragments are likely expected postoperative changes. No osteo. No gas. WBC 13, platelets 309, Cr 1.13 #L foot dehiscence with wound infection #R BKA # CKD, s/p nephrectomy #DM #PAD MICRO 01/09/23 L TMA OR cultures Stenotrophomonas maltophilia (S levofloxacin and Bactrim) and Trevor albicans/dubliniensis 02/11 Blood cx GPC 02/13 BC P ABX Zosyn Daptomycin Bactrim RECOMMEND: Patient has h/o MRSA would continue with Daptomycin (off statin, CPK level to be checked) C/W zosyn for gram neg and anaerobic coverage C/W bactrim for stenotrophamonas growth previously, monitor cr closely Would not cover prior trevor has likely nonpathogenic Await Podiatry recommendations--> high risk for closure so deep debridement unlikely, wound vac placement Vascular c/s Blood cultures suggesting of CoNS, likely contaminant--> unclear why not s peciated or rapid ID, will d/w Microbiology Likely transition to oral augmentin 875/125 1 po BID, bactrim DS 1 tab po BID pending above cultures, vascular findings, and wound cultures for 3 weeks total through 02/11-03/04/23 with follow up chem while on bactrim D/W Dr. Wood ID will follow Flaca Santacruz MD Infectious Diseases Admission and Anticipated Discharge Date Admission Date: February 11, 2023 Subjective This patient recommendation is based on a telemedicine consult request which was completed asynchronously through chart review and information provided by the primary physician. The patient was not seen or examined today. The evaluation is consultative in nature and all patient care and treatment decisions can either be accepted or rejected by the patient's primary hospital-based treating physician using their own independent medical judgment for their patient. Time Spent Reviewing Chart: 21 - 30 minutes Results & Data Vital Signs (Past 12 Hours) Vital Signs Temp Pulse BP Pulse Ox O2 Del Method 02/14/23 08:40 36.3 C L 64 155/63 H 96 Room Air Laboratory Results Laboratory Results - last 48 hr 02/12/23 02/12/23 02/12/23 11:59 16:43 20:18 Sodium Potassium Chloride Carbon Dioxide Anion Gap BUN Creatinine Est Cr Clr Drug Dosing Est GFR ( Amer) Est GFR (Non-Af Amer) BUN/Creatinine Ratio Glucose POC Glucose 118 H 186 H 164 H Calcium C-Reactive Protein 02/13/23 02/13/23 02/13/23 04:17 07:42 08:05 Sodium 137 Potassium 3.9 Chloride 106 Carbon Dioxide 24 Anion Gap 7 BUN 17 Creatinine 1.14 Est Cr Clr Drug Dosing 35.9 Est GFR ( Amer) 54.1 Est GFR (Non-Af Amer) 46.7 BUN/Creatinine Ratio 14.9 Glucose 79 POC Glucose 108 H 88 Calcium 8.7 C-Reactive Protein 02/13/23 02/13/23 02/13/23 11:31 16:44 21:02 Sodium Potassium Chloride Carbon Dioxide Anion Gap BUN Creatinine Est Cr Clr Drug Dosing Est GFR ( Amer) Est GFR (Non-Af Amer) BUN/Creatinine Ratio Glucose POC Glucose 166 H 105 H 203 H Calcium C-Reactive Protein 02/14/23 02/14/23 07:14 07:38 Sodium 138 Potassium 4.7 D Chloride 107 Carbon Dioxide 25 Anion Gap 6 BUN 21 Creatinine 1.14 Est Cr Clr Drug Dosing 35.9 Est GFR ( Amer) 54.1 Est GFR (Non-Af Amer) 46.7 BUN/Creatinine Ratio 18.4 Glucose 93 POC Glucose 92 Calcium 9.1 C-Reactive Protein 6.83 H Microbiology 02/13/23 08:05 Blood Aerobic Blood Culture - Preliminary No growth in Aerobic bottle after 24 hours. 02/13/23 08:05 Blood Anaerobic Blood Culture - Preliminary No growth in Anaerobic bottle after 24 hours. 02/13/23 08:05 Blood Aerobic Blood Culture - Preliminary No growth in Aerobic bottle after 24 hours. 02/11/23 11:52 Blood Aerobic Blood Culture - Preliminary No growth in Aerobic bottle after 48 hours. 02/11/23 11:52 Blood Anaerobic Blood Culture - Final 02/12/23 02:15 Urine,Clean Catch Urine Culture - Preliminary No growth - Less than 1,000 colonies/mL, Final report to follow. 02/11/23 09:43 Blood Aerobic Blood Culture - Preliminary No growth in Aerobic bottle after 48 hours. 02/11/23 09:43 Blood Anaerobic Blood Culture - Preliminary Gram positive cocci Medications Administered Current Inpatient Medications Acetaminophen (Acetaminophen 500 Mg Tab) 1,000 mg PO Q8H PRN PRN Reason: pain Stop: 03/14/23 13:21 Last Admin: 02/13/23 15:45 Dose: 1,000 mg Carvedilol (Carvedilol 25 Mg Tab) 25 mg PO BID ANANTH Stop: 03/13/23 20:59 Last Admin: 02/14/23 09:08 Dose: 25 mg Clopidogrel Bisulfate (Clopidogrel Bisulfate 75 Mg Tab) 75 mg PO QAM ANANTH Stop: 03/14/23 08:59 Last Admin: 02/14/23 09:07 Dose: 75 mg Dextrose (Dextrose 50% 50 Ml Syringe) 25 - 50 ml IV UD PRN; Protocol PRN Reason: Hypoglycemia Protocol Stop: 03/13/23 13:05 Last Admin: 02/12/23 04:16 Dose: 25 ml Docusate Sodium (Docusate Sodium 100 Mg Cap) 100 mg PO BID ANANTH Stop: 03/13/23 20:59 Last Admin: 02/14/23 09:11 Dose: 100 mg Enoxaparin Sodium (Enoxaparin Inj 40 Mg/0.4 Ml Syr) 40 mg SQ QPM ANANTH Stop: 03/13/23 20:59 Last Admin: 02/13/23 21:30 Dose: 40 mg Fluticasone/Vilanterol (Fluticasone/Vilanterol 200/25mcg 14 Puffs/Inhaler) 1 puffs INH DAILY ANANTH Stop: 03/14/23 08:59 Last Admin: 02/14/23 08:20 Dose: Not Given Glucagon (Glucagon For Inj 1 Mg Vial) 1 mg SQ UD PRN; Protocol PRN Reason: Hypoglycemia Protocol Stop: 03/13/23 13:05 Glucose (Glucose 10 Tab/Tube) 4 - 8 tab PO UD PRN; Protocol PRN Reason: Hypoglycemia Treatment Stop: 03/13/23 13:05 Glucose (Glucose 40% Gel 15 Gm Tube) 15 - 30 gm PO UD PRN; Protocol PRN Reason: Hypoglycemia Protocol Stop: 03/13/23 13:05 Daptomycin 225 mg/ Syringe 4.5 mls @ 2.25 mls/min IV Q24H [facility]; Protocol Stop: 02/19/23 11:59 Last Admin: 02/13/23 12:39 Dose: 2.25 mls/min Piperacillin Sod/Tazobactam (Sod 4.5 gm/ Dextrose) 100 mls @ 25 mls/hr IV Q8H [facility]; Protocol Stop: 02/18/23 15:59 Last Admin: 02/14/23 08:13 Dose: 25 mls/hr Insulin Aspart (Insulin Aspart Per Unit Charge) 0 units SC ACHS [facility] Stop: 03/14/23 05:59 Last Admin: 02/14/23 08:37 Dose: 2 units Insulin Glargine (Lantus Per Unit Charge) 15 units SQ HS ANANTH Stop: 03/13/23 20:59 Last Admin: 02/13/23 21:24 Dose: 15 units Levothyroxine Sodium (Levothyroxine Sodium 100 Mcg Tablet) 100 mcg PO DAILYBB ANANTH Stop: 03/14/23 06:29 Last Admin: 02/14/23 05:20 Dose: 100 mcg Losartan Potassium (Losartan Potassium 50 Mg Tab) 100 mg PO QAM [facility] Stop: 03/16/23 08:59 Last Admin: 02/14/23 09:07 Dose: 100 mg Miscellaneous (Carbohydrates For Hypoglycemia ) 15 - 30 gm PO UD PRN PRN Reason: Hypoglycemia Protocol Stop: 03/13/23 13:05 Nifedipine (Nifedipine Extended Rel 30 Mg Tabcr) 30 mg PO HS ANANTH Stop: 03/15/23 20:59 Last Admin: 02/13/23 21:29 Dose: 30 mg Ondansetron HCl (Ondansetron Inj 2 Mg/Ml 2 Ml Vial) 4 mg IV Q6H PRN PRN Reason: Nausea And Vomiting Stop: 03/14/23 08:40 Last Admin: 02/12/23 09:13 Dose: 4 mg Oxycodone HCl (Oxycodone Hcl Ir 5 Mg Tab (Immediate Release)) 5 mg PO Q6H PRN PRN Reason: Pain not relieved by Tylenol Stop: 02/26/23 13:21 Last Admin: 02/13/23 16:35 Dose: 5 mg Pantoprazole Sodium (Pantoprazole 40 Mg Tab) 40 mg PO HS ANANTH Stop: 03/13/23 20:59 Last Admin: 02/13/23 21:29 Dose: 40 mg Spironolactone (Spironolactone 25 Mg Tab) 50 mg PO DAILY ANANTH Stop: 03/14/23 08:59 Last Admin: 02/14/23 09:08 Dose: 50 mg Trimethoprim/Sulfamethoxazole (Sulfamethoxazole/Trimethoprim Ds 800/160mg Tab) 1 tab PO Q12 ANANTH Stop: 02/18/23 20:59 Last Admin: 02/14/23 09:08 Dose: 1 tab Vitamin D (Cholecalciferol 1,000 Units 25 Mcg Tab) 1,000 units PO HS ANANTH Stop: 03/13/23 20:59 Last Admin: 02/13/23 21:29 Dose: 1,000 units
[2023-02-14] MEDS: DAPTOmycin 225 MG in SYRINGE 0 ML IV SCH (12:29)
[2023-02-14] MEDS: ACETAMINOPHEN 500 MG TAB PO PRN (18:43)
--- NOTE | 2023-02-14 20:01 | Hospitalist Progress Note ---
Date of Service February 14, 2023 Assessment & Plan (1) Sepsis: Plan: 2nd to infected left foot/TMA appreciate ID consultation - zosyn/daptomycin/bactrim advised for now pending cultures (bactrim to cover stenotrophamonas) I spoke with Dr Balderas from podiatry 02/13/23 - no surgical intervention recommended at this time vascular consultation completed; no vascular intervention recommended (Dr Umana performed angiogram LLE on 12/24/22) I spoke with infectious disease also on 02/13/23 - Dr Santacruz - if cultures remain negative (06/06 + blood cx's thought to be contaminant) will likely need 3 weeks of PO abx (2) Dehiscence of amputation stump of left lower extremity: Plan: Cont wound vac Appreciate podiatry consultation vascular consultation appreciated - no plans for repeat arteriogram or other vascular procedure (3) Hypomagnesemia: Plan: replaced resolved (4) Diabetes: Plan: Hemoglobin A1C 7.5% in December Continue Lantus 15 units HS Continue Novolog Insulin requirements and lability suggest type 1 DM physiology adjust basal-bolus as needed (5) PAD (peripheral artery disease): Plan: Continue clopidogrel Statin on hold due to daptomycin usage resume statin at discharge (6) Benign essential hypertension: Plan: Cont coreg Cont losartan Cont nifedipine Cont aldactone (7) Chronic GERD: Plan: Cont pantoprazole 40mg HS (8) Hypothyroidism: Plan: TSH WNL in September 2022 Continue current dose of levothyroxine (9) History of transmetatarsal amputation of left foot: Plan: 01/09/23 - Dr Natalio Balderas, podiatry Complicated by dehiscence & wound infection Continue abx Continue woundvac Appreciate podiatry, ID, and wound care team assistance Woundvac will be exchanged tomorrow Can likely transition from IV to PO abx tomorrow (10) Status post below knee amputation of right lower extremity: Plan: right BKA status no issues has prosthesis in room (11) Positive blood culture: Plan: 06/06 admission cx's + for GPC likely contaminant repeat blood cultures obtained 02/13 -- thus far remain negative follow cultures to completion Plan VTE Prophylaxis - Lovenox 40mg SQ daily PT, OT evals appreciated updated pt's by phone 02/13 PM dispo - SNF for rehab Admission and Anticipated Discharge Date Admission Date: February 11, 2023 Subjective no events overnight mild pain in left foot only eating ok no diarrhea there was discussion about attending rehab post-d/c she is agreeable to such at [facility] Review of Systems Review of Systems: gen - no fevers or chills cv - no chest pain, no orthopnea pulm - no dyspnea Physical Exam Physical Exam: gen - NAD, resting comfortably in bed, pleasant, looks well mouth - MMM neck - no JVD heart - RRR, s1 s2, no murmur lungs - CTA b/l abd - soft NT ND BS+ ext - left foot with woundvac in place; no cellulitis of remaining portion of left foot; there is visible purulent material at the edge of the wound; right leg BKA vascular - pulses left foot 2+ psych - a/o x 3 Results & Data Results & Data Vital Signs (Past 12 Hours) Vital Signs Temp Pulse Pulse Resp BP Pulse Ox O2 Del Method 02/14/23 15:24 36.7 C 63 18 155/60 H 96 Room Air 02/14/23 08:40 36.3 C L 64 155/63 H 96 Room Air Laboratory Results Laboratory Results - last 24 hr 02/13/23 02/14/23 02/14/23 21:02 07:14 07:38 Sodium 138 Potassium 4.7 D Chloride 107 Carbon Dioxide 25 Anion Gap 6 BUN 21 Creatinine 1.14 Est Cr Clr Drug Dosing 35.9 Est GFR ( Amer) 54.1 Est GFR (Non-Af Amer) 46.7 BUN/Creatinine Ratio 18.4 Glucose 93 POC Glucose 203 H 92 Calcium 9.1 C-Reactive Protein 6.83 H 02/14/23 02/14/23 11:50 16:31 Sodium Potassium Chloride Carbon Dioxide Anion Gap BUN Creatinine Est Cr Clr Drug Dosing Est GFR ( Amer) Est GFR (Non-Af Amer) BUN/Creatinine Ratio Glucose POC Glucose 164 H 75 Calcium C-Reactive Protein Diagnostic Findings Microbiology 02/13/23 08:05 Blood Aerobic Blood Culture - Preliminary No growth in Aerobic bottle after 48 hours. 02/13/23 08:05 Blood Anaerobic Blood Culture - Preliminary No growth in Anaerobic bottle after 48 hours. 02/13/23 08:05 Blood Aerobic Blood Culture - Preliminary No growth in Aerobic bottle after 48 hours. 02/13/23 08:05 Blood Anaerobic Blood Culture - Final 02/12/23 02:15 Urine,Clean Catch Urine Culture - Final No growth - less than 1,000 colonies/mL. 02/11/23 11:52 Blood Aerobic Blood Culture - Preliminary No growth in Aerobic bottle after 48 hours. 02/11/23 11:52 Blood Anaerobic Blood Culture - Final 02/11/23 09:43 Blood Aerobic Blood Culture - Preliminary No growth in Aerobic bottle after 48 hours. 02/11/23 09:43 Blood Anaerobic Blood Culture - Preliminary Gram positive cocci PG Care Time/CCT Total # of Minutes Spent Total Time Spent with Patient: Total time spent is greater than 50% in coordination of care (as documented) at patient's floor/unit and/or counseling patient: Coding Level of Care Code 60987 SUB INP/OBS CARE 06/27MIN Diagnoses Sepsis A41.9 Dehiscence of amputation stump of left lower extremity T87.81 Hypomagnesemia E83.42 Diabetes E11.9 PAD (peripheral artery disease) I73.9 Benign essential hypertension I10 Chronic GERD K21.9 Hypothyroidism E03.9 History of transmetatarsal amputation of left foot Z89.432 Status post below knee amputation of right lower extremity Z89.511 Positive blood culture R78.81
[2023-02-14] MEDS: NIFEdipine EXTENDED REL 30 MG TABCR PO SCH (20:46)
[2023-02-14] MEDS: PANTOprazole 40 MG TAB PO SCH (20:46)
[2023-02-14] MEDS: ENOXAPARIN INJ 40 MG/0.4 ML SYR SQ SCH (20:46)
[2023-02-14] MEDS: CHOLECALCIFEROL 1,000 UNITS 25 MCG TAB PO SCH (20:46)
[2023-02-14] MEDS: LANTUS PER UNIT CHARGE SQ SCH (20:47)
[2023-02-15] MEDS: ACETAMINOPHEN 500 MG TAB PO PRN (03:00)
[2023-02-15] MEDS: LEVOTHYROXINE SODIUM 100 MCG TABLET PO SCH (05:45)
[2023-02-15 07:42] LABS: Hematocrit (blood only) 24.9 % (37.0-47.0); Hemoglobin 8.2 g/dl (12.0-16.0); Mean Corpuscular Hemoglobin 28.9 pg (25.0-34.0); Mean Corpuscular Hgb Conc 32.9 g/dL (32.0-36.0); Mean Corpuscular Volume 87.7 fL (80.0-100.0); Platelet Count 270 K/uL (130-400); RDW Coefficient of Variation 13.8 % (11.5-14.5); RDW Standard Deviation 44.4 fL (36.4-46.3); Red Blood Count 2.84 M/uL (4.20-5.40); White Blood Count 7.92 K/ul (4.8-10.8)
[2023-02-15 07:52] LABS: BUN Creatinine Ratio 21.4 (10-20); Creatinine Clr Calc Pharmacy 34.9 ml/min; Est GFR (African American) 52.4 ml/min; Est GFR (Non-African American) 45.2 ml/min; Potassium 4.2 mmol/L (3.5-5.1)
[2023-02-15] MEDS: SULFAMETHOXAZOLE/TRIMETHOPRIM DS 800/160MG TAB PO SCH (08:05)
[2023-02-15] MEDS: SPIRONOLACTONE 25 MG TAB PO SCH (08:06)
[2023-02-15] MEDS: carvediloL 25 MG TAB PO SCH (08:06)
[2023-02-15] MEDS: LOSARTAN POTASSIUM 50 MG TAB PO SCH (08:06)
[2023-02-15] MEDS: CLOPIDOGREL BISULFATE 75 MG TAB PO SCH (08:06)
[2023-02-15] MEDS: DOCUSATE SODIUM 100 MG CAP PO SCH (08:08)
[2023-02-15] MEDS: PIPERACILLIN/TAZOBACTAM 4.5 GM in DEXTROSE 5% MINI-B 100 ML IV SCH (08:09)
[2023-02-15] MEDS: INSULIN ASPART PER UNIT CHARGE SC SCH ×2 (09:22→12:24)
[2023-02-15] MEDS: FLUTICASONE/VILANTEROL 200/25MCG 14 PUFFS/INHALER INH SCH ×2 (09:24)
[2023-02-15] MEDS ORDERED: NIFEdipine EXTENDED REL 30 MG TABCR PO STA (10:29)
--- NOTE | 2023-02-15 12:03 | Discharge Summary ---
Date of Service February 15, 2023 Admission HPI Per Admitting Provider Trista Almaraz is a 77 year old female with peripheral artery disease, right below knee amputation and left foot transmetatarsal amputation who presents to the ER with fever, chills, nausea. She has had an ongoing foot infection for many months initially managed by wound care. She underwent LLE angio with intervention performed by Dr Umana on December 24 2022. Original left foot metatarsal amputation performed 01/09/2023 - immediately dehisced, attempted primary closure again after debriding the surgical site in office 01/16, wound dehisced again after suture removal and she was admitted at the end of January with wound vac placed at that time without antibiotics given although surface wound culture grew Stenotrophomonas maltophilia and trevor albicans. She reports doing well up until the last night when she noted worsening foot pain again with fever, chills and nausea. Discharge Exam gen - NAD, resting comfortably in bed, pleasant, looks well mouth - MMM neck - no JVD heart - RRR, s1 s2, no murmur lungs - CTA b/l abd - soft NT ND BS+ ext - left foot with woundvac in place; no cellulitis of remaining portion of left foot; there is visible purulent material at the edge of the wound; right leg BKA vascular - pulses left foot 2+ psych - a/o x 3 Discharge Data Allergies Allergy/AdvReac Type Severity Reaction Status Date / Time enflurane Allergy Severe NAUSEA, Verified 02/11/23 11:37 jaundiced Iodinated Contrast Media Allergy Intermediate HIVES - Verified 02/11/23 11:37 IVP DYE CHECO Inhibitors Allergy Mild hives Verified 02/11/23 11:37 nickel Allergy Mild REDNESS Verified 02/11/23 11:37 AND ITCHING liraglutide [From Victoza] AdvReac Mild SEVERE Verified 02/11/23 11:37 NAUSEA Consultations 02/11/23 11:10 ED Decision to Admit Stat 02/11/23 11:14 Consult Podiatry Routine 02/11/23 13:06 Consult Infectious Diseases Routine 02/12/23 12:24 Consult Vascular Surgery Routine Hospital Course (1) Sepsis: 2nd to infected left foot/TMA appreciate ID consultation - zosyn/daptomycin/bactrim advised for now pending cultures (bactrim to cover stenotrophamonas) I spoke with Dr Balderas from podiatry 02/13/23 - no surgical intervention recommended at this time vascular consultation completed; no vascular intervention recommended (Dr Umana performed angiogram LLE on 12/24/22) I spoke with infectious disease also on 02/13/23 - Dr Santacruz - if cultures remain negative (06/06 + blood cx's thought to be contaminant) will likely need 3 weeks of PO abx (2) Dehiscence of amputation stump of left lower extremity: Cont wound vac Appreciate podiatry consultation vascular consultation appreciated - no plans for repeat arteriogram or other vascular procedure (3) Hypomagnesemia: replaced resolved (4) Diabetes: Hemoglobin A1C 7.5% in December Continue Lantus 15 units HS Continue Novolog Insulin requirements and lability suggest type 1 DM physiology adjust basal-bolus as needed (5) PAD (peripheral artery disease): Continue clopidogrel Statin on hold due to daptomycin usage resume statin at discharge (6) Benign essential hypertension: Cont coreg Cont losartan Cont nifedipine Cont aldactone (7) Chronic GERD: Cont pantoprazole 40mg HS (8) Hypothyroidism: TSH WNL in September 2022 Continue current dose of levothyroxine (9) History of transmetatarsal amputation of left foot: 01/09/23 - Dr Natalio Balderas, podiatry Complicated by dehiscence & wound infection Continue abx Continue woundvac Appreciate podiatry, ID, and wound care team assistance Woundvac will be exchanged tomorrow Can likely transition from IV to PO abx tomorrow (10) Status post below knee amputation of right lower extremity: right BKA status no issues has prosthesis in room (11) Positive blood culture: 06/06 admission cx's + for GPC likely contaminant repeat blood cultures obtained 02/13 -- thus far remain negative follow cultures to completion Plan VTE Prophylaxis - Lovenox 40mg SQ daily PT, OT evals appreciated updated pt's by phone 02/13 PM dispo - SNF for rehab Discharge Plan Discharge Items Patient Disposition: Transfer Inpatient Rehab Fac Reason For Visit: LEFT FOOT INFECTION Discharge Diagnosis: 1. History of transmetatarsal amputation of the left foot 01/09/23 with subsequent Dehiscence and Infection - wound vac in place 2. PAD 3. Right BKA status 4. COVID-19 Positivity - 12/20 Follow-up/Referrals: Agustín Jarvis MD [Primary Care Provider] - Stand-Alone Forms: My [facility] Medications and DC Order Prescriptions: No Action Glucagon (HCl) Emergency Kit 1 mg recon soln 1 mg subcut Q20M PRN (Reason: hypoglycemia) Qty: 1 0RF Rx Instructions: until target blood sugar attained atorvastatin 80 mg tablet 80 mg PO QPM Qty: 90 3RF clopidogrel [Plavix] 75 mg tablet 75 mg PO QAM Qty: 90 3RF nifedipine 60 mg tablet extended release 60 mg PO HS Qty: 90 3RF ferrous gluconate 324 mg (37.5 mg iron) tablet 324 mg PO DAILY Qty: 30 0RF docusate sodium [Dulcolax Stool Softener (dss)] 100 mg capsule 100 mg PO BID spironolactone 25 mg tablet 50 mg PO DAILY nystatin 100,000 unit/gram powder 1 applic topical BID Qty: 60 0RF carvedilol [Coreg] 25 mg tablet 25 mg PO BID Qty: 180 3RF levothyroxine 100 mcg tablet 100 mcg PO DAILY Qty: 90 3RF losartan [Cozaar] 100 mg tablet 100 mg PO QAM Qty: 90 3RF omeprazole 20 mg capsule,delayed release(DR/EC) 20 mg PO HS Qty: 90 3RF insulin lispro [Humalog U-100 Insulin] 100 unit/mL Solution 1 sliding scale dose SUBCUT USEASDIRECTD Patient Comments: 1 unit per 7 grams of carbs; unsure of CF Levemir U-100 Insulin 100 unit/mL solution 15 unit SQ HS Rx Instructions: 15 units, at bedtime. cholecalciferol (vitamin D3) [Vitamin D3] 25 mcg (1,000 unit) capsule 1,000 unit PO HS Dulera 200-5 mcg/actuation HFA aerosol inhaler 2 puff inhalation BID PRN (Reason: Shortness Of Breath) Admission Data Admit Date/Time: 02/11/23 11:11 Attending Provider: Edgar Wood Admit Provider: Edgar Brooks Primary Care Provider: Agustín Jarvis Other Providers: Edgar Brooks ; Natalio Balderas ; Christen Dias ; Jose Cortez ; Yoselyn Uriarte ; Rogelio Carmen ; Sharon Cochran ; Flaca Santacruz ; Makenzie Rivero ; Miquel Alegria ; Sylvia Bryan ; Wesley Umana ; KostasBerkley Pike ; [facility] Coding Diagnoses Sepsis A41.9 Dehiscence of amputation stump of left lower extremity T87.81 Hypomagnesemia E83.42 Diabetes E11.9 PAD (peripheral artery disease) I73.9 Benign essential hypertension I10 Chronic GERD K21.9 Hypothyroidism E03.9 History of transmetatarsal amputation of left foot Z89.432 Status post below knee amputation of right lower extremity Z89.511 Positive blood culture R78.81
[2023-02-15] MEDS: DAPTOmycin 225 MG in SYRINGE 0 ML IV SCH (12:25)
[2023-02-15] MEDS ORDERED: LANTUS PER UNIT CHARGE SQ SCH (21:00)
== END 2023-02-15 13:53 | DRG 872 ==
LOC: ED 09:09 → SUATTDRO 11:11 → EDINP 11:11 → 3N 20:25 → 3W 02-15 08:03

== ENCOUNTER 2023-04-08 12:16 | Inpatient (IN) ==
[2023-04-08 13:17] LABS: Basophils # (auto) 0.03 K/uL (0.00-0.20); Basophils % (auto) 0.2 %; Eosinophils # (auto) 0.09 K/uL (0.00-0.50); Eosinophils % (auto) 0.7 %; Hematocrit (blood only) 26.9 % (37.0-47.0); Hemoglobin 8.7 g/dl (12.0-16.0); Immature Granulocytes # (auto) 0.07 K/uL (0.01-0.20); Immature Granulocytes % (auto) 0.5 %; Lymphocytes # (auto) 2.62 K/uL (1.20-3.40); Lymphocytes % (auto) 20.3 %; Mean Corpuscular Hemoglobin 28.2 pg (25.0-34.0); Mean Corpuscular Hgb Conc 32.3 g/dL (32.0-36.0); Mean Corpuscular Volume 87.3 fL (80.0-100.0); Mean Platelet Volume 10.4 fL (9.4-12.4); Monocytes # (auto) 0.61 K/uL (0.11-0.59); Monocytes % (auto) 4.7 %; Neutrophils # (auto) 9.46 K/uL (1.40-6.50); Neutrophils % (auto) 73.6 %; Platelet Count 362 K/uL (130-400); RDW Coefficient of Variation 15.9 % (11.5-14.5); RDW Standard Deviation 50.4 fL (36.4-46.3); Red Blood Count 3.08 M/uL (4.20-5.40); White Blood Count 12.88 K/ul (4.8-10.8)
[2023-04-08 13:32] LABS: Alanine Aminotransferase 9 U/L (7-52); Albumin Globulin Ratio 1.1 (0.9-2); Albumin Level 3.8 gm/dl (3.4-5.0); Alkaline Phosphatase 170 U/L (34-104); Anion Gap 10 (3-11); Aspartate Aminotransferase 12 U/L (13-39); BUN Creatinine Ratio 17.5 (10-20); Bilirubin,Total 0.3 mg/dl (0.2-1.0); Blood Urea Nitrogen 27 mg/dl (6-23); Calcium 8.8 mg/dl (8.6-10.3); Carbon Dioxide 23 mmol/L (21-32); Chloride 101 mmol/L (98-107); Est GFR (African American) 37.6 ml/min; Est GFR (Non-African American) 32.4 ml/min; Globulin 3.4 gm/dl (2.5-4.0); Glucose 71 mg/dl (70-99(Fasting)); Potassium 4.3 mmol/L (3.5-5.1); Sodium 134 mmol/L (136-145); Total Protein 7.2 gm/dl (6.0-8.3)
[2023-04-08 14:01] LABS: INR 1.1 (0.9-1.1); Partial Thromboplastin Ratio 1.2; Partial Thromboplastin Time 34.4 Seconds (21.0-31.0); Prothrombin Time 11.8 Seconds (9.0-12.0)
--- NOTE | 2023-04-08 14:08 | XRay Report ---
XR foot LT min 3V routine CLINICAL HISTORY: amputation, infection. Left foot pain. COMPARISON STUDY: Left foot radiograph 02/11/2023. FINDINGS: Transmetatarsal amputation of the left foot. The residual metatarsals appear to extend beyo nd the skin surface. This could be due to the recent postoperative change. However, no definite bony destruction identified. Overlying bandage obscures fine bony detail. The bones are osteopenic. No acu te fracture or dislocation within the residual left foot. Vascular calcifications are noted. There is a small posterior calcaneal spur. IMPRESSION: 1. Status post transmetatarsal amputation of the left foot. The residual metatarsals appear to extend beyond the skin surface. This could be due to the recent postoperative change. 2. No definite bony destruction to confirm an osteomyelitis at this time. ACT 112: Negative or not required by law. Electronically signed by: Severiano Brown M.D. 04/08/2023 2:06 PM
--- NOTE | 2023-04-08 14:44 | Emergency Department Note ---
Impression & Plan Non-healing surgical wound ED Provider Note NAME: BARRON BOND AGE: 77 SEX: F : 1945 ARRIVES VIA: Walk-In INFORMANT: Patient, ED PROVIDER(S): Codie Mayer MD CHIEF COMPLAINT: Worsening wound on left foot HPI: This is a 77-year-old female with history of severe peripheral vascular disease presenting for worsening foot infection. Patient had a left metatarsal amputation/revision done few days ago by podiatry. She notes that since being discharged she has noticed worsening of her wound. She notes that the edges are now black. She saw her hoisting engine operator on Saturday, 2 days ago and he was concerned. He recommended follow-up to vascular surgery. She went to wound care today who saw the wound and advised to come to the ER for worsening/nonhealing wound. Patient has worsening pain without fever. Slight pus drainage. ROS: See above HPI for pertinent positives & negatives. A total of 10 systems reviewed and were otherwise negative. PAST MEDICAL HISTORY: See Below PAST SURGICAL HISTORY: See Below FAMILY HISTORY: See Below SOCIAL HISTORY: See Below HOME MEDICATIONS: See Below ALLERGIES: See Below VITALS: See Below PHYSICAL EXAMINATION: General: resting comfortably in no acute distress Head: Normocephalic and atraumatic Eyes: Normal inspection, extraocular muscles intact, no conjunctival pallor Ear, nose, throat: Normal external exam Neck: Normal range of motion Respiratory: Patient is in no respiratory distress, lungs clear to auscultation bilaterally Cardiovascular: RRR without murmur appreciated GI: soft, nontender, no guarding or rebound Extremities: Right BKA, left midfoot amputation with nonhealing wound, black eschar interspersed Neuro: The patient awake and alert, appropriately conversive,no focal decifits Skin: Warm, dry, and intact MEDICAL DECISION MAKING: This is a 77-year-old female with history of severe peripheral vascular disease presenting for worsening foot wound. Patient has a nonhealing foot wound, possible infection. Discussed with patient's hoisting engine operator, Dr. Balderas, who states he will see the patient in about 40 minutes. He is comfortable with admission and possible operative management of this. Records reviewed showing operative report from 06/03/2022 showing further resection of the patient's foot by podiatry. Patient's blood work reviewed at this time showing leukocytosis of 12.88, low hemoglobin of 8.7. Patient's foot x-ray does not appear to show osteomyelitis as per my independent reading. We will order IV antibiotics at this time, IV Zosyn as this was previously sensitive to based on micro review. We will admit to hospital service, under Dr. Brooks for further wound management and podiatry evaluation. Triage Nursing notes reviewed. Prior medical records reviewed Vital Signs: reviewed and remarkable for no significant abnormalities Differential diagnosis: Osteomyelitis, nonhealing foot wound, gangrene ER treatment provided: See below Diagnostics interpreted by me: ECG: None Cardiac Monitoring: An order was placed for continuous cardiac monitoring. The monitor shows a rate of 74 with sinus rhythm Laboratory studies: As stated above and show below. Imaging studies: See below. Radiographic imaging was reviewed by myself Consultation(s): None Past Med/Surg History Medical History (Updated 04/08/23 @ 22:53 by Codie Mayer MD) Wound infection left foot wound - nonhealing and currently wearing a wound vac (03/2023) Sepsis treated inpatient 02/2023 [facility] Dehiscence of amputation stump of left lower extremity reason for upcoming procedure History of COVID-19 12/20/22 [facility] - no symptoms tested positive 02/15/23 at [facility], was told it was related to testing positive within 90 days back in December 2022 Diabetic foot ulcer Left heel with debridement in the past Constipation TMJ derangement no current issues Cerebral aneurysm "very small"/under suveillance S/P angiogram of extremity left leg Conductive hearing loss of right ear Hypothyroidism Vertigo hx Diabetes IDDM Below-knee amputation of right lower extremity Osteoporosis Scleroderma CREST syndrome follows with PCP Chronic GERD Benign essential hypertension Raynauds syndrome Hx of renal cell cancer R renal (2012) s/p right nephrectomy, no chemo/xrt Anemia Chronic PAD (peripheral artery disease) History of MRSA infection 04/2017 (right foot - has since been amputated) > "no active infection" Carotid artery stenosis s/p Left CEA (2002), right CEA (1995) Vascular monitoring per recent visit 03/2023 Renal artery stenosis Right renal stent attempted 2010, s/p right nephrectomy 2012 Diverticular disease GERD (gastroesophageal reflux disease) Chronic kidney disease Stage III Deep vein thrombosis RLE DVT dx 2017; "chronic" PCP/vascular monitoring Hyperlipidemia Hypertension Asthma Surgical History (Updated 04/01/23 @ 09:18 by LEONARDO Dawn) Status post amputation of left foot through metatarsal bone Status post below knee amputation of right lower extremity History of transmetatarsal amputation of left foot History of esophagogastroduodenoscopy (EGD) S/P amputation right Below the knee amputation History of oophorectomy B/L OVARIES History of carpal tunnel surgery RIGHT HAND, TRIGGER RIGHT FINGER History of left breast biopsy 1997 (benign) H/O sinus surgery History of angioplasty MULTIPLE OF LE'S WITH STENTS TO LOWER EXTREMITIES PLACED History of procedure for peripheral vascular disease LEFT POPLITEAL S/P PERONEAL ARTERY BYPASS 2012; RLE ANGIO WITH INTERVENTION 06/2017 H/O carotid endarterectomy LEFT (2002), RIGHT (1995) History of atherectomy LEFT (02/2017) History of amputation of lesser toe of right foot MULTIPLE TOE AMPUTATIONS/I&D (ALL RT TOES; all the left toes have been amputated) History of cardiac cath 2011= NO STENTS ([facility] [place]) Nausea and vomiting after administration of anesthetic agent Hx of lumpectomy LEFT BREAST (BENIGN) History of hysterectomy MERYL W/ BSO History of nephrectomy RIGHT (2012) renal cell carcinoma History of appendectomy History of cholecystectomy History of colonoscopy History of endoscopic sinus surgery History of cataract surgery RT/LEFT History of tonsillectomy Family History Father Family hx of colon cancer Family history of diabetes mellitus Mother Lung cancer Stroke Unknown Rheumatoid arthritis Other No family history of adverse response to anesthesia No family history of bleeding disorder Social History Smoking Status: Never smoker Second Hand Exposure: No; Do You Dip or Chew Tobacco: No; Hx Alcohol Use: No Hx Substance Use: No Preferred Language: Malay Communication Ability: Effective Visual Impairment: No Limitations Hearing Ability: Normal 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 Feels Safe at Home: Yes Diet: diabetic during the past year weight has: decreased > 10 lbs Seatbelt Use: always Do you think of yourself as: straight/heterosexual Gender Identity: Female Assistive Devices: Glasses, Prosthesis, Walker and Wheelchair Allergies Allergies Allergy/AdvReac Type Severity Reaction Status Date / Time enflurane Allergy Severe nausea, Verified 04/08/23 11:04 jaundiced Iodinated Contrast Media Allergy Intermediate Hives- IVP Verified 04/08/23 11:04 dye CEHCO Inhibitors Allergy Mild hives Verified 04/08/23 11:04 nickel Allergy Mild Redness, Verified 04/08/23 11:04 itching liraglutide [From Victoza] AdvReac Mild Severe Verified 04/08/23 11:04 nausea Home Meds Home Medications Medication Instructions Recorded Confirmed cholecalciferol (vitamin D3) 25 1,000 unit PO HS 06/19/22 04/08/23 mcg (1,000 unit) capsule (Vitamin D3) mometasone-formoterol HFA 200 2 puff inhalation BID PRN 12/20/22 04/08/23 mcg-5 mcg/actuation aerosol Shortness Of Breath inhaler (Dulera) docusate sodium 100 mg capsule 100 mg PO BID 02/05/23 04/08/23 (Dulcolax Stool Softener (docusate)) ferrous gluconate 324 mg (37.5 mg 324 mg PO QAM 03/20/23 04/08/23 iron) tablet furosemide 20 mg tablet 20 mg PO QAM 03/20/23 04/08/23 losartan 100 mg tablet 100 mg PO QAM 03/20/23 04/08/23 omeprazole 20 mg capsule,delayed 20 mg PO HS 03/20/23 04/08/23 release spironolactone 50 mg tablet 50 mg PO QAM 03/20/23 04/08/23 levothyroxine 100 mcg tablet See Rx Instructions .Route .COMPLEX 04/08/23 04/08/23 Previous Rx's Medication Instructions Recorded glucagon HCl 1 mg solution for 1 mg subcut Q20M PRN hypoglycemia 06/29/21 injection (Glucagon (HCl) #1 ea Emergency Kit) atorvastatin 80 mg tablet 80 mg PO QPM #90 tabs 02/23/22 clopidogrel 75 mg tablet (Plavix) 75 mg PO QAM #90 tabs 07/12/22 carvedilol 25 mg tablet (Coreg) 25 mg PO BID #180 tabs 01/23/23 nystatin 100,000 unit/gram topical 1 applic topical BID #60 grams 02/06/23 powder acetaminophen 500 mg tablet 1,000 mg (2 x 500 mg) PO Q8H PRN 02/15/23 (Tylenol Extra Strength) fever or pain #30 tabs insulin detemir U-100 100 unit/mL 12 unit (0.12 mL) subcut HS #1 mL 02/15/23 subcutaneous solution (Levemir U-100 Insulin) insulin lispro 100 unit/mL 1 sliding scale dose subcut ACHS 02/15/23 subcutaneous solution (Humalog #10 mL U-100 Insulin) nifedipine 60 mg tablet,extended 60 mg PO HS #90 tabs 03/04/23 release amoxicillin 500 mg capsule 500 mg PO TID 14 days #42 caps 04/01/23 sulfamethoxazole 800 1 tab PO BID 10 days #20 tabs 04/03/23 mg-trimethoprim 160 mg tablet (Bactrim DS) Results & Data (ED) Vital Signs Vital Signs - 24 hr 04/08/23 12:21 04/08/23 16:00 Temperature 36 C L Temperature Source Temporal Artery Scan Pulse Rate 95 H Pulse Rate [Bilateral] 65 Respiratory Rate 18 18 Blood Pressure 122/65 Blood Pressure [Right Arm] 165/71 H Blood Pressure Mean 84 Blood Pressure Mean [Right Arm] 102 Blood Pressure Position Sitting Pulse Oximetry 97 98 Oxygen Delivery Method Room Air Room Air Sepsis Recent Fever Within 48 Hours No Sepsis New/Unexplained Change in Mental Status N/A Sepsis Action Taken by Nursing No Action Required Laboratory Data 04/08/23 12:37 04/08/23 12:37 Lab Results 04/08/23 Range/Units 12:37 WBC 12.88 H (4.8-10.8) K/ul RBC 3.08 L (4.20-5.40) M/uL Hgb 8.7 L (12.0-16.0) g/dl Hct 26.9 L (37.0-47.0) % MCV 87.3 (80.0-100.0) fL MCH 28.2 (25.0-34.0) pg MCHC 32.3 (32.0-36.0) g/dL RDW Std Deviation 50.4 H (36.4-46.3) fL RDW Coeff of Pepper 15.9 H (11.5-14.5) % Plt Count 362 (130-400) K/uL MPV 10.4 (9.4-12.4) fL Immature Gran % (Auto) 0.5 % Neut % (Auto) 73.6 % Lymph % (Auto) 20.3 % [place] % (Auto) 4.7 % Eos % (Auto) 0.7 % Baso % (Auto) 0.2 % Neut # (Auto) 9.46 H (1.40-6.50) K/uL Lymph # (Auto) 2.62 (1.20-3.40) K/uL [place] # (Auto) 0.61 H (0.11-0.59) K/uL Eos # (Auto) 0.09 (0.00-0.50) K/uL Baso # (Auto) 0.03 (0.00-0.20) K/uL Immature Gran # (Auto) 0.07 (0.01-0.20) K/uL PT 11.8 (9.0-12.0) Seconds INR 1.1 (0.9-1.1) APTT 34.4 H (21.0-31.0) Seconds PTT Ratio 1.2 Sodium 134 L (136-145) mmol/L Potassium 4.3 (3.5-5.1) mmol/L Chloride 101 (98-107) mmol/L Carbon Dioxide 23 (21-32) mmol/L Anion Gap 10 (3-11) BUN 27 H (6-23) mg/dl Creatinine 1.54 H (0.6-1.2) mg/dl Est Cr Clr Drug Dosing Not Reportable Est GFR ( Amer) 37.6 ml/min Est GFR (Non-Af Amer) 32.4 ml/min BUN/Creatinine Ratio 17.5 (10-20) Glucose 71 (70-99(Fasting)) mg/dl Calcium 8.8 (8.6-10.3) mg/dl Total Bilirubin 0.3 (0.2-1.0) mg/dl AST 12 L (13-39) U/L ALT 9 (7-52) U/L Alkaline Phosphatase 170 H (34-104) U/L Total Protein 7.2 (6.0-8.3) gm/dl Albumin 3.8 (3.4-5.0) gm/dl Globulin 3.4 (2.5-4.0) gm/dl Albumin/Globulin Ratio 1.1 (0.9-2) Administered Medications Atorvastatin Calcium (Atorvastatin 40 Mg Tab) 80 mg PO QPM [facility] Stop: 05/08/23 21:38 Last Admin: 04/08/23 22:25 Dose: 80 mg Documented By: SUDHA Carvedilol (Carvedilol 25 Mg Tab) 25 mg PO BID ANANTH Stop: 05/08/23 21:38 Last Admin: 04/08/23 22:25 Dose: 25 mg Documented By: SUDHA Docusate Sodium (Docusate Sodium 100 Mg Cap) 100 mg PO BID ANANTH Stop: 05/08/23 21:38 Last Admin: 04/08/23 22:25 Dose: 100 mg Documented By: SUDHA Heparin Sodium (Porcine) (Heparin Sod 5,000 Unit/0.5 Ml Vial) 5,000 units SQ Q12 ANANTH Stop: 05/08/23 21:38 Last Admin: 04/08/23 22:25 Dose: 5,000 units Documented By: SUDHA Piperacillin Sod/Tazobactam (Sod 4.5 gm/ Dextrose) 100 mls @ 25 mls/hr IV Q8H [facility]; Protocol Stop: 04/15/23 21:59 Last Admin: 04/08/23 22:32 Dose: 25 mls/hr Documented By: SUDHA Nifedipine (Nifedipine Extended Rel 30 Mg Tabcr) 60 mg PO HS ANANTH Stop: 05/08/23 21:38 Last Admin: 04/08/23 22:25 Dose: 60 mg Documented By: SUDHA Pantoprazole Sodium (Pantoprazole 40 Mg Tab) 40 mg PO HS [facility] Stop: 05/08/23 21:38 Last Admin: 04/08/23 22:25 Dose: 40 mg Documented By: SUDHA Discontinued Medications Piperacillin Sod/Tazobactam Sod (Zosyn) 4.5 gm in 100 mls @ 200 mls/hr IV NOW ONE Stop: 04/08/23 15:36 Last Infusion: 04/08/23 16:46 Dose: Infused Documented By: Admin: 04/08/23 16:15 Dose: 200 mls/hr Documented By: SEAN Imaging Data Radiologist's Impression: Foot X-Ray 04/08/23 12:31 XR foot LT min 3V routine CLINICAL HISTORY: amputation, infection. Left foot pain. COMPARISON STUDY: Left foot radiograph 02/11/2023. FINDINGS: Transmetatarsal amputation of the left foot. The residual metatarsals appear to extend beyond the skin surface. This could be due to the recent postoperative change. However, no definite bony destruction identified. Overlying bandage obscures fine bony detail. The bones are osteopenic. No acute fracture or dislocation within the residual left foot. Vascular calcifications are noted. There is a small posterior calcaneal spur. IMPRESSION: 1. Status post transmetatarsal amputation of the left foot. The residual metatarsals appear to extend beyond the skin surface. This could be due to the recent postoperative change. 2. No definite bony destruction to confirm an osteomyelitis at this time. ACT 112: Negative or not required by law. Electronically signed by: Severiano Brown M.D. 04/08/2023 2:06 PM Discharge Plan Visit Data Chief Complaint: Infection, Wound Stated Complaint: TRANSETATARSILE ABUTATION, INFECTION ED Provider: Codie Mayer Discharge Problem: Non-healing surgical wound Patient Disposition: Admitted As Inpatient Discharge Instructions Interventions: ED Discharge Assessment Last Done: 04/08/23 21:27
[2023-04-08] MEDS ORDERED: PIPERACILLIN/TAZOBACTAM 4.5 GM/100 ML BAG IV ONE (15:07)
--- NOTE | 2023-04-08 17:00 | History & Physical Report ---
Date of Service April 08, 2023 Assessment & Plan (1) Osteomyelitis of left foot: Plan: Positive bone biopsy on 03/28 revealed left foot osteomyelitis following left transmetatarsal amputation Patient was previously on Amoxicillin and Bactrim outpatient Afebrile on arrival; leukocytosis at 12.88 with a neutrophil predominance Blood cultures pending Continue Zosyn 4.5g IV q8h Acetaminophen as needed for pain A.m. CBC, BMP Appreciate podiatry/vascular surgery consults (2) Status post amputation of left foot through metatarsal bone: Plan: On 01/09/[address] Natalio Balderas, podiatry Appreciate podiatry consult Consulted Dr. Umana for LLE BKA (3) Below-knee amputation of right lower extremity: Plan: On 09/02/[address] Wesley Umana Patient follows with Dr. Umana for vascular surgery (4) Type 1 diabetes: Plan: Last A1c 7.7% on 04/01/2023 SSI; continue Lantus 12u HS Continue Novolog BSG ACHS Target BSG range 110-160mg/dL, CF 70, carb ratio 25 T1DM diet as tolerated Adjust regimen as needed (5) Chronic kidney disease: Plan: Avoid nephrotoxic agents Renal dosing for antibiotics Hold furosemide and spironolactone for 1 day, then restart on 04/10 (6) Dyslipidemia: (7) Diabetic ulcer of left heel: Plan [facility] T1DM diet VTE PPx: Heparin 5000u SQ q12h History of Present Illness Chief Complaint: Infection, wound Primary Care Provider: Agustín Jarvis MD Trista is a 77-year-old female with PMH of RLE BKA, s/p left transmetatarsal amputation on 01/09/2023, T1DM, PAD, HTN, and hypothyroidism. She presented at the behest of the wound clinic following positive bone biopsy on 03/30 for acute left foot osteomyelitis. She endorses pain in left lateral foot, as well as the sole of her foot. Patient taking extra strength tylenol 500mg 4-6 tabs daily for pain. She stopped taking tramadol due to constipation. She rates the pain 4/10 at present. She characterizes it as dull, achy pain with intermittent, stabbing pain that last several seconds. No radiation. Patient took all of her morning medications. She denies tobacco, alcohol, smoking, recreational drug use. Patient has been taking outpatient antibiotics: amoxicillin since Sunday 04/01, started on Bactrim on 04/04. Last took plavix last night 04/07. Mild hypertension; otherwise vital stable on arrival. ED course: Ivettsyn ROS: Patient endorses intermittent sweats, left foot pain, and numbness and tingling in LLE. Patient denies fever, chills, CP, chest palpitations, pleuritic CP, SOB, abdominal pain, back pain, urinary s/s, burning with urination, or blood in urine. Allergies Allergy/AdvReac Type Severity Reaction Status Date / Time enflurane Allergy Severe nausea, Verified 04/08/23 11:04 jaundiced Iodinated Contrast Media Allergy Intermediate Hives- IVP Verified 04/08/23 11:04 dye CHECO Inhibitors Allergy Mild hives Verified 04/08/23 11:04 nickel Allergy Mild Redness, Verified 04/08/23 11:04 itching gabapentin AdvReac Intermediate Confusion Verified 04/18/23 15:40 liraglutide [From Victoza] AdvReac Mild Severe Verified 04/08/23 11:04 nausea Home Medications Medication Instructions Recorded Confirmed Type glucagon HCl 1 mg solution for 1 mg subcut Q20M PRN hypoglycemia 06/29/21 04/08/23 Rx injection (Glucagon (HCl) #1 ea Emergency Kit) atorvastatin 80 mg tablet 80 mg PO QPM #90 tabs 02/23/22 04/08/23 Rx cholecalciferol (vitamin D3) 25 1,000 unit PO HS 06/19/22 04/08/23 History mcg (1,000 unit) capsule (Vitamin D3) clopidogrel 75 mg tablet (Plavix) 75 mg PO QAM #90 tabs 07/12/22 04/08/23 Rx mometasone-formoterol HFA 200 2 puff inhalation BID PRN 12/20/22 04/08/23 History mcg-5 mcg/actuation aerosol Shortness Of Breath inhaler (Dulera) carvedilol 25 mg tablet (Coreg) 25 mg PO BID #180 tabs 01/23/23 04/08/23 Rx docusate sodium 100 mg capsule 100 mg PO BID 02/05/23 04/08/23 History (Dulcolax Stool Softener (docusate)) nystatin 100,000 unit/gram topical 1 applic topical BID #60 grams 02/06/23 04/08/23 Rx powder acetaminophen 500 mg tablet 1,000 mg (2 x 500 mg) PO Q8H PRN 02/15/23 04/08/23 Rx (Tylenol Extra Strength) fever or pain #30 tabs insulin lispro 100 unit/mL 1 sliding scale dose subcut ACHS 02/15/23 04/08/23 Rx subcutaneous solution (Humalog #10 mL U-100 Insulin) nifedipine 60 mg tablet,extended 60 mg PO HS #90 tabs 03/04/23 04/08/23 Rx release ferrous gluconate 324 mg (37.5 mg 324 mg PO QAM 03/20/23 04/08/23 History iron) tablet furosemide 20 mg tablet 20 mg PO QAM 03/20/23 04/08/23 History losartan 100 mg tablet 100 mg PO QAM 03/20/23 04/08/23 History omeprazole 20 mg capsule,delayed 20 mg PO HS 03/20/23 04/08/23 History release spironolactone 50 mg tablet 50 mg PO QAM 03/20/23 04/08/23 History levothyroxine 100 mcg tablet See Rx Instructions .Route .COMPLEX 04/08/23 04/08/23 History insulin detemir U-100 100 unit/mL 6 unit (0.06 mL) subcut HS #1 mL 04/18/23 04/08/23 Rx subcutaneous solution (Levemir U-100 Insulin) oxycodone 5 mg tablet 5 - 10 mg (1 - 2 x 5 mg) PO Q6H 04/18/23 Rx PRN moderate-severe pain #24 tabs sodium chloride 1,000 mg soluble 1,000 mg PO DAILY #30 tabs 04/18/23 Rx tablet Past Med/Surg History Medical History (Updated 04/19/23 @ 00:10 by Background Brian) Hyponatremia Acute kidney injury PAD (peripheral artery disease) Wound infection left foot wound - nonhealing and currently wearing a wound vac (03/2023) Sepsis treated inpatient 02/2023 [facility] Dehiscence of amputation stump of left lower extremity reason for upcoming procedure History of COVID-19 12/20/22 [facility] - no symptoms tested positive 02/15/23 at [facility], was told it was related to testing positive within 90 days back in December 2022 Diabetic foot ulcer Left heel with debridement in the past Constipation TMJ derangement no current issues Cerebral aneurysm "very small"/under suveillance S/P angiogram of extremity left leg Conductive hearing loss of right ear Hypothyroidism Vertigo hx Diabetes IDDM Below-knee amputation of right lower extremity Osteoporosis Scleroderma CREST syndrome follows with PCP Chronic GERD Benign essential hypertension Raynauds syndrome Hx of renal cell cancer R renal (2012) s/p right nephrectomy, no chemo/xrt Anemia Chronic History of MRSA infection 04/2017 (right foot - has since been amputated) > "no active infection" Carotid artery stenosis s/p Left CEA (2002), right CEA (1995) Vascular monitoring per recent visit 03/2023 Renal artery stenosis Right renal stent attempted 2010, s/p right nephrectomy 2012 Diverticular disease GERD (gastroesophageal reflux disease) Chronic kidney disease Stage III Deep vein thrombosis RLE DVT dx 2017; "chronic" PCP/vascular monitoring Hyperlipidemia Hypertension Asthma Surgical History (Updated 04/19/23 @ 00:10 by Background Daemon) Status post amputation of left foot through metatarsal bone Status post below knee amputation of right lower extremity History of transmetatarsal amputation of left foot History of esophagogastroduodenoscopy (EGD) S/P amputation right Below the knee amputation History of oophorectomy B/L OVARIES History of carpal tunnel surgery RIGHT HAND, TRIGGER RIGHT FINGER History of left breast biopsy 1997 (benign) H/O sinus surgery History of angioplasty MULTIPLE OF LE'S WITH STENTS TO LOWER EXTREMITIES PLACED History of procedure for peripheral vascular disease LEFT POPLITEAL S/P PERONEAL ARTERY BYPASS 2012; RLE ANGIO WITH INTERVENTION 06/2017 H/O carotid endarterectomy LEFT (2002), RIGHT (1995) History of atherectomy LEFT (02/2017) History of amputation of lesser toe of right foot MULTIPLE TOE AMPUTATIONS/I&D (ALL RT TOES; all the left toes have been amputated) History of cardiac cath 2011= NO STENTS ([facility]) Nausea and vomiting after administration of anesthetic agent Hx of lumpectomy LEFT BREAST (BENIGN) History of hysterectomy MERYL W/ BSO History of nephrectomy RIGHT (2012) renal cell carcinoma History of appendectomy History of cholecystectomy History of colonoscopy History of endoscopic sinus surgery History of cataract surgery RT/LEFT History of tonsillectomy Family History Father Family hx of colon cancer Family history of diabetes mellitus Mother Lung cancer Stroke Unknown Rheumatoid arthritis Other No family history of adverse response to anesthesia No family history of bleeding disorder Social History Smoking Status: Never smoker Second Hand Exposure: No; Do You Dip or Chew Tobacco: No; Hx Alcohol Use: No Hx Substance Use: No Preferred Language: Nigerian Communication Ability: Effective Visual Impairment: No Limitations Hearing Ability: Normal Advertising Dispatch Clerks Supervisor Required: No Beliefs That Will Affect Care: None marital status: Current Living Situation: Spouse Current Living Situation Comment: lives in 1 story home with . home nursing 3x/week current occupational status: retired How many Children do You have: 0 How many Children do You have Comment: able to assist with care as needed. Feels Safe at Home: Yes Diet: diabetic during the past year weight has: decreased > 10 lbs Seatbelt Use: always Do you think of yourself as: straight/heterosexual Gender Identity: Female Assistive Devices: Cane, Walker and Wheelchair Review of Systems 2 Review of Systems: See HPI above Physical Exam 2 Physical Exam: General: no acute distress; non-toxic appearing; well-nourished; cooperative HEENT: normocephalic, atraumatic; no scleral icterus; PERRLA w/ EOMs intact; moist mucus membrane; vision and hearing grossly intact Neck: supple; no lymphadenopathy; trachea midline Skin: warm, dry without signs of tenting; no cyanosis; no rashes, brusing, lesions, or erythema noted CV: chest wall NTP; RRR; S1/S2 normal; no murmurs/rubs/gallops; radial pulses intact and symmetric Lungs: no acute respiratory distress; symmetrical chest wall expansion; clear breath sounds across all lung day w/o adventitious sounds; no wheezing ABD: Soft, NTP; BS present; no rebound/guarding; no ascites; no distention; negative CVA tenderness RLE: BKA; no signs of erythema, infection LLE: Transmetatarsal amputation (see photo below); malodorous; weak pulses intact at DP, PT MSK: no tics or fasciculations Neuro: A&Ox3; normal mood and affect; fluent speech; CN2-12 intact; no focal deficits; decreased sensation in the LLE extending up to the knee Results & Data Results & Data Vital Signs (Past 12 Hours) Vital Signs Temp Pulse Pulse Resp BP BP Pulse Ox 04/08/23 16:00 65 18 165/71 H 98 04/08/23 12:21 36 C L 95 H 18 122/65 97 O2 Del Method 04/08/23 16:00 Room Air 04/08/23 12:21 Room Air Laboratory Results Abnormal lab results 04/08/23 Range/Units 12:37 WBC 12.88 H (4.8-10.8) K/ul RBC 3.08 L (4.20-5.40) M/uL Hgb 8.7 L (12.0-16.0) g/dl Hct 26.9 L (37.0-47.0) % RDW Std Deviation 50.4 H (36.4-46.3) fL RDW Coeff of Pepper 15.9 H (11.5-14.5) % Neut # (Auto) 9.46 H (1.40-6.50) K/uL [place] # (Auto) 0.61 H (0.11-0.59) K/uL APTT 34.4 H (21.0-31.0) Seconds Sodium 134 L (136-145) mmol/L BUN 27 H (6-23) mg/dl Creatinine 1.54 H (0.6-1.2) mg/dl AST 12 L (13-39) U/L Alkaline Phosphatase 170 H (34-104) U/L Diagnostic Findings Foot X-Ray 04/08/23 12:31 XR foot LT min 3V routine CLINICAL HISTORY: amputation, infection. Left foot pain. COMPARISON STUDY: Left foot radiograph 02/11/2023. FINDINGS: Transmetatarsal amputation of the left foot. The residual metatarsals appear to extend beyond the skin surface. This could be due to the recent postoperative change. However, no definite bony destruction identified. Overlying bandage obscures fine bony detail. The bones are osteopenic. No acute fracture or dislocation within the residual left foot. Vascular calcifications are noted. There is a small posterior calcaneal spur. IMPRESSION: 1. Status post transmetatarsal amputation of the left foot. The residual metatarsals appear to extend beyond the skin surface. This could be due to the recent postoperative change. 2. No definite bony destruction to confirm an osteomyelitis at this time. ACT 112: Negative or not required by law. Electronically signed by: Severiano Brown M.D. 04/08/2023 2:06 PM Code Status & VTE Plan Code Status DNR/DNI VTE Prophylaxis Plan VTE Prophylaxis will be ordered: Yes Supervising Physician Co-Signing Physician Notes I personally saw and examined the patient. I independently reviewed the labs, EKG, imaging, problem list, medication list, past medical history and family history. I verified all glasgow points and agree with Severiano Sánchez PA-C with the following exceptions and/or additions: 77 year old female presents to the ER on advice of the wound clinic for ongoing wound dehiscence and left foot osteomyelitis. Follows with podiatry Dr Balderas who plans on seeing her tonight. She is not septic appearing and denies any fever or chills. O/E HS RRR, no murmurs, Chest CTAB, Abdo SNT, Foot wound as per picture above A/P Left foot osteomyelitis - follow up blood cultures. IV Zosyn/daptomycin. Consult podiatry, potentially she requires below knee amputation at this time and will consult vascular surgery Dr Umana regarding this. PG Care Time/CCT Total # of Minutes Spent Total Time Spent with Patient: Total time spent is greater than 50% in coordination of care (as documented) at patient's floor/unit and/or counseling patient: C[place] [address] INT INP/OBS CARE 2/55MIN Patient Type Established Medical Decision Making Moderate Complexity Diagnoses Osteomyelitis of left foot M86.9 Status post amputation of left foot through metatarsal bone Z89.432 Below-knee amputation of right lower extremity S88.111A Type 1 diabetes E10.9 Chronic kidney disease N18.9 Dyslipidemia E78.5 Diabetic ulcer of left heel E11.621; L97.429
[2023-04-08] MEDS ORDERED: DEXTROSE 50% 50 ML SYRINGE IV PRN (21:39)
[2023-04-08] MEDS ORDERED: ATORVASTATIN 40 MG TAB PO SCH (21:39)
[2023-04-08] MEDS ORDERED: GLUCOSE 40% GEL 15 GM TUBE PO PRN (21:39)
[2023-04-08] MEDS ORDERED: CARBOHYDRATES FOR HYPOGLYCEMIA PO PRN (21:39)
[2023-04-08] MEDS ORDERED: GLUCOSE 10 TAB/TUBE PO PRN (21:39)
[2023-04-08] MEDS ORDERED: GLUCAGON FOR INJ 1 MG VIAL SQ PRN (21:39)
[2023-04-08] MEDS ORDERED: FLUTICASONE/VILANTEROL 200/25MCG 14 PUFFS/INHALER INH PRN (21:56)
[2023-04-08] MEDS: PANTOprazole 40 MG TAB PO SCH (22:25)
[2023-04-08] MEDS: DOCUSATE SODIUM 100 MG CAP PO SCH (22:25)
[2023-04-08] MEDS: carvediloL 25 MG TAB PO SCH (22:25)
[2023-04-08] MEDS: HEPARIN SOD 5,000 UNIT/0.5 ML VIAL SQ SCH (22:25)
[2023-04-08] MEDS: NIFEdipine EXTENDED REL 30 MG TABCR PO SCH (22:25)
[2023-04-08] MEDS ORDERED: PIPERACILLIN/TAZOBACTAM 4.5 GM in DEXTROSE 5% MINI-B 100 ML IV SCH (22:30)
[2023-04-08] MEDS: PIPERACILLIN/TAZOBACTAM 4.5 GM in DEXTROSE 5% MINI-B 100 ML IV SCH (22:32)
[2023-04-08] MEDS: LANTUS PER UNIT CHARGE SQ SCH (22:48)
[2023-04-08] MEDS: INSULIN ASPART PER UNIT CHARGE SC SCH (22:48)
[2023-04-08] MEDS ORDERED: PHARMACY GLYCEMIC MGMT CONSULT PRN (23:44)
[2023-04-09] MEDS ORDERED: DAPTOmycin 225 MG in SYRINGE 0 ML IV SCH
[2023-04-09] MEDS ORDERED: ONDANSETRON INJ 2 MG/ML 2 ML VIAL IV STA (03:11)
[2023-04-09] MEDS: LEVOTHYROXINE SODIUM 100 MCG TABLET PO SCH (05:41)
[2023-04-09] MEDS: PIPERACILLIN/TAZOBACTAM 4.5 GM in DEXTROSE 5% MINI-B 100 ML IV SCH ×3 (05:43→22:20)
[2023-04-09] MEDS: ACETAMINOPHEN 325 MG TAB PO PRN ×3 (05:44→20:57)
[2023-04-09 07:10] LABS: Basophils # (auto) 0.02 K/uL (0.00-0.20); Basophils % (auto) 0.2 %; Eosinophils # (auto) 0.06 K/uL (0.00-0.50); Eosinophils % (auto) 0.7 %; Hematocrit (blood only) 23.1 % (37.0-47.0); Hemoglobin 7.4 g/dl (12.0-16.0); Immature Granulocytes # (auto) 0.04 K/uL (0.01-0.20); Immature Granulocytes % (auto) 0.5 %; Lymphocytes # (auto) 2.43 K/uL (1.20-3.40); Lymphocytes % (auto) 29.1 %; Mean Corpuscular Hemoglobin 28.2 pg (25.0-34.0); Mean Corpuscular Volume 88.2 fL (80.0-100.0); Mean Platelet Volume 10.3 fL (9.4-12.4); Monocytes # (auto) 0.53 K/uL (0.11-0.59); Monocytes % (auto) 6.3 %; Neutrophils # (auto) 5.27 K/uL (1.40-6.50); Neutrophils % (auto) 63.2 %; Platelet Count 262 K/uL (130-400); RDW Coefficient of Variation 15.9 % (11.5-14.5); RDW Standard Deviation 51.9 fL (36.4-46.3); Red Blood Count 2.62 M/uL (4.20-5.40); White Blood Count 8.35 K/ul (4.8-10.8)
[2023-04-09 07:34] LABS: Anisocytosis Present
[2023-04-09 07:48] LABS: BUN Creatinine Ratio 17.2 (10-20); Creatinine Clr Calc Pharmacy 21.9 ml/min; Est GFR (African American) 29.9 ml/min; Est GFR (Non-African American) 25.8 ml/min; Potassium 4.5 mmol/L (3.5-5.1)
[2023-04-09] MEDS ORDERED: LACTATED RINGER'S 1,000 ML IV ONE (08:53)
[2023-04-09] MEDS: carvediloL 25 MG TAB PO SCH ×2 (08:55→20:58)
[2023-04-09] MEDS: LOSARTAN POTASSIUM 50 MG TAB PO SCH (08:55)
[2023-04-09] MEDS: INSULIN ASPART PER UNIT CHARGE SC SCH ×4 (08:56→21:16)
[2023-04-09] MEDS ORDERED: CLOPIDOGREL BISULFATE 75 MG TAB PO SCH (09:00)
[2023-04-09] MEDS: FERROUS GLUCONATE 324 MG TAB PO SCH (09:04)
[2023-04-09] MEDS: DOCUSATE SODIUM 100 MG CAP PO SCH ×2 (09:04→20:58)
[2023-04-09 09:27] LABS: Base Excess VBG -2.8 mEq/L; HCO3 VBG 22 mmol/L; Oxygen Saturation VBG < 60.0 %; PCO2 VBG 37 mmHg (38-50); PO2 VBG 30 mmHg; pH VBG 7.38 (7.36-7.41)
--- NOTE | 2023-04-09 09:31 | Podiatry Consultation ---
Date of Consultation April 08, 2023 Assessment & Plan (1) Osteomyelitis of left foot: (2) Non-healing surgical wound: (3) Diabetic ulcer of left heel: Plan Patient was seen at bedside in the emergency department. We discussed at length continued treatment options for her nonhealing transmetatarsal amputation. She has dealt with this on the other side, the right lower extremity, in the past and has failed more distal amputations there as well. At this point, she is amenable to, and would benefit most from, a more proximal amputation. We will work on getting this process initiated. She would benefit from a consult with Dr. Umana for this or orthopedics, if they handle the amputations at this facility. Patient understands and, again, is amenable to this for now. I will continue to follow her until this surgery is scheduled, though without any future foot and ankle procedures likely, will formally sign off. We are always happy to help with any foot and ankle concerns. Please do not hesitate to reconsult as needed. History of Present Illness Reason for Consultation: Left foot transmetatarsal limitation continued dehiscence Attending Physician: Sebastián Ramey History of Present Illness This patient is a long-standing patient of ours who has attempted multiple surgical interventions for left foot ischemia. Most recently, she had a revisional transmetatarsal imitation performed here a couple of weeks ago. With inadequate plantar flap to consider primary closure, a wound VAC was reapplied. Over the last few days, she states that it has gotten more painful along the inside and outside of the surgical site as well as noted increased drainage and increased duskiness to the surgical site overall. She has had a previous prior higher-level imitation on the right side and is increasingly excepting that this left lower extremity is going the same way as the right. She denies any systemic signs of infection but does admit to these increasing local changes. She recently went to wound care, earlier today, who sent her to the emergency department consult us as well. Allergies Allergy/AdvReac Type Severity Reaction Status Date / Time enflurane Allergy Severe nausea, Verified 04/08/23 11:04 jaundiced Iodinated Contrast Media Allergy Intermediate Hives- IVP Verified 04/08/23 11:04 dye CHECO Inhibitors Allergy Mild hives Verified 04/08/23 11:04 nickel Allergy Mild Redness, Verified 04/08/23 11:04 itching liraglutide [From Victoza] AdvReac Mild Severe Verified 04/08/23 11:04 nausea Home Medications Medication Instructions Recorded Confirmed Type glucagon HCl 1 mg solution for 1 mg subcut Q20M PRN hypoglycemia 06/29/21 04/08/23 Rx injection (Glucagon (HCl) #1 ea Emergency Kit) atorvastatin 80 mg tablet 80 mg PO QPM #90 tabs 02/23/22 04/08/23 Rx cholecalciferol (vitamin D3) 25 1,000 unit PO HS 06/19/22 04/08/23 History mcg (1,000 unit) capsule (Vitamin D3) clopidogrel 75 mg tablet (Plavix) 75 mg PO QAM #90 tabs 07/12/22 04/08/23 Rx mometasone-formoterol HFA 200 2 puff inhalation BID PRN 12/20/22 04/08/23 History mcg-5 mcg/actuation aerosol Shortness Of Breath inhaler (Dulera) carvedilol 25 mg tablet (Coreg) 25 mg PO BID #180 tabs 01/23/23 04/08/23 Rx docusate sodium 100 mg capsule 100 mg PO BID 02/05/23 04/08/23 History (Dulcolax Stool Softener (docusate)) nystatin 100,000 unit/gram topical 1 applic topical BID #60 grams 02/06/23 04/08/23 Rx powder acetaminophen 500 mg tablet 1,000 mg (2 x 500 mg) PO Q8H PRN 02/15/23 04/08/23 Rx (Tylenol Extra Strength) fever or pain #30 tabs insulin detemir U-100 100 unit/mL 12 unit (0.12 mL) subcut HS #1 mL 02/15/23 04/08/23 Rx subcutaneous solution (Levemir U-100 Insulin) insulin lispro 100 unit/mL 1 sliding scale dose subcut ACHS 02/15/23 04/08/23 Rx subcutaneous solution (Humalog #10 mL U-100 Insulin) nifedipine 60 mg tablet,extended 60 mg PO HS #90 tabs 03/04/23 04/08/23 Rx release ferrous gluconate 324 mg (37.5 mg 324 mg PO QAM 03/20/23 04/08/23 History iron) tablet furosemide 20 mg tablet 20 mg PO QAM 03/20/23 04/08/23 History losartan 100 mg tablet 100 mg PO QAM 03/20/23 04/08/23 History omeprazole 20 mg capsule,delayed 20 mg PO HS 03/20/23 04/08/23 History release spironolactone 50 mg tablet 50 mg PO QAM 03/20/23 04/08/23 History amoxicillin 500 mg capsule 500 mg PO TID 14 days #42 caps 04/01/23 04/08/23 Rx sulfamethoxazole 800 1 tab PO BID 10 days #20 tabs 04/03/23 04/08/23 Rx mg-trimethoprim 160 mg tablet (Bactrim DS) levothyroxine 100 mcg tablet See Rx Instructions .Route .COMPLEX 04/08/23 04/08/23 History Patient History Medical History (Updated 04/09/23 @ 09:49 by Marzena Pastor PA-C) PAD (peripheral artery disease) Wound infection left foot wound - nonhealing and currently wearing a wound vac (03/2023) Sepsis treated inpatient 02/2023 [facility] Dehiscence of amputation stump of left lower extremity reason for upcoming procedure History of COVID-19 12/20/22 [facility] - no symptoms tested positive 02/15/23 at [facility], was told it was related to testing positive within 90 days back in December 2022 Diabetic foot ulcer Left heel with debridement in the past Constipation TMJ derangement no current issues Cerebral aneurysm "very small"/under suveillance S/P angiogram of extremity left leg Conductive hearing loss of right ear Hypothyroidism Vertigo hx Diabetes IDDM Below-knee amputation of right lower extremity Osteoporosis Scleroderma CREST syndrome follows with PCP Chronic GERD Benign essential hypertension Raynauds syndrome Hx of renal cell cancer R renal (2012) s/p right nephrectomy, no chemo/xrt Anemia Chronic History of MRSA infection 04/2017 (right foot - has since been amputated) > "no active infection" Carotid artery stenosis s/p Left CEA (2002), right CEA (1995) Vascular monitoring per recent visit 03/2023 Renal artery stenosis Right renal stent attempted 2010, s/p right nephrectomy 2012 Diverticular disease GERD (gastroesophageal reflux disease) Chronic kidney disease Stage III Deep vein thrombosis RLE DVT dx 2017; "chronic" PCP/vascular monitoring Hyperlipidemia Hypertension Asthma Surgical History Status post amputation of left foot through metatarsal bone Status post below knee amputation of right lower extremity History of transmetatarsal amputation of left foot History of esophagogastroduodenoscopy (EGD) S/P amputation right Below the knee amputation History of oophorectomy B/L OVARIES History of carpal tunnel surgery RIGHT HAND, TRIGGER RIGHT FINGER History of left breast biopsy 1997 (benign) H/O sinus surgery History of angioplasty MULTIPLE OF LE'S WITH STENTS TO LOWER EXTREMITIES PLACED History of procedure for peripheral vascular disease LEFT POPLITEAL S/P PERONEAL ARTERY BYPASS 2012; RLE ANGIO WITH INTERVENTION 06/2017 H/O carotid endarterectomy LEFT (2002), RIGHT (1995) History of atherectomy LEFT (02/2017) History of amputation of lesser toe of right foot MULTIPLE TOE AMPUTATIONS/I&D (ALL RT TOES; all the left toes have been amputated) History of cardiac cath 2011= NO STENTS ([facility]) Nausea and vomiting after administration of anesthetic agent Hx of lumpectomy LEFT BREAST (BENIGN) History of hysterectomy MERYL W/ BSO History of nephrectomy RIGHT (2012) renal cell carcinoma History of appendectomy History of cholecystectomy History of colonoscopy History of endoscopic sinus surgery History of cataract surgery RT/LEFT History of tonsillectomy Family History Father Family hx of colon cancer Family history of diabetes mellitus Mother Lung cancer Stroke Unknown Rheumatoid arthritis Other No family history of adverse response to anesthesia No family history of bleeding disorder Social History Smoking Status: Never smoker Second Hand Exposure: No; Do You Dip or Chew Tobacco: No; Hx Alcohol Use: No Hx Substance Use: No Preferred Language: Telugu Communication Ability: Effective Visual Impairment: No Limitations Hearing Ability: Normal Building Inspection Engineer Required: No Beliefs That Will Affect Care: None marital status: Current Living Situation: Spouse Current Living Situation Comment: lives in 1 story home with . home n ursing 3x/week current occupational status: retired How many Children do You have: 0 How many Children do You have Comment: able to assist with care as needed. Other Information That Helps Us Care for You: No Feels Safe at Home: Yes Safety Concerns: Feels Safe At This Time Diet: diabetic during the past year weight has: decreased > 10 lbs Seatbelt Use: always Do you think of yourself as: straight/heterosexual Gender Identity: Female Assistive Devices: Cane, Walker and Wheelchair Results & Data Vital Signs (Past 12 Hours) Vital Signs Temp Pulse Resp BP BP Pulse Ox O2 Del Method 04/09/23 08:42 86/48 L 04/09/23 07:47 36.7 C 63 14 95/48 L 96 Room Air 04/08/23 21:30 36.7 C 71 18 148/64 H 97 Room Air
[2023-04-09 09:48] LABS: C Reactive Protein 9.17 mg/dl (0-0.5)
--- NOTE | 2023-04-09 09:53 | Consultation ---
Date of Consultation April 09, 2023 Assessment & Plan (1) PAD (peripheral artery disease): Plan Pt with extensive hx of PAD, now with nonhealing/necrotic LLE TMA wound. Unfortunately, there are no targets for further revascularization attempts, nor any further debridement to be attempted, to salvage the limb. After discussion with Dr Umana, recommends pt undergo LLE BKA in OR on SATURDAY. Procedure discussed at length with patient, she expresses understanding and agreement. History of Present Illness Reason for Consultation: LLE TMA necrosis Attending Physician: Sebastián Ramey History of Present Illness 77 yo f with multiple medical problems, including CKD, severe PAD, hx of RLE BKA, HTN, DMII, carotid stenosis, hypothyroidism, GERD, anemia, admitted with worsening necrosis and nonhealing of her LLE TMA site, seen in consultation today for possible BKA. Pt well known to Dr Umana's vascular surgery practice for severe PAD and carotid stenosis. She has a remote hx of multiple revascularization attempts to RLE prior to her BKA, as well as a LLE fem- peroneal vein bypass performed in the remote past which has undergone multiple revascularization procedures to maintain patentcy. She unfortunately developed toe necrosis a few months ago which has become a nonhealing TMA wound. At this point, there are no further surgical options to salvage the foot. Pt states she was recently fitted for a new RLE BKA prosthesis which is much better than her old one, and she is hoping this will help her in therapy during her recovery from her upcoming LLE BKA. States she had severe pain in LLE over the weekend, but less pain yesterday. She saw the WC yesterday, and they advised her to come to ED after speaking with Dr Balderas. She was admitted d/t the tissue necrosis and possible infection. Currently on IV abx. States her pain is well controlled at this point and that she understands the BKA is her only option. Admits generalized fatigue. Denies QUINTERO, fever, chest pain, SOB, abd pain, N/V, other complaints. Foot x-ray does not demonstrate any definite osteomyelitis. Allergies Allergy/AdvReac Type Severity Reaction Status Date / Time enflurane Allergy Severe nausea, Verified 04/08/23 11:04 jaundiced Iodinated Contrast Media Allergy Intermediate Hives- IVP Verified 04/08/23 11:04 dye CHECO Inhibitors Allergy Mild hives Verified 04/08/23 11:04 nickel Allergy Mild Redness, Verified 04/08/23 11:04 itching liraglutide [From Victoza] AdvReac Mild Severe Verified 04/08/23 11:04 nausea Home Medications Medication Instructions Recorded Confirmed Type glucagon HCl 1 mg solution for 1 mg subcut Q20M PRN hypoglycemia 06/29/21 04/08/23 Rx injection (Glucagon (HCl) #1 ea Emergency Kit) atorvastatin 80 mg tablet 80 mg PO QPM #90 tabs 02/23/22 04/08/23 Rx cholecalciferol (vitamin D3) 25 1,000 unit PO HS 06/19/22 04/08/23 History mcg (1,000 unit) capsule (Vitamin D3) clopidogrel 75 mg tablet (Plavix) 75 mg PO QAM #90 tabs 07/12/22 04/08/23 Rx mometasone-formoterol HFA 200 2 puff inhalation BID PRN 12/20/22 04/08/23 History mcg-5 mcg/actuation aerosol Shortness Of Breath inhaler (Dulera) carvedilol 25 mg tablet (Coreg) 25 mg PO BID #180 tabs 01/23/23 04/08/23 Rx docusate sodium 100 mg capsule 100 mg PO BID 02/05/23 04/08/23 History (Dulcolax Stool Softener (docusate)) nystatin 100,000 unit/gram topical 1 applic topical BID #60 grams 02/06/23 04/08/23 Rx powder acetaminophen 500 mg tablet 1,000 mg (2 x 500 mg) PO Q8H PRN 02/15/23 04/08/23 Rx (Tylenol Extra Strength) fever or pain #30 tabs insulin detemir U-100 100 unit/mL 12 unit (0.12 mL) subcut HS #1 mL 02/15/23 04/08/23 Rx subcutaneous solution (Levemir U-100 Insulin) insulin lispro 100 unit/mL 1 sliding scale dose subcut ACHS 02/15/23 04/08/23 Rx subcutaneous solution (Humalog #10 mL U-100 Insulin) nifedipine 60 mg tablet,extended 60 mg PO HS #90 tabs 03/04/23 04/08/23 Rx release ferrous gluconate 324 mg (37.5 mg 324 mg PO QAM 03/20/23 04/08/23 History iron) tablet furosemide 20 mg tablet 20 mg PO QAM 03/20/23 04/08/23 History losartan 100 mg tablet 100 mg PO QAM 03/20/23 04/08/23 History omeprazole 20 mg capsule,delayed 20 mg PO HS 03/20/23 04/08/23 History release spironolactone 50 mg tablet 50 mg PO QAM 03/20/23 04/08/23 History amoxicillin 500 mg capsule 500 mg PO TID 14 days #42 caps 04/01/23 04/08/23 Rx sulfamethoxazole 800 1 tab PO BID 10 days #20 tabs 04/03/23 04/08/23 Rx mg-trimethoprim 160 mg tablet (Bactrim DS) levothyroxine 100 mcg tablet See Rx Instructions .Route .COMPLEX 04/08/23 04/08/23 History Patient History Medical History (Updated 04/09/23 @ 09:49 by Marzena Pastor PA-C) PAD (peripheral artery disease) Wound infection left foot wound - nonhealing and currently wearing a wound vac (03/2023) Sepsis treated inpatient 02/2023 [facility] Dehiscence of amputation stump of left lower extremity reason for upcoming procedure History of COVID-19 12/20/22 [facility] - no symptoms tested positive 02/15/23 at [facility], was told it was related to testing positive within 90 days back in December 2022 Diabetic foot ulcer Left heel with debridement in the past Constipation TMJ derangement no current issues Cerebral aneurysm "very small"/under suveillance S/P angiogram of extremity left leg Conductive hearing loss of right ear Hypothyroidism Vertigo hx Diabetes IDDM Below-knee amputation of right lower extremity Osteoporosis Scleroderma CREST syndrome follows with PCP Chronic GERD Benign essential hypertension Raynauds syndrome Hx of renal cell cancer R renal (2012) s/p right nephrectomy, no chemo/xrt Anemia Chronic History of MRSA infection 04/2017 (right foot - has since been amputated) > "no active infection" Carotid artery stenosis s/p Left CEA (2002), right CEA (1995) Vascular monitoring per recent visit 03/2023 Renal artery stenosis Right renal stent attempted 2010, s/p right nephrectomy 2012 Diverticular disease GERD (gastroesophageal reflux disease) Chronic kidney disease Stage III Deep vein thrombosis RLE DVT dx 2017; "chronic" PCP/vascular monitoring Hyperlipidemia Hypertension Asthma Surgical History Status post amputation of left foot through metatarsal bone Status post below knee amputation of right lower extremity History of transmetatarsal amputation of left foot History of esophagogastroduodenoscopy (EGD) S/P amputation right Below the knee amputation History of oophorectomy B/L OVARIES History of carpal tunnel surgery RIGHT HAND, TRIGGER RIGHT FINGER History of left breast biopsy 1997 (benign) H/O sinus surgery History of angioplasty MULTIPLE OF LE'S WITH STENTS TO LOWER EXTREMITIES PLACED History of procedure for peripheral vascular disease LEFT POPLITEAL S/P PERONEAL ARTERY BYPASS 2012; RLE ANGIO WITH INTERVENTION 06/2017 H/O carotid endarterectomy LEFT (2002), RIGHT (1995) History of atherectomy LEFT (02/2017) History of amputation of lesser toe of right foot MULTIPLE TOE AMPUTATIONS/I&D (ALL RT TOES; all the left toes have been amputated) History of cardiac cath 2011= NO STENTS ([facility]) Nausea and vomiting after administration of anesthetic agent Hx of lumpectomy LEFT BREAST (BENIGN) History of hysterectomy MERYL W/ BSO History of nephrectomy RIGHT (2012) renal cell carcinoma History of appendectomy History of cholecystectomy History of colonoscopy History of endoscopic sinus surgery History of cataract surgery RT/LEFT History of tonsillectomy Family History Father Family hx of colon cancer Family history of diabetes mellitus Mother Lung cancer Stroke Unknown Rheumatoid arthritis Other No family history of adverse response to anesthesia No family history of bleeding disorder Social History Smoking Status: Never smoker Second Hand Exposure: No; Do You Dip or Chew Tobacco: No; Hx Alcohol Use: No Hx Substance Use: No Preferred Language: Lao Communication Ability: Effective Visual Impairment: No Limitations Hearing Ability: Normal 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 home nursing 3x/week current occupational status: retired How many Children do You have: 0 How many Children do You have Comment: able to assist with care as needed. Other Information That Helps Us Care for You: No Feels Safe at Home: Yes Safety Concerns: Feels Safe At This Time Diet: diabetic during the past year weight has: decreased > 10 lbs Seatbelt Use: always Do you think of yourself as: straight/heterosexual Gender Identity: Female Assistive Devices: Cane, Glasses, Prosthesis, Special Shoe, Walker and Wheelchair Review of Systems Review of Systems: All systems reviewed & are unremarkable except as noted in HPI & below Physical Exam Constitutional: WD/WN, vitals as above + thin and cooperative; not in distress ENMT: Ears: no hearing impairment Neck: trachea midline Respiratory: normal respiratory effort Auscultation: lungs clear to auscultation bilaterally and + diminished lung sounds Cardiovascular: Rate/Rhythm: regular rate and regular rhythm Vessels: femoral pulses present, posterior tibial pulses present (RLE BKA, LLE faint doppler), dorsalis pedis pulses present (RLE BKA, LLE TMA) and radial pulses present; + abnormal peripheral pulses Gastrointestinal (Abdomen): Inspection/Auscultation: abdomen normal to inspection and normal bowel sounds Percussion/Palpation: abdomen soft; abdomen nontender Musculoskeletal: Extremities: strength 5/5 throughout and + amputation noted (RLE BKA, LLE TMA) Skin: no rashes, warm and dry + wound (LLE open TMA with pale/necrotic tissue.) Neurologic: moves all extremities and awake; no focal motor deficits and not confused Psychiatric: A+Ox3, euthymic affect Results & Data Vital Signs (Past 12 Hours) Vital Signs Temp Pulse Resp BP BP Pulse Ox O2 Del Method 04/09/23 08:42 86/48 L 04/09/23 07:47 36.7 C 63 14 95/48 L 96 Room Air
[2023-04-09 10:05] LABS: Thyroid Stimulating Hormone 5.512 uIu/ml (0.300-4.500)
[2023-04-09 10:40] LABS: T4 Free Thyroxine 1.22 ng/dl (0.61-1.60)
--- NOTE | 2023-04-09 15:11 | Pharmacy Report ---
Pharmacy Glycemic Short Note 2 - Date of Service April 09, 2023 - Glycemic Short BSG Results (Last 24 hours): 04/08/23 04/09/23 04/09/23 21:45 03:22 06:39 Glucose 129 H POC Glucose 202 H 163 H 04/09/23 04/09/23 07:40 11:42 Glucose POC Glucose 141 H 161 H OUTPATIENT ANTIDIABETIC REGIMEN: * Levemir 12 units SQ HS * Humalog ACHS HbA1c: 7.7% on 04/01/23 ASSESSMENT: * 77 y/o F admitted for foot osteomyelitis currently getting IV antibiotics. Patient with history of diabetes managed on basal and bolus insulins at home. * Home basal dose was ordered last night. Fasting BSG today was 129 mg/dl. Continued the same for HS. * Novolog parameters ordered based on stress of 2. Pre-lunch BSG was 161 mg/dl. Continued the same. PLAN FOR INPATIENT GLYCEMIC CONTROL: * Basal insulin * Lantus 12 units SQ HS * Bolus insulin * NovoLog per scale ACHS or Q6hrs while NPO * Goal Range: Low 110 mg/dL - High 140 mg/dL * Correction Factor: 45 mg/dL/unit * Nutritional / Prandial insulin per carb ratio of 1 unit per 14 grams CHO consumed
[2023-04-09] MEDS: PANTOprazole 40 MG TAB PO SCH (20:58)
[2023-04-09] MEDS: NIFEdipine EXTENDED REL 30 MG TABCR PO SCH (20:58)
[2023-04-09] MEDS: LANTUS PER UNIT CHARGE SQ SCH (21:16)
--- NOTE | 2023-04-09 21:42 | Hospitalist Progress Note ---
Date of Service April 09, 2023 Assessment & Plan (1) Osteomyelitis of left foot: Plan: "Type 1 diabetes with diabetic peripheral angiopathy with possible gangrene" Positive bone biopsy on 03/28 revealed left foot osteomyelitis following left transmetatarsal amputation Patient was previously on Amoxicillin and Bactrim outpatient Afebrile on arrival; leukocytosis at 12.88 with a neutrophil predominance Blood cultures pending Continue Zosyn 4.5g IV q8h Acetaminophen as needed for pain Appreciate podiatry/vascular surgery consults: plan for Beloww knee amputation on . (2) Status post amputation of left foot through metatarsal bone: Plan: On 01/09/[address] Natalio Balderas, podiatry Appreciate podiatry consult Consulted Dr. Umana for LLE BKA (3) Below-knee amputation of right lower extremity: Plan: On 09/02/[address] Wesley Umana Patient follows with Dr. Umana for vascular surgery (4) Type 1 diabetes: Plan: Last A1c 7.7% on 04/01/2023 SSI; continue Lantus 12u HS Continue Novolog BSG ACHS Target BSG range 110-160mg/dL, CF 70, carb ratio 25 T1DM diet as tolerated Adjust regimen as needed (5) Chronic kidney disease: Plan: Avoid nephrotoxic agents Renal dosing for antibiotics Hold furosemide and spironolactone for 1 day, then restart on 04/10 (6) Dyslipidemia: (7) Diabetic ulcer of left heel: Plan Disposition: Admit to [facility] DNR/DNI T1DM diet VTE PPx: Heparin 5000u SQ q12h Admission and Anticipated Discharge Date Admission Date: April 09, 2023 Subjective Patient reports no new symptoms. Review of Systems Review of Systems: All systems reviewed & are unremarkable except as noted in HPI & below Results & Data Results & Data Vital Signs (Past 12 Hours) Vital Signs Temp Pulse Resp BP Pulse Ox O2 Del Method 04/09/23 20:54 36.9 C 69 18 139/55 L 97 Room Air 04/09/23 13:56 36.9 C 68 116/57 L 96 Room Air 04/09/23 11:12 36.8 C 65 14 94/49 L 97 Room Air PG Care Time/CCT Total # of Minutes Spent Total Time Spent with Patient: Total time spent is greater than 50% in coordination of care (as documented) at patient's floor/unit and/or counseling patient: Coding Level of Care Code 11633 SUB INP/OBS CARE MIN Diagnoses Osteomyelitis of left foot M86.9 Status post amputation of left foot through metatarsal bone Z89.432 Below-knee amputation of right lower extremity S88.111A Type 1 diabetes E10.9 Chronic kidney disease N18.9 Dyslipidemia E78.5 Diabetic ulcer of left heel E11.621; L97.429
[2023-04-10] MEDS: PIPERACILLIN/TAZOBACTAM 4.5 GM in DEXTROSE 5% MINI-B 100 ML IV SCH ×3 (05:07→22:06)
[2023-04-10] MEDS: ACETAMINOPHEN 325 MG TAB PO PRN ×3 (05:07→21:46)
[2023-04-10] MEDS: LEVOTHYROXINE SODIUM 100 MCG TABLET PO SCH (05:07)
[2023-04-10 07:26] LABS: Hematocrit (blood only) 21.4 % (37.0-47.0); Mean Corpuscular Hemoglobin 28.2 pg (25.0-34.0); Mean Corpuscular Hgb Conc 32.7 g/dL (32.0-36.0); Mean Corpuscular Volume 86.3 fL (80.0-100.0); Mean Platelet Volume 10.5 fL (9.4-12.4); Platelet Count 224 K/uL (130-400); RDW Coefficient of Variation 15.9 % (11.5-14.5); RDW Standard Deviation 50.2 fL (36.4-46.3); Red Blood Count 2.48 M/uL (4.20-5.40); White Blood Count 9.24 K/ul (4.8-10.8)
[2023-04-10 07:51] LABS: Potassium 4.1 mmol/L (3.5-5.1)
[2023-04-10 07:57] LABS: BUN Creatinine Ratio 20.3 (10-20); Creatinine Clr Calc Pharmacy 23.7 ml/min; Est GFR (African American) 32.9 ml/min; Est GFR (Non-African American) 28.4 ml/min
[2023-04-10] MEDS ORDERED: SODIUM CHLORIDE 0.9% 250 ML IV PRN (08:01)
[2023-04-10] MEDS: SPIRONOLACTONE 25 MG TAB PO SCH (08:21)
[2023-04-10] MEDS: FUROSEMIDE 20 MG TAB PO SCH (08:21)
[2023-04-10] MEDS: DOCUSATE SODIUM 100 MG CAP PO SCH ×2 (08:21→21:43)
[2023-04-10] MEDS: FERROUS GLUCONATE 324 MG TAB PO SCH (08:21)
[2023-04-10] MEDS: LOSARTAN POTASSIUM 50 MG TAB PO SCH (08:21)
[2023-04-10] MEDS: carvediloL 25 MG TAB PO SCH ×2 (08:22→21:43)
[2023-04-10] MEDS: INSULIN ASPART PER UNIT CHARGE SC SCH ×4 (08:25→21:50)
--- NOTE | 2023-04-10 09:01 | Anesthesiology Consultation ---
Date of Service April 10, 2023 Assessment & Plan Chart Review Chart Review: Acceptable Risk for Surgery and Patient NOT seen in Pre Admission Testing Consults Requested none History Surgery Operation Date: 04/11/23 13:00 Proposed Procedures p Left Leg Below Knee Amputation - Wesley Umana MD Height/Weight Height: 5 ft 5 in Weight: 53.977 kg Allergies Allergy/AdvReac Type Severity Reaction Status Date / Time enflurane Allergy Severe nausea, Verified 04/08/23 11:04 jaundiced Iodinated Contrast Media Allergy Intermediate Hives- IVP Verified 04/08/23 11:04 dye CHECO Inhibitors Allergy Mild hives Verified 04/08/23 11:04 nickel Allergy Mild Redness, Verified 04/08/23 11:04 itching liraglutide [From Victoza] AdvReac Mild Severe Verified 04/08/23 11:04 nausea Medications Home Medications Medication Instructions Recorded Confirmed Last Taken glucagon HCl 1 mg solution for 1 mg subcut Q20M PRN hypoglycemia 06/29/21 04/08/23 Unknown injection (Glucagon (HCl) #1 ea Emergency Kit) atorvastatin 80 mg tablet 80 mg PO QPM #90 tabs 02/23/22 04/08/23 04/07/23 cholecalciferol (vitamin D3) 25 1,000 unit PO HS 06/19/22 04/08/23 04/07/23 mcg (1,000 unit) capsule (Vitamin D3) clopidogrel 75 mg tablet (Plavix) 75 mg PO QAM #90 tabs 07/12/22 04/08/23 04/08/23 mometasone-formoterol HFA 200 2 puff inhalation BID PRN 12/20/22 04/08/23 02/10/23 mcg-5 mcg/actuation aerosol Shortness Of Breath inhaler (Dulera) carvedilol 25 mg tablet (Coreg) 25 mg PO BID #180 tabs 01/23/23 04/08/23 04/08/23 docusate sodium 100 mg capsule 100 mg PO BID 02/05/23 04/08/23 04/08/23 (Dulcolax Stool Softener (docusate)) nystatin 100,000 unit/gram topical 1 applic topical BID #60 grams 02/06/23 04/08/23 Unknown powder acetaminophen 500 mg tablet 1,000 mg (2 x 500 mg) PO Q8H PRN 02/15/23 04/08/23 03/26/23 17:00 (Tylenol Extra Strength) fever or pain #30 tabs insulin detemir U-100 100 unit/mL 12 unit (0.12 mL) subcut HS #1 mL 02/15/23 04/08/23 04/07/23 subcutaneous solution (Levemir U-100 Insulin) insulin lispro 100 unit/mL 1 sliding scale dose subcut ACHS 02/15/23 04/08/23 04/08/23 subcutaneous solution (Humalog #10 mL U-100 Insulin) nifedipine 60 mg tablet,extended 60 mg PO HS #90 tabs 03/04/23 04/08/23 04/07/23 release ferrous gluconate 324 mg (37.5 mg 324 mg PO QAM 03/20/23 04/08/23 04/08/23 iron) tablet furosemide 20 mg tablet 20 mg PO QAM 03/20/23 04/08/23 04/08/23 losartan 100 mg tablet 100 mg PO QAM 03/20/23 04/08/23 04/08/23 omeprazole 20 mg capsule,delayed 20 mg PO HS 03/20/23 04/08/23 04/07/23 release spironolactone 50 mg tablet 50 mg PO QAM 03/20/23 04/08/23 04/08/23 amoxicillin 500 mg capsule 500 mg PO TID 14 days #42 caps 04/01/23 04/08/23 04/08/23 sulfamethoxazole 800 1 tab PO BID 10 days #20 tabs 04/03/23 04/08/23 04/08/23 mg-trimethoprim 160 mg tablet (Bactrim DS) levothyroxine 100 mcg tablet See Rx Instructions .Route .COMPLEX 04/08/23 04/08/23 04/08/23 Active Medications Generic Name Dose Route Start Last Admin Trade Name Freq PRN Reason Stop Dose Admin Acetaminophen 650 mg 04/08/23 21:39 04/10/23 05:07 Acetaminophen 325 Mg Tab PO 05/08/23 21:38 650 mg Q4H PRN Administration pain/fever Atorvastatin Calcium 80 mg 04/08/23 21:39 04/08/23 22:25 Atorvastatin 40 Mg Tab PO 05/08/23 21:38 80 mg QPM ANANTH Administration Carvedilol 25 mg 04/08/23 21:39 11/08/23 08:22 Carvedilol 25 Mg Tab PO 05/08/23 21:38 25 mg BID ANANTH Administration Clopidogrel Bisulfate 75 mg 04/09/23 09:00 04/09/23 09:20 Clopidogrel Bisulfate 75 Mg Tab PO 05/09/23 08:59 Not Given QAM ANANTH Docusate Sodium 100 mg 04/08/23 21:39 04/10/23 08:21 Docusate Sodium 100 Mg Cap PO 05/08/23 21:38 100 mg BID ANANTH Administration Ferrous Gluconate 324 mg 04/09/23 09:00 04/10/23 08:21 Ferrous Gluconate 324 Mg Tab PO 05/09/23 08:59 324 mg QAM ANANTH Administration Furosemide 20 mg 04/10/23 09:00 04/10/23 08:21 Furosemide 20 Mg Tab PO 05/10/23 08:59 20 mg QAM ANANTH Administration Heparin Sodium (Porcine) 5,000 units 04/08/23 21:39 04/08/23 22:25 Heparin Sod 5,000 Unit/0.5 Ml Vial SQ 05/08/23 21:38 5,000 units Q12 ANANTH Administration Piperacillin Sod/Tazobactam 100 mls @ 25 mls/hr 04/08/23 22:00 04/10/23 05:07 Sod 4.5 gm/ Dextrose IV 04/15/23 21:59 25 mls/hr Q8H ANANTH Administration Protocol Insulin Aspart 0 units 04/08/23 21:39 04/10/23 08:25 Insulin Aspart Per Unit Charge SC 05/08/23 21:38 7 units ACHS ANANTH Administration Insulin Glargine 12 units 04/08/23 21:39 04/09/23 21:16 Lantus Per Unit Charge SQ 05/08/23 21:38 12 units HS ANANTH Administration Levothyroxine Sodium 100 mcg 04/09/23 06:30 04/10/23 05:07 Levothyroxine Sodium 100 Mcg Tablet PO 05/09/23 06:29 100 mcg [id number] ANANTH Administration Losartan Potassium 100 mg 04/09/23 09:00 04/10/23 08:21 Losartan Potassium 50 Mg Tab PO 05/09/23 08:59 100 mg QAM ANANTH Administration Nifedipine 60 mg 04/08/23 21:39 04/09/23 20:58 Nifedipine Extended Rel 30 Mg Tabcr PO 05/08/23 21:38 60 mg HS ANANTH Administration Pantoprazole Sodium 40 mg 04/08/23 21:39 04/09/23 20:58 Pantoprazole 40 Mg Tab PO 05/08/23 21:38 40 mg HS ANANTH Administration Spironolactone 50 mg 04/10/23 09:00 04/10/23 08:21 Spironolactone 25 Mg Tab PO 05/10/23 08:59 50 mg QAM ANANTH Administration Past Medical History Medical History (Updated 04/09/23 @ 09:49 by Marzena Pastor PA-C) PAD (peripheral artery disease) Wound infection left foot wound - nonhealing and currently wearing a wound vac (03/2023) Sepsis treated inpatient 02/2023 [facility] Dehiscence of amputation stump of left lower extremity reason for upcoming procedure History of COVID-19 12/20/22 [facility] - no symptoms tested positive 02/15/23 at [facility], was told it was related to testing positive within 90 days back in December 2022 Diabetic foot ulcer Left heel with debridement in the past Constipation TMJ derangement no current issues Cerebral aneurysm "very small"/under suveillance S/P angiogram of extremity left leg Conductive hearing loss of right ear Hypothyroidism Vertigo hx Diabetes IDDM Below-knee amputation of right lower extremity Osteoporosis Scleroderma CREST syndrome follows with PCP Chronic GERD Benign essential hypertension Raynauds syndrome Hx of renal cell cancer R renal (2012) s/p right nephrectomy, no chemo/xrt Anemia Chronic History of MRSA infection 04/2017 (right foot - has since been amputated) > "no active infection" Carotid artery stenosis s/p Left CEA (2002), right CEA (1995) Vascular monitoring per recent visit 03/2023 Renal artery stenosis Right renal stent attempted 2010, s/p right nephrectomy 2012 Diverticular disease GERD (gastroesophageal reflux disease) Chronic kidney disease Stage III Deep vein thrombosis RLE DVT dx 2017; "chronic" PCP/vascular monitoring Hyperlipidemia Hypertension Asthma Past Family History Family History Father Family hx of colon cancer Family history of diabetes mellitus Mother Lung cancer Stroke Unknown Rheumatoid arthritis Other No family history of adverse response to anesthesia No family history of bleeding disorder Past Surgical History Surgical History Status post amputation of left foot through metatarsal bone Status post below knee amputation of right lower extremity History of transmetatarsal amputation of left foot History of esophagogastroduodenoscopy (EGD) S/P amputation right Below the knee amputation History of oophorectomy B/L OVARIES History of carpal tunnel surgery RIGHT HAND, TRIGGER RIGHT FINGER History of left breast biopsy 1997 (benign) H/O sinus surgery History of angioplasty MULTIPLE OF LE'S WITH STENTS TO LOWER EXTREMITIES PLACED History of procedure for peripheral vascular disease LEFT POPLITEAL S/P PERONEAL ARTERY BYPASS 2012; RLE ANGIO WITH INTERVENTION 06/2017 H/O carotid endarterectomy LEFT (2002), RIGHT (1995) History of atherectomy LEFT (02/2017) History of amputation of lesser toe of right foot MULTIPLE TOE AMPUTATIONS/I&D (ALL RT TOES; all the left toes have been amputated) History of cardiac cath 2011= NO [place] Nausea and vomiting after administration of anesthetic agent Hx of lumpectomy LEFT BREAST (BENIGN) History of hysterectomy MERYL W/ BSO History of nephrectomy RIGHT (2012) renal cell carcinoma History of appendectomy History of cholecystectomy History of colonoscopy History of endoscopic sinus surgery History of cataract surgery RT/LEFT History of tonsillectomy Social History Smoking Status: Never smoker Do You Dip or Chew Tobacco: No Hx Alcohol Use: No Hx Substance Use: No substance use type: does not use Physical Exam Vital Signs Last Vital Signs Temp 36.7 C 04/10/23 07:51 Pulse 62 04/10/23 07:51 Resp 18 04/10/23 07:51 BP 116/51 L 04/10/23 07:51 Pulse Ox 95 04/10/23 07:51 O2 Del Method Room Air 04/10/23 07:51 Testing Laboratory Results 04/10/23 07:01 04/10/23 07:01 PT 11.8 Seconds (9.0-12.0) 04/08/23 12:37 INR 1.1 (0.9-1.1) 04/08/23 12:37 APTT 34.4 Seconds (21.0-31.0) H 04/08/23 12:37 04/08/23 12:40 Aerobic Blood Culture - Preliminary Blood No growth in Aerobic bottle after 24 hours. Anaerobic Blood Culture - Preliminary No growth in Anaerobic bottle after 24 hours. 04/08/23 12:37 Aerobic Blood Culture - Preliminary Blood No growth in Aerobic bottle after 24 hours. Anaerobic Blood Culture - Preliminary No growth in Anaerobic bottle after 24 hours. 04/10/23 07:57 POC Glucose 151 H Electrocardiogram Date: 03/27/23 Findings: + NSR @ Echocardiogram Date: 12/21/22 EF: 65-70 Other Findings: + LVH Valvular Disease: + no significant valvular disease
--- NOTE | 2023-04-10 11:14 | Pharmacy Report ---
Pharmacy Glycemic Short Note 2 - Date of Service April 10, 2023 - Glycemic Short BSG Results (Last 24 hours): 04/09/23 04/09/23 04/09/23 11:42 17:41 20:40 Glucose POC Glucose 161 H 235 H 245 H 04/10/23 04/10/23 07:01 07:57 Glucose 127 H POC Glucose 151 H OUTPATIENT ANTIDIABETIC REGIMEN: * Levemir 12 units SQ HS * Humalog ACHS HbA1c: 7.7% on 04/01/23 ASSESSMENT: 04/10: * Patient received total 25 units of insulin yesterday; 12 units basal and 13 units bolus. * BSGs yesterday were [phone] mg/dl. * Since post prandial BSGs were high, Novolog CF and CR tightened today. * Plan for L leg below knee amputation tomorrow, and NPO after midnight. * Will loosen Novolog correction in AM but continued with basal insulin the same for tonight. 04/09: * 77 y/o F admitted for foot osteomyelitis currently getting IV antibiotics. Patient with history of diabetes managed on basal and bolus insulins at home. * Home basal dose was ordered last night. Fasting BSG today was 129 mg/dl. Continued the same for HS. * Novolog parameters ordered based on stress of 2. Pre-lunch BSG was 161 mg/dl. Continued the same. PLAN FOR INPATIENT GLYCEMIC CONTROL: * Basal insulin * Lantus 12 units SQ HS * Bolus insulin * NovoLog per scale ACHS or Q6hrs while NPO * Goal Range: Low 110 mg/dL - High 140 mg/dL * Correction Factor: 35 mg/dL/unit * Nutritional / Prandial insulin per carb ratio of 1 unit per 10 grams CHO consumed
--- NOTE | 2023-04-10 19:47 | Hospitalist Progress Note ---
Date of Service April 10, 2023 Assessment & Plan (1) Osteomyelitis of left foot: Plan: "Type 1 diabetes with diabetic peripheral angiopathy with osteomyelitis and gangrene" Positive bone biopsy on 03/28 revealed left foot osteomyelitis following left transmetatarsal amputation Patient was previously on Amoxicillin and Bactrim outpatient left foot heel ulcer present on admission stage 3 Zosyn 4.5g IV q8h Acetaminophen as needed for pain Appreciate podiatry/vascular surgery consults: plan for Below knee amputation on . (2) Status post amputation of left foot through metatarsal bone: Plan: On 01/09/[address] Natalio Balderas, podiatry Appreciate podiatry consult Consulted Dr. Victoria for LLE BKA previous Right BKA 09/01/[address] victoria (3) Type 1 diabetes: Plan: Last A1c 7.7% on 04/01/2023 SSI; continue Lantus 12u HS Continue Novolog BSG ACHS (4) Chronic kidney disease: Plan: Avoid nephrotoxic agents Renal dosing for antibiotics Hold furosemide and spironolactone for 1 day, then restart on 04/10 Plan DNR/DNI VTE PPx: Heparin 5000u SQ q12h Admission and Anticipated Discharge Date Admission Date: April 09, 2023 Results & Data Results & Data Vital Signs (Past 12 Hours) Vital Signs Temp Pulse Pulse Resp BP BP Pulse Ox 04/10/23 19:16 99.0 F 69 18 137/57 L 94 04/10/23 18:15 98.6 F 69 130/64 95 04/10/23 17:45 98.6 F 70 16 137/64 04/10/23 17:28 99.1 F 69 18 134/58 L 92 04/10/23 17:11 98.2 F 69 18 116/59 L 96 04/10/23 16:55 100.0 F H 04/10/23 14:28 99.0 F 70 16 157/65 H 98 04/10/23 07:51 98.1 F 62 18 116/51 L 95 O2 Del Method 04/10/23 19:16 Room Air 04/10/23 18:15 04/10/23 17:45 04/10/23 17:28 04/10/23 17:11 04/10/23 16:55 04/10/23 14:28 Room Air 04/10/23 07:51 Room Air PG Care Time/CCT Total # of Minutes Spent Total Time Spent with Patient: Total time spent is greater than 50% in coordination of care (as documented) at patient's floor/unit and/or counseling patient: Coding Diagnoses Osteomyelitis of left foot M86.9 Status post amputation of left foot through metatarsal bone Z89.432 Type 1 diabetes E10.9 Chronic kidney disease N18.9
[2023-04-10] MEDS: NIFEdipine EXTENDED REL 30 MG TABCR PO SCH (21:43)
[2023-04-10] MEDS: PANTOprazole 40 MG TAB PO SCH (21:43)
[2023-04-10] MEDS: LANTUS PER UNIT CHARGE SQ SCH (21:50)
--- NOTE | 2023-04-10 22:34 | Hospitalist Progress Note ---
Date of Service April 10, 2023 Assessment & Plan (1) Osteomyelitis of left foot: Plan: "Type 1 diabetes with diabetic peripheral angiopathy with osteomyelitis and gangrene" Positive bone biopsy on 03/28 revealed left foot osteomyelitis following left transmetatarsal amputation Patient was previously on Amoxicillin and Bactrim outpatient left foot heel ulcer present on admission stage 3 Zosyn 4.5g IV q8h Acetaminophen as needed for pain Appreciate podiatry/vascular surgery consults: plan for Below knee amputation on . Transfused 2 PRBC on 04/10 prior to procedure (2) Status post amputation of left foot through metatarsal bone: Plan: On 01/09/[address] Natalio Balderas, podiatry Appreciate podiatry consult Consulted Dr. Victoria for LLE BKA previous Right BKA 09/01/[address] victoria (3) Type 1 diabetes: Plan: Last A1c 7.7% on 04/01/2023 SSI; continue Lantus 12u HS Continue Novolog BSG ACHS (4) Chronic kidney disease: Plan: Avoid nephrotoxic agents Renal dosing for antibiotics Hold furosemide and spironolactone for 1 day, then restart on 04/10 Plan DNR/DNI VTE PPx: Heparin 5000u SQ q12h Admission and Anticipated Discharge Date Admission Date: April 09, 2023 Subjective Patient reports no new complaints. Review of Systems Review of Systems: All systems reviewed & are unremarkable except as noted in HPI & below Physical Exam Physical Exam: General: no acute distress; HEENT: normocephalic, atraumatic; Neck: supple; CV: RRR Lungs:CTA B/L ABD: Soft, NTP; LLE: transmetatarsal amputation: wrapped in a dry dressing Neuro: A&Ox3 Results & Data Results & Data Vital Signs (Past 12 Hours) Vital Signs Temp Pulse Pulse Pulse Resp BP BP 04/10/23 21:25 37.2 C 68 18 191/69 H 04/10/23 20:57 37.1 C 70 18 160/73 H 04/10/23 20:45 37.0 C 71 18 176/65 H 04/10/23 19:16 37.2 C 69 18 137/57 L 04/10/23 18:15 37.0 C 69 130/64 04/10/23 17:45 37.0 C 70 16 137/64 04/10/23 17:28 37.3 C 69 18 134/58 L 04/10/23 17:11 36.8 C 69 18 116/59 L 04/10/23 16:55 37.8 C H 04/10/23 14:28 37.2 C 70 16 157/65 H Pulse Ox O2 Del Method 04/10/23 21:25 96 04/10/23 20:57 99 Room Air 04/10/23 20:45 97 Room Air 04/10/23 19:16 94 Room Air 04/10/23 18:15 95 04/10/23 17:45 04/10/23 17:28 92 04/10/23 17:11 96 04/10/23 16:55 04/10/23 14:28 98 Room Air PG Care Time/CCT Total # of Minutes Spent Total Time Spent with Patient: Total time spent is greater than 50% in coordination of care (as documented) at patient's floor/unit and/or counseling patient: Coding Level of Care Code 88388 SUB INP/OBS CARE 2/35MIN Diagnoses Osteomyelitis of left foot M86.9 Status post amputation of left foot through metatarsal bone Z89.432 Type 1 diabetes E10.9 Chronic kidney disease N18.9
[2023-04-11] MEDS ORDERED: DAPTOmycin 225 MG in SYRINGE 0 ML IV SCH
[2023-04-11] MEDS: PIPERACILLIN/TAZOBACTAM 4.5 GM in DEXTROSE 5% MINI-B 100 ML IV SCH ×3 (05:32→23:00)
[2023-04-11] MEDS: ACETAMINOPHEN 325 MG TAB PO PRN (05:32)
[2023-04-11] MEDS: LEVOTHYROXINE SODIUM 100 MCG TABLET PO SCH (05:32)
--- NOTE | 2023-04-11 07:42 | History & Physical Bridge Note ---
Date of Service April 11, 2023 History & Physical Bridge Note Patient for a left below the knee amputation today. I have discussed the risks options and benefits of the procedure with the patient. The patient understands the risks options and benefits and agrees to the procedure. I have examined the patient, reviewed the History & Physical and in the interval since the performance of the History & Physical I have noted the following changes of clinical significance: no changes noted
[2023-04-11] MEDS: FERROUS GLUCONATE 324 MG TAB PO SCH (08:02)
[2023-04-11] MEDS: carvediloL 25 MG TAB PO SCH ×2 (08:03→20:08)
[2023-04-11] MEDS: LOSARTAN POTASSIUM 50 MG TAB PO SCH (08:03)
[2023-04-11] MEDS: DOCUSATE SODIUM 100 MG CAP PO SCH ×2 (08:04→20:08)
[2023-04-11] MEDS: INSULIN ASPART PER UNIT CHARGE SC SCH ×4 (08:06→21:54)
[2023-04-11] MEDS: SPIRONOLACTONE 25 MG TAB PO SCH (08:10)
[2023-04-11] MEDS: FUROSEMIDE 20 MG TAB PO SCH (08:10)
[2023-04-11 08:45] LABS: Hematocrit (blood only) 34.1 % (37.0-47.0); Hemoglobin 11.4 g/dl (12.0-16.0)
[2023-04-11 08:53] LABS: BUN Creatinine Ratio 22.1 (10-20); Calcium 8.8 mg/dl (8.6-10.3); Creatinine Clr Calc Pharmacy 27.4 ml/min; Est GFR (African American) 39.1 ml/min; Est GFR (Non-African American) 33.8 ml/min; Potassium 4.1 mmol/L (3.5-5.1)
--- NOTE | 2023-04-11 09:33 | Hospitalist Progress Note ---
Date of Service April 11, 2023 Assessment & Plan (1) Osteomyelitis of left foot: Plan: "Type 1 diabetes with diabetic peripheral angiopathy with possible gangrene" Positive bone biopsy on 03/28 revealed left foot osteomyelitis following left transmetatarsal amputation Patient was previously on Amoxicillin and Bactrim outpatient Afebrile on arrival; leukocytosis at 12.88 with a neutrophil predominance Blood cultures pending Continue Zosyn 4.5g IV q8h Acetaminophen as needed for pain Appreciate podiatry/vascular surgery consults: plan for Beloww knee amputation on 04/10/23 (2) Status post amputation of left foot through metatarsal bone: Plan: On 01/09/[address] Natalio Balderas, podiatry Appreciate podiatry consult Consulted Dr. Umana for LLE BKA (3) Type 1 diabetes: Plan: Last A1c 7.7% on 04/01/2023 SSI; continue Lantus 12u HS Continue Novolog BSG ACHS Target BSG range 110-160mg/dL, CF 70, carb ratio 25 T1DM diet as tolerated Adjust regimen as needed (4) Chronic kidney disease: Plan: Avoid nephrotoxic agents Renal dosing for antibiotics Hold furosemide and spironolactone for 1 day, then restart post operatively (5) Anemia: Plan: Pt with anemia s/p 2 u prbc with exaggerated response. previous iron b12 and folate are normal, maybe anemia or ch disease Plan Disposition: Admit to [facility] DNR/DNI T1DM diet VTE PPx: Heparin 5000u SQ q12h Admission and Anticipated Discharge Date Admission Date: April 09, 2023 Subjective Pt was seen post operatively and was having pain at the operative site not phantom pain but pain to the distal stump and proximal parenteral pain medication ordered nursing notes is hypertensive but likely due to pain Physical Exam Physical Exam: pt is awake and alert, pain to right proximal leg and stump dressing in place, thigh is warm no chords, cardiac is regular lungs are clear Results & Data Results & Data Vital Signs (Past 12 Hours) Vital Signs Temp Pulse Pulse Resp BP BP Pulse Ox 04/11/23 07:30 98.2 F 65 18 117/60 94 04/11/23 00:35 99.9 F H 67 16 179/66 H 95 04/10/23 23:35 99.9 F H 71 16 183/67 H 94 04/10/23 22:35 99.5 F 68 16 181/78 H 95 04/10/23 22:05 99.9 F H 75 18 154/69 H 95 04/10/23 21:50 99.5 F 70 18 205/73 H 96 O2 Del Method 04/11/23 07:30 Room Air 04/11/23 00:35 04/10/23 23:35 04/10/23 22:35 04/10/23 22:05 04/10/23 21:50 PG Care Time/CCT Total # of Minutes Spent Total Time Spent with Patient: Total time spent is greater than 50% in coordination of care (as documented) at patient's floor/unit and/or counseling patient: Coding Level of Care Code 76039 SUB INP/OBS CARE 2/35MIN Diagnoses Osteomyelitis of left foot M86.9 Status post amputation of left foot through metatarsal bone Z89.432 Type 1 diabetes E10.9 Chronic kidney disease N18.9 Anemia D64.9
[2023-04-11] MEDS: SODIUM CHLORIDE 0.9% 500 ML IV SCH (12:43)
[2023-04-11] MEDS: SODIUM CHLORIDE 0.9% 1,000 ML IV SCH (12:44)
[2023-04-11] MEDS ORDERED: fentaNYL citrate PF 100 MCG/2 ML VIAL ONE (12:54)
[2023-04-11] MEDS ORDERED: MIDAZOLAM HCL 1 MG/ML 2ML VIAL ONE (12:54)
[2023-04-11] MEDS ORDERED: PROPOFOL IV EMULSION 10 MG/ML 20 ML VIAL IV ONE (12:56)
[2023-04-11] MEDS ORDERED: ROCURONIUM BROMIDE 10 MG/ML 5 ML VIAL IV ONE (12:56)
[2023-04-11] MEDS ORDERED: ARTIFICIAL TEARS OP OINT 3.5 GM TUBE ONE (13:02)
[2023-04-11] MEDS ORDERED: ePHEDrine sulfate 50 MG/ML AMP IV PRN (13:11)
[2023-04-11] MEDS ORDERED: ATROPINE SULFATE 0.1 MG/ML 10ML SYR IV PRN (13:11)
[2023-04-11] MEDS ORDERED: ONDANSETRON INJ 2 MG/ML 2 ML VIAL IV PRN (13:11)
[2023-04-11] MEDS ORDERED: KETAMINE HCL 10MG/ML SYR ONE (13:17)
[2023-04-11] MEDS ORDERED: SUGAMMADEX SODIUM 200 MG/2 ML VIAL IV ONE (14:20)
--- NOTE | 2023-04-11 14:42 | Operative Report ---
Post Operative Report Pre & Post Diagnosis Operation Date: 04/11/23 13:00 Pre-Op Diagnosis: Left Leg: Peipheral Artery Disease with nonhealing/necrotic Left Lower Extremity Transmetatarsal Amputation Wound Post-Op Diagnosis: Left Leg: Peipheral Artery Disease with nonhealing/necrotic Left Lower Extremity Transmetatarsal Amputation Wound I identified the patient and participated in the time-out.: Yes Procedure Operation Date: 04/11/23 13:00 Actual Procedures p Left Leg Below Knee Amputation(Left) - Wesley Umnaa MD Surgeon Wesley Umana MD [employer] none Estimated Blood Loss 100 Findings Consistent with Post-Op Diagnosis Specimens left lower leg Anesthesia Type General Complications none Disposition Accompanied Patient To Recovery: No Disposition: Recovery Room Indications This is a 77-year-old female who has ongoing ulceration of the left foot. She has had a TMA which is nonhealing and necrotic. She has had Interventions of the left lower extremity which included a femoral to distal bypass which is still functional.The wound itself is nonhealing and necrotic. She requires a higher amputation. A Below the knee amputation was recommended. I have discussed the risks options and benefits of the procedure with the patient. The patient understands the risks options and benefits and agrees to the procedure. Description of Procedure The patient was taken to the operating room and placed in the supine position. After general anesthesia was accomplished the left lower extremity was prepped and draped in a sterile manner. A timeout was performed and the patient was identified.A semicircular incision was made anteriorly 4 fingerbreadths below the tibial tuberosity.The muscles of the anterior compartment were divided. The periosteum was then elevated on the fibula and the fibula was transected proximally 2 cm above the skin incision level.Next the tibia was isolated. A Gigli saw was then used to transect the tibia and beveled it on the anterior surface.Using a amputation knife the posterior flap was then formed using the gastroc and soleus for the padding for the stump.Once the leg was removed after hemostasis was obtained using suture vectors and free ties. Once adequate hemostasis was noted the anterior posterior fascia was were approximated with interrupted 3-0 Vicryl sutures.Once this was completed and talita were used for the skin edges. Sterile dressings were applied to the wound. The patient left the operation room in satisfactory condition and tolerated the procedure well. All needle and sponge counts were correct at the end of the procedure. I attest to the content of the Intraoperative Record and any orders documented therein. Any exceptions are noted below.
[2023-04-11] MEDS: fentaNYL citrate PF 100 MCG/2 ML VIAL IV PRN ×4 (14:45→15:00)
[2023-04-11] MEDS ORDERED: HYDROmorphone INJ 0.5 MG/0.5 ML SYR IV PRN ×2 (15:04→15:47)
[2023-04-11] MEDS ORDERED: HYDROmorphone INJ 2 MG/ML SYR/VIAL ONE (15:07)
[2023-04-11] MEDS ORDERED: HYDROmorphone INJ 1 MG/ML SYRINGE ONE (15:50)
--- NOTE | 2023-04-11 16:19 | Anesthesiology Progress Note ---
Date of Service April 11, 2023 Anesthesia Post Procedure Vital Signs Vital Signs: Temp Pulse Pulse Pulse Pulse Resp BP 04/11/23 16:10 36.6 C 62 16 04/11/23 16:00 63 16 04/11/23 15:50 62 16 04/11/23 15:40 61 16 04/11/23 15:30 63 14 04/11/23 15:20 62 14 04/11/23 15:10 62 14 04/11/23 15:00 60 14 04/11/23 14:50 60 16 04/11/23 14:45 60 18 04/11/23 14:37 37.0 C 62 20 04/11/23 12:27 36.6 C 62 18 04/11/23 11:01 36.6 C 59 L 18 04/11/23 07:30 36.8 C 65 18 04/11/23 00:35 37.7 C H 67 16 179/66 H 04/10/23 23:35 37.7 C H 71 16 183/67 H 04/10/23 22:35 37.5 C 68 16 181/78 H 04/10/23 22:05 37.7 C H 75 18 154/69 H 04/10/23 21:50 37.5 C 70 18 205/73 H 04/10/23 21:25 37.2 C 68 18 191/69 H 04/10/23 20:57 37.1 C 70 18 04/10/23 20:45 37.0 C 71 18 04/10/23 19:16 37.2 C 69 18 04/10/23 18:15 37.0 C 69 130/64 04/10/23 17:45 37.0 C 70 16 137/64 04/10/23 17:28 37.3 C 69 18 134/58 L 04/10/23 17:11 36.8 C 69 18 116/59 L 04/10/23 16:55 37.8 C H BP Pulse Ox O2 Del Method O2 Flow Rate 04/11/23 16:10 173/67 H 98 Nasal Cannula 2 04/11/23 16:00 168/78 H 99 Nasal Cannula 2 04/11/23 15:50 175/68 H 99 Nasal Cannula 2 04/11/23 15:40 176/71 H 98 Nasal Cannula 2 04/11/23 15:30 176/74 H 99 Nasal Cannula 2 04/11/23 15:20 173/70 H 98 Oxymask 4 04/11/23 15:10 178/77 H 100 Oxymask 4 04/11/23 15:00 175/73 H 100 Oxymask 4 04/11/23 14:50 171/76 H 100 Oxymask 4 04/11/23 14:45 169/73 H 100 Oxymask 4 04/11/23 14:37 175/73 H 100 Oxymask 4 04/11/23 12:27 139/68 96 Room Air 04/11/23 11:01 121/64 96 Room Air 04/11/23 07:30 117/60 94 Room Air 04/11/23 00:35 95 04/10/23 23:35 94 04/10/23 22:35 95 04/10/23 22:05 95 04/10/23 21:50 96 04/10/23 21:25 96 04/10/23 20:57 160/73 H 99 Room Air 04/10/23 20:45 176/65 H 97 Room Air 04/10/23 19:16 137/57 L 94 Room Air 04/10/23 18:15 95 04/10/23 17:45 04/10/23 17:28 92 04/10/23 17:11 96 04/10/23 16:55 Pain Intensity Left Foot: Pain Intensity: 4 Left Knee: Pain Intensity: 10 Transfer of Care Handoff Completed per policy Notes Mental Status: alert / awake / arousable and participated in evaluation Patient Amnestic to Procedure: Yes Nausea / Vomiting: adequately controlled Pain: improving with treatment and see Notes below Airway Patency, RR, SpO2: stable & adequate BP & HR: stable & adequate Hydration State: stable & adequate Anesthetic Complications: no major complications apparent and Pt Satisfied with anesthetic care Notes: Patient with significant pain medication requirement. Has been treated aggressively with dilaudid. Patient somnolent at times so hesitate to continue with high dose dilaudid in recovery.
[2023-04-11] MEDS ORDERED: oxyCODONE/ACETAMINOPHEN 5mg/325mg TAB PO PRN (16:55)
[2023-04-11] MEDS: hydrALAZINE HCL 20 MG/ML VIAL IV PRN (17:12)
[2023-04-11] MEDS: HYDROmorphone INJ 0.5 MG/0.5 ML SYR IV PRN ×2 (17:12→20:07)
[2023-04-11] MEDS: MoRPHine SULFATE 4 MG/ML 1 ML CARP\\VIAL IV PRN (18:54)
[2023-04-11] MEDS ORDERED: KETOROLAC 30 MG/ML VIAL IV ONE (19:07)
[2023-04-11] MEDS ORDERED: ACETAMINOPHEN 1,000 MG/100 ML VIAL IV STA (19:08)
[2023-04-11] MEDS: PANTOprazole 40 MG TAB PO SCH (20:08)
[2023-04-11] MEDS: NIFEdipine EXTENDED REL 30 MG TABCR PO SCH (20:08)
[2023-04-11] MEDS: ACETAMINOPHEN 500 MG TAB PO SCH (20:08)
[2023-04-11] MEDS: oxyCODONE HCL IR 5 MG TAB (IMMEDIATE RELEASE) PO PRN (21:52)
[2023-04-11] MEDS: LANTUS PER UNIT CHARGE SQ SCH (21:53)
[2023-04-11] MEDS: HEPARIN SOD 5,000 UNIT/0.5 ML VIAL SQ SCH (22:13)
[2023-04-11] MEDS ORDERED: HYDROmorphone INJ 1 MG/ML SYRINGE IV STA (22:48)
[2023-04-12] MEDS: HYDROmorphone INJ 0.5 MG/0.5 ML SYR IV PRN ×6 (01:19→22:30)
[2023-04-12] MEDS: hydrALAZINE HCL 20 MG/ML VIAL IV PRN (03:36)
[2023-04-12] MEDS: LEVOTHYROXINE SODIUM 100 MCG TABLET PO SCH (05:10)
[2023-04-12] MEDS: POLYETHYLENE (MIRALAX) 17 GM PACK PO PRN (05:18)
[2023-04-12] MEDS: PIPERACILLIN/TAZOBACTAM 4.5 GM in DEXTROSE 5% MINI-B 100 ML IV SCH ×3 (07:43→23:03)
[2023-04-12] MEDS: ACETAMINOPHEN 500 MG TAB PO SCH ×3 (08:23→21:04)
[2023-04-12] MEDS: SPIRONOLACTONE 25 MG TAB PO SCH (08:23)
[2023-04-12] MEDS: carvediloL 25 MG TAB PO SCH ×2 (08:23→21:06)
[2023-04-12] MEDS: FERROUS GLUCONATE 324 MG TAB PO SCH (08:24)
[2023-04-12] MEDS: FUROSEMIDE 20 MG TAB PO SCH (08:24)
[2023-04-12] MEDS: DOCUSATE SODIUM 100 MG CAP PO SCH ×2 (08:24→21:05)
[2023-04-12] MEDS: LOSARTAN POTASSIUM 50 MG TAB PO SCH (08:24)
[2023-04-12] MEDS: HEPARIN SOD 5,000 UNIT/0.5 ML VIAL SQ SCH ×2 (08:25→21:05)
[2023-04-12] MEDS: INSULIN ASPART PER UNIT CHARGE SC SCH ×4 (08:33→21:03)
[2023-04-12 10:19] LABS: Hematocrit (blood only) 34.4 % (37.0-47.0); Hemoglobin 11.5 g/dl (12.0-16.0); Mean Corpuscular Hemoglobin 28.5 pg (25.0-34.0); Mean Corpuscular Hgb Conc 33.4 g/dL (32.0-36.0); Mean Corpuscular Volume 85.4 fL (80.0-100.0); Mean Platelet Volume 10.3 fL (9.4-12.4); Platelet Count 303 K/uL (130-400); RDW Coefficient of Variation 16.1 % (11.5-14.5); RDW Standard Deviation 50.9 fL (36.4-46.3); Red Blood Count 4.03 M/uL (4.20-5.40); White Blood Count 11.29 K/ul (4.8-10.8)
--- NOTE | 2023-04-12 10:26 | Surgery Progress Note ---
Date of Service April 12, 2023 Assessment & Plan (1) Status post below-knee amputation of left lower extremity: Plan: Pt is POD #1 after LLE BKA, doing well post op. Pain is currently controlled. Wound is well approximated, wiht minimal bleeding. OK for d/c to rehab when arrangements made and cleared per medicine. WIll see in office in 2 weeks for staple removal. Admission and Anticipated Discharge Date Admission Date: April 09, 2023 Subjective 77 yo POD #1 after LLE BKA, seen in f/u today. Pt states she did have severe pain, but it is now controlled. Mild nausea earlier, but none now. Denies chest pain, SOB, abd pain, other complaints. Review of Systems Review of Systems: All systems reviewed & are unremarkable except as noted in HPI & below Physical Exam Constitutional: WD/WN, vitals as above + thin and cooperative; not in distress Musculoskeletal: Extremities: + amputation noted (RLE BKA, LLE BKA) Skin: no rashes, warm and dry + incision (LLE BKA mild bloody drainage on dressing. intact with talita.mildly tende) Psychiatric: A+Ox3, euthymic affect Results & Data Vital Signs (Past 12 Hours) Vital Signs Temp Pulse Pulse Resp BP Pulse Ox O2 Del Method 04/12/23 07:35 36.4 C L 63 16 154/67 H 94 Room Air 04/12/23 06:24 167/67 H 04/12/23 03:40 36.4 C L 63 18 193/72 H 97 Room Air 04/12/23 03:35 62 193/72 H 04/11/23 22:54 36.8 C 68 16 179/74 H 98 Nasal Cannula O2 Flow Rate 04/12/23 07:35 04/12/23 06:24 04/12/23 03:40 04/12/23 03:35 04/11/23 22:54 2
--- NOTE | 2023-04-12 10:27 | Pharmacy Report ---
Pharmacy Glycemic Short Note 2 - Date of Service April 12, 2023 - Glycemic Short BSG Results (Last 24 hours): 04/11/23 04/11/23 04/11/23 11:39 12:39 14:39 POC Glucose 91 82 86 04/11/23 04/11/23 04/12/23 16:49 20:26 07:38 POC Glucose 116 H 139 H 124 H OUTPATIENT ANTIDIABETIC REGIMEN: * Levemir 12 units SQ HS * Humalog ACHS HbA1c: 7.7% on 04/01/23 ASSESSMENT: 04/12: * BSGs well-controlled yesterday, ranging 91-141 mg/dL * POD #1 s/p left leg BKA * No changes anticipated to glycemic regimen today 04/10: * Patient received total 25 units of insulin yesterday; 12 units basal and 13 units bolus. * BSGs yesterday were [phone] mg/dl. * Since post prandial BSGs were high, Novolog CF and CR tightened today. * Plan for L leg below knee amputation tomorrow, and NPO after midnight. * Will loosen Novolog correction in AM but continued with basal insulin the same for tonight. 04/09: * 77 y/o F admitted for foot osteomyelitis currently getting IV antibiotics. Patient with history of diabetes managed on basal and bolus insulins at home. * Home basal dose was ordered last night. Fasting BSG today was 129 mg/dl. Continued the same for HS. * Novolog parameters ordered based on stress of 2. Pre-lunch BSG was 161 mg/dl. Continued the same. PLAN FOR INPATIENT GLYCEMIC CONTROL: * Basal insulin * Lantus 12 units SQ HS * Bolus insulin * NovoLog per scale ACHS or Q6hrs while NPO * Goal Range: Low 110 mg/dL - High 140 mg/dL * Correction Factor: 35 mg/dL/unit * Nutritional / Prandial insulin per carb ratio of 1 unit per 9 grams CHO consumed
[2023-04-12 10:33] LABS: BUN Creatinine Ratio 23.5 (10-20); Calcium 8.6 mg/dl (8.6-10.3); Creatinine Clr Calc Pharmacy 30.9 ml/min; Est GFR (African American) 45.3 ml/min; Est GFR (Non-African American) 39.1 ml/min; Potassium 3.7 mmol/L (3.5-5.1)
[2023-04-12] MEDS ORDERED: ONDANSETRON INJ 2 MG/ML 2 ML VIAL IV STA (10:42)
[2023-04-12] MEDS: oxyCODONE HCL IR 5 MG TAB (IMMEDIATE RELEASE) PO PRN ×2 (11:17→21:53)
[2023-04-12] MEDS: SODIUM CHLORIDE 0.9% 500 ML IV SCH (12:11)
--- NOTE | 2023-04-12 16:14 | Hospitalist Progress Note ---
Date of Service April 12, 2023 Assessment & Plan (1) Osteomyelitis of left foot: Plan: "Type 1 diabetes with diabetic peripheral angiopathy with possible gangrene" Positive bone biopsy on 03/28 revealed left foot osteomyelitis following left transmetatarsal amputation Patient was previously on Amoxicillin and Bactrim outpatient Blood cultures negative Continue Zosyn 4.5g IV q8h Acetaminophen as needed for pain Below knee amputation on 04/10/23 (2) Status post amputation of left foot through metatarsal bone: Plan: On 01/09/[address] Natalio Balderas, podiatry Appreciate podiatry consult Consulted Dr. Umana for LLE BKA (3) Type 1 diabetes: Plan: Last A1c 7.7% on 04/01/2023 SSI; continue Lantus 12u HS Continue Novolog BSG ACHS Target BSG range 110-160mg/dL, CF 70, carb ratio 25 T1DM diet as tolerated Adjust regimen as needed (4) Chronic kidney disease: Plan: Avoid nephrotoxic agents Renal dosing for antibiotics furosemide and spironolactone restart post operatively (5) Anemia: Plan: Pt with anemia s/p 2 u prbc with exaggerated response. previous iron b12 and folate are normal, maybe anemia or ch disease Plan Disposition: transfer [facility] next week DNR/DNI T1DM diet VTE PPx: Heparin 5000u SQ q12h Admission and Anticipated Discharge Date Admission Date: April 09, 2023 Subjective pt was in much pain last pm, improved today otherwise has no new issues Physical Exam Physical Exam: pt is with controlled pain cardiac exam is regular lungs are clear Results & Data Results & Data Vital Signs (Past 12 Hours) Vital Signs Temp Pulse Resp BP BP Pulse Ox O2 Del Method 04/12/23 14:31 97.7 F 55 L 16 109/49 L 109/49 L 96 Room Air 04/12/23 10:37 97.7 F 78 16 107/57 L 94 Room Air 04/12/23 07:35 97.5 F L 63 16 154/67 H 94 Room Air 04/12/23 06:24 167/67 H Laboratory Results reviewed cbc reviewed chemistry PG Care Time/CCT Total # of Minutes Spent Total Time Spent with Patient: Total time spent is greater than 50% in coordination of care (as documented) at patient's floor/unit and/or counseling patient: Coding Level of Care Code 97028 SUB INP/OBS CARE MIN Diagnoses Osteomyelitis of left foot M86.9 Status post amputation of left foot through metatarsal bone Z89.432 Type 1 diabetes E10.9 Chronic kidney disease N18.9 Anemia D64.9
[2023-04-12] MEDS: ONDANSETRON INJ 2 MG/ML 2 ML VIAL IV PRN ×2 (16:51→23:02)
[2023-04-12] MEDS: LANTUS PER UNIT CHARGE SQ SCH (21:03)
[2023-04-12] MEDS: NIFEdipine EXTENDED REL 30 MG TABCR PO SCH (21:04)
[2023-04-12] MEDS: PANTOprazole 40 MG TAB PO SCH (21:05)
[2023-04-12] MEDS: MELATONIN 3 MG TAB PO PRN (21:08)
[2023-04-12] MEDS: MoRPHine SULFATE 4 MG/ML 1 ML CARP\\VIAL IV PRN (23:02)
[2023-04-13] MEDS: MoRPHine SULFATE 4 MG/ML 1 ML CARP\\VIAL IV PRN ×3 (00:38→18:22)
[2023-04-13] MEDS: HYDROmorphone INJ 0.5 MG/0.5 ML SYR IV PRN ×5 (01:08→17:23)
[2023-04-13] MEDS ORDERED: HYDROmorphone INJ 0.5 MG/0.5 ML SYR IV STA (02:09)
[2023-04-13] MEDS: LEVOTHYROXINE SODIUM 100 MCG TABLET PO SCH (04:24)
--- OUTSIDE RECORDS SUMMARY | 2023-04-13 06:38 | External Medical Summary | Summary of Care ---
Author Name Unknown Organization [facility] Address [address] [place] [address] Phone [phone] Care Team Providers Care Addiction Nurse Name Role Phone Agustín Jarvis MD Primary Care Provider [phone] Encounter Details Date Type Department Care Team (Late st Contact Info) Description 03/26/2023 Result Scan Unspecified Department <No scans attached> Allergies Active Allergy Reactions Criticality Noted Date Comments Ivp Dye Hives 08/05/2006 Lisinopril Edema Other 06/01/2010 Angioedema documented as of this encounter (statuses as of 03/26/2023) Medications Medication Sig Dispensed Refills Start Date [...] suspected opioid overdose. Seek immediate medical attention. [email or web address]://www.[email or web address]/[email or web address]?v=v26c [email or web address] 1 Each 3 11/11/2022 Active documented as of this encounter (statuses as of 03/26/2023) Active Problems Problem Noted Date Diagnosed Date Osteoporosis 07/17/2022 Hypoglycemia 06/28/2021 Hypothermia 06/28/2021 Diarrhea of presumed infectious origin 2 Type 2 diabetes mellitus wit h hemoglobin A1c goal of less than 7.0% 06/28/2021 ETD (Eustachian tube dysfunction), bilateral 09/2018 At risk for barotrauma due to hyperbaric oxygen therapy 08/04/2018 Right asymmetrical SNHL 08/04/2018 Hypothyroidism 08/05/2006 Dyslipidemia, goal to be determined 08/05/2006 DM type 2, not at goal 08/05/2006 HYPERTENSION NOS 08/05/2006 S/P carotid endarterectomy 08/05/2006 documented as of this encounter (statuses as of 03/26/2023) Social History Tobacco Use Types Packs/Day Years Used Date Smoking Tobacco: Never Smokeless Tobacco: Never Alcohol Use Standard Drinks/Week Comments Never 0 (1 standard drink = 0.6 oz pur e alcohol) Sex and Gender Information Value Date Recorded Sex Assigned at Not on file Gender Identity Not on file Sexual Orientation Not on file Job Start Date Occupation [...] as of this encounter Plan of Treatment Scheduled Procedures Name Priority Associated Diagnoses Date/Ti me COLONOSCOPY FLEXIBLE PROXIMAL DIAGNOSTIC Recall History of colon polyps Health Maintenance Due Date Last Done Comments Pneumococcal Vaccine: 65+ Years (1 - PCV) 1952 Depression Screening 1958 Albumin/Creatinine Ratio 1964 DIABETES-EYE EXAM 1964 Diabetic Foot Exam 1964 Hepatitis C Screening 1964 DTaP,Tdap,and Td Vaccines (1 - Tdap) 1965 VITAMIN D LEVEL ONCE IN A LIFETIME-USE SMARTSET# 26018 1986 DXA Scan 1996 Zoster Vaccines (1 of 2) 1996 Hepatitis B (1 of 3 - Risk 3-dose series) 2006 COLONOSCOPY-EVERY 3 YRS AGES 18-100 08/02/2017 08/02/2014, 08/02/2014, 08/23/2011, Additional history exists TSH 06/28/2022 06/28/2021, 04/0 11/2019, 04/24/2019, Additional history exists COVID-19 Vaccine (2 - 2022- season) 2023 04/13/2022 Influenza Vaccine (FLU shot) (#1) 2023 04/22/2019 HbA1c 09/12/2023 03/13/2023, 06/04, 06/28/2021 GFR 03/13/2024 03/13/2023, 02/02, 02/26/2023, Additional history exists GARDASIL-HPV IMMUNIZATION SERIES Aged Out No longer eligible based on patient's age to complete this topic MENINGOCOCCAL (MENACTRA/MENVEO) Aged Out No longer eligible based on patient's age to complete this topic documented as of this encounter Medical Devices Not on filedocumented as of this encounter Procedures Procedure Name Priority Date/Time Associated Diagnosis Comments PROCEDURE SCANNED RESULT 03/26/2023 documented in this encounter Results * PROCEDURE SCANNED RESULT (03/26/2023) 03/26/2023 No Physician Data Unknown SURGERY documented in this encounter Advance Directives Latest Code Status on File Code Status Date Activated Date Inactivated Comments No Code 06/28/2021 3:36 AM 06/29/2021 8:55 PM This order reflects the patients wishes and were consensually agreed upon. Question Answer Comments Discussion of Advance Directives occurred with: Patient Care Teams Addiction Nurse Relationship Specialty Start Date End Date Agustín Jarvis MD [address] [facility] [place] [id number] PCP - General 03/20/02 documented as of this encounter
--- OUTSIDE RECORDS SUMMARY | 2023-04-13 06:38 | External Medical Summary | Continuity of Care Document ---
Author Name Unknown Organization [place] [address] [facility] Address [address], [place] [address] Care Team Providers Care Hard Tile Setter Name Role Phone Agustín Jarvis Primary Care Physician [phone] En[id number] Date(s): 03/11/23 - 03/11/23 [facility] [address], [address] [place] [address] [phone] Encounter Diagnosis Peripheral artery disease(Discharge Diagnosis) - 03/11/23 S/P femoral-tibial bypass(Discharge Diagnosis) - 03/11/23 Carotid stenosis(Discharge Diagnosis) - 03/11/23 Discharge Disposition: Home or Self Care Attending Physician: MD Umana Eugene J Referring Physician: MD Javris Eric K Allergies, Adverse Reactions, Alerts Substance [...] PO, bid Start Date: 02/28/16 Status: Ordered docusate sodium 100 mg oral capsule Start: 03/11/23 13:05:00 EDT, 1 cap, PO, Daily, PRN: as needed for constipation Start Date: 03/11/23 Status: Ordered enoxaparin 40 mg/0.4 mL injectable solution Start: 03/11/23 13:07:00 EDT, 0.4 mL, subQ, Daily Start Date: 03/11/23 Status: Ordered ferrous gluconate 324 mg (38 mg elemental iron) oral tablet Start: 03/11/23 13:06:00 EDT, 1 tab, PO, Daily Start Date: 03/11/23 Status: Ordered furosemide 20 mg oral tablet Start: 03/11/23 13:06:00 EDT, 1 tab, PO, Daily Start Date: 03/11/23 Status: Ordered HumaLOG Start: 01/29/14 14:18:00, subQ, qid, sliding scale per BS readings up to 50-60 units daily Start Date: 01/29/14 Status: Ordered Levemir Start: 01/29/14 14:19:00 EDT, See Instructions, 12 units subQ qPM Start Date: 01/29/14 Status: Ordered levothyroxine Start: 01/28/19 13:17:00 EDT, 100 mcg =, PO, Daily Start Date: 01/28/19 Status: Ordered losartan 100 mg oral tablet Start: 09/14/15 11:43:00, 1 tab, PO, Daily, Disp# 90, Refills: 3 Start Date: 09/14/15 Status: Ordered magnesium oxide 400 mg (241.3 mg elemental magnesium) oral tablet Start: 03/11/23 13:05:00 EDT, 1 tab, PO, Daily Start Date: 03/11/23 Status: Ordered NIFEdipine (Eqv-Procardia XL) 60 mg [...] Start: 10/23/22 8:47:00 EDT, 1 tab, PO, Daily Start Date: 10/23/22 Status: Ordered traMADol 50 mg oral tablet Start: 12/17/22 15:25:00 EDT, 2 tab, PO, q4h, PRN: as needed for pain Start Date: 12/17/22 Status: Ordered traMADol 50 mg oral tablet Start: 12/17/22 16:03:00 EDT, 1 tab, PO, q4h, Disp# 30 tab, PRN: as needed for pain, Pharmacy: [id number] Start Date: 12/17/22 Status: Ordered Vitamin D3 1000 intl units oral tablet Start: 01/29/14 14:20:00, 1 tab, PO, Daily Start Date: 01/29/14 Status: Ordered Mental Status 03/11/23 Barriers to Learning one year None evide nt, Vision impairment, Other: Mandatory Health Literacy Documentation Yes Health Literacy Communication Barriers N ever Primary Language Georgian Problem List Condition Confirmation Course Effective Dates [...] Effective Dates Health Status Clinical Service Informant S/P femoral-tibial bypass Discharge Diagnosis 03/11/23 Non-Specified Peripheral artery disease Discharge Diagnosis 03/11/23 Non-Specified Carotid stenosis Discharge Diagnosis 03/11/23 Non-Specified Procedures Procedure Date Related Diagnosis Body Site Status LLE Angiogram w/ EDUCATION ANALYST ant tib artery 12/24/22 Completed LLE Angiogram w lithotripsy and EDUCATION ANALYST peroneal 06/25/22 Completed LLE Angiogram w/ EDUCATION ANALYST peroneal artery 04/21/21 Completed LLE angiogram without intervention 03/25/20 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 09/02/19 Completed lle angio w sailboat captain l peroneal a nd stent l common iliac art 07/15/19 Completed Abdominal aortogram w/ EDUCATION ANALYST/s [place] 07/06/19 Completed RLE ADMINISTRATIVE OFFICE ASSISTANT - Endarterectomy of the common femoral artery wi/ bovine patch and fem-ant tib in situ bypass 04/17/19 Compl eted RLE Angiogram without intervention 04/03/19 Completed Revision RLE transmetatarsal amputation 11/11/18 Completed RLE angiogram w/ EDUCATION ANALYST peronea l and popliteal artery 10/10/18 Completed Amputation of left 1st toe a nd metatarsal 02/11/18 Completed RLE angiogram w/ EDUCATION ANALYST peroneal 11/22/17 Completed RLE angiogram w/ EDUCATION ANALYST peronea l, TP trunk and pop 09/16/17 Completed Amputation of Right 3rd toe 07/12/17 Completed RLE Surgical debridement of foot wound, transmetatarsal amp 4th toe, excision 3rd metatartsal and prox phalnx 06/19/17 Completed RLE angiogram w/ EDUCATION ANALYST/stent p opliteal artery, EDUCATION ANALYST peroneal 06/14/17 Completed RLE 5th toe amputation 04/30/17 Co mpleted RLE angiogram with intervention 02/15/17 Completed RLE Mechanical Atherectomy a nd EDUCATION ANALYST of popliteal, thrombolysis/TPA and recheck 02/15/17 Completed Nephrectomy 04/2013 Completed Vascular surgery 02/25/13 Complete d Popliteal artery 2 02/2013 Comple prisca Plantar wart 3 01/2013 Completed Planters Warts Removed From [facility] 2012 Completed Cardiac catheterization [...] to oldest [Reference Range]: 1 Heart Rate 64 bpm (03/11/23 1:14 PM) Blood Pressure 144/56mmHg (03/11/23 1:14 PM) Cuff Pulse Pressure 88 mmHg (03/11/23 1:14 PM) BP Location # 1 Right Arm (03/11/23 1:14 PM) Social History Social History Type Response Smoking Status Former Smoker, quit > 1 yr Sex Female Patient Care team information Care Team Personnel Name: LEONARDO Mcintosh Lauren O Position: Nurse Pract - Orthopaedic Surg Member Role: Lifetime Relationship Address: Address: [address] [place] [address] [place] Name: MD Matheus, Agustín Sánchez Position: Referring DIRECT Member Role: Primary Care Provider Address: Address: [address] [place] [address] [place] Name: EDILIA Pastor, Marzena Position: Physician Social Psychologist Exempt - Vasc Surg Member Role: Lifetime Relationship Address: Address: [address] [place] [address] Name: MD Camilo, David Bryson Position: Physician - Urology Member Role: Lifetime Relationship Address: Address: [address] [place] [address] Care Team Related Persons Name: AXEL BOND Address: home [address] [place], [place] [id number]
--- OUTSIDE RECORDS SUMMARY | 2023-04-13 06:38 | External Medical Summary | Summary of Care ---
Author Name Unknown Organization [facility] Address [address] [place] [address] Phone [phone] Care Team Providers Care Vamp Presser Name Role Phone Agustín Jarvis MD Primary Care Provider [phone] Reason for Visit * Reason Comments EMG Encounter Details Date Type Department Care Team (Late st Contact Info) Description 03/26/2023 11:00 AM EDT NeuroDiagnostic Study Neurophysiology, [facility] [address] [place] [address] Henri Crooks MD [address] [facility] [place] [address] Arrived Allergies Active Allergy Reactions Criticality Noted Date [...] suspected opioid overdose. Seek immediate medical attention. [email or web address]?v=[email or web address] 1 Each 3 11/11/2022 Active documented as [...] as of this encounter Progress Notes * Henri Crooks MD - 03/26/2023 11:23 AM EDT Study shows evidence for a moderate left cts and a superimposed likely diabetic polyneuropathy Aleksandra Crooks MD documented in this encounter Plan of Treatment Scheduled Procedures [...] D LEVEL ONCE IN A LIFETIME-USE SMARTSET# 21409 1986 DXA Scan 1996 Zoster Vaccines (1 of 2) 1996 Hepatitis B (1 of 3 - Risk 3-dose series) 2006 COLONOSCOPY-EVERY 3 YRS AGES 18-100 08/02/2017 08/02/2014, 08/02/2014, 08/23/2011, Additional history exists TSH 06/28/2022 06/28/2021, 04/0 11/2019, 04/24/2019, Additional history exists COVID-19 Vaccine ( season) 2023 04/13/2022 Influenza Vaccine (FLU shot) [...] as of this encounter Visit Diagnoses Diagnosis Numbness and tingling in left hand- Primary Disturbance of skin sensation documented in this encounter Advance Directives Latest Code Status on File Code Status Date Activated Date Inactivated Comments No Code 06/28/2021 3:36 AM 06/29/2021 8:55 PM This order reflects the patients wishes and were consensually agreed upon. Question Answer Comments Discussion of Advance Directives occurred with: Patient Care Teams Vamp Presser Relationship Specialty Start Date End Date Agustín Jarvis MD [address] [facility] [place] [address] PCP - General 03/20/02 documented as of this encounter
--- OUTSIDE RECORDS SUMMARY | 2023-04-13 06:39 | External Medical Summary ---
Author Name Unknown Address Unknown Organization K0G:[facility] [place] [address] [place] [address] Laboratory Report Ordering Provider Test Date Status LASHONDA JIMENEZ 02/23/2023 05:40:00 Final Observation Date Value Abnormality Reference (Units ) Status BUN 02/23/2023 05:40:00 29 Above high normal 6-20 (mg/dL) Final Creatinine 02/23/2023 05:40:00 1.6 Above high normal 0.5-1.0 (mg/dL) Final Glomerular filtration rate/1.73 sq M.predicted [Volume Rate/Area] in Serum, Plasma or Blood by Creatinine-based formula (CKD-EPI) 02/23/2023 05:40:00 34 Below low normal >=60 (mL/min) Final eGFR is calculated based on the CKD-EPI 2020 equation SODIUM 02/23/2023 05:40:00 138 135-146 (m mol/L) Final Potassium 02/23/2023 05:40:00 5.9 Above high normal 3. 5-5.1 (mmol/L) Final Cl 02/23/2023 05:40:00 105 98-107 (mm ol/L) Final CO2 02/23/2023 05:40:00 22 22-32 (mmo l/L) Final Anion gap 02/23/2023 05:40:00 11 7-15 (mmol /L) Final Glucose 02/23/2023 05:40:00 86 70-120 (mg /dL) Final Calcium 02/23/2023 05:40:00 9.3 8.4-10.2 ( mg/dL) Final Performing Location [facility] [address] [place] [address]
--- OUTSIDE RECORDS SUMMARY | 2023-04-13 06:39 | External Medical Summary ---
Author Name Unknown Address Unknown Organization [id number]:[facility] - [address] [place] [address] Laboratory Report Ordering Provider Test Date Status LASHONDA JIMENEZ 02/22/2023 05:45:00 Final Observation Date Value Abnormality Reference (Units ) Status CRP, low-sensitivity 02/22/2023 05:45:00 10 Above high normal <=5 (mg/L) Final Performing Location [facility] - [address] [facility] [address]
--- OUTSIDE RECORDS SUMMARY | 2023-04-13 06:39 | External Medical Summary ---
Author Name Unknown Address Unknown Organization [id number]:[facility]ORY [facility] - [address] [facility] [address] Laboratory Report Ordering Provider Test Date Status GABBI GALDAMEZ 03/13/2023 14:45:00 Final Observation Date Value Abnormality Reference (Units ) Status HbA1C 03/13/2023 14:45:00 6.9 Above high normal 4. 0-5.6 (%) Final The use of HbA1c to monitor glycemic status is based on normal hemoglobin and HbA composition. This test should not be used in patients with abnormal hemoglobin that affects the half life of the red blood cell or the in vivo glycation rates. Glucose, estimated average 03/13/2023 14:45:00 151 Above high normal <126 (mg/dL) Jorge tai Performing Location LAB[facility]ATORY [facility] - [address] [facility] [address]
--- OUTSIDE RECORDS SUMMARY | 2023-04-13 06:39 | External Medical Summary ---
Author Name Unknown Address Unknown Organization K09:[facility] [place] [address] Laboratory Report Ordering Provider Test Date Status LASHONDA JIMENEZ 02/22/2023 05:45:00 Final Observation Date Value Abnormality Reference (Units ) Status WBC, Total 02/22/2023 05:45:00 7.52 4.00-10.8 0 (K/uL) Final RBC 02/22/2023 05:45:00 3.06 3.85-5.15 (M/uL) Final Hemoglobin 02/22/2023 05:45:00 8.9 Below low normal 12 .0-15.3 (g/dL) Final HCT 02/22/2023 05:45:00 29.3 Below low normal 36. 0-45.2 (%) Final MCV 02/22/2023 05:45:00 95.8 81.5-97.5 (fL) Final MCH 02/22/2023 05:45:00 29.1 27.0-34.0 (pg) Final MCHC 02/22/2023 05:45:00 30.4 32.0-36.0 (g/dL) Final RDW 02/22/2023 05:45:00 15.4 11.5-15.5 (%) Final Platelets 02/22/2023 05:45:00 300 140-400 (K /uL) Final MPV 02/22/2023 05:45:00 11.4 6.6-11.1 ( fL) Final Performing Location [facility] [place] [address]
--- OUTSIDE RECORDS SUMMARY | 2023-04-13 06:39 | External Medical Summary ---
Author Name Unknown Address Unknown Organization K1F:[facility] - [address] [place] [address] Laboratory Report Ordering Provider Test Date Status GABBI GALDAMEZ 03/13/2023 14:45:00 Final Observation Date Value Abnormality Reference (Units ) Status SYNC LEUKOCYTES IN BLOOD BY AUTOMATED COUNT 03/13/2023 14:45:00 7.33 4.00-10.80 (K/uL) Final Segs 03/13/2023 14:45:00 63.5 40.0-75.0 (%) Final Lymphs % 03/13/2023 14:45:00 27.4 18.0-42.0 (%) Final Monos 03/13/2023 14:45:00 6.3 1.0-11.0 (%) Final Eosinophils 03/13/2023 14:45:00 2.2 0.0-6.0 (%) Final Basos 03/13/2023 14:45:00 0.1 0.0-2.0 (%) Final Immature Granulocyte, Percent 03/13/2023 14:45:00 0.5 0.0-2.0 (%) Final Absolute Segs 03/13/2023 14:45:00 4.65 1.80-7.70 (K/uL) Final Lymphs, absolute 03/13/2023 14:45:00 2.01 1.00-4.80 (K/ul) Final Monos, Abs 03/13/2023 14:45:00 0.46 0.00-1.10 (K/uL) Final Eos, Abs 03/13/2023 14:45:00 0.16 0.00-0.70 (K/uL) Final Basos, Abs 03/13/2023 14:45:00 0.01 0.00-0.20 (K/uL) Final Immature Granulocytes, Number 03/13/2023 14:45:00 0.04 0.00-0.20 (K/uL) Final Performing Location LABORATORY [facility] - [address] [facility] [address] [place] [address]
--- OUTSIDE RECORDS SUMMARY | 2023-04-13 06:39 | External Medical Summary ---
Author Name Unknown Address Unknown Organization K0G:[facility]ORY [place] [address] - [address] [place] [address] Laboratory Report Ordering Provider Test Date Status ANDREW SUÁREZ 02/24/2023 05:15:00 Final Observation Date Value Abnormality Reference (Units ) Status BUN 02/24/2023 05:15:00 27 Above high normal 6-20 (mg/dL) Final Creatinine 02/24/2023 05:15:00 1.4 Above high normal 0.5-1.0 (mg/dL) Final Glomerular filtration rate/1.73 sq M.predicted [Volume Rate/Area] in Serum, Plasma or Blood by Creatinine-based formula (CKD-EPI) 02/24/2023 05:15:00 38 Below low normal >=60 (mL/min) Final eGFR is calculated based on the CKD-EPI 2020 equation SODIUM 02/24/2023 05:15:00 139 135-146 (m mol/L) Final Potassium 02/24/2023 05:15:00 5.2 Above high normal 3. 5-5.1 (mmol/L) Final Cl 02/24/2023 05:15:00 104 98-107 (mm ol/L) Final CO2 02/24/2023 05:15:00 24 22-32 (mmo l/L) Final Anion gap 02/24/2023 05:15:00 11 7-15 (mmol /L) Final Glucose 02/24/2023 05:15:00 72 70-120 (mg /dL) Final Calcium 02/24/2023 05:15:00 9.2 8.4-10.2 ( mg/dL) Final Performing Location [facility] - [address] [place] [address]
--- OUTSIDE RECORDS SUMMARY | 2023-04-13 06:39 | External Medical Summary ---
Author Name Unknown Address Unknown Organization K09:[facility] [place] [address] Laboratory Report Ordering Provider Test Date Status PRIYANK BENAVIDEZ 02/26/2023 06:19:52 Final Observation Date Value Abnormality Reference (Units ) Status BUN 02/26/2023 06:19:52 27 Above high normal 6-20 (mg/dL) Final Creatinine 02/26/2023 06:19:52 1.5 Above high normal 0.5-1.0 (mg/dL) Final Glomerular filtration rate/1.73 sq M.predicted [Volume Rate/Area] in Serum, Plasma or Blood by Creatinine-based formula (CKD-EPI) 02/26/2023 06:19:52 37 Below low normal >=60 (mL/min) Final eGFR is calculated based on the CKD-EPI 2020 equation SODIUM 02/26/2023 06:19:52 138 135-146 (m mol/L) Final Potassium 02/26/2023 06:19:52 5.1 3.5-5.1 (m mol/L) Final Cl 02/26/2023 06:19:52 103 98-107 (mm ol/L) Final CO2 02/26/2023 06:19:52 25 22-32 (mmo l/L) Final Anion gap 02/26/2023 06:19:52 10 7-15 (mmol /L) Final Glucose 02/26/2023 06:19:52 77 70-120 (mg /dL) Final Calcium 02/26/2023 06:19:52 9.0 8.4-10.2 ( mg/dL) Final Albumin 02/26/2023 06:19:52 3.5 Below low normal 3.8 -5.0 (g/dL) Final Phosphate 02/26/2023 06:19:52 3.6 2.5-4.8 (m g/dL) Final Performing Location [facility] [place] [address]
--- OUTSIDE RECORDS SUMMARY | 2023-04-13 06:39 | External Medical Summary ---
Author Name Unknown Address Unknown Organization K01:[facility] - [address] [place] [address] Laboratory Report Ordering Provider Test Date Status GABBI GALDAMEZ 03/13/2023 14:45:00 Final Observation Date Value Abnormality Reference (Units ) Status Vitamin B12 03/13/2023 14:45:00 [phone] (pg/mL) Final Performing Location [facility] - [address] [place] [address]
--- OUTSIDE RECORDS SUMMARY | 2023-04-13 06:39 | External Medical Summary ---
Author Name Unknown Address Unknown Organization K0G:[facility] [address] - [address] [place] [address] Laboratory Report Ordering Provider Test Date Status LASHONDA JIMENEZ 02/23/2023 05:40:00 Final Observation Date Value Abnormality Reference (Units ) Status WBC, Total 02/23/2023 05:40:00 8.97 4.00-10.8 0 (K/uL) Final RBC 02/23/2023 05:40:00 3.06 3.85-5.15 (M/uL) Final Hemoglobin 02/23/2023 05:40:00 8.9 Below low normal 12 .0-15.3 (g/dL) Final HCT 02/23/2023 05:40:00 29.0 Below low normal 36. 0-45.2 (%) Final MCV 02/23/2023 05:40:00 94.8 81.5-97.5 (fL) Final MCH 02/23/2023 05:40:00 29.1 27.0-34.0 (pg) Final MCHC 02/23/2023 05:40:00 30.7 32.0-36.0 (g/dL) Final RDW 02/23/2023 05:40:00 15.3 11.5-15.5 (%) Final Platelets 02/23/2023 05:40:00 280 140-400 (K /uL) Final MPV 02/23/2023 05:40:00 11.5 6.6-11.1 ( fL) Final Performing Location LAB[facility]ATORY [facility] [address] [place] [address]
--- OUTSIDE RECORDS SUMMARY | 2023-04-13 06:39 | External Medical Summary | Summary of Care ---
Author Name Unknown Organization [facility] Address [address] [place] [address] Phone [phone] Care Team Providers Care Business Services Clerk Name Role Phone Agustín Jarvis MD Primary Care Provider [phone] Reason for Visit * Reason Comments Follow Up Ear check Encounter Details Date Type Department Care Team Description 01/22/2023 Office Visit Otolaryngology, Christy Parks [address] [id number] Gary Kilgore PA-C [address] [id number] Perforation of right tympanic membrane* Allergies Active [...] suspected opioid overdose. Seek immediate medical attention. [email or web address] 1 Each 3 11/11/2022 Active documented as [...] Pressure - - Pulse - - Temperature 36.5 C (97.7 F) 01/22/2023 3:52 PM ED T Respiratory Rate - - Oxygen Saturation - - Inhaled Oxygen Concentration - - Weight - - Height 165.1 cm (5' 5") 01/22/2023 3:52 PM EDT Body Mass Index - - documented in this encounter Functional Status Functional [...] E78.5 DM type 2, not at goal ([facility]) E11.9 HYPERTENSION NOS I10 S/P carotid endarterectomy Z98.890 ETD (Eustachian tube dysfunction), bilateral H69.83 At risk for barotrauma due to hyperbaric oxygen therapy Z91.89 Right asymmetrical SNHL [id number] Hypoglycemia E16.2 Hypothermia T68.XXXA Diarrhea of presumed infectious origin R19.7 Type 2 diabetes mellitus with hemoglobin A1c goal of less than 7.0% ([facility]) E11.9 Osteoporosis M81.0 Past Medical History: [...] performed by Hanny Graham DO at END[facility]COPY [facility] EGD, FLEXIBLE, TRANSENDOSCOPIC DILATION <30MM 08/23/11 biopsisies repeat egd in 4 weeks LAP;W/HYSTERECTOMY 1969,s Hysterectomy Complete LAPAROSCOPY; CHOLECYSTECTOMY Cholecystectomy, Laproscopic MISCELLANEOUS ORDER ([facility] ONLY) Left 02/25/2013 Left leg bypass, [place] [facility] [place] Right Dr Page [facility] [place], UNDER [...] for suspectedopioid overdose. Seek immediate medical attention. [email or web address] 1 Each 3 No current facility-administered medications [...] 01/22/2023 8:29 AM documented in this encounter Nursing Notes * Julee Escalante LPN - 01/22/2023 3:53 PM EDT Chief Complaint Patient presents with Follow Up Ear check Trista Almaraz is a 77 year old female here for follow up per below. Patient denies ear pain or drainage bilaterally. 10/22/2022 (in office), Visit date not found (telemedicine) Plan: Findings and recommendations were discussed with the patient. Pertinent provider notes, labs,and imaging were reviewed. Follow-up in 3 months for recheck of right TM perforation. Discussed conservative measures for jaw pain and recommend physical therapy referral if no improvement following this. Gary Kilgore PA-C 10/22/2022 9:43 AM documented in this encounter Plan of Treatment Upcoming Encounters Date Type Specialty Care Team Description 02/14/2023 Hospital Encounter Endoscopy Hanny Graham, DO [address] [place] [id number] 02/14/2023 Surgery Endoscopy Hanny Graham, DO [address] [place] [address] COLONOSCOPY FLEXIBLE PROXIMAL DIAGNOSTIC Scheduled Procedures Name [...] D LEVEL ONCE IN A LIFETIME-USE SMARTSET# [id number] 1986 DXA Scan 1996 Zoster Vaccines (1 [...] Advance Directives occurred with: Patient Care Teams Business Services Clerk Relationship Specialty Start Date End Date Agustín Jarvis MD [address] [place] [id number] PCP - General 03/20/02 documented as of this encounter
--- OUTSIDE RECORDS SUMMARY | 2023-04-13 06:39 | External Medical Summary ---
Author Name Unknown Address Unknown Organization K0G:LABORATORY [facility] [address] [place] [address] Laboratory Report Ordering Provider Test Date Status LASHONDA JIMENEZ 02/16/2023 05:30:00 Final Observation Date Value Abnormality Reference (Units ) Status BUN 02/16/2023 05:30:00 28 Above high normal 6-20 (mg/dL) Final Creatinine 02/16/2023 05:30:00 1.4 Above high normal 0.5-1.0 (mg/dL) Final Glomerular filtration rate/1.73 sq M.predicted [Volume Rate/Area] in Serum, Plasma or Blood by Creatinine-based formula (CKD-EPI) 02/16/2023 05:30:00 40 Below low normal >=60 (mL/min) Final eGFR is calculated based on the CKD-EPI 2020 equation SODIUM 02/16/2023 05:30:00 138 135-146 (m mol/L) Final Potassium 02/16/2023 05:30:00 4.7 3.5-5.1 (m mol/L) Final Cl 02/16/2023 05:30:00 105 98-107 (mm ol/L) Final CO2 02/16/2023 05:30:00 22 22-32 (mmo l/L) Final Anion gap 02/16/2023 05:30:00 11 7-15 (mmol /L) Final Glucose 02/16/2023 05:30:00 110 70-120 (mg /dL) Final Calcium 02/16/2023 05:30:00 9.3 8.4-10.2 ( mg/dL) Final [facility] Location [facility] [address] [place] [address]
--- OUTSIDE RECORDS SUMMARY | 2023-04-13 06:39 | External Medical Summary ---
Author Name Unknown Address Unknown Organization K1F:LAB[facility]ATORY [facility] - [address] [place] [address] Laboratory Report Ordering Provider Test Date Status TY GALDAMEZLER 03/13/2023 14:45:00 Final Observation Date Value Abnormality Reference (Units ) Status BUN 03/13/2023 14:45:00 27 Above high normal 6-20 (mg/dL) Final Creatinine 03/13/2023 14:45:00 1.1 Above high normal 0.5-1.0 (mg/dL) Final Glomerular filtration rate/1.73 sq M.predicted [Volume Rate/Area] in Serum, Plasma or Blood by Creatinine-based formula (CKD-EPI) 03/13/2023 14:45:00 50 Below low normal >=60 (mL/min) Final eGFR is calculated based on the CKD-EPI 2020 equation SODIUM 03/13/2023 14:45:00 135 135-146 (m mol/L) Final Potassium 03/13/2023 14:45:00 5.1 3.5-5.1 (m mol/L) Final Cl 03/13/2023 14:45:00 98 98-107 (mm ol/L) Final CO2 03/13/2023 14:45:00 26 22-32 (mmo l/L) Final Anion gap 03/13/2023 14:45:00 11 7-15 (mmol /L) Final Glucose 03/13/2023 14:45:00 368 Above high normal 70 -120 (mg/dL) Final Albumin 03/13/2023 14:45:00 4.2 3.8-5.0 (g /dL) Final AST (Aspartate aminotransferase) 03/13/2023 14:45:00 16 10-35 (U/L) Fin al Alk Phos 03/13/2023 14:45:00 220 Above high normal 35 -130 (U/L) Final Bilirubin, Total 03/13/2023 14:45:00 0.2 <=1 .2 (mg/dL) Final Calcium 03/13/2023 14:45:00 9.6 8.4-10.2 ( mg/dL) Final Protein 03/13/2023 14:45:00 6.7 6.0-8.3 (g /dL) Final ALT (Alanine aminotransferase) 03/13/2023 14:45:00 15 10-35 (U/L) Jorge tai Performing Location LABORATORY [facility] - [address] [place], [place] [address]fel[place] [address]
--- OUTSIDE RECORDS SUMMARY | 2023-04-13 06:39 | External Medical Summary ---
Author Name Unknown Address Unknown Organization K09:[facility] [place] [address] Laboratory Report Ordering Provider Test Date Status ANDREW SUÁREZ 02/28/2023 06:10:00 Final Observation Date Value Abnormality Reference (Units ) Status BUN 02/28/2023 06:10:00 26 Above high normal 6-20 (mg/dL) Final Creatinine 02/28/2023 06:10:00 1.3 Above high normal 0.5-1.0 (mg/dL) Final Glomerular filtration rate/1.73 sq M.predicted [Volume Rate/Area] in Serum, Plasma or Blood by Creatinine-based formula (CKD-EPI) 02/28/2023 06:10:00 43 Below low normal >=60 (mL/min) Final eGFR is calculated based on the CKD-EPI 2020 equation SODIUM 02/28/2023 06:10:00 136 135-146 (m mol/L) Final Potassium 02/28/2023 06:10:00 4.8 3.5-5.1 (m mol/L) Final Cl 02/28/2023 06:10:00 101 98-107 (mm ol/L) Final CO2 02/28/2023 06:10:00 24 22-32 (mmo l/L) Final Anion gap 02/28/2023 06:10:00 11 7-15 (mmol /L) Final Glucose 02/28/2023 06:10:00 93 70-120 (mg /dL) Final Calcium 02/28/2023 06:10:00 9.0 8.4-10.2 ( mg/dL) Final Performing Location [facility] [place] [address]
--- OUTSIDE RECORDS SUMMARY | 2023-04-13 06:39 | External Medical Summary ---
Author Name Unknown Address Unknown Organization K0G:LABORATORY [facility] [address] [place] [address] Laboratory Report Ordering Provider Test Date Status LASHONDA JIMENEZ 02/16/2023 05:30:00 Final Observation Date Value Abnormality Reference (Units ) Status WBC, Total 02/16/2023 05:30:00 9.10 4.00-10.8 0 (K/uL) Final RBC 02/16/2023 05:30:00 2.89 3.85-5.15 (M/uL) Final Hemoglobin 02/16/2023 05:30:00 8.3 Below low normal 12 .0-15.3 (g/dL) Final HCT 02/16/2023 05:30:00 26.6 Below low normal 36. 0-45.2 (%) Final MCV 02/16/2023 05:30:00 92.0 81.5-97.5 (fL) Final MCH 02/16/2023 05:30:00 28.7 27.0-34.0 (pg) Final MCHC 02/16/2023 05:30:00 31.2 32.0-36.0 (g/dL) Final RDW 02/16/2023 05:30:00 14.1 11.5-15.5 (%) Final Platelets 02/16/2023 05:30:00 269 140-400 (K /uL) Final MPV 02/16/2023 05:30:00 11.3 6.6-11.1 ( fL) Final Performing Location LABORATORY [facility] [address] [place] [address]
--- OUTSIDE RECORDS SUMMARY | 2023-04-13 06:39 | External Medical Summary ---
Author Name Unknown Address Unknown Organization K1F:[facility]ATORY [facility] - [address] [place] [address] Laboratory Report Ordering Provider Test Date Status GABBI GALDAMEZ 03/13/2023 14:45:00 Final Observation Date Value Abnormality Reference (Units ) Status Magnesium 03/13/2023 14:45:00 1.7 1.5-2.6 (m g/dL) Final Performing Location LAB[facility]ATORY [facility] - [address] [place] [address]
--- OUTSIDE RECORDS SUMMARY | 2023-04-13 06:39 | External Medical Summary ---
Author Name Unknown Address Unknown Organization K01:LABORATORY [facility] [address] [facility] [address] Laboratory Report Ordering Provider Test Date Status LASHONDA JIMENEZ 02/22/2023 05:57:31 Final Observation Date Value Abnormality Reference (Units ) Status Erythrocyte sedimentation rate by Photometric method 02/22/2023 05:57:31 43 Above high normal <30 (mm/hour) Final Performing Location LAB[facility]ATORY [facility] [address] [facility] [address]
--- OUTSIDE RECORDS SUMMARY | 2023-04-13 06:39 | External Medical Summary ---
Author Name Unknown Address Unknown Organization K01[place] [place] [address] [place] [id number] Laboratory Report Ordering Provider Test Date Status GABBI GALDAMEZ 03/13/2023 14:45:00 Final Observation Date Value Abnormality Reference (Units ) Status Iron 03/13/2023 14:45:00 32 Below low normal 33-151 (ug/dL) Final Iron-binding capacity 03/13/2023 14:45:00 282 250-425 (ug/dL) Final Transferrin Sat % 03/13/2023 14:45:00 11 Below low normal 15-55 (%) Final Performing Location [place] [facility] [place] [address] [place] [id number]
[2023-04-13] MEDS: POLYETHYLENE (MIRALAX) 17 GM PACK PO PRN (07:41)
[2023-04-13] MEDS: PIPERACILLIN/TAZOBACTAM 4.5 GM in DEXTROSE 5% MINI-B 100 ML IV SCH ×3 (07:49→23:18)
[2023-04-13] MEDS: LOSARTAN POTASSIUM 50 MG TAB PO SCH (08:14)
[2023-04-13] MEDS: FUROSEMIDE 20 MG TAB PO SCH (08:15)
[2023-04-13] MEDS: ACETAMINOPHEN 500 MG TAB PO SCH ×3 (08:15→21:27)
[2023-04-13] MEDS: DOCUSATE SODIUM 100 MG CAP PO SCH ×2 (08:15→21:25)
[2023-04-13] MEDS: FERROUS GLUCONATE 324 MG TAB PO SCH (08:15)
[2023-04-13] MEDS: SPIRONOLACTONE 25 MG TAB PO SCH (08:16)
[2023-04-13] MEDS: HEPARIN SOD 5,000 UNIT/0.5 ML VIAL SQ SCH ×2 (08:17→21:28)
[2023-04-13] MEDS: carvediloL 25 MG TAB PO SCH ×2 (08:17→21:27)
[2023-04-13] MEDS: oxyCODONE HCL IR 5 MG TAB (IMMEDIATE RELEASE) PO PRN ×3 (08:30→23:17)
[2023-04-13] MEDS: INSULIN ASPART PER UNIT CHARGE SC SCH ×4 (08:32→21:32)
[2023-04-13 08:47] LABS: BUN Creatinine Ratio 22.7 (10-20); Calcium 8.4 mg/dl (8.6-10.3); Creatinine Clr Calc Pharmacy 22.5 ml/min; Est GFR (African American) 30.9 ml/min; Est GFR (Non-African American) 26.7 ml/min; Potassium 3.8 mmol/L (3.5-5.1)
[2023-04-13 08:48] LABS: Hematocrit (blood only) 32.1 % (37.0-47.0); Hemoglobin 10.3 g/dl (12.0-16.0); Mean Corpuscular Hemoglobin 28.1 pg (25.0-34.0); Mean Corpuscular Hgb Conc 32.1 g/dL (32.0-36.0); Mean Corpuscular Volume 87.7 fL (80.0-100.0); Mean Platelet Volume 10.5 fL (9.4-12.4); Platelet Count 272 K/uL (130-400); RDW Coefficient of Variation 15.9 % (11.5-14.5); Red Blood Count 3.66 M/uL (4.20-5.40); White Blood Count 9.56 K/ul (4.8-10.8)
[2023-04-13] MEDS: SODIUM CHLORIDE 0.9% 500 ML IV SCH (11:36)
--- NOTE | 2023-04-13 12:29 | Hospitalist Progress Note ---
Date of Service April 13, 2023 Assessment & Plan (1) Osteomyelitis of left foot: Plan: "Type 1 diabetes with diabetic peripheral angiopathy with possible gangrene" Positive bone biopsy on 03/28 revealed left foot osteomyelitis following left transmetatarsal amputation Patient was previously on Amoxicillin and Bactrim outpatient Blood cultures negative Continue Zosyn 4.5g IV q8h, currently having a urine culture sent this will continue until we have the results of the urine culture. Acetaminophen as needed for pain Below knee amputation on 04/10/23, Dr. Umana, pain management post procedure has been worsened at night. Attempting a dose of Neurontin this evening as cautiously as she has had some intolerance to scheduled Neurontin in the past. (2) Type 1 diabetes: Plan: Last A1c 7.7% on 04/01/2023 SSI; continue Lantus 12u HS Continue Novolog BSG ACHS Target BSG range 110-160mg/dL, CF 70, carb ratio 25 T1DM diet as tolerated Adjust regimen as needed (3) Chronic kidney disease: Plan: Patient with a slight bit of JOVANY discovered on 13 April 1 L of IV fluid to be administered, holding her diuretics there were previously restarted Renal dosing for antibiotics (4) Anemia: Plan: Pt with anemia s/p 2 u prbc with exaggerated response. previous iron b12 and folate are normal, maybe anemia or ch disease Plan Disposition: transfer to [facility] early next week DNR/DNI T1DM diet VTE PPx: Heparin 5000u SQ q12h Admission and Anticipated Discharge Date Admission Date: April 09, 2023 Subjective overall pain is improved but she has cyclic evening pain which creates a difficulty with her sleeping. She is also having some changes in urine color she is wearing the prosthesis to her right leg but still anticipating rehab at [facility] this coming week for her more recent left below-knee amputation Physical Exam Physical Exam: awake alert and pleasant. Bandage on her left leg. Examination shows heart to be regular lungs be clear abdomen is relatively benign with normal active bowel sounds Results & Data Results & Data Vital Signs (Past 12 Hours) Vital Signs Temp Pulse Resp BP Pulse Ox O2 Del Method 04/13/23 07:49 97.7 F 56 L 18 126/58 L 95 Room Air Laboratory Results reviewed CBCacute blood loss anemia reviewed PRP PG Care Time/CCT Total # of Minutes Spent Total Time Spent with Patient: Total time spent is greater than 50% in coordination of care (as documented) at patient's floor/unit and/or counseling patient: Coding Level of Care Code 63306 SUB INP/OBS CARE 235MIN Diagnoses Osteomyelitis of left foot M86.9 Type 1 diabetes E10.9 Chronic kidney disease N18.9 Chronic kidney disease stage: stage 3 (moderate) Anemia D64.9 (3) Chronic kidney disease Chronic kidney disease stage: stage 3 (moderate)
[2023-04-13] MEDS ORDERED: SODIUM CHLORIDE 0.9% 1,000 ML IV SCH (12:30)
[2023-04-13] MEDS: ALUMINUM/MAGNESIUM SUSP 30 ML UDC PO PRN ×2 (14:16→23:32)
[2023-04-13] MEDS ORDERED: QUEtiapine FUMARATE 25 MG TABLET PO SCH (21:00)
[2023-04-13] MEDS ORDERED: LANTUS PER UNIT CHARGE SQ SCH ×2 (21:00)
[2023-04-13] MEDS: PANTOprazole 40 MG TAB PO SCH (21:27)
[2023-04-13] MEDS: GABAPENTIN 100 MG CAP PO SCH (21:27)
[2023-04-13] MEDS: NIFEdipine EXTENDED REL 30 MG TABCR PO SCH (21:27)
[2023-04-13] MEDS: LANTUS PER UNIT CHARGE SQ SCH (21:29)
[2023-04-13] MEDS: MELATONIN 3 MG TAB PO PRN (23:17)
[2023-04-14] MEDS: SODIUM CHLORIDE 0.9% 1,000 ML IV SCH ×2 (00:51→18:29)
[2023-04-14] MEDS: LEVOTHYROXINE SODIUM 100 MCG TABLET PO SCH (06:15)
[2023-04-14] MEDS: PIPERACILLIN/TAZOBACTAM 4.5 GM in DEXTROSE 5% MINI-B 100 ML IV SCH ×3 (07:37→23:31)
[2023-04-14] MEDS: DOCUSATE SODIUM 100 MG CAP PO SCH ×2 (07:45→22:33)
[2023-04-14] MEDS: ACETAMINOPHEN 500 MG TAB PO SCH ×3 (07:45→22:37)
[2023-04-14] MEDS: LOSARTAN POTASSIUM 50 MG TAB PO SCH (07:46)
[2023-04-14] MEDS: HEPARIN SOD 5,000 UNIT/0.5 ML VIAL SQ SCH ×2 (07:46→22:38)
[2023-04-14] MEDS: FERROUS GLUCONATE 324 MG TAB PO SCH (07:47)
[2023-04-14 08:11] LABS: Hematocrit (blood only) 29.3 % (37.0-47.0); Hemoglobin 9.5 g/dl (12.0-16.0); Mean Corpuscular Hemoglobin 28.1 pg (25.0-34.0); Mean Corpuscular Hgb Conc 32.4 g/dL (32.0-36.0); Mean Corpuscular Volume 86.7 fL (80.0-100.0); Mean Platelet Volume 9.9 fL (9.4-12.4); Platelet Count 238 K/uL (130-400); RDW Coefficient of Variation 15.7 % (11.5-14.5); RDW Standard Deviation 50.2 fL (36.4-46.3); Red Blood Count 3.38 M/uL (4.20-5.40); White Blood Count 8.87 K/ul (4.8-10.8)
[2023-04-14 08:37] LABS: BUN Creatinine Ratio 19.4 (10-20); Calcium 8.4 mg/dl (8.6-10.3); Creatinine Clr Calc Pharmacy 16.2 ml/min; Est GFR (African American) 20.7 ml/min; Est GFR (Non-African American) 17.9 ml/min; Magnesium 1.8 mg/dl (1.7-2.4); Potassium 3.8 mmol/L (3.5-5.1)
[2023-04-14] MEDS: carvediloL 25 MG TAB PO SCH ×2 (08:44→22:35)
[2023-04-14] MEDS ORDERED: SODIUM CHLORIDE 0.9% 1,000 ML IV SCH (08:45)
[2023-04-14] MEDS: INSULIN ASPART PER UNIT CHARGE SC SCH ×4 (09:12→22:45)
--- NOTE | 2023-04-14 13:58 | Pharmacy Report ---
Pharmacy Glycemic Short Note 2 - Date of Service April 14, 2023 - Glycemic Short BSG Results (Last 24 hours): 04/13/23 04/13/23 04/14/23 16:52 20:42 07:55 Glucose POC Glucose 162 H 93 84 04/14/23 04/14/23 04/14/23 07:57 11:48 11:49 Glucose 81 POC Glucose 68 L* 72 04/14/23 04/14/23 04/14/23 12:39 12:41 12:58 Glucose POC Glucose 55 L* 56 L* 55 L* OUTPATIENT ANTIDIABETIC REGIMEN: * Levemir 12 units SQ HS * Humalog ACHS HbA1c: 7.7% on 04/01/23 ASSESSMENT: 04/14: * Patient received total of 14 units of insulin yesterday, of which 10 units were basal (had reduced previous basal by ~16%) * Fasting BSG 84 mg/dL - Scr rising more this AM, given only 2 units of insulin with breakfast and lunch BSG dropping to 55 mg/dL - treated per hypoglycemia protocol. Removed CR with lunch check. Plan to scale back further on evening Lantus 04/12: * BSGs well-controlled yesterday, ranging 91-141 mg/dL * POD #1 s/p left leg BKA * No changes anticipated to glycemic regimen today 04/10: * Patient received total 25 units of insulin yesterday; 12 units basal and 13 units bolus. * BSGs yesterday were 101-591-945-245 mg/dl. * Since post prandial BSGs were high, Novolog CF and CR tightened today. * Plan for L leg below knee amputation tomorrow, and NPO after midnight. * Will loosen Novolog correction in AM but continued with basal insulin the same for tonight. 04/09: * 77 y/o F admitted for foot osteomyelitis currently getting IV antibiotics. Patient with history of diabetes managed on basal and bolus insulins at home. * Home basal dose was ordered last night. Fasting BSG today was 129 mg/dl. Continued the same for HS. * Novolog parameters ordered based on stress of 2. Pre-lunch BSG was 161 mg/dl. Continued the same. PLAN FOR INPATIENT GLYCEMIC CONTROL: * Basal insulin * Lantus 5-7 units SQ HS * Bolus insulin * NovoLog per scale ACHS or Q6hrs while NPO * Goal Range: Low 110 mg/dL - High 140 mg/dL * Correction Factor: 35 mg/dL/unit * Nutritional / Prandial insulin per carb ratio of 1 unit per -- grams CHO consumed
[2023-04-14] MEDS: SODIUM CHLORIDE 0.9% 500 ML IV SCH (14:46)
--- NOTE | 2023-04-14 17:57 | Hospitalist Progress Note ---
Date of Service April 14, 2023 Assessment & Plan (1) Osteomyelitis of left foot: Plan: "Type 1 diabetes with diabetic peripheral angiopathy with possible gangrene" Positive bone biopsy on 03/28 revealed left foot osteomyelitis following left transmetatarsal amputation Patient was previously on Amoxicillin and Bactrim outpatient Blood cultures negative Continue Zosyn 4.5g IV q8h, currently having a urine culture sent this will continue until we have the results of the urine culture. Acetaminophen as needed for pain Below knee amputation on 04/10/23, Dr. Umana, pain management post procedure has improved with Neurontin in the evening I believe her sedation is caused by her Seroquel which will be discontinued (2) Type 1 diabetes: Plan: Last A1c 7.7% on 04/01/2023 SSI; continue Lantus 12u HS Continue Novolog BSG ACHS Target BSG range 110-160mg/dL, CF 70, carb ratio 25 T1DM diet as tolerated Adjust regimen as needed (3) Chronic kidney disease: Plan: Patient with a slight bit of JOVANY discovered on 13 April 1 L of IV fluid to be administered, holding her diuretics there were previously restarted Renal dosing for antibiotics JOVANY worsened slightly which would be consistent with ATN. We will continue IV fluids and follow her renal function (4) Anemia: Plan: Pt with anemia s/p 2 u prbc with exaggerated response. previous iron b12 and folate are normal, maybe anemia or ch disease Plan Disposition: transfer to [facility] early next week DNR/DNI T1DM diet VTE PPx: Heparin 5000u SQ q12h Admission and Anticipated Discharge Date Admission Date: April 09, 2023 Subjective pt is overly sleepy today likely from combination of Neurontin and seroquel , will stop seroquel and continue Neurontin as try to help with stump pain overall better pain control Physical Exam Physical Exam: awake alert and pleasant. Bandage on her left leg. Examination shows heart to be regular lungs be clear abdomen is relatively benign with normal active bowel sounds she is lethargic but makes sense Results & Data Results & Data Vital Signs (Past 12 Hours) Vital Signs Temp Pulse Resp BP Pulse Ox O2 Del Method 04/14/23 15:01 97.3 F L 52 L 16 116/49 L 93 Room Air 04/14/23 07:41 97.5 F L 51 L 16 131/64 95 Room Air Laboratory Results Reviewed CBC reviewed chemistry PG Care Time/CCT Total # of Minutes Spent Total Time Spent with Patient: Total time spent is greater than 50% in coordination of care (as documented) at patient's floor/unit and/or counseling patient: Coding Level of Care Code 72355 SUB INP/OBS CARE 3/50MIN Diagnoses Osteomyelitis of left foot M86.9 Type 1 diabetes E10.9 Chronic kidney disease N18.9 Chronic kidney disease stage: stage 3 (moderate) Anemia D64.9 (3) Chronic kidney disease Chronic kidney disease stage: stage 3 (moderate)
[2023-04-14] MEDS: GABAPENTIN 100 MG CAP PO SCH (18:16)
[2023-04-14] MEDS: NIFEdipine EXTENDED REL 30 MG TABCR PO SCH (22:37)
[2023-04-14] MEDS: PANTOprazole 40 MG TAB PO SCH (22:37)
[2023-04-14] MEDS: LANTUS PER UNIT CHARGE SQ SCH (22:45)
[2023-04-15] MEDS: MoRPHine SULFATE 4 MG/ML 1 ML CARP\\VIAL IV PRN (03:09)
[2023-04-15] MEDS: oxyCODONE HCL IR 5 MG TAB (IMMEDIATE RELEASE) PO PRN ×2 (04:38→12:32)
[2023-04-15] MEDS: LEVOTHYROXINE SODIUM 100 MCG TABLET PO SCH (06:36)
[2023-04-15 06:47] LABS: Hematocrit (blood only) 29.8 % (37.0-47.0); Hemoglobin 9.6 g/dl (12.0-16.0); Mean Corpuscular Hemoglobin 28.2 pg (25.0-34.0); Mean Corpuscular Hgb Conc 32.2 g/dL (32.0-36.0); Mean Corpuscular Volume 87.6 fL (80.0-100.0); Mean Platelet Volume 9.9 fL (9.4-12.4); Platelet Count 230 K/uL (130-400); RDW Coefficient of Variation 15.4 % (11.5-14.5); RDW Standard Deviation 49.5 fL (36.4-46.3); White Blood Count 8.78 K/ul (4.8-10.8)
[2023-04-15 07:11] LABS: BUN Creatinine Ratio 17.6 (10-20); Calcium 7.4 mg/dl (8.6-10.3); Est GFR (Non-African American) 13.8 ml/min; Magnesium 1.7 mg/dl (1.7-2.4); Potassium 4.3 mmol/L (3.5-5.1)
[2023-04-15] MEDS: SODIUM CHLORIDE 0.9% 1,000 ML IV SCH (07:30)
[2023-04-15] MEDS: carvediloL 25 MG TAB PO SCH ×2 (08:47→19:42)
[2023-04-15] MEDS: INSULIN ASPART PER UNIT CHARGE SC SCH ×4 (08:50→22:23)
[2023-04-15] MEDS: PIPERACILLIN/TAZOBACTAM 4.5 GM in DEXTROSE 5% MINI-B 100 ML IV SCH ×2 (08:52→17:40)
[2023-04-15] MEDS: FERROUS GLUCONATE 324 MG TAB PO SCH (08:53)
[2023-04-15] MEDS: DOCUSATE SODIUM 100 MG CAP PO SCH ×2 (08:53→19:41)
[2023-04-15] MEDS: HEPARIN SOD 5,000 UNIT/0.5 ML VIAL SQ SCH ×2 (08:53→19:41)
[2023-04-15] MEDS: ACETAMINOPHEN 500 MG TAB PO SCH ×3 (08:53→23:27)
--- NOTE | 2023-04-15 09:57 | Surgery Progress Note ---
Date of Service April 15, 2023 Assessment & Plan (1) Status post below-knee amputation of left lower extremity: Plan: Pt is POD #4 after LLE BKA, doing well post op. Pain is currently controlled. Wound is well approximated, no active bleeding. OK for d/c to rehab when arrangements made and cleared per medicine. Will see in office in 2 weeks for staple removal. Pt no longer needs abx for her LLE TMA wound infection. Admission and Anticipated Discharge Date Admission Date: April 09, 2023 Subjective 77 yo f POD #4 after LLE BKA, seen in f/u today. Pt states they are working on her pain control, but some of the medications have been making her very sedated. Had some diarrhea over the weekend. No other new complaints. Review of Systems Review of Systems: All systems reviewed & are unremarkable except as noted in HPI & below Physical Exam Constitutional: WD/WN, vitals as above + thin and cooperative; not in distress Cardiovascular: Vessels: femoral pulses present Musculoskeletal: Extremities: + amputation noted (RLE BKA, LLE BKA) Skin: no rashes, warm and dry + incision (LLE BKA mild bloody drainage on dressing. intact with talita.mildly tende) Neurologic: moves all extremities and awake; no focal motor deficits and not confused Psychiatric: A+Ox3, euthymic affect Results & Data Vital Signs (Past 12 Hours) Vital Signs Temp Pulse Resp BP Pulse Ox O2 Del Method 04/15/23 07:55 36.4 C L 57 L 16 144/61 H 94 Room Air
[2023-04-15] MEDS: ALUMINUM/MAGNESIUM SUSP 30 ML UDC PO PRN (12:23)
--- NOTE | 2023-04-15 12:51 | Pharmacy Report ---
Pharmacy Glycemic Short Note 2 - Date of Service April 15, 2023 - Glycemic Short BSG Results (Last 24 hours): 04/14/23 04/14/23 04/14/23 12:39 12:41 12:58 Glucose POC Glucose 55 L* 56 L* 55 L* 04/14/23 04/14/23 04/14/23 13:48 14:25 16:42 Glucose POC Glucose 53 L* 218 H 205 H 04/14/23 04/15/23 04/15/23 20:41 01:12 06:29 Glucose 66 L POC Glucose 211 H 132 H 04/15/23 04/15/23 04/15/23 07:47 07:50 08:16 Glucose POC Glucose 62 L* 65 L* 63 L* 04/15/23 04/15/23 08:31 11:33 Glucose POC Glucose 75 140 H OUTPATIENT ANTIDIABETIC REGIMEN: * Levemir 12 units SQ HS * Humalog ACHS HbA1c: 7.7% on 04/01/23 ASSESSMENT: 04/15 * BSGs yesterday were 84-68-72-55/218-211 mg/dL. Patient received 13 units of insulin (7 units of basal, 6 units of bolus). * Fasting today was 62/65 and lunch was 140 mg/dL. Patient's appetite has improved (ate all of breakfast + 3/4's of lunch). So does not appear to require dextrose in fluids at this point. * Patient's kidney function continues to worsen (Scr rising more today from 2.52 to 3.13) so insulin is most likely remaining/ not being metabolized. * Will continue insulin at this time. Decrease Lantus slightly to 6 units. 04/14: * Patient received total of 14 units of insulin yesterday, of which 10 units were basal (had reduced previous basal by ~16%) * Fasting BSG 84 mg/dL - Scr rising more this AM, given only 2 units of insulin with breakfast and lunch BSG dropping to 55 mg/dL - treated per hypoglycemia protocol. Removed CR with lunch check. Plan to scale back further on evening Lantus 04/12: * BSGs well-controlled yesterday, ranging 91-141 mg/dL * POD #1 s/p left leg BKA * No changes anticipated to glycemic regimen today 04/10: * Patient received total 25 units of insulin yesterday; 12 units basal and 13 units bolus. * BSGs yesterday were 053-195-987-245 mg/dl. * Since post prandial BSGs were high, Novolog CF and CR tightened today. * Plan for L leg below knee amputation tomorrow, and NPO after midnight. * Will loosen Novolog correction in AM but continued with basal insulin the same for tonight. 04/09: * 77 y/o F admitted for foot osteomyelitis currently getting IV antibiotics. Patient with history of diabetes managed on basal and bolus insulins at home. * Home basal dose was ordered last night. Fasting BSG today was 129 mg/dl. Continued the same for HS. * Novolog parameters ordered based on stress of 2. Pre-lunch BSG was 161 mg/dl. Continued the same. PLAN FOR INPATIENT GLYCEMIC CONTROL: * Basal insulin * Lantus 6 units SQ HS * Bolus insulin * NovoLog per scale ACHS or Q6hrs while NPO * Goal Range: Low 110 mg/dL - High 140 mg/dL * Correction Factor: 35 mg/dL/unit * Nutritional / Prandial insulin per carb ratio of 1 unit per 20 grams CHO consumed
[2023-04-15] MEDS: SODIUM CHLORIDE 0.9% 500 ML IV SCH (13:02)
[2023-04-15 15:55] LABS: Albumin Level 2.6 gm/dl (3.4-5.0); BUN Creatinine Ratio 17.7 (10-20); Calcium 7.5 mg/dl (8.6-10.3); Est GFR (African American) 14.5 ml/min; Est GFR (Non-African American) 12.5 ml/min; Phosphorus 4.5 mg/dl (2.5-4.9); Potassium 4.2 mmol/L (3.5-5.1)
--- NOTE | 2023-04-15 16:51 | Nephrology Consultation ---
Date of Consultation April 15, 2023 Assessment & Plan (1) Acute kidney injury: (2) Hyponatremia: (3) Anemia: Plan 77 yo F with UA and imaging unremarkable. stage 3 A CKD, b/l cr 1.3-1.5 mg/dl secondary to renovascular disease and solitary kidney status post right radical nephrectomy for renal cell carcinoma in 2012. Prior Urinalysis was negative for hematuria or proteinuria. 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 Renal function and electrolyte levels repeatedly stable and close to baseline on admission however over last 3 days renal function progressively worsen rapidly and creatinine was 3.1 this morning with sodium 129. Although she was more than 9 L positive since admission, clinically she looked volume depleted and she was complaining of thirst and diarrhea. She was continued on IV normal saline [facility] this afternoon showed sodium dropping further to 126 and creatinine up to 3.4 on NS. Urine osmolality and urine sodium was ordered but collected at this time. Her blood pressure has been variable. --Discontinue normal saline, repeat sodium in 2 hours, waiting on urine osmolality --Check urinalysis and renal ultrasound --continue on losartan 100 mg po daily --Avoid nephrotoxic medications. Thank you for allowing me to participate in your patient's care. It was a pleasure to see Trista. History of Present Illness Reason for Consultation: JOVANY, Hyponatremia Attending Physician: Hugo Richards MD History of Present Illness Ms. Trista Almaraz is a 77-year-old female with history of stage 3A CKD, b/l cr around 1.4 to 1.5, severe peripheral vascular disease admitted to the hospital with nonhealing left foot ulcer and had left BKA on 04/11/2023. Nephrology consult was requested as she developed JOVANY and acute hyponatremia over last 3 days. Electronic medical records are reviewed in detail during patient's visit. Susie presented to the hospital on 04/08/2023 with worsening left foot infection. She had left metatarsal amputation/revision done few days prior to that admission and since being discharged she has noticed worsening of her wound. She had left below knee amputation on 04/11/2023. She recovered well from the surgery. Over last few days her renal function has been progressively wo rsening, creatinine was up to 3.1 this morning. She was also noted to have hyponatremia. Sodium has been 1 31-1 32 since admission but dropped further to 129 this morning. She reports having some diarrhea over last few days. Intake has been decent. She has been on IV normal saline since yesterday. Reports having decent urine output. Blood pressure has been variable with occasional low blood pressure. No UA or renal imaging available. Has stage 3A chronic kidney disease secondary to renovascular disease, and solitary left kidney status post right nephrectomy for renal cell carcinoma, b aseline creatinine has been around 1.3-1.5 and estimated GFR around 35-40. Prior Urinalysis was negative for hematuria or proteinuria. In April 2013 she was found to have right renal artery stenosis and a right renal cell carcinoma and she underwent robotic radical nephrectomy. No history of chronic NSAID use, history of autoimmune disorder. She is a non smoker. No family history of chronic kidney disease or end-stage renal disease. Has significant atherosclerotic vascular disease, previously had bilateral carotid endarterectomy, had left popliteal to peroneal artery bypass in 2012. In February 2017 she had right lower extremity angiography with mechanical atherectomy and thrombolysis with tPA of distal vessels as well as angioplasty of popliteal arteries . Over last 1 year had 2 stent in Rt LE. Eventually she had rt BKA in 2019 Has hypertension well-controlled on carvedilol 25 mg twice a day, losartan 100, and spironolactone 50 /d. DM without retinopathy or proteinuria. No history of coronary artery disease, cardiac catheterization several years ago was unremarkable. She has h/o GERD, previous EGD in 2012 showed esophagitis and has been on PPI for 3 years. Also had h/o scleroderma and COPD. Has lower extremity venous insufficiency. Has h/o CREST syndrome. Overall she feels well this morning, reports her left BKA surgical site pain is well controlled. She reports having diarrhea over last 2 to 3 days and feels thirsty. Allergies Allergy/AdvReac Type Severity Reaction Status Date / Time enflurane Allergy Severe nausea, Verified 04/08/23 11:04 jaundiced Iodinated Contrast Media Allergy Intermediate Hives- IVP Verified 04/08/23 11:04 dye CHECO Inhibitors Allergy Mild hives Verified 04/08/23 11:04 nickel Allergy Mild Redness, Verified 04/08/23 11:04 itching liraglutide [From Victoza] AdvReac Mild Severe Verified 04/08/23 11:04 nausea Home Medications Medication Instructions Recorded Confirmed Type glucagon HCl 1 mg solution for 1 mg subcut Q20M PRN hypoglycemia 06/29/21 04/08/23 Rx injection (Glucagon (HCl) #1 ea Emergency Kit) atorvastatin 80 mg tablet 80 mg PO QPM #90 tabs 02/23/22 04/08/23 Rx cholecalciferol (vitamin D3) 25 1,000 unit PO HS 06/19/22 04/08/23 History mcg (1,000 unit) capsule (Vitamin D3) clopidogrel 75 mg tablet (Plavix) 75 mg PO QAM #90 tabs 07/12/22 04/08/23 Rx mometasone-formoterol HFA 200 2 puff inhalation BID PRN 12/20/22 04/08/23 History mcg-5 mcg/actuation aerosol Shortness Of Breath inhaler (Dulera) carvedilol 25 mg tablet (Coreg) 25 mg PO BID #180 tabs 01/23/23 04/08/23 Rx docusate sodium 100 mg capsule 100 mg PO BID 02/05/23 04/08/23 History (Dulcolax Stool Softener (docusate)) nystatin 100,000 unit/gram topical 1 applic topical BID #60 grams 02/06/23 04/08/23 Rx powder acetaminophen 500 mg tablet 1,000 mg (2 x 500 mg) PO Q8H PRN 02/15/23 04/08/23 Rx (Tylenol Extra Strength) fever or pain #30 tabs insulin detemir U-100 100 unit/mL 12 unit (0.12 mL) subcut HS #1 mL 02/15/2311/23 Rx subcutaneous solution (Levemir U-100 Insulin) insulin lispro 100 unit/mL 1 sliding scale dose subcut ACHS 02/15/23 04/08/23 Rx subcutaneous solution (Humalog #10 mL U-100 Insulin) nifedipine 60 mg tablet,extended 60 mg PO HS #90 tabs 03/04/23 04/08/23 Rx release ferrous gluconate 324 mg (37.5 mg 324 mg PO QAM 03/20/23 04/08/23 History iron) tablet furosemide 20 mg tablet 20 mg PO QAM 03/20/23 04/08/23 History losartan 100 mg tablet 100 mg PO QAM 03/20/23 04/08/23 History omeprazole 20 mg capsule,delayed 20 mg PO HS 03/20/23 04/08/23 History release spironolactone 50 mg tablet 50 mg PO QAM 03/20/23 04/08/23 History amoxicillin 500 mg capsule 500 mg PO TID 14 days #42 caps 04/01/23 04/08/23 Rx sulfamethoxazole 800 1 tab PO BID 10 days #20 tabs 04/03/23 04/08/23 Rx mg-trimethoprim 160 mg tablet (Bactrim DS) levothyroxine 100 mcg tablet See Rx Instructions .Route .COMPLEX 04/08/23 04/08/23 History Patient History Medical History (Updated 04/15/23 @ 16:50 by Lisy Milian MD) Hyponatremia Acute kidney injury PAD (peripheral artery disease) Wound infection left foot wound - nonhealing and currently wearing a wound vac (03/2023) Sepsis treated inpatient 02/2023 [facility] Dehiscence of amputation stump of left lower extremity reason for upcoming procedure History of COVID-19 12/20/22 [facility] - no symptoms tested positive 02/15/23 at [facility], was told it was related to testing positive within 90 days back in December 2022 Diabetic foot ulcer Left heel with debridement in the past Constipation TMJ derangement no current issues Cerebral aneurysm "very small"/under suveillance S/P angiogram of extremity left leg Conductive hearing loss of right ear Hypothyroidism Vertigo hx Diabetes IDDM Below-knee amputation of right lower extremity Osteoporosis Scleroderma CREST syndrome follows with PCP Chronic GERD Benign essential hypertension Raynauds syndrome Hx of renal cell cancer R renal (2012) s/p right nephrectomy, no chemo/xrt Anemia Chronic History of MRSA infection 04/2017 (right foot - has since been amputated) > "no active infection" Carotid artery stenosis s/p Left CEA (2002), right CEA (1995) Vascular monitoring per recent visit 03/2023 Renal artery stenosis Right renal stent attempted 2010, s/p right nephrectomy 2012 Diverticular disease GERD (gastroesophageal reflux disease) Chronic kidney disease Stage III Deep vein thrombosis RLE DVT dx 2017; "chronic" PCP/vascular monitoring Hyperlipidemia Hypertension Asthma Surgical History (Updated 04/12/23 @ 10:24 by Marzena Pastor PA-C) Status post amputation of left foot through metatarsal bone Status post below knee amputation of right lower extremity History of transmetatarsal amputation of left foot History of esophagogastroduodenoscopy (EGD) S/P amputation right Below the knee amputation History of oophorectomy B/L OVARIES History of carpal tunnel surgery RIGHT HAND, TRIGGER RIGHT FINGER History of left breast biopsy 1997 (benign) H/O sinus surgery History of angioplasty MULTIPLE OF LE'S WITH STENTS TO LOWER EXTREMITIES PLACED History of procedure for peripheral vascular disease LEFT POPLITEAL S/P PERONEAL ARTERY BYPASS 2012; RLE ANGIO WITH INTERVENTION 06/2017 H/O carotid endarterectomy LEFT (2002), RIGHT (1995) History of atherectomy LEFT (02/2017) History of amputation of lesser toe of right foot MULTIPLE TOE AMPUTATIONS/I&D (ALL RT TOES; all the left toes have been amputated) History of cardiac cath 2011= NO STENTS ([facility] [place]) Nausea and vomiting after administration of anesthetic agent Hx of lumpectomy LEFT BREAST (BENIGN) History of hysterectomy MERYL W/ BSO History of nephrectomy RIGHT (2012) renal cell carcinoma History of appendectomy History of cholecystectomy History of colonoscopy History of endoscopic sinus surgery History of cataract surgery RT/LEFT History of tonsillectomy Family History Father Family hx of colon cancer Family history of diabetes mellitus Mother Lung cancer Stroke Unknown Rheumatoid arthritis Other No family history of adverse response to anesthesia No family history of bleeding disorder Social History Smoking Status: Never smoker Second Hand Exposure: No; Do You Dip or Chew Tobacco: No; Hx Alcohol Use: No Hx Substance Use: No Preferred Language: Serbian Communication Ability: Effective Visual Impairment: No Limitations Hearing Ability: Normal [employer] Required: No Beliefs That Will Affect Care: None marital status: Current Living Situation: Spouse Current Living Situation Comment: lives in 1 story home with . home nursing 3x/week current occupational status: retired How many Children do You have: 0 How many Children do You have Comment: able to assist with care as needed. Other Information That Helps Us Care for You: No Feels Safe at Home: Yes Safety Concerns: Feels Safe At This Time Diet: diabetic during the past year weight has: decreased > 10 lbs Seatbelt Use: always Do you think of yourself as: straight/heterosexual Gender Identity: Female Assistive Devices: Cane, Walker and Wheelchair Review of Systems Review of Systems: Detailed review of system was otherwise unremarkable. Physical Exam Constitutional: WD/WN, vitals as above no acute distress Eyes: + anicteric sclerae Neck: normal visual inspection Respiratory: normal respiratory effort Auscultation: lungs clear to auscult ation bilaterally Cardiovascular: Rate/Rhythm: regular rate and regular rhythm Heart Sounds: normal S1 and normal S2 Gastrointestinal (Abdomen): Inspection/Auscultation: abdomen normal to inspection Percussion/Palpation: abdomen soft; abdomen nontender Musculoskeletal: rt BKA, left BKA dressing intact and dry Neurologic: no focal motor deficits Psychiatric: Orientation: alert and oriented x 3 Affect: euthymic affect Results & Data Vital Signs (Past 12 Hours) Vital Signs Temp Pulse Pulse Resp BP Pulse Ox O2 Del Method 04/15/23 15:16 36.8 C 60 16 138/63 95 Room Air 04/15/23 07:55 36.4 C L 57 L 16 144/61 H 94 Room Air PG Care Time/CCT Total # of Minutes Spent Total Time Spent with Patient: Total time spent is greater than 50% in coordination of care (as documented) at patient's floor/unit and/or counseling patient: Coding Level of Care Code 48045 INT INP/OBS CARE 3/75MIN Diagnoses Acute kidney injury N17.9 Hyponatremia E87.1 Anemia D64.9
--- NOTE | 2023-04-15 18:10 | Hospitalist Progress Note ---
Date of Service April 15, 2023 Assessment & Plan (1) Osteomyelitis of left foot: Plan: "Type 1 diabetes with diabetic peripheral angiopathy with possible gangrene" Positive bone biopsy on 03/28 revealed left foot osteomyelitis following left transmetatarsal amputation Patient was previously on Amoxicillin and Bactrim outpatient Blood cultures negative Continue Zosyn 4.5g IV q8h, currently having a urine culture sent this will continue until we have the results of the urine culture. Acetaminophen as needed for pain Below knee amputation on 04/10/23, Dr. Umana, pain management post procedure has improved with Neurontin in the evening I believe her sedation is caused by her Seroquel which will be discontinued continue low dose hs neurontin (2) Type 1 diabetes: Plan: Last A1c 7.7% on 04/01/2023 SSI; continue Lantus 12u HS Continue Novolog (3) Chronic kidney disease: Plan: Patient withAKI discovered on 13 April , worsened despite ivf, now also hyponatremic nephrology consult, family states pt has solitary kideny pt has no complaints at this time diarrhea, c diff is pending (4) Anemia: Plan: Pt with anemia s/p 2 u prbc with exaggerated response. previous iron b12 and folate are normal, maybe anemia or ch disease Plan Disposition: transfer to [place] when stable DNR/DNI T1DM diet VTE PPx: Heparin 5000u SQ q12h Admission and Anticipated Discharge Date Admission Date: April 09, 2023 Subjective Patient's pain is better. She is having some diarrhea. This likely contributing to her renal failure and hyponatremia. With progression of both nephrology was asked to see the patient and they are in the process of working her up. IV fluid discontinued Patient is less sedate today Physical Exam Physical Exam: awake alert and pleasant. Bandage on her left leg. Examination shows heart to be regular lungs be clear abdomen is relatively benign with normal active bowel sounds Results & Data Results & Data Vital Signs (Past 12 Hours) Vital Signs Temp Pulse Pulse Resp BP Pulse Ox O2 Del Method 04/15/23 15:16 98.2 F 60 16 138/63 95 Room Air 04/15/23 07:55 97.5 F L 57 L 16 144/61 H 94 Room Air Laboratory Results Reviewed CBC reviewed chemistry consulted nephrology PG Care Time/CCT Total # of Minutes Spent Total Time Spent with Patient: Total time spent is greater than 50% in coordination of care (as documented) at patient's floor/unit and/or counseling patient: Coding Level of Care Code 24470 SUB INP/OBS CARE 235MIN Diagnoses Osteomyelitis of left foot M86.9 Type 1 diabetes E10.9 Chronic kidney disease N18.9 Chronic kidney disease stage: stage 3 (moderate) Anemia D64.9 (3) Chronic kidney disease Chronic kidney disease stage: stage 3 (moderate)
[2023-04-15 18:32] LABS: Appearance Urine Clear (Clear); Bilirubin Urine Negative (Negative); Blood Urine Negative (Negative); Color Urine Yellow; Glucose Urine UA Negative (Negative); Ketones Urine Trace (Negative); Leukocyte Esterase Urine Negative (Negative); Nitrite Urine Negative (Negative); Protein Urine Negative (Negative); Specific Gravity Urine 1.023 (1.000-1.030); Urobilinogen Urine Negative (Negative)
[2023-04-15 19:05] LABS: Thyroid Stimulating Hormone 3.143 uIu/ml (0.300-4.500)
[2023-04-15] MEDS: GABAPENTIN 100 MG CAP PO SCH (19:41)
[2023-04-15] MEDS: NIFEdipine EXTENDED REL 30 MG TABCR PO SCH (19:42)
[2023-04-15] MEDS: PANTOprazole 40 MG TAB PO SCH (19:42)
[2023-04-15] MEDS ORDERED: TOLVAPTAN 15 MG TABLET PO STA (21:11)
[2023-04-15] MEDS: LANTUS PER UNIT CHARGE SQ SCH (22:23)
[2023-04-16] MEDS: LEVOTHYROXINE SODIUM 100 MCG TABLET PO SCH (05:42)
[2023-04-16 06:23] LABS: Hematocrit (blood only) 31.4 % (37.0-47.0); Hemoglobin 10.2 g/dl (12.0-16.0); Mean Corpuscular Hgb Conc 32.5 g/dL (32.0-36.0); Mean Corpuscular Volume 86.3 fL (80.0-100.0); Mean Platelet Volume 10.3 fL (9.4-12.4); Platelet Count 252 K/uL (130-400); RDW Coefficient of Variation 15.4 % (11.5-14.5); RDW Standard Deviation 49.1 fL (36.4-46.3); Red Blood Count 3.64 M/uL (4.20-5.40); White Blood Count 9.05 K/ul (4.8-10.8)
[2023-04-16 06:40] LABS: Albumin Level 2.6 gm/dl (3.4-5.0); BUN Creatinine Ratio 17.3 (10-20); Calcium 8.2 mg/dl (8.6-10.3); Creatinine Clr Calc Pharmacy 11.4 ml/min; Est GFR (African American) 13.6 ml/min; Est GFR (Non-African American) 11.7 ml/min; Magnesium 1.7 mg/dl (1.7-2.4); Phosphorus 4.8 mg/dl (2.5-4.9); Potassium 4.2 mmol/L (3.5-5.1)
--- NOTE | 2023-04-16 08:06 | Ultrasound Report ---
US renal/blad retro comp CLINICAL HISTORY: ata TECHNIQUE: Multiple sonographic real-time images of the kidneys and bladder were obtained. COMPARISON: Comparison is made to CT abdomen pelvis 12/31/2018 FINDINGS: Right kidney is surgically absent. Left kidney measures 12.5 cm in length. No hydronephrosis or stone s seen. A Lassiter catheter is seen in the collapsed bladder. Right pleural effusion is incidentally noted. IMPRESSION: Unremarkable examination and in particular no evidence of hydronephrosis. ACT 112: Negative or not required by law. Electronically signed by: Gerald Tapia M.D. 04/16/2023 8:05 AM
[2023-04-16] MEDS: DOCUSATE SODIUM 100 MG CAP PO SCH ×2 (08:19→21:30)
[2023-04-16] MEDS: FERROUS GLUCONATE 324 MG TAB PO SCH (08:19)
[2023-04-16] MEDS: ACETAMINOPHEN 500 MG TAB PO SCH ×3 (08:20→21:17)
[2023-04-16] MEDS: carvediloL 25 MG TAB PO SCH ×2 (08:20→21:30)
[2023-04-16] MEDS: HEPARIN SOD 5,000 UNIT/0.5 ML VIAL SQ SCH ×2 (08:21→21:31)
[2023-04-16] MEDS: INSULIN ASPART PER UNIT CHARGE SC SCH ×4 (08:50→21:35)
[2023-04-16] MEDS: LOSARTAN POTASSIUM 50 MG TAB PO SCH (09:46)
[2023-04-16] MEDS: oxyCODONE HCL IR 5 MG TAB (IMMEDIATE RELEASE) PO PRN ×2 (09:49→19:36)
--- NOTE | 2023-04-16 10:47 | Nephrology Progress Note ---
Date of Service April 16, 2023 Assessment & Plan (1) Acute kidney injury: (2) Hyponatremia: (3) Anemia: Plan 77 yo F with JOVANY and hyponatremia. UA and imaging unremarkable. stage 3 A CKD, b/l cr 1.3-1.5 mg/dl secondary to renovascular disease and solitary kidney status post right radical nephrectomy for renal cell carcinoma in 2012. Prior Urinalysis was negative for hematuria or proteinuria. 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 Renal function and electrolyte was close to baseline on admission however over last 3 days renal function progressively worsen rapidly and creatinine was 3.6 this morning with sodium 126. Although she was more than 9 L positive since admission, clinically she looked volume depleted and she was complaining of thirst and diarrhea however, sodium continued to drop on normal saline and was stopped yesterday evening. Received 1 dose of tolvaptan 15 mg last night. Urine osmolality was above 300 which dropped to 220 this morning. Her blood pressure has been variable. --repeat sodium this afternoon --Continue Lassiter catheter --continue on losartan 100 mg po daily --Avoid nephrotoxic medications. --unclear etiology for blurry vision, no other neurological symptoms. Admission and Anticipated Discharge Date Admission Date: April 09, 2023 Juwan Richards was seen and evaluated this morning. She reports improvement in diarrhea although left BKA site pain worsened again with some activity. Has been trying to increase her fluid intake. Renal function continues to worsen slowly. Creatinine 3.6 this morning. Renal ultrasound yesterday was negative for postrenal obstruction. She had bladder scan yesterday as she was not able to urinate through the day and had 700 mL of urine and Lassiter catheter was placed. sodium continued to worsen yesterday on normal saline, off of normal saline now and sodium stable. Received 1 dose of tolvaptan last night. She complains changes in her vision over last few days specially with distant vision and she is having a hard time seeing things which she did not have any problem before. She denied any weakness in extremities, any numbness, speech difficulty. Review of Systems Review of Systems: Detailed review of system was otherwise unremarkable. Physical Exam Constitutional: WD/WN, vitals as above no acute distress Eyes: + anicteric sclerae Neck: normal visual inspection Respiratory: normal respiratory effort Auscultation: lungs clear to auscultation bilaterally Cardiovascular: Rate/Rhythm: regular rate and regular rhythm Heart Sounds: normal S1 and normal S2 Musculoskeletal: b/l BKA Neurologic: no focal motor deficits Psychiatric: Orientation: alert and oriented x 3 Affect: euthymic affect Results & Data Vital Signs (Past 12 Hours) Vital Signs Temp Pulse Pulse Resp BP BP Pulse Ox 04/16/23 10:14 36.7 C 62 18 147/61 H 95 04/16/23 08:21 36.6 C 67 17 173/72 H 92 O2 Del Method 04/16/23 10:14 Room Air 04/16/23 08:21 Room Air PG Care Time/CCT Total # of Minutes Spent Total Time Spent with Patient: Total time spent is greater than 50% in coordination of care (as documented) at patient's floor/unit and/or counseling patient: Coding Level of Care Code 70623 SUB INP/OBS CARE 2/35MIN Diagnoses Acute kidney injury N17.9 Hyponatremia E87.1 Anemia D64.9
[2023-04-16] MEDS ORDERED: TOLVAPTAN 15 MG TABLET PO STA (12:50)
[2023-04-16] MEDS: SODIUM CHLORIDE 1 GM TABLET PO SCH ×2 (14:12→21:29)
[2023-04-16] MEDS: GABAPENTIN 100 MG CAP PO SCH (18:43)
--- NOTE | 2023-04-16 19:01 | Hospitalist Progress Note ---
Date of Service April 16, 2023 Assessment & Plan (1) Osteomyelitis of left foot: Plan: "Type 1 diabetes with diabetic peripheral angiopathy with possible gangrene" Positive bone biopsy on 03/28 revealed left foot osteomyelitis following left transmetatarsal amputation Patient was previously on Amoxicillin and Bactrim outpatient Blood cultures negative Continue Zosyn 4.5g IV q8h, currently having a urine culture sent this will continue until we have the results of the urine culture. Acetaminophen as needed for pain Below knee amputation on 04/10/23, Dr. Umana, pain management post procedure has improved with Neurontin in the evening I believe her sedation is caused by her Seroquel which will be discontinued continue low dose hs neurontin (2) Type 1 diabetes: Plan: Last A1c 7.7% on 04/01/2023 SSI; continue Lantus 12u HS Continue Novolog (3) Chronic kidney disease: Plan: Patient withAKI discovered on 13 April , worsened despite ivf, now also hyponatremic nephrology consult, family states pt has solitary kideny pt has no complaints at this time diarrhea, c diff is pending (4) Anemia: Plan: Pt with anemia s/p 2 u prbc with exaggerated response. previous iron b12 and folate are normal, maybe anemia or ch disease (5) Vision changes: Plan: could be medication affect as did have issues in the past with Neurontin check non contrast head ct to eval for stroke as pt with know vascular disease Plan Disposition: transfer to [place] when stable DNR/DNI T1DM diet VTE PPx: Heparin 5000u SQ q12h Admission and Anticipated Discharge Date Admission Date: April 09, 2023 Subjective pt complains of bilateral vision blurriness in outer visual day, does not change if one eye is closed of the other pt with know vascular disease maybe affect of neurontin as had issues in past with this med Physical Exam Physical Exam: awake alert and pleasant. Bandage on her left leg. Examination shows heart to be regular lungs be clear abdomen is relatively benign with normal active bowel sounds no focal loss of strength or sensation to arms and no facial droop no visual filed cut but bilateral outer vision blurriness Results & Data Results & Data Vital Signs (Past 12 Hours) Vital Signs Temp Pulse Pulse Resp BP BP Pulse Ox 04/16/23 13:00 97.9 F 60 16 145/76 H 96 04/16/23 10:14 98.1 F 62 18 147/61 H 95 04/16/23 08:21 97.9 F 67 17 173/72 H 92 O2 Del Method 04/16/23 13:00 Room Air 04/16/23 10:14 Room Air 04/16/23 08:21 Room Air Laboratory Results reviewed cbc, reviewed prp orderd CT head PG Care Time/CCT Total # of Minutes Spent Total Time Spent with Patient: Total time spent is greater than 50% in coordination of care (as documented) at patient's floor/unit and/or counseling patient: Coding Level of Care Code 49775 SUB INP/OBS CARE 3/50MIN Diagnoses Osteomyelitis of left foot M86.9 Type 1 diabetes E10.9 Chronic kidney disease N18.9 Chronic kidney disease stage: stage 3 (moderate) Anemia D64.9 Vision changes H53.9 (3) Chronic kidney disease Chronic kidney disease stage: stage 3 (moderate)
[2023-04-16] MEDS: NIFEdipine EXTENDED REL 30 MG TABCR PO SCH (21:18)
--- NOTE | 2023-04-16 21:20 | CT Scan Report ---
Exam(s): CT HEAD Without Contrast EXAM: CT Head Without Intravenous Contrast CLINICAL HISTORY: Reason for exam: vison change eval for cva. TECHNIQUE: Axial computed tomography images of the head/brain without intravenous contrast. CTDI is 36.18 mGy and DLP is 625.8 mGy-cm. Automated exposure control was utilized for the study. A dose lowering technique was utilized adhering to the principles of ALARA. COMPARISON: No relevant prior studies available. FINDINGS: No acute intracranial hemorrhage. No midline shift or mass effect. The territorial celaya-white matter differentiation is maintained throughout. Age-related cerebral volume loss. Periventricular and subcortical white matter hypoattenuation, consistent with chronic microangiopathy. The visualized orbits appear grossly unremarkable. LEFT periorbital soft tissue swelling. The calvarium is intact. Small dural-based calcified lesion along the LEFT inner table measures 5 mm, likely a small meningioma. The visualized paranasal sinuses and mastoid air cells are grossly clear. IMPRESSION: No acute intracranial hemorrhage, midline shift, or mass effect. LEFT periorbital soft tissue swelling. Small dural-based calcified lesion along the LEFT inner table measures 5 mm, likely a small meningioma. Electronically signed by: Justyn Garduno MD 04/16/23 21:20 PM
[2023-04-16] MEDS: PANTOprazole 40 MG TAB PO SCH (21:29)
[2023-04-16] MEDS: LANTUS PER UNIT CHARGE SQ SCH (21:41)
[2023-04-17] MEDS: oxyCODONE HCL IR 5 MG TAB (IMMEDIATE RELEASE) PO PRN (04:01)
[2023-04-17] MEDS: LEVOTHYROXINE SODIUM 100 MCG TABLET PO SCH (05:14)
[2023-04-17 06:38] LABS: Hematocrit (blood only) 29.4 % (37.0-47.0); Hemoglobin 9.7 g/dl (12.0-16.0); Mean Corpuscular Hemoglobin 28.2 pg (25.0-34.0); Mean Corpuscular Volume 85.5 fL (80.0-100.0); Platelet Count 272 K/uL (130-400); RDW Coefficient of Variation 15.6 % (11.5-14.5); Red Blood Count 3.44 M/uL (4.20-5.40); White Blood Count 8.83 K/ul (4.8-10.8)
[2023-04-17 07:04] LABS: Albumin Level 2.5 gm/dl (3.4-5.0); BUN Creatinine Ratio 22.4 (10-20); Calcium 8.9 mg/dl (8.6-10.3); Est GFR (African American) 20.4 ml/min; Est GFR (Non-African American) 17.6 ml/min; Phosphorus 4.8 mg/dl (2.5-4.9); Potassium 3.9 mmol/L (3.5-5.1)
[2023-04-17] MEDS ORDERED: TOLVAPTAN 15 MG TABLET PO STA (07:58)
[2023-04-17] MEDS: INSULIN ASPART PER UNIT CHARGE SC SCH ×4 (09:09→20:52)
[2023-04-17] MEDS: ACETAMINOPHEN 500 MG TAB PO SCH ×3 (09:25→20:44)
[2023-04-17] MEDS: carvediloL 25 MG TAB PO SCH ×2 (09:26→20:45)
[2023-04-17] MEDS: FERROUS GLUCONATE 324 MG TAB PO SCH (09:26)
[2023-04-17] MEDS: HEPARIN SOD 5,000 UNIT/0.5 ML VIAL SQ SCH ×2 (09:26→20:48)
[2023-04-17] MEDS: LOSARTAN POTASSIUM 50 MG TAB PO SCH (09:27)
[2023-04-17] MEDS: SODIUM CHLORIDE 1 GM TABLET PO SCH ×2 (09:28→20:46)
[2023-04-17] MEDS: DOCUSATE SODIUM 100 MG CAP PO SCH ×2 (09:37→20:43)
--- NOTE | 2023-04-17 12:42 | Nephrology Progress Note ---
Date of Service April 17, 2023 Assessment & Plan (1) Acute kidney injury: (2) Hyponatremia: (3) Anemia: Plan 77 yo F with JOVANY and hyponatremia. UA and imaging unremarkable. stage 3 A CKD, b/l cr 1.3-1.5 mg/dl secondary to renovascular disease and solitary kidney status post right radical nephrectomy for renal cell carcinoma in 2012. Prior Urinalysis was negative for hematuria or proteinuria. 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 Renal function and electrolyte was close to baseline on admission however over last 3 days renal function progressively worsen rapidly and creatinine was 3.6 this morning with sodium 126. Although she was more than 9 L positive since admission, clinically she looked volume depleted and she was complaining of thirst and diarrhea however, sodium continued to drop on normal saline and was stopped yesterday evening. Received 1 dose of tolvaptan 15 mg last night. Urine osmolality was above 300 which dropped to 220 this morning. Her blood pressure has been variable. Sodium improved to 131, renal function improved, creatinine down to 2.5. --Tolvaptan x 1 dose now --continue on losartan 100 mg po daily --Avoid nephrotoxic medications. --unclear etiology for blurry vision, no other neurological symptoms. May need ophthalmology evaluation and recommendation Admission and Anticipated Discharge Date Admission Date: April 09, 2023 Juwan Richards was seen and evaluated this morning. She reports overall feeling better although she is still having difficulty with her eyesight. Had CT abdomen head last night showing some left-sided periorbital edema however clinically no sign of periorbital edema. Renal function slightly improved to creatinine 2.5 today, sodium improved to 131. Review of Systems Review of Systems: Detailed review of system was otherwise unremarkable. Physical Exam Constitutional: WD/WN, vitals as above no acute distress Eyes: + anicteric sclerae Neck: normal visual inspection Respiratory: normal respiratory effort Auscultation: lungs clear to auscultation bilaterally Cardiovascular: Rate/Rhythm: regular rate and regular rhythm Heart Sounds: normal S1 and normal S2 Musculoskeletal: b/l BKA Neurologic: no focal motor deficits Psychiatric: Orientation: alert and oriented x 3 Affect: euthymic affect Results & Data Vital Signs (Past 12 Hours) Vital Signs Temp Pulse Resp BP Pulse Ox O2 Del Method 04/17/23 07:23 36.5 C 64 16 147/62 H 94 Room Air PG Care Time/CCT Total # of Minutes Spent Total Time Spent with Patient: Total time spent is greater than 50% in coordination of care (as documented) at patient's floor/unit and/or counseling patient: Coding Level of Care Code 76391 SUB INP/OBS CARE 2/35MIN Diagnoses Acute kidney injury N17.9 Hyponatremia E87.1 Anemia D64.9
--- NOTE | 2023-04-17 13:40 | Pharmacy Report ---
Pharmacy Glycemic Short Note 2 - Date of Service April 17, 2023 - Glycemic Short BSG Results (Last 24 hours): 04/16/23 04/16/23 04/17/23 16:42 21:00 06:19 Glucose 106 H POC Glucose 90 106 H 04/17/23 04/17/23 07:32 11:42 Glucose POC Glucose 96 210 H OUTPATIENT ANTIDIABETIC REGIMEN: * Levemir 12 units SQ HS * Humalog ACHS HbA1c: 7.7% on 04/01/23 ASSESSMENT: 04/17/23 * BSGs yesterday were 39-221-00-106 mg/dL. Patient received 9 units of insulin (6 units of basal and 3 units of bolus). * Fasting today was 96 mg/dL. Creatinine improved from 3.58 to 2.55 mg/dL * Will continue Lantus at this time since fasting < goal. Do expect patient will require more as kidney function improves. * Tighten CR since lunch trended up significantly. 04/15 * BSGs yesterday were 84-68-72-55/218-211 mg/dL. Patient received 13 units of insulin (7 units of basal, 6 units of bolus). * Fasting today was 62/65 and lunch was 140 mg/dL. Patient's appetite has improved (ate all of breakfast + 3/4's of lunch). So does not appear to require dextrose in fluids at this point. * Patient's kidney function continues to worsen (Scr rising more today from 2.52 to 3.13) so insulin is most likely remaining/ not being metabolized. * Will continue insulin at this time. Decrease Lantus slightly to 6 units. 04/14: * Patient received total of 14 units of insulin yesterday, of which 10 units were basal (had reduced previous basal by ~16%) * Fasting BSG 84 mg/dL - Scr rising more this AM, given only 2 units of insulin with breakfast and lunch BSG dropping to 55 mg/dL - treated per hypoglycemia protocol. Removed CR with lunch check. Plan to scale back further on evening Lantus 04/12: * BSGs well-controlled yesterday, ranging 91-141 mg/dL * POD #1 s/p left leg BKA * No changes anticipated to glycemic regimen today 04/10: * Patient received total 25 units of insulin yesterday; 12 units basal and 13 units bolus. * BSGs yesterday were 991-509-518-245 mg/dl. * Since post prandial BSGs were high, Novolog CF and CR tightened today. * Plan for L leg below knee amputation tomorrow, and NPO after midnight. * Will loosen Novolog correction in AM but continued with basal insulin the same for tonight. 04/09: * 77 y/o F admitted for foot osteomyelitis currently getting IV antibiotics. Patient with history of diabetes managed on basal and bolus insulins at home. * Home basal dose was ordered last night. Fasting BSG today was 129 mg/dl. Continued the same for HS. * Novolog parameters ordered based on stress of 2. Pre-lunch BSG was 161 mg/dl. Continued the same. PLAN FOR INPATIENT GLYCEMIC CONTROL: * Basal insulin * Lantus 6 units SQ HS * Bolus insulin * NovoLog per scale ACHS or Q6hrs while NPO * Goal Range: Low 110 mg/dL - High 140 mg/dL * Correction Factor: 35 mg/dL/unit * Nutritional / Prandial insulin per carb ratio of 1 unit per 9 grams CHO consumed
--- NOTE | 2023-04-17 15:47 | Hospitalist Progress Note ---
Date of Service April 17, 2023 Assessment & Plan (1) Osteomyelitis of left foot: Plan: "Type 1 diabetes with diabetic peripheral angiopathy with possible gangrene" 04/11/2023, left BKA Dr. Umana Positive bone biopsy on 03/28 revealed left foot osteomyelitis following left transmetatarsal amputation Patient was previously on Amoxicillin and Bactrim outpatient Blood cultures negative, urine culture negative from 04/15/2023 Complete Zosyn 4.5g IV q8h, x5 days Acetaminophen, oxycodone, hydromorphone as needed for pain Patient's had issues with Neurontin for pain and Seroquel for sleep causing some minor confusion and lethargy (2) Type 1 diabetes: Plan: Last A1c 7.7% on 04/01/2023 SSI; continue Lantus dose reduced to 6 units at bedtime continue sliding scale and follow (3) Chronic kidney disease: Plan: Patient with JOVANY discovered on 13 April , worsened despite ivf, also hyponatremic nephrology consult, Previous nephrectomy due to renal cell carcinoma patient with solitary kidney Received 12 out of 10 in the evening of 04/16/2023 Worsened by diarrhea diarrhea, c diff is negative (4) Anemia: Plan: Pt with anemia combination of acute blood loss anemia and anemia of chronic disease s/p 2 u prbc previous iron b12 and folate are normal, (5) Vision changes: Plan: could be medication affect as did have issues in the past with Neurontin non contrast head ct negative for stroke old meningioma is stable Plan Disposition: transfer to [facility] when stable DNR/DNI T1DM diet VTE PPx: Heparin 5000u SQ q12h Admission and Anticipated Discharge Date Admission Date: April 09, 2023 Subjective Patient has improved overall. She still some visual limitations mostly problems with focusing. Yesterday her vision was more peripheral vision blurriness. There was a CT scan of the head done to look for intracranial abnormalities which did not show any but commented on the left periorbital soft tissue swelling. I asked our local radiologist, Geovani Coughlin, to review the films and he feels there is no asymmetry with regard to her periorbital soft tissues or concern for infections either in the external globe or in the retrobulbar space. Overall patient as a said was improved this is likely because we discontinued Neurontin therapy as she has had issues in the past with this. With regard to the blurry vision, more recently she is having some glucose control issues and this may impact her visual acuity Physical Exam Physical Exam: awake alert and pleasant. Bandage on her left leg. Examination shows heart to be regular lungs be clear abdomen is relatively benign with normal active bowel sounds no focal loss of strength or sensation to arms and no facial droop no visual filed cut out complaining of blurriness of visual acuity. Results & Data Results & Data Vital Signs (Past 12 Hours) Vital Signs Temp Pulse Pulse Resp BP Pulse Ox O2 Del Method 04/17/23 15:02 62 120/55 L 95 Room Air 04/17/23 14:28 97.7 F 62 16 121/45 L 95 Room Air 04/17/23 07:23 97.7 F 64 16 147/62 H 94 Room Air Laboratory Results Reviewed chemistry reviewed [id number] glucose reviewed CBC PG Care Time/CCT Total # of Minutes Spent Total Time Spent with Patient: Total time spent is greater than 50% in coordination of care (as documented) at patient's floor/unit and/or counseling patient: Coding Level of Care Code 50196 SUB INP/OBS CARE 3/50MIN Diagnoses Osteomyelitis of left foot M86.9 Type 1 diabetes E10.9 Chronic kidney disease N18.9 Chronic kidney disease stage: stage 3 (moderate) Anemia D64.9 Vision changes H53.9 (3) Chronic kidney disease Chronic kidney disease stage: stage 3 (moderate)
[2023-04-17] MEDS: NIFEdipine EXTENDED REL 30 MG TABCR PO SCH (20:44)
[2023-04-17] MEDS: PANTOprazole 40 MG TAB PO SCH (20:45)
[2023-04-17] MEDS: LANTUS PER UNIT CHARGE SQ SCH (20:55)
[2023-04-18] MEDS: LEVOTHYROXINE SODIUM 100 MCG TABLET PO SCH (05:43)
[2023-04-18 08:26] LABS: Albumin Level 2.8 gm/dl (3.4-5.0); BUN Creatinine Ratio 29.3 (10-20); Calcium 9.7 mg/dl (8.6-10.3); Creatinine Clr Calc Pharmacy 24.9 ml/min; Est GFR (African American) 34.8 ml/min; Est GFR (Non-African American) 30.1 ml/min; Phosphorus 4.4 mg/dl (2.5-4.9); Potassium 3.9 mmol/L (3.5-5.1)
[2023-04-18] MEDS: LOSARTAN POTASSIUM 50 MG TAB PO SCH (09:06)
[2023-04-18] MEDS: ACETAMINOPHEN 500 MG TAB PO SCH ×2 (09:06→14:05)
[2023-04-18] MEDS: FERROUS GLUCONATE 324 MG TAB PO SCH (09:06)
[2023-04-18] MEDS: carvediloL 25 MG TAB PO SCH (09:06)
[2023-04-18] MEDS: HEPARIN SOD 5,000 UNIT/0.5 ML VIAL SQ SCH (09:07)
[2023-04-18] MEDS: DOCUSATE SODIUM 100 MG CAP PO SCH (09:07)
[2023-04-18] MEDS: INSULIN ASPART PER UNIT CHARGE SC SCH ×3 (09:09→17:10)
--- NOTE | 2023-04-18 10:53 | Nephrology Progress Note ---
Date of Service April 18, 2023 Assessment & Plan (1) Acute kidney injury: (2) Hyponatremia: (3) Anemia: Plan 77 yo F with JOVANY and hyponatremia. UA and imaging unremarkable. stage 3 A CKD, b/l cr 1.3-1.5 mg/dl secondary to renovascular disease and solitary kidney status post right radical nephrectomy for renal cell carcinoma in 2012. Prior Urinalysis was negative for hematuria or proteinuria. 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 Renal function and electrolyte was close to baseline on admission however over last 3 days renal function progressively worsen rapidly and creatinine was 3.6 this morning with sodium 126. Although she was more than 9 L positive since admission, clinically she looked volume depleted and she was complaining of thirst and diarrhea however, sodium continued to drop on normal saline and was stopped yesterday evening. Received 1 dose of tolvaptan 15 mg last night. Urine osmolality was above 300 which dropped to 220 this morning. Her blood pressure has been variable. Sodium improved to 138, renal function improved, creatinine down to 1.6. --Decrease salt tablet to 1 g daily however, if discharge anticipated later today, okay to discontinue on discharge --continue on losartan 100 mg po daily --Avoid nephrotoxic medications. --If discharge anticipated later today, recommend checking lab in a week and then outpatient nephrology follow-up in 4 to 6 weeks. Admission and Anticipated Discharge Date Admission Date: April 09, 2023 Subjective She was seen and evaluated this morning. Overall she feels well. She feels like her vision issues still there but somewhat improved. Renal function improved, creatinine down to 1.6. Sodium improved to 138. Decent urine output. Blood pressure fair. Review of Systems Review of Systems: Detailed review of system was otherwise unremarkable. Physical Exam Constitutional: WD/WN, vitals as above no acute distress Eyes: + anicteric sclerae Neck: normal visual inspection Respiratory: normal respiratory effort Auscultation: lungs clear to auscultation bilaterally Cardiovascular: Rate/Rhythm: regular rate and regular rhythm Heart Sounds: normal S1 and normal S2 Musculoskeletal: Bilateral BKA Skin: no rashes, warm and dry Neurologic: no focal motor deficits Psychiatric: Orientation: alert and oriented x 3 Affect: euthymic affect Results & Data Vital Signs (Past 12 Hours) Vital Signs Temp Pulse Resp BP Pulse Ox O2 Del Method 04/18/23 07:04 36.9 C 65 15 154/61 H 95 Room Air PG Care Time/CCT Total # of Minutes Spent Total Time Spent with Patient: Total time spent is greater than 50% in coordination of care (as documented) at patient's floor/unit and/or counseling patient: Coding Level of Care Code 76257 SUB INP/OBS CARE 2/35MIN Diagnoses Acute kidney injury N17.9 Hyponatremia E87.1 Anemia D64.9
[2023-04-18] MEDS: SODIUM CHLORIDE 1 GM TABLET PO SCH (14:05)
[2023-04-18] MEDS ORDERED: CLOPIDOGREL BISULFATE 75 MG TAB PO ONE (15:16)
--- NOTE | 2023-04-18 15:48 | Discharge Summary ---
Discharge Summary Date of Service April 18, 2023 Notes For Next Care Provider Check BMP in 1 week Follow up with Vascular Surgery in 1 week Follow up with Nephrology in 4-6 weeks Medication Changes From Visit Added NaCl 1000mg po daily HOLD lasix and aldactone Added oxycodone prn pain Admission HPI Per Admitting Provider Trista is a 77-year-old female with PMH of RLE BKA, s/p left transmetatarsal amputation on 01/09/2023, T1DM, PAD, HTN, and hypothyroidism. She presented at the behest of the wound clinic following positive bone biopsy on 03/30 for acute left foot osteomyelitis. She endorses pain in left lateral foot, as well as the sole of her foot. Patient taking extra strength tylenol 500mg 4-6 tabs daily for pain. She stopped taking tramadol due to constipation. She rates the pain 4/10 at present. She characterizes it as dull, achy pain with intermittent, stabbing pain that last several seconds. No radiation. Patient took all of her morning medications. She denies tobacco, alcohol, smoking, recreational drug use. Patient has been taking outpatient antibiotics: amoxicillin since Sunday 04/01, started on Bactrim on 04/04. Last took plavix last night 04/07. Mild hypertension; otherwise vital stable on arrival. ED course: Zosyn ROS: Patient endorses intermittent sweats, left foot pain, and numbness and tingling in LLE. Patient denies fever, chills, CP, chest palpitations, pleuritic CP, SOB, abdominal pain, back pain, urinary s/s, burning with urination, or blood in urine. Principal Dx & Hospital Course #1 = Principal Diagnosis (1) Osteomyelitis of left foot: Type 1 diabetes with diabetic peripheral angiopathy with possible gangrene s/p 04/11/2023, left BKA Dr. Umana Positive bone biopsy on 03/28 revealed left foot osteomyelitis following left transmetatarsal amputation Patient was previously on Amoxicillin and Bactrim outpatient Blood cultures negative, urine culture negative from 04/15/2023 Completed 5 day course of Zosyn and no further abx needed as per Vascular Surgery Acetaminophen, oxycodone, as needed for pain Patient's had issues with Neurontin for pain -caused confusion Seroquel for sleep causing some minor confusion and lethargy-stopped f/u w/ Vascular in 1 more week for staple removal continue Plavix and statin for PAD (2) Type 1 diabetes: Last A1c 7.7% on 04/01/2023 SSI; continue Lantus dose reduced to 6 units at bedtime continue sliding scale and follow (3) Chronic kidney disease: Patient with JOVANY discovered on 13 April , worsened despite ivf, also hyponatremic Previous nephrectomy due to renal cell carcinoma patient with solitary kidney Worsened by diarrhea Renal US negative TSH normal nephrology consult appreciated--> treated with salt tabs and tolvaptan with improvement back to normal diarrhea, c diff is negative continue NaCl 1000mg po daily on discharge f/u BMP in 1 week f/u Nephro in 4-6 weeks hold lasix, aldactone continue losartan had some urinary retention prior to discharge likely 2/2 opioid use--> straight cath x 2 on 04/17 but urinating with lower post void residual prior to dischage and Lassiter not needed-monitor at [facility] (4) Anemia: Pt with anemia combination of acute blood loss anemia and anemia of chronic disease s/p 2 u prbc and hgb remains stable for many day sat 9 previous iron b12 and folate are normal continue Fe tabs and follow CBC as outpt (5) Vision changes: could be medication affect as did have issues in the past with Neurontin non contrast head ct negative for stroke old meningioma is stable stopped gabapentin and now resolved added gabapentin to allergy list Plan Disposition: transfer to [place] today DNR/DNI VTE PPx: Heparin 5000u SQ q12h Discharge Exam Constitutional WD/WN, vitals as above Respiratory normal respiratory effort, lungs clear to auscultation Cardiovascular RRR, no murmur, no edema Gastrointestinal (Abdomen) normal bowel sounds, soft, nontender, no hepatosplenomegaly Musculoskeletal left LE with BKA incision with talita c/d/i, no erythema or drainage RLE with BKA and prosthetic Psychiatric A+Ox3, euthymic affect Updated Medication List Medication Instructions Recorded Confirmed Type glucagon HCl 1 mg solution for 1 mg subcut Q20M PRN hypoglycemia 06/29/21 04/08/23 Rx injection (Glucagon (HCl) #1 ea Emergency Kit) atorvastatin 80 mg tablet 80 mg PO QPM #90 tabs 02/23/22 04/08/23 Rx cholecalciferol (vitamin D3) 25 1,000 unit PO HS 06/19/22 04/08/23 History mcg (1,000 unit) capsule (Vitamin D3) clopidogrel 75 mg tablet (Plavix) 75 mg PO QAM #90 tabs 07/12/22 04/08/23 Rx mometasone-formoterol HFA 200 2 puff inhalation BID PRN 12/20/22 04/08/23 History mcg-5 mcg/actuation aerosol Shortness Of Breath inhaler (Dulera) carvedilol 25 mg tablet (Coreg) 25 mg PO BID #180 tabs 01/23/23 04/08/23 Rx docusate sodium 100 mg capsule 100 mg PO BID 02/05/23 04/08/23 History (Dulcolax Stool Softener (docusate)) nystatin 100,000 unit/gram topical 1 applic topical BID #60 grams 02/06/23 04/08/23 Rx powder acetaminophen 500 mg tablet 1,000 mg (2 x 500 mg) PO Q8H PRN 02/15/23 04/08/23 Rx (Tylenol Extra Strength) fever or pain #30 tabs insulin detemir U-100 100 unit/mL 12 unit (0.12 mL) subcut HS #1 mL 02/15/23 04/08/23 Rx subcutaneous solution (Levemir U-100 Insulin) insulin lispro 100 unit/mL 1 sliding scale dose subcut ACHS 02/15/23 04/08/23 Rx subcutaneous solution (Humalog #10 mL U-100 Insulin) nifedipine 60 mg tablet,extended 60 mg PO HS #90 tabs 03/04/23 04/08/23 Rx release ferrous gluconate 324 mg (37.5 mg 324 mg PO QAM 03/20/23 04/08/23 History iron) tablet furosemide 20 mg tablet 20 mg PO QAM 03/20/23 04/08/23 History losartan 100 mg tablet 100 mg PO QAM 03/20/23 04/08/23 History omeprazole 20 mg capsule,delayed 20 mg PO HS 03/20/23 04/08/23 History release spironolactone 50 mg tablet 50 mg PO QAM 03/20/23 04/08/23 History amoxicillin 500 mg capsule 500 mg PO TID 14 days #42 caps 04/01/23 04/08/23 Rx sulfamethoxazole 800 1 tab PO BID 10 days #20 tabs 04/03/23 04/08/23 Rx mg-trimethoprim 160 mg tablet (Bactrim DS) levothyroxine 100 mcg tablet See Rx Instructions .Route .COMPLEX 04/08/23 History oxycodone 5 mg tablet 5 - 10 mg (1 - 2 x 5 mg) PO Q6H 04/18/23 Rx PRN moderate-severe pain #24 tabs sodium chloride 1,000 mg soluble 1,000 mg PO DAILY #30 tabs 04/18/23 Rx tablet Hospital Stay Data Consultations 04/08/23 15:55 ED Decision to Admit Stat 04/08/23 20:56 Consult Podiatry Routine 04/08/23 23:42 Consult Vascular Surgery Routine 04/15/23 09:29 Consult Nephrology Routine Procedures Performed Operation Date: 04/11/23 13:00 Actual Procedures p Left Leg Below Knee Amputation(Left) - Wesley Umana MD Diagnostic Imagining Performed 04/15/23 17:28 US renal/blad retro comp Routine 04/16/23 18:57 CT head/brain wo con Routine Pending Results Patient Have Any Pending Studies at Discharge: No Discharge Instructions Given to Patient (Per Discharging Provider) Continue taking the salt tablets until seen by Nephrology. Please check a BMP in 1 week for renal function and to check sodium level. Please HOLD lasix and spironolactone for now, but you can continue on your losartan. Total Time Total Time Spent Total Time Spent (In Minutes): 35 min Coding Level of Care Code 24215 INP/OBS DISCH >30 MIN Diagnoses Osteomyelitis of left foot M86.9 Type 1 diabetes E10.9 Chronic kidney disease N18.9 Chronic kidney disease stage: stage 3 (moderate) Anemia D64.9 Vision changes H53.9
[2023-04-19] MEDS ORDERED: SODIUM CHLORIDE 1 GM TABLET PO SCH (09:00)
== END 2023-04-18 17:34 | DRG 240 ==
LOC: ED 12:16 → 3W 12:16 → SUATTDRO 17:48 → 3W 21:27 → SUATTDRO 04-09 12:28 → 3W 04-10 08:03

== ENCOUNTER 2023-06-04 14:20 | Inpatient (IN) ==
--- NOTE | 2023-06-04 14:52 | ED Triage Note ---
Date of Service June 04, 2023 Provider in Triage Author: Nette Saleem History of Present Illness This patient was briefly evaluated while in triage. An abbreviated physical exam was performed. This patient is a 77-year-old Female who presents to the ED for evaluation of wound dehiscence. She had a left BKA recently and states that 3 days ago, the wound popped open and has been looking infected. She denies fevers. Physical Exam VITALS: Vitals are noted on the nurse's note and reviewed by myself. GENERAL: This is a 77-year-old female, in no acute distress, well-developed well-nourished. SKIN: Dressing in place over the left lower leg. NEURO: Patient was alert and oriented to person place and time. Initial orders for labs and / or imaging were placed and patient was placed in the waiting area until a bed is available. Please see further documentation for the full ED course.
--- NOTE | 2023-06-04 16:21 | XRay Report ---
XR tibia fibula LT 2V HISTORY: 77 years-old Female Left BKA, infection acute pain in the left lower leg COMPARISON: None TECHNIQUE: 2 views of the left tibia and fibula FINDINGS: Arterial calcifications. Surgical talita. Demineralized appearance of the bones with mild osteoarthr itis of the knee. Below the knee amputation. Soft tissue swelling at the amputation stump. Mild perio steal thickening of the distal fibula is noted laterally. No acute osseous erosions. IMPRESSION: 1. Soft tissue swelling without acute fracture, dislocation or osseous erosion identified. 2. Below the knee amputation with mild nonspecific periosteal thickening of the distal fibular latera l cortex. ACT 112: Negative or not required by law. The above report was generated using voice recognition software. It may contain grammatical, syntax o r spelling errors. Electronically signed by: Milton Bell M.D. 06/04/2023 4:19 PM
[2023-06-04 16:44] LABS: Basophils # (auto) 0.02 K/uL (0.00-0.20); Basophils % (auto) 0.2 %; Eosinophils # (auto) 0.27 K/uL (0.00-0.50); Hematocrit (blood only) 34.1 % (37.0-47.0); Hemoglobin 11.3 g/dl (12.0-16.0); Immature Granulocytes # (auto) 0.03 K/uL (0.01-0.20); Immature Granulocytes % (auto) 0.3 %; Lymphocytes # (auto) 2.46 K/uL (1.20-3.40); Lymphocytes % (auto) 27.1 %; Mean Corpuscular Hemoglobin 29.8 pg (25.0-34.0); Mean Corpuscular Hgb Conc 33.1 g/dL (32.0-36.0); Mean Platelet Volume 11.2 fL (9.4-12.4); Monocytes % (auto) 5.5 %; Neutrophils % (auto) 63.9 %; Platelet Count 226 K/uL (130-400); RDW Coefficient of Variation 15.6 % (11.5-14.5); RDW Standard Deviation 51.3 fL (36.4-46.3); Red Blood Count 3.79 M/uL (4.20-5.40); White Blood Count 9.08 K/ul (4.8-10.8)
[2023-06-04 17:02] LABS: Alanine Aminotransferase 15 U/L (7-52); Albumin Globulin Ratio 1.3 (0.9-2); Albumin Level 3.8 gm/dl (3.4-5.0); Alkaline Phosphatase 221 U/L (34-104); Anion Gap 9 (3-11); Aspartate Aminotransferase 23 U/L (13-39); BUN Creatinine Ratio 22.5 (10-20); Bilirubin,Total 0.4 mg/dl (0.2-1.0); Blood Urea Nitrogen 23 mg/dl (6-23); Calcium 8.9 mg/dl (8.6-10.3); Carbon Dioxide 24 mmol/L (21-32); Chloride 105 mmol/L (98-107); Est GFR (African American) 61.9 ml/min; Est GFR (Non-African American) 53.4 ml/min; Glucose 202 mg/dl (70-99(Fasting)); Sodium 138 mmol/L (136-145); Total Protein 6.8 gm/dl (6.0-8.3)
[2023-06-04] MEDS ORDERED: cefTRIAXone SODIUM 2,000 MG/50 ML BAG IV STA (18:22)
[2023-06-04] MEDS ORDERED: VANCOMYCIN HCL 1,000 MG in SODIUM CHLORIDE 0.9% 500 ML IV ONE (18:22)
[2023-06-04] MEDS ORDERED: VANCOMYCIN CONSULT ACTIVE PRN (18:22)
--- NOTE | 2023-06-04 18:25 | Emergency Department Note ---
Impression & Plan Dehiscence of amputation stump, Anemia, Hyperglycemia ED Provider Note NAME: BARRON BOND AGE: 77 SEX: F : 1945 ARRIVES VIA: Walk-In INFORMANT: Patient ED PROVIDER(S): Hesham Brito DO CHIEF COMPLAINT: LLE redness HPI: Patient is a 77-year-old female with a past medical history of peripheral artery disease to lower extremity and amputations who presents to the ER for dehiscence of her left BKA. She saw Dr. Umana today and was referred in for admission in OR. Patient notes that started to dehisce last Saturday. She noticed some redness around it. Surgery was done back in April. She denies any headache or change in vision. No chest pain or shortness of breath. No nausea vomiting or diarrhea. No other exacerbating or remitting factors. ADDITIONAL HISTORY OBTAINED: Per HPI Chronic Medical/Social Conditions Affecting Care: Per HPI PAST MEDICAL HISTORY:See Below PAST SURGICAL HISTORY:See Below FAMILY HISTORY:See Below SOCIAL HISTORY:See Below HOME MEDICATIONS:See Below ALLERGIES:See Below VITALS:See Below PHYSICAL EXAMINATION: GENERAL: Sitting up in bed, alert, well appearing, well nourished, no distress, non-toxic EYE EXAM: normal conjunctiva. OROPHARYNX: no exudate, no erythema, lips, buccal mucosa, and tongue normal and mucous membranes are moist NECK: supple, no nuchal rigidity, no adenopathy, non-tender LUNGS: Clear to auscultation. Normal chest wall mechanics HEART: no murmurs, S1 normal and S2 normal ABDOMEN: abdomen soft, non-tender, normo-active bowel sounds, no masses, no rebound or guarding. UPPER EXTREMITIES: upper extremities are grossly normal. LOWER EXTREMITIES: Left lower extremity BKA with dehiscence on the anterior aspect and surrounding erythema. No obvious drainage. NEURO EXAM: Normal sensorium, cranial nerves II-XII grossly intact, normal speech, no gross weakness of arms, no weakness of legs. MEDICAL DECISION MAKING: Patient is a 77-year-old female who presents ER for above-stated complaint. IV was established blood work was obtained. Labs show no significant leukocytosis. Mild anemia 11.3. BMP with slightly elevated glucose at 202. Medically slightly low at 1.5. Patient was given IV Rocephin and vancomycin. Updated bedside. Discussed with the hospitalist for further evaluation management treatment. Consults/Care Managements Discussions: Per MDM Triage Nursing notes reviewed. Limited review of prior medical records performed Vital Signs: reviewed and remarkable for HTN Differential diagnosis: Differential diagnosis includes etiologies such as sepsis, UTI, pneumonia, metabolic, electrolyte abnormalities, cardiac sources, intracerebral event, toxicologic, neurological, as well as others were entertained. ER treatment provided: See below Diagnostics interpreted by me include EKG and cardiac monitoring as listed below: -Cardiac Monitoring: An order was placed for continuous cardiac monitoring. The monitor shows a rate of 65 with sinus rhythm. -ECG: none -Laboratory studies:Interpreted by me as stated above in MDM and shown below. Imaging studies: Xrays: As interpreted by me:none CTs show: none Procedures:none Critical Care: None Past Med/Surg History Medical History (Updated 06/04/23 @ 23:58 by Hesham Brito DO) Hypothyroidism Hypertension Hyponatremia Acute kidney injury PAD (peripheral artery disease) Wound infection left foot wound - nonhealing and currently wearing a wound vac (03/2023) Sepsis treated inpatient 02/2023 [facility] Dehiscence of amputation stump of left lower extremity reason for upcoming procedure History of COVID-19 12/20/22 [facility] - no symptoms tested positive 02/15/23 at [facility], was told it was related to testing positive within 90 days back in December 2022 Diabetic foot ulcer Left heel with debridement in the past Constipation TMJ derangement no current issues Cerebral aneurysm "very small"/under suveillance S/P angiogram of extremity left leg Conductive hearing loss of right ear Vertigo hx Diabetes IDDM Below-knee amputation of right lower extremity Osteoporosis Scleroderma CREST syndrome follows with PCP Chronic GERD Benign essential hypertension Raynauds syndrome Hx of renal cell cancer R renal (2012) s/p right nephrectomy, no chemo/xrt Anemia Chronic History of MRSA infection 04/2017 (right foot - has since been amputated) > "no active infection" Carotid artery stenosis s/p Left CEA (2002), right CEA (1995) Vascular monitoring per recent visit 03/2023 Renal artery stenosis Right renal stent attempted 2010, s/p right nephrectomy 2012 Diverticular disease GERD (gastroesophageal reflux disease) Chronic kidney disease Stage III Deep vein thrombosis RLE DVT dx 2017; "chronic" PCP/vascular monitoring Hyperlipidemia Asthma Surgical History Status post amputation of left foot through metatarsal bone Status post below knee amputation of right lower extremity History of transmetatarsal amputation of left foot History of esophagogastroduodenoscopy (EGD) S/P amputation right Below the knee amputation History of oophorectomy B/L OVARIES History of carpal tunnel surgery RIGHT HAND, TRIGGER RIGHT FINGER History of left breast biopsy 1997 (benign) H/O sinus surgery History of angioplasty MULTIPLE OF LE'S WITH STENTS TO LOWER EXTREMITIES PLACED History of procedure for peripheral vascular disease LEFT POPLITEAL S/P PERONEAL ARTERY BYPASS 2012; RLE ANGIO WITH INTERVENTION 06/2017 H/O carotid endarterectomy LEFT (2002), RIGHT (1995) History of atherectomy LEFT (02/2017) History of amputation of lesser toe of right foot MULTIPLE TOE AMPUTATIONS/I&D (ALL RT TOES; all the left toes have been amputated) History of cardiac cath 2011= NO STENTS ([facility]) Nausea and vomiting after administration of anesthetic agent Hx of lumpectomy LEFT BREAST (BENIGN) History of hysterectomy MERYL W/ BSO History of nephrectomy RIGHT (2012) renal cell carcinoma History of appendectomy History of cholecystectomy History of colonoscopy History of endoscopic sinus surgery History of cataract surgery RT/LEFT History of tonsillectomy Family History Father Family hx of colon cancer Family history of diabetes mellitus Mother Lung cancer Stroke Unknown Rheumatoid arthritis Other No family history of adverse response to anesthesia No family history of bleeding disorder Social History Smoking Status: Never smoker Second Hand Exposure: No; Do You Dip or Chew Tobacco: No; Hx Alcohol Use: No Hx Substance Use: No Preferred Language: [place]ican Communication Ability: Effective Visual Impairment: No Limitations Hearing Ability: Normal Slate Mixer Required: No Beliefs That Will Affect Care: None marital status: Current Living Situation: Spouse Current Living Situation Comment: lives in 1 story home with . home nursing 3x/week current occupational status: retired How many Children do You have: 0 How many Children do You have Comment: able to assist with care as needed. Feels Safe at Home: Yes Diet: diabetic during the past year weight has: decreased > 10 lbs Seatbelt Use: always Do you think of yourself as: straight/heterosexual Gender Identity: Female Assistive Devices: Cane, Walker and Wheelchair Allergies Allergies Allergy/AdvReac Type Severity Reaction Status Date / Time enflurane Allergy Severe nausea, Verified 06/04/23 18:50 jaundiced Iodinated Contrast Media Allergy Intermediate Hives- IVP Verified 06/04/23 18:50 dye CHECO Inhibitors Allergy Mild hives Verified 06/04/23 18:50 nickel Allergy Mild Redness, Verified 06/04/23 18:50 itching liraglutide [From Victoza] AdvReac Severe Severe Verified 06/04/23 18:50 nausea gabapentin AdvReac Intermediate Confusion Verified 06/04/23 18:50 Home Meds Home Medications Medication Instructions Recorded Confirmed cholecalciferol (vitamin D3) 25 1,000 unit PO HS 06/19/22 06/04/23 mcg (1,000 unit) capsule (Vitamin D3) mometasone-formoterol HFA 200 2 puff inhalation BID PRN 12/20/22 06/04/23 mcg-5 mcg/actuation aerosol Shortness Of Breath inhaler (Dulera) docusate sodium 100 mg capsule 100 mg PO BID 02/05/23 06/04/23 (Dulcolax Stool Softener (docusate)) ferrous gluconate 324 mg (37.5 mg 324 mg PO QAM 03/20/23 06/04/23 iron) tablet losartan 100 mg tablet 100 mg PO QAM 03/20/23 06/04/23 omeprazole 20 mg capsule,delayed 20 mg PO HS 03/20/23 06/04/23 release spironolactone 50 mg tablet 50 mg PO QAM 03/20/23 06/04/23 levothyroxine 100 mcg tablet See Rx Instructions .Route .COMPLEX 04/08/23 06/04/23 nystatin 100,000 unit/gram topical 1 applic topical BID PRN Skin 06/04/23 06/04/23 powder Irritation Previous Rx's Medication Instructions Recorded glucagon HCl 1 mg solution for 1 mg subcut Q20M PRN hypoglycemia 06/29/21 injection (Glucagon (HCl) #1 ea Emergency Kit) atorvastatin 80 mg tablet 80 mg PO QPM #90 tabs 02/23/22 clopidogrel 75 mg tablet (Plavix) 75 mg PO QAM #90 tabs 07/12/22 carvedilol 25 mg tablet (Coreg) 25 mg PO BID #180 tabs 01/23/23 acetaminophen 500 mg tablet 1,000 mg (2 x 500 mg) PO Q8H PRN 02/15/23 (Tylenol Extra Strength) fever or pain #30 tabs insulin lispro 100 unit/mL 1 sliding scale dose subcut ACHS 02/15/23 subcutaneous solution (Humalog #10 mL U-100 Insulin) nifedipine 60 mg tablet,extended 60 mg PO HS #90 tabs 03/04/23 release insulin detemir U-100 100 unit/mL 6 unit (0.06 mL) subcut HS #1 mL 04/18/23 subcutaneous solution (Levemir U-100 Insulin) oxycodone 5 mg tablet 5 mg PO Q6H PRN moderate-severe 06/04/23 pain #120 tabs Results & Data (ED) Vital Signs Vital Signs - 24 hr 06/04/23 14:49 Temperature 36.5 C Temperature Source Temporal Artery Scan Pulse Rate 62 Pulse Rhythm Regular Respiratory Rate 20 Respiratory Effort / Characteristics Non-Labored Spontaneous Respiratory Depth Normal Blood Pressure 200/77 H Blood Pressure Mean 118 Pulse Oximetry 98 Oxygen Delivery Method Room Air Sepsis Recent Fever Within 48 Hours No Sepsis New/Unexplained Change in Mental Status No Sepsis Action Taken by Nursing No Action Required Laboratory Data 06/04/23 16:24 06/04/23 16:24 Lab Results 06/04/23 Range/Units 16:24 WBC 9.08 (4.8-10.8) K/ul RBC 3.79 L (4.20-5.40) M/uL Hgb 11.3 L (12.0-16.0) g/dl Hct 34.1 L (37.0-47.0) % MCV 90.0 (80.0-100.0) fL MCH 29.8 (25.0-34.0) pg MCHC 33.1 (32.0-36.0) g/dL RDW Std Deviation 51.3 H (36.4-46.3) fL RDW Coeff of Pepper 15.6 H (11.5-14.5) % Plt Count 226 (130-400) K/uL MPV 11.2 (9.4-12.4) fL Immature Gran % (Auto) 0.3 % Neut % (Auto) 63.9 % Lymph % (Auto) 27.1 % [place] % (Auto) 5.5 % Eos % (Auto) 3.0 % Baso % (Auto) 0.2 % Neut # (Auto) 5.80 (1.40-6.50) K/uL Lymph # (Auto) 2.46 (1.20-3.40) K/uL [place] # (Auto) 0.50 (0.11-0.59) K/uL Eos # (Auto) 0.27 (0.00-0.50) K/uL Baso # (Auto) 0.02 (0.00-0.20) K/uL Immature Gran # (Auto) 0.03 (0.01-0.20) K/uL ESR 50 H (0-30) mm/hr Sodium 138 (136-145) mmol/L Potassium 4.0 (3.5-5.1) mmol/L Chloride 105 (98-107) mmol/L Carbon Dioxide 24 (21-32) mmol/L Anion Gap 9 (3-11) BUN 23 (6-23) mg/dl Creatinine 1.02 (0.6-1.2) mg/dl Est Cr Clr Drug Dosing Not Reportable Est GFR ( Amer) 61.9 ml/min Est GFR (Non-Af Amer) 53.4 ml/min BUN/Creatinine Ratio 22.5 H (10-20) Glucose 202 H (70-99(Fasting)) mg/dl Calcium 8.9 (8.6-10.3) mg/dl Magnesium 1.5 L (1.7-2.4) mg/dl Total Bilirubin 0.4 (0.2-1.0) mg/dl AST 23 (13-39) U/L ALT 15 (7-52) U/L Alkaline Phosphatase 221 H (34-104) U/L C-Reactive Protein 0.91 H (0-0.5) mg/dl Total Protein 6.8 (6.0-8.3) gm/dl Albumin 3.8 (3.4-5.0) gm/dl Globulin 3.0 (2.5-4.0) gm/dl Albumin/Globulin Ratio 1.3 (0.9-2) Administered Medications Docusate Sodium (Docusate Sodium 100 Mg Cap) 100 mg PO BID ANANTH Stop: 07/04/23 20:59 Last Admin: 06/04/23 21:38 Dose: 100 mg Documented By: FARRUKH Heparin Sodium (Porcine) (Heparin Sod 5,000 Unit/0.5 Ml Vial) 5,000 units SQ Q12 ANANTH Stop: 07/04/23 20:59 Last Admin: 06/04/23 21:40 Dose: 5,000 units Documented By: FARRUKH Insulin Aspart (Insulin Aspart Per Unit Charge) 0 units SC ACHS [facility] Stop: 07/04/23 20:59 Last Admin: 06/04/23 22:08 Dose: 3 units Documented By: FARRUKH Co-signed By: TK Insulin Glargine (Lantus Per Unit Charge) 6 units SQ HS [facility] Stop: 07/04/23 20:59 Last Admin: 06/04/23 22:09 Dose: 6 units Documented By: FARRUKH Co-signed By: TK Oxycodone HCl (Oxycodone Hcl Ir 5 Mg Tab (Immediate Release)) 5 mg PO Q6H PRN PRN Reason: moderate-severe pain Stop: 06/18/23 20:40 Last Admin: 06/04/23 22:15 Dose: 5 mg Documented By: FARRUKH Pantoprazole Sodium (Pantoprazole 40 Mg Tab) 40 mg PO [facility] Stop: 07/04/23 20:59 Last Admin: 06/04/23 21:39 Dose: 40 mg Documented By: FARRUKH Vitamin D (Cholecalciferol 1,000 Units 25 Mcg Tab) 1,000 units PO HS [facility] Stop: 07/04/23 20:59 Last Admin: 06/04/23 21:39 Dose: 1,000 units Documented By: FARRUKH Discontinued Medications Acetaminophen (Acetaminophen 500 Mg Tab) 1,000 mg PO NOW STA Stop: 06/04/23 19:14 Last Admin: 06/04/23 20:01 Dose: 1,000 mg Documented By: TK Carvedilol (Carvedilol 25 Mg Tab) 25 mg PO NOW STA Stop: 06/04/23 20:04 Last Admin: 06/04/23 20:29 Dose: 25 mg Documented By: TK Ceftriaxone Sodium (Rocephin) 2,000 mg in 50 mls @ 100 mls/hr IV NOW STA Stop: 06/04/23 18:51 Last Infusion: 06/04/23 21:50 Dose: Infused Documented By: Admin: 06/04/23 21:18 Dose: 100 mls/hr Documented By: TK Vancomycin HCl 1,000 mg/ (Sodium Chloride) 520 mls @ 200 mls/hr IV NOW ONE Stop: 06/04/23 20:57 Last Infusion: 06/04/23 21:15 Dose: Infused Documented By: Admin: 06/04/23 19:33 Dose: 200 mls/hr Documented By: QUANG Piperacillin Sod/Tazobactam (Sod 4.5 gm/ Dextrose) 100 mls @ 200 mls/hr IV ONE STA; Protocol Stop: 06/04/23 21:19 Last Infusion: 06/04/23 22:16 Dose: Infused Documented By: Admin: 06/04/23 21:45 Dose: 200 mls/hr Documented By: FARRUKH Nifedipine (Nifedipine Extended Rel 30 Mg Tabcr) 60 mg PO NOW STA Stop: 06/04/23 20:04 Last Admin: 06/04/23 20:29 Dose: 60 mg Documented By: TK Imaging Data Radiologist's Impression: Tibia/Fibula X-Ray 06/04/23 14:53 XR tibia fibula LT 2V HISTORY: 77 years-old Female Left BKA, infection acute pain in the left lower leg COMPARISON: None TECHNIQUE: 2 views of the left tibia and fibula FINDINGS: Arterial calcifications. Surgical talita. Demineralized appearance of the bones with mild osteoarthritis of the knee. Below the knee amputation. Soft tissue swelling at the amputation stump. Mild periosteal thickening of the distal fibula is noted laterally. No acute osseous erosions. IMPRESSION: 1. Soft tissue swelling without acute fracture, dislocation or osseous erosion identified. 2. Below the knee amputation with mild nonspecific periosteal thickening of the distal fibular lateral cortex. ACT 112: Negative or not required by law. The above report was generated using voice recognition software. It may contain grammatical, syntax or spelling errors. Electronically signed by: Milton Bell M.D. 06/04/2023 4:19 PM Discharge Plan Visit Data Chief Complaint: Wound Stated Complaint: INCISION POPPING OPEN FROM LEG AMPUTATION ED Provider: Hesham Brito Discharge Problem: Dehiscence of amputation stump, Anemia, Hyperglycemia Patient Disposition: Admitted As Inpatient Discharge Instructions Interventions: ED Discharge Assessment Last Done: 06/04/23 20:42 Discharge Problem: Anemia Qualifiers: Anemia type: unspecified type Qualified Code(s): D64.9 - Anemia, unspecified
--- NOTE | 2023-06-04 18:29 | History & Physical Report ---
Date of Service June 04, 2023 Assessment & Plan (1) Wound dehiscence: Plan: S/p LLE BKA on 04/11/[address] Umana Patient was sent in by Dr. Umana on 06/04/23 to receive antibiotics for wound site infection; plan is to do a revision in the OR on Wednesday 06/07 Vascular surgery consulted No leukocytosis; afebrile Hx of osteomyelitis Patient received vancomycin and Rocephin in the ED; no blood cultures prior to antibiotics being admitted MRSA swab ordered, pending Wound culture ordered, pending Will switch to Zosyn 4.5g IV q8h for Pseudomonas/anaerobic coverage; patient is diabetic We will also switch to daptomycin 4mg/kg IV q24h; hold atorvastatin Left tibia/fibula x-ray reveals no acute fracture, dislocation, or osseous erosion CRP, ESR, procalcitonin ordered, pending Wound care nurse consulted Redress wound daily Acetaminophen as needed for pain/fever Oxycodone 5 mg p.o. q6h as needed for breakthrough pain (rated 8/10 to 10/10) A.m. CBC, BMP, CRP, ESR (2) Chronic kidney disease: Plan: BUN 23, creatinine 1.02 (baseline 0.9), EGFR 53.4 Avoid nephrotoxic agents Monitor daily BMP (3) Type 1 diabetes: Plan: Last A1c was 7.7% on 04/01/2023 Glucose 202 on arrival Patient normally takes Levemir 6u HS Lantus 6u HS while inpatient SSI; target BSG range 110-150mg/dL, CF 70, carb ratio 25 BSG ACHS T1DM diet Pharmacy glycemic consult Adjust regimen as needed AM A1c (4) Hypertension: Plan: Continue losartan, nifedipine, and carvedilol (5) PAD (peripheral artery disease): Plan: Continue clopidogrel (6) Hypothyroidism: Plan: Continue levothyroxine (7) Status post below-knee amputation of left lower extremity: (8) Below-knee amputation of right lower extremity: Plan Disposition: Admit to MedSurg DNR/DNI T1DM diet VTE PPx: Heparin 5000u SQ q12h History of Present Illness Chief Complaint: Wound dehiscence Primary Care Provider: Agustín Jarvis MD Trista is a pleasant 77yo female with PMH of T1DM, RLE BKA, s/p recent LLE BKA on 04/11/23, PAD, HTN, and hypothyroidism. She presented for wound dehiscence of her LLE BKA on the morning of 06/04. She reports that her left lower extremity pain started on Thursday 05/31 at the wound site. She describes it as an achy, intermittent pain, with occasional sharp stabbing. Rated 8/10 at present. She has been taking Tylenol (500 mg) x 2 tablets BID, as well as oxycodone (5 mg) 2- 3 tabs at night, which helps. No radiation up the leg. Moving the leg somewhat alleviates her pain. The patient saw Dr. Umana on 06/04, who requested that the patient go to the ED; the patient also reports that Dr. Uamna did mention doing a revision this Wednesday 06/07. The patient denies smoking, alcohol use. She is hypertensive at 200/77 at time of admission; vitals otherwise stable. ED course: Vancomycin 1000 mg IV Rocephin 2000 mg IV ROS: Patient endorses headache, left lower extremity pain at the incision site, and vomiting/diarrhea on Saturday (resolved). Patient denies fever, chills, night sweats, dizziness, lightheadedness, CP, pleuritic CP, SOB, abdominal pain, nausea, or numbness or tingling in the leg. Allergies Allergy/AdvReac Type Severity Reaction Status Date / Time enflurane Allergy Severe nausea, Verified 06/04/23 18:50 jaundiced Iodinated Contrast Media Allergy Intermediate Hives- IVP Verified 06/04/23 18:50 dye CHECO Inhibitors Allergy Mild hives Verified 06/04/23 18:50 nickel Allergy Mild Redness, Verified 06/04/23 18:50 itching liraglutide [From Victoza] AdvReac Severe Severe Verified 06/04/23 18:50 nausea gabapentin AdvReac Intermediate Confusion Verified 06/04/23 18:50 Home Medications Medication Instructions Recorded Confirmed Type glucagon HCl 1 mg solution for 1 mg subcut Q20M PRN hypoglycemia 06/29/21 06/04/23 Rx injection (Glucagon (HCl) #1 ea Emergency Kit) atorvastatin 80 mg tablet 80 mg PO QPM #90 tabs 02/23/22 06/04/23 Rx cholecalciferol (vitamin D3) 25 1,000 unit PO HS 06/19/22 06/04/23 History mcg (1,000 unit) capsule (Vitamin D3) clopidogrel 75 mg tablet (Plavix) 75 mg PO QAM #90 tabs 07/12/22 06/04/23 Rx mometasone-formoterol HFA 200 2 puff inhalation BID PRN 12/20/22 06/04/23 History mcg-5 mcg/actuation aerosol Shortness Of Breath inhaler (Dulera) carvedilol 25 mg tablet (Coreg) 25 mg PO BID #180 tabs 01/23/23 06/04/23 Rx docusate sodium 100 mg capsule 100 mg PO BID 02/05/23 06/04/23 History (Dulcolax Stool Softener (docusate)) acetaminophen 500 mg tablet 1,000 mg (2 x 500 mg) PO Q8H PRN 02/15/23 06/04/23 Rx (Tylenol Extra Strength) fever or pain #30 tabs insulin lispro 100 unit/mL 1 sliding scale dose subcut ACHS 02/15/23 06/04/23 Rx subcutaneous solution (Humalog #10 mL U-100 Insulin) nifedipine 60 mg tablet,extended 60 mg PO HS #90 tabs 03/04/23 06/04/23 Rx release ferrous gluconate 324 mg (37.5 mg 324 mg PO QAM 03/20/23 06/04/23 History iron) tablet losartan 100 mg tablet 100 mg PO QAM 03/20/23 06/04/23 History omeprazole 20 mg capsule,delayed 20 mg PO HS 03/20/23 06/04/23 History release spironolactone 50 mg tablet 50 mg PO QAM 03/20/23 06/04/23 History levothyroxine 100 mcg tablet See Rx Instructions .Route .COMPLEX 04/08/23 06/04/23 History insulin detemir U-100 100 unit/mL 6 unit (0.06 mL) subcut HS #1 mL 04/18/23 06/04/23 Rx subcutaneous solution (Levemir U-100 Insulin) nystatin 100,000 unit/gram topical 1 applic topical BID PRN Skin 06/04/23 06/04/23 History powder Irritation oxycodone 5 mg tablet 5 mg PO Q6H PRN moderate-severe 06/04/23 06/04/23 Rx pain #120 tabs Past Med/Surg History Medical History Hypothyroidism Hypertension Hyponatremia Acute kidney injury PAD (peripheral artery disease) Wound infection left foot wound - nonhealing and currently wearing a wound vac (03/2023) Sepsis treated inpatient 02/2023 [facility] Dehiscence of amputation stump of left lower extremity reason for upcoming procedure History of COVID-19 12/20/22 [facility] - no symptoms tested positive 02/15/23 at [facility], was told it was related to testing positive within 90 days back in December 2022 Diabetic foot ulcer Left heel with debridement in the past Constipation TMJ derangement no current issues Cerebral aneurysm "very small"/under suveillance S/P angiogram of extremity left leg Conductive hearing loss of right ear Vertigo hx Diabetes IDDM Below-knee amputation of right lower extremity Osteoporosis Scleroderma CREST syndrome follows with PCP Chronic GERD Benign essential hypertension Raynauds syndrome Hx of renal cell cancer R renal (2012) s/p right nephrectomy, no chemo/xrt Anemia Chronic History of MRSA infection 04/2017 (right foot - has since been amputated) > "no active infection" Carotid artery stenosis s/p Left CEA (2002), right CEA (1995) Vascular monitoring per recent visit 03/2023 Renal artery stenosis Right renal stent attempted 2010, s/p right nephrectomy 2012 Diverticular disease GERD (gastroesophageal reflux disease) Chronic kidney disease Stage III Deep vein thrombosis RLE DVT dx 2017; "chronic" PCP/vascular monitoring Hyperlipidemia Asthma Surgical History Status post amputation of left foot through metatarsal bone Status post below knee amputation of right lower extremity History of transmetatarsal amputation of left foot History of esophagogastroduodenoscopy (EGD) S/P amputation right Below the knee amputation History of oophorectomy B/L OVARIES History of carpal tunnel surgery RIGHT HAND, TRIGGER RIGHT FINGER History of left breast biopsy 1997 (benign) H/O sinus surgery History of angioplasty MULTIPLE OF LE'S WITH STENTS TO LOWER EXTREMITIES PLACED History of procedure for peripheral vascular disease LEFT POPLITEAL S/P PERONEAL ARTERY BYPASS 2012; RLE ANGIO WITH INTERVENTION 06/2017 H/O carotid endarterectomy LEFT (2002), RIGHT (1995) History of atherectomy LEFT (02/2017) History of amputation of lesser toe of right foot MULTIPLE TOE AMPUTATIONS/I&D (ALL RT TOES; all the left toes have been amputated) History of cardiac cath 2011= NO STENTS ([facility]) Nausea and vomiting after administration of anesthetic agent Hx of lumpectomy LEFT BREAST (BENIGN) History of hysterectomy MERYL W/ BSO History of nephrectomy RIGHT (2012) renal cell carcinoma History of appendectomy History of cholecystectomy History of colonoscopy History of endoscopic sinus surgery History of cataract surgery RT/LEFT History of tonsillectomy Family History Father Family hx of colon cancer Family history of diabetes mellitus Mother Lung cancer Stroke Unknown Rheumatoid arthritis Other No family history of adverse response to anesthesia No family history of bleeding disorder Social History Smoking Status: Never smoker Second Hand Exposure: No; Do You Dip or Chew Tobacco: No; Hx Alcohol Use: No Hx Substance Use: No Preferred Language: Albanian Communication Ability: Effective Visual Impairment: No Limitations Hearing Ability: Normal Insurance And Financial Services Agent Required: No Beliefs That Will Affect Care: None marital status: Current Living Situation: Spouse Current Living Situation Comment: lives in 1 story home with . home nursing 3x/week current occupational status: retired How many Children do You have: 0 How many Children do You have Comment: able to assist with care as needed. Other Information That Helps Us Care for You: No Feels Safe at Home: Yes Safety Concerns: Feels Safe At This Time Diet: diabetic during the past year weight has: decreased > 10 lbs Seatbelt Use: always Do you think of yourself as: straight/heterosexual Gender Identity: Female Assistive Devices: Walker and Wheelchair Review of Systems 2 Review of Systems: See HPI above Physical Exam 2 Physical Exam: General: no acute distress; pleasant affect; non-toxic appearing; well- nourished; cooperative HEENT: normocephalic, atraumatic; no scleral icterus; moist mucus membrane; vision and hearing grossly intact Neck: supple; no lymphadenopathy; trachea midline Skin: warm, dry without signs of tenting; no cyanosis; no rashes, bruising, lesions, or erythema noted CV: chest wall NTP; RRR; S1/S2 normal; no murmurs/rubs/gallops; pulses intact and symmetric at radial, DP, and PT Lungs: no acute respiratory distress; symmetrical chest wall expansion; clear breath sounds across all lung day w/o adventitious sounds; no wheezing ABD: Soft, NTP; BS present; no rebound/guarding; no distention LLE: Malodorous; wound site with purulent drainage, erythema, eschar around the edges (see photo below) RLE: BKA; without signs of erythema, swelling, or tenderness MSK: no tics or fasciculations Neuro: A&Ox3; normal mood and affect; fluent speech; no focal deficits; sensation grossly intact in the thighs B/L Results & Data Results & Data Vital Signs (Past 12 Hours) Vital Signs Temp Pulse Resp BP Pulse Ox O2 Del Method 06/04/23 14:49 36.5 C 62 20 200/77 H 98 Room Air Laboratory Results Abnormal lab results 06/04/23 Range/Units 16:24 RBC 3.79 L (4.20-5.40) M/uL Hgb 11.3 L (12.0-16.0) g/dl Hct 34.1 L (37.0-47.0) % RDW Std Deviation 51.3 H (36.4-46.3) fL RDW Coeff of Pepper 15.6 H (11.5-14.5) % BUN/Creatinine Ratio 22.5 H (10-20) Glucose 202 H (70-99(Fasting)) mg/dl Alkaline Phosphatase 221 H (34-104) U/L Diagnostic Findings Tibia/Fibula X-Ray 06/04/23 14:53 XR tibia fibula LT 2V HISTORY: 77 years-old Female Left BKA, infection acute pain in the left lower leg COMPARISON: None TECHNIQUE: 2 views of the left tibia and fibula FINDINGS: Arterial calcifications. Surgical talita. Demineralized appearance of the bones with mild osteoarthritis of the knee. Below the knee amputation. Soft tissue swelling at the amputation stump. Mild periosteal thickening of the distal fibula is noted laterally. No acute osseous erosions. IMPRESSION: 1. Soft tissue swelling without acute fracture, dislocation or osseous erosion identified. 2. Below the knee amputation with mild nonspecific periosteal thickening of the distal fibular lateral cortex. ACT 112: Negative or not required by law. The above report was generated using voice recognition software. It may contain grammatical, syntax or spelling errors. Electronically signed by: Milton Bell M.D. 06/04/2023 4:19 PM Code Status & VTE Plan Code Status DNR/DNI VTE Prophylaxis Plan VTE Prophylaxis will be ordered: Yes Supervising Physician Co-Signing Physician Notes During face to face encounter, I obtained a brief physical examination, discussed history of present illness in the presence of AKBAR Garcia and patient. I discussed plan of care with patient and APC Gonzalo I reviewed above note and agree with it except for the following: Patient will be admitted to [facility] on IV antibiotics for possible osteomyelitis, will consult vascular surgery. PG Care Time/CCT Total # of Minutes Spent Total Time Spent with Patient: Total time spent is greater than 50% in coordination of care (as documented) at patient's floor/unit and/or counseling patient: C[place] [address] INT INP/OBS CARE 2/55MIN Patient Type Established Medical Decision Making Moderate Complexity Diagnoses Wound dehiscence T81.30XA Chronic kidney disease N18.9 Chronic kidney disease stage: stage 3 (moderate) Type 1 diabetes E10.9 Hypertension I10 PAD (peripheral artery disease) I73.9 Hypothyroidism E03.9 Status post below-knee amputation of left lower extremity Z89.512 Below-knee amputation of right lower extremity S88.111A (2) Chronic kidney disease Chronic kidney disease stage: stage 3 (moderate)
[2023-06-04] MEDS ORDERED: ACETAMINOPHEN 500 MG TAB PO STA (19:13)
[2023-06-04] MEDS ORDERED: carvediloL 25 MG TAB PO STA (20:03)
[2023-06-04] MEDS ORDERED: NIFEdipine EXTENDED REL 30 MG TABCR PO STA (20:03)
[2023-06-04 20:38] LABS: C Reactive Protein 0.91 mg/dl (0-0.5); Magnesium 1.5 mg/dl (1.7-2.4)
[2023-06-04] MEDS ORDERED: PHARMACY GLYCEMIC MGMT CONSULT PRN (20:41)
[2023-06-04] MEDS ORDERED: GLUCAGON FOR INJ 1 MG VIAL SQ PRN (20:41)
[2023-06-04] MEDS ORDERED: DEXTROSE 50% 50 ML SYRINGE IV PRN (20:41)
[2023-06-04] MEDS ORDERED: CARBOHYDRATES FOR HYPOGLYCEMIA PO PRN (20:41)
[2023-06-04] MEDS ORDERED: GLUCOSE 10 TAB/TUBE PO PRN (20:41)
[2023-06-04] MEDS ORDERED: GLUCOSE 40% GEL 15 GM TUBE PO PRN (20:41)
[2023-06-04] MEDS ORDERED: PIPERACILLIN/TAZOBACTAM 4.5 GM in DEXTROSE 5% MINI-B 100 ML IV STA (20:50)
[2023-06-04] MEDS: DOCUSATE SODIUM 100 MG CAP PO SCH (21:38)
[2023-06-04] MEDS: PANTOprazole 40 MG TAB PO SCH (21:39)
[2023-06-04] MEDS: CHOLECALCIFEROL 1,000 UNITS 25 MCG TAB PO SCH (21:39)
[2023-06-04] MEDS: HEPARIN SOD 5,000 UNIT/0.5 ML VIAL SQ SCH (21:40)
[2023-06-04] MEDS: INSULIN ASPART PER UNIT CHARGE SC SCH (22:08)
[2023-06-04] MEDS: LANTUS PER UNIT CHARGE SQ SCH (22:09)
[2023-06-04] MEDS: oxyCODONE HCL IR 5 MG TAB (IMMEDIATE RELEASE) PO PRN (22:15)
[2023-06-05] MEDS: PIPERACILLIN/TAZOBACTAM 4.5 GM in DEXTROSE 5% MINI-B 100 ML IV SCH ×3 (02:13→17:43)
[2023-06-05] MEDS: ACETAMINOPHEN 325 MG TAB PO PRN ×3 (04:11→14:21)
[2023-06-05] MEDS: oxyCODONE HCL IR 5 MG TAB (IMMEDIATE RELEASE) PO PRN ×3 (04:57→16:08)
[2023-06-05] MEDS: LEVOTHYROXINE SODIUM 100 MCG TABLET PO SCH (04:58)
[2023-06-05 07:28] LABS: Basophils # (auto) 0.01 K/uL (0.00-0.20); Basophils % (auto) 0.2 %; Eosinophils % (auto) 4.5 %; Hematocrit (blood only) 27.8 % (37.0-47.0); Hemoglobin 9.3 g/dl (12.0-16.0); Immature Granulocytes # (auto) 0.02 K/uL (0.01-0.20); Immature Granulocytes % (auto) 0.3 %; Lymphocytes # (auto) 2.55 K/uL (1.20-3.40); Lymphocytes % (auto) 38.6 %; Mean Corpuscular Hgb Conc 33.5 g/dL (32.0-36.0); Mean Corpuscular Volume 89.7 fL (80.0-100.0); Mean Platelet Volume 11.3 fL (9.4-12.4); Monocytes % (auto) 7.6 %; Neutrophils # (auto) 3.23 K/uL (1.40-6.50); Neutrophils % (auto) 48.8 %; Platelet Count 181 K/uL (130-400); RDW Coefficient of Variation 15.6 % (11.5-14.5); RDW Standard Deviation 50.9 fL (36.4-46.3); White Blood Count 6.61 K/ul (4.8-10.8)
[2023-06-05 07:57] LABS: BUN Creatinine Ratio 19.2 (10-20); C Reactive Protein 1.59 mg/dl (0-0.5); Calcium 7.7 mg/dl (8.6-10.3); Creatinine Clr Calc Pharmacy 41.4 ml/min; Est GFR (African American) 60.4 ml/min; Est GFR (Non-African American) 52.1 ml/min; Potassium 3.4 mmol/L (3.5-5.1)
[2023-06-05] MEDS: DAPTOmycin 250 MG in SYRINGE 0 ML IV SCH (08:17)
[2023-06-05] MEDS: carvediloL 25 MG TAB PO SCH ×2 (08:17→20:07)
[2023-06-05] MEDS: LOSARTAN POTASSIUM 50 MG TAB PO SCH (08:18)
[2023-06-05] MEDS: SPIRONOLACTONE 25 MG TAB PO SCH (08:18)
[2023-06-05] MEDS: FERROUS GLUCONATE 324 MG TAB PO SCH (08:19)
[2023-06-05] MEDS: CLOPIDOGREL BISULFATE 75 MG TAB PO SCH (08:19)
[2023-06-05] MEDS: DOCUSATE SODIUM 100 MG CAP PO SCH ×2 (08:20→20:09)
[2023-06-05] MEDS: FLUTICASONE/VILANTEROL 100/25MCG 14 PUFFS/INHALER INH SCH (09:07)
[2023-06-05] MEDS: INSULIN ASPART PER UNIT CHARGE SC SCH ×4 (09:12→20:55)
[2023-06-05 09:13] LABS: Estimated Average Glucose 160 mg/dl; Hemoglobin A1C 7.2 % (4.5-5.6)
[2023-06-05] MEDS: HEPARIN SOD 5,000 UNIT/0.5 ML VIAL SQ SCH ×2 (09:13→20:07)
--- NOTE | 2023-06-05 13:48 | Pharmacy Report ---
Pharmacy Glycemic Short Note 2 - Date of Service June 05, 2023 - Glycemic Short BSG Results (Last 24 hours): 06/04/23 06/04/23 06/05/23 16:24 21:55 00:31 Glucose 202 H POC Glucose 252 H 160 H 06/05/23 06/05/23 06/05/23 06:59 07:42 11:25 Glucose 86 POC Glucose 90 154 H OUTPATIENT ANTIDIABETIC REGIMEN: * Levemir 6 units, humalog achs ASSESSMENT: * 77 year old, type 1 diabetic presenting to ER for wound dehiscence of LLE BKA. Continues with IV antibiotics. Plan to continue home basal insulin dose. PLAN FOR INPATIENT GLYCEMIC CONTROL: * Hold outpatient oral diabetes medications * Basal insulin * Lantus 6 units hs * Bolus insulin * NovoLog per scale ACHS or Q6hrs while NPO * Goal Range: Low 110 mg/dL - High 150 mg/dL * Correction Factor: 35 mg/dL/unit * Nutritional / Prandial insulin per carb ratio of 1 unit per 15 grams CHO consumed
--- NOTE | 2023-06-05 14:03 | Consultation ---
Date of Consultation June 05, 2023 Assessment & Plan (1) Dehiscence of amputation stump: Pt with local wound infection and dehiscence. She will require surgical debridement in OR on SATURDAY, may require wound vac placement as well. Continue abx per medicine. Procedure, risks, benefits, and alternatives discussed with the pt by myself at Dr Umana's request. Pt expresses understanding and agreement to proceed. Patient was seen, examined, and chart reviewed. Agree with exam and treatment plan of the Vascular PA. History of Present Illness Reason for Consultation: LLE wound dehiscence Attending Physician: Sebastián Ramey History of Present Illness 77 yo f with multiple medical problems, including CKD, carotid stenosis, severe PAD, hx RLE BKA, HTN, DM, hypothyroidism, anemia, osteoporosis, admitted with LLE BKA wound dehiscence, seen in consultation today. Pt underwent LLE BKA almost [address] Umana, d/t nonhealing wounds and osteomyelitis of LLE foot. She presented for f/u visit and seemed to be healing as expected. Underwent staple removal about 3 weeks after her BKA. Called office yesterday d/t noticing increased pain, redness, and dehiscence over past 4 days. Admits drainage and foul odor as well. Was seen in office yesterday and sent to ED for eval, with plans to perform debridement of her BKA site in OR on SATURDAY, 06/07. Pt states her pain is improved with pain medication. No fever or nausea. No other new complaints. Allergies Allergy/AdvReac Type Severity Reaction Status Date / Time enflurane Allergy Severe nausea, Verified 06/04/23 18:50 jaundiced Iodinated Contrast Media Allergy Intermediate Hives- IVP Verified 06/04/23 18:50 dye CHECO Inhibitors Allergy Mild hives Verified 06/04/23 18:50 nickel Allergy Mild Redness, Verified 06/04/23 18:50 itching liraglutide [From Victoza] AdvReac Severe Severe Verified 06/04/23 18:50 nausea gabapentin AdvReac Intermediate Confusion Verified 06/04/23 18:50 Home Medications Medication Instructions Recorded Confirmed Type glucagon HCl 1 mg solution for 1 mg subcut Q20M PRN hypoglycemia 06/29/21 06/04/23 Rx injection (Glucagon (HCl) #1 ea Emergency Kit) atorvastatin 80 mg tablet 80 mg PO QPM #90 tabs 09/23/22 01/02/24 Rx cholecalciferol (vitamin D3) 25 1,000 unit PO HS 06/19/22 06/04/23 History mcg (1,000 unit) capsule (Vitamin D3) clopidogrel 75 mg tablet (Plavix) 75 mg PO QAM #90 tabs 07/12/22 06/04/23 Rx mometasone-formoterol HFA 200 2 puff inhalation BID PRN 12/20/22 06/04/23 History mcg-5 mcg/actuation aerosol Shortness Of Breath inhaler (Dulera) carvedilol 25 mg tablet (Coreg) 25 mg PO BID #180 tabs 01/23/23 06/04/23 Rx docusate sodium 100 mg capsule 100 mg PO BID 02/05/23 06/04/23 History (Dulcolax Stool Softener (docusate)) acetaminophen 500 mg tablet 1,000 mg (2 x 500 mg) PO Q8H PRN 02/15/23 06/04/23 Rx (Tylenol Extra Strength) fever or pain #30 tabs insulin lispro 100 unit/mL 1 sliding scale dose subcut ACHS 02/15/23 06/04/23 Rx subcutaneous solution (Humalog #10 mL U-100 Insulin) nifedipine 60 mg tablet,extended 60 mg PO HS #90 tabs 03/04/23 06/04/23 Rx release ferrous gluconate 324 mg (37.5 mg 324 mg PO QAM 03/20/23 06/04/23 History iron) tablet losartan 100 mg tablet 100 mg PO QAM 03/20/23 06/04/23 History omeprazole 20 mg capsule,delayed 20 mg PO HS 03/20/23 06/04/23 History release spironolactone 50 mg tablet 50 mg PO QAM 03/20/23 06/04/23 History levothyroxine 100 mcg tablet See Rx Instructions .Route .COMPLEX 04/08/23 06/04/23 History insulin detemir U-100 100 unit/mL 6 unit (0.06 mL) subcut HS #1 mL 04/18/23 06/04/23 Rx subcutaneous solution (Levemir U-100 Insulin) nystatin 100,000 unit/gram topical 1 applic topical BID PRN Skin 06/04/23 06/04/23 History powder Irritation oxycodone 5 mg tablet 5 mg PO Q6H PRN moderate-severe 06/04/23 06/04/23 Rx pain #120 tabs Patient History Medical History Hypothyroidism Hypertension Hyponatremia Acute kidney injury PAD (peripheral artery disease) Wound infection left foot wound - nonhealing and currently wearing a wound vac (03/2023) Sepsis treated inpatient 02/2023 [facility] Dehiscence of amputation stump of left lower extremity reason for upcoming procedure History of COVID-19 12/20/22 [facility] - no symptoms tested positive 02/15/23 at [facility], was told it was related to testing positive within 90 days back in December 2022 Diabetic foot ulcer Left heel with debridement in the past Constipation TMJ derangement no current issues Cerebral aneurysm "very small"/under suveillance S/P angiogram of extremity left leg Conductive hearing loss of right ear Vertigo hx Diabetes IDDM Below-knee amputation of right lower extremity Osteoporosis Scleroderma CREST syndrome follows with PCP Chronic GERD Benign essential hypertension Raynauds syndrome Hx of renal cell cancer R renal (2012) s/p right nephrectomy, no chemo/xrt Anemia Chronic History of MRSA infection 04/2017 (right foot - has since been amputated) > "no active infection" Carotid artery stenosis s/p Left CEA (2002), right CEA (1995) Vascular monitoring per recent visit 03/2023 Renal artery stenosis Right renal stent attempted 2010, s/p right nephrectomy 2012 Diverticular disease GERD (gastroesophageal reflux disease) Chronic kidney disease Stage III Deep vein thrombosis RLE DVT dx 2017; "chronic" PCP/vascular monitoring Hyperlipidemia Asthma Surgical History Status post amputation of left foot through metatarsal bone Status post below knee amputation of right lower extremity History of transmetatarsal amputation of left foot History of esophagogastroduodenoscopy (EGD) S/P amputation right Below the knee amputation History of oophorectomy B/L OVARIES History of carpal tunnel surgery RIGHT HAND, TRIGGER RIGHT FINGER History of left breast biopsy 1997 (benign) H/O sinus surgery History of angioplasty MULTIPLE OF LE'S WITH STENTS TO LOWER EXTREMITIES PLACED History of procedure for peripheral vascular disease LEFT POPLITEAL S/P PERONEAL ARTERY BYPASS 2012; RLE ANGIO WITH INTERVENTION 06/2017 H/O carotid endarterectomy LEFT (2002), RIGHT (1995) History of atherectomy LEFT (02/2017) History of amputation of lesser toe of right foot MULTIPLE TOE AMPUTATIONS/I&D (ALL RT TOES; all the left toes have been amputated) History of cardiac cath 2011= NO STENTS ([facility]) Nausea and vomiting after administration of anesthetic agent Hx of lumpectomy LEFT BREAST (BENIGN) History of hysterectomy MERYL W/ BSO History of nephrectomy RIGHT (2012) renal cell carcinoma History of appendectomy History of cholecystectomy History of colonoscopy History of endoscopic sinus surgery History of cataract surgery RT/LEFT History of tonsillectomy Family History Father Family hx of colon cancer Family history of diabetes mellitus Mother Lung cancer Stroke Unknown Rheumatoid arthritis Other No family history of adverse response to anesthesia No family history of bleeding disorder Social History Smoking Status: Never smoker Second Hand Exposure: No; Do You Dip or Chew Tobacco: No; Hx Alcohol Use: No Hx Substance Use: No Preferred Language: Vietnamese Communication Ability: Effective Visual Impairment: No Limitations Hearing Ability: Normal Circle Saw Operator Required: No Beliefs That Will Affect Care: None marital status: Current Living Situation: Spouse Current Living Situation Comment: lives in 1 [place] home with . home nursing 3x/week current occupational status: retired How many Children do You have: 0 How many Children do You have Comment: able to assist with care as needed. Other Information That Helps Us Care for You: No Feels Safe at Home: Yes Safety Concerns: Feels Safe At This Time Diet: diabetic during the past year weight has: decreased > 10 lbs Seatbelt Use: always Do you think of yourself as: straight/heterosexual Gender Identity: Female Assistive Devices: Walker and Wheelchair Review of Systems Review of Systems: All systems reviewed & are unremarkable except as noted in HPI & below Physical Exam Constitutional: WD/WN, vitals as above + thin, cooperative and comfortable; not in distress Respiratory: normal respiratory effort, lungs clear to auscultation Cardiovascular: Rate/Rhythm: regular rate and regular rhythm Vessels: femoral pulses present and radial pulses present; + posterior tibial pulses abnormal (BLE BKA) and + dorsalis pedis pulses abnormal (BLE BKA) Extremities: no edema Gastrointestinal (Abdomen): Inspection/Auscultation: abdomen normal to inspection and normal bowel sounds Percussion/Palpation: abdomen soft; abdomen nontender Musculoskeletal: Extremities: + amputation noted (BLE BKA) Skin: + incision (LLE BKA incision erythema, n ecrosis of skin edges, foul odor, mild serosan ) Wound dehisced 0.8cm Neurologic: moves all extremities and awake; no focal motor deficits and not confused Psychiatric: A+Ox3, euthymic affect Results & Data Vital Signs (Past 12 Hours) Vital Signs Temp Pulse Resp BP Pulse Ox O2 Del Method 06/05/23 08:30 Room Air 06/05/23 07:45 36.5 C 58 L 16 156/61 H 96 Room Air 06/05/23 02:20 166/62 H
[2023-06-05] MEDS ORDERED: HYDROmorphone INJ 0.5 MG/0.5 ML SYR IV STA (16:43)
--- NOTE | 2023-06-05 16:46 | Hospitalist Progress Note ---
Date of Service June 05, 2023 Assessment & Plan (1) Wound dehiscence: Plan: S/p LLE BKA on 04/11/[address] Umana Patient was sent in by Dr. Umana on 06/04/23 to receive antibiotics for wound site infection; plan is to do a revision in the OR on Wednesday 06/07 Vascular surgery consulted No leukocytosis; afebrile Hx of osteomyelitis Patient received vancomycin and Rocephin in the ED; no blood cultures prior to antibiotics being admitted MRSA swab ordered, pending Wound culture ordered, pending Will switch to Zosyn 4.5g IV q8h for Pseudomonas/anaerobic coverage; patient is diabetic We will also switch to daptomycin 4mg/kg IV q24h; hold atorvastatin Left tibia/fibula x-ray reveals no acute fracture, dislocation, or osseous erosion CRP, ESR, procalcitonin ordered, pending Wound care nurse consulted [facility] wound daily Acetaminophen as needed for pain/fever Oxycodone 5 mg p.o. q6h as needed for breakthrough pain (rated 8/10 to 10/10) ON 06/06 Labs reviewed. Awaiting debridement acheduled for 06/07 Patient requring pain extra dose of pain medicine. aslo increased laxative for BM. (2) Chronic kidney disease: Plan: BUN 23, creatinine 1.02 (baseline 0.9), EGFR 53.4 Avoid nephrotoxic agents Monitor daily BMP (3) Type 1 diabetes: Plan: Last A1c was 7.7% on 04/01/2023 Glucose 202 on arrival Patient normally takes Levemir 6u HS Lantus 6u HS while inpatient SSI; target BSG range 110-150mg/dL, CF 70, carb ratio 25 BSG ACHS T1DM diet Pharmacy glycemic consult Adjust regimen as needed AM A1c (4) Hypertension: Plan: Continue losartan, nifedipine, and carvedilol (5) PAD (peripheral artery disease): Plan: Continue clopidogrel (6) Hypothyroidism: Plan: Continue levothyroxine (7) Status post below-knee amputation of left lower extremity: (8) Below-knee amputation of right lower extremity: Plan Disposition: Admit to [facility] DNR/DNI T1DM diet VTE PPx: Heparin 5000u SQ q12h Admission and Anticipated Discharge Date Admission Date: June 04, 2023 Subjective Patient reports no new symptoms. Review of Systems Review of Systems: All systems reviewed & are unremarkable except as noted in HPI & below Physical Exam Physical Exam: Patient resting comfortably in bed. NO tachypnea, not using accessory muscles to breath, Results & Data Results & Data Vital Signs (Past 12 Hours) Vital Signs Temp Pulse Resp BP Pulse Ox O2 Del Method 06/05/23 15:29 36.6 C 54 L 18 164/71 H 95 Room Air 06/05/23 08:30 Room Air 06/05/23 07:45 36.5 C 58 L 16 156/61 H 96 Room Air PG Care Time/CCT Total # of Minutes Spent Total Time Spent with Patient: Total time spent is greater than 50% in coordination of care (as documented) at patient's floor/unit and/or counseling patient: Coding Level of Care Code 43162 SUB INP/OBS CARE 2/35MIN Diagnoses Wound dehiscence T81.30XA Chronic kidney disease N18.9 Chronic kidney disease stage: stage 3 (moderate) Type 1 diabetes E10.9 Hypertension I10 PAD (peripheral artery disease) I73.9 Hypothyroidism E03.9 Status post below-knee amputation of left lower extremity Z89.512 Below-knee amputation of right lower extremity S88.111A (2) Chronic kidney disease Chronic kidney disease stage: stage 3 (moderate)
[2023-06-05] MEDS: POLYETHYLENE (MIRALAX) 17 GM PACK PO SCH (17:42)
[2023-06-05] MEDS: SENNA 8.6 MG TAB PO SCH (18:30)
[2023-06-05] MEDS: NIFEdipine EXTENDED REL 30 MG TABCR PO SCH (20:07)
[2023-06-05] MEDS: CHOLECALCIFEROL 1,000 UNITS 25 MCG TAB PO SCH (20:07)
[2023-06-05] MEDS: PANTOprazole 40 MG TAB PO SCH (20:08)
[2023-06-05] MEDS: LANTUS PER UNIT CHARGE SQ SCH (20:55)
[2023-06-06] MEDS: PIPERACILLIN/TAZOBACTAM 4.5 GM in DEXTROSE 5% MINI-B 100 ML IV SCH ×3 (02:11→17:21)
[2023-06-06] MEDS: oxyCODONE HCL IR 5 MG TAB (IMMEDIATE RELEASE) PO PRN ×2 (03:20→21:52)
[2023-06-06] MEDS ORDERED: HYDROmorphone INJ 0.5 MG/0.5 ML SYR IV STA (04:09)
[2023-06-06] MEDS: LEVOTHYROXINE SODIUM 100 MCG TABLET PO SCH (05:47)
[2023-06-06] MEDS: carvediloL 25 MG TAB PO SCH ×2 (08:08→20:28)
[2023-06-06] MEDS: DAPTOmycin 250 MG in SYRINGE 0 ML IV SCH (08:08)
[2023-06-06] MEDS: LOSARTAN POTASSIUM 50 MG TAB PO SCH (08:09)
[2023-06-06] MEDS: CLOPIDOGREL BISULFATE 75 MG TAB PO SCH (08:09)
[2023-06-06] MEDS: FERROUS GLUCONATE 324 MG TAB PO SCH (08:09)
[2023-06-06] MEDS: SPIRONOLACTONE 25 MG TAB PO SCH (08:09)
[2023-06-06] MEDS: POLYETHYLENE (MIRALAX) 17 GM PACK PO SCH (08:10)
[2023-06-06] MEDS: SENNA 8.6 MG TAB PO SCH ×2 (08:10→20:52)
[2023-06-06] MEDS: FLUTICASONE/VILANTEROL 100/25MCG 14 PUFFS/INHALER INH SCH (08:14)
[2023-06-06] MEDS: ACETAMINOPHEN 325 MG TAB PO PRN (08:15)
[2023-06-06] MEDS: DOCUSATE SODIUM 100 MG CAP PO SCH ×2 (08:19→20:51)
[2023-06-06] MEDS: INSULIN ASPART PER UNIT CHARGE SC SCH ×4 (08:19→20:36)
[2023-06-06 08:22] LABS: Basophils # (auto) 0.02 K/uL (0.00-0.20); Basophils % (auto) 0.3 %; Eosinophils # (auto) 0.32 K/uL (0.00-0.50); Eosinophils % (auto) 4.8 %; Hemoglobin 10.4 g/dl (12.0-16.0); Immature Granulocytes # (auto) 0.02 K/uL (0.01-0.20); Immature Granulocytes % (auto) 0.3 %; Lymphocytes # (auto) 2.27 K/uL (1.20-3.40); Lymphocytes % (auto) 34.1 %; Mean Corpuscular Hemoglobin 29.7 pg (25.0-34.0); Mean Corpuscular Hgb Conc 32.5 g/dL (32.0-36.0); Mean Corpuscular Volume 91.4 fL (80.0-100.0); Mean Platelet Volume 11.4 fL (9.4-12.4); Monocytes # (auto) 0.48 K/uL (0.11-0.59); Monocytes % (auto) 7.2 %; Neutrophils # (auto) 3.55 K/uL (1.40-6.50); Neutrophils % (auto) 53.3 %; Platelet Count 199 K/uL (130-400); RDW Coefficient of Variation 15.8 % (11.5-14.5); RDW Standard Deviation 52.7 fL (36.4-46.3); White Blood Count 6.66 K/ul (4.8-10.8)
[2023-06-06 08:41] LABS: BUN Creatinine Ratio 18.1 (10-20); Calcium 8.2 mg/dl (8.6-10.3); Creatinine Clr Calc Pharmacy 37.1 ml/min; Est GFR (Non-African American) 45.7 ml/min; Potassium 3.5 mmol/L (3.5-5.1)
--- NOTE | 2023-06-06 08:54 | Hospitalist Progress Note ---
Date of Service June 06, 2023 Assessment & Plan (1) Wound dehiscence: Plan: S/p LLE BKA on 04/11/[address] Umana Patient was sent in by Dr. Umana on 06/04/23 to receive antibiotics for wound site infection; plan is to do a revision in the OR on Saturday 1/ Hx of osteomyelitis in foot as cause of initial surgery Patient received vancomycin and Rocephin in the ED; no blood cultures prior to antibiotics being admitted Wound culture ordered, pin point growth re incubiting Will switch to Zosyn 4.5g IV q8h for Pseudomonas/anaerobic coverage; patient is diabetic We will also switch to daptomycin 4mg/kg IV q24h; hold atorvastatin Left tibia/fibula x-ray reveals no acute fracture, dislocation, or osseous erosion Wound care nurse consulted [facility] wound daily Acetaminophen as needed for pain/fever Oxycodone 5 mg p.o. q6h as needed for breakthrough pain (rated 8/10 to 10/10) (2) Chronic kidney disease: Plan: CKD3 chronic and stable Avoid nephrotoxic agents (3) Type 1 diabetes: Plan: Last A1c was 7.7% on 04/01/2023 Glucose 202 on arrival Patient normally takes Levemir 6u HS Lantus 6u HS while inpatient SSI; target BSG range 110-150mg/dL, CF 70, carb ratio 25 BSG ACHS T1DM diet Pharmacy glycemic consult POC glucoses improving A1c 7.2 (4) Hypertension: Plan: Continue losartan, nifedipine, and carvedilol (5) PAD (peripheral artery disease): Plan: Continue clopidogrel (6) Hypothyroidism: Plan: Continue levothyroxine Plan DNR/DNI VTE PPx: Heparin 5000u SQ q12h Admission and Anticipated Discharge Date Admission Date: June 04, 2023 Subjective pt has no new issues is having some pain at dehiscence area Physical Exam Physical Exam: pt is with leg bandaged, cardiac exam is regular lungs are clear Results & Data Results & Data Vital Signs (Past 12 Hours) Vital Signs Temp Pulse Resp BP Pulse Ox O2 Del Method 06/06/23 08:39 98.4 F 67 19 178/74 H 96 Room Air 06/06/23 07:35 Room Air Laboratory Results reviewed cbc reviewed chemistry PG Care Time/CCT Total # of Minutes Spent Total Time Spent with Patient: Total time spent is greater than 50% in coordination of care (as documented) at patient's floor/unit and/or counseling patient: Coding Level of Care Code 29302 SUB INP/OBS CARE 2/35MIN Diagnoses Wound dehiscence T81.30XA Chronic kidney disease N18.9 Chronic kidney disease stage: stage 3 (moderate) Type 1 diabetes E10.9 Hypertension I10 PAD (peripheral artery disease) I73.9 Hypothyroidism E03.9 (2) Chronic kidney disease Chronic kidney disease stage: stage 3 (moderate)
[2023-06-06] MEDS: HEPARIN SOD 5,000 UNIT/0.5 ML VIAL SQ SCH (09:42)
[2023-06-06] MEDS: CHOLECALCIFEROL 1,000 UNITS 25 MCG TAB PO SCH (20:28)
[2023-06-06] MEDS: PANTOprazole 40 MG TAB PO SCH (20:33)
[2023-06-06] MEDS: NIFEdipine EXTENDED REL 30 MG TABCR PO SCH (20:33)
[2023-06-06] MEDS ORDERED: LANTUS PER UNIT CHARGE SQ SCH ×2 (21:00)
[2023-06-06] MEDS ORDERED: hydrALAZINE HCL 20 MG/ML VIAL IV STA (23:12)
[2023-06-07] MEDS: HYDROmorphone INJ 0.5 MG/0.5 ML SYR IV PRN ×6 (00:04→20:13)
[2023-06-07] MEDS: PIPERACILLIN/TAZOBACTAM 4.5 GM in DEXTROSE 5% MINI-B 100 ML IV SCH ×3 (02:36→17:36)
[2023-06-07] MEDS ORDERED: hydrALAZINE HCL 20 MG/ML VIAL IV STA (02:54)
[2023-06-07] MEDS: oxyCODONE HCL IR 5 MG TAB (IMMEDIATE RELEASE) PO PRN ×3 (05:12→23:37)
[2023-06-07] MEDS: LEVOTHYROXINE SODIUM 100 MCG TABLET PO SCH (06:03)
--- NOTE | 2023-06-07 07:26 | History & Physical Bridge Note ---
Date of Service June 07, 2023 History & Physical Bridge Note Patient for debridement for her stump today. I have discussed the risks options and benefits of the procedure with the patient. The patient understands the risks options and benefits and agrees to the procedure. I have examined the patient, reviewed the History & Physical and in the interval since the performance of the History & Physical I have noted the following changes of clinical significance: no changes noted
[2023-06-07 07:48] LABS: Basophils # (auto) 0.03 K/uL (0.00-0.20); Basophils % (auto) 0.4 %; Eosinophils # (auto) 0.45 K/uL (0.00-0.50); Eosinophils % (auto) 5.9 %; Hematocrit (blood only) 30.3 % (37.0-47.0); Hemoglobin 10.1 g/dl (12.0-16.0); Immature Granulocytes # (auto) 0.03 K/uL (0.01-0.20); Immature Granulocytes % (auto) 0.4 %; Lymphocytes # (auto) 2.63 K/uL (1.20-3.40); Lymphocytes % (auto) 34.6 %; Mean Corpuscular Hemoglobin 29.8 pg (25.0-34.0); Mean Corpuscular Hgb Conc 33.3 g/dL (32.0-36.0); Mean Corpuscular Volume 89.4 fL (80.0-100.0); Mean Platelet Volume 11.2 fL (9.4-12.4); Monocytes % (auto) 7.9 %; Neutrophils # (auto) 3.86 K/uL (1.40-6.50); Neutrophils % (auto) 50.8 %; Platelet Count 214 K/uL (130-400); RDW Coefficient of Variation 15.9 % (11.5-14.5); RDW Standard Deviation 52.2 fL (36.4-46.3); Red Blood Count 3.39 M/uL (4.20-5.40)
[2023-06-07 08:12] LABS: BUN Creatinine Ratio 17.6 (10-20); Calcium 8.3 mg/dl (8.6-10.3); Creatinine Clr Calc Pharmacy 36.2 ml/min; Est GFR (African American) 51.4 ml/min; Est GFR (Non-African American) 44.3 ml/min; Potassium 3.4 mmol/L (3.5-5.1)
[2023-06-07] MEDS: INSULIN ASPART PER UNIT CHARGE SC SCH ×4 (08:19→20:28)
[2023-06-07] MEDS: carvediloL 25 MG TAB PO SCH ×2 (08:21→20:02)
[2023-06-07] MEDS: FERROUS GLUCONATE 324 MG TAB PO SCH (08:21)
[2023-06-07] MEDS: LOSARTAN POTASSIUM 50 MG TAB PO SCH (08:21)
[2023-06-07] MEDS: SPIRONOLACTONE 25 MG TAB PO SCH (08:21)
[2023-06-07] MEDS: FLUTICASONE/VILANTEROL 100/25MCG 14 PUFFS/INHALER INH SCH (08:22)
[2023-06-07] MEDS: DAPTOmycin 250 MG in SYRINGE 0 ML IV SCH (08:30)
--- NOTE | 2023-06-07 09:09 | Pharmacy Report ---
Pharmacy Glycemic Short Note 2 - Date of Service June 07, 2023 - Glycemic Short BSG Results (Last 24 hours): 06/06/23 06/06/23 06/06/23 11:29 16:41 20:16 Glucose POC Glucose 141 H 90 228 H 06/07/23 06/07/23 07:25 07:26 Glucose 122 H POC Glucose 112 H OUTPATIENT ANTIDIABETIC REGIMEN: * Levemir 6 units * Humalog SSI ACHS HbA1c: 7.7% (04/01/23) ASSESSMENT: 06/07/23: * BSGs labile yesterday, ranging 79-228 mg/dL * Received 15 units of insulin (5 units of which were basal) * Fasting BSG of 112 mg/dL * NPO today for debridement of BKA stump * Do not anticipate any changes to glycemic regimen today. BSGs previously controlled on regimen similar to this one. Background: * 77 year old, type 1 diabetic presenting to ER for wound dehiscence of LLE BKA. Continues with IV antibiotics. Plan to continue home basal insulin dose. PLAN FOR INPATIENT GLYCEMIC CONTROL: * Basal insulin * Lantus 5-6 units SC HS (see EHR for details) * Bolus insulin * NovoLog per scale ACHS or Q6hrs while NPO * Goal Range: Low 110 mg/dL - High 150 mg/dL * Correction Factor: 35 mg/dL/unit * Nutritional / Prandial insulin per carb ratio of 1 unit per 15 grams CHO consumed
[2023-06-07] MEDS ORDERED: fentaNYL citrate PF 100 MCG/2 ML VIAL ONE (10:33)
[2023-06-07] MEDS ORDERED: ONDANSETRON INJ 2 MG/ML 2 ML VIAL ONE (10:34)
[2023-06-07] MEDS ORDERED: PROPOFOL IV EMULSION 10 MG/ML 20 ML VIAL IV ONE ×2 (10:34→10:56)
[2023-06-07] MEDS ORDERED: LIDOCAINE 2% 2 ML VIAL/AMP(20MG/ML) INFIL ONE (10:34)
--- NOTE | 2023-06-07 10:37 | Anesthesiology Consultation ---
Date of Service June 07, 2023 Assessment & Plan Chart Review Chart Review: Acceptable Risk for Surgery and Patient NOT seen in Pre Admission Testing Consults Requested none ASA ASA4 Proposed Anesthesia Anesthesia Type: General Risk / Benefits Reviewed With: PT / POA / Parent / Guardian, Accepts Plan and Informed Consent Obtained History Surgery Operation Date: 06/07/23 10:20 Proposed Procedures p Left Debridement Below Knee Amputation Stump Application of Wound Vac - Wesley Umana MD Height/Weight Height: 5 ft 5 in Weight: 59 kg Allergies Allergy/AdvReac Type Severity Reaction Status Date / Time enflurane Allergy Severe nausea, Verified 06/04/23 18:50 jaundiced Iodinated Contrast Media Allergy Intermediate Hives- IVP Verified 06/04/23 18:50 dye CHECO Inhibitors Allergy Mild hives Verified 06/04/23 18:50 nickel Allergy Mild Redness, Verified 06/04/23 18:50 itching liraglutide [From Victoza] AdvReac Severe Severe Verified 06/04/23 18:50 nausea gabapentin AdvReac Intermediate Confusion Verified 06/04/23 18:50 Medications Home Medications Medication Instructions Recorded Confirmed Last Taken glucagon HCl 1 mg solution for 1 mg subcut Q20M PRN hypoglycemia 06/29/21 06/04/23 Unknown injection (Glucagon (HCl) #1 ea Emergency Kit) atorvastatin 80 mg tablet 80 mg PO QPM #90 tabs 02/23/22 06/04/23 06/03/23 cholecalciferol (vitamin D3) 25 1,000 unit PO HS 06/19/22 06/04/23 06/03/23 mcg (1,000 unit) capsule (Vitamin D3) clopidogrel 75 mg tablet (Plavix) 75 mg PO QAM #90 tabs 07/12/22 06/04/23 06/04/23 mometasone-formoterol HFA 200 2 puff inhalation BID PRN 12/20/22 06/04/23 02/10/23 mcg-5 mcg/actuation aerosol Shortness Of Breath inhaler (Dulera) carvedilol 25 mg tablet (Coreg) 25 mg PO BID #180 tabs 01/23/23 06/04/23 06/04/23 08:00 docusate sodium 100 mg capsule 100 mg PO BID 02/05/23 06/04/23 06/04/23 08:00 (Dulcolax Stool Softener (docusate)) acetaminophen 500 mg tablet 1,000 mg (2 x 500 mg) PO Q8H PRN 02/15/23 06/04/23 03/26/23 17:00 (Tylenol Extra Strength) fever or pain #30 tabs insulin lispro 100 unit/mL 1 sliding scale dose subcut ACHS 02/15/23 06/04/23 06/04/23 subcutaneous solution (Humalog #10 mL U-100 Insulin) nifedipine 60 mg tablet,extended 60 mg PO HS #90 tabs 03/04/23 06/04/23 06/03/23 release ferrous gluconate 324 mg (37.5 mg 324 mg PO QAM 03/20/23 06/04/23 06/04/23 iron) tablet losartan 100 mg tablet 100 mg PO QAM 03/20/23 06/04/23 06/04/23 omeprazole 20 mg capsule,delayed 20 mg PO HS 03/20/23 06/04/23 06/03/23 release spironolactone 50 mg tablet 50 mg PO QAM 03/20/23 06/04/23 06/04/23 levothyroxine 100 mcg tablet See Rx Instructions .Route .COMPLEX 04/08/23 06/04/23 06/04/23 100 MCG insulin detemir U-100 100 unit/mL 6 unit (0.06 mL) subcut HS #1 mL 04/18/23 06/04/23 06/03/23 subcutaneous solution (Levemir U-100 Insulin) nystatin 100,000 unit/gram topical 1 applic topical BID PRN Skin 06/04/23 06/04/23 Unknown powder Irritation oxycodone 5 mg tablet 5 mg PO Q6H PRN moderate-severe 06/04/23 06/04/23 Unknown pain #120 tabs Active Medications Generic Name Dose Route Start Last Admin Trade Name Freq PRN Reason Stop Dose Admin Acetaminophen 650 mg 06/04/23 20:41 06/06/23 08:15 Acetaminophen 325 Mg Tab PO 07/04/23 20:40 650 mg Q4H PRN Administration pain/fever Carvedilol 25 mg 06/05/23 09:00 06/07/23 08:21 Carvedilol 25 Mg Tab PO 07/05/23 08:59 25 mg BID ANANTH Administration Clopidogrel Bisulfate 75 mg 06/05/23 09:00 06/06/23 08:09 Clopidogrel Bisulfate 75 Mg Tab PO 07/05/23 08:59 75 mg QAM ANANTH Administration Docusate Sodium 100 mg 06/04/23 21:00 06/06/23 20:51 Docusate Sodium 100 Mg Cap PO 07/04/23 20:59 Not Given BID ANANTH Ferrous Gluconate 324 mg 06/05/23 09:00 06/07/23 08:21 Ferrous Gluconate 324 Mg Tab PO 07/05/23 08:59 324 mg QAM ANANTH Administration Fluticasone/Vilanterol 1 puffs 06/05/23 09:00 06/07/23 08:22 Fluticasone/Vilanterol 100/25mcg 14 Puffs/Inhaler INH 07/05/23 08:59 1 puffs DAILY ANANTH Administration Heparin Sodium (Porcine) 5,000 units 06/04/23 21:00 06/06/23 09:42 Heparin Sod 5,000 Unit/0.5 Ml Vial SQ 07/04/23 20:59 5,000 units Q12 ANANTH Administration Hydromorphone HCl 0.5 mg 06/06/23 17:02 06/07/23 04:10 Hydromorphone Inj 0.5 Mg/0.5 Ml Syr IV 06/20/23 17:01 0.5 mg Q4H PRN Administration Severe Pain (Scale 7, 8, 9,10) Piperacillin Sod/Tazobactam 100 mls @ 25 mls/hr 06/05/23 02:00 06/07/23 08:20 Sod 4.5 gm/ Dextrose IV 06/12/23 01:59 Infused Q8H [facility] Infusion Protocol Daptomycin 250 mg/ Syringe 5 mls @ 2.5 mls/min 06/05/23 08:00 06/07/23 08:30 IV 06/12/23 07:59 2.5 mls/min Q24H [facility] Administration Protocol Insulin Aspart 0 units 06/04/23 21:00 06/07/23 08:19 Insulin Aspart Per Unit Charge SC 07/04/23 20:59 Not Given ACHS [facility] Insulin Glargine 5 units 06/06/23 21:00 06/06/23 20:42 Lantus Per Unit Charge SQ 07/06/23 20:59 5 units HS ANANTH Administration Levothyroxine Sodium 100 mcg 06/05/23 06:30 06/07/23 06:03 Levothyroxine Sodium 100 Mcg Tablet PO 07/05/23 06:29 100 mcg [id number] ANANTH Administration Losartan Potassium 100 mg 06/05/23 09:00 06/07/23 08:21 Losartan Potassium 50 Mg Tab PO 07/05/23 08:59 100 mg QAM ANANTH Administration Nifedipine 60 mg 06/05/23 21:00 06/06/23 20:33 Nifedipine Extended Rel 30 Mg Tabcr PO 07/05/23 20:59 60 mg HS ANANTH Administration Oxycodone HCl 10 mg 06/06/23 17:02 06/07/23 05:12 Oxycodone Hcl Ir 5 Mg Tab (Immediate Release) PO 06/18/23 20:40 10 mg Q6H PRN Administration moderate-severe pain Pantoprazole Sodium 40 mg 06/04/23 21:00 06/06/23 20:33 Pantoprazole 40 Mg Tab PO 07/04/23 20:59 40 mg HS ANANTH Administration Polyethylene Glycol 17 gm 06/05/23 16:45 06/06/23 08:10 Polyethylene (Miralax) 17 Gm Pack PO 07/05/23 16:44 17 gm DAILY ANANTH Administration Sennosides 17.2 mg 06/06/23 21:00 06/06/23 20:52 Senna 8.6 Mg Tab PO 07/06/23 20:59 Not Given BID ANANTH Spironolactone 50 mg 06/05/23 09:00 06/07/23 08:21 Spironolactone 25 Mg Tab PO 07/05/23 08:59 50 mg QAM ANANTH Administration Vitamin D 1,000 units 06/04/23 21:00 06/06/23 20:28 Cholecalciferol 1,000 Units 25 Mcg Tab PO 07/04/23 20:59 1,000 units HS ANANTH Administration NPO Date Last Intake of Fluids: 06/07/23 Time Last Intake of Fluids: 08:20 Last Intake of Fluids Comment: sip with med Date Last Intake of Solids: 06/06/23 Time Last Intake of Solids: 17:00 Past Medical History Medical History Hypothyroidism Hypertension Hyponatremia Acute kidney injury PAD (peripheral artery disease) Wound infection left foot wound - nonhealing and currently wearing a wound vac (03/2023) Sepsis treated inpatient 02/2023 [facility] Dehiscence of amputation stump of left lower extremity reason for upcoming procedure History of COVID-19 12/20/22 [facility] - no symptoms tested positive 02/15/23 at [facility], was told it was related to testing positive within 90 days back in December 2022 Diabetic foot ulcer Left heel with debridement in the past Constipation TMJ derangement no current issues Cerebral aneurysm "very small"/under suveillance S/P angiogram of extremity left leg Conductive hearing loss of right ear Vertigo hx Diabetes IDDM Below-knee amputation of right lower extremity Osteoporosis Scleroderma CREST syndrome follows with PCP Chronic GERD Benign essential hypertension Raynauds syndrome Hx of renal cell cancer R renal (2012) s/p right nephrectomy, no chemo/xrt Anemia Chronic History of MRSA infection 04/2017 (right foot - has since been amputated) > "no active infection" Carotid artery stenosis s/p Left CEA (2002), right CEA (1995) Vascular monitoring per recent visit 03/2023 Renal artery stenosis Right renal stent attempted 2010, s/p right nephrectomy 2012 Diverticular disease GERD (gastroesophageal reflux disease) Chronic kidney disease Stage III Deep vein thrombosis RLE DVT dx 2017; "chronic" PCP/vascular monitoring Hyperlipidemia Asthma Exercise / Class Metabolic Activity III < 4 Walking/Shop/Light housework Past Family History Family History Father Family hx of colon cancer Family history of diabetes mellitus Mother Lung cancer Stroke Unknown Rheumatoid arthritis Other No family history of adverse response to anesthesia No family history of bleeding disorder Past Surgical History Surgical History Status post amputation of left foot through metatarsal bone Status post below knee amputation of right lower extremity History of transmetatarsal amputation of left foot History of esophagogastroduodenoscopy (EGD) S/P amputation right Below the knee amputation History of oophorectomy B/L OVARIES History of carpal tunnel surgery RIGHT HAND, TRIGGER RIGHT FINGER History of left breast biopsy 1997 (benign) H/O sinus surgery History of angioplasty MULTIPLE OF LE'S WITH STENTS TO LOWER EXTREMITIES PLACED History of procedure for peripheral vascular disease LEFT POPLITEAL S/P PERONEAL ARTERY BYPASS 2012; RLE ANGIO WITH INTERVENTION 06/2017 H/O carotid endarterectomy LEFT (2002), RIGHT (1995) History of atherectomy LEFT (02/2017) History of amputation of lesser toe of right foot MULTIPLE TOE AMPUTATIONS/I&D (ALL RT TOES; all the left toes have been amputated) History of cardiac cath 2011= NO STENTS ([facility]) Nausea and vomiting after administration of anesthetic agent Hx of lumpectomy LEFT BREAST (BENIGN) History of hysterectomy MERYL W/ BSO History of nephrectomy RIGHT (2012) renal cell carcinoma History of appendectomy History of cholecystectomy History of colonoscopy History of endoscopic sinus surgery History of cataract surgery RT/LEFT History of tonsillectomy Past Anesthesia History No Hx of Anesthesia Complications and No Family Hx of Anesthesia Complications History of PONV No Hx of PONV and No Hx of Motion Sickness Social History Smoking Status: Never smoker Do You Dip or Chew Tobacco: No Hx Alcohol Use: No Hx Substance Use: No substance use type: does not use Physical Exam Vital Signs Last Vital Signs Temp 36.7 C 06/07/23 09:50 Pulse 68 06/07/23 09:50 Resp 20 06/07/23 09:50 BP 166/62 H 06/07/23 09:50 Pulse Ox 96 06/07/23 09:50 O2 Del Method Room Air 06/07/23 09:50 Constitutional no acute distress and not cachectic ENMT Mouth: no dentition abnormality Thyromental Distance: < 3.5 Finger Breadths Mallampati Class: II Neck normal visual inspection and trachea midline; neck extension not limited Respiratory normal respiratory effort Auscultation: lungs clear to auscultation bilaterally and + diminished lung sounds Cardiovascular Rate/Rhythm: regular rate and regular rhythm Heart Sounds: no murmur Vessels: no carotid bruit Musculoskeletal Spine: normal cervical ROM and no pain with cervical ROM Extremities: + amputation noted; + extremities abnormal to inspection and full ROM of extremities Neurologic moves all extremities Motor/Sensory: + sensory deficit Psychiatric Orientation: alert and oriented x 3 Testing Laboratory Results 06/07/23 07:26 06/07/23 07:26 Hemoglobin A1c 7.2 % (4.5-5.6) H 06/05/23 06:59 Blood Type O Positive 06/06/23 15:37 Antibody Screen NEGATIVE 06/06/23 15:37 06/04/23 20:53 Aerobic Blood Culture - Preliminary Blood No growth in Aerobic bottle after 48 hours. Anaerobic Blood Culture - Preliminary No growth in Anaerobic bottle after 48 hours. 06/04/23 16:24 Aerobic Blood Culture - Preliminary Blood No growth in Aerobic bottle after 48 hours. Anaerobic Blood Culture - Preliminary No growth in Anaerobic bottle after 48 hours. 06/05/23 Unknown Gram Stain - Final Leg,Left Wound Culture - Preliminary Pin-point growth present, reincubating. 06/07/23 06/07/23 09:46 07:25 POC Glucose 115 H 112 H Electrocardiogram Date: 03/27/23 Findings: + NSR @ (@ 67) Echocardiogram Date: 12/21/22 EF: 65% LV Function: normal RWMA: + none Other Findings: + LVH (mod.) Valvular Disease: + no significant valvular disease
[2023-06-07] MEDS ORDERED: PROMETHAZINE HCL 12.5 MG in SODIUM CHLORIDE 0.9% 50 ML IV PRN (10:41)
[2023-06-07] MEDS ORDERED: ONDANSETRON INJ 2 MG/ML 2 ML VIAL IV PRN (10:41)
[2023-06-07] MEDS ORDERED: FLUMAZENIL 0.1 MG/1 ML 10 ML VIAL IV PRN (10:41)
[2023-06-07] MEDS ORDERED: NALOXONE HCL 0.4 MG/1 ML VIAL/CARP IV PRN (10:41)
[2023-06-07] MEDS ORDERED: ATROPINE SULFATE 0.1 MG/ML 10ML SYR IV PRN (10:41)
[2023-06-07] MEDS ORDERED: ePHEDrine sulfate 50 MG/ML AMP IV PRN (10:41)
[2023-06-07] MEDS ORDERED: LABETALOL HCL IV 5 MG/ML 20ML IV PRN (10:41)
[2023-06-07] MEDS ORDERED: GLYCOPYRROLATE 0.2 MG/ML VIAL ONE (10:56)
--- NOTE | 2023-06-07 11:28 | Operative Report ---
Post Operative Report Pre & Post Diagnosis Operation Date: 06/07/23 10:20 Pre-Op Diagnosis: Wound Dehiscence at left lower extremity below the knee site Post-Op Diagnosis: Wound Dehiscence at left lower extremity below the knee site I identified the patient and participated in the time-out.: Yes Procedure Operation Date: 06/07/23 10:20 Actual Procedures p Left Debridement Below Knee Amputation of skin and subcuatneous tissure, Stump Application of Wound Vac (13.5x3.5x3.5cm)(Left) - Wesley Umana MD Surgeon Wesley Umana MD Back Seam Stitcher HOLLIE Low Estimated Blood Loss 50 Findings Consistent with Post-Op Diagnosis Specimens none Anesthesia Type General Complications none Disposition Accompanied Patient To Recovery: No Disposition: Recovery Room Indications This is a 77-year-old female who had a left below-knee amputation 6 weeks prior to this. She presented with dehiscence of the wound and necrotic wound edges. Debridement was recommended. I have discussed the risks options and benefits of the procedure with the patient. The patient understands the risks options and benefits and agrees to the procedure. Description of Procedure The patient was taken the operating placed supine position. The left BKA stump was then prepped and draped in a sterile manner. A timeout was performed and the patient was identified. Incision was made along the edges of the necrotic tissue above and below the old incision. This was carried down to where the muscle fascial layer began. All skin and subcutaneous fat were removed. The muscle below appeared viable and and bled nicely. After all necrotic tissue was debrided the bone was covered with the posterior flap which was viable. Adequate hemostasis was obtained. The wound itself was 13.5 x 3.5 x 3.5 cm in size. A silver wound VAC was then applied to this wound for wound care.The patient left the operation room in satisfactory condition and tolerated the procedure well. All needle and sponge counts were correct at the end of the procedure. Marzena Pastor Pac assisted due to lack of resident availability and was necessary for positioning, draping, retraction, wound closure deep layers, subcutaneous tissue, and skin closure and was necessary for assisting with the case. I attest to the content of the Intraoperative Record and any orders documented therein. Any exceptions are noted below.
[2023-06-07] MEDS: fentaNYL citrate PF 100 MCG/2 ML VIAL IV PRN ×4 (11:55→12:10)
[2023-06-07] MEDS: HYDROmorphone INJ 1 MG/ML SYRINGE IV PRN ×8 (12:15→12:50)
[2023-06-07] MEDS ORDERED: HYDROmorphone INJ 2 MG/ML SYR/VIAL ONE (13:28)
--- NOTE | 2023-06-07 14:35 | Anesthesiology Progress Note ---
Date of Service June 07, 2023 Anesthesia Post Procedure Vital Signs Vital Signs: Temp Pulse Pulse Resp BP Pulse Ox O2 Del Method 06/07/23 14:05 37.2 C 74 22 173/65 H 99 Nasal Cannula 06/07/23 13:55 80 16 167/64 H 97 Room Air 06/07/23 13:45 77 18 162/63 H 96 Room Air 06/07/23 13:35 80 18 174/71 H 97 Room Air 06/07/23 13:25 82 23 180/63 H 94 Room Air 06/07/23 13:15 81 23 180/80 H 97 Room Air 06/07/23 13:05 81 16 171/86 H 97 Room Air 06/07/23 12:55 80 16 169/77 H 97 Room Air 06/07/23 12:45 81 18 158/71 H 96 Room Air 06/07/23 12:35 80 16 163/65 H 96 Room Air 06/07/23 12:25 78 20 165/69 H 98 Oxymask 06/07/23 12:15 74 22 163/74 H 98 Oxymask 06/07/23 12:05 78 20 162/63 H 99 Oxymask 06/07/23 11:55 76 20 152/85 H 99 Oxymask 06/07/23 11:45 36.8 C 76 16 155/61 H 100 Oxymask 06/07/23 09:50 36.7 C 68 20 166/62 H 96 Room Air 06/07/23 07:27 36.9 C 68 16 163/63 H 95 Room Air 06/07/23 03:47 168/78 H 06/07/23 02:43 221/74 H 06/07/23 00:52 67 189/70 H 06/06/23 23:43 194/74 H 06/06/23 23:01 220/76 H 06/06/23 21:05 36.7 C 64 16 219/78 H 96 Room Air 06/06/23 20:27 64 06/06/23 15:30 36.9 C 59 L 16 186/70 H 95 Room Air O2 Flow Rate 06/07/23 14:05 2 06/07/23 13:55 06/07/23 13:45 06/07/23 13:35 06/07/23 13:25 06/07/23 13:15 06/07/23 13:05 06/07/23 12:55 06/07/23 12:45 06/07/23 12:35 06/07/23 12:25 2 06/07/23 12:15 2 06/07/23 12:05 4 06/07/23 11:55 4 06/07/23 11:45 6 06/07/23 09:50 06/07/23 07:27 06/07/23 03:47 06/07/23 02:43 06/07/23 00:52 06/06/23 23:43 06/06/23 23:01 06/06/23 21:05 06/06/23 20:27 06/06/23 15:30 Pain Intensity Left Knee: Pain Intensity: 9 Transfer of Care Handoff Completed per policy Notes Mental Status: alert / awake / arousable Patient Amnestic to Procedure: Yes Nausea / Vomiting: adequately controlled Pain: adequately controlled Airway Patency, RR, SpO2: stable & adequate BP & HR: stable & adequate Hydration State: stable & adequate Anesthetic Complications: no major complications apparent
[2023-06-07] MEDS: DOCUSATE SODIUM 100 MG CAP PO SCH ×2 (15:02→20:07)
[2023-06-07] MEDS: POLYETHYLENE (MIRALAX) 17 GM PACK PO SCH (15:02)
[2023-06-07] MEDS: CLOPIDOGREL BISULFATE 75 MG TAB PO SCH (15:02)
[2023-06-07] MEDS: SENNA 8.6 MG TAB PO SCH ×2 (15:02→20:00)
[2023-06-07] MEDS ORDERED: POTASSIUM CHLORIDE CRTAB 20 MEQ TABCR PO STA (16:54)
--- NOTE | 2023-06-07 16:54 | Hospitalist Progress Note ---
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 Umana Patient was sent in by Dr. Umana on 06/04/23 to receive antibiotics for wound site infection; plan is to do a revision in the OR on Wednesday 06/07 Hx of osteomyelitis in foot as cause of initial surgery Patient received vancomycin and Rocephin in the ED; no blood cultures prior to antibiotics being admitted Wound culture ordered, pin point growth re incubiting Zosyn 4.5g IV q8h for Pseudomonas/anaerobic coverage; patient is diabetic daptomycin 4mg/kg IV q24h; hold atorvastatin Left tibia/fibula x-ray reveals no acute fracture, dislocation, or osseous erosion Wound care nurse consulted Acetaminophen as needed for pain/fever Oxycodone 10 mg p.o. q6h as needed for breakthrough pain (rated 8/10 to 10/10) Parenteral hydromorphone also ordered (2) Chronic kidney disease: Plan: CKD3 chronic and stable Avoid nephrotoxic agents (3) Type 1 diabetes: Plan: Last A1c was 7.7% on 04/01/2023 Glucose 202 on arrival Patient normally takes Levemir 6u HS Lantus 6u HS while inpatient SSI; target BSG range 110-150mg/dL, CF 70, carb ratio 25 BSG ACHS T1DM diet Pharmacy glycemic consult POC glucoses improving A1c 7.2 (4) Hypertension: Plan: Continue losartan, nifedipine, and carvedilol (5) PAD (peripheral artery disease): Plan: Continue clopidogrel (6) Hypothyroidism: Plan: Continue levothyroxine Plan DNR/DNI Hypokalemia augmented on 06/07/2023 VTE PPx: Heparin 5000u SQ q12h Admission and Anticipated Discharge Date Admission Date: June 04, 2023 Subjective pt had revision of BKA stump and has some post operative pain Physical Exam Physical Exam: pt in pain otherwise is stable with regular heart beat and clear lungs Results & Data Results & Data Vital Signs (Past 12 Hours) Vital Signs Temp Pulse Pulse Pulse Resp BP Pulse Ox 06/07/23 15:39 97.5 F L 76 16 153/61 H 97 06/07/23 15:09 06/07/23 15:00 98.2 F 73 15 155/67 H 98 06/07/23 14:30 98.1 F 73 15 167/56 H 94 06/07/23 14:05 99.0 F 74 22 173/65 H 99 06/07/23 13:55 80 16 167/64 H 97 06/07/23 13:45 77 18 162/63 H 96 06/07/23 13:35 80 18 174/71 H 97 06/07/23 13:25 82 23 180/63 H 94 06/07/23 13:15 81 23 180/80 H 97 06/07/23 13:05 81 16 171/86 H 97 06/07/23 12:55 80 16 169/77 H 97 06/07/23 12:45 81 18 158/71 H 96 06/07/23 12:35 80 16 163/65 H 96 06/07/23 12:25 78 20 165/69 H 98 06/07/23 12:15 74 22 163/74 H 98 06/07/23 12:05 78 20 162/63 H 99 06/07/23 11:55 76 20 152/85 H 99 06/07/23 11:45 98.2 F 76 16 155/61 H 100 06/07/23 09:50 98.1 F 68 20 166/62 H 96 06/07/23 07:27 98.4 F 68 16 163/63 H 95 O2 Del Method O2 Flow Rate 06/07/23 15:39 Nasal Cannula 2 06/07/23 15:09 Nasal Cannula 2 06/07/23 15:00 Nasal Cannula 2 06/07/23 14:30 Nasal Cannula 2 06/07/23 14:05 Nasal Cannula 2 06/07/23 13:55 Room Air 06/07/23 13:45 Room Air 06/07/23 13:35 Room Air 06/07/23 13:25 Room Air 06/07/23 13:15 Room Air 06/07/23 13:05 Room Air 06/07/23 12:55 Room Air 06/07/23 12:45 Room Air 06/07/23 12:35 Room Air 06/07/23 12:25 Oxymask 2 06/07/23 12:15 Oxymask 2 06/07/23 12:05 Oxymask 4 06/07/23 11:55 Oxymask 4 06/07/23 11:45 Oxymask 6 06/07/23 09:50 Room Air 06/07/23 07:27 Room Air Laboratory Results reviewed cbc reviewed chemistry PG Care Time/CCT Total # of Minutes Spent Total Time Spent with Patient: Total time spent is greater than 50% in coordination of care (as documented) at patient's floor/unit and/or counseling patient: Coding Level of Care Code 94051 SUB INP/OBS CARE 2/35MIN Diagnoses Wound dehiscence T81.30XA Chronic kidney disease N18.9 Chronic kidney disease stage: stage 3 (moderate) Type 1 diabetes E10.9 Hypertension I10 PAD (peripheral artery disease) I73.9 Hypothyroidism E03.9 (2) Chronic kidney disease Chronic kidney disease stage: stage 3 (moderate)
[2023-06-07] MEDS: NIFEdipine EXTENDED REL 30 MG TABCR PO SCH (20:01)
[2023-06-07] MEDS: PANTOprazole 40 MG TAB PO SCH (20:01)
[2023-06-07] MEDS: CHOLECALCIFEROL 1,000 UNITS 25 MCG TAB PO SCH (20:01)
[2023-06-07] MEDS: HEPARIN SOD 5,000 UNIT/0.5 ML VIAL SQ SCH (20:09)
[2023-06-07] MEDS: LANTUS PER UNIT CHARGE SQ SCH (20:29)
[2023-06-07] MEDS: ACETAMINOPHEN 325 MG TAB PO PRN (22:27)
[2023-06-08] MEDS: PIPERACILLIN/TAZOBACTAM 4.5 GM in DEXTROSE 5% MINI-B 100 ML IV SCH ×3 (01:34→17:46)
[2023-06-08] MEDS: LEVOTHYROXINE SODIUM 200 MCG TABLET PO SCH (05:13)
[2023-06-08] MEDS: HYDROmorphone INJ 0.5 MG/0.5 ML SYR IV PRN ×3 (05:16→17:41)
[2023-06-08 07:41] LABS: BUN Creatinine Ratio 14.9 (10-20); Creatinine Clr Calc Pharmacy 35.6 ml/min; Est GFR (African American) 50.3 ml/min; Est GFR (Non-African American) 43.4 ml/min; Magnesium 1.4 mg/dl (1.7-2.4); Potassium 3.8 mmol/L (3.5-5.1)
[2023-06-08] MEDS: DAPTOmycin 250 MG in SYRINGE 0 ML IV SCH (08:17)
[2023-06-08] MEDS: oxyCODONE HCL IR 5 MG TAB (IMMEDIATE RELEASE) PO PRN ×2 (08:22→15:31)
[2023-06-08] MEDS: INSULIN ASPART PER UNIT CHARGE SC SCH ×4 (09:02→21:31)
[2023-06-08] MEDS: carvediloL 25 MG TAB PO SCH ×2 (09:03→20:45)
[2023-06-08] MEDS: LOSARTAN POTASSIUM 50 MG TAB PO SCH (09:04)
[2023-06-08] MEDS: CLOPIDOGREL BISULFATE 75 MG TAB PO SCH (09:04)
[2023-06-08] MEDS: FERROUS GLUCONATE 324 MG TAB PO SCH (09:04)
[2023-06-08] MEDS: MAGNESIUM SULFATE / D5W 1 GM/100 ML BAG IV SCH ×2 (09:05→11:25)
[2023-06-08] MEDS: SPIRONOLACTONE 25 MG TAB PO SCH (09:05)
[2023-06-08] MEDS: POLYETHYLENE (MIRALAX) 17 GM PACK PO SCH (09:12)
[2023-06-08] MEDS: SENNA 8.6 MG TAB PO SCH ×2 (09:13→20:43)
[2023-06-08] MEDS: FLUTICASONE/VILANTEROL 100/25MCG 14 PUFFS/INHALER INH SCH (09:20)
[2023-06-08] MEDS: DOCUSATE SODIUM 100 MG CAP PO SCH ×2 (09:21→21:32)
[2023-06-08] MEDS: HEPARIN SOD 5,000 UNIT/0.5 ML VIAL SQ SCH ×2 (12:18→20:44)
--- NOTE | 2023-06-08 14:24 | Hospitalist Progress Note ---
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 Umana Patient was sent in by Dr. Umana on 06/04/23 to receive antibiotics for wound site infection; s/p revision in the OR on Saturday06/07/23, left open, wound vacc in place Hx of osteomyelitis in foot as cause of initial surgery, non suspected at this time Patient received vancomycin and Rocephin in the ED; no blood cultures prior to antibiotics being admitted Wound culture ordered, pin point growth re incubating Zosyn 4.5g IV q8h for Pseudomonas/anaerobic coverage; patient is diabetic daptomycin 4mg/kg IV q24h; hold atorvastatin Left tibia/fibula x-ray reveals no acute fracture, dislocation, or osseous erosion Wound care nurse consulted Acetaminophen as needed for pain/fever Oxycodone 10 mg p.o. q6h as needed for breakthrough pain (rated 8/10 to 10/10) Parenteral hydromorphone also ordered (2) Chronic kidney disease: Plan: CKD3 chronic and stable Avoid nephrotoxic agents (3) Type 1 diabetes: Plan: Last A1c was 7.7% on 04/01/2023 Glucose 202 on arrival Patient normally takes Levemir 6u HS Lantus 6u HS while inpatient Pharmacy glycemic consult A1c 7.2 (4) Hypertension: Plan: Continue losartan, nifedipine, and carvedilol (5) PAD (peripheral artery disease): Plan: Continue clopidogrel (6) Hypothyroidism: Plan: Continue levothyroxine Plan DNR/DNI Hypokalemia augmented on 06/07/2023, now replete VTE PPx: Heparin 5000u SQ q12h Admission and Anticipated Discharge Date Admission Date: June 04, 2023 Subjective pt had revision of BKA stump and has some post operative pain wound vacc inplace as wound left open to heal by secondary intent Physical Exam Physical Exam: pt with pain on movement cardiac exam is regular left bka with wound vacc inplace Results & Data Results & Data Vital Signs (Past 12 Hours) Vital Signs Temp Pulse Resp BP Pulse Ox O2 Del Method O2 Flow Rate 06/08/23 07:04 97.7 F 61 18 150/67 H 96 Nasal Cannula 2 06/08/23 03:23 98.1 F 63 18 166/53 H 95 Nasal Cannula 2 Laboratory Results review hgb review chemistry PG Care Time/CCT Total # of Minutes Spent Total Time Spent with Patient: Total time spent is greater than 50% in coordination of care (as documented) at patient's floor/unit and/or counseling patient: Coding Level of Care Code 17585 SUB INP/OBS CARE 3/50MIN Diagnoses Wound dehiscence T81.30XA Chronic kidney disease N18.9 Chronic kidney disease stage: stage 3 (moderate) Type 1 diabetes E10.9 Hypertension I10 PAD (peripheral artery disease) I73.9 Hypothyroidism E03.9 (2) Chronic kidney disease Chronic kidney disease stage: stage 3 (moderate)
[2023-06-08] MEDS: NIFEdipine EXTENDED REL 30 MG TABCR PO SCH (20:44)
[2023-06-08] MEDS: CHOLECALCIFEROL 1,000 UNITS 25 MCG TAB PO SCH (20:44)
[2023-06-08] MEDS: PANTOprazole 40 MG TAB PO SCH (20:45)
[2023-06-08] MEDS: LANTUS PER UNIT CHARGE SQ SCH (21:31)
[2023-06-09] MEDS: oxyCODONE HCL IR 5 MG TAB (IMMEDIATE RELEASE) PO PRN ×3 (02:09→21:54)
[2023-06-09] MEDS: PIPERACILLIN/TAZOBACTAM 4.5 GM in DEXTROSE 5% MINI-B 100 ML IV SCH ×3 (02:10→17:21)
[2023-06-09] MEDS: HYDROmorphone INJ 0.5 MG/0.5 ML SYR IV PRN ×3 (03:28→15:03)
[2023-06-09] MEDS: LEVOTHYROXINE SODIUM 200 MCG TABLET PO SCH (05:57)
[2023-06-09] MEDS: DAPTOmycin 250 MG in SYRINGE 0 ML IV SCH (07:34)
[2023-06-09] MEDS: DOCUSATE SODIUM 100 MG CAP PO SCH ×2 (08:31→21:48)
[2023-06-09] MEDS: SENNA 8.6 MG TAB PO SCH ×2 (08:31→21:49)
[2023-06-09] MEDS: SPIRONOLACTONE 25 MG TAB PO SCH (08:31)
[2023-06-09] MEDS: CLOPIDOGREL BISULFATE 75 MG TAB PO SCH (08:31)
[2023-06-09] MEDS: HEPARIN SOD 5,000 UNIT/0.5 ML VIAL SQ SCH ×2 (08:31→21:50)
[2023-06-09] MEDS: carvediloL 25 MG TAB PO SCH ×2 (08:32→21:50)
[2023-06-09] MEDS: FERROUS GLUCONATE 324 MG TAB PO SCH (08:32)
[2023-06-09] MEDS: LOSARTAN POTASSIUM 50 MG TAB PO SCH (08:32)
[2023-06-09] MEDS: POLYETHYLENE (MIRALAX) 17 GM PACK PO SCH (08:32)
[2023-06-09] MEDS: FLUTICASONE/VILANTEROL 100/25MCG 14 PUFFS/INHALER INH SCH (08:33)
[2023-06-09] MEDS: INSULIN ASPART PER UNIT CHARGE SC SCH ×4 (08:33→21:53)
[2023-06-09] MEDS ORDERED: LORazepam 0.5 MG in SYRINGE 0.25 ML IV PRN (13:17)
--- NOTE | 2023-06-09 13:22 | Hospitalist Progress Note ---
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 Umana Patient was sent in by Dr. Umana on 06/04/23 to receive antibiotics for wound site infection; s/p revision in the OR on Saturday06/07/23, left open, wound vacc in place Hx of osteomyelitis in foot as cause of initial surgery, non suspected at this time Patient received vancomycin and Rocephin in the ED; no blood cultures prior to antibiotics being admitted Wound culture ordered, pin point growth re incubating Zosyn 4.5g IV q8h for Pseudomonas/anaerobic coverage; patient is diabetic daptomycin 4mg/kg IV q24h; hold atorvastatin Left tibia/fibula x-ray reveals no acute fracture, dislocation, or osseous erosion Wound care nurse consulted Acetaminophen now scheduled Oxycodone increased to 15 mg p.o. q6h as needed for breakthrough pain (rated 8/10 to 10/10) Parenteral hydromorphone also ordered (2) Chronic kidney disease: Plan: CKD3 chronic and stable Avoid nephrotoxic agents (3) Type 1 diabetes: Plan: Last A1c was 7.7% on 04/01/2023 Glucose 202 on arrival Patient normally takes Levemir 6u HS Lantus 6u HS while inpatient Pharmacy glycemic consult A1c 7.2 (4) Hypertension: Plan: Continue losartan, nifedipine, and carvedilol (5) PAD (peripheral artery disease): Plan: Continue clopidogrel (6) Hypothyroidism: Plan: Continue levothyroxine Plan DNR/DNI Hypokalemia augmented on 06/07/2023, now replete VTE PPx: Heparin 5000u SQ q12h Admission and Anticipated Discharge Date Admission Date: June 04, 2023 Subjective pt with significant pain when moving her left stump and touch tenderness no visable abnormality to skin no palpable abnormality, seems neuropathic Physical Exam Physical Exam: pt with significant pain on movement and exam cardiac exam is regular left bka with wound vacc in place Results & Data Results & Data Vital Signs (Past 12 Hours) Vital Signs Temp Pulse Resp BP Pulse Ox O2 Del Method 06/09/23 08:19 98.1 F 62 16 127/60 92 Room Air PG Care Time/CCT Total # of Minutes Spent Total Time Spent with Patient: Total time spent is greater than 50% in coordination of care (as documented) at patient's floor/unit and/or counseling patient: Coding Level of Care Code 70430 SUB INP/OBS CARE 235MIN Diagnoses Wound dehiscence T81.30XA Chronic kidney disease N18.9 Chronic kidney disease stage: stage 3 (moderate) Type 1 diabetes E10.9 Hypertension I10 PAD (peripheral artery disease) I73.9 Hypothyroidism E03.9 (2) Chronic kidney disease Chronic kidney disease stage: stage 3 (moderate)
[2023-06-09] MEDS: ACETAMINOPHEN 500 MG TAB PO SCH ×2 (15:03→22:11)
[2023-06-09] MEDS ORDERED: LANTUS PER UNIT CHARGE SQ SCH (21:00)
[2023-06-09] MEDS: NIFEdipine EXTENDED REL 30 MG TABCR PO SCH (21:50)
[2023-06-09] MEDS: PANTOprazole 40 MG TAB PO SCH (21:51)
[2023-06-09] MEDS: CHOLECALCIFEROL 1,000 UNITS 25 MCG TAB PO SCH (21:52)
[2023-06-10] MEDS: PIPERACILLIN/TAZOBACTAM 4.5 GM in DEXTROSE 5% MINI-B 100 ML IV SCH (02:23)
[2023-06-10] MEDS: LEVOTHYROXINE SODIUM 100 MCG TABLET PO SCH (05:52)
[2023-06-10] MEDS: oxyCODONE HCL IR 5 MG TAB (IMMEDIATE RELEASE) PO PRN ×2 (06:20→13:34)
[2023-06-10] MEDS ORDERED: LANTUS PER UNIT CHARGE SC ONE (08:00)
[2023-06-10] MEDS: DAPTOmycin 250 MG in SYRINGE 0 ML IV SCH (08:50)
[2023-06-10] MEDS: carvediloL 25 MG TAB PO SCH ×2 (08:51→20:49)
[2023-06-10] MEDS: CLOPIDOGREL BISULFATE 75 MG TAB PO SCH (08:51)
[2023-06-10] MEDS: LOSARTAN POTASSIUM 50 MG TAB PO SCH (08:51)
[2023-06-10] MEDS: SENNA 8.6 MG TAB PO SCH ×2 (08:51→20:38)
[2023-06-10] MEDS: SPIRONOLACTONE 25 MG TAB PO SCH (08:51)
[2023-06-10] MEDS: DOCUSATE SODIUM 100 MG CAP PO SCH ×2 (08:51→20:37)
[2023-06-10] MEDS: FERROUS GLUCONATE 324 MG TAB PO SCH (08:52)
[2023-06-10] MEDS: HEPARIN SOD 5,000 UNIT/0.5 ML VIAL SQ SCH ×2 (08:52→20:47)
[2023-06-10] MEDS: FLUTICASONE/VILANTEROL 100/25MCG 14 PUFFS/INHALER INH SCH (08:53)
[2023-06-10] MEDS: POLYETHYLENE (MIRALAX) 17 GM PACK PO SCH (08:53)
[2023-06-10] MEDS: ACETAMINOPHEN 500 MG TAB PO SCH ×3 (08:55→20:48)
[2023-06-10] MEDS: INSULIN ASPART PER UNIT CHARGE SC SCH ×4 (09:08→21:01)
[2023-06-10 09:27] LABS: Hematocrit (blood only) 27.7 % (37.0-47.0); Hemoglobin 9.1 g/dl (12.0-16.0); Mean Corpuscular Hemoglobin 29.8 pg (25.0-34.0); Mean Corpuscular Hgb Conc 32.9 g/dL (32.0-36.0); Mean Corpuscular Volume 90.8 fL (80.0-100.0); Mean Platelet Volume 11.4 fL (9.4-12.4); Platelet Count 174 K/uL (130-400); RDW Coefficient of Variation 15.5 % (11.5-14.5); RDW Standard Deviation 51.3 fL (36.4-46.3); Red Blood Count 3.05 M/uL (4.20-5.40); White Blood Count 5.73 K/ul (4.8-10.8)
[2023-06-10 09:44] LABS: BUN Creatinine Ratio 15.8 (10-20); Calcium 8.5 mg/dl (8.6-10.3); Creatinine Clr Calc Pharmacy 26.1 ml/min; Est GFR (African American) 34.6 ml/min; Est GFR (Non-African American) 29.8 ml/min; Potassium 3.8 mmol/L (3.5-5.1)
[2023-06-10] MEDS: cephALEXin 500 MG CAP PO SCH ×2 (10:36→20:47)
[2023-06-10] MEDS: HYDROmorphone INJ 0.5 MG/0.5 ML SYR IV PRN (11:45)
[2023-06-10] MEDS ORDERED: PREGABALIN 25 MG CAP PO ONE (12:07)
--- NOTE | 2023-06-10 13:53 | Pharmacy Report ---
Pharmacy Glycemic Short Note 2 - Date of Service June 10, 2023 - Glycemic Short BSG Results (Last 24 hours): 06/09/23 06/09/23 06/10/23 16:30 20:58 07:43 Glucose POC Glucose 159 H 201 H 239 H 06/10/23 06/10/23 09:09 11:31 Glucose 247 H POC Glucose 195 H OUTPATIENT ANTIDIABETIC REGIMEN: * Levemir 6 units * Humalog SSI ACHS HbA1c: 7.7% (04/01/23) ASSESSMENT: 06/10/23: * BSGs yesterday [phone] mg/dL * Fasting has been trending up, will trial slight increase to 8 units of basal * Continue current novolog parameters 06/07/23: * BSGs labile yesterday, ranging 79-228 mg/dL * Received 15 units of insulin (5 units of which were basal) * Fasting BSG of 112 mg/dL * NPO today for debridement of BKA stump * Do not anticipate any changes to glycemic regimen today. BSGs previously controlled on regimen similar to this one. Background: * 77 year old, type 1 diabetic presenting to ER for wound dehiscence of LLE BKA. Continues with IV antibiotics. Plan to continue home basal insulin dose. PLAN FOR INPATIENT GLYCEMIC CONTROL: * Basal insulin * Lantus 8 units SC HS * Bolus insulin * NovoLog per scale ACHS or Q6hrs while NPO * Goal Range: Low 110 mg/dL - High 150 mg/dL * Correction Factor: 30 mg/dL/unit * Nutritional / Prandial insulin per carb ratio of 1 unit per 10 grams CHO consumed
--- NOTE | 2023-06-10 14:00 | Surgery Progress Note ---
Date of Service June 10, 2023 Assessment & Plan (1) Dehiscence of amputation stump: Plan: Pt now POD #3 after wound debridement and wound vac placement. THe wound vac machine had no draiange in the canister. Upon interrogating it, there were multiple alarms recorded and it had no suction since yesterday. She also apparently had her unit replaced overnight Saturday into Saturday, for unknown reasons. Her dressing was reinforced inappropriately and the suction foam was not adherent to the wound bed. WOUnd vac dressing replaced by WOCN. Will reeval on Saturday. Admission and Anticipated Discharge Date Admission Date: June 04, 2023 Subjective 77 yo f POD #3 after LLE BKA stump debridement, seen in f/u today. Pt admits severe pain in LLE. Denies QUINTERO, fever, other complaints. Review of Systems Review of Systems: All systems reviewed & are unremarkable except as noted in HPI & below Physical Exam Constitutional: WD/WN, vitals as above Musculoskeletal: Extremities: + amputation noted (BLE BKA) Skin: LLE BKA debridement site with minimal granulation. Tissue remains pink and viable, although there is significant fat necrosis medially. WOund vac had no suction to wound. Neurologic: moves all extremities and awake; not confused Psychiatric: A+Ox3, euthymic affect Results & Data Vital Signs (Past 12 Hours) Vital Signs Temp Pulse Resp BP Pulse Ox O2 Del Method 06/10/23 07:52 36.5 C 67 18 167/72 H 94 Room Air
--- NOTE | 2023-06-10 15:51 | Hospitalist Progress Note ---
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 Umana Patient was sent in by Dr. Umana on 06/04/23 to receive antibiotics for wound site infection; s/p revision in the OR on Saturday06/07/23, left open, wound vacc in place Hx of osteomyelitis in foot as cause of initial surgery, non suspected at this time Patient received vancomycin and Rocephin in the ED; no blood cultures prior to antibiotics being admitted Wound culture ordered, pin point growth re incubating Zosyn 4.5g IV q8h for Pseudomonas/anaerobic coverage; patient is diabetic daptomycin 4mg/kg IV q24h; hold atorvastatin Left tibia/fibula x-ray reveals no acute fracture, dislocation, or osseous erosion Wound care nurse consulted Acetaminophen now scheduled Oxycodone increased to 15 mg p.o. q6h as needed for breakthrough pain (rated 8/10 to 10/10) Parenteral hydromorphone also ordered still poor pain control, one dose of lyrica seemed to have good relief, pt wishes to try again as if finally able to sleep (2) Chronic kidney disease: Plan: CKD3 chronic and remains stable Avoid nephrotoxic agents (3) Type 1 diabetes: Plan: Last A1c was 7.7% on 04/01/2023 Glucose 202 on arrival Patient normally takes Levemir 6u HS Lantus 6u HS while inpatient Pharmacy glycemic consult A1c 7.2 (4) Hypertension: Plan: Continue losartan, nifedipine, and carvedilol (5) PAD (peripheral artery disease): Plan: Continue clopidogrel (6) Hypothyroidism: Plan: Continue levothyroxine Plan DNR/DNI Hypokalemia augmented on 06/07/2023, now replete VTE PPx: Heparin 5000u SQ q12h Admission and Anticipated Discharge Date Admission Date: June 04, 2023 Subjective pt still with significant pain on underside of stump, skin very sensitive, otherwise is intact not abnormal appearing Physical Exam Physical Exam: pt with significant pain on movement and exam cardiac exam is regular left bka with wound vacc in place Results & Data Results & Data Vital Signs (Past 12 Hours) Vital Signs Temp Pulse Resp BP Pulse Ox O2 Del Method 06/10/23 14:43 97.9 F 63 16 164/58 H 96 Room Air 06/10/23 07:52 97.7 F 67 18 167/72 H 94 Room Air Laboratory Results reviewed cbc reviewed chemistry PG Care Time/CCT Total # of Minutes Spent Total Time Spent with Patient: Total time spent is greater than 50% in coordination of care (as documented) at patient's floor/unit and/or counseling patient: Coding Level of Care Code 53836 SUB INP/OBS CARE 2/35MIN Diagnoses Wound dehiscence T81.30XA Chronic kidney disease N18.9 Chronic kidney disease stage: stage 3 (moderate) Type 1 diabetes E10.9 Hypertension I10 PAD (peripheral artery disease) I73.9 Hypothyroidism E03.9 (2) Chronic kidney disease Chronic kidney disease stage: stage 3 (moderate)
[2023-06-10] MEDS ORDERED: SODIUM CHLORIDE 0.9% 500 ML IV SCH (18:15)
--- NOTE | 2023-06-10 18:17 | Hospitalist Progress Note ---
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 Umana Patient was sent in by Dr. Umana on 06/04/23 to receive antibiotics for wound site infection; s/p revision in the OR on Saturday06/07/23, left open, wound vacc in place Hx of osteomyelitis in foot as cause of initial surgery, non suspected at this time Patient received vancomycin and Rocephin in the ED; no blood cultures prior to antibiotics being admitted Wound culture ordered, pin point growth re incubating Zosyn 4.5g IV q8h for Pseudomonas/anaerobic coverage; patient is diabetic daptomycin 4mg/kg IV q24h; hold atorvastatin Left tibia/fibula x-ray reveals no acute fracture, dislocation, or osseous erosion Wound care nurse consulted Acetaminophen now scheduled Oxycodone increased to 15 mg p.o. q6h as needed for breakthrough pain (rated 8/10 to 10/10) Parenteral hydromorphone also ordered still poor pain control, one dose of lyrica seemed to have good relief, pt wishes to try again as if finally able to sleep (2) Chronic kidney disease: Plan: CKD3 chronic and small ata post op, given 500 ml NSS Avoid nephrotoxic agents (3) Type 1 diabetes: Plan: Last A1c was 7.7% on 04/01/2023 Glucose 202 on arrival Patient normally takes Levemir 6u HS Lantus 6u HS while inpatient Pharmacy glycemic consult A1c 7.2 (4) Hypertension: Plan: Continue losartan, nifedipine, and carvedilol (5) PAD (peripheral artery disease): Plan: Continue clopidogrel (6) Hypothyroidism: Plan: Continue levothyroxine Plan DNR/DNI Hypokalemia augmented on 06/07/2023, now replete VTE PPx: Heparin 5000u SQ q12h Admission and Anticipated Discharge Date Admission Date: June 04, 2023 Results & Data Results & Data Vital Signs (Past 12 Hours) Vital Signs Temp Pulse Resp BP Pulse Ox O2 Del Method 06/10/23 14:43 97.9 F 63 16 164/58 H 96 Room Air 06/10/23 07:52 97.7 F 67 18 167/72 H 94 Room Air PG Care Time/CCT Total # of Minutes Spent Total Time Spent with Patient: Total time spent is greater than 50% in coordination of care (as documented) at patient's floor/unit and/or counseling patient: Coding Level of Care Code None Diagnoses Wound dehiscence T81.30XA Chronic kidney disease N18.9 Chronic kidney disease stage: stage 3 (moderate) Type 1 diabetes E10.9 Hypertension I10 PAD (peripheral artery disease) I73.9 Hypothyroidism E03.9 (2) Chronic kidney disease Chronic kidney disease stage: stage 3 (moderate)
[2023-06-10] MEDS: PREGABALIN 25 MG CAP PO SCH (20:46)
[2023-06-10] MEDS: CHOLECALCIFEROL 1,000 UNITS 25 MCG TAB PO SCH (20:48)
[2023-06-10] MEDS: NIFEdipine EXTENDED REL 30 MG TABCR PO SCH (20:49)
[2023-06-10] MEDS: PANTOprazole 40 MG TAB PO SCH (20:50)
[2023-06-10] MEDS: LANTUS PER UNIT CHARGE SQ SCH (21:01)
[2023-06-11] MEDS: HYDROmorphone INJ 0.5 MG/0.5 ML SYR IV PRN (03:00)
[2023-06-11] MEDS: LEVOTHYROXINE SODIUM 100 MCG TABLET PO SCH (05:32)
[2023-06-11] MEDS: oxyCODONE HCL IR 5 MG TAB (IMMEDIATE RELEASE) PO PRN ×3 (06:10→21:26)
[2023-06-11] MEDS: carvediloL 25 MG TAB PO SCH ×2 (08:03→20:21)
[2023-06-11] MEDS: ACETAMINOPHEN 500 MG TAB PO SCH ×3 (08:03→20:21)
[2023-06-11] MEDS: FERROUS GLUCONATE 324 MG TAB PO SCH (08:04)
[2023-06-11] MEDS: FLUTICASONE/VILANTEROL 100/25MCG 14 PUFFS/INHALER INH SCH ×2 (08:04→08:16)
[2023-06-11] MEDS: LOSARTAN POTASSIUM 50 MG TAB PO SCH (08:04)
[2023-06-11] MEDS: CLOPIDOGREL BISULFATE 75 MG TAB PO SCH (08:04)
[2023-06-11] MEDS: HEPARIN SOD 5,000 UNIT/0.5 ML VIAL SQ SCH ×2 (08:05→20:22)
[2023-06-11] MEDS: DOCUSATE SODIUM 100 MG CAP PO SCH ×2 (08:05→20:18)
[2023-06-11] MEDS: SPIRONOLACTONE 25 MG TAB PO SCH (08:06)
[2023-06-11] MEDS: cephALEXin 500 MG CAP PO SCH ×4 (08:06→20:21)
[2023-06-11] MEDS: SENNA 8.6 MG TAB PO SCH ×2 (08:06→20:18)
[2023-06-11] MEDS: POLYETHYLENE (MIRALAX) 17 GM PACK PO SCH (08:07)
[2023-06-11] MEDS: PREGABALIN 25 MG CAP PO SCH ×2 (08:10→20:23)
[2023-06-11 08:33] LABS: Hematocrit (blood only) 28.4 % (37.0-47.0); Hemoglobin 9.1 g/dl (12.0-16.0); Mean Corpuscular Hemoglobin 29.4 pg (25.0-34.0); Mean Corpuscular Volume 91.9 fL (80.0-100.0); Mean Platelet Volume 11.9 fL (9.4-12.4); Platelet Count 188 K/uL (130-400); RDW Coefficient of Variation 15.7 % (11.5-14.5); RDW Standard Deviation 52.6 fL (36.4-46.3); Red Blood Count 3.09 M/uL (4.20-5.40); White Blood Count 5.32 K/ul (4.8-10.8)
[2023-06-11 08:38] LABS: BUN Creatinine Ratio 17.7 (10-20); Calcium 8.5 mg/dl (8.6-10.3); Creatinine Clr Calc Pharmacy 30.5 ml/min; Est GFR (African American) 41.8 ml/min; Est GFR (Non-African American) 36.1 ml/min; Potassium 3.5 mmol/L (3.5-5.1)
[2023-06-11] MEDS: INSULIN ASPART PER UNIT CHARGE SC SCH ×4 (08:59→21:27)
--- NOTE | 2023-06-11 15:40 | Hospitalist Progress Note ---
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 Umana Patient was sent in by Dr. Umana on 06/04/23 to receive antibiotics for wound site infection; s/p revision in the OR on Saturday06/07/23, left open, wound vacc in place Hx of osteomyelitis in foot as cause of initial surgery, non suspected at this time Patient received vancomycin and Rocephin in the ED; no blood cultures prior to antibiotics being admitted Wound culture ordered, pin point growth re incubating wounds grew mssa, changes to Keflex PO Left tibia/fibula x-ray reveals no acute fracture, dislocation, or osseous erosion Wound care nurse consulted Acetaminophen now scheduled Oxycodone increased to 15 mg p.o. q6h as needed for breakthrough pain (rated 8/10 to 10/10) Parenteral hydromorphone also ordered improved neuropathic pain with lyrica, good relief, no adverse reactions at this time (2) Chronic kidney disease: Plan: CKD3 chronic and small ata post op, given 500 ml NSS Avoid nephrotoxic agents (3) Type 1 diabetes: Plan: Last A1c was 7.7% on 04/01/2023 Glucose 202 on arrival Patient normally takes Levemir 6u HS Lantus 6u HS while inpatient Pharmacy glycemic consult A1c 7.2 (4) Hypertension: Plan: Continue losartan, nifedipine, and carvedilol (5) PAD (peripheral artery disease): Plan: Continue clopidogrel (6) Hypothyroidism: Plan: Continue levothyroxine Plan DNR/DNI Hypokalemia augmented on 06/07/2023, now replete VTE PPx: Heparin 5000u SQ q12h Admission and Anticipated Discharge Date Admission Date: June 04, 2023 Results & Data Results & Data Vital Signs (Past 12 Hours) Vital Signs Temp Pulse Resp BP Pulse Ox O2 Del Method 06/11/23 07:52 97.5 F L 71 16 148/52 H 93 Room Air Laboratory Results reviewed cbc reviewed chemistry PG Care Time/CCT Total # of Minutes Spent Total Time Spent with Patient: Total time spent is greater than 50% in coordination of care (as documented) at patient's floor/unit and/or counseling patient: Coding Level of Care Code 22058 SUB INP/OBS CARE 2/35MIN Diagnoses Wound dehiscence T81.30XA Chronic kidney disease N18.9 Chronic kidney disease stage: stage 3 (moderate) Type 1 diabetes E10.9 Hypertension I10 PAD (peripheral artery disease) I73.9 Hypothyroidism E03.9 (2) Chronic kidney disease Chronic kidney disease stage: stage 3 (moderate)
[2023-06-11] MEDS: CHOLECALCIFEROL 1,000 UNITS 25 MCG TAB PO SCH (20:21)
[2023-06-11] MEDS: PANTOprazole 40 MG TAB PO SCH (20:21)
[2023-06-11] MEDS: NIFEdipine EXTENDED REL 30 MG TABCR PO SCH (20:21)
[2023-06-11] MEDS: LANTUS PER UNIT CHARGE SQ SCH (21:27)
[2023-06-12] MEDS: LEVOTHYROXINE SODIUM 100 MCG TABLET PO SCH (05:21)
[2023-06-12] MEDS: ACETAMINOPHEN 500 MG TAB PO SCH ×3 (08:40→20:27)
[2023-06-12] MEDS: carvediloL 25 MG TAB PO SCH ×2 (08:41→19:40)
[2023-06-12] MEDS: cephALEXin 500 MG CAP PO SCH ×4 (08:41→20:27)
[2023-06-12] MEDS: CLOPIDOGREL BISULFATE 75 MG TAB PO SCH (08:41)
[2023-06-12] MEDS: FERROUS GLUCONATE 324 MG TAB PO SCH (08:42)
[2023-06-12] MEDS: FLUTICASONE/VILANTEROL 100/25MCG 14 PUFFS/INHALER INH SCH (08:43)
[2023-06-12] MEDS: LOSARTAN POTASSIUM 50 MG TAB PO SCH (08:43)
[2023-06-12] MEDS: HEPARIN SOD 5,000 UNIT/0.5 ML VIAL SQ SCH ×2 (08:43→20:28)
[2023-06-12] MEDS: SPIRONOLACTONE 25 MG TAB PO SCH (08:45)
[2023-06-12] MEDS: PREGABALIN 25 MG CAP PO SCH (08:45)
[2023-06-12] MEDS: SENNA 8.6 MG TAB PO SCH ×2 (08:46→20:28)
[2023-06-12] MEDS: POLYETHYLENE (MIRALAX) 17 GM PACK PO SCH (08:46)
[2023-06-12] MEDS: DOCUSATE SODIUM 100 MG CAP PO SCH ×2 (08:46→20:28)
[2023-06-12] MEDS: INSULIN ASPART PER UNIT CHARGE SC SCH ×4 (08:53→20:37)
[2023-06-12] MEDS: HYDROmorphone INJ 0.5 MG/0.5 ML SYR IV PRN (10:13)
[2023-06-12] MEDS: oxyCODONE HCL IR 5 MG TAB (IMMEDIATE RELEASE) PO PRN ×3 (10:47→23:50)
--- NOTE | 2023-06-12 16:53 | Hospitalist Progress Note ---
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 Umana Patient was sent in by Dr. Umana on 06/04/23 to receive antibiotics for wound site infection; s/p revision in the OR on Saturday06/07/23, left open, wound vacc in place Hx of osteomyelitis in foot as cause of initial surgery, non suspected at this time Patient received vancomycin and Rocephin in the ED; no blood cultures prior to antibiotics being admitted Wound culture ordered, pin point growth re incubating wounds grew mssa, changes to Keflex PO Left tibia/fibula x-ray reveals no acute fracture, dislocation, or osseous erosion Wound care nurse consulted, wound vacc place post op, changed 06/12/23 Acetaminophen now scheduled Oxycodone increased to 15 mg p.o. q6h as needed for breakthrough pain (rated 8/10 to 10/10) Parenteral hydromorphone also ordered improved neuropathic pain with lyrica, increased dose 06/12/23 no adverse reactions at this time (2) Chronic kidney disease: Plan: CKD3 chronic and small ata post op, given 500 ml NSS Avoid nephrotoxic agents (3) Type 1 diabetes: Plan: Last A1c was 7.7% on 04/01/2023 Glucose 202 on arrival Patient normally takes Levemir 6u HS Lantus 6u HS while inpatient Pharmacy glycemic consult A1c 7.2 (4) Hypertension: Plan: Continue losartan, nifedipine, and carvedilol (5) PAD (peripheral artery disease): Plan: Continue clopidogrel (6) Hypothyroidism: Plan: Continue levothyroxine Plan DNR/DNI Hypokalemia augmented on 06/07/2023, now replete VTE PPx: Heparin 5000u SQ q12h Admission and Anticipated Discharge Date Admission Date: June 04, 2023 disposition to snf, need to coordinate wound vacc and wound care follow up Subjective Pt pain is improved with lyrica the pt would like to try a higher dose wound vacc changes and appearance of would looks satisfactory to vascular surgery need to coordinate with snf for would care and VACC Physical Exam Physical Exam: pt with improved but continued pain on movement and exam cardiac exam is regular left bka with wound vacc in place skin is still without change that is the spot of most of her pain Results & Data Results & Data Vital Signs (Past 12 Hours) Vital Signs Temp Pulse Resp BP Pulse Ox O2 Del Method 06/12/23 15:34 98.1 F 60 16 171/62 H 94 Room Air 06/12/23 07:55 97.5 F L 62 16 158/58 H 92 Room Air 06/12/23 07:30 Room Air PG Care Time/CCT Total # of Minutes Spent Total Time Spent with Patient: Total time spent is greater than 50% in coordination of care (as documented) at patient's floor/unit and/or counseling patient: Coding Level of Care Code 54557 SUB INP/OBS CARE 2/35MIN Diagnoses Wound dehiscence T81.30XA Chronic kidney disease N18.9 Chronic kidney disease stage: stage 3 (moderate) Type 1 diabetes E10.9 Hypertension I10 PAD (peripheral artery disease) I73.9 Hypothyroidism E03.9 (2) Chronic kidney disease Chronic kidney disease stage: stage 3 (moderate)
[2023-06-12] MEDS: NIFEdipine EXTENDED REL 30 MG TABCR PO SCH (19:40)
[2023-06-12] MEDS: CHOLECALCIFEROL 1,000 UNITS 25 MCG TAB PO SCH (20:27)
[2023-06-12] MEDS: PANTOprazole 40 MG TAB PO SCH (20:28)
[2023-06-12] MEDS: PREGABALIN 50 MG CAP PO SCH (20:30)
[2023-06-12] MEDS: LANTUS PER UNIT CHARGE SQ SCH (20:35)
[2023-06-13] MEDS: LEVOTHYROXINE SODIUM 100 MCG TABLET PO SCH (06:01)
[2023-06-13] MEDS: cephALEXin 500 MG CAP PO SCH ×4 (09:03→21:57)
[2023-06-13] MEDS: carvediloL 25 MG TAB PO SCH ×2 (09:03→21:58)
[2023-06-13] MEDS: ACETAMINOPHEN 500 MG TAB PO SCH ×3 (09:03→21:57)
[2023-06-13] MEDS: DOCUSATE SODIUM 100 MG CAP PO SCH ×2 (09:04→22:32)
[2023-06-13] MEDS: SENNA 8.6 MG TAB PO SCH ×2 (09:04→21:35)
[2023-06-13] MEDS: POLYETHYLENE (MIRALAX) 17 GM PACK PO SCH (09:04)
[2023-06-13] MEDS: SPIRONOLACTONE 25 MG TAB PO SCH (09:04)
[2023-06-13] MEDS: LOSARTAN POTASSIUM 50 MG TAB PO SCH (09:05)
[2023-06-13] MEDS: FERROUS GLUCONATE 324 MG TAB PO SCH (09:05)
[2023-06-13] MEDS: FLUTICASONE/VILANTEROL 100/25MCG 14 PUFFS/INHALER INH SCH (09:05)
[2023-06-13] MEDS: CLOPIDOGREL BISULFATE 75 MG TAB PO SCH (09:05)
[2023-06-13] MEDS: HEPARIN SOD 5,000 UNIT/0.5 ML VIAL SQ SCH ×2 (09:06→21:57)
[2023-06-13] MEDS: PREGABALIN 50 MG CAP PO SCH ×2 (09:09→21:58)
[2023-06-13] MEDS: INSULIN ASPART PER UNIT CHARGE SC SCH ×4 (09:14→21:56)
[2023-06-13] MEDS: oxyCODONE HCL IR 5 MG TAB (IMMEDIATE RELEASE) PO PRN ×2 (13:06→21:57)
--- NOTE | 2023-06-13 15:17 | Hospitalist Progress Note ---
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 Umana Patient was sent in by Dr. Umana on 06/04/23 to receive antibiotics for wound site infection; s/p revision in the OR on Saturday06/07/23, left open, wound vacc in place Hx of osteomyelitis in foot as cause of initial surgery, not suspected at this time Patient received vancomycin and Rocephin in the ED; no blood cultures prior to antibiotics being admitted Wound culture ordered, pin point growth re incubating wounds grew mssa, changes to Keflex PO complete 2 week course LD 06/18/23 Left tibia/fibula x-ray reveals no acute fracture, dislocation, or osseous erosion Wound care nurse consulted, wound vacc place post op, changed 06/12/23 Acetaminophen now scheduled Oxycodone increased to 15 mg p.o. q6h as needed for breakthrough pain (rated 8 /10 to 10/10) Parenteral hydromorphone also ordered most improved neuropathic pain with lyrica, increased dose 06/12/23 no adverse reactions at this time (2) Chronic kidney disease: Plan: CKD3 chronic and small ata post op, given 500 ml NSS Avoid nephrotoxic agents repeat renal function check 06/14 (3) Type 1 diabetes: Plan: Last A1c was 7.7% on 04/01/2023 Glucose 202 on arrival Patient normally takes Levemir 6u HS Lantus 6u HS while inpatient Pharmacy glycemic consult A1c 7.2 (4) Hypertension: Plan: Continue losartan, nifedipine, and carvedilol (5) PAD (peripheral artery disease): Plan: Continue clopidogrel (6) Hypothyroidism: Plan: Continue levothyroxine Plan DNR/DNI Hypokalemia replete VTE PPx: Heparin 5000u SQ q12h Admission and Anticipated Discharge Date Admission Date: June 04, 2023 Subjective Pt pain is improved with increased dose of lyrica wound vacc changes and appearance of would looks satisfactory to vascular surgery need to coordinate with snf for would care and [facility] can manage there with occasional appointments to wound care clinic Physical Exam Physical Exam: awake alert and appropriate, wound vacc inplace less painful distal stump Results & Data Results & Data Vital Signs (Past 12 Hours) Vital Signs Temp Pulse Resp BP BP Pulse Ox O2 Del Method 06/13/23 09:00 Room Air 06/13/23 09:00 79 163/69 H 06/13/23 08:13 98.4 F 63 16 171/71 H 93 Room Air PG Care Time/CCT Total # of Minutes Spent Total Time Spent with Patient: Total time spent is greater than 50% in coordination of care (as documented) at patient's floor/unit and/or counseling patient: Coding Level of Care Code 66174 SUB INP/OBS CARE 2/35MIN Diagnoses Wound dehiscence T81.30XA Chronic kidney disease N18.9 Chronic kidney disease stage: stage 3 (moderate) Type 1 diabetes E10.9 Hypertension I10 PAD (peripheral artery disease) I73.9 Hypothyroidism E03.9 (2) Chronic kidney disease Chronic kidney disease stage: stage 3 (moderate)
[2023-06-13] MEDS ORDERED: LANTUS PER UNIT CHARGE SQ SCH (21:00)
[2023-06-13] MEDS: PANTOprazole 40 MG TAB PO SCH (21:57)
[2023-06-13] MEDS: CHOLECALCIFEROL 1,000 UNITS 25 MCG TAB PO SCH (21:57)
[2023-06-13] MEDS: NIFEdipine EXTENDED REL 30 MG TABCR PO SCH (21:58)
[2023-06-14] MEDS: LEVOTHYROXINE SODIUM 100 MCG TABLET PO SCH (06:06)
[2023-06-14 07:10] LABS: Hematocrit (blood only) 27.4 % (37.0-47.0); Hemoglobin 8.7 g/dl (12.0-16.0); Mean Corpuscular Hemoglobin 29.7 pg (25.0-34.0); Mean Corpuscular Hgb Conc 31.8 g/dL (32.0-36.0); Mean Corpuscular Volume 93.5 fL (80.0-100.0); Mean Platelet Volume 11.3 fL (9.4-12.4); Platelet Count 199 K/uL (130-400); RDW Coefficient of Variation 15.8 % (11.5-14.5); RDW Standard Deviation 53.9 fL (36.4-46.3); Red Blood Count 2.93 M/uL (4.20-5.40); White Blood Count 5.36 K/ul (4.8-10.8)
[2023-06-14 07:29] LABS: Calcium 8.4 mg/dl (8.6-10.3)
[2023-06-14 07:35] LABS: BUN Creatinine Ratio 22.3 (10-20); Creatinine Clr Calc Pharmacy 33.1 ml/min; Est GFR (African American) 46.2 ml/min; Est GFR (Non-African American) 39.8 ml/min
[2023-06-14] MEDS: CLOPIDOGREL BISULFATE 75 MG TAB PO SCH (08:28)
[2023-06-14] MEDS: SPIRONOLACTONE 25 MG TAB PO SCH (08:28)
[2023-06-14] MEDS: FERROUS GLUCONATE 324 MG TAB PO SCH (08:28)
[2023-06-14] MEDS: cephALEXin 500 MG CAP PO SCH ×2 (08:29→12:13)
[2023-06-14] MEDS: LOSARTAN POTASSIUM 50 MG TAB PO SCH (08:30)
[2023-06-14] MEDS: FLUTICASONE/VILANTEROL 100/25MCG 14 PUFFS/INHALER INH SCH (08:30)
[2023-06-14] MEDS: POLYETHYLENE (MIRALAX) 17 GM PACK PO SCH (08:31)
[2023-06-14] MEDS: DOCUSATE SODIUM 100 MG CAP PO SCH (08:31)
[2023-06-14] MEDS: SENNA 8.6 MG TAB PO SCH (08:32)
[2023-06-14] MEDS: PREGABALIN 50 MG CAP PO SCH (08:39)
[2023-06-14] MEDS: HYDROmorphone INJ 0.5 MG/0.5 ML SYR IV PRN (08:45)
[2023-06-14] MEDS: carvediloL 25 MG TAB PO SCH (08:48)
[2023-06-14] MEDS: HEPARIN SOD 5,000 UNIT/0.5 ML VIAL SQ SCH ×2 (08:49→09:36)
[2023-06-14] MEDS: INSULIN ASPART PER UNIT CHARGE SC SCH ×2 (08:51→12:34)
[2023-06-14] MEDS: ACETAMINOPHEN 500 MG TAB PO SCH (09:37)
--- NOTE | 2023-06-14 11:29 | Surgery Progress Note ---
Date of Service June 14, 2023 Assessment & Plan (1) Dehiscence of amputation stump: Plan: Pt now s/p wound debridement and wound vac placement. Wound vac changed today, wound appears improving. OK for d/c from vascular standpoint, will see in office in 2 weeks. Pt aware. Admission and Anticipated Discharge Date Admission Date: June 04, 2023 Subjective 77 yo f s/p LLE BKA stump debridement, seen in f/u today. Pt states the pain is improved considerably. States she had urinary retention earlier today and required straight cath. No other complaints. Review of Systems Review of Systems: All systems reviewed & are unremarkable except as noted in HPI & below Physical Exam Constitutional: WD/WN, vitals as above + thin, cooperative and comfortable; not in distress Musculoskeletal: Extremities: + amputation noted (BLE BKA) Skin: + incision (LLE BKA wound with good gran ulation, no necrosis, no significant draiange) Psychiatric: A+Ox3, euthymic affect Results & Data Vital Signs (Past 12 Hours) Vital Signs Temp Pulse Pulse Resp BP BP Pulse Ox 06/14/23 08:42 70 178/69 H 06/14/23 07:30 36.8 C 59 L 16 152/60 H 94 06/14/23 00:05 64 204/72 H O2 Del Method 06/14/23 08:42 06/14/23 07:30 Room Air 06/14/23 00:05
[2023-06-14] MEDS: oxyCODONE HCL IR 5 MG TAB (IMMEDIATE RELEASE) PO PRN (12:02)
--- NOTE | 2023-06-14 19:32 | Discharge Summary ---
Date of Service June 14, 2023 Admission HPI Per Admitting Provider Trista is a pleasant 77yo female with PMH of T1DM, RLE BKA, s/p recent LLE BKA on 04/11/23, PAD, HTN, and hypothyroidism. She presented for wound dehiscence of her LLE BKA on the morning of 06/04. She reports that her left lower extremity pain started on Thursday 05/31 at the wound site. She describes it as an achy, intermittent pain, with occasional sharp stabbing. Rated 8/10 at present. She has been taking Tylenol (500 mg) x 2 tablets BID, as well as oxycodone (5 mg) 2- 3 tabs at night, which helps. No radiation up the leg. Moving the leg somewhat alleviates her pain. The patient saw Dr. Umana on 06/04, who requested that the patient go to the ED; the patient also reports that Dr. Umana did mention doing a revision this Wednesday 06/07. The patient denies smoking, alcohol use. She is hypertensive at 200/77 at time of admission; vitals otherwise stable. ED course: Vancomycin 1000 mg IV Rocephin 2000 mg IV ROS: Patient endorses headache, left lower extremity pain at the incision site, and vomiting/diarrhea on Saturday (resolved). Patient denies fever, chills, night sweats, dizziness, lightheadedness, CP, pleuritic CP, SOB, abdominal pain, nausea, or numbness or tingling in the leg. Principal Diagnosis Left lower extremity stump wound dehiscence Discharge Exam in general she is awake and alert pleasant no distress. Has a wound VAC in place on her left lower extremity wound with no surrounding erythema or exudate. Breathing unlabored no accessory muscle use good effort. Skin shows no rashes no pallor or icterus. Neuro without focal deficits Discharge Data Allergies Allergy/AdvReac Type Severity Reaction Status Date / Time enflurane Allergy Severe nausea, Verified 06/04/23 18:50 jaundiced Iodinated Contrast Media Allergy Intermediate Hives- IVP Verified 06/04/23 18:50 dye CHECO Inhibitors Allergy Mild hives Verified 06/04/23 18:50 nickel Allergy Mild Redness, Verified 06/04/23 18:50 itching liraglutide [From Victoza] AdvReac Severe Severe Verified 06/04/23 18:50 nausea gabapentin AdvReac Intermediate Confusion Verified 06/04/23 18:50 Consultations 06/04/23 18:22 ED Decision to Admit Stat 06/04/23 20:41 Consult Vascular Surgery Routine Procedures Performed Operation Date: 06/07/23 10:20 Actual Procedures p Debridement of skin and soft tissue left knee and Application of Wound Vac (Left) - Wesley Umana MD Hospital Course (1) Wound dehiscence: S/p LLE BKA on 04/11/[address] Umana Patient was sent in by Dr. Umana on 06/04/23 to receive antibiotics for wound site infection; s/p revision in the OR on Saturday06/07/23, left open, wound vacc in place Hx of osteomyelitis in foot as cause of initial surgery, not suspected at this time Patient received vancomycin and Rocephin in the ED; no blood cultures prior to antibiotics being admitted Wound culture ordered, pin point growth re incubating wounds grew mssa, changes to Keflex PO complete 2 week course LD 06/18/23 Left tibia/fibula x-ray reveals no acute fracture, dislocation, or osseous erosion Wound care nurse consulted, wound vacc place post op, changed 06/12/23 Oxycodone increased to 15 mg p.o. q6h as needed for breakthrough pain most improved neuropathic pain with lyrica, last increased dose 06/12/23 no adverse reactions at this time (2) Chronic kidney disease: CKD3 chronic and small ata post op, given 500 ml NSS Avoid nephrotoxic agents f/u BMP as outpt (3) Type 1 diabetes: Last A1c was 7.7% on 04/01/2023 outpt insulin management (4) Hypertension: Continue losartan, nifedipine, and carvedilol (5) PAD (peripheral artery disease): Continue clopidogrel (6) Hypothyroidism: Continue levothyroxine Plan DNR/DNI for [facility] today VTE PPx: Heparin 5000u SQ q12h Total Time Total Time Spent Total Time Spent (In Minutes): <30 Discharge Plan Discharge Items Patient Disposition: Transfer Shelter Fac Reason For Visit: WOUND DEHISCENCE AT LLE BKA SITE Discharge Diagnosis: wound dehiscence LLE BKA - now with wound vac, improving Activity: Per Instructions section Activity Comment: per PT/OT recommendations Non-emergency contact: Primary Care Provider and Surgeon Call non-emergency contact if: you have any medication questions, your symptoms worsen, your pain is not controlled and you have a fever Follow-up/Referrals: Agustín Jarvis MD [Primary Care Provider] - Diet: Carb Consistent or DM2 Addtl Attending Provider Instructions: wound care / ongoing wound vac management with wound team antibiotics with keflex 500mg QID through 06/18/23 pain control with oxycodone 15mg q6hr prn pain / prior to wound dressing changes (wean as possible/as tolerated as she heals) has had some urinary retention - but if possible would want to avoid lugo re- insertion -currently straight cath q6hrs prn retention Pending Studies at Discharge: No Stand-Alone Forms: My [facility] Skilled Items Patient informed of condition?: Yes DNR: Yes Discharge Level of Care: Skilled Communicable Disease: No Discharge Prognosis: Improving Lines: None Urinary Catheter: No Medications and DC Order Prescriptions: New polyethylene glycol 3350 [Miralax] 17 gram Powder In Packet 17 g PO DAILY Qty: 30 0RF cephalexin 500 mg Capsule 500 mg PO QID Qty: 18 0RF oxycodone 5 mg Tablet 15 mg PO Q6H PRN (Reason: pain) Qty: 10 0RF pregabalin [Lyrica] 50 mg Capsule 50 mg PO BID Qty: 60 0RF Continued Glucagon (HCl) Emergency Kit 1 mg recon soln 1 mg subcut Q20M PRN (Reason: hypoglycemia) Qty: 1 0RF Rx Instructions: until target blood sugar attained atorvastatin 80 mg tablet 80 mg PO QPM Qty: 90 3RF clopidogrel [Plavix] 75 mg tablet 75 mg PO QAM Qty: 90 3RF docusate sodium [Dulcolax Stool Softener (dss)] 100 mg capsule 100 mg PO BID carvedilol [Coreg] 25 mg tablet 25 mg PO BID Qty: 180 3RF nifedipine 60 mg tablet extended release 60 mg PO HS Qty: 90 3RF acetaminophen [Tylenol Extra Strength] 500 mg Tablet 1,000 mg PO Q8H PRN (Reason: fever or pain) Qty: 30 0RF insulin lispro [Humalog U-100 Insulin] 100 unit/mL Solution 1 sliding scale dose SUBCUT ACHS Qty: 10 0RF Patient Comments: 1 unit per 7 grams of carbs; unsure of CF Rx Instructions: --Goal BSG Range: Low 120 mg/dL, High 150 mg/dL --Correction Factor: 35 mg/dL/unit --Carbohydrate ratio = 12 g/unit --BSGs ACHS if eating, q6h if npo levothyroxine 100 mcg tablet See Rx Instructions .ROUTE .COMPLEX Rx Instructions: TAKES 100 MCG ON SATURDAY THROUGH SATURDAY, THEN 200 MCG ON SAT & SUN. Levemir U-100 Insulin 100 unit/mL solution 6 unit SQ HS Qty: 1 0RF nystatin 100,000 unit/gram powder 1 applic topical BID PRN (Reason: Skin Irritation) cholecalciferol (vitamin D3) [Vitamin D3] 25 mcg (1,000 unit) capsule 1,000 unit PO HS Dulera 200-5 mcg/actuation HFA aerosol inhaler 2 puff inhalation BID PRN (Reason: Shortness Of Breath) losartan 100 mg Tablet 100 mg PO QAM spironolactone 50 mg Tablet 50 mg PO QAM Hold Instructions: Resume on 05/20/23. Please hold until resumed by Nephrology omeprazole 20 mg capsule,delayed release(DR/EC) 20 mg PO HS ferrous gluconate 324 mg (37.5 mg iron) tablet 324 mg PO QAM Discontinued oxycodone 5 mg tablet 5 mg PO Q6H MDD 4 PRN (Reason: moderate-severe pain) Qty: 120 0RF Discharge Orders: Discharge Order (Routine); Ordered 06/14/23 Ordered By: Hesham Mcclellan Admission Data Admit Date/Time: 06/04/23 19:27 Attending Provider: Hesham Mcclellan Admit Provider: Sebastián Ramey Primary Care Provider: Agustín Jarvis Other Providers: Sebastián Ramey; Wesley Umana; Berkley Kenyon Other Interventions: Discharge Summary Assessment (RN) Last Done: 06/14/23 12:09 Coding Level of Care Code 00486 IN/OBS DISCH 30 MIN/LESS Diagnoses Wound dehiscence T81.30XA Chronic kidney disease N18.9 Chronic kidney disease stage: stage 3 (moderate) Type 1 diabetes E10.9 Hypertension I10 PAD (peripheral artery disease) I73.9 Hypothyroidism E03.9
== END 2023-06-14 13:05 | DRG 464 ==
LOC: SUATTDRO → ED 14:20 → EDINP 19:27 → SUATTDRO 19:27 → 3N 20:42
DX: N17.9 Acute kidney failure, unspecified; Z79.4 Long term (current) use of insulin; Z79.02 Long term (current) use of antithrombotics/antiplatelets; I12.9 Hypertensive chronic kidney disease with stage 1 through stage 4 chronic kidney disease, or unspecified chronic kidney disease; E10.22 Type 1 diabetes mellitus with diabetic chronic kidney disease; Z91.041 Radiographic dye allergy status; N18.30 Chronic kidney disease, stage 3 unspecified; Y92.019 Unspecified place in single-family (private) house as the place of occurrence of the external cause; Z66 Do not resuscitate; Y83.5 Amputation of limb(s) as the cause of abnormal reaction of the patient, or of later complication, without mention of misadventure at the time of the procedure; Z79.890 Hormone replacement therapy; Z89.512 Acquired absence of left leg below knee; I73.9 Peripheral vascular disease, unspecified; D64.9 Anemia, unspecified; B95.62 Methicillin resistant Staphylococcus aureus infection as the cause of diseases classified elsewhere; E10.65 Type 1 diabetes mellitus with hyperglycemia; Z86.16 Personal history of COVID-19; E03.9 Hypothyroidism, unspecified; E10.51 Type 1 diabetes mellitus with diabetic peripheral angiopathy without gangrene; T87.81 Dehiscence of amputation stump

== ENCOUNTER 2023-07-23 05:42 | Inpatient (IN) ==
--- NOTE | 2023-07-17 13:56 | PAT Medication Instructions ---
Medication Instructions Date of Service July 17, 2023 Home Medications Medication Instructions Recorded glucagon HCl 1 mg solution for 1 mg subcut Q20M PRN hypoglycemia 06/29/21 injection (Glucagon (HCl) #1 ea Emergency Kit) atorvastatin 80 mg tablet 80 mg PO QPM #90 tabs 02/23/22 clopidogrel 75 mg tablet (Plavix) 75 mg PO QAM #90 tabs 07/12/22 carvedilol 25 mg tablet (Coreg) 25 mg PO BID #180 tabs 01/23/23 acetaminophen 500 mg tablet 1,000 mg (2 x 500 mg) PO Q8H PRN 02/15/23 (Tylenol Extra Strength) fever or pain #30 tabs insulin lispro 100 unit/mL 1 sliding scale dose subcut ACHS 02/15/23 subcutaneous solution (Humalog #10 mL U-100 Insulin) nifedipine 60 mg tablet,extended 60 mg PO HS #90 tabs 03/04/23 release insulin detemir U-100 100 unit/mL 6 unit (0.06 mL) subcut HS #1 mL 04/18/23 subcutaneous solution (Levemir U-100 Insulin) oxycodone 5 mg tablet 15 mg (3 x 5 mg) PO Q6H PRN pain 06/14/23 #10 tabs polyethylene glycol 3350 17 gram 17 g PO DAILY #30 ea 06/14/23 oral powder packet (Miralax) glucagon HCl 1 mg solution for injection (Glucagon (HCl) Emergency Kit) 1 mg subcut Q20M PRN hypoglycemia atorvastatin 80 mg tablet 80 mg PO QPM cholecalciferol (vitamin D3) 25 mcg (1,000 unit) capsule (Vitamin D3) 1,000 unit PO HS clopidogrel 75 mg tablet (Plavix) 75 mg PO QAM mometasone-formoterol HFA 200 mcg-5 mcg/actuation aerosol inhaler (Dulera) 2 puff inhalation BID PRN Shortness Of Breath carvedilol 25 mg tablet (Coreg) 25 mg PO BID docusate sodium 100 mg capsule (Dulcolax Stool Softener (docusate)) 100 mg PO BID acetaminophen 500 mg tablet (Tylenol Extra Strength) 1,000 mg (2 x 500 mg) PO Q8H PRN fever or pain insulin lispro 100 unit/mL subcutaneous solution (Humalog U-100 Insulin) 1 sliding scale dose subcut ACHS nifedipine 60 mg tablet,extended release 60 mg PO HS ferrous gluconate 324 mg (37.5 mg iron) tablet 324 mg PO QAM losartan 100 mg tablet 100 mg PO QAM omeprazole 20 mg capsule,delayed release 20 mg PO HS spironolactone 50 mg tablet 50 mg PO QAM levothyroxine 100 mcg tablet See Rx Instructions insulin detemir U-100 100 unit/mL subcutaneous solution (Levemir U-100 Insulin) 6 unit (0.06 mL) subcut HS nystatin 100,000 unit/gram topical powder 1 applic topical BID PRN Skin Irritation oxycodone 5 mg tablet 15 mg (3 x 5 mg) PO Q6H PRN pain polyethylene glycol 3350 17 gram oral powder packet (Miralax) 17 g PO DAILY duloxetine 30 mg capsule,delayed release sprinkle 60 mg PO BID Continue as directed glucagon HCl 1 mg solution for injection (Glucagon (HCl) Emergency Kit) 1 mg subcut Q20M PRN hypoglycemia (if needed) levothyroxine 100 mcg tablet See Rx Instructions ASK your prescriber and surgeon clopidogrel 75 mg tablet (Plavix) 75 mg PO QAM STOP taking 24 hours before surgery nystatin 100,000 unit/gram topical powder 1 applic topical BID PRN Skin Irritation DO NOT take the morning of surgery docusate sodium 100 mg capsule (Dulcolax Stool Softener (docusate)) 100 mg PO BID insulin lispro 100 unit/mL subcutaneous solution (Humalog U-100 Insulin) 1 sliding scale dose subcut ACHS ferrous gluconate 324 mg (37.5 mg iron) tablet 324 mg PO QAM losartan 100 mg tablet 100 mg PO QAM spironolactone 50 mg tablet 50 mg PO QAM polyethylene glycol 3350 17 gram oral powder packet (Miralax) 17 g PO DAILY Take morning of surgery With a small sip of water, OTHERWISE NOTHING TO EAT OR DRINK AFTER MIDNIGHT: mometasone-formoterol HFA 200 mcg-5 mcg/actuation aerosol inhaler (Dulera) 2 puff inhalation BID PRN Shortness Of Breath (if needed) carvedilol 25 mg tablet (Coreg) 25 mg PO BID acetaminophen 500 mg tablet (Tylenol Extra Strength) 1,000 mg (2 x 500 mg) PO Q8H PRN fever or pain (if needed) oxycodone 5 mg tablet 15 mg (3 x 5 mg) PO Q6H PRN pain (if needed) duloxetine 30 mg capsule,delayed release sprinkle 60 mg PO BID Take evening before surgery atorvastatin 80 mg tablet 80 mg PO QPM cholecalciferol (vitamin D3) 25 mcg (1,000 unit) capsule (Vitamin D3) 1,000 unit PO HS mometasone-formoterol HFA 200 mcg-5 mcg/actuation aerosol inhaler (Dulera) 2 puff inhalation BID PRN Shortness Of Breath (if needed) carvedilol 25 mg tablet (Coreg) 25 mg PO BID docusate sodium 100 mg capsule (Dulcolax Stool Softener (docusate)) 100 mg PO BID acetaminophen 500 mg tablet (Tylenol Extra Strength) 1,000 mg (2 x 500 mg) PO Q8H PRN fever or pain (if needed) insulin lispro 100 unit/mL subcutaneous solution (Humalog U-100 Insulin) 1 sliding scale dose subcut ACHS nifedipine 60 mg tablet,extended release 60 mg PO HS omeprazole 20 mg capsule,delayed release 20 mg PO HS insulin detemir U-100 100 unit/mL subcutaneous solution (Levemir U-100 Insulin) 6 unit (0.06 mL) subcut HS oxycodone 5 mg tablet 15 mg (3 x 5 mg) PO Q6H PRN pain (if needed) duloxetine 30 mg capsule,delayed release sprinkle 60 mg PO BID Other Notes If you have any questions please call us at [phone] or [phone] or [phone] or [phone]
--- NOTE | 2023-07-17 14:30 | Anesthesiology Consultation ---
Date of Service July 17, 2023 Assessment & Plan (1) Encounter for pre-operative examination: Chart Review Chart Review: Acceptable Risk for Surgery and Patient NOT seen in Pre Admission Testing - Check BSG AM DOS Per nursing assessment- patient can sign own consents -Infectious Disease screening: Per PAT nursing assessment on 07/17/23. Patient resides at [facility]. No Covid within the facility. No known infectious disease contacts in past 10 days or current infectious disease symptoms. No recent travel outside the country. Patient to get rapid Covid test 07/22/23 (unable to do PCR test at facility). Will order [employer] for DOS History Surgery Operation Date: 07/23/23 13:00 Proposed Procedures p Left Lower Extremity Above the Knee Amputation - Wesley Umana MD Height/Weight Height: 5 ft 5 in Weight: 58.513 kg Allergies Allergy/AdvReac Type Severity Reaction Status Date / Time enflurane Allergy Severe nausea, Verified 07/17/23 13:00 jaundiced Iodinated Contrast Media Allergy Intermediate Hives- IVP Verified 07/17/23 13:00 dye CHECO Inhibitors Allergy Mild hives Verified 07/17/23 13:00 nickel Allergy Mild Redness, Verified 07/17/23 13:00 itching liraglutide [From Victoza] AdvReac Severe Severe Verified 07/17/23 13:00 nausea gabapentin AdvReac Intermediate Confusion Verified 07/17/23 13:00 Medications Home Medications Medication Instructions Recorded Confirmed Last Taken glucagon HCl 1 mg solution for 1 mg subcut Q20M PRN hypoglycemia 06/29/21 07/17/23 Unknown injection (Glucagon (HCl) #1 ea Emergency Kit) atorvastatin 80 mg tablet 80 mg PO QPM #90 tabs 02/23/22 07/17/23 06/03/23 cholecalciferol (vitamin D3) 25 1,000 unit PO HS 06/19/22 07/17/23 06/03/23 mcg (1,000 unit) capsule (Vitamin D3) clopidogrel 75 mg tablet (Plavix) 75 mg PO QAM #90 tabs 07/12/22 07/17/23 06/04/23 mometasone-formoterol HFA 200 2 puff inhalation BID PRN 12/20/22 07/17/23 02/10/23 mcg-5 mcg/actuation aerosol Shortness Of Breath inhaler (Dulera) carvedilol 25 mg tablet (Coreg) 25 mg PO BID #180 tabs 01/23/23 07/17/23 06/04/23 08:00 docusate sodium 100 mg capsule 100 mg PO BID 02/05/23 07/17/23 06/04/23 08:00 (Dulcolax Stool Softener (docusate)) acetaminophen 500 mg tablet 1,000 mg (2 x 500 mg) PO Q8H PRN 02/15/23 07/17/23 03/26/23 17:00 (Tylenol Extra Strength) fever or pain #30 tabs insulin lispro 100 unit/mL 1 sliding scale dose subcut ACHS 02/15/23 07/17/23 06/04/23 subcutaneous solution (Humalog #10 mL U-100 Insulin) nifedipine 60 mg tablet,extended 60 mg PO HS #90 tabs 03/04/23 07/17/23 06/03/23 release ferrous gluconate 324 mg (37.5 mg 324 mg PO QAM 03/20/23 07/17/23 06/04/23 iron) tablet losartan 100 mg tablet 100 mg PO QAM 03/20/23 07/17/23 06/04/23 omeprazole 20 mg capsule,delayed 20 mg PO HS 03/20/23 07/17/23 06/03/23 release spironolactone 50 mg tablet 50 mg PO QAM 03/20/23 07/17/23 06/04/23 levothyroxine 100 mcg tablet See Rx Instructions .Route .COMPLEX 04/08/23 07/17/23 06/04/23 100 MCG insulin detemir U-100 100 unit/mL 6 unit (0.06 mL) subcut HS #1 mL 04/18/23 07/17/23 06/03/23 subcutaneous solution (Levemir U-100 Insulin) nystatin 100,000 unit/gram topical 1 applic topical BID PRN Skin 06/04/23 07/17/23 Unknown powder Irritation oxycodone 5 mg tablet 15 mg (3 x 5 mg) PO Q6H PRN pain 06/14/23 07/17/23 Unknown #10 tabs polyethylene glycol 3350 17 gram 17 g PO DAILY #30 ea 06/14/23 07/17/23 Unknown oral powder packet (Miralax) duloxetine 30 mg capsule,delayed 60 mg PO BID 07/17/23 07/17/23 Unknown release sprinkle Past Medical History Medical History (Updated 07/18/23 @ 09:13 by Cheryl Ruelas PA-C) Anemia Chronic Asthma Benign essential hypertension Carotid artery stenosis s/p Left CEA (2002), right CEA (1995) Vascular monitoring (Dr. Umana) Cerebral aneurysm "very small"/under suveillance Chronic GERD Chronic kidney disease Stage III Conductive hearing loss of right ear Constipation CREST syndrome follows with PCP Deep vein thrombosis RLE DVT dx 2017; "chronic" PCP/vascular monitoring Diabetes IDDM Diverticular disease GERD (gastroesophageal reflux disease) History of MRSA infection 04/2017 (right foot - has since been amputated) > "no active infection" Hx of renal cell cancer R renal (2012) s/p right nephrectomy, no chemo/xrt Hyperlipidemia Hypertension Hypothyroidism Osteoporosis PAD (peripheral artery disease) Raynauds syndrome Renal artery stenosis Right renal stent attempted 2010, s/p right nephrectomy 2012 S/P angiogram of extremity left leg Scleroderma TMJ derangement no current issues Wound dehiscence Admitted to [facility] 06/04/23-06/14/23- had debridement with revision 06/07/[address] Umana- treated with abx Past Family History Family History Father Family hx of colon cancer Family history of diabetes mellitus Mother Lung cancer Stroke Unknown Rheumatoid arthritis Other No family history of adverse response to anesthesia No family history of bleeding disorder Past Surgical History Surgical History Below-knee amputation of right lower extremity H/O carotid endarterectomy LEFT (2002), RIGHT (1995) H/O sinus surgery History of amputation of lesser toe of right foot MULTIPLE TOE AMPUTATIONS/I&D (ALL RT TOES; all the left toes have been amputated) History of angioplasty MULTIPLE OF LE'S WITH STENTS TO LOWER EXTREMITIES PLACED History of appendectomy History of atherectomy LEFT (02/2017) History of cardiac cath 2011= NO STENTS ([facility]) History of carpal tunnel surgery right History of cataract surgery RT/LEFT History of cholecystectomy History of colonoscopy History of endoscopic sinus surgery History of esophagogastroduodenoscopy (EGD) History of hysterectomy MERYL W/ BSO History of left breast biopsy 1997 (benign) History of nephrectomy RIGHT (2012) renal cell carcinoma History of oophorectomy B/L OVARIES History of procedure for peripheral vascular disease LEFT POPLITEAL S/P PERONEAL ARTERY BYPASS 2012; RLE ANGIO WITH INTERVENTION 06/2017 History of tonsillectomy History of transmetatarsal amputation of left foot Hx of lumpectomy LEFT BREAST (BENIGN) Nausea and vomiting after administration of anesthetic agent S/P amputation right Below the knee amputation S/P trigger finger release Status post amputation of left foot through metatarsal bone Status post below knee amputation of right lower extremity Social History Smoking Status: Unknown if ever smoked Do You Dip or Chew Tobacco: No Hx Alcohol Use: No Hx Substance Use: No substance use type: does not use Lab Results Anesthesia Preop Results Results Anesthesia Widget: WBC 11.17 K/ul (4.8-10.8) H 07/17/23 Hgb 9.5 g/dl (12.0-16.0) L 07/17/23 Hct 31.1 % (37.0-47.0) L 07/17/23 Plt 366 K/uL (130-400) 07/17/23 Na 136 mmol/L (136-145) 07/17/23 K 4.5 mmol/L (3.5-5.1) 07/17/23 Cl 103 mmol/L (98-107) 07/17/23 CO2 25 mmol/L (21-32) 07/17/23 BUN 31 mg/dl (6-23) H 07/17/23 Creat 1.16 mg/dl (0.6-1.2) 07/17/23 Glucose Level 173 mg/dl (70-99(Fasting)) H 07/17/23 PT 11.8 Seconds (9.0-12.0) 07/17/23 PTT 34 Seconds (21-31) H 07/17/23 INR 1.1 (0.9-1.1) 07/17/23 HA1c 7.2 % (4.5-5.6) H 06/05/23 Blood Type O Positive 06/06/23 Antibody Screen NEGATIVE 06/06/23 Testing Laboratory Results Chronic anemia- stable from previous Elevated PTT - on Plavix- will leave to surgeon/anesthesiologist's discretion DOS if repeat PTT needed Electrocardiogram Date: 03/27/23 Findings: + NSR @ (67bpm) Normal EKG per cardio Chest X-Ray Date: 02/11/23 FINDINGS: Lung volumes are normal. Lungs are clear. There is no pneumothorax or pleural effusion. Cardiac size is normal. Mediastinal contours are normal. There is no evidence for pulmonary edema. Bilateral axillary calcifications are unchanged. IMPRESSION: No acute cardiopulmonary findings. Echocardiogram Date: 12/21/22 EF 65-70% Normal LV wall motion Moderate cLVH No significant valvular disease Other Testing Neck CTA Date: 11/10/22 Atherosclerotic disease of the very distal right sided internal carotid artery the results in stenosis measuring 60%. There is good distal flow The remainder of the vascular structures are unremarkable. There is no other significant stenosis. There is no occlusion or aneurysm Head CTA Date: 11/10/22 Atherosclerotic disease of the left vertebral artery results in stenosis measuring 70%. There is good distal flow Atherosclerotic disease of the right sided cavernous and clinoid internal carotid artery results in stenosis measuring 80%. There is good distal flow 2 x 2 mm aneurysm arising medially from the junction of the right anterior cerebral artery and anterior communicating artery. This is in the expected location of the A1 segment The remainder of the vascular structures are unremarkable. There is no other significant stenosis or aneurysm. There is no occlusion
[2023-07-23] MEDS ORDERED: EPINEPHrine INJ 1 MG/ML AMP ONE (06:25)
[2023-07-23] MEDS ORDERED: ROPIVACAINE 0.5% 5 MG/ML 30 ML VIAL ONE (06:25)
[2023-07-23] MEDS: SODIUM CHLORIDE 0.9% 1,000 ML IV SCH (06:31)
[2023-07-23 06:51] LABS: BUN Creatinine Ratio 31.9 (10-20); Calcium 8.6 mg/dl (8.6-10.3); Creatinine Clr Calc Pharmacy 36.5 ml/min; Est GFR (Non-African American) 45.7 ml/min; Potassium 4.3 mmol/L (3.5-5.1)
[2023-07-23] MEDS ORDERED: LIDOCAINE 2% 2 ML VIAL/AMP(20MG/ML) INFIL ONE (07:05)
[2023-07-23] MEDS ORDERED: PROPOFOL IV EMULSION 10 MG/ML 20 ML VIAL IV ONE ×2 (07:05→08:10)
[2023-07-23] MEDS ORDERED: fentaNYL citrate PF 100 MCG/2 ML VIAL ONE (07:06)
[2023-07-23] MEDS ORDERED: MIDAZOLAM HCL 1 MG/ML 2ML VIAL ONE (07:06)
[2023-07-23] MEDS ORDERED: ONDANSETRON INJ 2 MG/ML 2 ML VIAL IV PRN (07:28)
[2023-07-23] MEDS ORDERED: PROMETHAZINE HCL 6.25 MG in SODIUM CHLORIDE 0.9% 50 ML IV PRN (07:28)
[2023-07-23] MEDS ORDERED: FLUMAZENIL 0.1 MG/1 ML 10 ML VIAL IV PRN (07:28)
[2023-07-23] MEDS ORDERED: NALOXONE HCL 0.4 MG/1 ML VIAL/CARP IV PRN (07:28)
[2023-07-23] MEDS ORDERED: ATROPINE SULFATE 0.1 MG/ML 10ML SYR IV PRN (07:28)
[2023-07-23] MEDS ORDERED: ePHEDrine sulfate 50 MG/ML AMP IV PRN (07:28)
--- NOTE | 2023-07-23 07:32 | History & Physical Report ---
Date of Service July 23, 2023 History of Present Illness Primary Care Provider: Agustín Jarvis MD Name: BARRON ALMARAZ Patient Number: [id number] : 1945 Date of Service: 07/17/2023 Chief Complaint: _Follow-up for left leg BKA HPI: _Ms. Almaraz is an elderly female presents to Dr. Umana's vascular surgery clinic today for a follow-up appointment regarding her left leg below-knee amputation site. As you may remember the patient is status post left leg below- knee amputation performed on April 11, 2023. She subsequently required debridement of necrotic tissue and wound VAC placement on 06/07/2023. Initial postop visits in our office had indicated excellent granulation of the wound and no further sign of infection. Patient presents today stating that she has had increased pain with her wound VAC changes, increased drainage per staff at the rehab center, and slight odor. She denies any fevers, nausea, or vomiting. Current Home Meds: (Last Updated 07/17 09:39) DULoxetine (DULoxetine 30 mg oral delayed release capsule) 60 mg PO Daily NIFEdipine (NIFEdipine (Eqv-Procardia XL) 60 mg oral tablet, extended release) 60 mg PO Daily acetaminophen 500 mg prn pain atorvastatin 80 mg PO Daily carvedilol 25 mg PO bid cholecalciferol (Vitamin D3 1000 intl units oral tablet) 1,000 Int_Unit PO Daily ciprofloxacin (Cipro 500 mg oral tablet) 500 mg PO q12h clopidogrel (Plavix 75 mg oral tablet) 75 mg PO Daily docusate (docusate sodium 100 mg oral capsule) 100 mg PO bid ferrous gluconate (ferrous gluconate 324 mg (38 mg elemental iron) oral tablet) 324 mg PO Daily fluconazole (Diflucan 100 mg oral tablet) 100 mg PO Daily formoterol-mometasone (Dulera 200 mcg-5 mcg/inh inhalation aerosol) insulin detemir (Levemir) 6 units subQ qPM insulin lispro (HumaLOG KwikPen 100 units/mL injectable solution) sliding scale with meals levothyroxine 100 mcg PO Daily 200 mcg on sat and sun losartan (losartan 100 mg oral tablet) 100 mg PO Daily nystatin topical (nystatin 100,000 units/g topical powder) apply to affected areas topically bid omeprazole (omeprazole 20 mg oral delayed release tablet) 20 mg PO bid oxyCODONE (oxyCODONE 5 mg oral tablet) PRN: as needed for pain 2 tab PO q6h prn moderate pain 4-7/10, 3 tabs PO q4h severe pain 7-10/10 polyethylene glycol 3350 (MiraLax oral powder for reconstitution) 17 g PO Daily pregabalin (Lyrica 25 mg oral capsule) 25 mg PO qhs spironolactone (spironolactone 50 mg oral tablet) 50 mg PO Daily Allergies and Sensitivities: ensourane tripp(juandice) CHECO Inhibitors(Hives) CHECO Inhibitors(Swelling) IVP dye(hives) Past Medical History: Problems: Surgical wound infection S/P BKA (below knee amputation) Carotid stenosis S/P femoral-tibial bypass Peripheral artery disease Peripheral vascular disease Ulcer of heel Postop check Below knee amputation S/P transmetatarsal amputation of foot Diabetic foot ulcer Pain of right foot Hx of amputation S/P amputation of lesser toe Renal cancer S/p bilateral carotid endarterectomy Atherosclerosis Weight disorder Secondary hyperparathyroidism CKD (chronic kidney disease), stage III Cataract Vaginitis HYPERTENSION. Hyperlipidemia GERD Asthma MRSA (methicillin resistant Staphylococcus aureus) Carotid artery stenosis Thyroid disease CARMELITA (renal artery stenosis) Hypothyroid Type II diabetes mellitus OBJECTIVE Vitals: Last Updated 07/17/23 09:14 Date Temp BP Location Pulse RR SpO2 Pain 07/17/23 9 07/17/23 132/48 Right Arm 54 95 06/04/23 36.7 184/70 Right Arm 63 96 Vital Signs are the last 3 documented. No Orthostatic Data Available Height and Weight: Last Updated 04/07/20 11:16 Date BMI Wt(kg) Wt(lb) Method Ht(cm) (ft-in) Method 04/07/20 70 154 Standing Scale 07/02/19 63.1 139 06/08/19 65.3 144 Standing Scale Heights and Weights are the last 3 documented. Physical Exam Constitutional: In general patient is a healthy-appearing well-nourished well- developed elderly female in no distress. She is in wheelchair. She does have a known right leg below-knee amputation. Her left leg below-knee amputation site has a gaping wound with necrotic wound edges, significant slough, and opening it is significantly larger than her previous visit here. Wound edges are macerated, and she has erythema on medial aspect and periwound area. There is a slight odor, and moderate serosanguineous drainage from the medial end of the wound. Lungs are clear. Heart has a regular rate and rhythm. Abdominal exam is benign. ASSESSMENT: _ PLAN: _ 1 ) _status post left leg below the amputation, infected wound Patient appears to have an infection set in to her below-knee amputation site. There is increased necrotic tissue, slough, odor, widening of the wound bed, and poor healing overall. Patient was also seen by Dr. Umana today. At this point we recommended an above-knee amputation, versus debridement of her below-knee amputation site. Debridement of her BKA site would likely involve multiple surgical debridements and continuation of the wound VAC postoperatively. Patient does not wish to undergo multiple procedures, and elects to undergo an above-knee amputation. The procedure risks benefits and alternatives were discussed with the patient by myself at Dr. Umana's request. Patient expresses understanding and agreement to proceed. Her was present for today's conversation and office visit. They are advised to call any other questions or concerns. This will be scheduled next week. We will also have the patient begin taking Cipro 500 mg p.o. twice daily until her procedure next week. Thank you for letting us participate in the care of this patient. Signature Line Electronic Signature on File CC: Agustín Jarvis MD [address] [facility] [id number] * CC: Kevin Lane MD [address] [facility] [address] [facility] [address] * Electronically Reviewed/Signed by: Marzena Pastor PA-C Author Signature Dt/Tm:07/17/2023 11:05 AM [facility] [place] [place] [address] LM Result Type: HVI Outpt Note Date of Service: July 17, 2023 10:54 EST Authorization Status: Final Author or Import Date: EDILIA Pastor Lynn on July 17, 2023 11:05 EST Verified By: EDILIA Pastor Lynn on July 17, 2023 11:05 EST Encounter info: [id number], [place] [address], Clinic, 07/17/2023 - 07/17/2023 Allergies Allergy/AdvReac Type Severity Reaction Status Date / Time enflurane Allergy Severe nausea, Verified 07/23/23 06:09 jaundiced Iodinated Contrast Media Allergy Intermediate Hives- IVP Verified 07/23/23 06:09 dye CHECO Inhibitors Allergy Mild hives Verified 07/23/23 06:09 nickel Allergy Mild Redness, Verified 07/23/23 06:09 itching liraglutide [From Victoza] AdvReac Severe Severe Verified 07/23/23 06:09 nausea gabapentin AdvReac Intermediate Confusion Verified 07/23/23 06:09 Home Medications Medication Instructions Recorded Confirmed Type glucagon HCl 1 mg solution for 1 mg subcut Q20M PRN hypoglycemia 06/29/21 07/23/23 Rx injection (Glucagon (HCl) #1 ea Emergency Kit) atorvastatin 80 mg tablet 80 mg PO QPM #90 tabs 02/23/22 07/23/23 Rx cholecalciferol (vitamin D3) 25 1,000 unit PO HS 06/19/22 07/23/23 History mcg (1,000 unit) capsule (Vitamin D3) clopidogrel 75 mg tablet (Plavix) 75 mg PO QAM #90 tabs 07/12/22 07/23/23 Rx mometasone-formoterol HFA 200 2 puff inhalation BID PRN 12/20/22 07/23/23 History mcg-5 mcg/actuation aerosol Shortness Of Breath inhaler (Dulera) carvedilol 25 mg tablet (Coreg) 25 mg PO BID #180 tabs 01/23/23 07/23/23 Rx docusate sodium 100 mg capsule 100 mg PO BID 02/05/23 07/23/23 History (Dulcolax Stool Softener (docusate)) acetaminophen 500 mg tablet 1,000 mg (2 x 500 mg) PO Q8H PRN 02/15/23 07/23/23 Rx (Tylenol Extra Strength) fever or pain #30 tabs insulin lispro 100 unit/mL 1 sliding scale dose subcut ACHS 02/15/23 07/23/23 Rx subcutaneous solution (Humalog #10 mL U-100 Insulin) nifedipine 60 mg tablet,extended 60 mg PO HS #90 tabs 03/04/23 07/23/23 Rx release ferrous gluconate 324 mg (37.5 mg 324 mg PO QAM 03/20/23 07/23/23 History iron) tablet losartan 100 mg tablet 100 mg PO QAM 03/20/23 07/23/23 History omeprazole 20 mg capsule,delayed 20 mg PO HS 03/20/23 07/23/23 History release spironolactone 50 mg tablet 50 mg PO QAM 03/20/23 07/23/23 History levothyroxine 100 mcg tablet See Rx Instructions .Route .COMPLEX 04/08/23 07/23/23 History insulin detemir U-100 100 unit/mL 6 unit (0.06 mL) subcut HS #1 mL 04/18/23 07/23/23 Rx subcutaneous solution (Levemir U-100 Insulin) nystatin 100,000 unit/gram topical 1 applic topical BID PRN Skin 06/04/23 07/23/23 History powder Irritation oxycodone 5 mg tablet 15 mg (3 x 5 mg) PO Q6H PRN pain 06/14/23 07/23/23 Rx #10 tabs polyethylene glycol 3350 17 gram 17 g PO DAILY #30 ea 06/14/23 07/23/23 Rx oral powder packet (Miralax) duloxetine 30 mg capsule,delayed 60 mg PO BID 07/17/23 07/23/23 History release sprinkle Past Med/Surg History Medical History Wound dehiscence Admitted to [facility] 06/04/23-06/14/23- had debridement with revision 06/07/[address] Umana- treated with abx Constipation TMJ derangement no current issues Cerebral aneurysm "very small"/under suveillance S/P angiogram of extremity left leg Conductive hearing loss of right ear Hypothyroidism Diabetes IDDM Osteoporosis Scleroderma CREST syndrome follows with PCP Chronic GERD Benign essential hypertension Raynauds syndrome Hx of renal cell cancer R renal (2012) s/p right nephrectomy, no chemo/xrt Anemia Chronic PAD (peripheral artery disease) History of MRSA infection 04/2017 (right foot - has since been amputated) > "no active infection" Carotid artery stenosis s/p Left CEA (2002), right CEA (1995) Vascular monitoring (Dr. Umana) Renal artery stenosis Right renal stent attempted 2010, s/p right nephrectomy 2012 Diverticular disease GERD (gastroesophageal reflux disease) Chronic kidney disease Stage III Deep vein thrombosis RLE DVT dx 2017; "chronic" PCP/vascular monitoring Hyperlipidemia Hypertension Asthma Surgical History S/P trigger finger release Status post amputation of left foot through metatarsal bone Status post below knee amputation of right lower extremity History of transmetatarsal amputation of left foot History of esophagogastroduodenoscopy (EGD) S/P amputation right Below the knee amputation History of oophorectomy B/L OVARIES History of carpal tunnel surgery right History of left breast biopsy 1997 (benign) Below-knee amputation of right lower extremity H/O sinus surgery History of angioplasty MULTIPLE OF LE'S WITH STENTS TO LOWER EXTREMITIES PLACED History of procedure for peripheral vascular disease LEFT POPLITEAL S/P PERONEAL ARTERY BYPASS 2012; RLE ANGIO WITH INTERVENTION 06/2017 H/O carotid endarterectomy LEFT (2002), RIGHT (1995) History of atherectomy LEFT (02/2017) History of amputation of lesser toe of right foot MULTIPLE TOE AMPUTATIONS/I&D (ALL RT TOES; all the left toes have been amputated) History of cardiac cath 2011= NO STENTS ([facility]) Nausea and vomiting after administration of anesthetic agent Hx of lumpectomy LEFT BREAST (BENIGN) History of hysterectomy MERYL W/ BSO History of nephrectomy RIGHT (2012) renal cell carcinoma History of appendectomy History of cholecystectomy History of colonoscopy History of endoscopic sinus surgery History of cataract surgery RT/LEFT History of tonsillectomy Family History Father Family hx of colon cancer Family history of diabetes mellitus Mother Lung cancer Stroke Unknown Rheumatoid arthritis Other No family history of adverse response to anesthesia No family history of bleeding disorder Social History Smoking Status: Unknown if ever smoked Second Hand Exposure: No; Do You Dip or Chew Tobacco: No; Hx Alcohol Use: No Hx Substance Use: No Preferred Language: Icelandic Communication Ability: Effective Visual Impairment: No Limitations Hearing Ability: Normal Freight Checker Required: No Beliefs That Will Affect Care: None marital status: Current Living Situation: [facility] Current Living Situation Comment: lives in 1 story home with . home nursing 3x/week current occupational status: retired How many Children do You have: 0 How many Children do You have Comment: able to assist with care as needed. Feels Safe at Home: Yes Diet: diabetic during the past year weight has: decreased > 10 lbs Seatbelt Use: always Do you think of yourself as: straight/heterosexual Gender Identity: Female Assistive Devices: Walker and Wheelchair Results & Data Vital Signs (Past 12 Hours) Vital Signs Temp Pulse Resp BP BP Pulse Ox O2 Del Method 07/23/23 06:22 Room Air 07/23/23 06:15 36.6 C 55 L 16 125/50 L 128/53 L 98 Room Air
--- NOTE | 2023-07-23 07:32 | History & Physical Bridge Note ---
Date of Service July 23, 2023 History & Physical Bridge Note I have examined the patient, reviewed the History & Physical and in the interval since the performance of the History & Physical I have noted the following changes of clinical significance: no changes noted
[2023-07-23] MEDS ORDERED: ONDANSETRON INJ 2 MG/ML 2 ML VIAL ONE (08:10)
[2023-07-23] MEDS: fentaNYL citrate PF 100 MCG/2 ML VIAL IV PRN (09:04)
--- NOTE | 2023-07-23 09:04 | Operative Report ---
Post Operative Report Pre & Post Diagnosis Operation Date: 07/23/23 07:30 Pre-Op Diagnosis: 1 )status post left leg below the amputation, infected wound Post-Op Diagnosis: 1 )status post left leg below the amputation, infected wound I identified the patient and participated in the time-out.: Yes Procedure Operation Date: 07/23/23 07:30 Actual Procedures p Left Lower Extremity Above the Knee Amputation(Left) - Wesley Umana MD Surgeon Wesley Umana MD Supervisor Welding Equipment Repairer Devante,PAC Estimated Blood Loss 150 Findings Consistent with Post-Op Diagnosis Specimens left leg Anesthesia Type General Complications none Disposition Accompanied Patient To Recovery: No Disposition: Recovery Room Indications This is a 77-year-old female who has a left below-knee amputation which has become necrotic. We recommended a left above-knee amputation. She understood the risks option benefits and agreed to go of this procedure. Description of Procedure The patient was taken the operating placed supine position. After the left lower leg was prepped and draped in a sterile manner a timeout was performed and patient was identified. A fishmouth incision was made in the lower part of the left thigh. This was carried down to where the femur was identified. It was isolated. Using a Gigli saw the femur was then divided with an anterior bevel. The posterior flap was then performed by cutting the skin edges of the fascia below. We then used amputation knife to form the posterior flap. Once this leg was removed all bleeding was controlled with electrocautery and free ties. Once adequate hemostasis was obtained the posterior flap was brought up and the fascia approximated to the anterior fracture with interrupted number Vicryl sutures. Skin edges were approximated with a stapling device. Sterile dressings were applied. The muscle and the thigh was viable with excellent bleeding noted. The patient left the operation room in satisfactory condition and tolerated the procedure well. All needle and sponge counts were correct at the end of the procedure. Marzena Pastor Pac assisted due to lack of resident availability and was necessary for positioning, draping, retraction, wound closure deep layers, subcutaneous tissue, and skin closure and was necessary for assisting with the case. I attest to the content of the Intraoperative Record and any orders documented therein. Any exceptions are noted below.
[2023-07-23] MEDS: HYDROmorphone INJ 1 MG/ML SYRINGE IV PRN (09:26)
--- NOTE | 2023-07-23 09:58 | Anesthesiology Progress Note ---
Date of Service July 23, 2023 Anesthesia Post Procedure Vital Signs Vital Signs: Temp Pulse Pulse Resp BP BP Pulse Ox 07/23/23 09:55 59 L 17 161/65 H 99 07/23/23 09:45 60 18 157/63 H 99 07/23/23 09:35 58 L 14 149/64 H 99 07/23/23 09:25 58 L 17 150/64 H 100 07/23/23 09:15 57 L 17 148/59 H 100 07/23/23 09:05 59 L 17 138/58 L 100 07/23/23 08:55 58 L 19 131/58 L 100 07/23/23 08:45 36.4 C L 57 L 12 108/49 L 97 07/23/23 06:22 07/23/23 06:15 36.6 C 55 L 16 125/50 L 128/53 L 98 O2 Del Method O2 Flow Rate 07/23/23 09:55 Oxymask 2 07/23/23 09:45 Oxymask 2 07/23/23 09:35 Oxymask 2 07/23/23 09:25 Oxymask 2 07/23/23 09:15 Oxymask 2 07/23/23 09:05 Oxymask 4 07/23/23 08:55 Oxymask 4 07/23/23 08:45 Oxymask 4 07/23/23 06:22 Room Air 07/23/23 06:15 Room Air Pain Intensity Left Leg: Pain Intensity: 9 Transfer of Care Handoff Completed per policy Notes Mental Status: alert / awake / arousable Patient Amnestic to Procedure: Yes Nausea / Vomiting: adequately controlled Pain: adequately controlled Airway Patency, RR, SpO2: stable & adequate BP & HR: stable & adequate Hydration State: stable & adequate Anesthetic Complications: no major complications apparent
[2023-07-23] MEDS ORDERED: NON-FORMULARY MEDICATION (Glucagon Hcl [Glucagon (Hcl) Emergency Kit] 1 mg recon soln) SQ PRN (10:39)
[2023-07-23] MEDS ORDERED: ENOXAPARIN 0.5 MG/KG SQ SCH (10:39)
[2023-07-23] MEDS: MoRPHine SULFATE 4 MG/ML 1 ML CARP\\VIAL IV PRN (10:51)
[2023-07-23] MEDS: D5W AND 1/2NSS 1,000 ML IV SCH (11:18)
[2023-07-23] MEDS ORDERED: FLUTICASONE/VILANTEROL 200/25MCG 14 PUFFS/INHALER INH PRN (11:26)
[2023-07-23] MEDS ORDERED: GLUCAGON FOR INJ 1 MG VIAL IM PRN (11:30)
[2023-07-23] MEDS ORDERED: GLUCOSE 10 TAB/TUBE PO PRN (11:30)
[2023-07-23] MEDS ORDERED: CARBOHYDRATES FOR HYPOGLYCEMIA PO PRN (11:30)
[2023-07-23] MEDS ORDERED: DEXTROSE 50% 50 ML SYRINGE IV PRN (11:30)
[2023-07-23] MEDS ORDERED: GLUCOSE 40% GEL 15 GM TUBE PO PRN (11:30)
[2023-07-23] MEDS ORDERED: LEVOTHYROXINE SODIUM 100 MCG TABLET PO SCH (11:30)
[2023-07-23] MEDS: DULoxetine HCL 60 MG CAP PO SCH (11:32)
[2023-07-23] MEDS: carvediloL 25 MG TAB PO SCH (11:32)
[2023-07-23] MEDS: LOSARTAN POTASSIUM 50 MG TAB PO SCH (11:34)
[2023-07-23] MEDS: DOCUSATE SODIUM 100 MG CAP PO SCH (11:37)
[2023-07-23] MEDS: CLOPIDOGREL BISULFATE 75 MG TAB PO SCH (12:15)
[2023-07-23] MEDS: POLYETHYLENE (MIRALAX) 17 GM PACK PO SCH (12:16)
[2023-07-23] MEDS: SPIRONOLACTONE 25 MG TAB PO SCH (12:16)
[2023-07-23] MEDS: ACETAMINOPHEN 500 MG TAB PO PRN (12:30)
[2023-07-23] MEDS: FERROUS GLUCONATE 324 MG TAB PO SCH (12:31)
[2023-07-23] MEDS: LEVOTHYROXINE SODIUM 100 MCG TABLET PO SCH (12:31)
[2023-07-23] MEDS: hydrALAZINE HCL 20 MG/ML VIAL IV STA (13:11)
--- NOTE | 2023-07-23 13:34 | Communication Note ---
Date of Service: July 23, 2023 Asked to see pt d/t bleeding from LLE AKA site. Dressing removed, skin edge bleeding identified on lateral end of incision. Pressure held, then silver nitrate cautery performed and new dressing placed after bleeding stopped.
[2023-07-23] MEDS: INSULIN ASPART PER UNIT CHARGE SQ SCH (13:44)
[2023-07-23] MEDS: CEFAZOLIN 2,000 MG/15 ML SYR IV SCH (13:53)
[2023-07-23] MEDS: ceFAZolin 2000MG 2,000 MG/15 ML SYR IV SCH (14:35)
[2023-07-23] MEDS ORDERED: INSULIN GLARGINE SOLOSTAR 100 UNITS/ML 3 ML PEN SQ SCH (21:00)
[2023-07-23] MEDS: NIFEdipine EXTENDED REL 30 MG TABCR PO SCH (21:41)
[2023-07-23] MEDS: PANTOprazole 40 MG TAB PO SCH (21:41)
[2023-07-23] MEDS: CHOLECALCIFEROL 25 MCG (1000 UNITS) TAB PO SCH (21:42)
[2023-07-23] MEDS: ATORVASTATIN 40 MG TAB PO SCH (21:42)
[2023-07-23] MEDS: LANTUS PER UNIT CHARGE SQ SCH (22:24)
--- OUTSIDE RECORDS SUMMARY | 2023-07-23 23:48 | External Medical Summary ---
Author Name Unknown Address Unknown Organization [id number]:[facility] - [facility] [address] [place] [address] Laboratory Report Ordering Provider Test Date Status MALIK SHETH 07/19/2023 06:47:00 Final Observation Date Value Abnormality Reference (Units ) Status WBC, Total 07/19/2023 06:47:00 11.26 Above high normal 4.00-10.80 (K/uL) Final RBC 07/19/2023 06:47:00 3.25 3.85-5.15 (M/uL) Final Hemoglobin 07/19/2023 06:47:00 9.8 Below low normal 12.0-15.3 (g/dL) Final HCT 07/19/2023 06:47:00 29.8 Below low normal 36.0-45.2 (%) Final MCV 07/19/2023 06:47:00 91.7 81.5-97.5 (fL) Final MCH 07/19/2023 06:47:00 30.2 27.0-34.0 (pg) Final MCHC 07/19/2023 06:47:00 32.9 32.0-36.0 (g/dL) Final RDW 07/19/2023 06:47:00 14.6 11.5-15.5 (%) Final Platelets 07/19/2023 06:47:00 316 140-400 (K/uL) Final MPV 07/19/2023 06:47:00 11.2 6.6-11.1 (fL) Final Nucleated erythrocytes/100 leukocytes [Ratio] in Blood by Automated count 07/19/2023 06:47:00 0 <=0 (/100 WBCs) Final Performing Location [facility] - [address] [place] [id number]
--- OUTSIDE RECORDS SUMMARY | 2023-07-23 23:48 | External Medical Summary ---
Author Name Unknown Address Unknown Organization [id number]:[facility] - [address] [place] [id number] Laboratory Report Ordering Provider Test Date Status MALIK SHETH 07/19/2023 06:47:00 Final Observation Date Value Abnormality Reference (Units ) Status BUN 07/19/2023 06:47:00 28 Above high normal 6-20 (mg/dL) Final Creatinine 07/19/2023 06:47:00 1.0 0.5-1.0 (mg/dL) Final Glomerular filtration rate/1.73 sq M.predicted [Volume Rate/Area] in Serum, Plasma or Blood by Creatinine-based formula (CKD-EPI) 07/19/2023 06:47:00 58 Below low normal >=60 (mL/min) Final eGFR is calculated based on the CKD-EPI 2020 equation SODIUM 07/19/2023 06:47:00 137 135-146 (m mol/L) Final Potassium 07/19/2023 06:47:00 4.8 3.5-5.1 (m mol/L) Final Cl 07/19/2023 06:47:00 104 98-107 (mm ol/L) Final CO2 07/19/2023 06:47:00 24 22-32 (mmo l/L) Final Anion gap 07/19/2023 06:47:00 9 7-15 (mmol /L) Final Glucose 07/19/2023 06:47:00 158 Above high normal 70 -120 (mg/dL) Final Calcium 07/19/2023 06:47:00 8.6 8.4-10.2 ( mg/dL) Final Performing Location [facility] - [address] [place] [id number]
--- OUTSIDE RECORDS SUMMARY | 2023-07-23 23:48 | External Medical Summary | Continuity of Care Document ---
Author Name Unknown Organization [address] Address [address] [place], [place] [id number] Care Team Providers Care Account Support Associate Name Role Phone Agustín Jarvis Primary Care Physician [phone] [facility]counter [id number] Date(s): 07/17/23 - 07/17/23 [facility] [address] [place] [address] [phone] Encounter Diagnosis Below knee amputation(Discharge Diagnosis) - 07/17/23 Discharge Disposition: Home or Self Care Attending Physician: MD Umana Eugene J Referring Physician: MD Jarvis Eric K Allergies, Adverse Reactions, Alerts Substance Reaction Severity Status ensourane tripp juandice Active CHECO Inhibitors Swelling Hives Active IVP dye hives Active Assessment and Plan Extracted from: Title:Clinical Document Author:EDILIA Pastor Lynn Date:07/17/23 [facility] OUTPATIENT NOTE Name: BARRON ALMARAZ Patient Number: [id number] : 1945 Date of Service: 07/17/2023 Chief Complaint: _Follow-up for left leg BKA HPI: _Ms. Almaraz is an elderly female presents to Dr. Umana's vascular surgery clinic today for a follow-up appointment regarding her left leg below-knee amputation site. As you may remember the patient is status post left leg below-knee amputation performed on April 11, 2023. She subsequently required debridement of necrotic tissue and wound VAC placement on 06/07/2023. Initial postop visits in our office had indicated excellent granulation of the wound and no further sign of infection. Patient presents today stating that she has had increased pain with her wound VAC changes, increased drainage per staff at the rehab center, and slight odor. She denies any fevers, nausea, or vomiting. Current Home Meds: (Last Updated 07/17 09:39) DULoxetine (DULoxetine 30 mg oral delayed release capsule) 60 mg PO Daily NIFEdipine (NIFEdipine (Eqv-Procardia XL) 60 mg oral tablet, extended release) 60 mg PO Daily acetaminophen 500 mg prn pain atorvastatin 80 mg PO Daily carvedilol 25 mg PO bid cholecalciferol (Vitamin D3 1000 intl units oral tablet) 1,000 Int_Unit PO Daily ciprofloxacin (Cipro 500 mg oral tablet) 500 mg PO q12h clopidogrel (Plavix 75 mg oral tablet) 75 mg PO Daily docusate (docusate sodium 100 mg oral capsule) 100 mg PO bid ferrous gluconate (ferrous gluconate 324 mg (38 mg elemental iron) oral tablet) 324 mg PO Daily fluconazole (Diflucan 100 mg oral tablet) 100 mg PO Daily formoterol-mometasone (Dulera 200 mcg-5 mcg/inh inhalation aerosol) insulin detemir (Levemir) 6 units subQ qPM insulin lispro (HumaLOG KwikPen 100 units/mL injectable solution) sliding scale with meals levothyroxine 100 mcg PO Daily 200 mcg on sat and sun losartan (losartan 100 mg oral tablet) 100 mg PO Daily nystatin topical (nystatin 100,000 units/g topical powder) apply to affected areas topically bid omeprazole (omeprazole 20 mg oral delayed release tablet) 20 mg PO bid oxyCODONE (oxyCODONE 5 mg oral tablet) PRN: as needed for pain 2 tab PO q6h prn moderate pain 4-7/10, 3 tabs PO q4h severe pain 7-10/10 polyethylene glycol 3350 (MiraLax oral powder for reconstitution) 17 g PO Daily pregabalin (Lyrica 25 mg oral capsule) 25 mg PO qhs spironolactone (spironolactone 50 mg oral tablet) 50 mg PO Daily Allergies and Sensitivities: ensourane tripp(juandice) CHECO Inhibitors(Hives) CHECO Inhibitors(Swelling) IVP dye(hives) Past Medical History: Problems: Surgical wound infection S/P BKA (below knee amputation) Carotid stenosis S/P femoral-tibial bypass Peripheral artery disease Peripheral vascular disease Ulcer of heel Postop check Below knee amputation S/P transmetatarsal amputation of foot Diabetic foot ulcer Pain of right foot Hx of amputation S/P amputation of lesser toe Renal cancer S/p bilateral carotid endarterectomy Atherosclerosis Weight disorder Secondary hyperparathyroidism CKD (chronic kidney disease), stage III Cataract Vaginitis HYPERTENSION. Hyperlipidemia GERD Asthma MRSA (methicillin resistant Staphylococcus aureus) Carotid artery stenosis Thyroid disease CARMELITA (renal artery stenosis) Hypothyroid Type II diabetes mellitus OBJECTIVE Vitals: Last Updated 07/17/23 09:14 Date Temp BP Location Pulse RR SpO2 Pain 07/17/23 9 07/17/23 132/48 Right Arm 54 95 06/04/23 36.7 184/70 Right Arm 63 96 Vital Signs are the last 3 documented. No Orthostatic Data Available Height and Weight: Last Updated 04/07/20 11:16 Date BMI Wt(kg) Wt(lb) Method Ht(cm) (ft-in) Method 04/07/20 70 154 Standing Scale 07/02/19 63.1 139 06/08/19 65.3 144 Standing Scale Heights and Weights are the last 3 documented. Physical Exam Constitutional: In general patient is a healthy-appearing well-nourished well-developed elderly female in no distress. She is in wheelchair. She does have a known right leg below-knee amputation. Her left leg below-knee amputation site has a gaping wound with necrotic wound edges, significant slough, and opening it is significantly larger than her previous visit here. Wound edges are macerated, and she has erythema on medial aspect and periwound area. There is a slight odor, and moderate serosanguineous drainage from the medial end of the wound ASSESSMENT: _ PLAN: _ 1 ) _status post left leg below the amputation, infected wound Patient appears to have an infection set in to her below-knee amputation site. There is increased necrotic tissue, slough, odor, widening of the wound bed, and poor healing overall. Patient was also seen by Dr. Umana today. At this point we recommended an above-knee amputation, versus debridement of her below-knee amputation site. Debridement of her BKA site would likely involve multiple surgical debridements and continuation of the wound VAC postoperatively. Patient does not wish to undergo multiple procedures, and elects to undergo an above-knee amputation. The procedure risks benefits and alternatives were discussed with the patient by myself at Dr. Umana's request. Patient expresses understanding and agreement to proceed. Her was present for today's conversation and office visit. They are advised to call any other questions or concerns. This will be scheduled next week. We will also have the patient begin taking Cipro 500 mg p.o. twice daily until her procedure next week. Thank you for letting us participate in the care of this patient. Medications acetaminophen Start: 04/07/20 10:46:00 EST, 500 mg prn pain Start Date: 04/07/20 Status: Ordered atorvastatin Start: 03/17/15 15:55:00, 80 mg =, PO, Daily Start Date: 03/17/15 Status: Ordered carvedilol Start: 02/28/16 13:30:00 EDT, 25 mg =, PO, bid Start Date: 02/28/16 Status: Ordered Cipro 500 mg oral tablet Start: 07/17/23 9:38:00 EST, 1 tab, PO, q12h, Disp# 20 tab, Refills: 0, other Start Date: 07/17/23 Status: Ordered Diflucan 100 mg oral tablet Start: 06/25/23 15:09:00 EST, 1 tab, PO, Daily Start Date: 06/25/23 Status: Ordered docusate sodium 100 mg oral capsule Start: 03/11/23 13:05:00 EDT, 1 cap, PO, bid Start Date: 03/11/23 Status: Ordered Dulera 200 mcg-5 mcg/inh inhalation aerosol Start: 07/17/23 8:47:00 EST Start Date: 07/17/23 Status: Ordered DULoxetine 30 mg oral delayed release capsule Start: 07/17/23 8:48:00 EST, 2 cap, PO, Daily Start Date: 07/17/23 Status: Ordered ferrous gluconate 324 mg (38 mg elemental iron) oral tablet Start: 03/11/23 13:06:00 EDT, 1 tab, PO, Daily Start Date: 03/11/23 Status: Ordered HumaLOG KwikPen 100 units/mL injectable solution Start: 06/25/23 15:10:00 EST, See Instructions, sliding scale with meals Start Date: 06/25/23 Status: Ordered Levemir Start: 01/29/14 14:19:00 EDT, See Instructions, 6 units subQ qPM Start Date: 01/29/14 Status: Ordered levothyroxine Start: 01/28/19 13:17:00 EDT, 100 mcg =, PO, Daily, 200 mcg on sat and sun Start Date: 01/28/19 Status: Ordered losartan 100 mg oral tablet Start: 09/14/15 11:43:00, 1 tab, PO, Daily, Disp# 90, Refills: 3 Start Date: 09/14/15 Status: Ordered Lyrica 25 mg oral capsule Start: 06/25/23 15:11:00 EST, 1 cap, PO, qhs Start Date: 06/25/23 Status: Ordered MiraLax oral powder for reconstitution Start: 07/17/23 8:49:00 EST, 17 g =, PO, Daily Start Date: 07/17/23 Status: Ordered NIFEdipine (Eqv-Procardia XL) 60 mg oral tablet, extended release Start: 10/03/21 13:02:00 EDT, 1 tab, PO, Daily Start Date: 10/03/21 Status: Ordered nystatin 100,000 units/g topical powder Start: 04/30/23 15:27:00 EST, See Instructions, apply to affected areas topically bid Start Date: 04/30/23 Status: Ordered omeprazole 20 mg oral delayed release tablet Start: 06/12/12 14:01:00, 1 tab, PO, bid Start Date: 06/12/12 Status: Ordered oxyCODONE 5 mg oral tablet Start: 04/30/23 15:28:00 EST, See Instructions, Refills: 0, 2 tab PO q6h prn moderate pain 4-7/10, 3 tabs PO q4h severe pain 7-10/10, PRN: as needed for pain Start Date: 04/30/23 Status: Ordered Plavix 75 mg oral tablet Start: 02/28/13 8:34:00, 1 tab, PO, Daily Start Date: 02/28/13 Status: Ordered spironolactone 50 mg oral tablet Start: 06/25/23 15:07:00 EST, 1 tab, PO, Daily Start Date: 06/25/23 Status: Ordered Vitamin D3 1000 intl units oral tablet Start: 01/29/14 14:20:00, 1 tab, PO, Daily Start Date: 01/29/14 Status: Ordered Mental Status 07/17/23 Barriers to Learning one year None evide nt, Vision impairment, Other: Mandatory Health Literacy Documentation Yes Health Literacy Communication Barriers N ever Primary Language Croatian Problem List Condition Confirmation Course Effective Dates [...] transmetatarsal amputation of foot Confirmed Active S/P BKA (below knee amputation) Confirmed Active S/P amputation of lesser toe Confirmed Active S/P femoral-tibial bypass Confirmed Active S/p bilateral carotid endarterectomy Confirmed Active Hyperlipidemia Confirmed Active HYPERTENSION. Confirmed Active Hypothyroid Confirmed Active Renal cancer Confirmed Active MRSA (methicillin resistant Staphylococcus aureus) Confirmed Active Peripheral artery disease Confirmed Active Peripheral vascular disease Confirmed Active Surgical wound infection Confirmed Active CARMELITA (renal artery stenosis) Confirmed Active Secondary hyperparathyroidism Confirmed Active Postop check Confirmed Active Thyroid disease Confirmed Active Type II diabetes mellitus Confirmed Active Ulcer of heel Confirmed Active Vaginitis Confirmed Active Weight disorder Confirmed Active Diagnosis Diagnosis Type Effective Dates Health Status Clinical Service Informant Below knee amputation Discharge Diagnosis 07/17/23 Procedures Procedure Date Related Diagnosis Body Site Status Left BKA - Below knee amputation 04/11/23 Completed LLE Angiogram w/ [employer] ant tib artery 12/24/22 Completed LLE Angiogram w lithotripsy and [employer] peroneal 06/25/22 Completed LLE Angiogram w/ [employer] peroneal artery 04/21/21 Completed LLE angiogram without intervention 03/25/20 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 09/02/19 Completed lle angio w pilot captain l peroneal a nd stent l common iliac art 07/15/19 Completed Abdominal aortogram w/ [employer]/s [employer] 07/06/19 Completed RLE INTELLIGENCE [employer] BASIC - Endarterectomy of the common femoral artery wi/ bovine patch and fem-ant tib in situ bypass 04/17/19 Compl eted RLE Angiogram without intervention 04/03/19 Completed Revision RLE transmetatarsal amputation 11/11/18 Completed RLE angiogram w/ [employer] peronea l and popliteal artery 10/10/18 Completed Amputation of left 1st toe a nd metatarsal 02/11/18 Completed RLE angiogram w/ [employer] peroneal 11/22/17 Completed RLE angiogram w/ [employer] peronea l, TP trunk and pop 09/16/17 Completed Amputation of Right 3rd toe 07/12/17 Completed RLE Surgical debridement of foot wound, transmetatarsal amp 4th toe, excision 3rd metatartsal and prox phalnx 06/19/17 Completed RLE angiogram w/ [employer]/stent p opliteal artery, [employer] peroneal 06/14/17 Completed RLE 5th toe amputation 04/30/17 Co mpleted RLE angiogram with intervention 02/15/17 Completed RLE Mechanical Atherectomy a nd [employer] of popliteal, thrombolysis/TPA and recheck 02/15/17 Completed [...] to oldest [Reference Range]: 1 Heart Rate 54 bpm (07/17/23 8:51 AM) Blood Pressure 132/48mmHg (07/17/23 8:51 AM) Cuff Pulse Pressure 84 mmHg (07/17/23 8:51 AM) BP Location # 1 Right Arm (07/17/23 8:51 AM) Social History Social History Type Response Smoking Status Never smoked cigaret robert Sex Female [facility] Outpt Note * EDILIA Pastor, Marzena: PERFORM Event Display: [facility] Outpt Note Authored Date: [id number] [facility] OUTPATIENT NOTE Name: BARRON ALMARAZ Patient Number: [id number] : 1945 Date of Service: 07/17/2023 Chief Complaint: _Follow-up for left leg BKA HPI: _Ms. Almaraz is an elderly female presents to Dr. Umana's vascular surgery clinic today for a follow-up appointment regarding her left leg below-knee amputation site. As you may remember the patient is status post left leg below- knee amputation performed on April 11, 2023. She subsequently required debridement of necrotic tissue and wound VAC placement on 06/07/2023. Initial postop visits in our office had indicated excellent granulation of the wound and no further sign of infection. Patientpresents today stating that she has had increased pain with her wound VAC changes, increased drainage per staff at the rehab center, and slight odor. She denies any fevers, nausea, or vomiting. Current Home Meds: (Last Updated 07/17 09:39) DULoxetine (DULoxetine 30 mg oral delayed release capsule) 60 mg PO Daily NIFEdipine (NIFEdipine (Eqv-Procardia XL) 60 mg oral tablet, extended release) 60 mg PO Daily acetaminophen 500 mg prn pain atorvastatin 80 mg PO Daily carvedilol 25 mg PO bid cholecalciferol (Vitamin D3 1000 intl units oral tablet) 1,000 Int_Unit PO Daily ciprofloxacin (Cipro 500 mg oral tablet) 500 mg PO q12h clopidogrel (Plavix 75 mg oral tablet) 75 mg PO Daily docusate (docusate sodium 100 mg oral capsule) 100 mg PO bid ferrous gluconate (ferrous gluconate 324 mg (38 mg elemental iron) oral tablet) 324 mg PO Daily fluconazole (Diflucan 100 mg oral tablet) 100 mg PO Daily formoterol-mometasone (Dulera 200 mcg-5 mcg/inh inhalation aerosol) insulin detemir (Levemir) 6 units subQ qPM insulin lispro (HumaLOG KwikPen 100 units/mL injectable solution) sliding scale with meals levothyroxine 100 mcg PO Daily 200 mcg on sat and sun losartan (losartan 100 mg oral tablet) 100 mg PO Daily nystatin topical (nystatin 100,000 units/g topical powder) apply to affected areas topically bid omeprazole (omeprazole 20 mg oral delayed release tablet) 20 mg PO bid oxyCODONE (oxyCODONE 5 mg oral tablet) PRN: as needed for pain 2 tab PO q6h prn moderate pain 4-7/10, 3 tabs PO q4h severe pain 7-10/10 polyethylene glycol 3350 (MiraLax oral powder for reconstitution) 17 g PO Daily pregabalin (Lyrica 25 mg oral capsule) 25 mg PO qhs spironolactone (spironolactone 50 mg oral tablet) 50 mg PO Daily Allergies and Sensitivities: ensourane tripp(juandice) CHECO Inhibitors(Hives) CHECO Inhibitors(Swelling) IVP dye(hives) Past Medical History: Problems: Surgical wound infection S/P BKA (below knee amputation) Carotid stenosis S/P femoral-tibial bypass Peripheral artery disease Peripheral vascular disease Ulcer of heel Postop check Below knee amputation S/P transmetatarsal amputation of foot Diabetic foot ulcer Pain of right foot Hx of amputation S/P amputation of lesser toe Renal cancer S/p bilateral carotid endarterectomy Atherosclerosis Weight disorder Secondary hyperparathyroidism CKD (chronic kidney disease), stage III Cataract Vaginitis HYPERTENSION. Hyperlipidemia GERD Asthma MRSA (methicillin resistant Staphylococcus aureus) Carotid artery stenosis Thyroid disease CARMELITA (renal artery stenosis) Hypothyroid Type II diabetes mellitus OBJECTIVE Vitals: Last Updated 07/17/23 09:14 Date Temp BP Location Pulse RR SpO2 Pain 07/17/23 9 07/17/23 132/48 Right Arm 54 95 06/04/23 36.7 184/70 Right Arm 63 96 Vital Signs are the last 3 documented. No Orthostatic Data Available Height and Weight: Last Updated 04/07/20 11:16 Date BMI Wt(kg) Wt(lb) Method Ht(cm) (ft-in) Method 04/07/20 70 154 Standing Scale 07/02/19 63.1 139 06/08/19 65.3 144 Standing Scale Heights and Weights are the last 3 documented. Physical Exam Constitutional: In general patient is a healthy-appearing well-nourished well- developed elderly female in no distress. She is in wheelchair. She does have a known right leg below-knee amputation. Herleft leg below-knee amputation site has a gaping wound with necrotic wound edges, significant slough, and opening it is significantly larger than her previous visit here. Wound edges are macerated, and she has erythema on medial aspect and periwound area. There is a slight odor, and moderate serosanguineous drainage from the medial end of the wound ASSESSMENT: _ PLAN: _ 1 ) _status post left leg below the amputation, infected wound Patient appears to have an infection set in to her below-knee amputation site. There is increased necrotic tissue, slough, odor, widening of the wound bed, and poor healing overall. Patient was also seen by Dr. Umana today. At this point we recommended an above-knee amputation, versus debridement of her below-knee amputation site. Debridement of her BKA site would likely involve multiple surgical debridements and continuation of the wound VAC postoperatively. Patient does not wish to undergo multiple procedures, and elects to undergo an above- knee amputation. The procedure risks benefits andalternatives were discussed with the patient by myself at Dr. Umana's request. Patient expresses un derstanding and agreement to proceed. Her was present for today's conversation and office visit. They are advised to call any other questions or concerns. This will be scheduled next week. Wewill also have the patient begin taking Cipro 500 mg p.o. twice daily until her procedure next week. Thank you for letting us participate in the care of this patient. Electronic Signature on File CC: Agustín Jarvis MD [address] [place] [id number] * CC: Kevin Lane MD [facility] [address] [address] * Electronically Reviewed/Signed by: Marzena Pastor PA-C Author Signature Dt/Tm:07/17/2023 11:05 AM [facility] [place] [address] LM Patient Care team information Care Team Personnel Name: LEONARDO Mcintosh Lauren O Position: Nurse Pract - Orthopaedic Surg Member Role: Lifetime Relationship Address: Address: [id number] [place] [address] [place] Name: MD Matheus, Agustín Sánchez Position: Referring DIRECT Member Role: Primary Care Provider Address: Address: [address] [place] [id number] [place] Name: EDILIA Pastor Lynn Position: Physician Payroll Lead Exempt - Vasc Surg Member Role: Lifetime Relationship Address: Address: [address] [place] [address] [place] Name: MD Page Jay D Position: Physician - Urology Member Role: Lifetime Relationship Address: Address: [address] [place] [address] [place] Care Team Related Persons Name: RONDAAXEL Address: home [facility] [address] [place], [place] [id number]
--- OUTSIDE RECORDS SUMMARY | 2023-07-23 23:48 | External Medical Summary ---
Author Name Unknown Address Unknown Organization [id number]:[facility] [address] [place] [address] Laboratory Report Ordering Provider Test Date Status MALIK SHETH 07/19/2023 06:47:00 Final Observation Date Value Abnormality Reference (Units ) Status SYNC LEUKOCYTES IN BLOOD BY AUTOMATED COUNT 07/19/2023 06:47:00 11.26 Above high normal 4.00-10.80 (K/uL) Final Segs 07/19/2023 06:47:00 77.0 Above high normal 40.0-75.0 (%) Final Lymphs % 07/19/2023 06:47:00 15.1 Below low normal 18.0-42.0 (%) Final Monos 07/19/2023 06:47:00 5.2 1.0-11.0 (%) Final Eosinophils 07/19/2023 06:47:00 1.5 0.0-6.0 (%) Final Basos 07/19/2023 06:47:00 0.2 0.0-2.0 (%) Final Immature Granulocyte, Percent 07/19/2023 06:47:00 1.0 0.0-2.0 (%) Final Absolute Segs 07/19/2023 06:47:00 8.67 Above high normal 1.80-7.70 (K/uL) Final Lymphs, absolute 07/19/2023 06:47:00 1.70 1.00-4.80 (K/ul) Final Monos, Abs 07/19/2023 06:47:00 0.59 0.00-1.10 (K/uL) Final Eos, Abs 07/19/2023 06:47:00 0.17 0.00-0.70 (K/uL) Final Basos, Abs 07/19/2023 06:47:00 0.02 0.00-0.20 (K/uL) Final Immature Granulocytes, Number 07/19/2023 06:47:00 0.11 0.00-0.20 (K/uL) Final Performing Location [facility] [address] [facility] [address] [place] [id number]
[2023-07-24] MEDS: HYDROmorphone INJ 0.5 MG/0.5 ML SYR IV STA (00:31)
[2023-07-24] MEDS: hydrALAZINE HCL 20 MG/ML VIAL IV STA (01:09)
[2023-07-24] MEDS: HYDROmorphone INJ 0.5 MG/0.5 ML SYR IV PRN (03:34)
[2023-07-24 08:03] LABS: Basophils # (auto) 0.05 K/uL (0.00-0.20); Basophils % (auto) 0.5 %; Eosinophils % (auto) 0.9 %; Hematocrit (blood only) 24.2 % (37.0-47.0); Hemoglobin 7.9 g/dl (12.0-16.0); Immature Granulocytes # (auto) 0.08 K/uL (0.01-0.20); Immature Granulocytes % (auto) 0.7 %; Lymphocytes # (auto) 1.77 K/uL (1.20-3.40); Lymphocytes % (auto) 16.3 %; Mean Corpuscular Hgb Conc 32.6 g/dL (32.0-36.0); Mean Platelet Volume 11.5 fL (9.4-12.4); Monocytes # (auto) 0.79 K/uL (0.11-0.59); Monocytes % (auto) 7.3 %; Neutrophils # (auto) 8.09 K/uL (1.40-6.50); Neutrophils % (auto) 74.3 %; Platelet Count 289 K/uL (130-400); RDW Coefficient of Variation 14.8 % (11.5-14.5); RDW Standard Deviation 47.8 fL (36.4-46.3); Red Blood Count 2.72 M/uL (4.20-5.40); White Blood Count 10.88 K/ul (4.8-10.8)
[2023-07-24 08:11] LABS: BUN Creatinine Ratio 27.8 (10-20); Calcium 7.4 mg/dl (8.6-10.3); Creatinine Clr Calc Pharmacy 43.6 ml/min; Est GFR (African American) 65.8 ml/min; Est GFR (Non-African American) 56.7 ml/min; Potassium 4.1 mmol/L (3.5-5.1)
[2023-07-24] MEDS: ENOXAPARIN INJ 30 MG/0.3 ML SYR SQ SCH (08:27)
[2023-07-24 08:28] LABS: Polychromasia 1+
--- NOTE | 2023-07-24 13:20 | Surgery Progress Note ---
Date of Service July 24, 2023 Assessment & Plan (1) S/P above knee amputation: Plan: Pt doing well POD #1 after LLE AKA. Lassiter placed d/t post op urinary retention. Continue to monitor for pain control, will require rehab placement. Admission and Anticipated Discharge Date Admission Date: July 23, 2023 Subjective 77 yo POD #1 after LLE AKA, seen in f/u today. Pt admits post op pain and urinary retention, denies other complaints. More appetite today. No further bleeding concerns. Review of Systems Review of Systems: All systems reviewed & are unremarkable except as noted in HPI & below Physical Exam Constitutional: WD/WN, vitals as above not in distress Neck: trachea midline Respiratory: normal respiratory effort, lungs clear to auscultation Auscultation: + diminished lung sounds Cardiovascular: Rate/Rhythm: regular rate and regular rhythm Vessels: + dorsalis pedis pulses abnormal (BLE amputee) Gastrointestinal (Abdomen): Inspection/Auscultation: abdomen normal to inspection and normal bowel sounds Percussion/Palpation: abdomen soft; abdomen nontender Musculoskeletal: Extremities: + amputation noted (BLE) Skin: no rashes, warm and dry (LLE AKA site with dressing in place, no further bleeding noted.) Neurologic: awake; no focal motor deficits and not confused Psychiatric: A+Ox3, euthymic affect Results & Data Vital Signs (Past 12 Hours) Vital Signs Temp Pulse Resp BP Pulse Ox O2 Del Method 07/24/23 07:16 36.5 C 66 16 158/55 H 92 Room Air 07/24/23 03:19 36.5 C 69 18 153/55 H 94 Room Air 07/24/23 01:31 65 156/56 H
--- NOTE | 2023-07-25 15:40 | Surgery Progress Note ---
Date of Service July 25, 2023 Assessment & Plan (1) S/P above knee amputation: Plan: doing well continue OT and PT encourage to keep left leg straight without flexion. will be ready for placement this saturday or saturday Admission and Anticipated Discharge Date Admission Date: July 23, 2023 Subjective Patient without complaint other than wound pain. She had SOB this am but it resolved. Physical Exam Constitutional: WD/WN, vitals as above pulse ox 96 on room air Respiratory: normal respiratory effort and + respiratory distress Auscultation: lungs clear to auscultation bilaterally Cardiovascular: Rate/Rhythm: regular rate and regular rhythm Gastrointestinal (Abdomen): normal bowel sounds, soft, nontender, no hepatosplenomegaly Skin: + incision (stump dressing intact, no fu rther bleeding) Neurologic: CN's II-XI intact bilaterally and moves all extremities Psychiatric: Orientation: alert and oriented x 3 Results & Data Vital Signs (Past 12 Hours) Vital Signs Temp Pulse Resp BP BP Pulse Ox O2 Del Method 07/25/23 14:35 36.6 C 66 16 154/58 H 96 Room Air 07/25/23 11:34 Nasal Cannula 07/25/23 11:04 36.7 C 63 18 133/57 L 95 Room Air 07/25/23 07:41 36.7 C 60 16 131/61 95 Room Air O2 Flow Rate 07/25/23 14:35 07/25/23 11:34 2 07/25/23 11:04 07/25/23 07:41
--- NOTE | 2023-07-26 09:57 | Surgery Progress Note ---
Date of Service July 26, 2023 Assessment & Plan (1) S/P above knee amputation: Plan: doing well POD #3, incision healing well. continue OT and PT encourage to keep left leg straight without flexion. Pt ready for d/c back to rehab once arrangements made. Admission and Anticipated Discharge Date Admission Date: July 23, 2023 Subjective 78 yo f POD #3 after LLE AKA d/t LLE BKA wound dehiscence, seen in f/u today. Pt admits pain in LLE AKA site, but states is improved slightly. Review of Systems Review of Systems: All systems reviewed & are unremarkable except as noted in HPI & below Physical Exam Constitutional: WD/WN, vitals as above not in distress Neck: trachea midline Respiratory: normal respiratory effort, lungs clear to auscultation Auscultation: + diminished lung sounds Cardiovascular: Rate/Rhythm: regular rate and regular rhythm Vessels: + dorsalis pedis pulses abnormal (BLE amputee) Gastrointestinal (Abdomen): Inspection/Auscultation: abdomen normal to inspection and normal bowel sounds Percussion/Palpation: abdomen soft; abdomen nontender Musculoskeletal: Extremities: + amputation noted (BLE) Skin: no rashes, warm and dry (LLE AKA site with dressing in place, no further bleeding noted.) Neurologic: awake; no focal motor deficits and not confused Psychiatric: A+Ox3, euthymic affect Results & Data Vital Signs (Past 12 Hours) Vital Signs Temp Pulse Resp BP Pulse Ox O2 Del Method 07/26/23 06:21 36.8 C 67 18 179/71 H 95 Room Air
[2023-07-26] MEDS: oxyCODONE HCL IR 5 MG TAB (IMMEDIATE RELEASE) PO PRN (10:41)
[2023-07-26] MEDS: hydrALAZINE HCL 20 MG/ML VIAL IV STA (22:24)
--- NOTE | 2023-07-27 01:14 | Hospitalist Consultation ---
Date of Consultation July 27, 2023 Assessment & Plan (1) Hypertension: Patient with known history of HTN on 4 agents - losartan 100 mg, nifedipine 60 mg, spironolactone 50 mg, and carvedilol 25 mg BID. Significantly elevated with SBP in the 220s - asymptomatic. Given hydralazine 10 mg IV by primary team - vascular surgery. Will give another 10 mg hydralazine now. Would recommend changing from losartan to an ARB with a longer half life such as olmesartan or dosing the losartan BID. History sounds like patient's BP is in the 200s outpatient as well. Unclear if patient adherent in an outpatient setting. Would treat acutely for BP > 210/110 or symptomatic. HR may tolerate Lopressor if needed though unsure if that can be given on 3W. Can also consider increasing the dose of nifedipine, spironolactone, or carvedilol. If patient truly taking her medications as prescribed and having continued BP > 200 outpatient it may be worth looking for reasons for resistant hypertension. Last PCP note 01/2023 BP was < 140/90. Would recommend PCP f/u AM CBC/CMP Would treat acutely for BP > 210/110 or symptomatic Continue lovenox for DVT ppx (2) S/P above knee amputation: See surgery progress note. (3) Hypertensive urgency: Supervising Physician Co-Signing Physician Notes Attending addendum: I have physically seen this patient, have supervised the medical residents activities, and agree with the H&P unless as otherwise noted. Assessment and Plan: Hypertension- Continuing on outpatient regimen of losartan, nifedipine, spironolactone and carvedilol Was given hydralazine 10 mg IV by primary team and repeating a dose now Ensure adequate pain control If blood pressure still elevated, next change would be to increase carvedilol dosing from 25 mg p.o. twice daily to 37.5 mg p.o. twice daily Status post left lower extremity AKA- Management per primary team History of Present Illness Reason for Consultation: elevated BP Requesting Physician: Wesley Umana MD Attending Physician: Dr. Davis History of Present Illness Patient here for LLE AKA with Dr. Umana now POD3 with plans to return to [place] tomorrow AM. Patient is POD3 and is having elevated BPs. Hospitalist team consulted for BP management. Patient on carvedilol 25 mg BID, losartan 100 mg QAM, nifedipine 60 mg QHS, and spironolactone 50 mg QAM. Most recent BP 207/71. Improved following 10 mg IV hydralazine. Patient asymptomatic - no headaches, double vision, chest pain, SOB, sweating, jaw pain, or arm pain. Does have continued left leg pain. Allergies Allergy/AdvReac Type Severity Reaction Status Date / Time enflurane Allergy Severe nausea, Verified 07/23/23 06:09 jaundiced Iodinated Contrast Media Allergy Intermediate Hives- IVP Verified 07/23/23 06:09 dye CHECO Inhibitors Allergy Mild hives Verified 07/23/23 06:09 nickel Allergy Mild Redness, Verified 07/23/23 06:09 itching liraglutide [From Victoza] AdvReac Severe Severe Verified 07/23/23 06:09 nausea gabapentin AdvReac Intermediate Confusion Verified 07/23/23 06:09 Home Medications Medication Instructions Recorded Confirmed Type glucagon HCl 1 mg solution for 1 mg subcut Q20M PRN hypoglycemia 06/29/21 07/23/23 Rx injection (Glucagon (HCl) #1 ea Emergency Kit) atorvastatin 80 mg tablet 80 mg PO QPM #90 tabs 02/23/22 07/23/23 Rx cholecalciferol (vitamin D3) 25 1,000 unit PO HS 06/19/22 07/23/23 History mcg (1,000 unit) capsule (Vitamin D3) clopidogrel 75 mg tablet (Plavix) 75 mg PO QAM #90 tabs 07/12/22 07/23/23 Rx mometasone-formoterol HFA 200 2 puff inhalation BID PRN 12/20/22 07/23/23 History mcg-5 mcg/actuation aerosol Shortness Of Breath inhaler (Dulera) carvedilol 25 mg tablet (Coreg) 25 mg PO BID #180 tabs 01/23/23 07/23/23 Rx docusate sodium 100 mg capsule 100 mg PO BID 02/05/23 07/23/23 History (Dulcolax Stool Softener (docusate)) acetaminophen 500 mg tablet 1,000 mg (2 x 500 mg) PO Q8H PRN 02/15/23 07/23/23 Rx (Tylenol Extra Strength) fever or pain #30 tabs insulin lispro 100 unit/mL 1 sliding scale dose subcut ACHS 02/15/23 07/23/23 Rx subcutaneous solution (Humalog #10 mL U-100 Insulin) omeprazole 20 mg capsule,delayed 20 mg PO HS 03/20/23 07/23/23 History release spironolactone 50 mg tablet 50 mg PO QAM 03/20/23 07/23/23 History levothyroxine 100 mcg tablet See Rx Instructions .Route .COMPLEX 04/08/23 07/23/23 History insulin detemir U-100 100 unit/mL 6 unit (0.06 mL) subcut HS #1 mL 04/18/23 07/23/23 Rx subcutaneous solution (Levemir U-100 Insulin) nystatin 100,000 unit/gram topical 1 applic topical BID PRN Skin 06/04/23 07/23/23 History powder Irritation oxycodone 5 mg tablet 15 mg (3 x 5 mg) PO Q6H PRN pain 06/14/23 07/23/23 Rx #10 tabs polyethylene glycol 3350 17 gram 17 g PO DAILY #30 ea 06/14/23 07/23/23 Rx oral powder packet (Miralax) duloxetine 30 mg capsule,delayed 60 mg PO BID 07/17/23 07/23/23 History release sprinkle ferrous gluconate 324 mg (37.5 mg 324 mg PO BID #60 tabs 07/26/23 07/23/23 Rx iron) tablet losartan 50 mg tablet 50 mg PO BID #60 tabs 07/27/23 Rx nifedipine 90 mg tablet,extended 90 mg PO HS 30 days #30 tabs 07/27/23 Rx release oxycodone 5 mg tablet 5 mg PO Q6H PRN pain 3 days #12 07/27/23 Rx tabs Patient History Medical History (Updated 07/27/23 @ 11:02 by Sally Tierney MD) Wound dehiscence Admitted to [facility] 06/04/23-06/14/23- had debridement with revision 06/07/[address] Umana- treated with abx Constipation TMJ derangement no current issues Cerebral aneurysm "very small"/under suveillance S/P angiogram of extremity left leg Conductive hearing loss of right ear Hypothyroidism Diabetes IDDM Osteoporosis Scleroderma CREST syndrome follows with PCP Chronic GERD Benign essential hypertension Raynauds syndrome Hx of renal cell cancer R renal (2012) s/p right nephrectomy, no chemo/xrt Anemia Chronic PAD (peripheral artery disease) History of MRSA infection 04/2017 (right foot - has since been amputated) > "no active infection" Carotid artery stenosis s/p Left CEA (2002), right CEA (1995) Vascular monitoring (Dr. Umana) Renal artery stenosis Right renal stent attempted 2010, s/p right nephrectomy 2012 Diverticular disease GERD (gastroesophageal reflux disease) Chronic kidney disease Stage III Deep vein thrombosis RLE DVT dx 2017; "chronic" PCP/vascular monitoring Hyperlipidemia Hypertension Asthma Surgical History (Updated 07/24/23 @ 13:18 by Marzena Pastor PA-C) S/P trigger finger release Status post amputation of left foot through metatarsal bone Status post below knee amputation of right lower extremity History of transmetatarsal amputation of left foot History of esophagogastroduodenoscopy (EGD) S/P amputation right Below the knee amputation History of oophorectomy B/L OVARIES History of carpal tunnel surgery right History of left breast biopsy 1997 (benign) Below-knee amputation of right lower extremity H/O sinus surgery History of angioplasty MULTIPLE OF LE'S WITH STENTS TO LOWER EXTREMITIES PLACED History of procedure for peripheral vascular disease LEFT POPLITEAL S/P PERONEAL ARTERY BYPASS 2012; RLE ANGIO WITH INTERVENTION 06/2017 H/O carotid endarterectomy LEFT (2002), RIGHT (1995) History of atherectomy LEFT (02/2017) History of amputation of lesser toe of right foot MULTIPLE TOE AMPUTATIONS/I&D (ALL RT TOES; all the left toes have been amputated) [place] of [place] [place] Nausea and vomiting after administration of anesthetic agent Hx of lumpectomy LEFT BREAST (BENIGN) History of hysterectomy MERYL W/ BSO History of nephrectomy RIGHT (2012) renal cell carcinoma History of appendectomy History of cholecystectomy History of colonoscopy History of endoscopic sinus surgery History of cataract surgery RT/LEFT History of tonsillectomy Family History Father Family hx of colon cancer Family history of diabetes mellitus Mother Lung cancer Stroke Unknown Rheumatoid arthritis Other No family history of adverse response to anesthesia No family history of bleeding disorder Social History Smoking Status: Unknown if ever smoked Second Hand Exposure: No; Do You Dip or Chew Tobacco: No; Hx Alcohol Use: No Hx Substance Use: No Preferred Language: French Communication Ability: Effective Visual Impairment: No Limitations Hearing Ability: Normal Pot Pusher Required: No Beliefs That Will Affect Care: None marital status: Current Living Situation: [facility] Current Living Situation Comment: lives in 1 story home with . home nursing 3x/week current occupational status: retired How many Children do You have: 0 How many Children do You have Comment: able to assist with care as needed. Feels Safe at Home: Yes Diet: diabetic during the past year weight has: decreased > 10 lbs Seatbelt Use: always Do you think of yourself as: straight/heterosexual Gender Identity: Female Assistive Devices: Walker Review of Systems Review of Systems: See HPI Physical Exam Physical Exam: Gen: well appearing patient in NAD HEENT: AT NC MMM Resp: CTAB no wheezing no increased work of breathing CV: RRR no m/r/g, clinically well perfused Abd: soft, non-tender, non-distended MSK: no obvious deformities Skin: no rashes or bruising Neuro: alert and oriented Psych: appropriate mood and affect Results & Data Results & Data Vital Signs (Past 12 Hours) Vital Signs Temp Pulse Resp BP Pulse Ox O2 Del Method 07/27/23 00:58 207/71 H 07/27/23 00:33 215/89 H 07/26/23 21:40 217/79 H 07/26/23 19:45 36.3 C L 76 16 222/82 H 98 Room Air 07/26/23 15:23 36.8 C 65 16 189/69 H 95 Room Air Resident Activity Tracking Resident Involvement: Resident Care Provided Care Provided: Adult Hospital Medicine
[2023-07-27] MEDS: hydrALAZINE HCL 20 MG/ML VIAL IV STA (01:50)
[2023-07-27] MEDS: LEVOTHYROXINE SODIUM 200 MCG TABLET PO SCH (05:44)
[2023-07-27 06:31] LABS: Hematocrit (blood only) 26.1 % (37.0-47.0); Hemoglobin 8.4 g/dl (12.0-16.0); Mean Corpuscular Hemoglobin 28.4 pg (25.0-34.0); Mean Corpuscular Hgb Conc 32.2 g/dL (32.0-36.0); Mean Corpuscular Volume 88.2 fL (80.0-100.0); Platelet Count 302 K/uL (130-400); RDW Coefficient of Variation 14.2 % (11.5-14.5); RDW Standard Deviation 46.2 fL (36.4-46.3); Red Blood Count 2.96 M/uL (4.20-5.40); White Blood Count 7.31 K/ul (4.8-10.8)
[2023-07-27 06:41] LABS: Albumin Globulin Ratio 0.9 (0.9-2); Albumin Level 2.4 gm/dl (3.4-5.0); BUN Creatinine Ratio 17.2 (10-20); Bilirubin,Total 0.2 mg/dl (0.2-1.0); Calcium 7.6 mg/dl (8.6-10.3); Creatinine Clr Calc Pharmacy 65.1 ml/min; Est GFR (African American) 99.8 ml/min; Est GFR (Non-African American) 86.1 ml/min; Globulin 2.6 gm/dl (2.5-4.0); Potassium 3.4 mmol/L (3.5-5.1)
[2023-07-27] MEDS: LOSARTAN POTASSIUM 50 MG TAB PO SCH (08:55)
[2023-07-27] MEDS: ONDANSETRON INJ 2 MG/ML 2 ML VIAL IV STA (10:17)
[2023-07-27] MEDS: oxyCODONE HCL IR 5 MG TAB (IMMEDIATE RELEASE) PO SCH (10:18)
[2023-07-27] MEDS: ACETAMINOPHEN 500 MG TAB PO SCH (10:18)
--- NOTE | 2023-07-27 10:59 | Hospitalist Progress Note ---
Date of Service July 27, 2023 Assessment & Plan (1) Hypertension: Plan: -Known history of resistant HTN as outpatient and hospitalist consult placed for elevated BP during hospitalization s/p LLE AKA -Home regimen- losartan 100 mg daily, nifedipine 60 mg Hs, spironolactone 50 mg daily, and carvedilol 25 mg BID. -Did receive hydralazine 10 mg IV x2 during hospitalization for acutely elevated SBP 220+ though asymptomatic -Medications adjusted during hospitalization and to be continued on discharge -Losartan 100 mg daily switched to 50 mg BID -Nifedipine 60 mg Hs increased to 90 mg Hs -Pt did report some ongoing daytime somnolence/fatigue with morning headaches and unknown if she snores. Would recommend [facility] evaluation as outpatient to assess cause of resistant HTN -Cardiology evaluation as outpatient (2) S/P above knee amputation: Plan: -See surgery progress note -Increased surgical site pain on exam today- discussed case with vascular surgery and adjusted pain medication for scheduled Tylenol and oxycodone 5 mg q4h (3) Anemia: Plan: -Hgb 8.4 noted, baseline appears 9-10 -No active bleeding noted, anemia likely in aftermath of recent AKA -Repeat CBC as outpatient (4) Hypokalemia: Plan: -K 3.4 -Repleted today -Repeat BMP as outpatient (5) Hyponatremia: Plan: -Na 133 -Likely due to reduced solute intake after surgery -Repeat BMP as outpatient (6) Elevated alkaline phosphatase level: Plan: -ALP 180 -Secondary to recent AKA -Repeat CMP as outpatient Admission and Anticipated Discharge Date Admission Date: July 23, 2023 Supervising Physician Co-Signing Physician Notes Attending attestation Pt seen and examined in concert with Dr. Tierney. In agreement with the documented findings as noted in the resident documentation with any exceptions or additions as noted here. Patient reports no symptoms concerning for HTN with the exception of intermittent headaches, none recently. Main concern presently is 9/10 aching pain of the operative site at time of examination consistent with her previous amputation experiences. On examination, S1/S2 nl RRR no MCG. CTAB. Abd NT/ND BS+ve Hypertension - increase nifedipine to 90mg qHS and follow up in outpatient setting for further adjustment w/ precautions for adverse effects and worsening sx reviewed. Post-left AKA - would recommend increased pain control w/ Oxy 5mg q4h PRN pain for the next 2-3 days Else see resident documentation as noted. Subjective Acute events overnight- none. Pt examined at bedside. She reports mild intermittent headache but no chest pain, vision change. Reports surgical site pain with severity 9/10. Review of Systems Review of Systems: See HPI Physical Exam Physical Exam: Gen: well appearing patient in NAD HEENT: AT NC MMM Resp: CTAB no wheezing no increased work of breathing CV: RRR no m/r/g, clinically well perfused Abd: soft, non-tender, non-distended MSK: S/p LLE AKA Skin: no rashes or bruising Neuro: alert and oriented Psych: appropriate mood and affect Results & Data Results & Data Vital Signs (Past 12 Hours) Vital Signs Temp Pulse Pulse Resp BP BP Pulse Ox 07/27/23 10:12 36.6 C 76 74 16 154/58 H 121/53 L 96 07/27/23 10:02 74 121/53 L 96 07/27/23 06:57 36.6 C 74 16 192/72 H 96 07/27/23 03:02 185/69 H 07/27/23 00:58 207/71 H 07/27/23 00:33 215/89 H O2 Del Method 07/27/23 10:12 07/27/23 10:02 Room Air 07/27/23 06:57 Room Air 07/27/23 03:02 07/27/23 00:58 07/27/23 00:33 Resident Activity Tracking Resident Involvement: Resident Care Provided Care Provided: Adult Hospital Medicine (3) Anemia Anemia type: unspecified type Qualified Code(s): D64.9 - Anemia, unspecified
[2023-07-27] MEDS: POTASSIUM CHLORIDE CRTAB 20 MEQ TABCR PO STA (11:24)
--- NOTE | 2023-07-27 19:45 | Billing Data ---
Date of Service July 27, 2023 Coding Level of Care Code 29774 IN/OBS CONSULT LVL 3,45M
[2023-07-27] MEDS ORDERED: NIFEdipine EXTENDED REL 30 MG TABCR PO SCH (21:00)
== END 2023-07-27 12:18 | DRG 475 ==
LOC: ASU 05:42 → SUATTDRO 07:32 → 3W 07:32